=== PATIENT | female | born 1980 | race Caucasian/White ===

== ENCOUNTER → 2018-03-14 20:44 | Outpatient (CLI) | payer OTHER, SELFPAY | PROVIDERS: Visit Provider Obstetrics & Gynecology | DX: Z12.4 Encounter for screening for malignant neoplasm of cervix (principal) | CPT/HCPCS: 87624; 88175; G0145 ==

== ENCOUNTER → 2018-04-22 09:29 | Outpatient (CLI) | payer OTHER, SELFPAY ==
[2018-01-18 07:03] VITALS: BMI 24.1
--- NOTE | 2018-04-22 10:02 | BI_ITS ---
MAMMOGRAPHY - BILATERAL SCREENING REASON FOR EXAM: Female, 37 years old. Routine annual screening examination. PERTINENT HISTORY: Aunt with breast cancer. TECHNIQUE: Digital bilateral breast delfino (3D mammographic acquisition) in the CC and MLO projections. 2-D mediolateral oblique (MLO) and craniocaudad (CC) views of both breasts were obtained. CAD: Full Field Digital Mammography with Computer Added Detection was performed. COMPARISON: Comparison is made with prior study dated December 02, 2016. FINDINGS: Breast Composition: The breasts are heterogeneously dense, which may obscure small masses. There are no dominant masses or suspicious calcifications. No other significant abnormalities are identified. There has been no significant change since the prior study. BI/SCREENING MAMM (CAD), BILAT IMPRESSION: Stable bilateral screening mammogram. Yearly follow-up mammogram recommended. (A) ASSESSMENT CATEGORY: BIRADS Category 1: Negative. A letter regarding these results will be sent to the patient by the facility within 30 days. Approximately 10% of breast cancers are not detected by mammography. A normal mammogram should not delay biopsy of a clinically suspicious abnormality. [id number] Electronically Signed: Alden Garcia MD at 15:28 EST Tel [phone], Service support ,
== END ==
PROVIDERS: Family Provider Family Medicine; PCP Family Medicine; Referring Provider Obstetrics & Gynecology; Visit Provider Obstetrics & Gynecology
DX: Z12.31 Encounter for screening mammogram for malignant neoplasm of breast (principal)
CPT/HCPCS: 77063; 77067

== ENCOUNTER → 2018-04-24 16:17 | Outpatient (CLI) | payer OTHER, SELFPAY ==
[2018-04-24 15:48] VITALS: BMI 25.2
== END ==
PROVIDERS: Family Provider Family Medicine; PCP Family Medicine; Referring Provider Chiropractor; Visit Provider Chiropractor
DX: M99.01 Segmental and somatic dysfunction of cervical region (principal)
CPT/HCPCS: 72040

== ENCOUNTER → 2018-11-13 14:05 | Outpatient (CLI) | payer OTHER, SELFPAY ==
[2018-10-23 14:49] VITALS: BMI 25.2
== END ==
PROVIDERS: Family Provider Family Medicine; PCP Family Medicine; Referring Provider Family Medicine; Visit Provider Family Medicine
DX: N39.0 Urinary tract infection, site not specified (principal)
CPT/HCPCS: 87077; 87086; 87088; 87186

== ENCOUNTER → 2018-11-23 11:14 | Outpatient (CLI) | payer OTHER, SELFPAY ==
[2018-10-23 14:49] VITALS: BMI 25.2
--- NOTE | 2018-11-23 11:17 | US_ITS ---
STUDY: RENAL ULTRASOUND - COMPLETE REASON FOR EXAM: Female, 38 years old. Recurring urinary tract infections TECHNIQUE: Ultrasound evaluation of the kidneys was performed with real-time and static devries-scale imaging. COMPARISON: None. FINDINGS: RIGHT KIDNEY: Normal location of the right kidney, which is normal in size. The right kidney measures 9.9 cm. There is a normal cortex of the right kidney. The renal cortex measures 1.1 cm. There is no right renal mass or cyst. There are no right renal calculi. There is no right hydronephrosis. DISTAL RIGHT URETER: There is non-visualization of the distal right ureter. There is no demonstrated right ureterovesical junction calculus. There is a visualized right ureteral jet. LEFT KIDNEY: Normal location of the left kidney, which is normal in size. The left kidney measures 9.2 cm. There is a normal cortex of the left kidney. The renal cortex measures 1.5 cm. There is no left renal mass or cyst. There is a 4 mm echogenic focus within the lateral left renal cortex. There is no left hydronephrosis. DISTAL LEFT URETER: There is non-visualization of the distal left ureter. There is no demonstrated left ureterovesical junction calculus. There is a visualized left ureteral jet. BLADDER: The distended urinary bladder has a volume of 215.29 ml. The empty urinary bladder has a volume of 9.44 ml. There is a normal wall thickness of the distended urinary bladder. There is no demonstrated mass within the urinary bladder. There are no demonstrated bladder calculi. US/Kidney and Bladder IMPRESSION: 4 mm echogenic focus lateral left kidney most likely a renal calculus, this could also represent small interlobar vessel less likely. Otherwise unremarkable. Electronically Signed: [place], at 17:03 EDT Tel , Service support ,
== END ==
PROVIDERS: Family Provider Family Medicine; PCP Family Medicine; Referring Provider Urology; Visit Provider Urology
DX: N39.0 Urinary tract infection, site not specified (principal)
CPT/HCPCS: 76770

== ENCOUNTER → 2018-11-24 16:42 | Outpatient (CLI) | payer OTHER, SELFPAY ==
[2018-10-23 14:49] VITALS: BMI 25.2
[2018-11-24 17:35] LABS: Absolute Neutrophil Count 3.3 X10^3/uL (2.0-7.7); Basophil# 0.05 X10^3/uL; Basophil% 0.9 % (0-1); Eosinophil# 0.09 X10^3/uL; Eosinophils% 1.6 % (0-5); Hematocrit 42.9 % (37-47); Hemoglobin 14.7 g/dl (12.0-15.0); Lymphocyte % 32.8 % (19-41); Mean Corp Hgb Conc 34.3 g/gl (32-36); Mean Corpuscular Hgb 30.8 pg (27.0-32.0); Mean Corpuscular Volume 89.7 fL (81-99); Monocyte# 0.45 X10^3/uL; Monocyte% 7.8 % (0-10); Neutrophil # 3.29 X10^3/uL (2.7-7.7); Neutrophil % 56.7 % (47-70); Platelet Count 291 K/mm3 (150-450); RBC Distribution Width SD 39.3 fl (35.1-43.9); Red Blood Count 4.78 M/mm3 (4.2-5.4); White Blood Count 5.8 K/mm3 (4.4-11.0)
[2018-11-24 17:46] LABS: POSITIVE COUNT NO; POSITIVE DIFFERENTIAL NO; POSITIVE MORPHOLOGY NO
[2018-11-24 17:56] LABS: ALB/GLOB Ratio 1.5 RATIO (0.9-2.4); AST(SGOT) 18 U/L (15-37); Alanine Aminotransfer ALT/SGPT 27 U/L (13-56); Albumin, Serum 4.3 g/dL (3.2-5.0); Alkaline Phosphatase 61 U/L (45-117); Anion Gap 12 (5-15); BUN 10 mg/dL (7-18); BUN/Creat Ratio 12.8 RATIO (10-20); Calcium,Total 8.9 mg/dL (8.5-10.1); Chloride 101 mmol/L (98-107); Cholesterol 199 mg/dL (200); Creatinine, Serum 0.78 mg/dL (0.55-1.02); EST Glomerular Filtration Rate 87 mL/min (>60); Est Glom Filt Rate - Afr Amer 105 mL/min (>60); Globulin 2.9 g/dL (2.2-4.2); Glucose 93 mg/dL (74-106); High Density Lipoprotein 98 mg/dL; Potassium 3.7 mmol/L (3.5-5.1); Protein, Total 7.2 g/dL (6.4-8.2); Sodium Level 141 mmol/L (136-145); Thyroid Stim Hormone (TSH) 2.78 uIU/mL (0.358-3.74); Triglycerides 45 mg/dL; Very Low Density Lipoprotein 9 mg/dL (5-40)
== END ==
PROVIDERS: Family Provider Family Medicine; PCP Family Medicine; Referring Provider Family Medicine; Visit Provider Family Medicine
DX: R03.0 Elevated blood-pressure reading, without diagnosis of hypertension (principal)
CPT/HCPCS: 36415; 80053; 80061; 84443; 85025

== ENCOUNTER → 2018-11-28 13:56 | Outpatient (CLI) | payer OTHER, SELFPAY ==
[2018-10-23 14:49] VITALS: BMI 25.2
--- NOTE | 2018-11-28 14:00 | CT_ITS ---
STUDY: CT ABDOMEN AND PELVIS WITHOUT CONTRAST REASON FOR EXAM: Female, 38 years old. Abnormal renal ultrasound,, possible stone. RADIATION DOSAGE (If Supplied By Facility): CTDIvol = ( 8.78 ) mGy, DLP = ( 366.88 ) mGycm TECHNIQUE: Transaxial images were obtained from the dome of the diaphragm to the symphysis pubis without oral contrast, and without intravenous contrast. Sagittal and coronal images were reconstructed. Individualized dose optimization techniques were used for this CT. COMPARISON: Renal ultrasound 11/23/2018 FINDINGS: The visualized lung bases are unremarkable. The visualized portions of the heart are within normal limits. Normal liver. Normal gallbladder and extrahepatic biliary system. Normal spleen. Normal pancreas. Normal bilateral adrenal glands. Normal right kidney. Normal left kidney. Normal visualized stomach. Normal small intestine. Large amount of stool throughout the colon suggestive of constipation. The appendix is visualized and appears normal. Normal abdominal aorta. Normal inferior vena cava. Normal retroperitoneum. Normal urinary bladder. Normal abdominal wall. Normal osseous structures. CT/Abdomen/Pelvis without Cont IMPRESSION: 1. No renal or ureteral stone. 2. Suspect constipation. Electronically Signed: Kristopher Kumar MD at 17:40 EDT Tel , Service support ,
== END ==
PROVIDERS: Family Provider Family Medicine; PCP Family Medicine; Referring Provider Urology; Visit Provider Urology
DX: N20.0 Calculus of kidney (principal)
CPT/HCPCS: 74176

== ENCOUNTER → 2019-02-14 16:08 | Outpatient (CLI) | payer OTHER, SELFPAY ==
[2019-02-12 10:43] VITALS: BMI 25.2
--- NOTE | 2019-02-14 16:10 | US_ITS ---
STUDY: ULTRASOUND OF PELVIS CLINICAL: Female, 38 years old. Chronic constipation TECHNIQUE: Transvaginal and transabdominal COMPARISON: None. FINDINGS: Status post hysterectomy.. Normal right ovary, measuring 3.0 x 2.3 x 1.3 cm. There are multiple follicles without a dominant cyst. Normal left ovary, measuring 3.0 x 2.0 x 1.3 cm. There is a 1.2 cm dominant cyst. There is no free fluid in the pelvis. US/Pelvic (Non ) IMPRESSION: Status post hysterectomy. Small left ovarian cyst. Electronically Signed: Dipesh Andrade DO at 18:11 EDT Tel [phone], Service support ,
== END ==
PROVIDERS: Family Provider Family Medicine; PCP Family Medicine; Referring Provider Obstetrics & Gynecology; Visit Provider Obstetrics & Gynecology
DX: K59.00 Constipation, unspecified (principal)
CPT/HCPCS: 76856; 93976

== ENCOUNTER 2019-02-27 06:24 | Day surgery (SDC) | payer OTHER, SELFPAY ==
--- NOTE | 2019-02-21 02:34 | HP_ITS ---
Intake Vital Signs 02/21/19 Body Mass Index (BMI) 25.2 02/21/19 Height 5 ft 2 in 02/21/19 Weight: 136 lb 02/21/19 Body Mass Index (BMI) 24.8 02/21/19 Blood Pressure 136/85 H 02/21/19 Blood Pressure Location Rt brachial 02/21/19 Respiratory Rate 16 Intake Visit Reasons: Change of Bowel Habits Chief Complaint: r/o adhesions Therapy Site Coordinator Required: No Is patient in pain?: No Allergies hydromorphone [From Dilaudid] Allergy (Verified 02/21/19 14:05) Rash CHLORAPREP Allergy (Uncoded 02/21/19 14:05) Hives Medications lactobacillus combination no.8 3 billion cell capsule 3,000 mmu cells PO DAILY 02/12/19 [History Confirmed 02/21/19] linaclotide 145 mcg capsule 145 mcg PO DAILY 02/12/19 [History Confirmed 02/21/19] lisinopril 20 mg-hydrochlorothiazide 25 mg tablet 1 tab PO DAILY 02/12/19 [History Confirmed 02/21/19] multivitamin,ez-fgjx-kxoptsmt tablet 1 tab PO DAILY 02/12/19 [History Confirmed 02/21/19] PFSH Medical History (Updated 02/21/19 @ 14:05 by Sowmya Phillips) Constipation (Acute) Surgical History History of LAVH (Acute) History of bunionectomy of both great toes (Acute) Family History Other Breast cancer Diabetes Hypertension Social History (Updated 02/21/19 @ 14:34 by Kevin Licona MD) Smoking Status: Never smoker alcohol intake: current alcohol intake frequency: a few times a week Alcohol type: wine details: social substance use type: does not use caffeine: Yes what type of physical activity do you participate in: none seatbelt use: always do you feel safe at home: Yes additional social history: [employer]- [employer]. Patient works at [employer] HPI HPI HPI: RAMANDEEP SNOW, is a 38 F who presents to the office today for HPI HPI Surgical H&P: Yes HPI: RAMANDEEP SNOW, is a 38 F who presents to the office today for chronic constipation. Patient reports that she had lap scopic assisted vaginal hysterectomy in 2014. Ever since shortly after surgery she has been having constipation. She is tried multiple medications including senna and Linzess. She reports that the only time she feels relief is that she has liquid bowel movements. She reports that her abdomen does hurt when she is constipated. She says that her stools have changed caliber and are very thin. She has no family history of colon cancer. She denies any blood in her stool. She has never had a colonoscopy. ROS General General: Yes fatigue; no weight change Cardio Cardiovascular: Yes high blood pressure; no murmur, pacemaker, heart disease, atrial fibrillation, heart attack, heart stent, palpitations, shortness of breat with exertion or chest pain Psych Psychiatric: Yes anxiety; no depression Resp Respiratory: No shortness of breath, No sleep apnea, No cough, No COPD, No asthma, No emphysema, No wheezing Gastro Gastrointestinal: Yes abdominal pain, No nausea or vomiting, No diarrhea, Yes constipation, No blood in stool, No acid reflux, No hemorrhoids, No ulcers, No gallbladder problem, No black,tarry stools Jony Hematologic: No blood thinners Exam Const General: cooperative Orientation: alert, oriented x3 Resp Effort & Inspection: normal respiratory effort Auscultation: clear to auscultation bilaterally Cardio Rate: regular rate Rhythm: regular rhythm Heart Sounds: no murmurs GI Inspection: non-distended Palpation: soft, nontender Assessment & Plan Problems 1. Chronic constipation K59.09 likely increased due to anatomical changes in pelvic loffor strength and distribution after hysterectomy. recommend elimination diet, colonoscopy and GI eval. consider naturopathic intervention if normal and/or pelvic floor physical therapy. 2. Change in stool caliber R19.5 Plan The patient is having chronic constipation. She says that her stool calibers of also change. She says this started abruptly with her hysterectomy. The patient reports that she does have abdominal pain with the constipation. She is taking Linzess and using MiraLAX. She also uses senna. I recommend starting with a colonoscopy to check for stricture or external compression. If this is not conclusive she will have barium enema. I explained endoscopy in detail to the patient. I explained the risks including but not limited to stroke or heart attack with anesthesia, perforation of the GI tract, bleeding, infection. I explained that any of these could necessitate further emergency surgery. The patient understands and all questions were answered sufficiently. The patient wishes to proceed with procedure. Kevin Licona MD Pager: [facility] [address] [place] [address], [address] [place] [address] Office: Orders Orders: Colonoscopy Today K59.09, R19.5 Plan Detail Goals Decrease pain Decrease spasm Barriers Decreased lordosis Coding Level of Care Code Off vis,new,level 3 Diagnoses Chronic constipation K59.09 Change in stool caliber R19.5 02/21/19 1434 <Electronically signed by Kevin villalba MD> Date _ Kevin Licona MD I have re-examined the patient. There are no clinical changes since date of exam.
[2019-02-21 14:06] VITALS: BMI 25.2
[2019-02-27 07:01] VITALS: BP 117/78; PULSE 61; RESP 14; TEMP 37.1; O2SAT 100; BMI 24.7
[2019-02-27] MEDS: Lactated Ringers 1,000 ML 100 ML IV (07:13)
[2019-02-27 08:25] VITALS: BP 117/78; BP 91/57; PULSE 72; RESP 16; TEMP 36.2; O2SAT 97
--- NOTE | 2019-02-27 08:27 | OP.ENDO_ITS ---
02/27/2019 Tony Severino MD [address] [phone] Re : Colonoscopy procedure for Kerri Barry Dear Dr. Severino This procedure was performed on Wednesday, February 27, 2019. My impressions and recommendations are as follows: Impressions : - The entire examined colon is normal on direct and retroflexion views. - No specimens collected. Recommendations : - Discharge patient to home. - Resume previous diet. - Continue present medications. - Repeat colonoscopy in 10 years for screening purposes. My findings are described in the full procedure note, which is enclosed. If I can be of further assistance, please feel free to contact me at Doctor phone number(s): , Work: . Sincerely, Kevin Licona MD 02/27/2019 8:27:19 AM This report has been signed electronically.
[2019-02-27 08:30] VITALS: BP 117/78; BP 96/52; PULSE 66; RESP 16; O2SAT 100
[2019-02-27 08:35] VITALS: BP 111/59; BP 117/78; PULSE 62; RESP 18; O2SAT 100
[2019-02-27 08:40] VITALS: BP 117/78; BP 91/62; PULSE 62; RESP 18; TEMP 36.7; O2SAT 100
[2019-02-27 08:45] VITALS: BP 117/78
== END 2019-02-27 09:29 | disposition home or self-care (01) ==
LOC: EN 06:26 → AC 06:28
PROVIDERS: Family Provider Family Medicine; PCP Family Medicine; Referring Provider Family Medicine; Visit Provider Surgery
PROC: 0DJD8ZZ Inspection of Lower Intestinal Tract, Via Natural or Artificial Opening Endoscopic (ICD-10-PCS; CPT 45378; principal; 2019-02-27 07:55)
DX: K59.04 Chronic idiopathic constipation (principal); Z88.5 Allergy status to narcotic agent; R19.5 Other fecal abnormalities; Z90.710 Acquired absence of both cervix and uterus
CPT/HCPCS: 45378; J7120; J2405

== ENCOUNTER → 2019-08-27 08:12 | Outpatient (CLI) | payer OTHER, SELFPAY ==
[2019-08-13 15:40] VITALS: BMI 24.7
--- NOTE | 2019-08-27 08:13 | BI_ITS ---
MAMMOGRAPHY - BILATERAL SCREENING REASON FOR EXAM: Female, 39 years old. Routine annual screening examination. PERTINENT HISTORY: Aunt with breast cancer. TECHNIQUE: Digital bilateral breast sydney (3D mammographic acquisition) in the CC and MLO projections. 2-D mediolateral oblique (MLO) and craniocaudad (CC) views of both breasts were obtained. CAD: Full Field Digital Mammography with Computer Added Detection was performed. COMPARISON: Comparison is made with prior study dated April 22, 2018 and December 02, 2016. FINDINGS: Breast Composition: The breasts are heterogeneously dense, which may obscure small masses. There are no dominant masses or suspicious calcifications. No other significant abnormalities are identified. There has been no significant change since the prior study. BI/SCREEN MAMM (CAD) W/SYDNEY BILAT IMPRESSION: Stable bilateral screening mammogram. Yearly follow-up mammogram recommended. (A) ASSESSMENT CATEGORY: BIRADS Category 1: Negative. A letter regarding these results will be sent to the patient by the facility within 30 days. Approximately 10% of breast cancers are not detected by mammography. A normal mammogram should not delay biopsy of a clinically suspicious abnormality. [id number] Electronically Signed: Alden Garcia, at 9:17 EDT , Service support ,
== END ==
PROVIDERS: PCP Family Medicine; Referring Provider Obstetrics & Gynecology; Visit Provider Obstetrics & Gynecology
DX: Z12.31 Encounter for screening mammogram for malignant neoplasm of breast (principal)
CPT/HCPCS: 77063; 77067

== ENCOUNTER 2020-07-25 06:54 | Day surgery (SDC) | payer OTHER, SELFPAY ==
[2019-08-13 15:40] VITALS: BMI 24.7
[2020-07-09 14:37] LABS: Absolute Lymphocyte Count 1.22 X10^3/uL (0.83-4.51); Absolute Neutrophil Count 2.5 X10^3/uL (2.0-7.7); Basophil# 0.03 X10^3/uL; Basophil% 0.7 % (0-1); Eosinophil# 0.11 X10^3/uL; Eosinophils% 2.6 % (0-5); Hematocrit 43.1 % (37-47); Hemoglobin 14.4 g/dL (12.0-15.0); Lymphocyte # 1.22 X10^3/ul (4.0); Lymphocyte % 29.1 % (19-41); Mean Corp Hgb Conc 33.4 g/dL (32-36); Mean Corpuscular Hgb 30.4 pg (27.0-32.0); Mean Corpuscular Volume 91.1 fL (81-99); Mean Platelet Vol. 9.8 fl (6.2-12.0); Monocyte# 0.38 X10^3/uL; Monocyte% 9.1 % (0-10); NRBC Flagged by Analyzer 0 % (0-5); Neutrophil # 2.45 X10^3/uL (2.7-7.7); Neutrophil % 58.5 % (47-70); Platelet Count 230 K/mm3 (150-450); RBC Distribution Width CV 12.1 % (11.6-14.6); RBC Distribution Width SD 40.6 fl (35.1-43.9); Red Blood Count 4.73 M/mm3 (4.2-5.4); White Blood Count 4.2 K/mm3 (4.4-11.0)
[2020-07-09 15:12] LABS: ALB/GLOB Ratio 1.1 RATIO (0.9-2.4); AST(SGOT) 102 U/L (15-37); Alanine Aminotransfer ALT/SGPT 141 U/L (13-56); Albumin, Serum 3.8 g/dL (3.2-5.0); Alkaline Phosphatase 91 U/L (45-117); Anion Gap 7 (5-15); BUN 15 mg/dL (7-18); BUN/Creat Ratio 13.6 RATIO (10-20); Calcium,Total 8.9 mg/dL (8.5-10.1); Chloride 101 mmol/L (98-107); EST Glomerular Filtration Rate 58 mL/min (>60); Est Glom Filt Rate - Afr Amer 70 mL/min (>60); Globulin 3.6 g/dL (2.2-4.2); Glucose 88 mg/dL (74-106); Potassium 3.5 mmol/L (3.5-5.1); Protein, Total 7.4 g/dL (6.4-8.2); Sodium Level 137 mmol/L (136-145)
[2020-07-21 09:18] LABS: ALB/GLOB Ratio 1.2 RATIO (0.9-2.4); AST(SGOT) 31 U/L (15-37); Alanine Aminotransfer ALT/SGPT 42 U/L (13-56); Albumin, Serum 3.7 g/dL (3.2-5.0); Alkaline Phosphatase 67 U/L (45-117); Anion Gap 3 (5-15); BUN 16 mg/dL (7-18); BUN/Creat Ratio 22.3 RATIO (10-20); Calcium,Total 8.7 mg/dL (8.5-10.1); Chloride 101 mmol/L (98-107); Creatinine, Serum 0.72 mg/dL (0.55-1.02); EST Glomerular Filtration Rate 95 mL/min (>60); Est Glom Filt Rate - Afr Amer 115 mL/min (>60); Globulin 3.2 g/dL (2.2-4.2); Glucose 78 mg/dL (74-106); Potassium 3.6 mmol/L (3.5-5.1); Protein, Total 6.9 g/dL (6.4-8.2); Sodium Level 136 mmol/L (136-145)
[2020-07-21 09:19] LABS: Vitamin D,25 Hydroxy 26.2 ng/mL
[2020-07-25] VITALS (12 sets, daily range): BP systolic 93–115; BP diastolic 54–87; PULSE 18–84; RESP 16–18; TEMP 36.2–37.2; O2SAT 96–100; BMI 25.0
[2020-07-25] MEDS: Lactated Ringers 1,000 ML 100 ML IV (07:29)
--- NOTE | 2020-07-25 08:46 | PCM.DC.POD ---
Discharge Diet: Light diet - advance as tolerated Discharge Activity: May not drive while taking narcotic pain medications., Use Walker, Use Crutches Weight Bearing Status: No weight bearing - To weightbearing left foot Keep extremity elevated above heart level: Left Leg - Keep left foot elevated at least 50 minutes of every hour Call your doctor if your incision/area has: Continuous Slow Oozing, Sudden Increased Bleeding, Foul Smelling Discharge Call your doctor if you observe: Fever of 101 or Higher, Shortness of breath, Chest pain, Calf discomfort, Uncontrolled pain Cleanse incision/area with: Do not get Incision Wet, Keep Dressing Clean & Dry Allergies/Adverse Reactions: Allergies hydromorphone [From Dilaudid] Allergy (Verified 07/18/20 13:53) Rash chlorhexidine Adverse Reaction (Intermediate, Verified 07/18/20 13:53) rash CHLORAPREP Allergy (Uncoded 07/18/20 13:53) Hives Medications to take at Discharge lisinopril 20 mg-hydrochlorothiazide 25 mg tablet 1 tab PO DAILY 02/12/19 multivitamin,ww-dkon-rqenypht 1 tab PO DAILY 02/12/19 Cranberry 500 mg PO DAILY 02/26/19 Clonazepam [Klonopin] 0.5 mg PO Q4H PRN PRN 07/18/20 Docusate Sodium [Stool Softener] 250 mg PO QHS 07/18/20 Imiquimod 1 applic TOPICAL .COMPLEX PRN 07/18/20 Ibuprofen 400 mg PO Q6H PRN PRN #40 tab 07/25/20 Oxycodone HCl/Acetaminophen [Percocet 5/325] 1 - 2 tab PO Q6H PRN PRN 4 Days #30 tab 07/25/20 The following prescriptions were given: Ibuprofen 400 mg PO Q6H PRN PRN #40 tab PRN Reason: Pain Score 1-10 Transmission Status: Received by [facility] Oxycodone HCl/Acetaminophen [Percocet 5/325] 1 - 2 tab PO Q6H PRN PRN 4 Days #30 tab PRN Reason: Pain Transmission Status: Received by [facility] Primary Care Physician: Tony Severino MD [Primary Care Provider] - Test Results: Test results from this visit will be discussed in further detail at your follow-up appointment, if applicable. Please Follow Up With: Edmund Salazar DPM - call Dr. Salazar if needed, (office), (cell) When: 1 week, sooner if needed
--- NOTE | 2020-07-25 09:00 | BON_PTH ---
PATIENT: RAMANDEEP SNOW LOC: [facility] U#:[id number] AGE/SX: 39/F ROOM: RE07/25/[address]: Dr. Edmund Salazar DPM : 1980 BED: DIS: 07/25/2020 SPEC #: [id number] RECD: 07/25/20 13:19 STATUS: BHARATHI REEaston #: [id number] MAGGI: 07/25/20 09:[address]: Edmund Salazar DEPT: SURGICAL PATHOLOGY RECD BY: Valery Wong ENTERED: 07/28/20 08:14 SP TYPE: Bone OTHR DR: Dr. Tony Severino MD Tissues: Toe, NOS Procedures: Decalcification bone/plaque Surgery Specimen Level III HEADER OPERATION: Left foot first tarsometatarsal lapidus fusion / arthrodesis PRE-OP DIAGNOSIS: Hallux valgus bunion, hammertoe fifth toe TISSUE SUBMITTED: Bone left fifth toe MICROSCOPIC DIAGNOSIS Bone left fifth toe: A piece of bone with reactive changes, clinically hallux valgus bunion, hammertoe fifth toe. NAINA:roel 07/31/2020 MICROSCOPIC DESCRIPTION Slides are reviewed. GROSS DESCRIPTION Received in fixative is one container labeled with the patient's name and designated bone left fifth toe. The specimen consists of a piece of bone measuring 1 x 0.4 x 0.4 cm. The entire specimen is submitted in one cassette after decalcification. / NAINA:roel 07/28/20 TC:5 CPT: 75874, [id number]
--- NOTE | 2020-07-25 09:00 | RAD_ITS ---
STUDY: X-RAY - LEFT FOOT CLINICAL: Female, 39 years old. 1ST TARSOMETATARSAL LAPIDUS FUSION, ARTHRODESIS BUNIONECTOMY. 191 SEC. FL, 5 IMAGES TECHNIQUE: 2 view(s) of the foot. COMPARISON: 08/20/2016 FINDINGS: 191 seconds of fluoroscopy of the left foot was utilized and operating room during surgery and 5 images are submitted for interpretation.. RAD/Foot 2 Views IMPRESSION: Fluoroscopy during surgery. Electronically Signed: Kristopher Kumar MD at 13:26 EST Tel , Service support ,
[2020-07-25] MEDS: Cefazolin 2 GM in 0.9% Normal Saline 100 ML IV (09:07)
[2020-07-25] MEDS: Bupivacaine Mpf 0.5% 30 ML VIAL ×2 (12:14→16:23)
--- NOTE | 2020-07-25 12:45 | PCM.OPRPT ---
Report of Operation Date of Procedure: 07/25/20 Pre-Operative Diagnosis: Hallux valgus bunion, tailor's bunion and 5th digit hammer toe all left foot Post-Operative Diagnosis: Same Surgery/Procedure Performed:: 1st metatarsal cuneiform lapidus arthrodesis left foot. 5th metatarsal osteotomy left foot. 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 She has difficulty walking and doing daily activities due to the pain. Patient has clinical hallux valgus bunion with 1st ray hypermobility, also residual tailor's bunion and contracted deviated 5th toe. We discussed the conditions and treatment options. From surgical standpoint we discussed 1st tarsometatarsal lapidus arthrodesis bunionectomy, 5th metatarsal osteotomy as well as derotational arthroplasty 5th toe. Reviewed the procedures, possible benefits vs risks, goals, expectations, and estimated healing time. Generally speaking advised that post operatively he will need to be nonweightbearing for at least 6 weeks, then 4 weeks in a walking immobilizing boot, possibly longer, advised it may take 12 months or more for complete healing. She expressed understanding and agreement. No guarantees were given nor implied. No warranties were given. Patient freely signed the consent forms and elected to proceed forward with the procedures. Operative procedure: The patient was brought back into the operating room and was placed on the operating room table in the supine position. Patient was carefully secured to the operating room table with a safety belt around patient's waist. A timeout was performed and the patient was properly identified and the surgical plan was confirmed. The patient did received 2g of intravenous Cefazolin for antibiotic prophylaxis. The patient received general anesthesia per the anesthesia team. A well padded pneumatic tourniquet was applied around the left ankle. The left foot was scrubbed, prepped and draped in the usual aseptic fashion. Of note patient was asked multiple times prior to the operative procedure about her allergies, and she relates she is not allergic to Betadine/povidone iodine. Further attention was directed to the left foot. There was noted to be hallux valgus bunion with 1st toe deviated right into the 2nd toe, the hallux was laterally deviated, there was hypermobility of the 1st ray, there was prominent 5th metatarsal head/tailor's bunion deformity and also adductovarus of the 5th digit. A total of 20mL of 0.5% Bupivacaine plain was given as a local nerve block around the 1st and 5th rays on the left foot. Left 1st tarsometatarsal Lapidus arthrodesis bunionectomy: A linear longitudinal skin incision was medially along the medial 1st metatarsal cuneiform joint. This was done using a 15 blade. Careful dissection was completed down to the capsule of the 1st metatarsal cuneiform joint, and it was incised using a 15 blade and partially reflected exposing the joint surfaces. The tibialis anterior tendon was kept intact on the 1st cuneiform. All cartilage from the 1st metatarsal cuneiform joint surfaces (posterior aspect of the base of the 1st metatarsal and the anterior aspect of the 1st cuneiform) were debrided away and was removed down to bleeding bone. This was done with a curette as well as a powered sagittal saw and rasp and saw, being sure not to cause osteonecrosis. The site was flushed out with copious amounts of normal saline solution. The surfaces were fenestrated using a powered drill to aid fusion, and also an osteotome and mallet. The 1st metatarsal was reduced into normal position using a tenaculum from the 1st and 2nd metatarsals distally. The site was fixated use rigid open reduction internal fixation, using 2 Arthrex cannulated 4.0mm FT compression screws as well as 1 Arthrex plantar plate, using a total of 4 locking screws, and 1 cortical screw across the fusion site. There was very good compression and bone to bone contact with the prepped fusion site, in good alignment.The fusion site was rigid and very stable. This was checked and confirmed with intraoperative fluoroscopy. There was noted to be some intercuneiform instability and the proximal locking screw did got across the 1st and 2nd cuneiform joint for intercuneiform stability. This was all done using rigid open reduction internal fixation technique. There was excellent stability present. There was also noted to be significant contracture of the lateral 1st metatarsal phalangeal joint as well as very tight and contracted the adductor hallucis tendon which was causing continued lateral deviation of the 1st toe into the 2nd toe. Therefore a skin incision was overlying the dorsal lateral 1st metatarsal phalangeal joint. Dissection was completed down to the lateral capsule of the 1st MTPJ and adductor hallucis tendon which were released using a 15 blade. The hallux was now in rectus and excellent position. There was was now normal range of motion to the 1st metatarsal phalangeal joint. There was smooth normal gliding range of motion of the 1st metatarsal phalangeal joint at this time with normal alignment. The joint was in good alignment. The surgical site was flushed out with copious amounts of normal saline solution. Tissues were healthy and viable at this time. The subcutaneous tissue layers were reapproximated using 3-0 Vicryl and the skin was reapproximated using 4-0 Monocryl. Cavailon was painted to the edges of the sutured skin incision and steristrips were applied across the sutured skin incision. Left 5th metatarsal osteotomy: Attention was directed to the 5th metatarsal and 5th metatarsal phalangeal joint. A linear longitudinal skin incision was made overlying the dorsal lateral aspect of the 5th metatarsal phalangeal joint and 5th metatarsal using a 15 blade. Dissection was completed down through the subcutaneous tissue layer and down to the joint and metatarsal bone. An oblique osteotomy going from distal dorsal and plantar proximal was completed using a powered sagittal saw. The distal capital fragment (5th metatarsal head fragment) was shifted medially reducing the 4th intermetatarsal angle and correcting the tailor's bunion. The osteotomy was fixated using 2 x 0.045in kwires in a percutaneous fashion. The osteotomy fixation and placement was checked on intraoperative fluoroscopy and noted to be in good position. Clinically there was good rigid fixation. The surgical site was flushed out with copious amounts of normal saline solution. Tissues were healthy and viable at this time. The subcutaneous tissue layers were reapproximated using 3-0 Vicryl and the skin was reapproximated using 4-0 Monocryl. Cavilon was painted to the edges of the sutured skin incision and steristrips were applied across the sutured skin incision. Left 5th toe derotational arthroplasty: Attention was directed to the 5th toe, it was in adductovarus deformity position. Two oblique semi-elliptical converging skin incisions were made around the dorsal aspect of the proximal interphalangeal joint (PIPJ) of the 5th toe. The skin within the incisions was excised. The extensor digitorum longus tendon was visualized and incised transversely with a 15 blade. The dorsal PIPJ joint capsule was incised with a 15 blade. The extensor tendon was reflected off of the head of the proximal phalanx. The head of the proximal phalanx was resected using a powered sagittal saw, and this was sent to pathology. The site was flushed out with copious amounts of normal saline solution. A 0.062 inch kwire was placed through the phalanges of the toe holding the toe in rectus and in excellent position. This was confirmed with intra operative fluoroscopy. The site was again flushed out with copious amounts of normal saline solution. The tissues were healthy and viable. The joint capsule and extensor digitorum longus tendon was reapproximated using 3-0 Vicryl, the skin was reapproximated using 4-0 Monocryl. The kwire was trimmed outside of the toe at the distal aspect and was capped with a pin cap. An additional 10 mL of 0.5% Bupivacaine plain was given as a local nerve block around the 1st and 5th rays. During the above procedure the pneumatic tourniquet inflated for hemostasis, and was deflated after 90 minutes, was down for 10 minutes, and was reinflated for an additional 24 minutes (total tourniquet time was 114 minutes), and there was immediate return of warmth and perfusion to the foot each time it was deflated, including to all 5 toes. CFT < 2 seconds to all toes. There was hemostasis achieved prior to incision closure. A dressing was applied which consisted of adaptic, 4x4 gauze, Kerlix and atilio bandage. Of note all vital structures, including all vital neurovascular structures were properly identified, they were protected and retracted as necessary throughout the above procedures. The patient tolerated the above procedure well and the anesthesia well with no complications. The patient was transported from the operating room to the recovery room with vital signs stable and in good condition. Post operative orders were placed, post operative xrays were obtained in the recovery room. Upon review of the formal post operative xrays it was noted there was displacement of the 5th metatarsal, best seen on the lateral view. I discussed this with the patient and the options. We checked it under mini c-arm fluoroscopy in the recovery room and attempted closed reduction which was not successful. Therefore I discussed this further with the patient, and we agreed we would go back to the OR today to fix this. See the following operative report. Grafts/Implants Used: 1 arthrex plantar plate & screws, kwires - Complications None
--- NOTE | 2020-07-25 12:57 | RAD_ITS ---
STUDY: X-RAY - LEFT FOOT CLINICAL: Female, 39 years old. post op bunionectomy TECHNIQUE: 3 view(s) of the foot. COMPARISON: 08/20/2016 FINDINGS: Normal talus, calcaneus, and tarsal bones. Interval first tarsometatarsal joint arthrodesis with plate and screws. Interval osteotomy and wire fixation of the fifth metatarsal bone. Normal metatarsophalangeal joint of the great toe. Normal tibial and fibular sesamoid bones. Normal interphalangeal joint of the great toe. Normal phalanges of the great toe. Normal second through fifth metatarsophalangeal joints. Interval wire fixation of the fifth digit. The soft tissue structures are unremarkable. RAD/Foot min 3 Views IMPRESSION: Postsurgical changes. Electronically Signed: Kristopher Kumar MD at 13:26 EST Tel , Service support ,
--- NOTE | 2020-07-25 14:30 | RAD_ITS ---
STUDY: X-RAY - LEFT FOOT CLINICAL: Female, 39 years old. Pinning in OR TECHNIQUE: 4 intraoperative view(s) of the foot. 34 seconds of fluoroscopy were utilized. COMPARISON: None. FINDINGS: The provided images demonstrate pinning of the fifth metacarpal. There is resection of the distal fifth proximal phalanx with pinning of the phalanges. Please refer to the operative report for further details. RAD/Foot min 3 Views IMPRESSION: Fluoroscopy provided the OR during the pinning of the fifth ray. Electronically Signed: Seng Chavis DO at 22:36 EST Tel [phone], Service support ,
--- NOTE | 2020-07-25 18:20 | RAD_ITS ---
STUDY: X-RAY - LEFT FOOT CLINICAL: Female, 39 years old. POST OP TECHNIQUE: 3 view(s) of the foot. COMPARISON: Intraoperative images, 07/25/2020. Left foot, 07/25/2020 ([id number]). FINDINGS: Again seen is stable fusion of the first tarsometatarsal joint. There is no evidence of pinning of the fracture of the fifth metatarsal. Again seen is pinning of the fifth digit unchanged from the earlier study. RAD/Foot min 3 Views IMPRESSION: Surgical pinning of the fifth metatarsal fracture. The remainder of the findings are unchanged. Electronically Signed: Seng Chavis DO at 22:38 EST Tel [phone], Service support ,
--- NOTE | 2020-07-25 19:10 | PCM.OPRPT ---
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 I discussed with patient and we discussed the options. We agreed to proceed back to the operating room today for reduction and fixation of the displaced 5th metatarsal osteotomy. No guarantees were given nor implied. No warranties were given. She expressed understanding and agreement and elected to proceed forward. Possible benefits vs risks discussed with patient in detail, all same as before. Operative Procedure: The patient was brought back into the operating room and was placed on the operating room table in the supine position. Patient was carefully secured to the operating room table with a safety belt around patient's waist. A timeout was performed and the patient was properly identified and the surgical plan was confirmed. The patient did received 2g of intravenous Cefazolin for antibiotic prophylaxis previously in the day. The patient received MAC anesthesia per the anesthesia team. The left foot was scrubbed, prepped and draped in the usual aseptic fashion. Again, of note patient was asked multiple times prior to the operative procedure about her allergies, and she relates she is not allergic to Betadine/povidone iodine. Further attention was directed to the left foot. A sterile well padded pneumatic tourniquet was applied around the left ankle.The foot was elevated for exsanguination. The ankle pneumatic tourniquet was inflated to 250mmHg. An additional 10mL of 0.5% Bupivacaine plain was given around the 1st and 5th rays for further pain control (she related prior to just starting the numbing medication was starting to draper off). Left 5th metatarsal osteotomy reduction and fixation: Attention was directed to the 5th metatarsal and 5th metatarsal phalangeal joint. The previously made closed incision was reopened at level of the dorsal lateral aspect of the 5th metatarsal phalangeal joint and 5th metatarsal using a 15 blade. Dissection was completed down through the subcutaneous tissue layer and down to the joint and metatarsal bone. The previous sutures were removed. The site was visualized and there was displaced 5th metatarsal osteotomy, otherwise no complication noted. There were no new fractures, no broken hardware. The reduction was attempted with keeping the current kwires in place but unable to properly reduce. The kwires were removed from the metatarsal as the metatarsal. The 5th metatarsal was reduced so that the 4th intermetatarsal was reduced for correction of the tailor's bunion. The reduced 5th metatarsal was fixated using two new 0.045in kwires, one of which was going across the osteotomy site through the medullary canal of the metatarsal, and the other kwire from dorsal to plantar across the osteotomy site. The kwires were trimmed. The 5th metatarsal phalangeal joint was checked and the kwire was not in the joint. The site was stable and in good position. The reduction and fixation was confirmed using intraoperative fluoroscopy. The site was flushed with copious amounts of normal saline solution. s/p left 1st tarsometatarsal arthrodesis and 5th toe derotational arthroplasty: Stable in good position at this time with no evidence of complication. The pneumatic tourniquet was deflated after 64 minutes, and there was immediate return of warmth and perfusion to the foot, including to all 5 toes. CFT < 2 seconds to all toes. There was hemostasis achieved. A dressing was applied which consisted of adaptic, 4x4 gauze, Kerlix and atilio bandage. Of note all vital structures, including all vital neurovascular structures were properly identified, they were protected and retracted as necessary throughout the above procedures. The patient tolerated the above procedure well and the anesthesia well with no complications. The patient was transported from the operating room to the recovery room with vital signs stable and in good condition. Post operative orders were placed, post operative instructions were reviewed with the patient several times pre operatively (today and pre op visits in office) - no weightbearing left foot, keep foot elevated for at least 50 minutes of every hour, keep dressing clean, dry and intact, follow up with me within 1 week in office - sooner if needed. This was typed out and these written instructions were also reviewed with patient and given to patient to take home. Percocet 5/325mg PO q 6 hours as well as Ibuprofen 400mg PO q 6 hours was prescribed to help with post op pain control, also Augmentin 500/125mg PO q 12 hours was prescribed to help prevent infection as well. This was discussed with patient as well. OARRS was checked prior to prescribing percocet. Patient relates he already has a knee walker, but crutches were also prescribed as well. A surgical shoe was also fitted and dispensed for left foot to help keep the foot protected. With patient's consent I did review the above with patient's boyfriend Inocencio. Grafts/Implants Used: 2 x 0.045in kwires - Complications None
== END 2020-07-25 19:30 | disposition home or self-care (01) ==
LOC: SDC 06:55 → AC 06:55
PROVIDERS: PCP Family Medicine; Referring Provider Podiatrist; Visit Provider Podiatrist
PROC: (CPT 28292; principal; 2020-07-25 08:45)
DX: M20.12 Hallux valgus (acquired), left foot (principal); M21.622 Bunionette of left foot; M20.42 Other hammer toe(s) (acquired), left foot; K59.00 Constipation, unspecified; I10 Essential (primary) hypertension; S92.352A Displaced fracture of fifth metatarsal bone, left foot, initial encounter for closed fracture
CPT/HCPCS: 01480; 28110; 28475; 36415; 73620; 73630; 76000; 80053; 82306; 85025; 87426; 88304; 88305; 88311; C1713; C9803; J7120; J2405

== ENCOUNTER → 2020-08-01 13:15 | Outpatient (CLI) | payer OTHER, SELFPAY ==
[2020-07-25 07:19] VITALS: BMI 25.0
--- NOTE | 2020-08-01 13:18 | VDLE_ITS ---
Reason For Study: left calf pain RIGHT LEFT GSV is normal. GSV is normal. CFV is compressible, spontaneous, phasic, CFV is compressible, spontaneous, phasic, competent and demonstrates normal competent, and demonstrates normal augmentation. augmentation. FV is compressible, spontaneous, phasic, FV is compressible, spontaneous, phasic, competent and demonstrates normal competent and demonstrates normal augmentation. augmentation. POP V is compressible, spontaneous, phasic, POP V is compressible, spontaneous, phasic, competent and demonstrates normal competent and demonstrates normal augmentation. augmentation. T/P Trunk is compressible. T/P Trunk is compressible. PTV is compressible. PTV is compressible. RT PerV is compressible. LT PerV is compressible. Procedure This is a venous duplex using B-mode, color flow and spectral Doppler. Exam performed in department. A preliminary report was called and/or faxed to Dr. Salazar @ [phone] @ 2 pm. Interpretation Summary Deep veins of the lower extremities are bilaterally patent and compressible segmentally. There is no evidence of deep vein thrombosis on either side. Valvular competence appears intact within the proximal deep venous systems bilaterally. The great saphenous veins appear bilaterally patent and compressible segmentally. Ordering Physician: Edmund Salazar Referring Physician: Tony Severino Performed By: Michelle Cruz, RDCS, RVT
== END ==
PROVIDERS: PCP Family Medicine; Referring Provider Podiatrist; Visit Provider Podiatrist
DX: M79.669 Pain in unspecified lower leg (principal)
CPT/HCPCS: 93970

== ENCOUNTER → 2020-08-14 16:11 | Outpatient (CLI) | payer OTHER, SELFPAY ==
[2020-07-25 07:19] VITALS: BMI 25.0
--- NOTE | 2020-08-14 16:13 | RAD_ITS ---
STUDY: X-RAY - LEFT FOOT CLINICAL: Female, 39 years old. OSTEOTOMY TECHNIQUE: 3 view(s) of the foot. COMPARISON: 07/25/2020 FINDINGS: No definite change. Stable orthopedic pins through the proximal and distal phalanges of the fifth digit. Status post resection of the head of the proximal fifth digit. Postsurgical changes of the head of the fifth metatarsal, stable. Stable appearance of compression plate and numerous screws across the base of the first metatarsal, into the medial cuneiform and one screw extends into the middle cuneiform. Fracture lines are still evident involving the shaft of the fifth metatarsal. This is best seen on lateral views. Stable appearance of osteotomy of the medial surface of the head of the first metatarsal. RAD/Foot min 3 Views IMPRESSION: Stable postsurgical changes of the medial and lateral structures of the left foot. No definite evidence of interval healing since prior exam. Electronically Signed: Junior Carrasquillo MD at 23:57 EST , Service support ,
== END ==
PROVIDERS: PCP Family Medicine; Referring Provider Podiatrist; Visit Provider Podiatrist
DX: Z98.890 Other specified postprocedural states (principal)
CPT/HCPCS: 73630

== ENCOUNTER → 2020-09-02 09:26 | Outpatient (CLI) | payer OTHER, SELFPAY ==
[2020-07-25 07:19] VITALS: BMI 25.0
--- NOTE | 2020-09-02 09:55 | RAD_ITS ---
STUDY: X-RAY - LEFT FOOT CLINICAL: Follow-up postoperative changes for hallux valgus deformity. TECHNIQUE: 3 view(s) of the foot. COMPARISON: Radiographs 08/14/2020. FINDINGS: Normal talus, calcaneus, and tarsal bones. Normal visualized subtalar, talonavicular, calcaneocuboid, and tarsal articulations. There is orthopedic hardware with fusion of the of the first and second tarsometatarsal articulations. There is no interval change of the postoperative changes of the first metatarsal head and fifth metatarsal. Normal metatarsophalangeal joint of the great toe. Normal tibial and fibular sesamoid bones. Normal interphalangeal joint of the great toe. Normal phalanges of the great toe. Normal second through fifth metatarsophalangeal joints. Status post resection of the head of the fifth proximal phalanx with an orthopedic pin transfixing the fifth phalanges. The soft tissue structures are unremarkable. RAD/Foot min 3 Views IMPRESSION: Stable postoperative changes of the left foot. Electronically Signed: Hong Hamilton MD at 15:00 EDT Tel , Service support ,
== END ==
PROVIDERS: PCP Internal Medicine; Referring Provider Podiatrist; Visit Provider Podiatrist
DX: M20.12 Hallux valgus (acquired), left foot (principal); M79.672 Pain in left foot
CPT/HCPCS: 73630

== ENCOUNTER → 2020-09-17 10:07 | Outpatient (CLI) | payer OTHER, SELFPAY ==
[2020-09-04 15:59] VITALS: BMI 25.1
[2020-09-17 12:05] LABS: T4 Free Direct 0.96 ng/dL (0.76-1.46); Thyroid Stim Hormone (TSH) 1.89 uIU/mL (0.358-3.74)
== END ==
PROVIDERS: PCP Internal Medicine; Referring Provider Podiatrist; Visit Provider Podiatrist
DX: E55.9 Vitamin D deficiency, unspecified (principal)
CPT/HCPCS: 36415; 82306; 84439; 84443

== ENCOUNTER → 2020-09-23 07:33 | Outpatient (CLI) | payer OTHER, SELFPAY ==
[2020-07-25 07:19] VITALS: BMI 25.0
[2020-09-04 15:59] VITALS: BMI 25.1
--- NOTE | 2020-09-23 07:37 | RAD_ITS ---
STUDY: X-RAY - LEFT FOOT CLINICAL: Female, 40 years old. HALLUS VALGUS TECHNIQUE: 3 view(s) of the foot. COMPARISON: 09/02/2020 FINDINGS: Since the previous study, the pin traversing the proximal and distal phalanx of the fifth toe has been removed. There is persistent hardware in the first metatarsal, medial cuneiform, intermediate cuneiform and fifth metatarsal. The hardware is intact and free of complication. Normal talus, calcaneus, and tarsal bones. Normal visualized subtalar, talonavicular, calcaneocuboid, tarsal and tarsometatarsal articulations. Normal second third and fourth metatarsals. The first and fifth metatarsals show stable postsurgical change. Normal metatarsophalangeal joint of the great toe. Normal tibial and fibular sesamoid bones. Normal interphalangeal joint of the great toe. Normal phalanges of the great toe. Normal second through fifth metatarsophalangeal joints. Normal interphalangeal joints and phalanges of the lesser toes. The soft tissue structures are unremarkable. RAD/Foot min 3 Views IMPRESSION: Stable postsurgical changes in the foot, no acute findings or significant interval change Electronically Signed: Rolando Vivas MD at 11:33 EDT , Service support ,
== END ==
PROVIDERS: PCP Internal Medicine; Referring Provider Podiatrist; Visit Provider Podiatrist
DX: M20.12 Hallux valgus (acquired), left foot (principal)
CPT/HCPCS: 73630

== ENCOUNTER → 2020-09-23 15:28 | Outpatient (CLI) | payer OTHER, SELFPAY ==
[2019-08-13 15:40] VITALS: BMI 24.7
[2020-09-04 15:59] VITALS: BMI 25.1
--- NOTE | 2020-09-23 15:29 | BI_ITS ---
MAMMOGRAPHY - BILATERAL SCREENING REASON FOR EXAM: Female, 40 years old. Routine annual screening examination. PERTINENT HISTORY: Aunt with breast cancer. TECHNIQUE: Digital bilateral breast sydney (3D mammographic acquisition) in the CC and MLO projections. 2-D mediolateral oblique (MLO) and craniocaudad (CC) views of both breasts were obtained. CAD: Full Field Digital Mammography with Computer Added Detection was performed. COMPARISON: Comparison is made with prior study dated 08/27/2019 and 04/22/2017. FINDINGS: Breast Composition: The breasts are heterogeneously dense, which may obscure small masses. There are no dominant masses or suspicious calcifications. No other significant abnormalities are identified. There has been no significant change since the prior study. BI/SCRN MAMM (CAD)W/SYDNEY BILAT IMPRESSION: Stable bilateral screening mammogram. Yearly follow-up mammogram recommended. (A) ASSESSMENT CATEGORY: BIRADS Category 1: Negative. A letter regarding these results will be sent to the patient by the facility within 30 days. Approximately 10% of breast cancers are not detected by mammography. A normal mammogram should not delay biopsy of a clinically suspicious abnormality. [id number] Electronically Signed: Alden Garcia MD at 8:06 EDT , Service support ,
== END ==
PROVIDERS: PCP Internal Medicine; Referring Provider Nurse Practitioner Women's Health; Visit Provider Nurse Practitioner Women's Health
DX: Z12.31 Encounter for screening mammogram for malignant neoplasm of breast (principal); Z80.3 Family history of malignant neoplasm of breast
CPT/HCPCS: 77063; 77067

== ENCOUNTER → 2020-10-29 14:18 | Outpatient (CLI) | payer OTHER, SELFPAY ==
[2020-10-02 15:44] VITALS: BMI 25.1
--- NOTE | 2020-10-29 14:24 | RAD_ITS ---
STUDY: X-RAY - LEFT FOOT CLINICAL: Female, 40 years old. POST OP TECHNIQUE: 3 view(s) of the foot. COMPARISON: 09/23/2020 FINDINGS: Normal talus, calcaneus, and tarsal bones. Status post first metatarsophalangeal joint arthrodesis with a medial plate and multiple screws. Healed fracture of the shaft of the fifth metatarsal bone after internal fixation with a wire. Normal metatarsophalangeal joint of the great toe. Normal tibial and fibular sesamoid bones. Normal interphalangeal joint of the great toe. Normal phalanges of the great toe. Normal second through fifth metatarsophalangeal joints. Normal interphalangeal joints and phalanges of the lesser toes. The soft tissue structures are unremarkable. RAD/Foot min 3 Views IMPRESSION: Healed fracture the midshaft of the fifth metatarsal bone after internal fixation with a wire. Electronically Signed: Kristopher Kumar MD at 7:54 EDT Tel , Service support ,
== END ==
PROVIDERS: PCP Internal Medicine; Referring Provider Podiatrist; Visit Provider Podiatrist
DX: Z98.890 Other specified postprocedural states (principal)
CPT/HCPCS: 73630

== ENCOUNTER 2020-12-01 18:12 | Emergency (ER) | payer OTHER, SELFPAY ==
[2020-11-26 15:56] VITALS: BMI 25.1
[2020-12-01 18:12] VITALS: BP 134/81; PULSE 64; RESP 18; TEMP 37; O2SAT 98; BMI 25.5
--- NOTE | 2020-12-01 19:03 | RAD_ITS ---
STUDY: X-RAY - RIGHT FOOT CLINICAL: Female, 40 years old. R ANKLE PAIN, FOOT WAS NUMB FROM SITTING ON IT AND PT STOOD FOOT WENT UNDER AND FELT A POP. TECHNIQUE: 3 view(s) of the foot. COMPARISON: None. FINDINGS: Normal talus, calcaneus, and tarsal bones. Normal visualized subtalar, talonavicular, calcaneocuboid, tarsal and tarsometatarsal articulations. There is degenerative narrowing of the first metatarsal bone sesamoid articulations. Prior first and fifth metatarsal head neck osteotomy defects. No visualized acute fracture. Normal second through fifth metatarsophalangeal joints. Normal interphalangeal joints and phalanges of the lesser toes. The soft tissue structures are unremarkable. RAD/Foot min 3 Views IMPRESSION: No acute process Electronically Signed: Getachew Gooden MD at 19:51 EDT , Service support ,
--- NOTE | 2020-12-01 19:07 | RAD_ITS ---
STUDY: X-RAY - RIGHT ANKLE REASON FOR EXAM: Female, 40 years old. R ANKLE PAIN, FOOT WAS NUMB FROM SITTING ON IT AND PT STOOD FOOT WENT UNDER AND FELT A POP. TECHNIQUE: 3 view(s) of the ankle. COMPARISON: None. FINDINGS: Normal visualized distal tibia and fibula. Normal medial and lateral malleoli. Normal tibiotalar articulation and ankle mortise. Normal visualized talus and calcaneus. A small plantar calcaneal spur is present. The visualized subtalar, talonavicular, calcaneocuboid and tarsal articulations are normal. There is no demonstrated fracture. The soft tissue structures are unremarkable. RAD/Ankle min 3 Views IMPRESSION: 1. No acute process Electronically Signed: Getachew Gooden MD at 19:47 EDT , Service support ,
--- NOTE | 2020-12-01 20:42 | EDS_ITS ---
HPI History of Present Illness HPI Narrative: Patient presents with a right foot and ankle injury that occurred today. Patient states she was sitting with her legs crossed and her right foot went numb. Patient states she then stood up and inverted her right ankle. Patient denies any other injuries. Patient states her pain is sharp. Patient states her pain is worse with movement and weightbearing. Patient states her pain is localized to the lateral aspect of the right midfoot. Patient denies any paresthesias or weakness. Chief Complaint: Lower Extremity Injury Informant: patient Onset/Context/Timing Onset: Today Context: Sudden Onset Timing: Continuous Quality of Pain: Sharp Location: Right ankle Worsened by: Movement, weightbearing Relieved by: Nothing Associated Symptoms Associated Symptoms: Negative for Parasthesia and Weakness PFSH [facility] Medical History Condyloma Constipation Frequent UTI HPV test positive HSV (herpes simplex virus) infection Hypertension IBS (irritable bowel syndrome) Insomnia Migraines Preventative health care Shingles Home Medications lisinopril 20 mg-hydrochlorothiazide 25 mg tablet 1 tab PO DAILY 02/12/19 [History Last Taken 07/24/20] multivitamin,[id number] 1 tab PO DAILY 02/12/19 [History Last Taken 07/24/20] cranberry 500 mg PO DAILY 02/26/19 [History Last Taken 07/24/20] docusate sodium 50 mg capsule 50 mg PO DAILY 09/04/20 [History Last Taken Unknown] Allergy/AdvReac Type Severity Reaction Status Date / Time hydromorphone [From Dilaudid] Allergy Rash Verified 11/26/20 15:54 chlorhexidine AdvReac Intermediate rash Verified 11/26/20 15:54 CHLORAPREP Allergy Hives Uncoded 07/18/20 13:53 Family History Other Anxiety Arthritis Breast cancer Depression Diabetes Heart disease Hyperlipemia Hypertension Surgical History History of bunionectomy of both great toes History of [facility] Social History Smoking Status: Never smoker alcohol intake: current alcohol intake frequency: a few times a week Alcohol type: wine details: social substance use type: does not use caffeine: Yes what type of physical activity do you participate in: walking seatbelt use: always do you feel safe at home: Yes additional social history: [employer]- [employer]. Patient works at [employer] ROS ROS ED Constitutional Constitutional ED: Denies chills or fever(s) Eyes Eyes: Denies blurry vision or change in vision ENT ENT ED: Denies rhinorrhea or sore throat Cardiovascular Cardiovascular: Denies chest pain or palpitations Respiratory/Chest Respiratory/Chest: Denies cough or dyspnea Gastrointestinal Gastrointestinal: Denies nausea or vomiting Genitourinary Genitourinary ED: Denies dysuria or hematuria Musculoskeletal Musculoskeletal: Denies back pain or neck pain Integumentary Denies abscess or rash Neurologic Neurologic: Denies headache(s) or weakness Allergic/Immunologic Allergic/Immunologic ED: Denies mouth swelling or urticaria EXAM Physical Exam Const Vital Signs: 12/01/20 18:12 Temperature 98.6 F Temperature Source Temporal Pulse Rate 64 Respiratory Rate 18 Blood Pressure 134/81 H Blood Pressure Mean 98 Pulse Ox 98 Oxygen Delivery Method Room Air Positive well nourished and well developed General Appearance ED: well developed HEENT normocephalic and atraumatic Neck full ROM Extremity Extremity Narrative: There is tenderness with mild edema and ecchymosis over the lateral aspect of the right ankle. There is no tenderness over the fifth metatarsal. There is no tenderness over the proximal fibula. Range of motion was limited somewhat in all motions of the right ankle secondary to pain. Pedal pulses are equal bilaterally. Capillary refill was less than 2 seconds in all digits. Sensation was intact to light touch in all digits. Neuro oriented x3, CN's II-XII intact bilaterally, moves all extremities and no sensory deficits noted Sensorium / Orientation: alert Psych mental status grossly normal MDM MDM MDM Narrative Medical decision making narrative: X-rays of the right ankle were obtained. There are 3 views. On my interpretation, there is no acute fracture. There is no dislocation. There is no soft tissue swelling. Radiologist also interpreted the x-rays and agrees. Patient states she has a walking boot at home from her prior bunion surgery. Patient states she also has crutches at home. Patient was instructed to use these. Patient was instructed to follow-up with Dr. Salazar in 5 to 7 days. Patient was instructed to ice and elevate the right ankle. Patient was instructed to take Tylenol or ibuprofen as needed for pain. Patient understood and was agreeable with the plan. All questions were answered. Radiography Diagnostic Testing: Radiology Impression Foot X-Ray 12/01/20 19:03 IMPRESSION: No acute process Electronically Signed: Getachew Gooden MD at 19:51 EDT , Service support , Ankle X-Ray 12/01/20 19:07 IMPRESSION: 1. No acute process Electronically Signed: Getachew Gooden MD at 19:47 EDT , Service support , Discharge Plan Triage Chief Complaint: Lower Extremity Injury ED Provider: [facility] Dx/Rx/DC Orders Clinical Impression: Right ankle sprain Instructions: ED Ankle Sprain (Adult) Prescriptions: No Action lisinopril-hydrochlorothiazide 20-25 mg tablet 1 tab PO DAILY RF: 0 Complete Multivitamin Tablet 1 tab PO DAILY RF: 0 docusate sodium 50 mg capsule 50 mg PO DAILY RF: 0 cranberry 500 MG capsule 500 mg PO DAILY RF: 0 Primary Care Provider: Johnnie Elliott Referrals: Johnnie Elliott MD [Primary Care Provider] - Edmund Salazar DPM [STAFF PHYSICIAN] - 5-7 Days Disposition Disposition: Home, Self Care
[2020-12-01 20:54] VITALS: RESP 16
== END 2020-12-01 20:54 | disposition home or self-care (01) ==
PROVIDERS: Emergency Provider Emergency Medicine; PCP Internal Medicine
DX: S93.401A Sprain of unspecified ligament of right ankle, initial encounter (principal); X50.1XXA Overexertion from prolonged static or awkward postures, initial encounter; Y92.9 Unspecified place or not applicable; Y99.9 Unspecified external cause status; I10 Essential (primary) hypertension
CPT/HCPCS: 73610; 73630; 99282

== ENCOUNTER → 2021-01-22 10:34 | Outpatient (CLI) | payer OTHER, SELFPAY ==
[2021-01-22 10:41] LABS: Mucous, Urine 0 SEEN /hpf (<or=2+)
[2021-01-22 10:45] LABS: Color, Urine Yellow (Yellow); Glucose, Dipstick Normal (Normal); Ketone-Dipstick Negative (Negative); Leukocyte Esterase-Dipstick 100 /ul (Negative); Nitrite-Dipstick Negative (Negative); Occult Blood-Urine 10 /ul (Negative); Protein-Dipstick Negative (Negative); Urine Bilirubin Dipstick Negative (Negative); Urine Clarity Sl. Cloudy (Clear); Urine Urobilinogen Normal (Normal); Urine pH 6.5 (5.0 - 8.0)
[2021-01-22 11:01] LABS: Bacteria 1+ /hpf (None Seen); Red Blood Cells-Urine 0-5 SEEN /hpf (0-5); Squamous Epithelial Cells - UA 0-5 SEEN /hpf (5-10); White Blood Cells 10-25 SEEN /hpf (0-5)
== END ==
PROVIDERS: PCP Internal Medicine; Referring Provider Physician Assistant; Visit Provider Physician Assistant
DX: N39.0 Urinary tract infection, site not specified (principal)
CPT/HCPCS: 81001; 87077; 87086; 87088; 87186

== ENCOUNTER → 2021-01-26 15:57 | Outpatient (CLI) | payer OTHER, SELFPAY ==
--- NOTE | 2021-01-26 15:59 | RAD_ITS ---
STUDY: X-RAY - LEFT FOOT CLINICAL: Female, 40 years old. PAIN TECHNIQUE: 3 view(s) of the foot. COMPARISON: 12/01/2020. FINDINGS: Intact medial and lateral surgical fixation hardware. Uncomplicated fifth proximal interphalangeal joint arthroplasty. Partially nonunited fifth metatarsal fracture. Tiny plantar spur. Dorsal spurring. Joint space narrowing predominating at the midfoot and first metatarsophalangeal joint. No acute fracture. No acute dislocation. No acute bone destruction. Mild diffuse soft tissue swelling. RAD/Foot min 3 Views IMPRESSION: Intact medial and lateral surgical fixation hardware Partially nonunited fifth metatarsal fracture Degenerative changes predominating at the midfoot and first MTP joint Mild diffuse soft tissue swelling Electronically Signed: Pelon Velázquez DO at 10:41 EDT Tel , Service support ,
== END ==
PROVIDERS: PCP Internal Medicine; Referring Provider Podiatrist; Visit Provider Podiatrist
DX: S92.352A Displaced fracture of fifth metatarsal bone, left foot, initial encounter for closed fracture (principal); M19.072 Primary osteoarthritis, left ankle and foot
CPT/HCPCS: 73630

== ENCOUNTER 2021-02-20 06:34 | Day surgery (SDC) | payer OTHER, SELFPAY ==
[2021-02-20 06:59] VITALS: BP 109/73; PULSE 60; RESP 18; TEMP 37.2; O2SAT 100; BMI 26.5
[2021-02-20] MEDS: Lactated Ringers 1,000 ML 100 ML IV (07:11)
[2021-02-20] MEDS: Cefazolin 2 GM in 0.9% Normal Saline 100 ML IV (07:30)
--- NOTE | 2021-02-20 07:30 | RAD_ITS ---
STUDY: X-RAY - LEFT FOOT CLINICAL: Removal of orthopedic pin from fifth metatarsal. TECHNIQUE: 3 intraoperative images of the foot. COMPARISON: Radiographs 01/26/2021. FINDINGS: There is fracture deformity of the fifth metatarsal, removal of the longitudinal orthopedic pin from the fifth metatarsal, and a remaining small transverse orthopedic pin fragment in the mid diaphysis. 7 seconds of fluoroscopy time was used. Electronically Signed: Hong Hamilton MD at 12:13 EDT Tel , Service support , RAD/Foot min 3 Views
[2021-02-20] MEDS: Lidocaine 1% /Epi 1:100 (50ml) 50 ML VIAL (07:45)
--- NOTE | 2021-02-20 08:21 | PCM.DC ---
Discharge Instructions Diet Discharge Diet: Light diet - advance as tolerated Activity Weight Bearing Status: Weight bearing as tolerated Keep extremity elevated above heart level: Left Leg Additional Activity Instructions:: Elevate left foot as much as possible. Dressing / Incision Call your doctor if your incision/area has: Continuous Slow Oozing, Sudden Increased Bleeding and Foul Smelling Discharge Call your doctor if you observe: Fever of 101 or Higher, Shortness of breath, Chest pain, Increased palpitations (irregular heartbeat), Calf discomfort and Uncontrolled pain Change Dressing in: 3 days (Remove left foot bandage in 3 days - keep clean, dry and intact until then. In 3 days, remove dressing, cleanse site with normal soap and water but no soaking foot. Apply betadine solution to incision/suture site and cover with gauze dressing. Change daily.) Follow Up Care Please Follow Up With: Edmund Salazar DPM When: 1 week, sooner if needed. Test Results: Test results from this visit will be discussed in further detail at your follow-up appointment, if applicable. Discharge Plan Admission Attending Provider: Edmund Salazar Primary Care Provider: Johnnie Elliott Discharge Orders/Prescriptions Prescriptions: New povidone-iodine [Betadine] 10 % solution 1 applic topical DAILY Qty: 237 RF: 0 No Action Complete Multivitamin Tablet 1 tab PO DAILY RF: 0 docusate sodium 50 mg capsule 50 mg PO DAILY RF: 0 lisinopril-hydrochlorothiazide 20-25 mg tablet 1 tab PO DAILY Qty: 90 RF: 3 buspirone 5 mg tablet 5 mg PO BID Qty: 60 RF: 1 cephalexin 250 mg capsule 250 mg PO QHS PRN (Reason: UTI) Qty: 90 RF: 2 cranberry 500 MG capsule 500 mg PO DAILY RF: 0 Referrals / Follow Up: Johnnie Elliott MD [Primary Care Provider] - Disposition Disposition (needs filled in before D/C Order can be placed): Home, Self Care
--- NOTE | 2021-02-20 08:26 | OP.PCM_ITS ---
Report of Operation Date of Procedure: 02/20/21 Pre-Operative Diagnosis: Symptomatic hardware left 5th metatarsal Post-Operative Diagnosis: Same Surgery/Procedure Performed:: Removal of kwire from left 5th metatarsal Surgeon: Edmund Salazar database administration associate: Dr. Bishop Type of Anesthesia: Local Specimen's removed: None Estimated Blood Loss (mL): 1mL Description of Procedure: Indications: This is a 40 year old female with history of 5th metatarsal osteotomy for tailor's bunion on the left foot with kwire fixation.The site is healed however there is retrained symptomatic kwire present which has slightly migrated into the 5th metatarsal phalangeal joint. This was causing some pain and also some limited 5th toe range of motion at the level of the 5th metatasal phalangeal joint. We discussed the options and she has opted for removal of this kwire (longitudinal kwire) from the 5th metatarsal. This was discussed with her in detail. Reviewed the possible benefits vs risks, goals, expectations and estimated healing time. She expressed understanding and agreement. The consent forms were reviewed with her and she freely signed them. Operative Procedure: She was brought back to the operating room and was place onto the operating room table in the supine position. A well padded tourniquet was applied to the left ankle but was not inflated. She received 2 grams of IV Cefazolin for antibiotic prophylaxis. A time was out also preformed and the patient was properly identified and the surgical plan was confirmed. The patient received local anesthesia after the skin was cleansed with 70% isopropyl alcohol in which a total of 6mL of 1% Lidocaine with 1:100,000 epi was given as a 5th ray block on the left foot. The left foot was cleansed, prepped, draped in the usual aseptic fashion. A small linear longitudinal skin incision was made overlying the dorsal 5th metatarsal phalangeal joint at same site of the previous incision. Careful dissection was completed down to the joint and the capsule was incised. The capsule was carefully partially reflected and the tip of the kwire was visible. The end of the kwire was obtained using a needle clamp truck driver and the kwire was removed without incident. The 5th metatarsal phalangeal joint was visualized and noted to be health and viable, there was no intra articular bone fragments. There was noted to be good smooth range of motion to the 5th metatarsal phalangeal joint with no grinding, crepitus or clicking. There was improved 5th metatarsal phalangeal joint . The site was flushed out with copious amounts of normal saline solution. The remaining tissue was healthy and viable, the 5th metatarsal phalangeal joint was put through range of motion and it was gliding smoothy, with no popping, clicking or crepitus present with improved 5th metatarsal phalangeal joint range of motion. Proper removal of kwire was confirmed using intraoperative fluoroscopy - images were saved. The site was healthy and viable. The site was flushed with copious amounts of normal saline solution. The skin was reapproximated using 3-0 Nylon. All bleeding was well controlled. There was noted to be normal temperature and perfusion to all toes on the foot. A dressing was applied which consisted of Betadine soaked Adaptic, 4x4 gauze, Kerlix and an Chava bandage. All vital structures, including all vital neurovascular structures were properly identified and protected/retracted as needed. The patient tolerated the procedure well and the anesthesia well with no complications. She was transported from the operating room to the recovery room with vital signs stable and in good conditions. Post operative orders were obtained. She was discharged home with post operative instructions which were reviewed with her today. She is going to follow up with me next week, sooner if needed. Grafts/Implants Used: None Complications None
[2021-02-20 08:46] VITALS: BP 109/73; BP 122/84; PULSE 69; RESP 16; TEMP 37.3; O2SAT 98
== END 2021-02-20 09:14 | disposition home or self-care (01) ==
LOC: SDC 06:34 → AC 06:36
PROVIDERS: PCP Internal Medicine; Referring Provider Podiatrist; Visit Provider Podiatrist
PROC: (CPT 28110; principal; 2021-02-20 07:15)
DX: T85.848A Pain due to other internal prosthetic devices, implants and grafts, initial encounter (principal); Y83.8 Other surgical procedures as the cause of abnormal reaction of the patient, or of later complication, without mention of misadventure at the time of the procedure; M20.5X2 Other deformities of toe(s) (acquired), left foot; F32.9 Major depressive disorder, single episode, unspecified; F41.9 Anxiety disorder, unspecified; E55.9 Vitamin D deficiency, unspecified; I10 Essential (primary) hypertension
CPT/HCPCS: 01480; 28110; 73630; 76000; J7120; J2405

== ENCOUNTER → 2021-02-26 15:59 | Outpatient (CLI) | payer OTHER, SELFPAY ==
--- NOTE | 2021-02-26 16:01 | RAD_ITS ---
HISTORY: HALLUX VALGUS COMPARISON: December 01, 2020 FINDINGS: # of images incl. paperwork: 3 XR Foot Min 3 Views: 3 view weightbearing right foot SOFT TISSUES: No radiodense soft tissue foreign body. No abnormal soft tissue mineralization. OSSEOUS: Prior fifth metatarsal head osteotomy. Prior first metatarsal bunionectomy. No dislocation. First metatarsophalangeal angle approximately 25. First intermetatarsal angle approximately 9.5. No fracture or aggressive osseous lesion. Mild first metatarsophalangeal degenerative change. BONE MINERALIZATION: Unremarkable. RAD/Foot min 3 Views IMPRESSION: Prior bunionectomy and fifth metatarsal osteotomy with hallux valgus metatarsus primus varus. at 2256 Reported and signed by: Dilip Nowak MD Electronically Signed: Dilip Nowak MD at 22:54 EDT Tel , Service support ,
== END ==
PROVIDERS: PCP Internal Medicine; Referring Provider Podiatrist; Visit Provider Podiatrist
DX: M20.11 Hallux valgus (acquired), right foot (principal)
CPT/HCPCS: 73630

== ENCOUNTER 2021-03-06 05:54 | Day surgery (SDC) | payer OTHER, SELFPAY ==
[2021-02-18 08:22] LABS: Absolute Neutrophil Count 2.4 X10^3/uL (2.0-7.7); Basophil# 0.03 X10^3/uL; Basophil% 0.5 % (0-1); Eosinophil# 0.41 X10^3/uL; Eosinophils% 7.5 % (0-5); Hematocrit 43.1 % (37-47); Hemoglobin 14.5 g/dL (12.0-15.0); Lymphocyte % 36.6 % (19-41); Mean Corp Hgb Conc 33.6 g/dL (32-36); Mean Corpuscular Volume 92.3 fL (81-99); Mean Platelet Vol. 10.1 fl (6.2-12.0); Monocyte# 0.58 X10^3/uL; Monocyte% 10.6 % (0-10); NRBC Flagged by Analyzer 0 % (0-5); Neutrophil # 2.44 X10^3/uL (2.7-7.7); Neutrophil % 44.6 % (47-70); Platelet Count 240 K/mm3 (150-450); RBC Distribution Width CV 11.9 % (11.6-14.6); RBC Distribution Width SD 40.9 fl (35.1-43.9); Red Blood Count 4.67 M/mm3 (4.2-5.4); White Blood Count 5.5 K/mm3 (4.4-11.0)
[2021-02-18 08:53] LABS: AST(SGOT) 19 U/L (15-37); Alanine Aminotransfer ALT/SGPT 27 U/L (13-56); Albumin, Serum 3.5 g/dL (3.2-5.0); Alkaline Phosphatase 58 U/L (45-117); Anion Gap 3 (5-15); BUN 16 mg/dL (7-18); BUN/Creat Ratio 23.1 RATIO (10-20); Calcium,Total 8.5 mg/dL (8.5-10.1); Chloride 107 mmol/L (98-107); Creatinine, Serum 0.69 mg/dL (0.55-1.02); EST Glomerular Filtration Rate 98 mL/min (>60); Est Glom Filt Rate - Afr Amer 119 mL/min (>60); Globulin 3.4 g/dL (2.2-4.2); Glucose 84 mg/dL (74-106); Protein, Total 6.9 g/dL (6.4-8.2); Sodium Level 137 mmol/L (136-145); Vitamin D,25 Hydroxy 39.4 ng/mL
[2021-03-06] VITALS (7 sets, daily range): BP systolic 104–129; BP diastolic 67–95; PULSE 64–80; RESP 12–18; TEMP 36.1–36.6; O2SAT 96–100; BMI 26.1
[2021-03-06] MEDS: Lactated Ringers 1,000 ML 100 ML IV ×2 (06:25→08:45)
[2021-03-06] MEDS: Cefazolin 2 GM in 0.9% Normal Saline 100 ML IV (07:21)
--- NOTE | 2021-03-06 07:21 | PCM.DC ---
Discharge Instructions Diet Discharge Diet: Light diet - advance as tolerated Activity Discharge Activity: May Not Drive Weight Bearing Status: No weight bearing (No weightbearing right foot) Keep extremity elevated above heart level: Right Leg (Keep right foot elevated with pillows for at least 50 minutes of every hour) Dressing / Incision Call your doctor if your incision/area has: Continuous Slow Oozing, Sudden Increased Bleeding and Foul Smelling Discharge Call your doctor if you observe: Fever of 101 or Higher, Shortness of breath, Chest pain, Calf discomfort and Uncontrolled pain Change Dressing in: leave in place till F/U Remove Dressing in: leave in place till F/U Cleanse incision/area with: Do not get Incision Wet Follow Up Care Please Follow Up With: Edmund Salazar DPM When: next week, sooner if needed. Please contact Dr. Salazar at [phone] or through [facility] at [phone] Test Results: Test results from this visit will be discussed in further detail at your follow-up appointment, if applicable. Discharge Plan Admission Attending Provider: Edmund Salazar Primary Care Provider: Johnnie Elliott Discharge Orders/Prescriptions Prescriptions: New oxycodone-acetaminophen [Percocet] 5-325 mg tablet 1 tab PO Q6H PRN (Reason: pain) 3 Days Qty: 20 RF: 0 ibuprofen 400 mg tablet 400 mg PO Q6H PRN (Reason: pain) Qty: 30 RF: 0 amoxicillin-pot clavulanate [Augmentin] 500-125 mg tablet 1 tab PO Q8H Qty: 14 RF: 0 Discontinued cephalexin 250 mg capsule 250 mg PO QHS PRN (Reason: UTI) Qty: 90 RF: 2 No Action Complete Multivitamin Tablet 1 tab PO DAILY RF: 0 docusate sodium 50 mg capsule 50 mg PO DAILY RF: 0 lisinopril-hydrochlorothiazide 20-25 mg tablet 1 tab PO DAILY Qty: 90 RF: 3 buspirone 5 mg tablet 5 mg PO BID Qty: 60 RF: 1 cranberry 500 MG capsule 500 mg PO DAILY RF: 0 Disposition Discharge Orders: Discharge Patient (Routine); Ordered 03/06/21 Ordered By: Dr. Edmund Salazar
--- NOTE | 2021-03-06 07:30 | RAD_ITS ---
STUDY: X-RAY - RIGHT FOOT CLINICAL: Female, 40 years old. Digital documentation views of tarsometatarsal fusion. TECHNIQUE: 18 digital documentation to view(s) of the foot. COMPARISON: 02/26/2021. FINDINGS: 18 digital documentation views of the tarsometatarsal fusion were obtained. Malleable plate and screw fusion at the first tarsometatarsal joint and fusion at the Lisfranc joint. The soft tissue structures are unremarkable. RAD/Foot 2 Views IMPRESSION: Intraoperative digital documentation views as described. Electronically Signed: Mark Johnson MD at 11:59 EDT , Service support ,
--- NOTE | 2021-03-06 07:30 | BON_PTH ---
PATIENT: RAMANDEEP SNOW LOC: [place] U#:[id number] AGE/SX: 40/F ROOM: RE03/06/[address]: Dr. Edmund Salazar DPM : 1980 BED: DIS: 03/06/2021 SPEC #: [id number] RECD: 03/06/21 13:46 STATUS: BHARATHI REEaston #: [id number] MAGGI: 03/06/21 07:[address]: Edmund Salazar DEPT: SURGICAL PATHOLOGY RECD BY: Valery Wong ENTERED: 03/09/21 09:20 SP TYPE: Bone OTHR DR: Dr. Johnnie Elliott MD Tissues: Bone of foot, NOS Procedures: Decalcification bone/plaque Surgery Specimen Level III HEADER OPERATION: First metatarsal cuneiform fusion bunionectomy PRE-OP DIAGNOSIS: Partial hallux valgus bunion TISSUE SUBMITTED: Bone from first metatarsal MICROSCOPIC DIAGNOSIS Bone from first metatarsal, bunionectomy: Fragments of bone with reactive changes, clinically hallux valgus bunion. NAINA:roel 03/12/2021 MICROSCOPIC DESCRIPTION Slides are reviewed. GROSS DESCRIPTION Received in fixative is one container labeled with the patient's name and designated bone from first metatarsal. The specimen consists of multiple fragments of tirado-white bone that in aggregate measure 2 x 0.5 x 0.2 cm. The specimen is totally submitted in one cassette after decalcification. / AM:roel 03/09/21 TC:5 CPT: 97824, [id number]
[2021-03-06] MEDS: Bupivacaine Mpf 0.5% 30 ML VIAL (10:05)
--- NOTE | 2021-03-06 10:17 | RAD_ITS ---
STUDY: X-RAY - RIGHT FOOT CLINICAL: Female, 40 years old. Postoperative evaluation TECHNIQUE: 3 view(s) of the foot. COMPARISON: 03/06/2021. FINDINGS: Stable first cuneiform-first metatarsal fusion with malleable plates and screws. Postsurgical changes of hallux valgus repair unchanged. 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 The soft tissue structures are unremarkable. RAD/Foot min 3 Views IMPRESSION: Stable uncomplicated first tarsometatarsal fusion. Electronically Signed: Mark Johnson MD at 11:28 EDT , Service support ,
--- NOTE | 2021-03-06 10:18 | OP.PCM_ITS ---
Report of Operation Date of Procedure: 03/06/21 Pre-Operative Diagnosis: Hallux valgus bunion, right foot Post-Operative Diagnosis: Same Surgery/Procedure Performed:: 1st tarsometatarsal lapidus bunionectomy right foot Surgeon: Edmund Salazar land surveying party chief: Dr. Serrano Type of Anesthesia: General and Local Specimen's removed: Cartilage/Bone from 1st tarsometatarsal joint, right sent to pathology Estimated Blood Loss (mL): 10mL Description of Procedure: Indications: This is a 40 year old female with chronic right hallux valgus bunion despite nonsurgical treatment, and previous surgery (simple bunionectomy in 2017). She has difficulty walking and doing daily activities due to the pain. Patient has clinical hallux valgus bunion with 1st ray hypermobility, increased 1st IM angle, increased HAA as well. She had a lot of pain due to 1st and 2nd toes rubbing together. She has great difficulty with shoes. She had left 1st tarosmetatarsal joint lapidus bunionectomy on left foot last winter and she is very happy and pleased with it. We discussed the condition and treatment options on right foot. From surgical standpoint we discussed all of the options, but she elected to proceed with 1st tarsometatarsal Lapidus arthrodesis bunionectomy. Reviewed the procedures, possible benefits vs risks, goals, expectations, and estimated healing time. Generally speaking advised that post operatively he will need to be nonweightbearing for at least 3-4 weeks, then 3-4 weeks in a walking immobilizing boot, possibly longer, advised it may take 12 months or more for maximal healing. She expressed understanding and agreement. No guarantees were given nor implied. No warranties were given. Patient freely signed the consent forms and elected to proceed forward with the procedure. Operative procedure: The patient was brought back into the operating room and was placed on the operating room table in the supine position. Patient was carefully secured to the operating room table with a safety belt around patient's waist. A timeout was performed and the patient was properly identified and the surgical plan was confirmed. The patient did received 2g of intravenous Cefazolin for antibiotic prophylaxis. The patient received general anesthesia per the anesthesia team. A well padded pneumatic tourniquet was applied around the right ankle. The right foot was scrubbed, prepped and draped in the usual aseptic fashion. Of note patient was asked multiple times prior to the operative procedure about her allergies, and she relates she is not allergic to Betadine/povidone iodine. Further attention was directed to the right foot. There was noted to be significant hallux valgus bunion with 1st toe deviated into the 2nd toe, and sitting on the top of the 2nd toe, the hallux was laterally deviated, there was significant hypermobility of the 1st ray. A total of 10mL of 0.5% Bupivacaine plain was given as a local nerve block around the 1st ray on the right foot. Right 1st tarsometatarsal Lapidus arthrodesis bunionectomy: A linear longitudinal skin incision was medially along the medial 1st metatarsal cuneiform joint. This was done using a 15 blade. Careful dissection was completed down to the capsule of the 1st metatarsal cuneiform joint, and it was incised using a 15 blade and partially reflected exposing the joint surfaces. The tibialis anterior tendon was kept intact on the 1st cuneiform. All cartilage from the 1st metatarsal cuneiform joint surfaces (posterior aspect of the base of the 1st metatarsal and the anterior aspect of the 1st cuneiform) were debrided away and was removed down to bleeding bone. This was done with a curette as well as a powered rasp, being sure not to cause osteonecrosis. The site was flushed out with copious amounts of normal saline solution. The surfaces were fenestrated using a powered drill to aid fusion, and also an osteotome and mallet. The 1st metatarsal was reduced into normal position using a tenaculum from the 1st and 2nd metatarsals distally. The site was fixated use rigid open reduction internal fixation, using 1 Arthrex cannulated 3.5mm FT compression screw as well as 1 Arthrex plantar plate, using a total of 4 locking screws, and 1 partially threaded screw across the fusion site. There was very good compression and bone to bone contact with the prepped fusion site, in good alignment.The fusion site was rigid and very stable. This was checked and confirmed with intraoperative fluoroscopy. There was noted to be some intercuneiform instability and the proximal locking screw did go across the 1st and 2nd cuneiform joint for intercuneiform stability. This was all done using rigid open reduction internal fixation technique. There was excellent stability present. There was also noted to be significant contracture of the lateral 1st metatarsal phalangeal joint as well as very tight and contracted the adductor hallucis tendon which was causing continued lateral deviation of the 1st toe into the 2nd toe. Therefore a skin incision was overlying the dorsal lateral 1st metatarsal phalangeal joint. Dissection was completed down to the lateral capsule of the 1st MTPJ and adductor hallucis tendon which were released using a 15 blade. The hallux was now in rectus and excellent position. There was was now normal range of motion to the 1st metatarsal phalangeal joint. There was smooth normal gliding range of motion of the 1st metatarsal phalangeal joint at this time with normal alignment. The joint was in good alignment. The surgical site was flushed out with copious amounts of normal saline solution. Tissues were healthy and viable at this time. The subcutaneous tissue layers were reapproximated using 2-0 Vicryl, 3-0 Vicryl and the skin was reapproximated using 4-0 Monocryl and 3- 0 Nylon. Cavailon was painted to the edges of the sutured skin incision and steristrips were applied across the sutured skin incision. An additional 14 mL of 0.5% Bupivacaine plain was given as a local nerve block around the 1st ray to help with post op pain control. During the above procedure the pneumatic tourniquet inflated for hemostasis, and was deflated after 97 minutes, was down for 6 minutes, and was reinflated for an additional 3 minutes (total tourniquet time was 100 minutes), and there was immediate return of warmth and perfusion to the foot each time it was deflated, including to all 5 toes. CFT < 2 seconds to all toes. There was hemostasis achieved prior to incision closure. A dressing was applied which consisted of adaptic, 4x4 gauze, Kerlix and atilio bandage. Of note all vital structures, including all vital neurovascular structures and tendon structures were properly identified, they were protected and retracted as necessary throughout the above procedures. The patient tolerated the above procedure well and the anesthesia well with no complications. The patient was transported from the operating room to the [facility] ry room with vital signs stable and in good condition. Post operative orders were placed, post operative xrays were obtained in the recovery room - these were reviewed, s/p 1st tarsometatarsal arthrodesis bunionectomy in good alignment with intact hardware, good alignment of the 1st MTPJ, and good bone to bone compression of the fusion site. Post operative orders were placed, post operative instructions were reviewed with the patient several times pre operatively (today and pre op visits in office) - no weightbearing right foot, keep foot elevated for at least 50 minutes of every hour, keep dressing clean, dry and intact, follow up with me within 1 week in office - sooner if needed. This was typed out and these written instructions were also reviewed with patient and given to patient to take home. Percocet 5/325mg PO q 6 hours as well as Ibuprofen 400mg PO q 6 hours was prescribed to help with post op pain control, also Augmentin 500/125mg PO q 12 hours was prescribed to help prevent i nfection as well. This was discussed with patient as well. OARRS was checked prior to prescribing percocet. She already has a surgical shoe to help keep the foot protected. With patient's consent I did review the above with patient's friend Inocencio. Also of note with patient's consent the sutures were removed from the 5th 5th incision site on the left foot after site was cleansed with 70% Isopropyl alcohol. The incision site is healed, no erythema, no drainage, no edema, no cardinal signs of infection, no evidence of complication. Steristrips were applied across the incision site which she will let fall off on their own. Grafts/Implants Used: 1 x Arthrex plantar lapidus plate and screws, FT compression screw Complications None
== END 2021-03-06 12:30 | disposition home or self-care (01) ==
LOC: SDC 05:54 → AC 05:54
PROVIDERS: PCP Internal Medicine; Referring Provider Podiatrist; Visit Provider Podiatrist
PROC: (CPT 28292; principal; 2021-03-06 07:15)
DX: M21.611 Bunion of right foot (principal); M20.11 Hallux valgus (acquired), right foot; I10 Essential (primary) hypertension; F41.9 Anxiety disorder, unspecified; F32.9 Major depressive disorder, single episode, unspecified; E55.9 Vitamin D deficiency, unspecified
CPT/HCPCS: 01480; 28297; 36415; 73620; 73630; 76000; 80053; 82306; 85025; 88304; 88311; C1713; J7120; J2405

== ENCOUNTER → 2021-03-31 12:47 | Outpatient (CLI) | payer OTHER, SELFPAY ==
--- NOTE | 2021-03-31 12:51 | RAD_ITS ---
STUDY: X-RAY - RIGHT FOOT CLINICAL: Female, 40 years old. HALLUX VALGUS FOOT TECHNIQUE: 3 view(s) of the foot. COMPARISON: 03/06/2021 FINDINGS: Stable first cuneiform-first metatarsal fusion with malleable plates and screws. Postsurgical changes of hallux valgus repair stable. Previous screw tracts in second metatarsal. Status post resection of lateral distal fifth metatarsal. 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 The soft tissue structures are unremarkable. RAD/Foot min 3 Views IMPRESSION: Stable operative changes. Electronically Signed: Fred Mathews MD (Brooks) at 16:54 EDT , Service support ,
== END ==
PROVIDERS: PCP Internal Medicine; Referring Provider Podiatrist; Visit Provider Podiatrist
DX: M20.11 Hallux valgus (acquired), right foot (principal)
CPT/HCPCS: 73630

== ENCOUNTER → 2021-04-24 12:05 | Outpatient (CLI) | payer OTHER, SELFPAY ==
--- NOTE | 2021-04-24 12:15 | RAD_ITS ---
STUDY: X-RAY - RIGHT FOOT CLINICAL: Female, 40 years old. Follow-up after ORIF for valgus foot. TECHNIQUE: 3 weight bearing view(s) of the foot. COMPARISON: 03/31/2021. FINDINGS: Stable first cuneiform-first metatarsal fusion with cancellus screws and malleable plate and screw fixation. No change in alignment. Stable inferior calcaneal spur. Stable mild osteoarthritic changes. The soft tissue structures are unremarkable. RAD/Foot min 3 Views IMPRESSION: Stable postsurgical changes with no complicating features. Electronically Signed: Mark Johnson MD at 12:46 EST , Service support ,
== END ==
PROVIDERS: PCP Internal Medicine; Visit Provider Podiatrist
DX: M20.11 Hallux valgus (acquired), right foot (principal)
CPT/HCPCS: 73630

== ENCOUNTER 2021-04-24 12:21 | Day surgery (SDC) | payer OTHER, SELFPAY ==
[2021-04-24 12:46] VITALS: BP 112/76; PULSE 64; RESP 18; TEMP 36.8; O2SAT 98; BMI 27.0
--- NOTE | 2021-04-24 14:07 | PCM.OPRPT ---
Report of Operation Date of Procedure: 04/24/21 Pre-Operative Diagnosis: Symptomatic hardware left 5th metatarsal Post-Operative Diagnosis: Same Surgery/Procedure Performed:: Removal of kwire from left 5th metatarsal Surgeon: Edmund Salazar advance scout: Type of Anesthesia: Local Specimen's removed: None Estimated Blood Loss (mL): <1mL Description of Procedure: Indications: This is a 40 year old female with history of 5th metatarsal osteotomy for tailor's bunion on the left foot with kwire fixation.The site is healed however there is a retrained symptomatic kwire present to the 5th metatarsal shaft which has migrated dorsally causing pain. It is felt underneath the skin. There is pain with shoes and when touched. We discussed the options and she has opted for removal of this kwire (vertical kwire) from the 5th metatarsal. This was discussed with her in detail. Reviewed the possible benefits vs risks, goals, expectations and estimated healing time. She expressed understanding and agreement. The consent forms were reviewed with her and she freely signed them. Operative Procedure: She was brought back to the operating room and was place onto the operating room table in the supine position. A time was out also preformed and the patient was properly identified and the surgical plan was confirmed. The patient received local anesthesia after the skin was cleansed with 70% isopropyl alcohol in which a total of 2mL of 1% Lidocaine with 1:100,000 epi was given over the dorsal aspect of the kwire site of the 5th metatarsal shaft on the left foot. The left foot was cleansed, prepped, draped in the usual aseptic fashion. A small linear longitudinal skin incision was made overlying the kwire of the 5th metatarsal shaft at same site of the previous incision. Careful dissection was completed down to the kwire, it was just right underneath the skin. The end of the kwire was obtained using a hemostat and it was easily removed without incident. The site was flushed out with copious amounts of normal saline solution. The remaining tissues were noted to be healthy and viable, the 5th metatarsal osteotomy site was healed. Removal of kwire was confirmed using intraoperative fluoroscopy - image was saved. The site was flushed with copious amounts of normal saline solution. The skin was reapproximated using 3-0 Nylon. All bleeding was well controlled. There was noted to be normal temperature and perfusion to all toes on the foot. A dressing was applied which consisted of Betadine soaked Adaptic, gauze and tegaderm. All vital structures, including all vital neurovascular structures were properly identified and protected/retracted as needed. The patient tolerated the procedure well and the anesthesia well with no complications. She was transported from the operating room to the recovery room with vital signs stable and in good conditions. Post operative orders were obtained. She was discharged home with post operative instructions which were reviewed with her today - she is going to change the dressing daily - cleanse using antibacterial soap, apply betadine and gauze dressing daily. She is going to follow up with me next week, sooner if needed. Grafts/Implants Used: None Complications None
[2021-04-24] MEDS: Lidocaine 1% /Epi 1:100 (20ml) 20 ML Vial (14:11)
== END 2021-04-24 15:07 ==
LOC: SDC 12:21 → AC 12:22
PROVIDERS: PCP Internal Medicine; Visit Provider Podiatrist
PROC: (CPT 28110; principal; 2021-04-24 13:45)
DX: T84.84XA Pain due to internal orthopedic prosthetic devices, implants and grafts, initial encounter (principal); M79.672 Pain in left foot; M20.11 Hallux valgus (acquired), right foot
CPT/HCPCS: 28110; 76000; A4216

== ENCOUNTER → 2021-05-07 10:06 | Outpatient (CLI) | payer OTHER, SELFPAY ==
--- NOTE | 2021-05-07 | LES_PTH ---
PATIENT: RAMANDEEP SNOW LOC: [facility] U#:[id number] AGE/SX: 44/F ROOM: RE05/07/[address]: Dr. Ko Lazo MD : 1980 BED: DIS: SPEC #: [id number] RECD: 05/07/21 12:27 STATUS: BHARATHI DEYA #: [id number] MAGGI: 05/07/21 00:[address]: Ko Lazo DEPT: SURGICAL PATHOLOGY RECD BY: Yuri Blue ENTERED: 05/07/21 12:27 SP TYPE: Lesion OTHR DR: Dr. Johnnie Elliott MD Tissues: A - Skin of breast, NOS B - Skin of axilla, NOS Procedures: Surgery Specimen Level IV HEADER OPERATION: Shave removal PRE-OP DIAGNOSIS: Irritated nevus TISSUE SUBMITTED: A ? Right lateral breast 9-10 o?clock region, B ? Left axillary vault MICROSCOPIC DIAGNOSIS A. Right lateral breast, 9-10 o?clock region, shave biopsy: Intradermal nevus, appears to be completely excised in the planes of sections examined. B. Left axillary vault lesion, shave biopsy: Intradermal nevus, appears to be completely excised in the planes of sections examined. NAINA:roel 05/08/2021 COMMENT Clinical correlation and appropriate follow up are necessary. MICROSCOPIC DESCRIPTION Slides are reviewed. GROSS DESCRIPTION A - Received in fixative is one container labeled with the patient's name and designated right lateral breast 9-10 o'clock. The specimen consists of a shave biopsy of tirado-white skin measuring 0.5 x 0.2 x 0.1 cm. The specimen is totally submitted in one cassette. B - Received in fixative is one container labeled with the patient's name and designated left axillary vault. The specimen consists of a piece of tirado-white skin measuring 0.2 x 0.1 x 0.1 cm. The specimen is totally submitted in one cassette. / NAINA:roel 05/07/21 TC:1 CPT: 42123 x2
== END ==
PROVIDERS: PCP Internal Medicine; Visit Provider Dermatology
DX: D48.5 Neoplasm of uncertain behavior of skin (principal)
CPT/HCPCS: 88305

== ENCOUNTER 2021-08-10 14:34 | Outpatient (CLI) | payer OTHER, SELFPAY ==
[2021-08-10 15:21] LABS: Absolute Neutrophil Count 3.9 X10^3/uL (2.0-7.7); Basophil# 0.07 X10^3/uL; Basophil% 0.9 % (0-1); Eosinophil# 0.08 X10^3/uL; Eosinophils% 1.1 % (0-5); Hematocrit 44.8 % (37-47); Hemoglobin 15.6 g/dL (12.0-15.0); Lymphocyte % 37.6 % (19-41); Mean Corp Hgb Conc 34.8 g/dL (32-36); Mean Corpuscular Hgb 31.8 pg (27.0-32.0); Mean Corpuscular Volume 91.2 fL (81-99); Monocyte# 0.53 X10^3/uL; Monocyte% 7.1 % (0-10); NRBC Flagged by Analyzer 0 % (0-5); Neutrophil # 3.94 X10^3/uL (2.7-7.7); Platelet Count 320 K/mm3 (150-450); RBC Distribution Width CV 11.9 % (11.6-14.6); RBC Distribution Width SD 39.8 fl (35.1-43.9); Red Blood Count 4.91 M/mm3 (4.2-5.4); White Blood Count 7.4 K/mm3 (4.4-11.0)
[2021-08-10 16:05] LABS: ALB/GLOB Ratio 1.2 RATIO (0.9-2.4); AST(SGOT) 17 U/L (15-37); Alanine Aminotransfer ALT/SGPT 34 U/L (13-56); Albumin, Serum 4.2 g/dL (3.2-5.0); Alkaline Phosphatase 66 U/L (45-117); Anion Gap 5 (5-15); BUN 17 mg/dL (7-18); BUN/Creat Ratio 22.3 RATIO (10-20); Calcium,Total 8.9 mg/dL (8.5-10.1); Chloride 103 mmol/L (98-107); Creatinine, Serum 0.76 mg/dL (0.55-1.02); EST Glomerular Filtration Rate 88 mL/min (>60); Est Glom Filt Rate - Afr Amer 107 mL/min (>60); Globulin 3.5 g/dL (2.2-4.2); Glucose 93 mg/dL (74-106); Potassium 4.1 mmol/L (3.5-5.1); Protein, Total 7.7 g/dL (6.4-8.2); Rheumatoid Factor < 10.0 IU/mL (<15); Sodium Level 136 mmol/L (136-145); Thyroid Stim Hormone (TSH) 2.53 uIU/mL (0.358-3.74)
[2021-08-12 13:17] LABS: ANTINUCLEAR ANTIBODIES DIRECT Negative (Negative)
== END 2021-08-10 23:59 | disposition home or self-care (01) ==
LOC: BIMLAB 14:35
PROVIDERS: PCP Internal Medicine; Referring Provider Internal Medicine; Visit Provider Internal Medicine
DX: Z13.29 Encounter for screening for other suspected endocrine disorder (principal); M19.90 Unspecified osteoarthritis, unspecified site; R53.82 Chronic fatigue, unspecified
CPT/HCPCS: 36415; 80053; 84443; 85025; 86038; 86225; 86235; 86431

== ENCOUNTER → 2021-09-28 | Outpatient (CLI) | payer OTHER, SELFPAY ==
--- NOTE | 2021-09-28 15:01 | BI_ITS ---
MAMMOGRAPHY - BILATERAL SCREENING 3-D TOMOSYNTHESIS REASON FOR EXAM: Female, 41 years old. screening PERTINENT HISTORY: No significant family history. TECHNIQUE: 2-D mammograms and 3-D Tomosynthesis of the breast (s) were performed. CAD was performed. COMPARISON: 09/23/2020 FINDINGS: The breast composition is heterogeneously dense that can obscure small breast masses. Scattered benign calcifications are seen. No dense spiculated masses or suspicious microcalcifications are identified. No architectural distortion is identified. There is no skin thickening or retraction. There has been no significant change since the prior study. BI/SCRN MAMM (CAD)W/SYDNEY BILAT IMPRESSION: No mammographic signs of malignancy. Routine yearly mammograms recommended. ASSESSMENT CATEGORY: BIRADS Category 1: Negative. A letter regarding these results will be sent to the patient by the facility within 30 days. FOLLOW UP RECOMMENDATION: Yearly follow up mammogram recommended. (A) Approximately 10% of breast cancers are not detected by mammography. A normal mammogram should not delay biopsy of a clinically suspicious abnormality. Electronically Signed: Kristopher Kumar MD at 16:02 EDT ,
== END | disposition home or self-care (01) ==
LOC: OPBI 15:00
PROVIDERS: PCP Internal Medicine; Visit Provider Nurse Practitioner Women's Health
DX: Z12.31 Encounter for screening mammogram for malignant neoplasm of breast (principal)
CPT/HCPCS: 77063; 77067

== ENCOUNTER → 2021-12-15 | Outpatient (CLI) | payer OTHER, SELFPAY | END | disposition home or self-care (01) | LOC: MTLAB 15:20 → MTRAD 15:22 | PROVIDERS: PCP Internal Medicine; Referring Provider Chiropractor; Visit Provider Chiropractor | DX: M54.9 Dorsalgia, unspecified (principal); M99.03 Segmental and somatic dysfunction of lumbar region | CPT/HCPCS: 72110 ==

== ENCOUNTER → 2022-02-11 | Outpatient (CLI) | payer OTHER, SELFPAY ==
[2022-02-11 08:13] LABS: Hemoglobin 14.1 g/dL (12.0-15.0); Mean Corp Hgb Conc 33.6 g/dL (32-36); Mean Corpuscular Hgb 31.5 pg (27.0-32.0); Mean Corpuscular Volume 93.8 fL (81-99); Mean Platelet Vol. 10.4 fl (6.2-12.0); Platelet Count 298 K/mm3 (150-450); RBC Distribution Width CV 12.2 % (11.6-14.6); RBC Distribution Width SD 42.4 fl (35.1-43.9); Red Blood Count 4.48 M/mm3 (4.2-5.4); White Blood Count 5.1 K/mm3 (4.4-11.0)
[2022-02-11 08:43] LABS: ALB/GLOB Ratio 1.1 RATIO (0.9-2.4); AST(SGOT) 18 U/L (15-37); Alanine Aminotransfer ALT/SGPT 33 U/L (13-56); Albumin, Serum 3.6 g/dL (3.2-5.0); Alkaline Phosphatase 59 U/L (45-117); Anion Gap 8 (5-15); BUN 27 mg/dL (7-18); Calcium,Total 8.8 mg/dL (8.5-10.1); Chloride 105 mmol/L (98-107); Creatinine, Serum 0.73 mg/dL (0.55-1.02); EST Glomerular Filtration Rate 92 mL/min (>60); Est Glom Filt Rate - Afr Amer 112 mL/min (>60); Ferritin 66 ng/mL (8-252); Globulin 3.4 g/dL (2.2-4.2); Glucose 92 mg/dL (74-106); Potassium 4.1 mmol/L (3.5-5.1); Sodium Level 138 mmol/L (136-145)
[2022-02-11 08:44] LABS: Vitamin D,25 Hydroxy 28.3 ng/mL
== END | disposition home or self-care (01) ==
LOC: LAB 07:27
PROVIDERS: PCP Internal Medicine; Referring Provider Internal Medicine; Visit Provider Internal Medicine
DX: G25.81 Restless legs syndrome (principal); Z79.899 Other long term (current) drug therapy; E55.9 Vitamin D deficiency, unspecified; I10 Essential (primary) hypertension
CPT/HCPCS: 36415; 80053; 82306; 82728; 85027

== ENCOUNTER → 2022-03-29 | Outpatient (CLI) | payer OTHER, SELFPAY | END | disposition home or self-care (01) | LOC: SL 20:07 | PROVIDERS: PCP Internal Medicine; Referring Provider Internal Medicine; Visit Provider Internal Medicine | DX: G25.81 Restless legs syndrome (principal); I10 Essential (primary) hypertension; R40.0 Somnolence | CPT/HCPCS: 95810 ==

== ENCOUNTER → 2022-04-20 | Outpatient (CLI) | payer OTHER, SELFPAY ==
--- NOTE | 2022-04-20 09:20 | RAD_ITS ---
STUDY: X-RAY - RIGHT FOOT CLINICAL: Female, 41 years old. Right foot pain. History of ORIF of right foot. TECHNIQUE: 3 view(s) of the foot. COMPARISON: April 24, 2020 FINDINGS: Stable first cuneiform-first metatarsal fusion with cancellus screws and malleable plate and screw fixation. No change in alignment. Stable inferior calcaneal spur. Stable mild osteoarthritic changes. The soft tissue structures are unremarkable. RAD/Foot min 3 Views IMPRESSION: Stable postsurgical changes with no complicating features. Electronically Signed: Mark Johnson, at 10:36 EST ,
== END | disposition home or self-care (01) ==
LOC: RAD 09:15
PROVIDERS: PCP Internal Medicine; Referring Provider Podiatrist; Visit Provider Podiatrist
DX: M79.671 Pain in right foot (principal)
CPT/HCPCS: 73630

== ENCOUNTER → 2022-06-10 | Outpatient (CLI) | payer OTHER, SELFPAY ==
[2022-06-10 08:44] LABS: Hematocrit 43.5 % (37-47); Hemoglobin 14.9 g/dL (12.0-15.0); Mean Corp Hgb Conc 34.3 g/dL (32-36); Mean Corpuscular Volume 90.4 fL (81-99); Mean Platelet Vol. 9.9 fl (6.2-12.0); Platelet Count 331 K/mm3 (150-450); RBC Distribution Width CV 12.5 % (11.6-14.6); RBC Distribution Width SD 41.9 fl (35.1-43.9); Red Blood Count 4.81 M/mm3 (4.2-5.4); White Blood Count 7.4 K/mm3 (4.4-11.0)
[2022-06-10 09:15] LABS: Vitamin D,25 Hydroxy 64.8 ng/mL
[2022-06-10 09:17] LABS: ALB/GLOB Ratio 1.1 RATIO (0.9-2.4); AST(SGOT) 17 U/L (15-37); Alanine Aminotransfer ALT/SGPT 36 U/L (13-56); Albumin, Serum 3.8 g/dL (3.2-5.0); Alkaline Phosphatase 70 U/L (45-117); Anion Gap 7 (5-15); BUN 26 mg/dL (7-18); BUN/Creat Ratio 34.4 RATIO (10-20); Calcium,Total 8.9 mg/dL (8.5-10.1); Chloride 101 mmol/L (98-107); Creatinine, Serum 0.76 mg/dL (0.55-1.02); EST Glomerular Filtration Rate 89 mL/min (>60); Est Glom Filt Rate - Afr Amer 107 mL/min (>60); Globulin 3.6 g/dL (2.2-4.2); Glucose 91 mg/dL (74-106); Magnesium 2.2 mg/dL (1.6-2.6); Potassium 3.5 mmol/L (3.5-5.1); Protein, Total 7.4 g/dL (6.4-8.2); Sodium Level 136 mmol/L (136-145)
== END | disposition home or self-care (01) ==
PROVIDERS: PCP Internal Medicine; Referring Provider Internal Medicine; Visit Provider Internal Medicine
DX: I10 Essential (primary) hypertension (principal); Z79.899 Other long term (current) drug therapy; E55.9 Vitamin D deficiency, unspecified
CPT/HCPCS: 36415; 80053; 82306; 83735; 85027

== ENCOUNTER → 2022-06-17 | Outpatient (CLI) | payer OTHER, SELFPAY ==
--- NOTE | 2022-06-17 08:31 | RAD_ITS ---
INDICATION: HALLUX VALGUS EXAMINATION/TECHNIQUE: X-RAY - LEFT XR Foot Min 3 Views COMPARISON: None. FINDINGS: 3 views of the left foot were obtained. Postsurgical changes include medial cuneiform-first metatarsal fusion with cancellus screws and malleable plate-screw fixation. Old trauma and postsurgical changes in the fifth digit. No acute fracture. Small plantar calcaneal spur. No hallux valgus deformity. RAD/Foot min 3 Views IMPRESSION: Postsurgical changes. No acute fracture. Pending Final Proof Editing
== END | disposition home or self-care (01) ==
LOC: RAD 08:29
PROVIDERS: PCP Internal Medicine; Visit Provider Podiatrist
DX: M20.10 Hallux valgus (acquired), unspecified foot (principal); M77.30 Calcaneal spur, unspecified foot
CPT/HCPCS: 73630

== ENCOUNTER → 2022-08-09 | Outpatient (CLI) | payer OTHER, SELFPAY ==
[2022-08-09 13:14] LABS: Estradiol 67.5 pg/mL; Follicle Stimulating Hormone 7.7 mIU/mL; T4 Free Direct 0.89 ng/dL (0.76-1.46); Thyroid Stim Hormone (TSH) 1.94 uIU/mL (0.358-3.74)
[2022-08-16 22:27] LABS: Testosterone Free 4.4 pg/mL (0.0-4.2)
[2022-08-18 08:15] LABS: 17-Hydroxyprogesterone 20 ng/dL (.)
== END | disposition home or self-care (01) ==
LOC: LAB 10:06
PROVIDERS: PCP Internal Medicine; Referring Provider Registered Nurse; Visit Provider Registered Nurse
DX: R53.83 Other fatigue (principal)
CPT/HCPCS: 36415; 82533; 82670; 83001; 83036; 83498; 84402; 84439; 84443

== ENCOUNTER → 2022-09-29 | Outpatient (CLI) | payer OTHER, SELFPAY ==
--- NOTE | 2022-09-29 07:16 | BI_ITS ---
MAMMOGRAPHY - BILATERAL SCREENING REASON FOR EXAM: Female, 42 years old. Routine annual screening examination. PERTINENT HISTORY: Non-contributory. TECHNIQUE: Digital bilateral breast [place] (3D mammographic acquisition) in the CC and MLO projections. 2-D mediolateral oblique (MLO) and craniocaudad (CC) views of both breasts were obtained. CAD: Full Field Digital Mammography with Computer Added Detection was performed. COMPARISON: Comparison is made with prior study dated September 28, 2021 and September 23, 2020. FINDINGS: Breast Composition: The breasts are heterogeneously dense, which may obscure small masses. There are no dominant masses or suspicious calcifications. Stable small benign-appearing bilateral axillary lymph nodes. No other significant abnormalities are identified. There has been no significant change since the prior study. BI/SCRN MAMM (CAD)W/SYDNEY BILAT IMPRESSION: Stable bilateral screening mammogram. Yearly follow-up mammogram recommended. (A) ASSESSMENT CATEGORY: BIRADS Category 2: Benign. A letter regarding these results will be sent to the patient by the facility within 30 days. Approximately 10% of breast cancers are not detected by mammography. A normal mammogram should not delay biopsy of a clinically suspicious abnormality. [id number] Electronically Signed: Alden Garcia MD at 8:15 EDT ,
== END | disposition home or self-care (01) ==
LOC: OPBI 07:12
PROVIDERS: PCP Internal Medicine; Referring Provider Registered Nurse; Visit Provider Registered Nurse
DX: Z12.31 Encounter for screening mammogram for malignant neoplasm of breast (principal)
CPT/HCPCS: 77063; 77067

== ENCOUNTER 2022-10-19 07:26 | Outpatient (RCR) | payer OTHER, SELFPAY | END 2022-11-03 23:59 | LOC: NS 07:26 | PROVIDERS: PCP Internal Medicine; Referring Provider Obstetrics & Gynecology; Visit Provider Obstetrics & Gynecology | DX: Z71.3 Dietary counseling and surveillance (principal); E66.9 Obesity, unspecified; E28.2 Polycystic ovarian syndrome; Z68.31 Body mass index [BMI] 31.0-31.9, adult | CPT/HCPCS: 97802 ==

== ENCOUNTER → 2022-10-19 | Outpatient (CLI) | payer OTHER, SELFPAY ==
[2022-10-19 09:53] LABS: Cholesterol 215 mg/dL (200); High Density Lipoprotein 76 mg/dL; Triglycerides 99 mg/dL; Very Low Density Lipoprotein 20 mg/dL (5-40)
--- NOTE | 2022-10-19 12:33 | EKG12_ITS ---
Test Reason : ROUTINE Blood Pressure : / mmHG Vent. Rate : 065 BPM Atrial Rate : 065 BPM P-R Int : 182 ms QRS Dur : 070 ms QT Int : 400 ms P-R-T Axes : 073 059 071 degrees QTc Int : 416 ms Normal sinus rhythm Normal ECG Confirmed by CHARLOTTE DELEON, RUSSELL ([id number]), features editor MARGARITO BLAKE ([id number]) on 10/20/2022 8:35:32 AM Referred By: Hilda Gallego Confirmed By:RUSSELL PORTER MD
--- NOTE | 2022-10-19 12:54 | US_ITS ---
STUDY: ULTRASOUND OF THE FEMALE PELVIS - COMPLETE REASON FOR EXAM: Female, 42 years old. PCOS LMP: Patient is status post hysterectomy. TECHNIQUE: Transabdominal and Transvaginal TECHNICAL QUALITY: Adequate. COMPARISON: Comparison is made with prior study dated February 14, 2019. FINDINGS: The patient is status post hysterectomy. The right ovary is visualized. The right ovary measures 3.1 cm x 2.9 cm x 2.3 cm. There is a 1.8 cm x 2.3 cm x 1.1 cm cyst. There is no visualized right adnexal mass or complex lesion. There is normal arterial and normal venous vascularity. The left ovary is visualized. The left ovary measures 2.3 cm x 1.4 cm x 2 cm. There is no left ovarian cyst or ovarian mass. There is no visualized left adnexal mass or complex lesion. There is normal arterial and normal venous vascularity. There is no fluid in the cul-de-sac. The pre void volume of the bladder was 468 ml. US/Pelvic w/ Transvaginal IMPRESSION: 1.8 cm x 2.3 cm x 1.1 cm right ovarian cyst. Status post hysterectomy. Electronically Signed: Alden Gacria MD at 14:08 EDT ,
== END | disposition home or self-care (01) ==
PROVIDERS: PCP Internal Medicine; Referring Provider Obstetrics & Gynecology; Visit Provider Obstetrics & Gynecology
DX: I10 Essential (primary) hypertension (principal); E28.2 Polycystic ovarian syndrome; Z13.220 Encounter for screening for lipoid disorders
CPT/HCPCS: 36415; 76830; 76856; 80061; 93005

== ENCOUNTER → 2023-03-23 | Outpatient (CLI) | payer OTHER, SELFPAY ==
[2023-03-23 09:23] LABS: Insulin 9.2 mU/L (2.6-37.6)
== END | disposition home or self-care (01) ==
PROVIDERS: PCP Internal Medicine; Referring Provider Internal Medicine; Visit Provider Internal Medicine
DX: Z00.00 Encounter for general adult medical examination without abnormal findings (principal); E78.5 Hyperlipidemia, unspecified; E28.2 Polycystic ovarian syndrome; K58.9 Irritable bowel syndrome, unspecified; I10 Essential (primary) hypertension; Z13.220 Encounter for screening for lipoid disorders; E88.818 Other insulin resistance
CPT/HCPCS: 36415; 83525

== ENCOUNTER → 2023-06-13 | Outpatient (CLI) | payer OTHER, SELFPAY ==
--- NOTE | 2023-06-13 09:47 | RAD_ITS ---
STUDY: X-RAY - LUMBAR SPINE REASON FOR EXAM: Female, 42 years old. Low back pain. TECHNIQUE: 2 view(s) of the lumbar spine were obtained. COMPARISON: December 15, 2021 FINDINGS: Normal lumbar lordosis. There is no substantial scoliosis. There is a normal alignment of the vertebrae. Normal vertebral bodies and endplates. Normal disc space heights. Phleboliths. RAD/Lumbar Spine 2 or 3 Views IMPRESSION: No interval change. Normal lumbar spine. Electronically Signed: Mark Johnson MD at 10:37 EST ,
--- NOTE | 2023-06-13 09:47 | RAD_ITS ---
STUDY: X-RAY - CERVICAL SPINE REASON FOR EXAM: Female, 42 years old. Neck pain. Headache. TECHNIQUE: 3 view(s) of the cervical spine were obtained on 5 images. COMPARISON: None FINDINGS: Normal anterior atlantoaxial articulation. Normal odontoid process. Normal cervical lordosis. Diffuse mild uncovertebral and facet sclerosis. 2 mm of anterolisthesis of C6 on C7. Intervertebral disc space narrowing at C5-6, C6-7 and C7-T1. Normal soft tissues. RAD/Cerv Spine 2 or 3 Views IMPRESSION: Mild lower cervical spondylosis as described. No acute abnormality or erosive changes. Electronically Signed: Mark Johnson MD at 10:36 EST ,
== END | disposition home or self-care (01) ==
PROVIDERS: PCP Internal Medicine; Referring Provider Internal Medicine; Visit Provider Internal Medicine
DX: M54.2 Cervicalgia (principal); M54.50 Low back pain, unspecified
CPT/HCPCS: 72040; 72100

== ENCOUNTER → 2023-06-29 | Outpatient (CLI) | payer OTHER, SELFPAY ==
--- NOTE | 2023-06-29 | SKTAG_PTH ---
PATHOLOGY RESULTS PATIENT: RAMANDEEP SNOW LOC: [facility] U#:[id number] AGE/SX: 42/F ROOM: RE06/29/[address]: Dr. Ko Lazo MD : 1980 BED: DIS: 06/29/2023 SPEC #: [id number] RECD: 06/29/23 12:37 STATUS: BHARATHI DEYA #: [id number] MAGGI: 06/29/23 00:[address]: Ko Lazo DEPT: SURGICAL PATHOLOGY RECD BY: Suzanne Green ENTERED: 06/29/23 12:38 SP TYPE: SKIN TAG OTHR DR: Dr. Winifred Pedro MD Tissues: Skin of back, NOS Skin of back, NOS Procedures: Surgery Specimen Level IV HEADER OPERATION: Shave removal PRE-OP DIAGNOSIS: Inflamed pigmented papule with hemorrhagic crusting; irritated nevus vs other TISSUE SUBMITTED: A - Left superior upper back, B - Left superior upper back MICROSCOPIC DIAGNOSIS A. Skin lesion left superior upper back, shave biopsy: Intradermal nevus. B. Skin lesion left superior upper back, shave biopsy: Intradermal nevus. AM:roel 06/30/2023 MICROSCOPIC DESCRIPTION Slides are reviewed. GROSS DESCRIPTION A - Received in fixative is one container labeled with the patient's name and designated left superior upper back. The specimen consists of a shave biopsy of light brown skin measuring 0.5 x 0.4 x 0.1 cm. The specimen is inked, bisected and submitted entirely in one cassette. B - Received in fixative is one container labeled with the patient's name and designated left superior upper back. The specimen consists of a shave biopsy of light brown skin measuring 0.5 x 0.5 x 0.1 cm. The specimen is inked, bisected and submitted entirely in one cassette. / NAINA:roel 06/29/2023 TC:5 CPT: 16326 x2
--- OUTSIDE RECORDS SUMMARY | 2023-06-29 10:54 | XMS RPT_ITS | CCD ---
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 Machine Catcher Name Role Phone Stewart Escobedo MD Primary Care Provider STEWART ESCOBEDO Attending Unavailable STEWART ESCOBEDO Primary Care Unavailable TAMI BUCIO Referring Unavailable STEWART ESCOBEDO Attending Unavailable STEWART ESCOBEDO Primary Care Unavailable TAMI BUCIO Referring Unavailable STEWART ESCOBEDO Primary Care Unavailable TAMI BUCIO Referring Unavailable TAMI BUCIO Attending Unavailable BARI MATSON Primary Care Unavailable TAMI BUCIO Attending Unavailable Allergies Allergy Classification Reported Allergen(s) Allergy Type Date of Onset Reaction(s) Facility (11 sources) Chlorhexidine; Translations: [CHLORHEXIDINE] Drug Allergy 07-24-2019 Rash [facility] Work Phone: (6 sources) HYDROmorphone; Translations: [HYDROMORPHONE] Drug Allergy 01-16-2022 Hives [facility] Work Phone: (1 source) buPROPion Drug Allergy 05-26-2022 Other: See Comments [facility] Work Phone: Medications Current Medications Medication Drug Class(es) Dates Sig (Normalized) Sig (Original) B-complex with vitamin C (SUPER B COMPLEX-VITAMIN C ORAL) (4 sources) End: 10-06-2021 B-complex with vitamin C (SUPER B COMPLEX-VITAMIN C ORAL) Take by mouth. 0 10/06/2021 Discontinued Completed/Discontinued Medications Medication Drug Class(es) Dates Sig (Normalized) Sig (Original) 24 hr buPROPion hydrochloride 150 mg extended release oral tablet (1 source) Aminoketone Start: 10-16-2021 End: 01-16-2022 take 1 tablet by mouth once daily buPROPion XL (WELLBUTRIN XL) 150 mg 24 hr tablet Take 1 tablet by mouth once daily. 30 tablet 11 10/16/2021 01/16/2022 Discontinued (Adverse Reaction) Problems Problem Classification Problem Date Documented Da te Episodic/Chronic Anxiety disorders (3 sources) Mixed anxiety and depressive disorder; Translations: [Anxiety disorder, unspecified] Chronic Coma; stupor; and brain damage (1 source) Daytime somnolence; Translations: [Somnolence] Episodic Esophageal disorders (2 sources) Laryngopharyngeal reflux; Translations: [Gastro-esophageal reflux disease without esophagitis] Chronic Essential hypertension (3 sources) Hypertensive disorder; Translations: [Essential (primary) hypertension] Chronic Immunizations and screening for infectious disease (7 sources) Patient encounter status; Translations: [Encounter for screening for human immunodeficiency virus [HIV]] Episodic Malaise and fatigue (2 sources) Fatigue; Translations: [Other fatigue] Episodic Miscellaneous mental health disorders (2 sources) Binge eating disorder; Translations: [Binge eating disorder] Chronic Mood disorders (11 sources) Depressive disorder; Translations: [Other specified depressive episodes] Onset: 8 07-07-2007 Chronic Nutritional deficiencies (3 sources) Vitamin D deficiency; Translations: [Vitamin D deficiency, unspecified] Chronic Other gastrointestinal disorders (1 source) Constipation; Translations: [Constipation, unspecified] Episodic Other gastrointestinal disorders (1 source) Chronic constipation; Translations: [Other constipation] Episodic Other hereditary and degenerative nervous system conditions (1 source) Restless legs; Translations: [Restless legs syndrome] Chronic Other nutritional; endocrine; and metabolic disorders (1 source) Weight gain; Translations: [Abnormal weight gain] Episodic Residual codes; unclassified (1 source) Insomnia; Translations: [Insomnia, unspecified] Episodic Results Test Name Value Interpretation Reference Range Facil ity Vital Signs Date Time Vital Sign Value Performing Clinician Monique arboleda 04-27-2022 13:26-0500 Body weight 72.12 kg Stewart Escobedo MD Work Phone: [facility] 04-27-2022 13:26-0500 Diastolic blood pressure 72 mm[Hg] Stewart Escobedo MD Work Phone: [facility] 04-27-2022 13:26-0500 Heart rate 54 /min Stewart Escobedo MD Work Phone: [facility] 04-27-2022 13:26-0500 SaO2% (BldA) [Mass fraction] 99 % Stewart Escobedo MD Work Phone: [facility] 04-27-2022 13:26-0500 Systolic blood pressure 122 mm[Hg] Stewart Escobedo MD Work Phone: [facility] 01-16-2022 08:39-0400 Body temperature 97.11 [degF] Stewart Escobedo MD Work Phone: [facility] 01-16-2022 08:39-0400 Body weight 69.85 kg Stewart Escobedo MD Work Phone: [facility] 01-16-2022 08:39-0400 Diastolic blood pressure 72 mm[Hg] Stewart Escobedo MD Work Phone: [facility] 01-16-2022 08:39-0400 Heart rate 60 /min Stewart Escobedo MD Work Phone: [facility] 01-16-2022 08:39-0400 Respiratory rate 16 /min Stewart Escobedo MD Work Phone: [facility] 01-16-2022 08:39-0400 Systolic blood pressure 112 mm[Hg] Stewart Escobedo MD Work Phone: [facility] 10-06-2021 07:06-0400 Body height 156.2 cm Tami Bucio ASSOCIATE SALES MANAGER.WIRING TECHNICIAN Work Phone: [facility] 10-06-2021 07:06-0400 Body weight 65.77 kg Tami Bucio ASSOCIATE SALES MANAGER.WIRING TECHNICIAN Work Phone: [facility] 10-06-2021 07:06-0400 Diastolic blood pressure 70 mm[Hg] Tami Bucio ASSOCIATE SALES MANAGER.WIRING TECHNICIAN Work Phone: [facility] 10-06-2021 07:06-0400 Heart rate 64 /min Tami Bucio ASSOCIATE SALES MANAGER.WIRING TECHNICIAN Work Phone: [facility] 10-06-2021 07:06-0400 Respiratory rate 16 /min Tami Bucio ASSOCIATE SALES MANAGER.WIRING TECHNICIAN Work Phone: [facility] 10-06-2021 07:06-0400 Systolic blood pressure 110 mm[Hg] Tami Bucio ASSOCIATE SALES MANAGER.WIRING TECHNICIAN Work Phone: [facility] 09-04-2021 07:41-0400 Body height 156.8 cm Tami Bucio ASSOCIATE SALES MANAGER.WIRING TECHNICIAN Work Phone: [facility] 09-04-2021 07:41-0400 Body weight 65.32 kg Tami Bucio ASSOCIATE SALES MANAGER.WIRING TECHNICIAN Work Phone: [facility] 09-04-2021 07:41-0400 Diastolic blood pressure 74 mm[Hg] Tami Bucio ASSOCIATE SALES MANAGER.WIRING TECHNICIAN Work Phone: [facility] 09-04-2021 07:41-0400 Heart rate 60 /min Tami Bucio ASSOCIATE SALES MANAGER.WIRING TECHNICIAN Work Phone: [facility] 09-04-2021 07:41-0400 Respiratory rate 16 /min Tami Bucio ASSOCIATE SALES MANAGER.WIRING TECHNICIAN Work Phone: [facility] 09-04-2021 07:41-0400 Systolic blood pressure 110 mm[Hg] Tami Bucio ASSOCIATE SALES MANAGER.WIRING TECHNICIAN Work Phone: [facility] Encounters Encounter Date Encounter Type Care Provider Facility Start: 08-11-2022 ambulatory Stewart mccallum MD Work Phone: Internal Medicine [facility] Start: 04-27-2022 End: 04-27-2022 ambulatory STEWART ESCOBEDO Facility:[facility] Start: 04-27-2022 End: 04-27-2022 Office outpatient visit 25 minutes Stewart Escobedo MD Work Phone: Internal Medicine [place] Procedures Date Procedure Procedure Detail Performing Clinician Start: 02-10-2011 Mammography Tami lovett ASSOCIATE SALES MANAGER.WIRING TECHNICIAN Work Phone: Plan of Treatment Date Care Activity Detail Author Start: 04-27-2032 Urine microalbumin profile DTA P,TDAP,TD (4 - Td or Tdap) [facility] Start: 04-27-2023 ANNUAL PCP TEAM HOME HOUSEKEEPER CRISTÓBAL DISEASE VISIT ANNUAL PCP TEAM CHRONIC DISEASE VISIT [facility] Start: 04-27-2023 BP CONTROLLED (<130/80) BP CONTROLLE D (<130/80) [facility] Start: 04-27-2023 HEPATITIS B (1 of 3 - 3-dose series) HEPATITIS B (1 of 3 - 3-dose series) [facility] Immunizations Immunization Date Immunization Notes Care Provider Fa cility 04-27-2022 TD(adult) unspecifie d formulation Stewart Escobedo MD Work Phone: [facility] Work Phone: 04-27-2022 tetanus and diphther ia toxoids, adsorbed, preservative free, for adult use (5 Lf of tetanus toxoid and 2 Lf of diphtheria toxoid) Stewart Escobedo MD Work Phone: [facility] 03-03-2021 influenza, seasonal, injectable, preservative free Tami Bucio ASSOCIATE SALES MANAGER.WIRING TECHNICIAN Work Phone: [facility] Work Phone: 03-04-2020 influenza, seasonal, injectable, preservative free Tami Bucio ASSOCIATE SALES MANAGER.WIRING TECHNICIAN Work Phone: [facility] Work Phone: 03-27-2019 influenza, seasonal, injectable Tami Bucio ASSOCIATE SALES MANAGER.WIRING TECHNICIAN Work Phone: [facility] Work Phone: 03-20-2018 influenza, seasonal, injectable Tami Bucio ASSOCIATE SALES MANAGER.WIRING TECHNICIAN Work Phone: [facility] Work Phone: 03-02-2017 influenza, seasonal, injectable Tami Bucio ASSOCIATE SALES MANAGER.WIRING TECHNICIAN Work Phone: [facility] Work Phone: 03-04-2016 influenza, seasonal, injectable Tami Bucio ASSOCIATE SALES MANAGER.WIRING TECHNICIAN Work Phone: [facility] Work Phone: 03-06-2015 influenza, seasonal, injectable, preservative free Tami Bucio ASSOCIATE SALES MANAGER.WIRING TECHNICIAN Work Phone: [facility] Work Phone: 03-06-2014 influenza, seasonal, injectable Tami Bucio ASSOCIATE SALES MANAGER.WIRING TECHNICIAN Work Phone: [facility] Work Phone: 06-05-2013 influenza, seasonal, injectable, preservative free Tami Bucio ASSOCIATE SALES MANAGER.WIRING TECHNICIAN Work Phone: [facility] Work Phone: 09-04-2010 diphtheria, tetanus toxoids and acellular pertussis vaccine Tami Bucio ASSOCIATE SALES MANAGER.WIRING TECHNICIAN Work Phone: [facility] Work Phone: 08-31-2010 tetanus toxoid, redu elijah diphtheria toxoid, and acellular pertussis vaccine, adsorbed Tami Bucio ASSOCIATE SALES MANAGER.WIRING TECHNICIAN Work Phone: [facility] Work Phone: Payers Date Payer Category Payer Unknown MMO MMO TPA [id number] 2021-Present [address] [place] [address] PPO [id number] 2021 Unknown [id number] 2021 Unknown [id number] Social History Date Type Detail Facility Start: 01-16-2022 Tobacco smoking stat us MOIS Never smoked tobacco [facility] Start: 09-04-2021 End: 01-16-2022 Alcohol intake Current drinker of alcohol (finding) [facility] Start: 09-04-2021 History SDOH Alcohol Comment rare, on weekends [facility] Start: 1980 Sex Assigned At Female C [facility] Start: 08-25-2021 End: 04-27-2022 Exposure to SARS-CoV-2 (event) Not sure [facility] Work Phone: Start: 09-29-2021 History SDOH Alcohol Frequency 4 [facility] Start: 09-29-2021 End: 04-26-2022 History SDOH Alcohol Std Drinks 1 [facility] Start: 09-29-2021 End: 04-26-2022 History SDOH Alcohol Binge 2 [facility] Start: 09-29-2021 History SDOH Social Connections Living 7 [facility] Start: 09-29-2021 History SDOH Physica l Activity MPS 6 [facility] Start: 01-16-2022 Tobacco use and exposure Smoke less tobacco non-user [facility] Work Phone: Clinical Notes 09-04-2021 to 08-11-2022 Stewart Escobedo MD - 04/27/2022 1:14 PM ESTTelephone Encounter - Domenica Peña Ma - 04/07/2022 1:18 PM Karen Escobedo MD - 01/16/2022 8:40 AM EDT Note Date & Type Note Facility 08-11-2022 Note Patient Outreach (IN [facility]) RAMANDEEP SNOW ([id number]) 1980 F Date Time Provider Department 08/11/22 STEWART ESCOBEDO During your visit today, we recorded the following information about you: Allergies As of Date: 08/11/2022 Noted Allergy Reaction CHLORHEXIDINE 07/24/2019 2 - Rash DILAUDID (HYDROMORPHONE) 01/16/2022 4 - Hives WELLBUTRIN (BUPROPION) 05/26/2022 14 - Other: See Comments Comments: Constipation and dizziness Date Reviewed: 04/27/2022 Reviewed by: Domenica Peña Ma - Fully Assessed Visit Diagnosis:Encounter for screening mammogram for breast cancer [Z12.31] Order(s):[facility] SCREENING [[id number]] Order #: [id number] FUTURE Prescriptions as of 08/16/2022 - DULoxetine (CYMBALTA) 20 mg capsule Take 1 capsule by mouth once daily. - ferrous sulfate (FEOSOL) 325 mg (65 mg iron) tablet Take by mouth. Two times weekly - omeprazole (PRILOSEC) 20 mg capsule Take 1 capsule by mouth twice daily. 1/2 hr before meal. - Cholecalciferol, Vitamin D3, 125 mcg (5,000 unit) cap Take 1 capsule by mouth once daily. - lisinopril-hydroCHLOROthiazide (PRINZIDE, ZESTORETIC) 20-25 mg per tablet Take 1 tablet by mouth once daily. Problem List As Of Date 08/11/2022 Noted Resolved Persistent depressive disorder [F34.1] 07/07/2007 Encounter Status:Closed by [employer], [employer] on 08/16/22 [facility] 04-27-2022 Note HNO ID: [id number] Author: Stewart Escobedo MD Service: ? Author Type: Physician Type: Progress Notes Filed: 04/28/2022 12:27 PM Note Text: This note was created using ColorPlazariter. Subjective Ramandeep Snow is a 41 year old female. HISTORY Ramandeep Snow is a 41 year old lady here for follow up. Seen for follow up 01/16/22 after established with Tmai 10/06/21. Still with waking up a couple times a week with reflux and cough. Still struggling with depression. Wellbutrin--side effects with constipation and feeling jittery. Constipation a little worse lately. Runs in family. Gut can feel full. Never feels like completely emptied. Is drinking more fluids. Getting more dietary fiber. Passes small stools every other day, then maybe a formed stool after taking something then 1 BM per week. has not tried Miralax routinely. (Noted cousin on Roro) PSG--negative for BRANDEE. PAST MEDICAL HISTORY Diagnosis Date Anxiety and depression PMH - PAST MEDICAL HISTORY OF heart murmur as child Current Outpatient Medications Medication Sig omeprazole (PRILOSEC) 20 mg capsule Take 1 capsule by mouth daily before breakfast. 1/2 hr before meal. lisinopril-hydroCHLOROthiazide (PRINZIDE, ZESTORETIC) 20-25 mg per tablet Take 1 tablet by mouth once daily. Cholecalciferol, Vitamin D3, (VITAMIN D-3) 50 mcg (2,000 unit) cap Take by mouth. No current facility-administered medications for this visit. ALLERGIES Allergen Reactions Chlorhexidine Rash Dilaudid [Hydromorp* Hives PAST SURGICAL HISTORY Procedure Laterality Date HYSTERECTOMY HX Partial, h/o hpv FAMILY HISTORY Problem Relation Age of Onset Diabetes Mother Hypertension Mother Heart Father Breast Cancer Sister dx at age 29/half sister/same mother Social History Tobacco Use Smoking status: Never Smokeless tobacco: Never Substance Use Topics Alcohol use: Yes Comment: rare, on weekends Drug use: No Review of Systems Objective BP 122/72 Pulse (!) 54 Wt 72.1 kg (159 lb) LMP 01/11/2011 SpO2 99% BMI 29.56 kg/m? Physical Exam Constitutional: Appearance: Normal appearance. HENT: Head: Normocephalic. Eyes: Conjunctiva/sclera: Conjunctivae normal. Cardiovascular: Rate and Rhythm: Normal rate and regular rhythm. Heart sounds: Normal heart sounds. Pulmonary: Effort: Pulmonary effort is normal. Breath sounds: Normal breath sounds. Skin: General: Skin is warm and dry. Neurological: General: No focal deficit present. Mental Status: She is alert and oriented to person, place, and time. Psychiatric: Attention and Perception: Attention and perception normal. Mood and Affect: Mood and affect normal. Speech: Speech normal. Behavior: Behavior normal. Thought Content: Thought content normal. Cognition and Memory: Cognition and memory normal. Judgment: Judgment normal. Last labs reviewed Assessment and Plan Encounter Diagnosis ICD-10-CM 1. Hypertension, unspecified type I10 CBC COMP METABOLIC PANEL 2. LPRD (laryngopharyngeal reflux disease) K21.9 omeprazole (PRILOSEC) 20 mg capsule 3. Chronic constipation K59.09 4. Vitamin D deficiency E55.9 Cholecalciferol, Vitamin D3, 125 mcg (5,000 unit) cap VITAMIN D 25 HYDROXY 5. Encounter for long-term current use of medication Z79.899 CBC VITAMIN D 25 HYDROXY MAGNESIUM BLD COMP METABOLIC PANEL 6. Encounter for immunization Z23 TETANUS/DIPTHERIA BOOSTER (OVER 7), PF IM 7. Persistent depressive disorder F34.1 DULoxetine (CYMBALTA) 20 mg capsule Above issues addressed with patient. Patient involved in shared decision making for management of medical issues. Try Miralax more often and find routine dose that helps prevent constipation; Linzess can be considered if needed, but at this time, her constipation does not seem severe enough to need Linzess since Miralax can help get bowels moving. Increase PPI dose to control GERD at night. Further evaluation and treatment as indicated. History and medications reviewed. Epic updated as needed Refills and/or prescriptions taken care of and meds adjusted as indicated after reviewed history, exam and labs. Adjust meds as indicated. Health Maintenance reviewed. Updated record and/or ordered tests as recorded. Encouraged on efforts at healthy diet and regular exercise and adequate sleep. Titrate Cymbalta as needed. Discussed R/B/I/A. Further evaluation and treatment as indicated. Stewart Escobedo MD [facility] 04-27-2022 History of Presen t illness Narrative This note was created using [employer]. Subjective Ramandeep Snow is a 41 year old female. HISTORY Ramandeep Snow is a 41 year old lady here for follow up. Seen for follow up 01/16/22 after established with Tami 10/06/21. Still with waking up a couple times a week with reflux and cough. Still struggling with depression. Wellbutrin--side effects with constipation and feeling jittery. Constipation a little worse lately. Runs in family. Gut can feel full. Never feels like completely emptied. Is drinking more fluids. Getting more dietary fiber. Passes small stools every other day, then maybe a formed stool after taking something then 1 BM per week. has not tried Miralax routinely. (Noted cousin on Linzess) PSG--negative for BRANDEE. PAST MEDICAL HISTORY Diagnosis Date Anxiety and depression PMH - PAST MEDICAL HISTORY OF heart murmur as child Current Outpatient Medications Medication Sig omeprazole (PRILOSEC) 20 mg capsule Take 1 capsule by mouth daily before breakfast. 1/2 hr before meal. lisinopril-hydroCHLOROthiazide (PRINZIDE, ZESTORETIC) 20-25 mg per tablet Take 1 tablet by mouth once daily. Cholecalciferol, Vitamin D3, (VITAMIN D-3) 50 mcg (2,000 unit) cap Take by mouth. No current facility-administered medications for this visit. ALLERGIES Allergen Reactions Chlorhexidine Rash Dilaudid [Hydromorp* Hives PAST SURGICAL HISTORY Procedure Laterality Date HYSTERECTOMY HX Partial, h/o hpv FAMILY HISTORY Problem Relation Age of Onset Diabetes Mother Hypertension Mother Heart Father Breast Cancer Sister dx at age 29/half sister/same mother Social History Tobacco Use Smoking status: Never Smokeless tobacco: Never Substance Use Topics Alcohol use: Yes Comment: rare, on weekends Drug use: No Review of Systems Objective BP 122/72 Pulse (!) 54 Wt 72.1 kg (159 lb) LMP 01/11/2011 SpO2 99% BMI 29.56 kg/m Physical Exam Constitutional: Appearance: Normal appearance. HENT: Head: Normocephalic. Eyes: Conjunctiva/sclera: Conjunctivae normal. Cardiovascular: Rate and Rhythm: Normal rate and regular rhythm. Heart sounds: Normal heart sounds. Pulmonary: Effort: Pulmonary effort is normal. Breath sounds: Normal breath sounds. Skin: General: Skin is warm and dry. Neurological: General: No focal deficit present. Mental Status: She is alert and oriented to person, place, and time. Psychiatric: Attention and Perception: Attention and perception normal. Mood and Affect: Mood and affect normal. Speech: Speech normal. Behavior: Behavior normal. Thought Content: Thought content normal. Cognition and Memory: Cognition and memory normal. Judgment: Judgment normal. Last labs reviewed Assessment and Plan Encounter Diagnosis ICD-10-CM 1. Hypertension, unspecified type I10 CBC COMP METABOLIC PANEL 2. LPRD (laryngopharyngeal reflux disease) K21.9 omeprazole (PRILOSEC) 20 mg capsule 3. Chronic constipation K59.09 4. Vitamin D deficiency E55.9 Cholecalciferol, Vitamin D3, 125 mcg (5,000 unit) cap VITAMIN D 25 HYDROXY 5. Encounter for long-term current use of medication Z79.899 CBC VITAMIN D 25 HYDROXY MAGNESIUM BLD COMP METABOLIC PANEL 6. Encounter for immunization Z23 TETANUS/DIPTHERIA BOOSTER (OVER 7), PF IM 7. Persistent depressive disorder F34.1 DULoxetine (CYMBALTA) 20 mg capsule Above issues addressed with patient. Patient involved in shared decision making for management of medical issues. Try Miralax more often and find routine dose that helps prevent constipation; Linzess can be considered if needed, but at this time, her constipation does not seem severe enough to need Linzess since Miralax can help get bowels moving. Increase PPI dose to control GERD at night. Further evaluation and treatment as indicated. History and medications reviewed. Epic updated as needed Refills and/or prescriptions taken care of and meds adjusted as indicated after reviewed history, exam and labs. Adjust meds as indicated. Health Maintenance reviewed. Updated record and/or ordered tests as recorded. Encouraged on efforts at healthy diet and regular exercise and adequate sleep. Titrate Cymbalta as needed. Discussed R/B/I/A. Further evaluation and treatment as indicated. Stewart Escobedo MD documented in this encounter [facility] 04-07-2022 Miscellaneous Notes Received 03/29 PSG results from [facility]. Patient has follow-up 04/[address] Escobedo. Placed in upcoming appointments file. documented in this encounter [facility] 01-16-2022 Note HNO ID: [id number] Author: Stewart Escobedo MD Service: ? Author Type: Physician Type: Progress Notes Filed: 01/16/2022 8:41 PM Note Text: This note was created using ColorPlazariter. Subjective Ramandeep Snow is a 41 year old female. Patient presents with: Fatigue Medication Follow-up SUBJECTIVE: Ramandeep Snow is a 41 year old year old lady here today for appointment for review of medical conditions: Fatigue an medications. Transferred care to our dyad with appointment with DANELLE Tapia 10/06/2021. Ongoing issues with insomnia and fatigue. Stopped trazodone since was causing adverse effect of daytime fatigue. Went to information talk at [facility] and talked to doctor there. GERD, BRANDEE,RLS work up discussed. Does have cough at night.. Started about 2 years ago. Wakes up coughing at least once or twice a night. Just gets occasional heart burn. Sometimes cough during the day. No problems with allergies. Stopped caffeine Avoiding alcohol. Trying whole foods. Cut out processed sugars. At home, weight down. Work anxiety affects BP. BP can be down to 94 when working at home. Does drink enough water--at least 4 to 8 glasses water per day Gets RLS symptoms. Gets creepy crawlies. This has been going on also about 2 years. Never woke up gasping. Snoring just once in a while. Wellbutrin made her feel more agitated. Caused dry mouth constipation. Noted that is up several times a night. PAST MEDICAL HISTORY Diagnosis Date Anxiety and depression PMH - PAST MEDICAL HISTORY OF heart murmur as child Current Outpatient Medications Medication Sig buPROPion XL (WELLBUTRIN XL) 150 mg 24 hr tablet Take 1 tablet by mouth once daily. Cholecalciferol, Vitamin D3, (VITAMIN D-3) 50 mcg (2,000 unit) cap Take by mouth. traZODone (DESYREL) 50 mg tablet Take 1 tablet by mouth daily at bedtime. lisinopril-hydroCHLOROthiazide (PRINZIDE, ZESTORETIC) 20-25 mg per tablet Take 1 tablet by mouth once daily. No current facility-administered medications for this visit. Review of Systems Objective BP 112/72 (BP Site: Left Arm, BP Position: Sitting, BP Cuff Size: Large Adult) Pulse 60 Temp 36.2 ?C (97.1 ?F) (Temporal) Resp 16 Wt 69.9 kg (154 lb) LMP 01/11/2011 BMI 28.63 kg/m? Physical Exam Constitutional: Appearance: Normal appearance. HENT: Head: Normocephalic. Eyes: Conjunctiva/sclera: Conjunctivae normal. Cardiovascular: Rate and Rhythm: Normal rate and regular rhythm. Heart sounds: Normal heart sounds. Pulmonary: Effort: Pulmonary effort is normal. Breath sounds: Normal breath sounds. Skin: General: Skin is warm and dry. Neurological: General: No focal deficit present. Mental Status: She is alert and oriented to person, place, and time. Psychiatric: Mood and Affect: Mood normal. Behavior: Behavior normal. Thought Content: Thought content normal. Judgment: Judgment normal. Assessment and Plan ASSESSMENT/PLAN: 1. Hypertension, unspecified type - ICD9: 401.9, ICD10: I10 (primary diagnosis) - good control - Continue current medication(s) - Recommended regular aerobic exercise. - Recommend home blood pressure monitoring, to bring results in on next visit - Can back off dose if BP getting too low. - Goal of BP <130/80 - LISINOPRIL 20 MG-HYDROCHLOROTHIAZIDE 25 MG TABLET - COMP METABOLIC PANEL - CBC - POLYSOMNOGRAM (PSG) 2. Vitamin D deficiency - ICD9: 268.9, ICD10: E55.9 Adjust replacement as needed - VITAMIN D 25 HYDROXY 3. LPRD (laryngopharyngeal reflux disease) - ICD9: 478.79, ICD10: K21.9 - Discussed lifestyle modifications including losing weight, limiting caffeine, no meals three hours before sleep, and head of bed elevation - Begin treatment with Prilosec 20 mg QD 4. Encounter for long-term current use of medication - ICD9: V58.69, ICD10: Z79.899 - COMP METABOLIC PANEL - CBC - VITAMIN D 25 HYDROXY 5. RLS (restless legs syndrome) - ICD9: 333.94, ICD10: G25.81 Further evaluation and treatment as indicated. - POLYSOMNOGRAM (PSG) - FERRITIN BLD 6. Daytime sleepiness - ICD9: 780.54, ICD10: R40.0 Further evaluation and treatment as indicated. - POLYSOMNOGRAM (PSG) Stewart Escobedo MD [facility] 01-16-2022 History of Presen t illness Narrative This note was created using Logisticareter. Subjective Ramandeep Snow is a 41 year old female. Patient presents with: Fatigue Medication Follow-up SUBJECTIVE: Ramandeep Snow is a 41 year old year old lady here today for appointment for review of medical conditions: Fatigue an medications. Transferred care to our dyad with appointment with Tami Bucio, DANELLE 10/06/2021. Ongoing issues with insomnia and fatigue. Stopped trazodone since was causing adverse effect of daytime fatigue. Went to information talk at [facility] and talked to doctor there. GERD, BRANDEE,RLS work up discussed. Does have cough at night.. Started about 2 years ago. Wakes up coughing at least once or twice a night. Just gets occasional heart burn. Sometimes cough during the day. No problems with allergies. Stopped caffeine Avoiding alcohol. Trying whole foods. Cut out processed sugars. At home, weight down. Work anxiety affects BP. BP can be down to 94 when working at home. Does drink enough water--at least 4 to 8 glasses water per day Gets RLS symptoms. Gets creepy crawlies. This has been going on also about 2 years. Never woke up gasping. Snoring just once in a while. Wellbutrin made her feel more agitated. Caused dry mouth constipation. Noted that is up several times a night. PAST MEDICAL HISTORY Diagnosis Date Anxiety and depression PMH - PAST MEDICAL HISTORY OF heart murmur as child Current Outpatient Medications Medication Sig buPROPion XL (WELLBUTRIN XL) 150 mg 24 hr tablet Take 1 tablet by mouth once daily. Cholecalciferol, Vitamin D3, (VITAMIN D-3) 50 mcg (2,000 unit) cap Take by mouth. traZODone (DESYREL) 50 mg tablet Take 1 tablet by mouth daily at bedtime. lisinopril-hydroCHLOROthiazide (PRINZIDE, ZESTORETIC) 20-25 mg per tablet Take 1 tablet by mouth once daily. No current facility-administered medications for this visit. Review of Systems Objective BP 112/72 (BP Site: Left Arm, BP Position: Sitting, BP Cuff Size: Large Adult) Pulse 60 Temp 36.2 C (97.1 F) (Temporal) Resp 16 Wt 69.9 kg (154 lb) LMP 01/11/2011 BMI 28.63 kg/m Physical Exam Constitutional: Appearance: Normal appearance. HENT: Head: Normocephalic. Eyes: Conjunctiva/sclera: Conjunctivae normal. Cardiovascular: Rate and Rhythm: Normal rate and regular rhythm. Heart sounds: Normal heart sounds. Pulmonary: Effort: Pulmonary effort is normal. Breath sounds: Normal breath sounds. Skin: General: Skin is warm and dry. Neurological: General: No focal deficit present. Mental Status: She is alert and oriented to person, place, and time. Psychiatric: Mood and Affect: Mood normal. Behavior: Behavior normal. Thought Content: Thought content normal. Judgment: Judgment normal. Assessment and Plan ASSESSMENT/PLAN: 1. Hypertension, unspecified type - ICD9: 401.9, ICD10: I10 (primary diagnosis) - good control - Continue current medication(s) - Recommended regular aerobic exercise. - Recommend home blood pressure monitoring, to bring results in on next visit - Can back off dose if BP getting too low. - Goal of BP <130/80 - LISINOPRIL 20 MG-HYDROCHLOROTHIAZIDE 25 MG TABLET - COMP METABOLIC PANEL - CBC - POLYSOMNOGRAM (PSG) 2. Vitamin D deficiency - ICD9: 268.9, ICD10: E55.9 Adjust replacement as needed - VITAMIN D 25 HYDROXY 3. LPRD (laryngopharyngeal reflux disease) - ICD9: 478.79, ICD10: K21.9 - Discussed lifestyle modifications including losing weight, limiting caffeine, no meals three hours before sleep, and head of bed elevation - Begin treatment with Prilosec 20 mg QD 4. Encounter for long-term current use of medication - ICD9: V58.69, ICD10: Z79.899 - COMP METABOLIC PANEL - CBC - VITAMIN D 25 HYDROXY 5. RLS (restless legs syndrome) - ICD9: 333.94, ICD10: G25.81 Further evaluation and treatment as indicated. - POLYSOMNOGRAM (PSG) - FERRITIN BLD 6. Daytime sleepiness - ICD9: 780.54, ICD10: R40.0 Further evaluation and treatment as indicated. - POLYSOMNOGRAM (PSG) Stewart Escobedo MD documented in this encounter [facility] 10-06-2021 Note HNO ID: [id number] Author: Tami Bucio APRN.WIRING TECHNICIAN Service: ? Author Type: Nurse Specialist Type: Progress Notes Filed: 10/06/2021 7:54 AM Note Text: SUBJECTIVE: HEPATITIS C SCREENING Never done HPV TESTING due on 02/02/2015 PAP TESTING due on 03/04/2015 MAMMOGRAM due on 2018 DTAP,TDAP,TD(3 - Td or Tdap) due on 09/04/2020 HPI Ramandeep Snow is a 41 year old female. PMH significant for ACTIVE PROBLEM LIST Depressive Disorder, Not Elsewhere Classified HPI excerpted from last visit: Former PCP: Dr Dodge, last seen 2010. Most recently seen by: CASSIA FRANCIS Laundromat Manager: Dr Lazo SPECIAL EFFECTS PERSON: Celia Kapadia and Dr Gallego [facility] Recent labwork: August 2021 ER/Hospitalization:no recent Outside records: labs at visit She notes several health concerns. Notes did not seem to be making much progress with previous physician. Would like to establish care here with Dr Escobedo. . Notes history of anxiety depression. Previously on Wellbutrin but did not seem to agree with her, adverse effect with this medication. Notes that not currently going to counselor but was seen in the past, Haider and . did not seem to help much, was not having cognitive behavioral therapy or other way to manage stress and anxiety and depression so stopped going. Note she is not been consistently taking medication. She notes significant amount of stress at work. She notes trouble falling asleep and staying asleep. No snoring no apnea. She notes fatigue, possibly related to not getting enough sleep. 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 Notes she is not as active now as she used to be. No current routine exercise. Diet: Tries to eat healthy. She notes chronic constipation for which she takes magnesium and occasionally a constipation remedy which seems to help. Today notes she has had good results with trazodone, sleeping more and feeling better due to this. Notes she has been working with therapist who advises she has binge eating disorder. Would like referral to eating disorder clinic and treatment with medication. Notes has upcoming appointment with Celia Kapadia SPECIAL EFFECTS PERSON provider later this month. Review of Systems Constitutional: Positive for fatigue and unexpected weight change. Respiratory: Negative. Cardiovascular: Negative. Gastrointestinal: Positive for constipation. Endocrine: Negative. Psychiatric/Behavioral: Positive for dysphoric mood and sleep disturbance. The patient is nervous/anxious. Objective BP 110/70 Pulse 64 Resp 16 Ht 156.2 cm (5' 1.5 ) Wt 65.8 kg (145 lb) LMP 01/11/2011 BMI 26.95 kg/m? Physical Exam Vitals and nursing note reviewed. Constitutional: Appearance: Normal appearance. She is normal weight. HENT: Head: Normocephalic and atraumatic. Eyes: Conjunctiva/sclera: Conjunctivae normal. Neck: Thyroid: No thyroid mass or thyromegaly. Vascular: Normal carotid pulses. No carotid bruit or JVD. Cardiovascular: Rate and Rhythm: Normal rate and regular rhythm. Pulses: Normal pulses. Carotid pulses are 2+ on the right side and 2+ on the left side. Radial pulses are 2+ on the right side and 2+ on the left side. Heart sounds: Normal heart sounds. Pulmonary: Effort: Pulmonary effort is normal. Breath sounds: Normal breath sounds. Abdominal: General: Bowel sounds are normal. Palpations: Abdomen is soft. Musculoskeletal: Right lower leg: No edema. Left lower leg: No edema. Skin: General: Skin is warm and dry. Neurological: General: No focal deficit present. Mental Status: She is oriented to person, place, and time. ALLERGIES Allergen Reactions - Chlorhexidine Rash MEDICATIONS Cholecalciferol, Vitamin D3, (VITAMIN D-3) 50 mcg (2,000 unit) cap Take by mouth. traZODone (DESYREL) 50 mg tablet Take 1 tablet by mouth daily at bedtime. lisinopril-hydroCHLOROthiazide (PRINZIDE, ZESTORETIC) 20-25 mg per tablet Take 1 tablet by mouth once daily. betamethasone dipropionate, augmented (DIPROLENE) 0.05 % cream ubidecarenone/vitamin E mixed (COQ10 SG 100 ORAL) Take by mouth. Potassium 99 mg tab Take by mouth. Magnesium 250 mg tab Take 250 mg by mouth. calcium carbonate/vitamin D2 ([id number] ORAL) Take by mouth. B-complex with vitamin C (SUPER B COMPLEX-VITAMIN C ORAL) Take by mouth. levonorgestrel(MIRENA 20 MCG/24 HR INTRAUTERINE DEVICE) Use as directed. PAST MEDICAL HISTORY Diagnosis Date - Anxiety and depression - PMH - PAST MEDICAL HISTORY OF heart murmur as child Social History Tobacco Use - Smoking status: Never Smoker - Smokeless tobacco: Never Used Substance Use Topics - Alcohol use: Yes Comment: rare, on weekends - Drug use: No ASSESSMENT/PLAN: 1. Anxiety and depression - ICD9: 300.00, 311, ICD10: F41.9, F32.A (primary diagnosis) She notes prior history of anxiety and depression. Notes feeling improved with trazodone now getting more slee (more content not included)... [facility] 10-06-2021 History of Presen t illness Narrative SUBJECTIVE: HEPATITIS C SCREENING Never done HPV TESTING due on 02/02/2015 PAP TESTING due on 03/04/2015 MAMMOGRAM due on 2018 DTAP,TDAP,TD(3 - Td or Tdap) due on 09/04/2020 HPI Ramandeep Snow is a 41 year old female. PMH significant for ACTIVE PROBLEM LIST Depressive Disorder, Not Elsewhere Classified HPI excerpted from last visit: Former PCP: Dr Dodge, last seen 2010. Most recently seen by: CASSIA FRANCIS Laundromat Manager: Dr Lazo SPECIAL EFFECTS PERSON: Celia Kapadia and Dr Gallego [facility] Recent labwork: August 2021 ER/Hospitalization:no recent Outside records: labs at visit She notes several health concerns. Notes did not seem to be making much progress with previous physician. Would like to establish care here with Dr Escobedo. . Notes history of anxiety depression. Previously on Wellbutrin but did not seem to agree with her, adverse effect with this medication. Notes that not currently going to counselor but was seen in the past, Haider and . did not seem to help much, was not having cognitive behavioral therapy or other way to manage stress and anxiety and depression so stopped going. Note she is not been consistently taking medication. She notes significant amount of stress at work. She notes trouble falling asleep and staying asleep. No snoring no apnea. She notes fatigue, possibly related to not getting enough sleep. 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 Notes she is not as active now as she used to be. No current routine exercise. Diet: Tries to eat healthy. She notes chronic constipation for which she takes magnesium and occasionally a constipation remedy which seems to help. Today notes she has had good results with trazodone, sleeping more and feeling better due to this. Notes she has been working with therapist who advises she has binge eating disorder. Would like referral to eating disorder clinic and treatment with medication. Notes has upcoming appointment with Celia Kapadia [employer] E[employer] PERSON provider later this month. Review of Systems Constitutional: Positive for fatigue and unexpected weight change. Respiratory: Negative. Cardiovascular: Negative. Gastrointestinal: Positive for constipation. Endocrine: Negative. Psychiatric/Behavioral: Positive for dysphoric mood and sleep disturbance. The patient is nervous/anxious. Objective BP 110/70 Pulse 64 Resp 16 Ht 156.2 cm (5' 1.5 ) Wt 65.8 kg (145 lb) LMP 01/11/2011 BMI 26.95 kg/m Physical Exam Vitals and nursing note reviewed. Constitutional: Appearance: Normal appearance. She is normal weight. HENT: Head: Normocephalic and atraumatic. Eyes: Conjunctiva/sclera: Conjunctivae normal. Neck: Thyroid: No thyroid mass or thyromegaly. Vascular: Normal carotid pulses. No carotid bruit or JVD. Cardiovascular: Rate and Rhythm: Normal rate and regular rhythm. Pulses: Normal pulses. Carotid pulses are 2+ on the right side and 2+ on the left side. Radial pulses are 2+ on the right side and 2+ on the left side. Heart sounds: Normal heart sounds. Pulmonary: Effort: Pulmonary effort is normal. Breath sounds: Normal breath sounds. Abdominal: General: Bowel sounds are normal. Palpations: Abdomen is soft. Musculoskeletal: Right lower leg: No edema. Left lower leg: No edema. Skin: General: Skin is warm and dry. Neurological: General: No focal deficit present. Mental Status: She is oriented to person, place, and time. ALLERGIES Allergen Reactions Chlorhexidine Rash MEDICATIONS Cholecalciferol, Vitamin D3, (VITAMIN D-3) 50 mcg (2,000 unit) cap Take by mouth. traZODone (DESYREL) 50 mg tablet Take 1 tablet by mouth daily at bedtime. lisinopril-hydroCHLOROthiazide (PRINZIDE, ZESTORETIC) 20-25 mg per tablet Take 1 tablet by mouth once daily. betamethasone dipropionate, augmented (DIPROLENE) 0.05 % cream ubidecarenone/vitamin E mixed (COQ10 SG 100 ORAL) Take by mouth. Potassium 99 mg tab Take by mouth. Magnesium 250 mg tab Take 250 mg by mouth. calcium carbonate/vitamin D2 ([id number]-F ORAL) Take by mouth. B-complex with vitamin C (SUPER B COMPLEX-VITAMIN C ORAL) Take by mouth. levonorgestrel(MIRENA 20 MCG/24 HR INTRAUTERINE DEVICE) Use as directed. PAST MEDICAL HISTORY Diagnosis Date Anxiety and depression PMH - PAST MEDICAL HISTORY OF heart murmur as child Social History Tobacco Use Smoking status: Never Smoker Smokeless tobacco: Never Used Substance Use Topics Alcohol use: Yes Comment: rare, on weekends Drug use: No ASSESSMENT/PLAN: 1. Anxiety and depression - ICD9: 300.00, 311, ICD10: F41.9, F32.A (primary diagnosis) She notes prior history of anxiety and depression. Notes feeling improved with trazodone now getting more sleep has seen therapist Q2 weeks since last here 2. Fatigue, unspecified type - ICD9: 780.79, ICD10: R53.83 Labs [facility] August 2021 within normal limits 5. Weight gain - ICD9: 783.1, ICD10: R63.5 stable, recheck labs 3 mos - COMP METABOLIC PANEL 6. Encounter for screening mammogram for breast cancer - ICD9: V76.12, ICD10: Z12.31 Routine screening recommended, routine self-exam endorsed - VALE SCREENING W [place] - completed [facility], within normal limits 7. . Insomnia, unspecified type - ICD9: 780.52, ICD10: G47.00 - CONSULT TO [facility] - TRAZODONE 50 MG TABLET 8. Constipation, unspecified constipation type - ICD9: 564.00, ICD10: K59.00 Currently taking magnesium and vilk-ior-psyskin T to help with this. Increasing exercise should help. Endorse fiber and sufficient fluid intake MiraLAX if needed, nzyk-gzj-uynpnsy, but can be taken every day if needed 9. Vitamin D deficiency - ICD9: 268.9, ICD10: E55.9 Continue with supplemental unchanged, recent level was within normal limits- CHOLECALCIFEROL (VITAMIN D3) 50 MCG (2,000 UNIT) CAPSULE Will refer to eating disorders clinic. Tami Bucio APRN.CNS Medical Decision Making: Problems: Moderate: 1+ chronic illnesses with change Data: Unique test(s) ordered: 3+ Risk: Moderate: Drug management Medical Decision Making Level: 4 - Moderate documented in this encounter [facility] 09-04-2021 Note HNO ID: [id number] Author: Tami Bucio APRN.CNS Service: ? Author Type: Nurse Specialist Type: Progress Notes Filed: 09/04/2021 8:54 AM Note Text: SUBJECTIVE: HEPATITIS C SCREENING Never done HPV TESTING due on 02/02/2015 PAP TESTING due on 03/04/2015 MAMMOGRAM due on 2018 DTAP,TDAP,TD(3 - Td or Tdap) due on 09/04/2020 SETH Snow is a 41 year old female. PMH significant for ACTIVE PROBLEM LIST Depressive Disorder, Not Elsewhere Classified Former PCP: Dr Dodge, last seen 2010. Most recently seen by: CASSIA FRANCIS Laundromat Manager: Dr Lazo SPECIAL EFFECTS PERSON: Celia Kapadia and Dr Gallego [facility] Recent labwork: August 2021 ER/Hospitalization:no recent Outside records: labs at visit She notes several health concerns. Notes did not seem to be making much progress with previous physician. Would like to establish care here with Dr Escobedo. . Notes history of anxiety depression. Previously on Wellbutrin but did not seem to agree with her, adverse effect with this medication. Notes that not currently going to counselor but was seen in the past, Haider and . did not seem to help much, was not having cognitive behavioral therapy or other way to manage stress and anxiety and depression so stopped going. Note she is not been consistently taking medication. She notes significant amount of stress at work. She notes trouble falling asleep and staying asleep. No snoring no apnea. She notes fatigue, possibly related to not getting enough sleep. 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 Notes she is not as active now as she used to be. No current routine exercise. Diet: Tries to eat healthy. She notes chronic constipation for which she takes magnesium and occasionally a constipation T which seems to help. HTN: Without report of headache, chest pain, palpitations, dyspnea, peripheral edema, orthopnea, fatigue and PND. Last 3 Encounter BP Readings: Date: BP: 02/03/2011 122/80 01/15/2011 96/66 12/21/2010 98/72 Review of Systems Constitutional: Positive for fatigue and unexpected weight change. Respiratory: Negative. Cardiovascular: Negative. Gastrointestinal: Positive for constipation. Endocrine: Negative. Psychiatric/Behavioral: Positive for dysphoric mood and sleep disturbance. The patient is nervous/anxious. Objective BP 110/74 Pulse 60 Resp 16 Ht 156.8 cm (5' 1.75 ) Wt 65.3 kg (144 lb) LMP 01/11/2011 BMI 26.55 kg/m? Physical Exam Vitals and nursing note reviewed. Constitutional: Appearance: Normal appearance. She is normal weight. HENT: Head: Normocephalic and atraumatic. Eyes: Conjunctiva/sclera: Conjunctivae normal. Neck: Thyroid: No thyroid mass or thyromegaly. Vascular: Normal carotid pulses. No carotid bruit or JVD. Cardiovascular: Rate and Rhythm: Normal rate and regular rhythm. Pulses: Normal pulses. Carotid pulses are 2+ on the right side and 2+ on the left side. Radial pulses are 2+ on the right side and 2+ on the left side. Heart sounds: Normal heart sounds. Pulmonary: Effort: Pulmonary effort is normal. Breath sounds: Normal breath sounds. Abdominal: General: Bowel sounds are normal. Palpations: Abdomen is soft. Musculoskeletal: Right lower leg: No edema. Left lower leg: No edema. Skin: General: Skin is warm and dry. Neurological: General: No focal deficit present. Mental Status: She is oriented to person, place, and time. ALLERGIES Allergen Reactions - Chlorhexidine Rash ubidecarenone/vitamin E mixed (COQ10 SG 100 ORAL), Take by mouth. Potassium 99 mg tab, Take by mouth. Cholecalciferol, Vitamin D3, (VITAMIN D-3) 50 mcg (2,000 unit) cap, Take by mouth. Magnesium 250 mg tab, Take 250 mg by mouth. calcium carbonate/vitamin D2 ([id number] ORAL), Take by mouth. B-complex with vitamin C (SUPER B COMPLEX-VITAMIN C ORAL), Take by mouth. lisinopril-hydroCHLOROthiazide (PRINZIDE, ZESTORETIC) 20-25 mg per tablet, Take 1 tablet by mouth once daily. betamethasone dipropionate, augmented (DIPROLENE) 0.05 % cream, traZODone (DESYREL) 50 mg tablet, Take 1 tablet by mouth daily at bedtime. levonorgestrel(MIRENA 20 MCG/24 HR INTRAUTERINE DEVICE), Use as directed. PAST MEDICAL HISTORY Diagnosis Date - Anxiety and depression - PMH - PAST MEDICAL HISTORY OF heart murmur as child Social History Tobacco Use - Smoking status: Never Smoker - Smokeless tobacco: Never Used Substance Use Topics - Alcohol use: Yes Comment: rare - Drug use: No ASSESSMENT/PLAN: 1. Anxiety and depression - ICD9: 300.00, 311, ICD10: F41.9, F32.A (primary diagnosis) She notes prior history of anxiety and depression. Previously was taking medications but not consistently, previous medications not seem to work well. Notes previously was taking Wellbutrin but stopped due to adverse effects. Notes she was seeing counselor however stopped going as she did not see (more content not included)... [facility] 09-04-2021 History of Presen t illness Narrative SUBJECTIVE: HEPATITIS C SCREENING Never done HPV TESTING due on 02/02/2015 PAP TESTING due on 03/04/2015 MAMMOGRAM due on 2018 DTAP,TDAP,TD(3 - Td or Tdap) due on 09/04/2020 SETH Snow is a 41 year old female. PMH significant for ACTIVE PROBLEM LIST Depressive Disorder, Not Elsewhere Classified Former PCP: Dr Dodge, last seen 2010. Most recently seen by: CASSIA FRANCIS Laundromat Manager: Dr Lazo SPECIAL EFFECTS PERSON: Celia Kapadia and Dr Gallego [facility] Recent labwork: August 2021 ER/Hospitalization:no recent Outside records: labs at visit She notes several health concerns. Notes did not seem to be making much progress with previous physician. Would like to establish care here with Dr Escobedo. . Notes history of anxiety depression. Previously on Wellbutrin but did not seem to agree with her, adverse effect with this medication. Notes that not currently going to counselor but was seen in the past, Haider and . did not seem to help much, was not having cognitive behavioral therapy or other way to manage stress and anxiety and depression so stopped going. Note she is not been consistently taking medication. She notes significant amount of stress at work. She notes trouble falling asleep and staying asleep. No snoring no apnea. She notes fatigue, possibly related to not getting enough sleep. 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 Notes she is not as active now as she used to be. No current routine exercise. Diet: Tries to eat healthy. She notes chronic constipation for which she takes magnesium and occasionally a constipation T which seems to help. HTN: Without report of headache, chest pain, palpitations, dyspnea, peripheral edema, orthopnea, fatigue and PND. Last 3 Encounter BP Readings: Date: BP: 02/03/2011 122/80 01/15/2011 96/66 12/21/2010 98/72 Review of Systems Constitutional: Positive for fatigue and unexpected weight change. Respiratory: Negative. Cardiovascular: Negative. Gastrointestinal: Positive for constipation. Endocrine: Negative. Psychiatric/Behavioral: Positive for dysphoric mood and sleep disturbance. The patient is nervous/anxious. Objective BP 110/74 Pulse 60 Resp 16 Ht 156.8 cm (5' 1.75 ) Wt 65.3 kg (144 lb) LMP 01/11/2011 BMI 26.55 kg/m Physical Exam Vitals and nursing note reviewed. Constitutional: Appearance: Normal appearance. She is normal weight. HENT: Head: Normocephalic and atraumatic. Eyes: Conjunctiva/sclera: Conjunctivae normal. Neck: Thyroid: No thyroid mass or thyromegaly. Vascular: Normal carotid pulses. No carotid bruit or JVD. Cardiovascular: Rate and Rhythm: Normal rate and regular rhythm. Pulses: Normal pulses. Carotid pulses are 2+ on the right side and 2+ on the left side. Radial pulses are 2+ on the right side and 2+ on the left side. Heart sounds: Normal heart sounds. Pulmonary: Effort: Pulmonary effort is normal. Breath sounds: Normal breath sounds. Abdominal: General: Bowel sounds are normal. Palpations: Abdomen is soft. Musculoskeletal: Right lower leg: No edema. Left lower leg: No edema. Skin: General: Skin is warm and dry. Neurological: General: No focal deficit present. Mental Status: She is oriented to person, place, and time. ALLERGIES Allergen Reactions Chlorhexidine Rash ubidecarenone/vitamin E mixed (COQ10 SG 100 ORAL), Take by mouth. Potassium 99 mg tab, Take by mouth. Cholecalciferol, Vitamin D3, (VITAMIN D-3) 50 mcg (2,000 unit) cap, Take by mouth. Magnesium 250 mg tab, Take 250 mg by mouth. calcium carbonate/vitamin D2 (UGYSUPR-385-K ORAL), Take by mouth. B-complex with vitamin C (SUPER B COMPLEX-VITAMIN C ORAL), Take by mouth. lisinopril-hydroCHLOROthiazide (PRINZIDE, ZESTORETIC) 20-25 mg per tablet, Take 1 tablet by mouth once daily. betamethasone dipropionate, augmented (DIPROLENE) 0.05 % cream, traZODone (DESYREL) 50 mg tablet, Take 1 tablet by mouth daily at bedtime. levonorgestrel(MIRENA 20 MCG/24 HR INTRAUTERINE DEVICE), Use as directed. PAST MEDICAL HISTORY Diagnosis Date Anxiety and depression PMH - PAST MEDICAL HISTORY OF heart murmur as child Social History Tobacco Use Smoking status: Never Smoker Smokeless tobacco: Never Used Substance Use Topics Alcohol use: Yes Comment: rare Drug use: No ASSESSMENT/PLAN: 1. Anxiety and depression - ICD9: 300.00, 311, ICD10: F41.9, F32.A (primary diagnosis) She notes prior history of anxiety and depression. Previously was taking medications but not consistently, previous medications not seem to work well. Notes previously was taking Wellbutrin but stopped due to adverse effects. Notes she was seeing counselor however stopped going as she did not see much change with this and was not directed toward management of current symptoms such as cognitive behavioral therapy. Interested in counseling. Agreeable to social work administrator calling for follow-up. Recommend trial of trazodone to see if this works, stop taking and let us know if any problems. She notes trouble currently also with falling and staying asleep. Notes significant stress at work, [facility] - CONSULT TO [facility] ADULT - TRAZODONE 50 MG TABLET 2. Fatigue, unspecified type - ICD9: 780.79, ICD10: R53.83 Most recent lab work within normal limits, recheck in 3 months - TSH BLD 3. Encounter for screening for HIV - ICD9: V73.89, ICD10: Z11.4 Routine screening, complete with next lab draw - HIV 1 2 COMBO(AG/AB),WITH REFLEX TO DIFFERENTIATION 4. Need for hepatitis C screening test - ICD9: V73.89, ICD10: Z11.59 Routine screening, complete with next lab draw - HEP C AB IA W/CONF SCRN 5. Weight gain - ICD9: 783.1, ICD10: R63.5 Endorse plant-based diet, Mediterranean diet and routine exercise. Recommend aiming for about 10,000 steps per day. Recheck TSH in 3 months - COMP METABOLIC PANEL 6. Encounter for screening mammogram for breast cancer - ICD9: V76.12, ICD10: Z12.31 Routine screening recommended, routine self-exam endorsed - VALE SCREENING W SYDNEY 7. Hypertension, unspecified type - ICD9: 401.9, ICD10: I10 Currently well controlled, printed prescription for refill when needed. - LISINOPRIL 20 MG-HYDROCHLOROTHIAZIDE 25 MG TABLET 8. Insomnia, unspecified type - ICD9: 780.52, ICD10: G47.00 - CONSULT TO [facility] ADULT - TRAZODONE 50 MG TABLET 9. Constipation, unspecified constipation type - ICD9: 564.00, ICD10: K59.00 Currently taking magnesium and xqyz-olx-ogagwbb T to help with this. Increasing exercise should help. Endorse fiber and sufficient fluid intake MiraLAX if needed, wrsd-rfr-cfzhdgl, but can be taken every day if needed 10. Vitamin D deficiency - ICD9: 268.9, ICD10: E55.9 Continue with supplemental unchanged, recent level was within normal limits- CHOLECALCIFEROL (VITAMIN D3) 50 MCG (2,000 UNIT) CAPSULE Recent labs completed, August 2021 at [facility] 1 month recheck with me, 6 months follow-up with Dr. Escobedo to establish care Tami Bucio APRN.CNS Medical Decision Making: Problems: Moderate: 1+ chronic illnesses with change Data: Unique test(s) ordered: 3+ Risk: Moderate: Drug management Medical Decision Making Level: 4 - Moderate documented in this encounter [facility] Diagnosis Binge eating disorder- Primary Anxiety and depression Dysthymic disorder [facility] Diagnosis Binge eating disorder- Primary Anxiety and depression Dysthymic disorder Fatigue, unspecified type [facility] Diagnosis Hypertension, unspecified type- Primary Vitamin D deficiency Unspecified vitamin D deficiency LPRD (laryngopharyngeal reflux disease) Other diseases of larynx Encounter for long-term current use of medication RLS (restless legs syndrome) Restless legs syndrome (RLS) Daytime sleepiness [facility] Diagnosis Hypertension, unspecified type- Primary LPRD (laryngopharyngeal reflux disease) Other diseases of larynx Chronic constipation Unspecified constipation Vitamin D deficiency Unspecified vitamin D deficiency Encounter for long-term current use of medication Encounter for immunization Need for other specified prophylactic vaccination against single bacterial disease Persistent depressive disorder [facility] Diagnosis Encounter for screening mammogram for breast cancer [facility] Diagnostic Procedure Only (Routine) - Pending Review Specialty Diagnoses / Procedures Referred By Soledad t Referred To Contact [facility] Diagnoses Encounter for screening mammogram for breast cancer Procedures VALE SCREENING W SYDNEY SCREENING DIGITAL BREAST TOMOSYNTHESIS BI SCREENING MAMMOGRAPHY BI 2-VIEW BREAST INC Tami Leigh APRN.CNS [address] [place] [address] [facility] [address] [place] [address] Referral ID Status Reason Start Date Expiration Date Visits Requested Visits Authorized [id number] Pending Review Auto-Generat ed Referral 09/04/2021 10/04/2022 1 1 [facility] Diagnostic Procedure Only (Routine) - Pending Review Specialty Diagnoses / Procedures Referred By Soledad tomlinson Referred To Contact [facility] Diagnoses Encounter for screening mammogram for breast cancer Procedures VALE SCREENING SCREENING MAMMOGRAPHY BI 2-VIEW BREAST INC Stewart Farfan MD [address] [place] [address] [facility] [address] [place] [address] Referral ID Status Reason Start Date Expiration Date Visits Requested Visits Authorized [id number] Pending Review Auto-Generat ed Referral 08/11/2022 09/10/2023 1 1 [facility] Summary Purpose Family History No Family History Records Found Advance Directives No Advanced Directives Records Found Additional Source Comments Source Comments (unrecognize d section and content) In the event this informatio n is protected by the Federal Confidentiality of Alcohol and Drug Abuse Patient Records regulations: The Federal rules restrict any use of the information to criminally investigate or prosecute any alcohol or drug abuse patient.[facility] the event this information is protected by the Federal Confidentiality of Alcohol and Drug Abuse Patient Records regulations: The Federal rules restrict any use of the information to criminally investigate or prosecute any alcohol or drug abuse patient.[facility] the event this information is protected by the Federal Confidentiality of Alcohol and Drug Abuse Patient Records regulations: The Federal rules restrict any use of the information to criminally investigate or prosecute any alcohol or drug abuse patient.[facility] the event this information is protected by the Federal Confidentiality of Alcohol and Drug Abuse Patient Records regulations: The Federal rules restrict any use of the information to criminally investigate or prosecute any alcohol or drug abuse patient.[facility] the event this information is protected by the Federal Confidentiality of Alcohol and Drug Abuse Patient Records regulations: The Federal rules restrict any use of the information to criminally investigate or prosecute any alcohol or drug abuse patient.[facility] the event this information is protected by the Federal Confidentiality of Alcohol and Drug Abuse Patient Records regulations: The Federal rules restrict any use of the information to criminally investigate or prosecute any alcohol or drug abuse patient.[facility] the event this information is protected by the Federal Confidentiality of Alcohol and Drug Abuse Patient Records regulations: The Federal rules restrict any use of the information to criminally investigate or prosecute any alcohol or drug abuse patient.[facility] the event this information is protected by the Federal Confidentiality of Alcohol and Drug Abuse Patient Records regulations: The Federal rules restrict any use of the information to criminally investigate or prosecute any alcohol or drug abuse patient.[facility] the event this information is protected by the Federal Confidentiality of Alcohol and Drug Abuse Patient Records regulations: The Federal rules restrict any use of the information to criminally investigate or prosecute any alcohol or drug abuse patient.[facility] the event this information is protected by the Federal Confidentiality of Alcohol and Drug Abuse Patient Records regulations: The Federal rules restrict any use of the information to criminally investigate or prosecute any alcohol or drug abuse patient.[facility] Reason for Visit (unrecogniz ed section and content) Specialty Diagnoses / Procedures Referred By Soledad tomlinson Referred To Contact Internal Medicine / INTERNAL MEDICINE Diagnoses follow up/employee physical Procedures OFFICE/OUTPATIENT ESTABLISHED LOW MDM 20-29 MIN 4C EST Tami Bucio, ASSOCIATE SALES MANAGER.WIRING TECHNICIAN [address] [place] [address] Tami Bucio, ASSOCIATE SALES MANAGER.WIRING TECHNICIAN [address] [place] [address] Referral ID Status Reason Start Date Expiration Date V isits Requested Visits Authorized [id number] Authorized 10/06/2021 06/05/2022 10 10 Reason Comments Fatigue Medication Follow-up Reason Comments Establish Care Specialty Diagnoses / Procedures Referred By Soledad tomlinson Referred To Contact Internal Medicine / INTERNAL MEDICINE Diagnoses to establish Procedures 4C EXCEPTION Self Tami Bucio, ASSOCIATE SALES MANAGER.WIRING TECHNICIAN [address] [place] [address] Referral ID Status Reason Start Date Expiration Date Visits Re quested Visits Authorized [id number] Closed 09/04/2021 06/05/2022 1 1 Reason Comments Physical Reason Comments Results 03/29 [facility] Care Teams (unrecognized sec tion and content) Box Sealing Machine Catcher Relationship Specialty Start Date End Date Stewart Escobedo MD [address] [place] [address] PCP - General Internal Medicine 09/04/21 Box Sealing Machine Catcher Relationship Specialty Start Date End Date Stewart Escobedo MD [address] [facility] [place] [address] PCP - General Internal Medicine 09/04/21 Box Sealing Machine Catcher Relationship Specialty Start Date End Date Stewart Escobedo MD [address] [facility] [place] [address] PCP - General Internal Medicine 09/04/21 Box Sealing Machine Catcher Relationship Specialty Start Date End Date Stewart Escobedo MD [address] [place] [address], [place] [address] PCP - General Internal Medicine 09/04/21 Box Sealing Machine Catcher Relationship Specialty Start Date End Date Stewart Escobedo MD [address] [place] [address], [place] [address] PCP - General Internal Medicine 09/04/21 Box Sealing Machine Catcher Relationship Specialty Start Date End Date Stewart Escobedo MD [address] [place] [address], [place] [address] PCP - General Internal Medicine 09/04/21 Box Sealing Machine Catcher Relationship Specialty Start Date End Date Stewart Escobedo MD [address] [place] [address], [place] [address] PCP - General Internal Medicine 09/04/21 Box Sealing Machine Catcher Relationship Specialty Start Date End Date Stewart Escobedo MD [address] [place] [address], [place] [address] PCP - General Internal Medicine 09/04/21 INFORMATION SOURCE (unrecogn ized section and content) FOR RECORDS PERTAINING TO PATIENTS WHO ARE OR HAVE BEEN ENROLLED IN A CHEMICAL DEPENDENCY/SUBSTANCEABUSE PROGRAM, SOME INFORMATION MAY BE OMITTED. This clinical summary was aggregated from multiple sources. Caution should be exercised in using it in the provision of clinical care. This summary normalizes information from multiple sources, and as a consequence, information in this document may materially change the coding, format and clinical context of patient data. In addition, data may be omitted in some cases. CLINICAL DECISIONS SHOULD BE BASED ON THE PRIMARY CLINICAL RECORDS. [facility]. provides no warranty or guarantee of the accuracy or completeness of information in this document.
== END | disposition home or self-care (01) ==
LOC: LAB 10:32
PROVIDERS: PCP Internal Medicine; Referring Provider Dermatology; Visit Provider Dermatology
DX: D48.5 Neoplasm of uncertain behavior of skin (principal); L53.8 Other specified erythematous conditions
CPT/HCPCS: 88305

== ENCOUNTER → 2023-10-25 | Outpatient (CLI) | payer OTHER, SELFPAY ==
--- NOTE | 2023-10-25 07:41 | BI_ITS ---
MAMMOGRAPHY - BILATERAL SCREENING 3-D TOMOSYNTHESIS REASON FOR EXAM: Female, 43 years old. breast cancer screening PERTINENT HISTORY: No significant family history. TECHNIQUE: 2-D mammograms and 3-D Tomosynthesis of the breast (s) were performed. CAD was performed. COMPARISON: 09/29/2029 FINDINGS: The breast composition is composed of scattered fibroglandular density. Scattered benign calcifications are seen. No dense spiculated masses or suspicious microcalcifications are identified. No architectural distortion is identified. There is no skin thickening or retraction. There has been no significant change since the prior study. BI/SCRN MAMM (CAD)W/SYDNEY BILAT IMPRESSION: No mammographic signs of malignancy. Routine yearly mammograms recommended. ASSESSMENT CATEGORY: BIRADS Category 1: Negative. A letter regarding these results will be sent to the patient by the facility within 30 days. FOLLOW UP RECOMMENDATION: Yearly follow up mammogram recommended. (A) Approximately 10% of breast cancers are not detected by mammography. A normal mammogram should not delay biopsy of a clinically suspicious abnormality. Electronically Signed: Kristopher Kumar MD at 8:54 EDT ,
== END | disposition home or self-care (01) ==
LOC: OPBI 07:41
PROVIDERS: PCP Internal Medicine; Referring Provider Obstetrics & Gynecology; Visit Provider Obstetrics & Gynecology
DX: Z12.31 Encounter for screening mammogram for malignant neoplasm of breast (principal)
CPT/HCPCS: 77063; 77067

== ENCOUNTER → 2023-12-30 | Outpatient (CLI) | payer OTHER, SELFPAY ==
--- NOTE | 2023-12-30 12:14 | RAD_ITS ---
STUDY: X-RAY - RIGHT KNEE REASON FOR EXAM: Female, 43 years old. Knee pain. No known injury. TECHNIQUE: 4 view(s) of the knee. COMPARISON: None. FINDINGS: Normal visualized distal femur. Normal visualized proximal tibia and fibula. Normal proximal tibiofibular articulation. Normal medial femorotibial compartment. Normal lateral femorotibial compartment. Normal patellofemoral articulation. The soft tissue structures are unremarkable. RAD/Knee 4 or More Views IMPRESSION: Normal x-ray examination of the knee. Electronically Signed: Alden Garcia MD at 15:16 EDT ,
--- NOTE | 2023-12-30 12:14 | RAD_ITS ---
STUDY: X-RAY - LEFT KNEE REASON FOR EXAM: Female, 43 years old. pain TECHNIQUE: 4 view(s) of the knee. COMPARISON: None. FINDINGS: Normal visualized distal femur. Normal visualized proximal tibia and fibula. Normal proximal tibiofibular articulation. There is no demonstrated fracture. Normal medial femorotibial compartment. Normal lateral femorotibial compartment. There is mild degenerative arthrosis of the patellofemoral articulation. There is no demonstrated joint effusion. The soft tissue structures are unremarkable. RAD/Knee 4 or More Views IMPRESSION: No acute fracture or dislocation. Mild patellofemoral osteoarthritis. Electronically Signed: Junior Carrasquillo MD at 22:58 EDT ,
== END | disposition home or self-care (01) ==
LOC: RAD 12:14
PROVIDERS: PCP Internal Medicine; Referring Provider Orthopaedic Surgery; Visit Provider Orthopaedic Surgery
DX: M25.562 Pain in left knee (principal); M25.561 Pain in right knee
CPT/HCPCS: 73564

== ENCOUNTER → 2024-01-23 | Outpatient (CLI) | payer OTHER, SELFPAY ==
[2024-01-23 10:05] LABS: Mucous, Urine 0 SEEN /hpf (<or=2+)
[2024-01-23 10:52] LABS: Color, Urine Yellow (Yellow); Glucose, Dipstick Normal (Normal); Ketone-Dipstick Negative (Negative); Leukocyte Esterase-Dipstick 500 /ul (Negative); Nitrite-Dipstick Negative (Negative); Occult Blood-Urine 10 /ul (Negative); Protein-Dipstick Negative (Negative); Specific Gravity, Urine 1.005 (1.002-1.030); Urine Bilirubin Dipstick Negative (Negative); Urine Clarity Clear (Clear); Urine Urobilinogen Normal (Normal); Urine pH 6.5 (5.0 - 8.0)
[2024-01-23 11:00] LABS: Bacteria RARE /hpf (None Seen); Red Blood Cells-Urine 0-5 SEEN /hpf (0-5); Squamous Epithelial Cells - UA 0-5 SEEN /hpf (5-10); White Blood Cells 5-10 SEEN /hpf (0-5)
== END | disposition home or self-care (01) ==
PROVIDERS: PCP Internal Medicine; Referring Provider Internal Medicine; Visit Provider Internal Medicine
DX: N39.0 Urinary tract infection, site not specified (principal)
CPT/HCPCS: 81001; 87077; 87086; 87088; 87186

== ENCOUNTER 2024-01-26 17:00 | Outpatient (RCR) | payer OTHER, SELFPAY ==
--- NOTE | 2024-01-05 18:12 | HP.PTEVAL_ITS ---
Patient's Visit Information Visit Information Visit Information: RAMANDEEP SNOW is a 43 year old F referred to Physical Therapy by Dr. Armando Del Rosario DO with a diagnosis of B knee pain PF OA. Date of Evaluation: 01/05/24 Physical Therapist: Pelon Burns, DPT, OCS, CSCS Visit Plan Frequency: 2x /Week Duration: 4-6 Weeks Plan: 2x/week for 4-6(3 to start) for 1. hip stabs and LE strength and core strength with LB ROM ext focus, progrfess to home and gym exercises for core and hips/LE with list/pics. Ensure hip flexor stretches at home and rollout quad if needed. TENS and ice if sore at rest. IE HEP: quad stretch prone 30 5x daily and LAQ throughout day. Subjective Subjective: Crunching and popping in knees B for over a year and not sure what started it. Hard to climb stairs. had bunionectomy in B feet in 2019 nad pain has been worse since. Hurts to climb stairs and squat. had steroid injections B knees 3 days ago and 80% better. squatting and getting up is hard. Can walk 30 minutes then it hurts. 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 Basic ADLs are getting done with some pain with bending and stooping. Steps at home are no problem, has some pain. Hobbies: ride bike, walks reading. worse with riding and walking. No regular exercise outside of walking. Pain B knees: Pain Intensity (Out of 10): 0 Pain Intensity Range: 0 and 8 Comment: 2 with walking Objective Objective: Walks into PT without pain and good gait today, orthotic in L shoe to even out leg discrepancy. [employer] [facility] bed and chair I, steps reciprocal with pain desecnding adn some IR at femur and uncomfortable. AROM B knees 0-140 without pain. squatting hurts and limited but recovery is the worst B knee anterior pain reflexes 2/3 patella and achilles B sensation WNL to gross light touch B LE strength core 3+ abs and ext hip rotations er 3+ and IR 4-, abd 3+, ext 3+, flexion 4- with contralateral hip IR. quad into psoas is tight B but otherwise good flexibility. LB AROM causes central LBP with flexion< B SB L>R and ext min limited. - ant drawer adn bounce home B + patellar grind B. extremely sensitive. tender under B medial patella B and at joint line. - varus and valgus testing at B knees. Balance/Special Test Scores Lower Extremity Functional Score: 45 Goals Goal 1:: Pain overall 95% better and 1/10 at worst. Goal Time Frame: 4-6 Weeks Goal 2:: Sleep comfortably without waking at night due to back or knees Goal Time Frame: 4-6 Weeks Goal 3:: I appropriate HEOP to limit future problems( stretch and strengthen core and hips and quads. Goal Time Frame: 4-6 Weeks Goal 4:: LEFS 55 Goal Time Frame: 4-6 Weeks Goal 5:: squat and recover without pain Goal Time Frame: 4-6 Weeks Rehabilitation Potential Physical Therapy Diagnosis: knee pain and inflammation B with tightness and weakness exacerbating Rehabilitation Potential: Fair Anticipated Interventions Patient/Client Instruction: Educate patient on: Condition and Plan of Care For the Purpose of:: To decrease pain, To improve nutrient delivery to tissue, To improve muscle performance and motor function and To increase tolerance to activity/condition/position Therapeutic Exercise to Include: Strength training, Flexibilty training and Active ROM For the Purpose of:: To decrease pain, To increase ROM, To improve nutrient del ian to tissue, To improve muscle performance and motor function and To improve ability of physical actions for home/community/work/leisure Manual Therapy Techniques to Include: Passive ROM and Soft tissue mobilization For the Purpose of:: To decrease pain and To improve nutrient delivery to tissue TENS: Yes Cryotherapy (ice pack, ice massage): Yes For the Purpose of:: To decrease pain, To increase ROM and To improve nutrient delivery to tissue Text: Thank you for the opportunity to evaluate your patient. For Medicare and Medicare HMO plans, please review the plan of care and approve it. It will need to be FAXED BACK to us at [phone] for Medicare purposes. For Medicare only, by signing this I certify the plan of care. Please let me know if there are questions or concerns regarding this plan of c are. Physician Signature: Date:
--- NOTE | 2024-01-26 17:17 | HP.PTDCSUM ---
Discharge Summary D/C summary: It has been my pleasure to treat RAMANDEEP SNOW referred by Dr. Armando Del Rosario DO, with the diagnosis of B knee pain PF OA for a total of 6 visit(s). Discharge Date: 01/26/24 Please see the following information for a summary of their discharge status. Subjective Subjective: Still feels stiff above knees. Knee pain is not bad lately. Steroid shots still helping. No pain with walking. Will get wierd catch in hip. No f/u scheduled with doctor Ta. Overall 87.5% better. Somedays more stiff than others. Pain B knees: Pain Intensity (Out of 10): 0 LB: Pain Intensity (Out of 10): 3 R hip: Pain Intensity (Out of 10): 0 Overall Improvement % Improvement: 87 Objective Objective/Function: Good ROM, able to squat without pain. Walkign without antalgia today. Goals Goal 1:: Pain overall 95% better and 1/10 at worst. Goal Progress: 87 Goal 2:: Sleep comfortably without waking at night due to back or knees Goal Progress: Goal Met Goal 3:: I appropriate HEOP to limit future problems( stretch and strengthen core and hips and quads. Goal Progress: Goal Met Goal 4:: LEFS 55 Goal Progress: Progressing Goal 5:: squat and recover without pain Goal Progress: Goal Met Plan Plan: d/c to HEp D/C Information d/c sentence: If there are questions or concerns regarding this patient's physical therapy, please feel free to call me at [phone]. Thank you for the referral of this patient. Sincerely, Pelon Burns, DPT, OCS, CSCS Balance/Gait/Functional tests Balance/Special Test Scores Lower Extremity Functional Score: 54 Improvement % Improvement: 87
== END 2024-01-26 19:00 | disposition home or self-care (01) ==
LOC: PT 17:00
PROVIDERS: PCP Internal Medicine; Referring Provider Orthopaedic Surgery; Visit Provider Orthopaedic Surgery
DX: M17.0 Bilateral primary osteoarthritis of knee (principal)
CPT/HCPCS: 97110; 97161; 97530

== ENCOUNTER → 2024-03-17 | Outpatient (CLI) | payer OTHER, SELFPAY ==
--- NOTE | 2024-03-17 09:01 | MRI_ITS ---
EXAM: MR LEFT LOWER EXTREMITY WITHOUT INTRAVENOUS CONTRAST, FOOT CLINICAL INDICATION: pain ball of foot and 4th toe, possible neuroma, previous foot xrays TECHNIQUE: Multiplanar and multisequence MR images of the left forefoot without intravenous contrast. COMPARISON: X-ray of the left foot 06/17/2022. FINDINGS: MUSCLES: Unremarkable. No edema or myositis. FLUID: Unremarkable. No joint effusion. PLANTAR FASCIA: Unremarkable. Intact. BONES/JOINTS: Unremarkable. Normal forefoot alignment. No fracture. No bone marrow edema. No joint effusion. OTHER SOFT TISSUES: Unremarkable. OTHER FINDINGS: Old trauma and postsurgical changes 5th ray. MRI/Lower Ext/No Jt/w/o IMPRESSION: 1. Old trauma and postsurgical changes 5th ray. 2. No neuroma identified. No acute abnormality. Electronically Signed: Amando Portillo MD at 4:01 EDT ,
== END | disposition home or self-care (01) ==
LOC: MRI 08:52
PROVIDERS: PCP Internal Medicine; Referring Provider Podiatrist; Visit Provider Podiatrist
DX: G57.62 Lesion of plantar nerve, left lower limb (principal)
CPT/HCPCS: 73718

== ENCOUNTER → 2024-04-12 | Outpatient (CLI) | payer OTHER, SELFPAY | END | disposition home or self-care (01) | LOC: RAD 16:38 | PROVIDERS: PCP Internal Medicine; Referring Provider Orthopaedic Surgery Orthopaedic Surgery of the Spine; Visit Provider Orthopaedic Surgery Orthopaedic Surgery of the Spine | DX: M54.6 Pain in thoracic spine (principal); M54.2 Cervicalgia; M54.50 Low back pain, unspecified | CPT/HCPCS: 72050; 72070; 72110 ==

== ENCOUNTER → 2024-04-23 | Outpatient (CLI) | payer OTHER, SELFPAY ==
--- NOTE | 2024-04-23 16:26 | MRI_ITS ---
INDICATION: pain, RADICULOPATHY BILAT UPPER EXTREMITIES EXAMINATION: MRI - MR Spine Cervical W/O Contrast TECHNIQUE: Multiplanar and multisequence MR images of the cervical spine were performed. IV Contrast Dosage and Agent: None. COMPARISON: None. FINDINGS: VERTEBRAE: Normal vertebral bodies and posterior elements. VERTEBRAL ALIGNMENT: Normal, including the craniocervical junction and cervicothoracic junction. No spondylolisthesis. There is preservation of the normal cervical lordosis. CERVICAL SPINAL CORD: Unremarkable in signal and morphology. Multilevel spondylosis. Central and paracentral disc bulge. Degenerative changes of the bilateral facet joints and uncovertebral joints resulting in spinal canal and foraminal narrowing as described: C2/C3: Normal disc height and morphology. Normal spinal canal and neuroforamina. C3/C4: Normal disc height and morphology. Normal spinal canal and neuroforamina. C4/C5: Mild spinal canal narrowing. C5/C6: Mild spinal canal narrowing. C6/C7: Mild spinal canal narrowing. C7/T1: Normal disc height and morphology. Normal spinal canal and neuroforamina. NECK SOFT TISSUES: No prevertebral soft tissue swelling. There is no cervical adenopathy. MRI/Spine Cervical (Routine) IMPRESSION: Multilevel spondylosis of the cervical spine. Electronically Signed: Beverly Arshad MD at 5:57 EST ,
== END | disposition home or self-care (01) ==
LOC: MRI 16:19
PROVIDERS: PCP Internal Medicine; Referring Provider Orthopaedic Surgery Orthopaedic Surgery of the Spine; Visit Provider Orthopaedic Surgery Orthopaedic Surgery of the Spine
DX: G95.9 Disease of spinal cord, unspecified (principal)
CPT/HCPCS: 72141

== ENCOUNTER 2024-05-11 06:03 | Day surgery (SDC) | payer OTHER, SELFPAY ==
[2024-04-26 10:02] LABS: Absolute Neutrophil Count 3.8 X10^3/uL (2.0-7.7); Basophil# 0.09 X10^3/uL; Basophil% 1.3 % (0-1); Eosinophil# 0.15 X10^3/uL; Eosinophils% 2.1 % (0-5); Hematocrit 42.3 % (37-47); Hemoglobin 13.7 g/dL (12.0-15.0); Lymphocyte % 35.3 % (19-41); Mean Corp Hgb Conc 32.4 g/dL (32-36); Mean Corpuscular Hgb 29.5 pg (27.0-32.0); Mean Platelet Vol. 9.7 fl (6.2-12.0); Monocyte# 0.52 X10^3/uL; Monocyte% 7.3 % (0-10); NRBC Flagged by Analyzer 0 % (0-5); Neutrophil # 3.81 X10^3/uL (2.7-7.7); Neutrophil % 53.9 % (47-70); Platelet Count 300 K/mm3 (150-450); RBC Distribution Width CV 12.9 % (11.6-14.6); RBC Distribution Width SD 42.4 fl (35.1-43.9); Red Blood Count 4.65 M/mm3 (4.2-5.4); White Blood Count 7.1 K/mm3 (4.4-11.0)
[2024-04-26 10:39] LABS: Vitamin D,25 Hydroxy 60.8 ng/mL
[2024-04-26 11:14] LABS: ALB/GLOB Ratio 1.2 RATIO (0.9-2.4); AST(SGOT) 13 U/L (15-37); Alanine Aminotransfer ALT/SGPT 22 U/L (13-56); Albumin, Serum 3.8 g/dL (3.2-5.0); Alkaline Phosphatase 60 U/L (45-117); Anion Gap 9 (5-15); BUN 13 mg/dL (7-18); BUN/Creat Ratio 16.4 RATIO (10-20); Calcium,Total 8.8 mg/dL (8.5-10.1); Chloride 104 mmol/L (98-107); Creatinine, Serum 0.79 mg/dL (0.55-1.02); EST Glomerular Filtration Rate 83 mL/min (>60); Est Glom Filt Rate - Afr Amer 101 mL/min (>60); Globulin 3.1 g/dL (2.2-4.2); Glucose 88 mg/dL (74-106); Potassium 3.5 mmol/L (3.5-5.1); Protein, Total 6.9 g/dL (6.4-8.2); Sodium Level 137 mmol/L (136-145); T4 Free Direct 0.88 ng/dL (0.76-1.46)
[2024-05-11] VITALS (9 sets, daily range): BP systolic 97–113; BP diastolic 69–80; PULSE 49–64; RESP 16; TEMP 36.1–36.8; O2SAT 97–100; BMI 27.6
--- NOTE | 2024-05-11 | BON_PTH ---
PATIENT: RAMANDEEP SNOW LOC: [facility] U#:[id number] AGE/SX: 43/F ROOM: RE05/11/[address]: Dr. Edmund Salazar DPM : 1980 BED: DIS: 05/11/2024 SPEC #: [id number] RECD: 05/11/24 12:29 STATUS: BHARATHI DEYA #: [id number] MAGGI: 05/11/24 00:[address]: Edmund Salazar DEPT: SURGICAL PATHOLOGY RECD BY: Yuri Blue ENTERED: 05/11/24 12:29 SP TYPE: Bone OTHR DR: Dr. Winifred Pedro MD Tissues: Bone of foot, NOS Procedures: Decalcification bone/plaque Surgery Specimen Level III HEADER OPERATION: Hardware removal of left foot, resection of osteophyte PRE-OP DIAGNOSIS: Hardware removal of the left foot, osteophyte exostosis TISSUE SUBMITTED: Bone 5th metatarsal MICROSCOPIC DIAGNOSIS 5th metatarsal bone, bone biopsy: Focal reparative and reactive change. No evidence of osteomyelitis. AM. 05/14/2024 MICROSCOPIC DESCRIPTION Slides are reviewed. GROSS DESCRIPTION Received in fixative is one container labeled with the patient's name and designated Bone 5th metatarsal. The specimen consists of a cylindrical bone. The bone measures 0.7cm for length and 0.2cm for diameter. The specimen is totally submitted in one cassette after decalcification. AM. 05/11/2024 TC:5 CPT:92169,23538
--- NOTE | 2024-05-11 06:30 | RAD_ITS ---
EXAM: FL FLUOROSCOPY < 1 HOUR CLINICAL INDICATION: PAIN TECHNIQUE: Fluoroscopic images performed in multiple projections. Fluoroscopic guidance was provided by a physician. Total time: 19 seconds. Total dose: 0.1161 mGy. COMPARISON: No relevant prior studies available. FINDINGS AND RAD/Foot 2 Views IMPRESSION: Intraoperative fluoroscopy. Refer to the operative note for complete details. Electronically Signed: Danial Bonilla DO at 18:43 EST ,
--- NOTE | 2024-05-11 07:17 | PCM.PRE.AN2 ---
ASA Classification* ASA Classification ASA Classification: 2 Assessment & Plan Anesthesia* Anesthesia Assessment Anesthesia Assessment: Discussed sedation and/or anesthesia options, risks, benefits, and alternatives with patient/parents/legal guardian/POA. Questions invited. The patient/parents/legal guardian/POA seems to understand and agrees to proceed with anesthesia plan. Reviewed the physical assessment, medical history, allergy history and patient home medications list prior to surgery/procedure/anesthetic and documented any changes. Performed airway and anesthesia risk assessments. Anesthesia Type Anesthesia Type: MAC Anesthesia Focused Assessment* Temperature: 98 F Pulse Rate: 64 Blood Pressure: 112/79 Respiratory Rate: 16 Pulse Ox: 100 Airway Assessment Mouth opens: >3 cm Mallampati Score: II Focused Labs Anesthesia Preop lab: CBC WBC 7.1 K/mm3 (4.4-11.0) 04/26/24 08:22 RBC 4.65 M/mm3 (4.2-5.4) 04/26/24 08:22 Hgb 13.7 g/dL (12.0-15.0) 04/26/24 08:22 Hct 42.3 % (37-47) 04/26/24 08:22 Plt Count 300 K/mm3 (150-450) 04/26/24 08:22 CHEMISTRY Potassium 3.5 mmol/L (3.5-5.1) 04/26/24 08:22 Sodium 137 mmol/L (136-145) 04/26/24 08:22 Magnesium 2.2 mg/dL (1.6-2.6) 06/10/22 07:58 Phosphorus 3.2 mg/dL (2.5-4.9) 11/11/23 08:20 BUN 13 mg/dL (7-18) 04/26/24 08:22 Creatinine 0.79 mg/dL (0.55-1.02) 04/26/24 08:22 Glucose 88 mg/dL (74-106) 04/26/24 08:22 TSH 3.190 uIU/mL (0.358-3.740) 04/26/24 08:22 COAG PT 13.1 SECONDS (11.7-14.9) 04/10/15 09:17 Tst Clinic Negative 01/22/21 08:43 Pre-Assessment Diagnosis/Proposed Procedure Planned Operative Procedure(s): hardware removal left foot Anesthesia History 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 When Was Last Pacemaker Check QUESTION #4 FULL TEXT: You/Your Family Experience fever (hyperthermia) with Anesthesia Last Oral Intake Last Oral intake: Last Oral Intake NPO since 05:15 05/11/24 06:22 Meds taken in AM with sips of Yes 05/11/24 06:22 water? Meds patient instructed to take am of surgery PONV PONV - assistant warehouse manager: PONV - assistant warehouse manager Female Yes 05/07/24 13:11 HX of Motion Sickness Yes 05/07/24 13:11 HX of N/V After Surgery Yes 05/07/24 13:11 Non-Smoker Yes 05/07/24 13:11 Duration of Surgery greater Yes 05/07/24 13:11 than 60 minutes Number of Risk Factors 5 05/07/24 13:11 PONV Score Severe Risk 05/07/24 13:11 Height & Weight Height & Weight: Anesthesia: Height & Weight Height 5 ft 2 in 05/11/24 06:22 Weight: 68.5 kg 05/11/24 06:22 Body Mass Index (BMI) 27.6 05/11/24 06:22 Respiratory Assessment Respiratory Assessment - assistant warehouse manager: Respiratory Tract Infection Hx - assistant warehouse manager Hx Respiratory Tract Infection No 05/07/24 13:11 STOP Sleep Apnea STOP Sleep Apnea - assistant warehouse manager: STOP Sleep Apnea - assistant warehouse manager Hx Hypertension Yes: controlled with med 05/07/24 13:11 Hx Sleep Apnea No 05/07/24 13:11 CPAP No 05/07/24 13:11 BIPAP No 05/07/24 13:11 Do you snore loudly (louder No 05/07/24 13:11 than talking or can be heard Do you often feel tired/ No 05/07/24 13:11 fatigued/ sleepy during daytime? Has anyone observed you stop No 05/07/24 13:11 breathing during sleep? STOP Results Negative 05/07/24 13:11 QUESTION #5 FULL TEXT : Do you snore loudly (louder than talking or can be heard through closed doors)? Tobacco Use History Tobacco Use History - assistant warehouse manager: Tobacco Use History - assistant warehouse manager Tobacco Use Smoking Status Never smoker 05/07/24 13:11 Hx Tobacco Use No 05/07/24 13:11 Years Smoking Packs Smoked per Day Smoking Cessation Date was within the last 15 years Hx Smoking Cessation Date Hx Smoking Cessation Counseling Hematologic Medial History Hematologic Hx - assistant warehouse manager: Hematologic Medical Hx - outside sales associate Hx of Blood Transfusion No 05/07/24 13:11 Hx of Transfusion in last 3 No 05/07/24 13:11 Months Date of Last Transfusion (if within last 3 months) Ever experience any problems No 05/07/24 13:11 with transfusion(s)? Specify any problems Hx of Preganancy in last 3 No 05/07/24 13:11 Months Nurse Filling Out Transfusion DSCHRIBER 05/07/24 13:11 & Questions: Date: 05/07/24 05/07/24 13:11 Time: 13:12 05/07/24 13:11 Patient unable to answer at this time (ie. confused, unrespo /Reproduction History /Reproductive History - assistant warehouse manager: /Reproductive Hx- assistant warehouse manager Hx Now No 05/07/24 13:11 Gestational Age (in weeks): EDC: Hx Hx Para Hx Section SAB No 05/07/24 13:11 Active Medications Active Medications: Current Medications Generic Name Dose Route Start Last Admin Trade Name Freq PRN Reason Stop Dose Admin Cefazolin Sodium 2 gm/ N/A 20 mls @ 400 mls/hr 05/11/24 07:30 IV 05/11/24 07:32 PREOP ONE [facility] Medical History Depression Alcohol use Low iron DDD (degenerative disc disease), cervical Gastric reflux History of pain when walking Preop exam for internal medicine Hyperlipidemia Screening for thyroid disorder Arthritis Chronic fatigue Wears contact lenses Back pain Restless legs History of IBS Non-smoker Hypertension Preoperative evaluation to rule out surgical contraindication Vitamin D deficiency UTI (urinary tract infection) Preventative health care Insomnia Migraines IBS (irritable bowel syndrome) Hypertension Frequent UTI HSV (herpes simplex virus) infection Condyloma HPV test positive Shingles Constipation Home Medications ?Medication ?Instructions ?Recorded ?Last Taken ?Type ibuprofen 400 mg tablet 400 mg PO Q6H PRN pain #30 tabs 03/06/21 Unknown Rx ferrous sulfate 325 mg (65 mg 325 mg PO Q OTHER DAY 08/09/22 Unknown History iron) tablet,delayed release cholecalciferol (vitamin D3) 25 50 mcg PO DAILY 01/31/23 Unknown History mcg (1,000 unit) capsule (Vitamin D3) bupropion HCl 150 mg 24 hr tablet, 150 mg PO QAM #30 tabs 04/16/24 05/11/24 Rx extended release (Wellbutrin XL) losartan 50 mg-hydrochlorothiazide 1 tab PO QDAY #90 tabs 04/16/24 05/11/24 Rx 12.5 mg tablet multivitamin 1 tab PO QDAY 04/16/24 Unknown History Lactobacillus acidophilus 250 500 mmu cells PO DAILY 05/07/24 Unknown History million cell capsule (Probiotic Acidophilus) esomeprazole magnesium 20 mg 20 mg PO DAILY 05/11/24 Unknown History capsule,delayed release (Acid Mattress Stuffer (esomeprazole)) Allergy/AdvReac Type Severity Reaction Status Date / Time hydromorphone (From Dilaudid) Allergy Rash Verified 05/11/24 06:20 isopropyl alcohol (From Allergy Hives Verified 05/11/24 06:20 ChloraPrep Clear) chlorhexidine AdvReac Intermediate rash Verified 05/11/24 06:20 Family History Other Anxiety Arthritis Breast cancer Depression Diabetes Heart disease Hyperlipemia Hypertension Surgical History H/O bilateral salpingectomy Hx of dilation and curettage History of removal of retained hardware History of LAVH History of bunionectomy of both great toes Social History Smoking Status: Never smoker alcohol intake: current alcohol intake frequency: a few times a week Alcohol type: wine details: social substance use type: does not use caffeine: Yes what type of physical activity do you participate in: walking seatbelt use: always do you feel safe at home: Yes additional social history: [employer]- [employer]. Patient works at [employer] Review of Systems (Anesthesia) ROS Narrative System reviewed and no additional complaints, except as documented.
[2024-05-11] MEDS: Cefazolin 2 GM in Syringe IV (07:42)
[2024-05-11] MEDS: dexAMETHasone 4 MG/ML Vial (09:10)
[2024-05-11] MEDS: Bupivacaine Mpf 0.5% 30 ML VIAL (09:10)
--- NOTE | 2024-05-11 09:40 | RAD_ITS ---
EXAM: XR LEFT FOOT COMPLETE, 3 OR MORE VIEWS CLINICAL INDICATION: post op TECHNIQUE: Frontal, lateral and oblique views of the left foot. COMPARISON: Left foot MRI, 03/17/2024. FINDINGS: BONES/JOINTS: Status post explantation of hardware involving the first tarsometatarsal joint and proximal metatarsal. Lucencies due to previously identified screws are present. Periosteal reaction suggesting further healing. No definite acute fracture. SOFT TISSUES: Soft tissue swelling and minimal soft tissue emphysema. No radiopaque foreign body. RAD/Foot min 3 Views IMPRESSION: 1. Soft tissue swelling and minimal soft tissue emphysema. 2. Status post explantation of hardware involving the first tarsometatarsal joint and proximal metatarsal. Lucencies due to previously identified screws are present. Periosteal reaction suggesting further healing. No definite acute fracture. Electronically Signed: Danial Bonilla DO at 18:18 EST ,
--- NOTE | 2024-05-11 09:41 | OP.PCM_ITS ---
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, left foot Post-Operative Diagnosis: Same Surgery/Procedure Performed: Hardware removal left foot Resection of exostosis/osteophyte left 5th metatarsal Corticosteroid injection left 3rd intermetatarsal space and 4th toe translator and interpreter: No Type of Anesthesia: Local MAC RN Documented Start/Stop Times: Operation Date: 05/11/24 07:30 Case Time Into Pre-Op 05/11/24 06:10 Out of Pre-Op 05/11/24 07:29 Anesthesia Start 05/11/24 07:30 Into Room 05/11/24 07:30 Procedure Start 05/11/24 07:53 Procedure End 05/11/24 09:34 Anesthesia End 05/11/24 09:39 Out of Room 05/11/24 09:39 Into Recovery 05/11/24 09:41 Into Phase II Recovery 05/11/24 10:11 Out of Recovery 05/11/24 10:11 Out of Phase II 05/11/24 11:24 Procedure Start Time: 07:53 Procedure Stop Time: 09:34 Select all DRAINS/GRAFTS/IMPLANTS that apply: None Estimated Blood Loss: 3mL Specimen collected: Yes Description of specimen(s) removed: Bone (exotosis/osteophyte) left 5th metatarsal Description of surgery: Indications: 43 year old female with history of left 1st metatarsal cuneiform joint arthrodesis bunionectomy and Tailor's bunionectomy in the past.. Foot was doing well, but now has symptomatic hardware, also a exostosis 5th metatarsal and symptoms consistent with neuroma left 3rd intermetatarsal space going to 4th toe. She has pain to the sites with shoes and ambulation. She would like to proceed with the procedures as noted above. This was discussed with her in detail, reviewed the procedures, as well as the rationale of the procedures with her in detail. We discussed and reviewed the possible benefits vs risks/potential complications. The estimated healing/recovery time and protocol were reviewed with her in detail. Reviewed the goals and the expectations. She expressed understanding and agreement and elected to proceed forward with surgical intervention as noted above. The consent forms were reviewed with her and she freely signed them. All of her questions were answered. No guarantees or warrantees were given nor implied. She was cleared from medical standpoint to proceed with surgery. Operative Procedure: The patient was brought back into the operating room and was placed on the operating table in the supine position. Patient was carefully secured to the operating room table with a safety belt around her waist. A time out was performed and the patient was properly identified and the surgical plan was confirmed. The patient received IV antibiotic prophylaxis, 2g of Ancef. The patient received MAC anesthesia per the anesthesia team. A well padded pneumatic tourniquet was applied around her left ankle. A total of 16mL of 0.5% Bupivacaine plain was given as a local block around the 1st ray and 5th ray on her left foot after the overlying skin was cleansed with 70% Isopropyl alcohol. The left foot was scrubbed, prepped, and draped in the usual aseptic fashion. The left foot was elevated for several minutes and the left ankle pneumatic tourniquet was inflated to 250mmHg. Hardware Removal: A linear longitudinal skin incision was medially along the medial 1st metatarsal cuneiform joint fusion site - directly over the previous incision. This was done using a 15 blade. Careful dissection was completed down to the hardware. The screws and the plate were removed in toto without complication. The two compression screws across the fusion site independent of the plate were identified and removed as well, there was a significant amount of bone over the head of the screw and bonded to the screws which was gently re moved which did leave a moderate void of bone to the base of the 1st metatarsal into the 1st cuneiform. Due to the void the site was packed with cancellous bone chips. Hardware removal was checked and confirmed with intraoperative fluoroscopy. The arthrodesis site was rigid and very stable, it was fused. The site was flushed with copious amounts of normal saline solution. Tissues were healthy and viable at this time. The skin was reapproximated using 4-0 Monocryl. Cavilon was painted to the edges of the sutured skin incision and steristrips were applied across the sutured skin incision. Excision of Exostosis/Osteophyte: Attention was directed to the left 5th metatarsal where an exostosis/osteophyte was noted dorsal laterally. A linear skin incision was made using a 15 blade overlying the exostosis. Careful dissection was completed down to the prominent exostosis and was resected using a bone cutting rongeur and smoothed with a powered saggital saw. The excised bone was hard and white, no necrosis noted, was sent to pathology as specimen. The remaining tissues were healthy and viable at this time. The site was flushed with copious amounts of normal saline solution. The skin was reapproximated using 4-0 Monocryl. Cavilon was painted to the edges of the sutured skin incision and steristrips were applied across the sutured skin incision. Corticosteroid Injection left 3rd intermetatarsal space and 4th toe nerve: An injection was completed to the left 3rd intermetatarsal nerve root and 4th toe using 2mL of 0.5% Bupivacaine and 1mL (4mg) of Dexamethasone phosphate. The left ankle pneumatic tourniquet was deflated (total tourniquet time was 99 minutes) and there was noted to be return of normal warmth and perfusion to the foot and to all toes on the foot with normal temperature gradient and CFT < 2 seconds to all toes. A dressing was applied which consisted of Betadine solution, adaptic, 4x4 gauze, Kerlix, and an atilio bandage. All vital structures including all vital neurovascular and tendon structures were properly identified, protected, and retracted as necessary throughout the above operative procedures. The patient tolerated the above operative procedures well at the anesthesia well with no complication. The patient was transported from the operating room to the recovery room with vital signs stable and in good condition. Post operative orders were placed. Post operative instructions were reviewed with her and her significant other Yan. No weightbearing left foot foot, keep left foot elevated for at least 50 minutes of every hour, keep dressing and splint clean, dry and intact. Hydrocodone/Acetaminophen was prescribed for post operative pain control. Post operative xrays were obtained in the recovery room (DP, Oblique, and lateral foot) - s/p hardware removal without complication. Surgical Findings: See Above Complications Complications: No
--- NOTE | 2024-05-11 09:43 | DCINST_ITS ---
Discharge Instructions Diet Discharge Diet: Light diet - advance as tolerated DC O2, CPAP, BIPAP needs Additional Home O2 Discharge instructions: No Dressing / Incision Discharge Activity: May Not Drive and Use Crutches Weight Bearing Status: No weight bearing (No weightbearing left foot) Keep extremity elevated above heart level: Operative Extremity (Keep left foot elevated with pillows for at least 50 minutes of every hour. Move hip and knee for a few minutes of every waking hour.) and Left Leg Dressing / Incision Call your doctor if your incision/area has: Continuous Slow Oozing, Sudden Increased Bleeding and Foul Smelling Discharge Call your doctor if you observe: Fever of 101 or Higher, Coldness, Increased Pain, Shortness of breath, Chest pain, Increased palpitations (irregular heartbeat), Calf discomfort and Uncontrolled pain Cleanse incision/area with: Keep Dressing Clean & Dry Follow Up Care Please Follow Up With: Edmund Salazar DPM When: in 1 week at [facility], follow up sooner if needed Test Results: Test results from this visit will be discussed in further detail at your follow- up appointment, if applicable. Discharge Plan Admission Attending Provider: Edmund Salazar Primary Care Provider: Winifred Pedro Consulting Providers: Winifred Pedro Instructions Print Language: Gambian Discharge Orders/Prescriptions Prescriptions: New hydrocodone-acetaminophen 5-300 mg tablet 1 tab PO Q6H PRN (Reason: pain) 3 Days Qty: 18 0RF No Action ferrous sulfate 325 mg (65 mg iron) tablet,delayed release (DR/EC) 325 mg PO Q OTHER DAY cholecalciferol (vitamin D3) [Vitamin D3] 25 mcg (1,000 unit) capsule 50 mcg PO DAILY multivitamin Tablet 1 tab PO QDAY losartan-hydrochlorothiazide 50-12.5 mg tablet 1 tab PO QDAY Qty: 90 1RF bupropion HCl [Wellbutrin XL] 150 mg tablet extended release 24 hr 150 mg PO QAM Qty: 30 1RF ibuprofen 400 mg tablet 400 mg PO Q6H PRN (Reason: pain) Qty: 30 0RF Probiotic Acidophilus 250 million cell capsule 500 mmu cells PO DAILY esomeprazole magnesium [Acid Oil Spraying Machine Operator (esomeprazole)] 20 mg capsule,delayed rel ease(DR/EC) 20 mg PO DAILY Referrals / Follow Up: Winifred Pedro MD [Primary Care Provider] - Disposition Disposition (needs filled in before D/C Order can be placed): Home, Self Care
--- NOTE | 2024-05-11 09:43 | PCM.POST.ANE ---
Anesthesia: Postop Eval I Current Vital Signs Temperature: 96.9 F Pulse Rate: 60 Blood Pressure: 97/75 Respiratory Rate: 16 Pulse Ox: 98 Oxygen Delivery Method: Room Air Assessment Airway patent: Yes Spontaneous unlabored respirations: Yes Mental status: Awake nausea: No Vomiting: No Anesthesia Complication: No Fluid Hydration Crystalloid volume administer (ml): 250 Total IV fluid infused: 250 Progress Note Anesthesia document: Postop Eval 1 completed: Yes
--- NOTE | 2024-05-11 12:27 | POSTOPAN2_ITS ---
Anesthesia Postop Eval I Sum Postop Eval Completion status Anesthesia document: Postop Eval 1 completed: Yes Anesthesia Postop Eval I Summary Anesthesia Postop Eval I Summary: Anesthesia Postop Eval I: Assessment Summary Airway patent Yes 05/11/24 09:45 [email or web address] Spontaneous unlabored Yes 05/11/24 09:45 [email or web address] respirations Mental status Awake 05/11/24 09:45 [email or web address] nausea No 05/11/24 09:45 [email or web address] Vomiting No 05/11/24 09:45 [email or web address] Anesthesia Postop Eval I: Fluid Summary Crystalloid volume administer 250 05/11/24 09:45 [email or web address] (ml) Colloids volume administered ( ml) Blood Product volume administered (ml) Total IV fluid infused 250 05/11/24 09:45 [email or web address] Anesthesia Postop Eval I: Summary Notes Anesthesia Complication No 05/11/24 09:45 [email or web address] Anesthesia Complication Comment: Post-operative progress note Anesthesia: Postop Eval II Evaluation Mental status: Awake Pain Level: 2 nausea: No Vomiting: No
--- NOTE | 2024-05-11 12:27 | PCM.POSTANE2 ---
Anesthesia Postop Eval I Sum Postop Eval Completion status Anesthesia document: Postop Eval 1 completed: Yes Anesthesia Postop Eval I Summary Anesthesia Postop Eval I Summary: Anesthesia Postop Eval I: Assessment Summary Airway patent Yes 05/11/24 09:45 [email or web address] Spontaneous unlabored Yes 05/11/24 09:45 [email or web address] respirations Mental status Awake 05/11/24 09:45 [email or web address] [email or web address] nausea No 05/11/24 09:45 [email or web address] [email or web address] Vomiting No 05/11/24 09:45 [email or web address] Anesthesia Postop Eval I: Fluid Summary Crystalloid volume administer 250 05/11/24 09:45 [email or web address] (ml) Colloids volume administered ( ml) Blood Product volume administered (ml) Total IV fluid infused 250 05/11/24 09:45 [email or web address] Anesthesia Postop Eval I: Summary Notes Anesthesia Complication No 05/11/24 09:45 [email or web address] Anesthesia Complication Comment: Post-operative progress note Anesthesia: Postop Eval II Evaluation Mental status: Awake Pain Level: 2 nausea: No Vomiting: No
== END 2024-05-11 11:25 | disposition home or self-care (01) ==
LOC: SDC 06:03 → AC 06:03
PROVIDERS: PCP Internal Medicine; Referring Provider Podiatrist; Visit Provider Podiatrist
PROC: (CPT 28113; principal; 2024-05-11 07:15)
DX: Z47.2 Encounter for removal of internal fixation device (principal); R53.82 Chronic fatigue, unspecified; Z87.440 Personal history of urinary (tract) infections; I10 Essential (primary) hypertension; E66.89 Other obesity not elsewhere classified; K21.9 Gastro-esophageal reflux disease without esophagitis; E61.1 Iron deficiency; Z90.79 Acquired absence of other genital organ(s); Z90.710 Acquired absence of both cervix and uterus; K58.9 Irritable bowel syndrome, unspecified; F41.9 Anxiety disorder, unspecified; F32.9 Major depressive disorder, single episode, unspecified; M54.50 Low back pain, unspecified; E55.9 Vitamin D deficiency, unspecified
CPT/HCPCS: 28113; 20680; 64455; 01480; 36415; 73620; 73630; 76000; 80053; 82306; 84439; 84443; 84481; 85025; 88304; 88311; A4216; J2405

== ENCOUNTER 2024-07-25 16:30 | Outpatient (RCR) | payer OTHER, SELFPAY ==
--- NOTE | 2024-05-24 15:18 | HP.PTEVAL_ITS ---
Patient's Visit Information Visit Information Visit Information: RAMANDEEP SNOW is a 43 year old F referred to Physical Therapy by Dr. Mj Kingsley MD with a diagnosis of CERVICAL DISC DEGENERATION ,MID CERVICAL REGION. Date of Evaluation: 05/24/24 Physical Therapist: Ender Chappell, PT, Cert MDT, OCS Visit Plan Frequency: 2x /Week Duration: 3 Weeks Plan: PT INTERVENTIONS CERVICAL ROM/FLEXABILITY,MANUAL THERAPY STM /TRACTION ,STRENGTHENING ,POSTURE TRAINING AND US /ESTIM PRN Subjective Subjective: This 43 y/o female presents to physical therapy with cervical pain with radicular symptoms. Patient has cervical pain for ~ 2 years and worse in past [address] Kingsley had MRI DDD and recommended PT and inbuprofron 800 mg and had x-rays showed intervertebral disc height loss is worst at C5-C6. also recommended pain management will see tomorrow. Recently had foot surgery to remove hardware 2 weeks. Patient pain located cervical spine and occiput with CASTRO. Aggravating factors sitting at computer ,bending ,driving ,lifting heavy. Alleviation factors stretching and medication. Patient condition affects QOL and function/jobs demands. Patient goals to decrease pain and manage. SOCIAL: single VOCATION: [employer] Denies paresthesia/tingling occasional fingers. Patient has some dizziness /nausea,no tinnitus. Patient symptoms affects sleeping ,Patient 2007 slipped on steps. Pain Bilateral Neck: Pain Intensity (Out of 10): 6 Pain Intensity Range: 10 Objective Objective: POSTURE: rounded head shoulders forward PALAPTION: tender UT /levator mod tender NEURO: denies paresthesia/tingling ,reflexes C5-6-7 2/3 BUE: WFL MMT: grossly 4/5 CERVICAL ROM: flexion WFL ,extension min loss ,lateral flexion rotation min loss ,retraction WFL GAIT : patient ambulates with crutches with boot with WBAT LE from surgery Special Tests C/S Radiculapathy - Left Upper limb tension test: Negative C/S Radiculapathy - Right Upper limb tension test: Negative C/S Radiculapathy - Left Spurlings: Negative C/S Radiculapathy - Right Spurlings: Negative C/S Radiculapathy - Left Cervical distraction: Negative C/S Radiculapathy - Right Cervical distraction: Negative C/S Radiculapathy - Left Relief test: Negative C/S Radiculapathy - Right Relief test: Negative C/S Radiculapathy - Valsalva: Negative Sharp Gregory: Negative Vertebral Artery Test: Negative Alar Ligament Test: Negative Balance/Special Test Scores Oswestry Neck Score: 18 Goals Goal 1:: Patient to be I with HEP for cervical Goal Time Frame: 4-6 Weeks Goal 2:: Patient to improve cervical ROM for function of recovery rotation for driving . Goal Time Frame: 4-6 Weeks Goal 3:: Patient to demonstrate 50% improvement with less pain and CASTRO Goal Time Frame: 4-6 Weeks Goal 4:: Patient to improve neck oswestry score by 5 points to improve QOL and function Goal Time Frame: 4-6 Weeks Goal 5:: Patient be able to work 8 hrs min p ain Goal Time Frame: 4-6 Weeks Rehabilitation Potential Physical Therapy Diagnosis: This patient has cervical pain with DDD from MRI with pain with positioning and motion testing thus benefit from skilled PT Rehabilitation Potential: Good Anticipated Interventions Patient/Client Instruction: Educate patient on: Condition and Plan of Care For the Purpose of:: To decrease pain, To increase ROM, To improve muscle performance and motor function, To improve ability to perform ADL's, To increase tolerance to activity/condition/position, To improve ability of physical actions for home/community/work/leisure, To improve health of tissue, To decrease soft tissue restriction, To increase flexibility/ROM and To prevent re-injury Therapeutic Exercise to Include: Strength training, Body mechanics, Postural training, Flexibilty training and Active ROM For the Purpose of:: To decrease pain, To increase ROM, To improve muscle performance and motor function, To improve ability to perform ADL's, To increase tolerance to activity/condition/position, To improve ability of physical actions for home/community/work/leisure, To increase flexibility/ROM and To improve tolerance to ADL's Manual Therapy Techniques to Include: Mobilization and Soft tissue mobilization Comment: CERVICAL TRACTION For the Purpose of:: To decrease pain, To increase ROM, To improve muscle performance and motor function, To improve ability to perform ADL's, To increase tolerance to activity/condition/position, To improve ability of physical actions for home/community/work/leisure, To improve health of tissue, To decrease soft tissue restriction and To increase flexibility/ROM TENS: Yes IF ES: Yes Cryotherapy (ice pack, ice massage): Yes Thermo therapy (hot pack): Yes Ultrasound (thermal/non thermal): Yes For the Purpose of:: To decrease pain, To increase ROM, To improve nutrient delivery to tissue, To increase oxygenation perfusion, To improve health of tissue and To decrease soft tissue restriction Text: Thank you for the opportunity to evaluate your patient. For Medicare and Medicare HMO plans, please review the plan of care and approve it. It will need to be FAXED BACK to us at [phone] for Medicare purposes. For Medicare only, by signing this I certify the plan of care. Please let me know if there are questions or concerns regarding this plan of care. Physician Signature: Date:
--- NOTE | 2024-07-25 17:12 | HP.PTDCSUM ---
Discharge Summary D/C summary: It has been my pleasure to treat RAMANDEEP SNOW referred by Dr. Mj Kingsley MD, with the diagnosis of CERVICAL DISC DEGENERATION ,MID CERVICAL REGION for a total of 11 visit(s). Discharge Date: 07/25/24 Please see the following information for a summary of their discharge status. Subjective Subjective: Seen pain management sent note Switch on different muscle tizanidine Stopped baclofen NO CASTRO . Pain is better Tried massage at [facility] Sleeping good Pain Bilateral Neck: Pain Intensity (Out of 10): 1 CASTRO: Pain Intensity (Out of 10): 1 Overall Improvement % Improvement: 85 Objective Objective/Function: POSTURE: rounded head shoulders forward PALAPTION: tender UT /levator mod tender NEURO: denies paresthesia/tingling ,reflexes C5-6-7 2/3 BUE: WFL MMT: grossly 4/5 CERVICAL ROM: flexion WFL ,extension WFL ,lateral flexion rotation WFL ,retraction WFL Goals Goal 1:: Patient to be I with HEP for cervical Goal Progress: Goal Met Goal 2:: Patient to improve cervical ROM for function of recovery rotation for driving . Goal Progress: Goal Met Goal 3:: Patient to demonstrate 70% improvement with less pain and CASTRO ( NEW GOAL) Goal Progress: Goal Met Goal 4:: Patient to improve neck oswestry score by 5 points to improve QOL and function Goal Progress: Goal Met Goal 5:: Patient be able to work 8 hrs min pain and CASTRO Goal Progress: Goal Met Plan Plan: D/C TO HEP D/C Information Discharge Comments: HEP d/c sentence: If there are questions or concerns regarding this patient's physical therapy, please feel free to call me at [phone]. Thank you for the referral of this patient. Sincerely, Ender Chappell, PT, Cert MDT, OCS Balance/Gait/Functional tests Balance/Special Test Scores Oswestry Neck Score: 18 Improvement % Improvement: 85
== END 2024-07-25 19:00 | disposition home or self-care (01) ==
LOC: PT 16:30
PROVIDERS: PCP Internal Medicine; Referring Provider Orthopaedic Surgery Orthopaedic Surgery of the Spine; Visit Provider Orthopaedic Surgery Orthopaedic Surgery of the Spine
DX: M50.320 Other cervical disc degeneration, mid-cervical region, unspecified level (principal)
CPT/HCPCS: 97035; 97110; 97140; 97162; 97530

== ENCOUNTER 2024-09-14 13:04 | Day surgery (SDC) | payer OTHER, SELFPAY ==
[2024-09-14] VITALS (7 sets, daily range): BP systolic 123–145; BP diastolic 81–97; PULSE 67–85; RESP 16–18; TEMP 36.4–36.7; O2SAT 95–100; BMI 28.7
--- NOTE | 2024-09-14 13:06 | PCM.PRE.AN2 ---
ASA Classification* ASA Classification ASA Classification: 2 Assessment & Plan Anesthesia* Anesthesia Assessment Anesthesia Assessment: Discussed sedation and/or anesthesia options, risks, benefits, and alternatives with patient/parents/legal guardian/POA. Questions invited. The patient/parents/legal guardian/POA seems to understand and agrees to proceed with anesthesia plan. Reviewed the physical assessment, medical history, allergy history and patient home medications list prior to surgery/procedure/anesthetic and documented any changes. Performed airway and anesthesia risk assessments. Anesthesia Type Anesthesia Type: MAC Anesthesia Focused Assessment* Airway Assessment Mouth opens: >3 cm Mallampati Score: II Focused Labs Anesthesia Preop lab: CBC WBC 7.1 K/mm3 (4.4-11.0) 04/26/24 08:22 04/26/24 RBC 4.65 M/mm3 (4.2-5.4) 04/26/24 08:22 04/26/24 Hgb 13.7 g/dL (12.0-15.0) 04/26/24 08:22 04/26/24 Hct 42.3 % (37-47) 04/26/24 08:22 04/26/24 Plt Count 300 K/mm3 (150-450) 04/26/24 08:22 04/26/24 CHEMISTRY Potassium 3.5 mmol/L (3.5-5.1) 04/26/24 08:22 04/26/24 Sodium 137 mmol/L (136-145) 04/26/24 08:22 04/26/24 Magnesium 2.2 mg/dL (1.6-2.6) 06/10/22 07:58 06/10/22 Phosphorus 3.2 mg/dL (2.5-4.9) 11/11/23 08:20 11/11/23 BUN 13 mg/dL (7-18) 04/26/24 08:22 04/26/24 Creatinine 0.79 mg/dL (0.55-1.02) 04/26/24 08:22 04/26/24 Glucose 88 mg/dL (74-106) 04/26/24 08:22 04/26/24 TSH 3.190 uIU/mL (0.358-3.740) 04/26/24 08:22 04/26/24 COAG PT 13.1 SECONDS (11.7-14.9) 04/10/15 09:17 04/10/15 Tst Clinic Negative 01/22/21 08:43 01/22/21 Pre-Assessment Diagnosis/Proposed Procedure Planned Operative Procedure(s): EGD Anesthesia History 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 When Was Last Pacemaker Check QUESTION #4 FULL TEXT: You/Your Family Experience fever (hyperthermia) with Anesthesia Last Oral Intake Last Oral intake: Last Oral Intake NPO since Meds taken in AM with sips of water? Meds patient instructed to take am of surgery PONV PONV - voice data communications engineer: PONV - voice data communications engineer Female Yes 09/10/24 14:06 HX of Motion Sickness No 09/10/24 14:06 HX of N/V After Surgery No 09/10/24 14:06 Non-Smoker Yes 09/10/24 14:06 Duration of Surgery greater No 09/10/24 14:06 than 60 minutes Number of Risk Factors 2 09/10/24 14:06 PONV Score Moderate Risk 09/10/24 14:06 Height & Weight Height & Weight: Anesthesia: Height & Weight Height 5 ft 2 in 08/20/24 10:32 Respiratory Assessment Respiratory Assessment - voice data communications engineer: Respiratory Tract Infection Hx - voice data communications engineer Hx Respiratory Tract Infection No 09/10/24 14:06 STOP Sleep Apnea STOP Sleep Apnea - voice data communications engineer: STOP Sleep Apnea - voice data communications engineer Hx Hypertension Yes: controlled with med 09/10/24 14:06 Hx Sleep Apnea No 09/10/24 14:06 CPAP No 09/10/24 14:06 BIPAP No 09/10/24 14:06 Do you snore loudly (louder No 09/10/24 14:06 than talking or can be heard Do you often feel tired/ No 09/10/24 14:06 fatigued/ sleepy during daytime? Has anyone observed you stop No 09/10/24 14:06 breathing during sleep? STOP Results Negative 09/10/24 14:06 QUESTION #5 FULL TEXT : Do you snore loudly (louder than talking or can be heard through closed doors)? Tobacco Use History Tobacco Use History - voice data communications engineer: Tobacco Use History - voice data communications engineer Tobacco Use Smoking Status Never smoker 09/10/24 14:06 Hx Tobacco Use No 09/10/24 14:06 Years Smoking Packs Smoked per Day Smoking Cessation Date was within the last 15 years Hx Smoking Cessation Date Hx Smoking Cessation Counseling Hematologic Medial History Hematologic Hx - voice data communications engineer: Hematologic Medical Hx - patient account liaison Hx of Blood Transfusion No 09/10/24 14:06 Hx of Transfusion in last 3 No 09/10/24 14:06 Months Date of Last Transfusion (if within last 3 months) Ever experience any problems No 09/10/24 14:06 with transfusion(s)? Specify any problems Hx of Preganancy in last 3 No 09/10/24 14:06 Months Nurse Filling Out Transfusion VCHRISTIN 09/10/24 14:06 & Questions: Date: 09/10/24 09/10/24 14:06 Time: 14:07 09/10/24 14:06 Patient unable to answer at this time (ie. confused, unrespo /Reproduction History /Reproductive History - voice data communications engineer: /Reproductive Hx- voice data communications engineer Hx Now No 09/10/24 14:06 Gestational Age (in weeks): EDC: Hx Hx Para Hx Section SAB No 09/10/24 14:06 PFSH Medical History Left upper quadrant abdominal pain Depression Alcohol use Low iron DDD (degenerative disc disease), cervical Gastric reflux History of pain when walking Preop exam for internal medicine Hyperlipidemia Screening for thyroid disorder Arthritis Chronic fatigue Wears contact lenses Back pain Restless legs History of IBS Non-smoker Hypertension Preoperative evaluation to rule out surgical contraindication Vitamin D deficiency UTI (urinary tract infection) Preventative health care Insomnia Migraines IBS (irritable bowel syndrome) Hypertension Frequent UTI HSV (herpes simplex virus) infection Condyloma HPV test positive Shingles Constipation Home Medications ?Medication ?Instructions ?Recorded ?Last Taken ?Type ibuprofen 400 mg tablet 400 mg PO Q6H PRN pain #30 tabs 03/06/21 Unknown Rx ferrous sulfate 325 mg (65 mg 325 mg PO Q OTHER DAY 08/09/22 Unknown History iron) tablet,delayed release cholecalciferol (vitamin D3) 25 50 mcg PO DAILY 01/31/23 Unknown History mcg (1,000 unit) capsule (Vitamin D3) multivitamin 1 tab PO QDAY 04/16/24 Unknown History Lactobacillus acidophilus 250 500 mmu cells PO DAILY 05/07/24 Unknown History million cell capsule (Probiotic Acidophilus) losartan 100 1 tab PO QDAY #90 tabs 06/11/24 Unknown Rx mg-hydrochlorothiazide 12.5 mg tablet meloxicam 7.5 mg tablet 7.5 mg PO BID PRN pain 06/11/24 Unknown History famotidine 20 mg tablet 20 mg PO QDAY #30 tabs 07/13/24 Unknown Rx pantoprazole 40 mg tablet,delayed 40 mg PO QDAY #90 tabs 07/13/24 Unknown Rx release linaclotide 145 mcg capsule 145 mcg PO QAM #60 caps 07/31/24 Unknown Rx (Linzess) tizanidine 2 mg tablet 2 mg PO Q8H PRN muscle spasticity 08/27/24 Unknown History Allergy/AdvReac Type Severity Reaction Status Date / Time hydromorphone (From Dilaudid) Allergy Rash Verified 09/10/24 14:02 chlorhexidine AdvReac Intermediate rash Verified 09/10/24 14:02 Family History Other Anxiety Arthritis Breast cancer Depression Diabetes Heart disease Hyperlipemia Hypertension Surgical History Hx of foot surgery H/O bilateral salpingectomy Hx of dilation and curettage History of removal of retained hardware History of LAVH History of bunionectomy of both great toes Social History Smoking Status: Never smoker alcohol intake: current alcohol intake frequency: a few times a week Alcohol type: wine details: social substance use type: does not use caffeine: Yes what type of physical activity do you participate in: walking seatbelt use: always do you feel safe at home: Yes additional social history: [employer]- [employer]. Patient works at [employer] Review of Systems (Anesthesia) ROS Narrative System reviewed and no additional complaints, except as documented.
--- NOTE | 2024-09-14 14:00 | EGD_PTH ---
PATIENT: RAMANDEEP SNOW LOC: EN U#:[id number] AGE/SX: 44/F ROOM: RE09/14/[address]: Dr. Srinivas Burgos DO : 1980 BED: DIS: 09/14/2024 SPEC #: [id number] RECD: 09/17/24 08:45 STATUS: BHARATIH REEaston #: [id number] MAGGI: 09/14/24 14:[address]: Srinivas Burgos DEPT: SURGICAL PATHOLOGY RECD BY: Navneet Gunter ENTERED: 09/17/24 08:45 SP TYPE: EGD BIOPSY JADEN DR: Dr. Winifred Pedro MD Tissues: A - Esophagus, NOS Procedures: Surgery Specimen Level IV HEADER OPERATION: EGD with biopsy PRE-OP DIAGNOSIS: Heartburn, abdominal symptoms, constipation TISSUE SUBMITTED: A- Distal esophagus biopsy MICROSCOPIC DIAGNOSIS A. Distal esophagus, biopsy: * Squamous mucosa with mild reactive changes and 2 eosinophils per high power field. * Columnar mucosa negative for goblet cell metaplasia. MICROSCOPIC DESCRIPTION Slides are reviewed. GROSS DESCRIPTION A. Received in formalin in a container labeled with the patient's name, date of , and distal esophagus biopsy are 2 tirado-pink fragments of mucosal tissue, each measuring 0.3 x 0.3 x 0.3 cm. Submitted in toto in A1. B 09/23/2024 CPT:61817
--- NOTE | 2024-09-14 14:09 | PCM.HP.STD ---
HPI - General General Date of Admission: 09/14/24 Date of Service: 09/14/24 HPI Narrative HPI HPI Chief Complaint: constipation Details: RAMANDEEP SNOW, is a 43 F who presents to the office today for establishment with [facility]. Pt has been having issues with constipation for the past 10 years but became worse after her partial hysterectomy. She takes senna and a stool softener daily which produces a bm daily in the morning but it does not ever feel complete. She has tried miralax and fiber in the past but this has not worked. She feels fatigued and bloated. She has also been struggling with heartburn and LUQ pain. She will wake up coughing and with heartburn at night. She will take esomeprazole occasionally in the evening but has never taken it consistently in the morning. She has never had an EGD but she did have a colonoscopy in 2019 with recommendation for repeat in 10 years. [facility] Medical History Left upper quadrant abdominal pain Depression Alcohol use Low iron DDD (degenerative disc disease), cervical Gastric reflux History of pain when walking Preop exam for internal medicine Hyperlipidemia Screening for thyroid disorder Arthritis Chronic fatigue Wears contact lenses Back pain Restless legs History of IBS Non-smoker Hypertension Preoperative evaluation to rule out surgical contraindication Vitamin D deficiency UTI (urinary tract infection) Preventative health care Insomnia Migraines IBS (irritable bowel syndrome) Hypertension Frequent UTI HSV (herpes simplex virus) infection Condyloma HPV test positive Shingles Constipation Home Medications ?Medication ?Instructions ?Recorded ?Last Taken ?Type ibuprofen 400 mg tablet 400 mg PO Q6H PRN pain #30 tabs 03/06/21 Unknown Rx ferrous sulfate 325 mg (65 mg 325 mg PO Q OTHER DAY 08/09/22 Unknown History iron) tablet,delayed release cholecalciferol (vitamin D3) 25 50 mcg PO DAILY 01/31/23 Unknown History mcg (1,000 unit) capsule (Vitamin D3) multivitamin 1 tab PO QDAY 04/16/24 Unknown History Lactobacillus acidophilus 250 500 mmu cells PO DAILY 05/07/24 Unknown History million cell capsule (Probiotic Acidophilus) losartan 100 1 tab PO QDAY #90 tabs 06/11/24 Unknown Rx mg-hydrochlorothiazide 12.5 mg tablet meloxicam 7.5 mg tablet 7.5 mg PO BID PRN pain 06/11/24 Unknown History famotidine 20 mg tablet 20 mg PO QDAY #30 tabs 07/13/24 Unknown Rx pantoprazole 40 mg tablet,delayed 40 mg PO QDAY #90 tabs 07/13/24 Unknown Rx release linaclotide 145 mcg capsule 145 mcg PO QAM #60 caps 07/31/24 Unknown Rx (Linzess) tizanidine 2 mg tablet 2 mg PO Q8H PRN muscle spasticity 08/27/24 Unknown History Allergy/AdvReac Type Severity Reaction Status Date / Time hydromorphone (From Dilaudid) Allergy Rash Verified 09/14/24 13:24 chlorhexidine AdvReac Intermediate rash Verified 09/14/24 13:24 Family History Other Anxiety Arthritis Breast cancer Depression Diabetes Heart disease Hyperlipemia Hypertension Surgical History Hx of foot surgery H/O bilateral salpingectomy Hx of dilation and curettage History of removal of retained hardware History of LAVH History of bunionectomy of both great toes Social History Smoking Status: Never smoker alcohol intake: current alcohol intake frequency: a few times a week Alcohol type: wine details: social substance use type: does not use caffeine: Yes what type of physical activity do you participate in: walking seatbelt use: always do you feel safe at home: Yes additional social history: [employer]- [employer]. Patient works at [employer] Amitive Constitutional Constitutional: Denies fatigue, fever(s), poor appetite, weight gain or weight loss Gastrointestinal Gastrointestinal: Denies belching, bloating, change in bowel habits, change in stool character, chewing difficulty, coffee ground emesis, constipation, cramping, diarrhea, dyspepsia, dysphagia, early satiety, excessive flatus, fecal incontinence, heartburn, hematemesis, hematochezia, hemorrhoids, loose stools, melena, nausea, odynophagia, rectal bleeding, tenesmus, vomiting or weight changes Vital Signs Vital Signs Vital Signs: 09/14/24 13:28 09/14/24 13:28 Temperature 97.6 F L Temperature Source Temporal Pulse Rate 67 Respiratory Rate 16 Respiratory Pattern Normal Blood Pressure 145/97 H Blood Pressure Mean 113 Blood Pressure Source Monitor Blood Pressure Position Semi-Fowlers Blood Pressure Location Right Arm Pulse Ox 100 Oxygen Delivery Method Room Air Weight Weight: 151 lb 14.376 oz Body Mass Index (BMI) 28.7 Physical Exam Const alert, oriented x3, no apparent distress and healthy appearing General Appearance: cooperative GI normal to inspection, nondistended, normoactive bowel sounds, soft to palpation, non-tender and non-distended Percussion: normal to percussion Rectal Exam: deferred Assessment & Plan Assessment/Plan (1) Heartburn: PLAN: Assessment and Plan Assessment and Plan (1) Abdominal symptoms: (2) Constipation: Status: Acute Plan: This is a 43 yo female pt here today for evaluation of abd pain, heartburn and constipation. Pt most recently had a colonoscopy in 2019 with normal findings. SHe has had constipation for many years and couple with a normal colonoscopy I believe her symptoms to be form IBS-C. She is currently taking daily senna. I discouraged use of daily stimulant laxatives. She will try Linzess 72 mcg daily instead. Regarding up epigastric pain and heartburn, she will start pantoprazole 40 mg daily in the morning and famotidine as needed at night. She will undergo EGD to assess her upper GI tract. -Start Linzess -Start pantoprazole -Famotidine PRN -EGD -f/u after procedure (3) Heartburn: Status: Acute Medications: New pantoprazole 40 mg PO QDAY 90 tabs 1RF famotidine 20 mg PO QDAY 30 tabs 2RF linaclotide (Linzess) 72 mcg PO QAM 60 caps 3RF
--- NOTE | 2024-09-14 14:37 | PCM.POST.ANE ---
Anesthesia: Postop Eval I Current Vital Signs Temperature: 98 F Pulse Rate: 82 Blood Pressure: 127/88 Respiratory Rate: 16 Pulse Ox: 97 Oxygen Delivery Method: Room Air Assessment Airway patent: Yes Spontaneous unlabored respirations: Yes Mental status: Awake and Calm nausea: No Vomiting: No Anesthesia Complication: No Fluid Hydration Crystalloid volume administer (ml): 30 Total IV fluid infused: 30 Progress Note Anesthesia document: Postop Eval 1 completed: Yes
--- NOTE | 2024-09-14 14:38 | OP.EGD_ITS ---
Patient Name: Kerri Barry Procedure Date: 09/14/2024 2:14 PM Date of : 1980 Age: 44 Procedure: Upper GI endoscopy Indications: Heartburn, Suspected esophageal reflux Providers: Srinivas Burgos DO Medicines: Monitored Anesthesia Care Patient Profile: This is a 44 year old female. Refer to note in patient chart for documentation of history and physical. Patient has symptoms of chronic epigastric abdominal pain, chronic heartburn and chronic nausea. Patient has symptoms of chronic heartburn. Complications: No immediate complications. Procedure: Pre-Anesthesia Assessment: - Prior to the procedure, a History and Physical was performed, and patient medications and allergies were reviewed. The patient is competent. The risks and benefits of the procedure and the sedation options and risks were discussed with the patient. All questions were answered and informed consent was obtained. Patient identification and proposed procedure were verified by the physician in the pre-procedure area. Mental Status Examination: alert and oriented. Airway Examination: normal oropharyngeal airway and neck mobility. Respiratory Examination: clear to auscultation. CV Examination: normal. Prophylactic Antibiotics: The patient does not require prophylactic antibiotics. Prior Anticoagulants: The patient has taken no anticoagulant or antiplatelet agents except for NSAID medication. ASA Grade Assessment: II - A patient with mild systemic disease. After reviewing the risks and benefits, the patient was deemed in satisfactory condition to undergo the procedure. The anesthesia plan was to use monitored anesthesia care (MAC). Immediately prior to administration of medications, the patient was re-assessed for adequacy to receive sedatives. The heart rate, respiratory rate, oxygen saturations, blood pressure, adequacy of pulmonary ventilation, and response to care were monitored throughout the procedure. The physical status of the patient was re-assessed after the procedure. After obtaining informed consent, the endoscope was passed under direct vision. Throughout the procedure, the patient's blood pressure, pulse, and oxygen saturations were monitored continuously. The Endoscope was introduced through the mouth, and advanced to the second part of duodenum. The upper GI endoscopy was accomplished without difficulty. The patient tolerated the procedure well. Scope In: 2:24:40 PM Scope Out: 2:27:28 PM Total Procedure Duration Time 0 hours 2 minutes 48 seconds Findings: LA Grade A (one or more mucosal breaks less than 5 mm, not extending between tops of 2 mucosal folds) esophagitis with no bleeding was found 38 to 40 cm from the incisors. Biopsies were taken with a cold forceps for histology. Verification of patient identification for the specimen was done. Estimated blood loss was minimal. Bilious fluid was found in the gastric body. Patchy mildly erythematous mucosa without bleeding was found in the gastric body. Biopsies were taken with a cold forceps for histology. Verification of patient identification for the specimen was done. Estimated blood loss was minimal. Biopsies were taken with a cold forceps for Helicobacter pylori testing. Verification of patient identification for the specimen was done. Estimated blood loss was minimal. The examined duodenum was normal. Impression: - LA Grade A reflux esophagitis with no bleeding. Biopsied. - Bilious gastric fluid. - Erythematous mucosa in the gastric body. Biopsied. - Normal examined duodenum. Recommendation: - Discharge patient to home. - Resume previous diet. - Continue present medications. - Await pathology results. Procedure Code(s): --- Professional --- 59274, Esophagogastroduodenoscopy, flexible, transoral; with biopsy, single or multiple CPT copyright 2021 [employer]. All rights reserved. The codes documented in this report are preliminary and upon grassland conservationist review may be revised to meet current compliance requirements. Srinivas Burgos DO 09/14/2024 2:38:41 PM This report has been signed electronically. Number of Addenda: 0 Note Initiated On: 09/14/2024 2:14 PM
--- NOTE | 2024-09-14 14:39 | OP.CCLET_ITS ---
09/14/2024 Winifred Pedro [facility] [address] [place] [address] Re : Upper GI endoscopy procedure for Kerri Barry Dear Dr. Pedro This procedure was performed on Saturday, September 14, 2024. My impressions and recommendations are as follows: Impressions : - LA Grade A reflux esophagitis with no bleeding. Biopsied. - Bilious gastric fluid. - Erythematous mucosa in the gastric body. Biopsied. - Normal examined duodenum. Recommendations : - Discharge patient to home. - Resume previous diet. - Continue present medications. - Await pathology results. My findings are described in the full procedure note, which is enclosed. If I can be of further assistance, please feel free to contact me at . Sincerely, Srinivas Burgos, 09/14/2024 2:38:41 PM This report has been signed electronically.
--- NOTE | 2024-09-14 14:59 | PCM.POSTANE2 ---
Anesthesia Postop Eval I Sum Postop Eval Completion status Anesthesia document: Postop Eval 1 completed: Yes Anesthesia Postop Eval I Summary Anesthesia Postop Eval I Summary: Anesthesia Postop Eval I: Assessment Summary Airway patent Yes 09/14/24 14:37 [email or web address] Spontaneous unlabored Yes 09/14/24 14:37 [email or web address] respirations Mental status Awake,Calm 09/14/24 14:37 [email or web address] nausea No 09/14/24 14:37 [email or web address] Vomiting No 09/14/24 14:37 [email or web address] Anesthesia Postop Eval I: Fluid Summary Crystalloid volume administer 30 09/14/24 14:37 [email or web address] (ml) Colloids volume administered ( ml) Blood Product volume administered (ml) Total IV fluid infused 30 09/14/24 14:37 [email or web address] Anesthesia Postop Eval I: Summary Notes Anesthesia Complication No 09/14/24 14:37 [email or web address] Anesthesia Complication Comment: Post-operative progress note Anesthesia: Postop Eval II Evaluation Mental status: Awake Pain Level: 0 nausea: No Vomiting: No
== END 2024-09-14 15:39 | disposition home or self-care (01) ==
LOC: EN 13:04 → AC 13:05
PROVIDERS: PCP Internal Medicine; Referring Provider Internal Medicine; Visit Provider Internal Medicine Gastroenterology
PROC: 0DJ08ZZ Inspection of Upper Intestinal Tract, Via Natural or Artificial Opening Endoscopic (ICD-10-PCS; CPT 43235; principal; 2024-09-14 13:55)
DX: K21.00 Gastro-esophageal reflux disease with esophagitis, without bleeding (principal); K59.00 Constipation, unspecified; E78.5 Hyperlipidemia, unspecified; I10 Essential (primary) hypertension; Z90.710 Acquired absence of both cervix and uterus; Z87.440 Personal history of urinary (tract) infections; R12 Heartburn
CPT/HCPCS: 43239; 88305; A4216; J2405

== ENCOUNTER → 2024-10-10 | Outpatient (CLI) | payer OTHER, SELFPAY ==
[2024-10-11 18:08] LABS: H. PYLORI STOOL AG Negative (Negative)
== END | disposition home or self-care (01) ==
LOC: LABSPEC 08:09
PROVIDERS: PCP Internal Medicine; Referring Provider Student in an Organized Health Care Education/Training Program; Visit Provider Student in an Organized Health Care Education/Training Program
DX: R12 Heartburn (principal)
CPT/HCPCS: 87338

== ENCOUNTER → 2024-10-25 | Outpatient (CLI) | payer OTHER, SELFPAY ==
--- NOTE | 2024-10-25 07:20 | BI_ITS ---
EXAM: SCRN MAMM (CAD)W/SYDNEY BILAT DATE: 10/25/2024 CLINICAL HISTORY: F, Age 44 y/o , SCREENING MAMMOGRAM FOR BREAST CANCER No family history. BREAST CANCER RISK ASSESSMENT: Not assessed TECHNIQUE: Bilateral screening digital breast tomosynthesis with 2D and 3D images. Computer aided detection. COMPARISON: Prior exam(s) dated October 25, 2023.. FINDINGS: TISSUE DENSITY: The breast tissue is heterogenously dense, which may obscure small masses. Bilateral Breast Mammographic Findings: No significant masses, calcifications or other abnormalities are identified. No suspicious masses, areas of developing architectural distortion, or suspicious calcifications. There has been no significant interval change. BI/SCRN MAMM (CAD)W/SYDNEY BILAT IMPRESSION: OVERALL FINAL ASSESSMENT: BIRADS 1 NEGATIVE RECOMMENDATION: Routine annual follow-up in 1 Year A letter with findings and recommendations will be mailed to the patient. Reading Location: [place] [id number]
== END | disposition home or self-care (01) ==
LOC: OPBI 07:18
PROVIDERS: PCP Internal Medicine; Referring Provider Advanced Practice Midwife; Visit Provider Advanced Practice Midwife
DX: Z12.31 Encounter for screening mammogram for malignant neoplasm of breast (principal)
CPT/HCPCS: 77063; 77067

== ENCOUNTER → 2024-11-09 | Outpatient (CLI) | payer OTHER, SELFPAY ==
--- OUTSIDE RECORDS SUMMARY | 2024-11-09 18:30 | XMS RPT_ITS | CCD ---
Author Organization [facility] Care Team Providers Care Yoker Name Role Phone Stewart Frederick MD Primary Care Provider Dr. Cassia Elliott Primary Care Provider [phone] Dr. Cassia Elliott Attending Provider [phone] Dr. Cassia Elliott Referring Provider [phone] Dr. Cassia Elliott Referring Provider [phone] Kang RICKETTS, DINAH Yang Attending Provider Dr. Stewart Frederick Primary Care Provider Dr. Stewart Frederick Referring Provider Dr. Gayathri Darden Attending Provider Stewart Frederick MD Primary Care Provider Dr. Stewart Frederick Primary Care Provider Stewart Frederick MD Primary Care Provider Dr. Stewart Frederick Primary Care Provider Dr. Stewart Frederick Referring Provider DINAH Mcintyre Attending Provider Dr. Stewart Frederick Primary Care Provider Dr. Stewart Frederick Referring Provider ZOHREH Riley Attending Provider Dr. Stewart Frederick Primary Care Provider Dr. Stewart Frederick Referring Provider ZOHREH Riley Attending Provider Dr. Hilda Gallego Attending Provider [phone] Dr. Tian Schmitz Attending Provider Dr. Hilda Gallego Referring Provider [phone] Dr. Stewart Frederick Primary Care Provider Fanny, Dr. Stewart Seymour Referring Provider Dr. Hilda Gallego Attending Provider [phone] Dr. Winifred Pedro Attending Provider Fanny, Dr. Stewart Seymour Primary Care Provider Fanny, Dr. Stewart Seymour Referring Provider Dr. Hilda Gallego Attending Provider [phone] Dr. Winifred Pedro Primary Care Provider Dr. Winifred Pedro Referring Provider Dr. Winifred Pedro Attending Provider Stewart Frederick MD Primary Care Provider Willis DELEON, Dr. Vitale Primary Care Provider Willis DELEON, Dr. Vitale Attending Provider Willis DELEON, Dr. Vitale Referring Provider Marley Byrd Attending Provider Dr. Mj Kingsley MD Attending Provider Dr. Mj Kingsley MD Referring Provider Dr. Armando Del Rosario DO Attending Provider Aubrey SANTILLAN, Dr. Espino Attending Provider Dr. Srinivas Burgos DO Other Provider [phone] Willis DELEON, Dr. Vitale Primary Care Provider Marley Byrd Referring Provider South CNShannon, Sangeeta Attending Provider [phone] South BRUNER, Sangeeta Referring Provider WillisWinifred lara Attending Unavailable Willis, Winifred Primary Care Unavailable Willis, Winifred Primary Care Unavailable Kingsley, Mj Referring Unavailable Kingsley, Mj Attending Unavailable Kingsley, Mj Referring Unavailable Kingsley, Mj Attending Unavailable Willis, Winifred Primary Care Unavailable Willis, Winifred Attending Unavailable Willis, Winifred Referring Unavailable Willis, Winifred Primary Care Unavailable Willis, Winifred Primary Care Unavailable Kingsley, Mj Referring Unavailable Kingsley, Mj Attending Unavailable Willis, Winifred Referring Unavailable Willis, Winifred Primary Care Unavailable Marley Evans Attending Unavailable Willis, Winifred Primary Care Unavailable Ema HYDROPONICS WORKER, Colleen E Referring Unavailabl e Ema HYDROPONICS WORKER, Colleen E Attending Unavailabl e Willis, Winifred Primary Care Unavailable Ema HYDROPONICS WORKER, Colleen E Referring Unavailabl e Ema HYDROPONICS WORKER, Colleen E Attending Unavailabl e Willis, Winifred Primary Care Unavailable Marley Evans Attending Unavailable Marley Evans Referring Unavailable Willis, Winifred Primary Care Unavailable Armando Del Rosario Referring Unavailable Armando Del Rosario Attending Unavailable Willis, Winifred Primary Care Unavailable Armando Del Rosario Attending Unavailable Armando Del Rosario Referring Unavailable Willis, Winifred Consulting Unavailable Wunning, Edmund Referring Unavailable WunningEdmund Attending Unavailable Willis, Winifred Primary Care Unavailable Willis, Winifred Referring Unavailable Willis, Winifred Primary Care Unavailable Renee Burgosaan Attending Unavailable Willis, Winifred Primary Care Unavailable Sangeeta Dia Referring Unavailable Sangeeta Dia Attending Unavailable Willis, Winifred Referring Unavailable Kingsley, Mj Attending Unavailable Willis, Winifred Primary Care Unavailable Willis, Winifred Primary Care Unavailable Willis, Winifred Referring Unavailable Kingsley, Mj Attending Unavailable Willis, Winifred Attending Unavailable Willis, Winifred Primary Care Unavailable Wunning, Edmund Referring Unavailable Wunning, Edmund Attending Unavailable Willis, Winifred Primary Care Unavailable Willis, Winifred Primary Care Unavailable Assessment, Health Risk Referring Unavaila ble Assessment, Health Risk Attending Unavaila ble Willis, Winifred Primary Care Unavailable Assessment, Health Risk Attending Unavaila ble Willis, Winifred Referring Unavailable Willis, Winifred Primary Care Unavailable Armando DelR osario Attending Unavailable Willis, Winifred Primary Care Unavailable Willis, Winifred Referring Unavailable Armando Del Rosario Attending Unavailable Willis, Winifred Primary Care Unavailable Willis, Winifred Referring Unavailable Marley Evans Attending Unavailable Willis, Winifred Referring Unavailable Cindy Montaño Attending Unavailable Willis, Winifred Primary Care Unavailable Willis, Winifred Primary Care Unavailable Willis, Winifred Referring Unavailable FriendSrinivas Attending Unavailable FriendReneeSrinivas Consulting Unavailable Willis, Winifred Attending Unavailable Willis, Winifred Primary Care Unavailable Willis, Winifred Referring Unavailable Willis, Winifred Primary Care Unavailable Colleen Boo NP Attending Unavailjen e Allergies Allergy Classification Reported Allergen(s) Allergy Type Date of Onset Reaction(s) Facility (20 sources) Chlorhexidine Drug Allergy 0 Rash [place] Work Phone: (20 sources) HYDROmorphone Drug Allergy 2 [facility] Work Phone: (4 sources) CHLORAPREP Allergy to substance 2 [facility] Work Phone: (7 sources) Isopropyl Alcohol Drug Allergy 2 [facility] (2 sources) buPROPion Drug Allergy 2 Other: See Comments [place] Work Phone: (1 source) Chlorhexidine Drug Allergy 5 [facility] (1 source) HYDROmorphone Drug Allergy 5 [facility] (1 source) Isopropyl Alcohol Drug Allergy 5 [facility] Medications Current Medications Medication Drug Class(es) Dates Sig (Normalized) Sig (Original) B-complex with vitamin C (SUPER B COMPLEX-VITAMIN C ORAL) (4 sources) End: 10-06-2021 B-complex with vitamin C (SUPER B COMPLEX-VITAMIN C ORAL) Take by mouth. 0 10/06/2021 Discontinued B-complex with v itamin C (SUPER B COMPLEX-VITAMIN C ORAL) Take by mouth. 0 Active Comment on above: Take by mouth. augmented betamethasone 0.5 mg/ml topical cream (4 sources) Corticosteroid Start: 06-25-2021 End: 10-06-2021 betamethasone dipropionate, augmented (DIPROLENE) 0.05 % cream calcium carbonate/vitamin D2 ([id number]-626-S ORAL) (4 sources) End: 10-06-2021 calcium carbonate/vitamin D2 ([id number]-216-S ORAL) Take by mouth. 0 10/06/2021 Discontinued calcium carbonat e/vitamin D2 ([id number]-449-V ORAL) Take by mouth. 0 Active Comment on above: Take by mouth. cholecalciferol 0.025 mg oral capsule (20 sources) Vitamin D Start: 02-01-20 take 1 capsule by mouth once daily Cholecalciferol (Vitamin D3) (Vitamin D3) 25 mcg (1,000 unit) capsule Active 50 ug PO DAILY January 31, 2023 2:36pm Start: 08-09-2022 End: 01-31-2023 take 1 capsule by mouth once daily Cholecalciferol (Vitamin D3) (Vitamin D3) 25 mcg (1,000 unit) capsule Discontinued 25 ug PO DAILY August 09, 2022 1:00am January 31, 2023 2:38pm Start: 04-27-2022 take 1 capsule by mo ut once daily Cholecalciferol, Vitamin D3, 125 mcg (5,000 unit) cap Indications: Vitamin D deficiency Take 1 capsule by mouth once daily. 0 04/27/2022 Active Start: 09-04-2020 End: 11-26-2020 take 1 capsule by mouth every week Cholecalciferol (Vitamin D3) 1,250 mcg (50,000 unit) capsule Discontinued 1250 ug PO EVERY WEEK September 04, 2020 12:00am November 26, 2020 3:46pm End: 04-27-2022 take 1 capsule by mouth once daily Cholecalciferol, Vitamin D3, 50 mcg (2,000 unit) cap Indications: Vitamin D deficiency Take by mouth. 5000 units daily 0 04/27/2022 Discontinued Comment on above: Take by mouth. Take 1 capsule by mo uth once daily. Take by mouth. 5000 units daily DULoxetine 20 mg delayed release oral capsule (3 sources) Serotonin and Norepinephrine Reuptake Inhibitor Start: 2 take 1 capsule by mouth once daily DULoxetine (CYMBALTA) 20 mg capsule Indications: Persistent depressive disorder Take 1 capsule by mouth once daily. 90 capsule 0 04/28/2022 Active Comment on above: Take 1 capsule by [facility] once daily. famotidine 20 mg oral tablet (6 sources) Histamine-2 Receptor Antagonist Start: 5 take 1 tablet by mouth once daily Famotidine 20 mg tablet Active 20 mg PO daily July 13, 2024 1:00am Start: 05-07-2024 End: 05-11-2024 take 1 tablet by mouth at bedtime Famotidine (Acid Human Resource Statistician (Famotidine)) 20 mg tablet Discontinued 20 mg PO AT BEDTIME May 07, 2024 1:00am May 11, 2024 7:20am ferrous sulfate 325 mg delayed release oral tablet (11 sources) Start: 08-09-2022 take 1 tablet by mouth every other day Ferrous Sulfate 325 mg (65 mg iron) tablet,delayed release (DR/EC) Active 325 mg PO every other day August 09, 2022 1:00am ferrous sulfate (FEOSOL) 325 mg (65 mg iron) tablet Take by mouth. Two times weekly 0 Active Comment on above: Take by mouth. Two t imes weekly hydroCHLOROthiazide 12.5 mg / losartan potassium 100 mg oral tablet (6 sources) Thiazide Diuretic, Angiotensin 2 Receptor Donny Start: 06-11-2024 Losartan-Hydrochlo rothiazide 100-12.5 mg tablet Active 1 {tbl} PO daily June 11, 2024 1:00am Start: 04-16-2024 End: 06-11-2024 Losartan-Hydrochlorothiazide 50-12.5 mg tablet Discontinued 1 {tbl} PO daily April 16, 2024 1:00am June 11, 2024 9:26am ibuprofen 400 mg oral tablet (20 sources) Nonsteroidal Anti-inflammatory Drug Start: 03-06-2021 take 1 tablet by mouth every six hours as needed for pain Ibuprofen 400 mg tablet Active 400 mg PO EVERY 6 HOURS as needed for pain March 06, 2021 12:00am Start: 07-25-2020 End: 09-04-2020 take 1 tablet by mouth every six hours as needed for pain Ibuprofen 400 MG tablet Discontinued 400 mg PO EVERY 6 HOURS NEEDED as needed for Pain Score 1-10 40 July 25, 2020 9:45am September 04, 2020 4:03pm Start: 04-16-2015 End: 06-17-2017 take 2 tablets by mouth every six hours Ibuprofen 400 MG tablet Discontinued 800 mg PO EVERY 6 HOURS 40 April 17, 2015 8:51am June 17, 2017 5:37pm Start: 04-16-2015 End: 06-17-2017 take 800 mg by mouth every six hours Ibuprofen Discontinued 800 MG PO EVERY 6 HOURS 40 April 17, 2015 7:51am June 17, 2017 4:37pm lactobacillus acidophilus 1.5 mg oral capsule (3 sources) Start: 05-07-2024 Lactobacillus Acidophilus (Probiotic Acidophilus) 250 million cell capsule Active 500 NMA PO DAILY May 07, 2024 1:00am levonorgestrel 0.501350 mg/hr intrauterine system (4 sources) Progestin, Progestin-containi ng Intrauterine Device Start: 01-21-2009 End: 10-06-2021 levonorgestrel(MICKI HUGO 20 MCG/24 HR INTRAUTERINE DEVICE) Use as directed. 1 0 01/21/2009 10/06/2021 Discontinued Comment on above: Use as directed. linaclotide 0.145 mg oral capsule (6 sources) Guanylate Cyclase-C Agonist Start: 07-31-2024 take 1 capsule by mouth once daily in the morning Linaclotide (Linzess) 145 mcg capsule Active 145 ug PO EVERY MORNING 60 July 31, 2024 1:00am Start: 07-13-2024 End: 08-27-2024 take 1 capsule by mouth once daily in the morning Linaclotide (Linzess) 72 mcg capsule Discontinued 72 ug PO EVERY MORNING 60 July 13, 2024 1:00am August 27, 2024 3:45pm Magnesium (4 sources) End: 10-06-2021 Magnesium 250 mg tab Take 25 0 mg by mouth. 0 10/06/2021 Discontinued Magnesium 250 mg tab Take 250 mg by mouth. 0 Active Comment on above: Take 250 mg by mouth . meloxicam 7.5 mg oral tablet (6 sources) Nonsteroidal Anti-inflammatory Drug Start: 06-11-2024 take 1 tablet by mouth twice daily as needed for pain Meloxicam 7.5 mg tablet Active 7.5 mg PO TWICE A DAY as needed for pain June 11, 2024 1:00am Start: 01-02-2024 End: 04-16-2024 take 1 tablet by mouth once daily Meloxicam 15 mg tablet Discontinued 15 mg PO DAILY January 02, 2024 12:00am April 16, 2024 9:27am Do not take in conjunction with another NSAID including ibuprofen. Tylenol okay Multivitamin tablet (3 sources) Start: 04-16-2024 Multivitamin t ablet Active 1 {tbl} PO daily April 16, 2024 1:00am Multivitamin,Tx-Iron-Min erals (Complete Multivitamin) tablet (14 sources) Start: 02-12-2019 take 1 tablet by mouth once daily Multivitamin,Tx-Iron-Mi nerals (Complete Multivitamin) tablet Active 1 TABLET PO DAILY February 12, 2019 10:42am Start: 02-12-2019 End: 01-31-2023 Multivitamin,Wr-Zwdc-Zohftcl s (Complete Multivitamin) tablet Discontinued 1 {tbl} PO DAILY February 12, 2019 12:00am January 31, 2023 2:50pm Start: 02-12-2019 End: 01-31-2023 take 1 tablet by mouth once daily Multivitamin,Dz-Pipm-Uoesdjxq (Complete Multivitamin) tablet Discontinued 1 TABLET PO DAILY February 11, 2019 11:00pm January 31, 2023 1:50pm Start: 02-12-2019 End: 01-31-2023 take 1 tablet by mouth once daily Multivitamin,Hq-Dddq-Yokzqxbl (Complete Multivitamin) tablet Discontinued 1 TABLET PO DAILY February 12, 2019 12:00am January 31, 2023 2:50pm Start: 02-12-2019 take 1 tablet by zulema th once daily Multivitamin,Gs-Tqxd-Hhktmuxc (Complete Multivitamin) tablet Active 1 TABLET PO DAILY February 11, 2019 11:00pm Start: 02-12-2019 take 1 tablet by zulema th once daily Multivitamin,Oy-Thtx-Trricbaw (Complete Multivitamin) tablet Active 1 TABLET PO DAILY February 12, 2019 12:00am omeprazole 20 mg delayed release oral capsule (7 sources) Proton Pump Inhibitor Start: 04-27-2022 take 1 capsule by mouth twice daily before mealtime omeprazole (PRILOSEC) 20 mg capsule Indications: LPRD (laryngopharyngeal reflux disease) Take 1 capsule by mouth twice daily. 1/2 hr before meal. 180 capsule 3 04/27/2022 Active Start: 01-16-2022 End: 04-27-2022 take 1 capsule by mouth once daily before breakfast omeprazole (PRILOSEC) 20 mg capsule Take 1 capsule by mouth daily before breakfast. 1/2 hr before meal. 90 capsule 3 01/16/2022 04/27/2022 Discontinued Comment on above: Take 1 capsule by mo uth daily before breakfast. 1/2 hr before meal. Take 1 capsule by mo uth twice daily. 1/2 hr before meal. pantoprazole 40 mg delayed release oral tablet (3 sources) Proton Pump Inhibitor Start: 5 take 1 tablet by mouth once daily Pantoprazole 40 mg tablet,delayed release (DR/EC) Active 40 mg PO daily July 13, 2024 1:00am PARoxetine hydrochloride 20 mg oral tablet (1 source) Serotonin Reuptake Inhibitor Start: 1 End: 2 take 0.5 tablet by mouth once daily paroxetine (PAXIL) 20 mg ORAL tablet Indications: Depressive disorder, not elsewhere classified Take 0.5 tablets by mouth once daily. 30 tablet 1 01/15/2011 09/04/2021 Discontinued Comment on above: Take 0.5 tablets by mouth once daily. potassium gluconate 2.5 meq oral tablet (4 sources) End: 2 Potassium 99 mg tab Take by mouth. 0 10/06/2021 Discontinued Comment on above: Take by mouth. tiZANidine 2 mg oral tablet (3 sources) Central alpha-2 Adrenergic Agonist Start: 5 take 1 tablet by mouth every eight hours as needed Tizanidine 2 mg tablet Active 2 mg PO Q8H as needed for muscle spasticity August 27, 2024 12:00am ubidecarenone/vitamin E mixed (COQ10 SG 100 ORAL) (4 sources) End: 2 ubidecarenone/vitami n E mixed (COQ10 SG 100 ORAL) Take by mouth. 0 10/06/2021 Discontinued ubidecarenone/vi tamin E mixed (COQ10 SG 100 ORAL) Take by mouth. 0 Active Comment on above: Take by mouth. Completed/Discontinued Medications Medication Drug Class(es) Dates Sig (Normalized) Sig (Original) acetaminophen 300 mg / HYDROcodone bitartrate 5 mg oral tablet (3 sources) Opioid Agonist Start: 05-11-2024 End: 06-11-2024 Hydrocodone-Acetami nophen 5-300 mg tablet Discontinued 1 {tbl} PO EVERY 6 HOURS as needed for pain 18 May 11, 2024 June 11, 2024 9:05am acetaminophen 325 mg / oxyCODONE hydrochloride 5 mg oral tablet (20 sources) Opioid Agonist Start: 03-06-2021 End: 08-10-2021 Oxycodone-Acetamino phen (Percocet) 5-325 mg tablet Discontinued 1 {tbl} PO EVERY 6 HOURS as needed for pain 20 March 06, 2021 August 10, 2021 3:01pm Start: 07-25-2020 End: 07-29-2020 Oxycodone-Acetaminophen 1 TA BLET tablet Discontinued 1 - 2 {tbl} PO EVERY 6 HOURS NEEDED as needed for Pain 30 July 25, 2020 July 28, 2020 1:00am July 29, 2020 1:03am Start: 07-25-2020 End: 07-29-2020 take 1 tablet by mouth every six hours as needed Oxycodone-Acetaminophen Discontinued 1 - 2 TABLET PO EVERY 6 HOURS NEEDED 30 July 25, 2020 July 29, 2020 12:03am Start: 08-20-2016 End: 06-17-2017 Oxycodone-Acetaminophen 1 TA BLET tablet Discontinued 1 - 2 {tbl} PO EVERY 6 HOURS NEEDED as needed for Pain August 20, 2016 12:00am June 17, 2017 5:37pm Start: 08-20-2016 End: 06-17-2017 take 1 tablet by mouth every six hours as needed Oxycodone-Acetaminophen Discontinued 1 - 2 TABLET PO EVERY 6 HOURS NEEDED August 19, 2016 11:00pm June 17, 2017 4:37pm albuterol 0.83 mg/ml inhalation solution (1 source) beta2-Adrenergic Agonist Start: 07-24-2019 End: 07-24-2019 albuterol sulfate Discontinued 2.5 MG continuous nebulization ONCE July 24, 2019 12:14pm July 24, 2019 12:51pm amoxicillin 500 mg / clavulanate 125 mg oral tablet (20 sources) Penicillin-class Antibacterial Start: 03-06-2021 End: 08-10-2021 Amoxicillin-Pot Clavulanate (Augmentin) 500-125 mg tablet Discontinued 1 {tbl} PO Q8H March 06, 2021 12:00am August 10, 2021 3:01pm Start: 07-25-2020 End: 09-04-2020 Amoxicillin-Pot Clavulanate 1 EACH tablet Discontinued 1 NMA PO Q12H July 25, 2020 7:00pm September 04, 2020 4:03pm Start: 07-25-2020 End: 09-04-2020 Amoxicillin-Pot Clavulanate Discontinued 1 EACH PO Q12H July 25, 2020 6:00pm September 04, 2020 3:03pm azithromycin 250 mg oral tablet (14 sources) Macrolide Antimicrobial Start: 07-24-2019 End: 08-13-2019 take 2-5 tablets by mouth once daily Azithromycin 250 mg tablet Discontinued 0 PO .COMPLEX July 24, 2019 1:00am August 13, 2019 2:47pm take 500 mg today (day 1), then 250 mg for 4 days (days 2-5) PO baclofen 5 mg oral tablet (3 sources) gamma-Aminobutyric Acid-ergic Agonist Start: 06-11-2024 End: 08-27-2024 take 1 tablet by mouth three times daily as needed Baclofen 5 mg tablet Discontinued 5 mg PO THREE TIMES A DAY as needed June 11, 2024 1:00am August 27, 2024 3:44pm biotin 1 mg oral capsule (14 sources) Start: 09-04-2020 End: 11-26-2020 take 1 capsule by mouth once daily Biotin 1 mg capsule Discontinued 1 mg PO DAILY September 04, 2020 12:00am November 26, 2020 3:46pm 24 hr buPROPion hydrochloride 150 mg extended release oral tablet (20 sources) Aminoketone Start: 04-16-2024 End: 08-27-2024 take 1 tablet by mouth once daily in the morning Bupropion Hcl (Wellbutrin Xl) 150 mg tablet extended release 24 hr Discontinued 150 mg PO EVERY MORNING June 12, 2024 12:29pm August 27, 2024 3:44pm Start: 10-16-2021 End: 08-09-2022 take 1 tablet by mouth once daily in the morning Bupropion Hcl (Wellbutrin Xl) 150 mg tablet extended release 24 hr Discontinued 150 mg PO EVERY MORNING October 20, 2021 12:00am August 09, 2022 9:37am Start: 09-04-2020 End: 11-26-2020 Bupropion Hcl (Wellbutrin Sr ) 150 mg tablet sustained-release 12 hr Discontinued 150 mg PO TWICE A DAY 120 60 October 02, 2020 4:32pm November 26, 2020 3:45pm Take 150 mg nightly for a week then increase to twice daily. Start: 06-17-2017 End: 04-24-2018 take 1 tablet by mouth twice daily Bupropion Hcl 100 mg tablet Discontinued 100 mg PO TWICE A DAY June 17, 2017 1:00am April 24, 2018 4:49pm Comment on above: Take 1 tablet by zulema th once daily. 12 hr buPROPion hydrochloride 90 mg / naltrexone hydrochloride 8 mg extended release oral tablet (6 sources) Opioid Antagonist, Aminoketone Start: 3 End: 3 Naltrexone-Bupropion (Contrave) 8-90 mg tablet extended release Discontinued 2 {tbl} PO TWICE A DAY 112 28 October 16, 2022 12:00am October 16, 2022 8:03am busPIRone hydrochloride 5 mg oral tablet (20 sources) Start: 1 End: 2 take 1 tablet by mouth twice daily Buspirone 5 mg tablet Discontinued 5 mg PO TWICE A DAY 60 February 16, 2021 12:00am August 10, 2021 3:01pm Start: 10-02-2020 End: 11-26-2020 take 7.5 mg by mouth twice daily Buspirone 5 mg tablet Discontinued 7.5 mg PO TWICE A DAY 180 60 October 02, 2020 4:31pm November 26, 2020 3:45pm Start: 10-02-2020 End: 11-26-2020 take 7.5 mg by mouth twice daily Buspirone Discontinued 7.5 MG PO TWICE A DAY 180 60 October 02, 2020 3:31pm November 26, 2020 2:45pm Start: 09-04-2020 End: 10-02-2020 take 1 tablet by mouth twice daily Buspirone 5 mg tablet Discontinued 5 mg PO TWICE A DAY 60 September 04, 2020 12:00am October 02, 2020 4:32pm cephalexin 250 mg oral capsule (20 sources) Cephalosporin Antibacterial Start: 01-23-2024 End: 04-16-2024 take 1 capsule by mouth twice daily Cephalexin 250 mg capsule Discontinued 250 mg PO TWICE A DAY January 23, 2024 9:23am April 16, 2024 9:26am Start: 02-16-2021 End: 03-06-2021 take 1 capsule by mouth at bedtime as needed for urinary tract infection Cephalexin 250 mg capsule Discontinued 250 mg PO AT BEDTIME as needed for UTI February 16, 2021 9:58am March 06, 2021 7:02am Start: 02-12-2019 End: 02-21-2019 take 1 capsule by mouth twice daily Cephalexin (Keflex) 250 mg capsule Discontinued 250 mg PO TWICE A DAY February 12, 2019 12:00am February 21, 2019 2:06pm clonazePAM 0.5 mg oral tablet (14 sources) Benzodiazepine Start: 07-18-2020 End: 10-02-2020 take 1 tablet by mouth every four hours as needed for anxiety Clonazepam 0.5 MG tablet Discontinued 0.5 mg PO EVERY 4 HOURS NEEDED as needed for Anxiety July 18, 2020 1:00am October 02, 2020 3:42pm Cranberry (14 sources) Non-Standardized Food Allergenic Extract, Non-Standardized Plant Allergenic Extract Start: 02-26-2019 End: 08-10-2021 take 500 mg by mouth once daily Cranberry Discontinued 500 MG PO DAILY February 26, 2019 9:08am August 10, 2021 3:01pm Start: 02-26-2019 End: 08-10-2021 take 1 capsule by mouth once daily Cranberry 500 MG capsule Discontinued 500 mg PO DAILY February 26, 2019 12:00am August 10, 2021 3:01pm Start: 02-26-2019 End: 08-10-2021 take 500 mg by mouth once daily Cranberry Discontinued 500 MG PO DAILY February 25, 2019 11:00pm August 10, 2021 2:01pm Start: 02-26-2019 End: 08-10-2021 take 500 mg by mouth once daily Cranberry Discontinued 500 MG PO DAILY February 26, 2019 12:00am August 10, 2021 3:01pm cyclobenzaprine hydrochloride 5 mg oral tablet (7 sources) Muscle Relaxant Start: 11-14-2023 End: 01-02-2024 take 0.5-1 tablets by mouth at bedtime as needed for muscle spasms Cyclobenzaprine 5 mg tablet Discontinued 5 mg PO BEDTIME as needed for muscle spasm November 14, 2023 8:35am January 02, 2024 8:17am Take 1/2 to 1 tablet at bedtime for muscle spasm as needed. Do not drive while using this medication as it may cause sedation. Start: 06-13-2023 End: 11-14-2023 take 0.5-1 tablets by mouth at bedtime as needed for muscle spasms Cyclobenzaprine 10 mg tablet Discontinued 10 mg PO BEDTIME as needed for muscle spasm June 13, 2023 1:00am November 14, 2023 8:37am Take 1/2 to 1 tablet at bedtime for muscle spasm as needed. Do not drive while using this medication as it may cause sedation. docusate sodium 50 mg oral capsule (20 sources) Start: 09-04-2020 End: 08-10-2021 take 1 capsule by mouth once daily Docusate Sodium 50 mg capsule Discontinued 50 mg PO DAILY September 04, 2020 12:00am August 10, 2021 3:01pm Start: 07-18-2020 End: 09-04-2020 Docusate Sodium 100 MG capsu le Discontinued 250 mg PO AT BEDTIME July 18, 2020 1:00am September 04, 2020 4:03pm Start: 07-18-2020 End: 09-04-2020 take 250 mg by mouth at bedtime Docusate Sodium Discon tinued 250 MG PO AT BEDTIME July 18, 2020 12:00am September 04, 2020 3:03pm doxycycline hyclate 100 mg oral capsule (14 sources) Tetracycline-class Drug Start: 07-13-2017 End: 04-24-2018 take 1 capsule by mouth twice daily Doxycycline Hyclate 100 mg capsule Discontinued 100 mg PO TWICE A DAY July 13, 2017 1:00am April 24, 2018 4:49pm escitalopram 5 mg oral tablet (2 sources) Serotonin Reuptake Inhibitor Start: 10-06-2021 End: 10-15-2021 take 1 tablet by mouth once daily escitalopram oxalate (LEXAPRO) 5 mg tablet Indications: Binge eating disorder Take 1 tablet by mouth once daily. 30 tablet 10/06/2021 10/15/2021 Discontinued (Side Effects) Comment on above: Take 1 tablet by zulema th once daily. esomeprazole 20 mg delayed release oral capsule (3 sources) Proton Pump Inhibitor Start: 05-11-2024 End: 08-27-2024 take 1 capsule by mouth once daily Esomeprazole Magnesium (Acid Human Resource Statistician (Esomeprazole)) 20 mg capsule,delayed release(DR/EC) Discontinued 20 mg PO DAILY May 11, 2024 1:00am August 27, 2024 3:45pm fluconazole 200 mg oral tablet (3 sources) Azole Antifungal Start: 01-23-2024 End: 04-16-2024 take 1 tablet by mouth once daily Fluconazole 200 mg tablet Discontinued 200 mg PO DAILY January 23, 2024 9:23am April 16, 2024 9:26am repeat 2nd dose 24 hours after 1st dose if still symptomatic hydroCHLOROthiazide 12.5 mg / lisinopril 10 mg oral tablet (20 sources) Thiazide Diuretic, Angiotensin Converting Enzyme Inhibitor Start: 03-15-2024 End: 04-16-2024 Lisinopril-Hydr ochlorothiazide 10-12.5 mg tablet Discontinued 1 {tbl} PO daily March 15, 2024 12:00am April 16, 2024 9:42am Start: 02-12-2019 End: 03-15-2024 Lisinopril-Hydrochlorothiazi de 20-25 mg tablet Discontinued 1 {tbl} PO DAILY February 03, 2023 1:27pm March 15, 2024 4:15pm Start: 02-12-2019 End: 02-03-2023 take 1 tablet by mouth once daily Lisinopril-Hydrochlorothiazide Discontin ued 1 TABLET PO DAILY February 16, 2021 8:49am February 03, 2023 12:27pm Comment on above: Take 1 tablet by zulema th once daily. imiquimod 50 mg/ml topical cream (20 sources) Start: 09-04-2020 End: 11-26-2020 Imiquimod 5 % cream in packet Discontinued 1 NMA TOPICAL TWICE A WEEK as needed September 04, 2020 12:00am November 26, 2020 3:45pm Start: 08-13-2019 End: 09-04-2020 Imiquimod 1 EACH cream in pa cket Discontinued 1 NMA TOPICAL .COMPLEX as needed for skin July 18, 2020 2:56pm September 04, 2020 4:03pm 1 applic topical 3 times per week up to 16 weeks; melatonin 3 mg oral capsule (5 sources) Start: 01-31-2023 End: 06-13-2023 take 1 capsule by mouth at bedtime as needed Melatonin 3 mg capsule Discontinued 3 mg PO BEDTIME as needed January 31, 2023 12:00am June 13, 2023 9:18am nitrofurantoin, macrocrystals 25 mg / nitrofurantoin, monohydrate 75 mg oral capsule (20 sources) Nitrofuran Antibacterial Start: 06-14-2018 End: 02-12-2019 take 1 capsule by mouth twice daily at mealtime Nitrofurantoin Monohyd/M-Cryst (Macrobid) 100 mg capsule Discontinued 100 mg PO TWICE A DAY October 23, 2018 12:00am February 12, 2019 10:41am must administer with a meal/food Start: 01-18-2018 End: 04-24-2018 take 1 capsule by mouth twice daily at mealtime Nitrofurantoin Monohyd/M-Cryst (Macrobid) 100 mg capsule Discontinued 100 mg PO TWICE A DAY January 18, 2018 12:00am April 24, 2018 4:49pm must administer with a meal/food ofloxacin 3 mg/ml otic solution (14 sources) Quinolone Antimicrobial Start: 06-17-2017 End: 06-24-2017 Ofloxacin 0.3 % drops Discontinued 10 NMA OTIC daily 5 7 June 17, 2017 1:00am June 23, 2017 1:00am June 24, 2017 1:10am oxyCODONE hydrochloride 5 mg oral tablet (14 sources) Opioid Agonist Start: 04-16-2015 End: 04-17-2015 take 2 tablets by mouth every four hours as needed for pain Oxycodone 5 MG tablet Discontinued 10 mg PO EVERY 4 HOURS NEEDED as needed for Abdominal Pain April 16, 2015 1:00am April 17, 2015 8:51am Start: 04-16-2015 End: 04-17-2015 take 10 mg by mouth every four hours as needed Oxycodone Discontinued 10 MG PO EVERY 4 HOURS NEEDED April 16, 2015 12:00am April 17, 2015 7:51am phentermine hydrochloride 8 mg oral tablet (20 sources) Sympathomimetic Amine Anorectic Start: 03-31-2023 End: 04-16-2024 Phentermine (Lomaira) 8 mg tablet Discontinued 8 mg PO THREE TIMES A DAY November 08, 2023 8:33am April 16, 2024 9:27am must administer 30 minutes before meals/food bmi 28 Start: 01-14-2023 End: 03-31-2023 take 1 tablet by mouth three times daily 30 minutes before mealtime Phentermine (Lomaira) 8 mg tablet Discontinued 8 mg PO THREE TIMES A DAY January 14, 2023 12:00am March 31, 2023 5:40pm must administer 30 minutes before meals/food Start: 11-12-2022 End: 01-14-2023 Phentermine (Adipex-P) 37.5 mg tablet Discontinued 18.75 mg PO daily December 10, 2022 12:20pm January 14, 2023 10:02am BMI 30 probiotic (5 sources) Start: 01-31-2023 End: 05-07-2024 probiotic Discontinued PO Au 2022 12:00am May 07, 2024 2:09pm Start: 01-31-2023 probiotic Acti ve PO January 30, 2023 11:00pm Start: 01-31-2023 probiotic Acti ve PO January 31, 2023 12:00am sertraline 25 mg oral tablet (1 source) Serotonin Reuptake Inhibitor Start: 10-15-2021 End: 10-15-2021 take 1 tablet by mouth once daily sertraline (ZOLOFT) 25 mg tablet Indications: Binge eating disorder , Anxiety and depression , Fatigue, unspecified type Take 1 tablet by mouth once daily. 30 tablet 5 10/15/2021 10/15/2021 Discontinued Comment on above: Take 1 tablet by zulema th once daily. topiramate 25 mg oral tablet (5 sources) Start: 12-10-2022 End: 01-31-2023 take 1 tablet by mouth twice daily before breakfast Topiramate (Topamax) 25 mg tablet Discontinued 25 mg PO TWICE A DAY 60 December 10, 2022 12:00am January 31, 2023 2:50pm take before breakfast and before dinner traZODone hydrochloride 50 mg oral tablet (19 sources) Serotonin Reuptake Inhibitor Start: 09-04-2021 End: 08-09-2022 take 1 tablet by mouth once daily Trazodone 50 mg tablet Discontinued 50 mg PO DAILY October 20, 2021 12:00am August 09, 2022 9:37am Comment on above: Take 1 tablet by zulema th daily at bedtime. valACYclovir 500 mg oral tablet (6 sources) Herpesvirus Nucleoside Analog DNA Polymerase Inhibitor, Herpes Simplex Virus Nucleoside Analog DNA Polymerase Inhibitor, Herpes Zoster Virus Nucleoside Analog DNA Polymerase Inhibitor Start: 03-05-2024 End: 03-10-2024 take 1 tablet by mouth twice daily Valacyclovir 500 mg tablet Discontinued 500 mg PO TWICE A DAY 10 March 05, 2024 12:00am March 09, 2024 12:00am March 10, 2024 12:13am Start: 11-15-2023 End: 11-20-2023 take 1 tablet by mouth twice daily Valacyclovir 500 mg tablet Discontinued 500 mg PO TWICE A DAY 10 November 15, 2023 12:00am November 19, 2023 12:00am November 20, 2023 12:06am 24 hr venlafaxine 37.5 mg extended release oral capsule (6 sources) Serotonin and Norepinephrine Reuptake Inhibitor Start: 11-08-2023 End: 11-14-2023 take 1 capsule by mouth once daily Venlafaxine (Effexor Xr) 37.5 mg capsule,extended release 24hr Discontinued 37.5 mg PO DAILY 7 November 08, 2023 12:00am November 14, 2023 8:04am Start: 11-08-2023 End: 11-14-2023 take 1 capsule by mouth once daily Venlafaxine (Effexor Xr) 75 mg capsule,extended release 24hr Discontinued 75 mg PO DAILY 60 November 08, 2023 12:00am November 14, 2023 8:04am Problems Active Problems Problem Classification Problem Date Documented Da te Episodic/Chronic Abdominal pain (4 sources) Left upper quadrant pain; Translations: [Left upper quadrant pain] 06-11-2024 Episodic Anxiety disorders (20 sources) Mixed anxiety and depressive disorder; Translations: [Anxiety disorder, unspecified] Onset: 4 Chronic Coma; stupor; and brain damage (1 source) Daytime somnolence; Translations: [Somnolence] Episodic Disorders of lipid metabolism (14 sources) Hyperlipidemia; Translations: [Hyperlipidemia, unspecified] 10-19-2022 Chronic Comment on above: recommend MUFA/PUFA rich diet, heart healthy. labs reviewed, repeat 6 months after dietary changes Esophageal disorders (2 sources) Laryngopharyngeal reflux; Translations: [Gastro-esophageal reflux disease without esophagitis] Chronic Essential hypertension (20 sources) Hypertensive disorder; Translations: [Essential (primary) hypertension] Onset: 4 Chronic Comment on above: [place]. medication . recommend 5-10% weight loss. EKG WNL CONTROLLED WITH MED Headache; including migraine (14 sources) Migraine; Translations: [Migraine, unspecified, not intractable, without status migrainosus] 09-04-2020 Chronic Comment on above: mild. Immunizations and screening for infectious disease (20 sources) Patient encounter status; Translations: [Encounter for screening for human immunodeficiency virus [HIV]] Episodic Malaise and fatigue (16 sources) Fatigue; Translations: [Chronic fatigue, unspecified] Onset: 4 Chronic Malaise and fatigue (14 sources) Fatigue; Translations: [Other fatigue] Episodic Comment on above: fatigue with 40# santhosh ght gain in 18 monthsrequesting hormonal testing Menopausal disorders (3 sources) Menopausal flushing; Translations: [Menopausal and female climacteric states] 11-08-2023 Chronic Miscellaneous mental health disorders (2 sources) Binge eating disorder; Translations: [Binge eating disorder] Chronic Mood disorders (13 sources) Depressive disorder; Translations: [Other specified depressive episodes] Onset: 8 07-07-2007 Chronic Nutritional deficiencies (17 sources) Vitamin D deficiency; Translations: [Vitamin D deficiency, unspecified] Chronic Comment on above: supplementation Osteoarthritis (20 sources) Arthritis; Translations: [Unspecified osteoarthritis, unspecified site] Onset: 4 Chronic Comment on above: 5-10% weight reducti on recommended Other bone disease and musculoskeletal deformities (20 sources) Segmental and somatic dysfunction; Translations: [Segmental and somatic dysfunction of cervical region] 05-01-2018 Episodic Other bone disease and musculoskeletal deformities (7 sources) Segmental and somatic dysfunction of cervical region; Translations: [Nonallopathic lesions, cervical region] Episodic Other bone disease and musculoskeletal deformities (7 sources) Segmental and somatic dysfunction of lumbar region; Translations: [Nonallopathic lesions, lumbar region] Episodic Other bone disease and musculoskeletal deformities (7 sources) Segmental and somatic dysfunction of pelvic region; Translations: [Nonallopathic lesions, pelvic region] Episodic Other bone disease and musculoskeletal deformities (7 sources) Segmental and somatic dysfunction of thoracic region; Translations: [Nonallopathic lesions, thoracic region] Episodic Other connective tissue disease (17 sources) Foot pain; Translations: [Pain in right foot] 03-06-2021 Episodic Other endocrine disorders (6 sources) Polycystic ovary syndrome; Translations: [Polycystic ovarian syndrome] 10-16-2022 Chronic Comment on above: elevated testosteron e. other labs reviewed. Other endocrine disorders (9 sources) Polycystic ovarian syndrome; Translations: [Polycystic ovaries] 10-12-2022 Chronic Other gastrointestinal disorders (14 sources) Irritable bowel syndrome; Translations: [Irritable bowel syndrome without diarrhea] 08-15-2020 Chronic Comment on above: occasional consitpat ion, does well. Other gastrointestinal disorders (7 sources) Irritable bowel syndrome without diarrhea; Translations: [Irritable bowel syndrome] Onset: 4 10-12-2022 Chronic Other gastrointestinal disorders (19 sources) Constipation; Translations: [Constipation, unspecified] Episodic Other gastrointestinal disorders (15 sources) Chronic constipation; Translations: [Other constipation] Episodic Comment on above: likely increased due to anatomical changes in pelvic loffor strength and distribution after hysterectomy. recommend elimination diet, colonoscopy and GI eval. consider naturopathic intervention if normal and/or pelvic floor physical therapy. Other gastrointestinal disorders (10 sources) Heartburn; Translations: [Heartburn] 07-13-2024 Episodic Other gastrointestinal disorders (3 sources) Finding of abdomen; Translations: [Other specified symptoms and signs involving the digestive system and abdomen] 07-13-2024 Episodic Other gastrointestinal disorders (2 sources) Heartburn; Translations: [Heartburn] Onset: 5 Episodic Other gastrointestinal disorders (1 source) Constipation, unspecified; Translations: [Constipation, unspecified] Onset: 5 Episodic Other hereditary and degenerative nervous system conditions (1 source) Restless legs; Translations: [Restless legs syndrome] Chronic Other nervous system disorders (3 sources) Cervical myelopathy; Translations: [Disease of spinal cord, unspecified] 04-16-2024 Chronic Other nervous system disorders (1 source) Disease of spinal cord, unspecified; Translations: [Disease of spinal cord, unspecified] Onset: 4 Chronic Other nervous system disorders (1 source) Lesion of plantar nerve, left lower limb; Translations: [Lesion of plantar nerve, left lower limb] Onset: 4 Chronic Other nutritional; endocrine; and metabolic disorders (6 sources) Obesity; Translations: [Other obesity] 10-16-2022 Chronic Comment on above: Nutrition plan: plan WW. s/p ux design manager consult Medication plan: lomaira 1-3x daily. didn't tolerate topamax, discussed contrave- didn't like. trial given. control- hystBehavior intervention: discussed holiday support and habit of exercise at home instead of snackingExercise plan: increase daily steps and NEAT activity, spontaneous exercise at work Other nutritional; endocrine; and metabolic disorders (11 sources) Body mass index 30+ - obesity; Translations: [Body mass index (BMI) 32.0-32.9, adult] 10-20-2022 Chronic Other nutritional; endocrine; and metabolic disorders (1 source) Body mass index (BMI) 32.0-32.9, adult; Translations: [Body Mass Index 32.0-32.9, adult] 10-12-2022 Chronic Other nutritional; endocrine; and metabolic disorders (7 sources) Other obesity; Translations: [Obesity, unspecified] 10-12-2022 Chronic Other nutritional; endocrine; and metabolic disorders (1 source) Body mass index (BMI) 30.0-30.9, adult; Translations: [Body Mass Index 30.0-30.9, adult] 12-10-2022 Chronic Other nutritional; endocrine; and metabolic disorders (1 source) Weight gain; Translations: [Abnormal weight gain] Episodic Other nutritional; endocrine; and metabolic disorders (9 sources) Overweight in adulthood with body mass index of 25 or more but less than 30; Translations: [Body mass index (BMI) 28.0-28.9, adult] 02-21-2023 Episodic Comment on above: [id number]% with nutr itional and medication intervention recommendations.initial obesity assessment lab panel reviewed- see individual a/p comments for fu info Other nutritional; endocrine; and metabolic disorders (5 sources) Body mass index (BMI) 28.0-28.9, adult; Translations: [Body Mass Index 28.0-28.9, adult] 01-14-2023 Episodic Other nutritional; endocrine; and metabolic disorders (1 source) Body mass index (BMI) 27.0-27.9, adult; Translations: [Body Mass Index 27.0-27.9, adult] 05-13-2023 Episodic Other screening for suspected conditions (not mental disorders or infectious disease) (2 sources) Encounter for screening for other suspected endocrine disorder; Translations: [Screening for thyroid disorders] Onset: Episodic Other skin disorders (3 sources) Hypertrichosis; Translations: [Hypertrichosis, unspecified] 04-20-2024 Episodic Other upper respiratory infections (11 sources) Nasopharyngitis; Translations: [Acute nasopharyngitis [common cold]] 02-27-2022 Episodic Residual codes; unclassified (15 sources) Insomnia; Translations: [Insomnia, unspecified] Episodic Comment on above: negative sleep study . Residual codes; unclassified (14 sources) Positive measurement finding; Translations: [Positive test for human papillomavirus (HPV)] 08-15-2020 Episodic Residual codes; unclassified (6 sources) Reduced libido; Translations: [Decreased libido] 10-16-2022 Episodic Comment on above: discussed bupropion may improve, weight loss. Residual codes; unclassified (5 sources) Decreased libido; Translations: [Decreased libido] 10-12-2022 Episodic Residual codes; unclassified (4 sources) Insomnia, unspecified; Translations: [Insomnia, unspecified] 12-10-2022 Episodic Residual codes; unclassified (3 sources) Procedure related finding; Translations: [Encounter for cosmetic surgery] 11-17-2023 Episodic Spondylosis; intervertebral disc disorders; other back problems (7 sources) Degeneration of lumbar intervertebral disc; Translations: [Other intervertebral disc degeneration of lumbar region with discogenic back pain] Onset: 5 04-16-2024 Chronic Sprains and strains (14 sources) Sprain of ankle; Translations: [Sprain of unspecified ligament of right ankle, initial encounter] 12-01-2020 Episodic Unclassified (1 source) Low back pain, unspecified; Translations: [Low back pain, unspecified] Onset: Viral infection (20 sources) Herpes zoster; Translations: [Zoster without complications] Episodic Past or Other Problems Problem Classification Problem Date Documented Da te Episodic/Chronic Other aftercare (1 source) Encounter for removal of internal fixation device; Translations: [Encounter for removal of internal fixation device] Onset: 06-22-2024 Episodic Other non-traumatic joint disorders (1 source) Pain in left knee; Translations: [Pain in left knee] Onset: 01-24-2024 Episodic Other skin disorders (1 source) Hypertrichosis, unspecified; Translations: [Hypertrichosis, unspecified] Onset: 05-08-2024 Episodic Residual codes; unclassified (1 source) Encounter for cosmetic surgery; Translations: [Encounter for cosmetic surgery] Onset: 05-08-2024 Episodic Spondylosis; intervertebral disc disorders; other back problems (20 sources) Cervical radiculopathy; Translations: [Radiculopathy, cervical region] Onset: 04-16-2024 Episodic Urinary tract infections (20 sources) Urinary tract infectious disease; Translations: [Urinary tract infection, site not specified] Onset: 02-07-2024 01-22-2021 Episodic Results Test Name Value Interpretation Reference Range Facility Estradiolon 11-08-2024 ESTRADIOL 294.0 pg/mL [facility] Comment on above: Order Comment: ADD O N- MG2 3 A OR MG2 5 M Result Comment: FEMA LES ADULT FEMALE: Premenopausal: 15-350 pg/mL(E2 levels vary widely through the menstrual cycle) Postmenopausal: <10 pg/mL FAMILIA STAGES MEAN AGE REFERENCE RANGES Stage I(>14 days and prepubertal) 7.1 years Undetectable-20 pg/mLL Stage II 10.5 years Undetectable-24 pg/mL Stage III 11.6 years Undetectable-60 pg/mL Stage IV 12.3 years 15-85 pg/mL Stage V 14.5 years 15-350 pg/mL Puberty onset (transition from Familia stage I to Famiila stage II) occurs for girls at a median age of 10.5 (/- 2) years. There is evidence that it may occur up to 1 year earlier in obese girls and in girls. Progression through Familia stages is variable. Familia stage V (adult) should be reached by age 18. Performed By: #### L [id number], L3300.1750, L503.0106, L506.1001, L3100.5055, L503.6550 ####[facility] [id number] [place], [place], [id number] FSH and LHon 11-08-2024 FSH 18.9 mIU/mL Normal [facility] Comment on above: Order Comment: ADD O N- MG2 3 A OR MG2 5 M Result Comment: FEMA LE: Follicular: 1.4 - 18.1 mIU/mL Midcycle: 3.4 - 33.4 mIU/mL Luteal: 1.5 - 9.1 mIU/mL Post Menopause: 23.0 - 116.3 mIU/mL MALE: 1.4 - 18.1 mIU/mL Performed By: #### L 503.6030, L3300.1750, L503.0106, L506.1001, L3100.5055, L503.6550 ####[facility] [id number] [place], [place], [id number] LH 17.2 mIU/mL Normal [facility] Comment on above: Order Comment: ADD O N- MG2 3 A OR MG2 5 M Result Comment: FEMA LE: Follicular: 1.9-12.5 mIU/mL Midcycle: 8.7-76.3 mIU/mL Luteal: 0.5-16.9 mIU/mL Post Menopause: 15.9-54.0 mIU/mL MALE: 20-70 Years: 1.5-9.3 mIU/mL >70 Years: 3.1-34.6 mIU/mL Performed By: #### L [id number], [id number], L503.0106, L506.1001, L3100.5055, L503.6550 ####[facility] [id number] [place], [place], [phone]) Ferritinon 11-08-2024 Ferritin [Mass/Vol] 83 ng/mL Normal 22-378 [facility] Comment on above: Order Comment: ADD O N- MG2 3 A OR MG2 5 M Performed By: #### L 503.6030, L3300.1750, L503.0106, L506.1001, L3100.5055, L503.6550 #### [facility] [address] [place], [address] Iron+Iron Binding Capacityon 11-08-2024 Iron [Mass/Vol] 104 ug/dL Normal 50-170 [facility] Comment on above: Order Comment: ADD O N- MG2 3 A OR MG2 5 M Performed By: #### L [id number], [id number], L503.0106, L506.1001, L3100.5055, L503.6550 #### [facility] [address] [place], [address] IRON SATURATION 36.0 Normal 13-59 [facility] Comment on above: Order Comment: ADD O N- MG2 3 A OR MG2 5 M Performed By: #### L [id number], [id number], L503.0106, L506.1001, L3100.5055, L503.6550 #### [facility] [address] [place], [address] TIBC 286 ug/dL Normal 250-450 [facility] Comment on above: Order Comment: ADD O N- MG2 3 A OR MG2 5 M Performed By: #### L [id number], [id number], L503.0106, L506.1001, L3100.5055, L503.6550 #### [facility] [address] [place], [address] UIBC 182 ug/dL Low 228-428 [facility] Comment on above: Order Comment: ADD O N- MG2 3 A OR MG2 5 M Performed By: #### L [id number], [id number], L503.0106, L506.1001, L3100.5055, L503.6550 #### [facility] [address] [place], [address] Marketing Strategy Manager Office Visit Reporton 11-08-2024 Marketing Strategy Manager Office Visit Report [facility] [address], [address] [place] [address] OFFICE VISIT Date of Service: 11/08/24 MR#: [id number] Acct: [id number] Name: RAMANDEEP SNOW Rep #: [id number] : 1980 Provider: DINAH Gonzalez Age/Sex: 44/F Location: [facility] [place] Status: Signed Intake Vital Signs 06/11/24 08:07 09/14/24 13:28 11/08/24 08:06 Height 5 ft 2 in 5 ft 1 in 5 ft 1 in Weight: 146 lb 6 oz BMI 27.6 BP 128/82 H 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 Nurse Required: No Is patient in pain?: No Allergies hydromorphone (From Dilaudid) Allergy (Verified 11/08/24 08:10) Rash chlorhexidine Adverse Reaction (Intermediate, Verified 11/08/24 08:10) rash Medications ???Medication ???Instructions ???Recorded ???Confirmed ???Type ibuprofen 400 mg tablet 400 mg PO Q6H PRN pain #30 tabs 11/08/24 Rx ferrous sulfate 325 mg (65 mg 325 mg PO Q OTHER DAY 08/09/2210/28 History iron) tablet,delayed release cholecalciferol (vitamin D3) 25 50 mcg PO DAILY 01/31/23 11/08/24 History mcg (1,000 unit) capsule (Vitamin D3) multivitamin 1 tab PO QDAY 04/16/24 11/08/24 Hi story Lactobacillus acidophilus 250 500 mmu cells PO DAILY 05/07/24 History million cell capsule (Probiotic Acidophilus) losartan 100 1 tab PO QDAY #90 tabs 06/11/24 Rx mg-hydrochlorothiazid e 12.5 mg tablet meloxicam 7.5 mg tablet 7.5 mg PO BID PRN pain 06/11/24 History famotidine 20 mg tablet 20 mg PO QDAY #30 tabs 07/13/24 Rx linaclotide 145 mcg capsule 145 mcg PO QAM #60 caps 07/31/24 0 11/08/24 Rx (Linzess) tizanidine 2 mg tablet 2 mg PO Q8H PRN muscle spasticity 08/27/24 11/08/24 History linaclotide 290 mcg capsule 290 mcg PO QAM #60 caps 11/02/24 0 11/08/24 Rx (Linzess) pantoprazole 40 mg tablet,delayed 40 mg PO BID #90 tabs 11/02/24 Rx release Is last menstrual period known: No Post menopausal: No Patient : No : No Control Method: [facility] Medical History (Updated 11/08/24 @ 10:47 by Cindy Montaño, HYDROPONICS WORKER-C) Left upper quadrant abdominal pain Depression Alcohol use Low iron DDD (degenerative disc disease), cervical Gastric reflux History of pain when walking Preop exam for internal medicine Hyperlipidemia Screening for thyroid disorder Arthritis Chronic fatigue Wears contact lenses Back pain Restless legs History of IBS Non-smoker Hypertension Preoperative evaluation to rule out surgical contraindication Vitamin D deficiency UTI (urinary tract infection) Preventative health care Insomnia Migraines IBS (irritable bowel syndrome) Hypertension Frequent UTI HSV (herpes simplex virus) infection Condyloma HPV test positive Shingles Constipation Surgical History Hx of foot surgery H/O bilateral salpingectomy Hx of dilation and curettage History of removal of retained hardware History of LAVH History of bunionectomy of both great toes Family History Other Anxiety Arthritis Breast cancer Depression Diabetes Heart disease Hyperlipemia Hypertension Social History Smoking Status: Never smoker alcohol intake: current alcohol intake frequency: a few times a week Alcohol type: wine details: social substance use type: does not use caffeine: Yes what type of physical activity do you participate in: walking seatbelt use: always do you feel safe at home: Yes additional social history: Inocencio- [employer] Mait. Patient works at [employer] History 1 Elective abortions Hx Para 0 Spontaneous abortions Hx # Term Pregnancies Ectopic pregnancies Hx # Pregnancies Multiple births # of living children HPI Encounter for routine gynecological examination Details: RAMANDEEP SNOW is a 44 year old who presents for annual exam. She reports she has noticed irritability; hot flashes; mood swings. She is s/p hyst. She also has vaginal dryness which makes intercourse uncomfortable. Interested in having her labs drawn. Otherwise she is doing well today. Last PAP: prior to hyst History of abnormal PAP: no Last mammogram: 2024; normal. History of abnormal mammogram: no. Colon cancer screenin; normal Other preventative health care screenings: Winifred Pedro; PCP. Female Reproductive History Questions: metorrhagia: No, sexually active: Yes, dyspareunia: No and PCB: No Menopausal Symptoms: Yes hot flashes, Yes night sweats, Yes weight change, Yes mood changes and Yes sleep problems ROS Const Constitutional: Reports night sweats; Denies chills, fatigue, fever(s), headache(s) o (more content not included)... Normal [facility] Vitamin B12on 11-08-2024 Cobalamin (Vitamin B12) [Mass/Vol] 599 pg/mL Normal 180-914 [facility] Comment on above: Order Comment: ADD O N- MG2 3 A OR MG2 5 M Performed By: #### L 503.6030, L3300.1750, L503.0106, L506.1001, L3100.5055, L503.6550 #### [facility] [address] [place], [place], [address] Vitamin D,25 Hydroxyon 11-08 Vitamin D 25-OH 49.2 ng/mL Normal 30-100 [facility] Comment on above: Order Comment: ADD O N- MG2 3 A OR MG2 5 M Result Comment: Shama min D Status Deficiency: <20 ng/mL (50nmol/L) Insufficiency: 20-30 ng/mL (50-75 nmol/L) Sufficiency: 30-100 ng/mL (75-250 nmol/L) Toxicity: >100 ng/mL (>250 nmol/L) Performed By: #### L 503.6030, L3300.1750, L503.0106, L506.1001, L3100.5055, L503.6550 ####[facility] [address] [place], [address] CBC, Employeeon 11-05-2024 Absolute Lymph 2.29 X10 3/uL Normal 0.83-4.51 [facility] Comment on above: Performed By: #### L 100.0200, L400.0100, L500.2900 ####[facility] [address] [place], [address] Absolute Neut 2.5 X10 3/uL Normal 2.0-7.7 [facility] Comment on above: Performed By: #### L 100.0200, L400.0100, L500.2900 ####[facility] [address] [place], [address] Basophils/100 WBC (Bld) 1.3 % High 0-1 [facility] Comment on above: Performed By: #### L 100.0200, L400.0100, L500.2900 ####[facility] [address] [place], [address] Eosinophils/100 WBC (Bld) 2.6 % Normal 0-5 [facility] Comment on above: Performed By: #### L 100.0200, L400.0100, L500.2900 ####[facility] [address] [place], [address] Erythrocyte distribution width (RBC) [Ratio] 12.2 % Normal 11.6-14.6 [facility] Comment on above: Performed By: #### L 100.0200, L400.0100, L500.2900 ####[facility] [address] [place], [address] Hematocrit (Bld) [Volume fraction] 39.7 % Normal 37-47 [facility] Comment on above: Performed By: #### L 100.0200, L400.0100, L500.2900 ####[facility] [address] [place], [address] Hemoglobin (Bld) [Mass/Vol] 13.7 g/dL Normal 12.0-15.0 [facility] Comment on above: Performed By: #### L 100.0200, L400.0100, L500.2900 ####[facility] [address] [place], [address] Lymphocytes/100 WBC (Bld) 42.1 % High 19-41 [facility] Comment on above: Performed By: #### L 100.0200, L400.0100, L500.2900 ####[facility] [address] [place], [address] MCH (RBC) [Entitic mass] 31.5 pg Normal 27.0-32.0 [facility] Comment on above: Performed By: #### L 100.0200, L400.0100, L500.2900 ####[facility] [address] [place], [address] MCHC (RBC) [Mass/Vol] 34.5 g/dL Normal 32-36 [facility] Comment on above: Performed By: #### L 100.0200, L400.0100, L500.2900 ####[facility] [address] [place], [address] MCV (RBC) [Entitic vol] 91.3 fL Normal 81-99 [facility] Comment on above: Performed By: #### L 100.0200, L400.0100, L500.2900 ####[facility] [address] [place], [address] Monocytes/100 WBC (Bld) 7.7 % Normal 0-10 [facility] Comment on above: Performed By: #### L 100.0200, L400.0100, L500.2900 ####[facility] [address] [place], [address] Neutrophils/100 WBC (Bld) 46.1 % Low 47-70 [facility] Comment on above: Performed By: #### L 100.0200, L400.0100, L500.2900 ####[facility] [address] [place], [address] NRBC # 0.00 10 3/uL Normal 0-5 [facility] Comment on above: Performed By: #### L 100.0200, L400.0100, L500.2900 ####[facility] [address] [place], [address] Nucleated RBC (Bld) [#/Vol] 0 10*3/uL Normal 0-5 [facility] Comment on above: Performed By: #### L 100.0200, L400.0100, L500.2900 ####[facility] [address] [place], [address] Platelet mean volume (Bld) [Entitic vol] 9.4 fL Normal 6.2-12.0 [facility] Comment on above: Performed By: #### L 100.0200, L400.0100, L500.2900 ####[facility] [address] [place], [address] Platelets (Bld) [#/Vol] 301 10*3/uL Normal 150-450 [facility] Comment on above: Performed By: #### L 100.0200, L400.0100, L500.2900 ####[facility] [address] [place], [address] RBC (Bld) [#/Vol] 4.35 10*6/uL Normal 4.2-5.4 [facility] Comment on above: Performed By: #### L 100.0200, L400.0100, L500.2900 ####[facility] [address] [place], [address] RDW SD 41.1 fl Normal 35.1-43.9 [facility] Comment on above: Performed By: #### L 100.0200, L400.0100, L500.2900 ####[facility] [address] [place], [address] WBC (Bld) [#/Vol] 5.4 10*3/uL Normal 4.4-11.0 [facility] Comment on above: Performed By: #### L 100.0200, L400.0100, L500.2900 ####[facility] [address] [place], [address] Employee Profileon 5 Cholesterol in LDL [Mass/Vol] 116 mg/dL Normal 0-130 [facility] Comment on above: Performed By: #### L 100.0200, L400.0100, L500.2900 ####[facility] [address] [place], [address] Urinalysis, Employeeon 11-05 BILIRUBIN URINE Normal Negative [facility] Comment on above: Order Comment: Urine , Random Result Comment: NOT COLLECTED Performed By: #### L 100.0200, L400.0100, L500.2900 ####[facility] [address] [place], [address] Clarity (U) Normal Clear [facility] Comment on above: Order Comment: Urine , Random Result Comment: NOT COLLECTED Performed By: #### L 100.0200, L400.0100, L500.2900 ####[facility] [address] [place], [address] Color (U) Normal Yellow [facility] Comment on above: Order Comment: Urine , Random Result Comment: NOT COLLECTED Performed By: #### L 100.0200, L400.0100, L500.2900 ####[facility] [address] [place], [address] GLUCOSE, UR Normal Normal [facility] Comment on above: Order Comment: Urine , Random Result Comment: NOT COLLECTED Performed By: #### L 100.0200, L400.0100, L500.2900 ####[facility] [address] [place], [address] KETONE UR Normal Negative [facility] Comment on above: Order Comment: Urine , Random Result Comment: NOT COLLECTED Performed By: #### L 100.0200, L400.0100, L500.2900 ####[facility] [address] [place], [address] LEUK ESTERASE Normal Negative [facility] Comment on above: Order Comment: Urine , Random Result Comment: NOT COLLECTED Performed By: #### L 100.0200, L400.0100, L500.2900 ####[facility] [address] [place], [address] Nitrite Ql (U) Normal Negative [facility] Comment on above: Order Comment: Urine , Random Result Comment: NOT COLLECTED Performed By: #### L 100.0200, L400.0100, L500.2900 ####[facility] [address] [place], [address] OCCULT BLOOD-UR Normal Negative [facility] Comment on above: Order Comment: Urine , Random Result Comment: NOT COLLECTED Performed By: #### L 100.0200, L400.0100, L500.2900 ####[facility] [address] [place], [address] pH UR Normal 5.0 - 8.0 [facility] Comment on above: Order Comment: Urine , Random Result Comment: NOT COLLECTED Performed By: #### L 100.0200, L400.0100, L500.2900 ####[facility] [address] [place], [address] PROT DIPSTX Normal Negative [facility] Comment on above: Order Comment: Urine , Random Result Comment: NOT COLLECTED Performed By: #### L 100.0200, L400.0100, L500.2900 ####[facility] [address] [place], [address] SP.GR. DIPSTX Normal 1.002-1.030 [facility] Comment on above: Order Comment: Urine , Random Result Comment: NOT COLLECTED Performed By: #### L 100.0200, L400.0100, L500.2900 ####[facility] [address] [place], [address] UR Preservative Normal [facility] Comment on above: Order Comment: Urine , Random Result Comment: NOT COLLECTED Performed By: #### L 100.0200, L400.0100, L500.2900 ####[facility] [address] [place], [address] UROBILI Normal Normal [facility] Comment on above: Order Comment: Urine , Random Result Comment: NOT COLLECTED Performed By: #### L 100.0200, L400.0100, L500.2900 ####[facility] [address] [place], [address] Gastroenterology Visit Repor ton 10-26-2024 Gastroenterology Visit Report [facility] [address] [place] [address] OFFICE VISIT Date of Service: 10/26/24 MR#: [id number] Acct: [id number] Name: RAMANDEEP SNOW Rep #: [id number] : 1980 Provider: ZEINA Bach Age/Sex: 44/F Location: [facility] Status: Signed Intake Vital Signs 09/14/24 13:28 Height 5 ft 1 in Intake Visit Reasons: Test Result Chief Complaint: GERD Allergies hydromorphone (From Dilaudid) Allergy (Verified 10/26/24 07:40) Rash chlorhexidine Adverse Reaction (Intermediate, Verified 10/26/24 07:40) rash Medications ???Medication ???Instructions ???Recorded ???Confirmed ???Type ibuprofen 400 mg tablet 400 mg PO Q6H PRN pain #30 tabs 10/26/24 Rx ferrous sulfate 325 mg (65 mg 325 mg PO Q OTHER DAY 08/09/22 History iron) tablet,delayed release cholecalciferol (vitamin D3) 25 50 mcg PO DAILY 01/31/23 10/26/24 History mcg (1,000 unit) capsule (Vitamin D3) multivitamin 1 tab PO QDAY 04/16/24 10/26/24 Hi story Lactobacillus acidophilus 250 500 mmu cells PO DAILY 05/07/24 History million cell capsule (Probiotic Acidophilus) losartan 100 1 tab PO QDAY #90 tabs 06/11/24 Rx mg-hydrochlorothiazid e 12.5 mg tablet meloxicam 7.5 mg tablet 7.5 mg PO BID PRN pain 06/11/24 History famotidine 20 mg tablet 20 mg PO QDAY #30 tabs 07/13/24 Rx pantoprazole 40 mg tablet,delayed 40 mg PO QDAY #90 tabs 07/13/24 0 10/26/24 Rx release linaclotide 145 mcg capsule 145 mcg PO QAM #60 caps 07/31/24 0 10/26/24 Rx (Linzess) tizanidine 2 mg tablet 2 mg PO Q8H PRN muscle spasticity 08/27/24 10/26/24 History Nurse's Note: Patient is here for test results, isn't sure if there is a treatment plan or not. Still having many of the same symptoms since previous appointment. [facility] Medical History Left upper quadrant abdominal pain Depression Alcohol use Low iron DDD (degenerative disc disease), cervical Gastric reflux History of pain when walking Preop exam for internal medicine Hyperlipidemia Screening for thyroid disorder Arthritis Chronic fatigue Wears contact lenses Back pain Restless legs History of IBS Non-smoker Hypertension Preoperative evaluation to rule out surgical contraindication Vitamin D deficiency UTI (urinary tract infection) Preventative health care Insomnia Migraines IBS (irritable bowel syndrome) Hypertension Frequent UTI HSV (herpes simplex virus) infection Condyloma HPV test positive Shingles Constipation Surgical History Hx of foot surgery H/O bilateral salpingectomy Hx of dilation and curettage History of removal of retained hardware History of [facility] History of bunionectomy of both great toes Family History Other Anxiety Arthritis Breast cancer Depression Diabetes Heart disease Hyperlipemia Hypertension Social History Smoking Status: Never smoker alcohol intake: current alcohol intake frequency: a few times a week Alcohol type: wine details: social substance use type: does not use caffeine: Yes what type of physical activity do you participate in: walking seatbelt use: always do you feel safe at home: Yes additional social history: Inocencio- [employer] [employer] Pallavi. Patient works at [employer] HPI Chief Complaint: GERD Details: RAMANDEEP SNOW, is a 44 F who presents to the office today for f/u. BGI established 2.7.25 with constipation for the past 10 years worsening after partial hysterectomy. Taking senna and stool softener daily. Having one bm per day that is not complete. Also having heartburn and LUQ pain. No hx of EGD and last colonoscopy in 2019 with recommendation for repeat in 10 years. Start Linzess, Start PPI, Pepcid PRN EGD 4.25; - LA Grade A reflux esophagitis with no bleeding. Biopsied. - Bilious gastric fluid. - Erythematous mucosa in the gastric body. Biopsied. - Normal examined duodenum. OV 5..25 Pt is still having intermittent issues with GERD in the evening however PPI has been helpful. She is having bm while taking Linzess 145mcg daily but feels she could not be evacuating. ROS Const Constitutional: Positive for fatigue, headache(s) and weight change ENT ENT: Positive for headache(s) Gastro GI: Positive for abdominal pain, bloating, constipation and heartburn Musc Musculoskeletal: Positive for joint pain, back pain, muscle weakness, stiffness and restless legs Neuro Neurology: Positive for headache(s) and restless legs Psych Psychiatric: Positive for anxiety, Positive for depression and Positive for inattentiven (more content not included)... Normal [facility] Breast imaging reportOrdered By: Alden Garcia on 10-25-2024 Study report [facility] Imaging Services [address] [place] [address] SCRN MAMM (CAD)W/SYDNEY BILAT MR#: [id number] Acct: [id number] Name: RAMANDEEP SNOW Rep #: [id number] : 1980 F 44 From: Craig Garcia MD PCP: Dr. Wniifred Pedro MD Status: REG CLI Study:SCRN MAMM (CAD)W/SYDNEY BILAT Date of Exa m: 10/25/24 Exam# [id number] Ordering Dr: Sangeeta Dia CNM EXAM: SCRN MAMM (CAD)W/SYDNEY BILAT DATE: 10/25/2024 CLINICAL HISTORY: F, Age 44 y/o , SCREENING MAMMOGRAM FOR BREAST CANCER No family history. BREAST CANCER RISK ASSESSMENT: Not assessed TECHNIQUE: Bilateral screening digital breast tomosynthesis with 2D and 3D images. Computeraided detection. COMPARISON: Prior exam(s) dated October 25, 2023.. FINDINGS: TISSUE DENSITY: The breast tissue is heterogenously dense, which may obscure small masses. Bilateral Breast Mammographic Findings: No significant masses, calcifications or other abnormalities are identified. No suspicious masses, areas of developing architectural distortion, or suspicious calcifications. There has been no significant interval change. BI/SCRN MAMM (CAD)W/SYDNEY BILAT IMPRESSION: OVERALL FINAL ASSESSMENT: BIRADS 1 NEGATIVE RECOMMENDATION: Routine annual follow-up in 1 Year A letter with findings and recommendations will be mailed to the patient. Reading Location: [place] [address] CC: ZOHREH Dia; Dr. Winifred Pedro MD ~ Armature Coil Winder: Signed [facility] SCRN MAMM (CAD)W/SYDNEY BILATo n 10-25-2024 SCRN MAMM (CAD)W/SYDNEY BILAT [facility] Imaging Services [address] [place] [address] SCRN MAMM (CAD)W/SYDNEY BILAT MR#: [id number] Acct: [id number] Name: RAMANDEEP SNOW Rep #: [id number] : 1980 F 44 From: Alden upton MD PCP: Dr. Winifred Pedro MD Status: REG CLI Study: SCRN MAMM (CAD)W/SYDNEY BILAT Date of Exam: 10/05 07/31 Exam# [id number] Ordering Dr: Sangeeta Dia CNM EXAM: SCRN MAMM (CAD)W/SYDNEY BILAT DATE: 10/25/2024 CLINICAL HISTORY: F, Age 44 y/o , SCREENING MAMMOGRAM FOR BREAST CANCER No family history. BREAST CANCER RISK ASSESSMENT: Not assessed TECHNIQUE: Bilateral screening digital breast tomosynthesis with 2D and 3D images. Computer aided detection. COMPARISON: Prior exam(s) dated October 25, 2023.. FINDINGS: TISSUE DENSITY: The breast tissue is heterogenously dense, which may obscure small masses. Bilateral Breast Mammographic Findings: No significant masses, calcifications or other abnormalities are identified. No suspicious masses, areas of developing architectural distortion, or suspicious calcifications. There has been no significant interval change. BI/SCRN MAMM (CAD)W/SYDNEY BILAT IMPRESSION: OVERALL FINAL ASSESSMENT: BIRADS 1 NEGATIVE RECOMMENDATION: Routine annual follow-up in 1 Year A letter with findings and recommendations will be mailed to the patient. Reading Location: [place] [address] CC: ZOHREH Dia; Dr. 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 Normal [facility] H. PYLORI STOOL AGon 025 H PYLORI STL AG Negative Normal Negative [facility] Comment on above: Result Comment: Perf ormed at: - [facility] [address] [id number] [employer]: Elan Kirkland PhD, Phone: [phone] Performed By: #### L 7418.7418 ####[facility] [address] [place], [address] Stool Helicobacter pylori an tigen detection by immunoassayOrdered By: Marley Evans on 10-10-2024 H. pylori Ag IA Ql (Stl) Negative Negative [facility] Comment on above: Performed at: [address] [id number] Director: Elan Kirkland PhD, Phone: [phone] EGD Reporton 09-14-2024 EGD Report [facility] Medical Records Department [address] [place] [address] EGD Report MR#: [id number] Acct: [id number] Name: RAMANDEEP SNOW Rep #: [id number] : 1980 44 From: Srinivas Burgos DO PCP: Dr. Winifred Pedro MD Status:[facility] Patient Name: Ramandeep Snow Procedure Date: 09/14/2024 2:14 PM Date of : 1980 Age: 44 Procedure: Upper GI endoscopy Indications: Heartburn, Suspected esophageal reflux Providers: Srinivas Burgos DO Medicines: Monitored Anesthesia Care Patient Profile: This is a 44 year old female. Refer to note in patient chart for documentation of history and physical. Patient has symptoms of chronic epigastric abdominal pain, chronic heartburn and chronic nausea. Patient has symptoms of chronic heartburn. Complications: No immediate complications. Procedure: Pre-Anesthesia Assessment: - Prior to the procedure, a History and Physical was performed, and patient medications and allergies were reviewed. The patient is competent. The risks and benefits of the procedure and the sedation options and risks were discussed with the patient. All questions were answered and informed consent was obtained. Patient identification and proposed procedure were verified by the physician in the pre-procedure area. Mental Status Examination: alert and oriented. Airway Examination: normal oropharyngeal airway and neck mobility. Respiratory Examination: clear to auscultation. CV Examination: normal. Prophylactic Antibiotics: The patient does not require prophylactic antibiotics. Prior Anticoagulants: The patient has taken no anticoagulant or antiplatelet agents except for NSAID medication. ASA Grade Assessment: II - A patient with mild systemic disease. After reviewing the risks and benefits, the patient was deemed in satisfactory condition to undergo the procedure. The anesthesia plan was to use monitored anesthesia care (MAC). Immediately prior to administration of medications, the patient was re-assessed for adequacy to receive sedatives. The heart rate, respiratory rate, oxygen saturations, blood pressure, adequacy of pulmonary ventilation, and response to care were monitored throughout the procedure. The physical status of the patient was re-assessed after the procedure. After obtaining informed consent, the endoscope was passed under direct vision. Throughout the procedure, the patient's blood pressure, pulse, and oxygen saturations were monitored continuously. The Endoscope was introduced through the mouth, and advanced to the second part of duodenum. The upper GI endoscopy was accomplished without difficulty. The patient tolerated the procedure well. Scope In: 2:24:40 PM Scope Out: 2:27:28 PM Total Procedure Duration Time 0 hours 2 minutes 48 seconds Findings: LA Grade A (one or more mucosal breaks less than 5 mm, not extending between tops of 2 mucosal folds) esophagitis with no bleeding was found 38 to 40 cm from the incisors. Biopsies were taken with a cold forceps for histology. Verification of patient identification for the specimen was done. Estimated blood loss was minimal. Bilious fluid was found in the gastric body. Patchy mildly erythematous mucosa without bleeding was found in the gastric body. Biopsies were taken with a cold forceps for histology. Verification of patient identification for the specimen was done. Estimated blood loss was minimal. Biopsies were taken with a cold forceps for Helicobacter pylori testing. Verification of patient identification for the specimen was done. Estimated blood loss was minimal. The examined duodenum was normal. Impression: - LA Grade A reflux esophagitis with no bleeding. Biopsied. - Bilious gastric fluid. - Erythematous mucosa in the gastric body. Biopsied. - Normal examined duodenum. Recommendation: - Discharge patient to home. - Resume previous diet. - Continue present medications. - Await pathology results. Procedure Code(s): --- Professional --- 94433, Esophagogastroduodeno scopy, flexible, transoral; with biopsy, single or multiple CPT copyright 2021 [employer]. All rights reserved. The codes documented in this report are preliminary and upon physician coder review may be revised to meet current compliance requirements. Srinivas Burgos DO 09/14/2024 2:38:41 PM This report has been signed electronically. Number of Addenda: 0 Note Initiated On: 09/14/2024 2:14 PM 09/14/24 1438 Date Srinivas Berumen Signature: Date (if indicated) CC: Dr. Winifred Pedro MD; Srinivas Burgos DO Date Dictated: 09/14/24 1414 Date Transcribed: Armature Coil Winder: DENNY Contreras [facility] MR/POSTOP.[facility] 09-14-2024 MR/POSTOP.[facility] Medical Records Department [address] [place] [address] Anesthesia Postop Eval I 09/14/247 MR#: [id number] Acct: [id number] Name: RAMANDEEP SNOW Rep #: [id number] : 1980 44 From: Mark Santiago PCP: Dr. Winifred Pedro MD Status:REG SDC Y Race: C Location: [place] [address] Anesthesia: Postop Eval I Current Vital Signs Temperature: 98 F Pulse Rate: 82 Blood Pressure: 127/88 Respiratory Rate: 16 Pulse Ox: 97 Oxygen Delivery Method: Room Air Assessment Airway patent: Yes Spontaneous unlabored respirations: Yes Mental status: Awake and Calm nausea: No Vomiting: No Anesthesia Complication: No Fluid Hydration Crystalloid volume administer (ml): 30 Total IV fluid infused: 30 Progress Note Anesthesia document: Postop Eval 1 completed: Yes 09/14/241436 Date Mark Malhotra Signature: Date CC: Signed [facility] [facility] MR/[id number] 09-14-2024 MR/POSTOPAN2 [facility] Medical Records Department [address] [place] [address] Anesthesia Postop Eval II 09/14/24 1459 MR#: [id number] Acct: [id number] Name: RAMANDEEP SNOW Rep #: [id number] : 1980 44 From: Eliceo Ruiz MD PCP: Dr. Winifred Pedro MD Status:REG SDC Y Race: C Location: [address] Anesthesia Postop Eval I Sum Postop Eval Completion status Anesthesia document: Postop Eval 1 completed: Yes Anesthesia Postop Eval I Summary Anesthesia Postop Eval I Summary: Anesthesia Postop Eval I: Assessment Summary Airway patent Yes 09/14/24 14:37 [email or web address] Spontaneous unlabored Yes 09/14/24 14:37 [email or web address] respirations Mental status Awake,Calm 09/14/24 14:37 [email or web address] nausea No 09/14/24 14:37 [email or web address] Vomiting No 09/14/24 14:37 [email or web address] Anesthesia Postop Eval I: Fluid Summary Crystalloid volume administer 30 09/14/24 14:37 [email or web address] (ml) Colloids volume administered ( ml) Blood Product volume administered (ml) Total IV fluid infused 30 09/14/24 14:37 [email or web address] Anesthesia Postop Eval I: Summary Notes Anesthesia Complication No 09/14/24 14:37 [email or web address] Anesthesia Complication Comment: Post-operative progress note Anesthesia: Postop Eval II Evaluation Mental status: Awake Pain Level: 0 nausea: No Vomiting: No 09/14/24 1459 Date Eliceo Ruiz MD Cosigner Signature: Date CC: Signed Normal [facility] Surgery Specimen Level Joyce 09-14-2024 Surgery Specimen Level IV -------- Patient Age/Sex Location Account Attending Physician -------- RAMANDEEP SNOW 44/F EN [id number] Srinivas Burgos DO -------- Specimen: [id number] Received: 09/17/24 Status: BHARATHI Lopez Num: [id number] Spec Type: EGD BIOPSY Subm Dr: Srinivas Burgos DO HEADER OPERATION: EGD with biopsy PRE-OP DIAGNOSIS: Heartburn, abdominal symptoms, constipation TISSUE SUBMITTED: A- Distal esophagus biopsy -------- MICROSCOPIC DIAGNOSIS A. Distal esophagus, biopsy: * Squamous mucosa with mild reactive changes and 2 eosinophils per high power field. * Columnar mucosa negative for goblet cell metaplasia. MICROSCOPIC DESCRIPTION Slides are reviewed. GROSS DESCRIPTION A. Received in formalin in a container labeled with the patient's name, date of , and distal esophagus biopsy are 2 tirado-pink fragments of mucosal tissue, each measuring 0.3 x 0.3 x 0.3 cm. Submitted in toto in A1. [facility] 09/23/2024 [facility]:[id number] -------- Patient Age/Sex Location Account Attending Physician -------- RAMANDEEP SNOW 44/F EN [id number] Srinivas Burgos DO -------- Signed (signature on file) Dr. Zhanna Cruz MD 09/23/24 1453 -------- Normal [facility] Comment on above: Performed By: #### P SUIV ####[facility] [address] [place], [address] Orthopedic Visit Reporton Orthopedic Visit Report [facility] [address] [place] [address] [address] [place] [address] OFFICE VISIT Date of Service: 08/27/24 MR#: [id number] Acct: [id number] Name: RAMANDEEP SNOW Rep #: [id number] : 1980 Provider: Dr. Armando Salguero so, DO Age/Sex: 44/F Location: [facility] Status: Signed Intake Vital Signs 06/11/24 08:07 08/20/24 10:32 Height 5 ft 2 in 5 ft 2 in Weight: 151 lb 4 oz BMI 27.6 BP 130/84 H Blood Pressure Location Lt brachial Position Sitting Respiration 16 Pulse 68 Pulse Source Monitor Temp 98.4 F Temp Source Temporal Pulse Oximetry (%) 96 Oxygen Delivery Method room air Intake Visit Reasons: BILATERAL KNEES Chief Complaint: Bilateral knee pain Accompanied by: Self Is patient in pain?: Yes Pain scale (1-10): 5 Allergies hydromorphone (From Dilaudid) Allergy (Verified 08/27/24 15:44) Rash isopropyl alcohol (From ChloraPrep Clear) Allergy (Verified 08/27/24 15:44) Hives chlorhexidine Adverse Reaction (Intermediate, Verified 08/27/24 15:44) rash Medications ???Medication ???Instructions ???Recorded ???Confirmed ???Type ibuprofen 400 mg tablet 400 mg PO Q6H PRN pain #30 tabs 08/27/24 Rx ferrous sulfate 325 mg (65 mg 325 mg PO Q OTHER DAY 08/09/22 History iron) tablet,delayed release cholecalciferol (vitamin D3) 25 50 mcg PO DAILY 01/31/23 08/27/24 History mcg (1,000 unit) capsule (Vitamin D3) multivitamin 1 tab PO QDAY 04/16/24 08/27/24 Hi story Lactobacillus acidophilus 250 500 mmu cells PO DAILY 05/07/24 History million cell capsule (Probiotic Acidophilus) losartan 100 1 tab PO QDAY #90 tabs 06/11/24 Rx mg-hydrochlorothiazid e 12.5 mg tablet meloxicam 7.5 mg tablet 7.5 mg PO BID PRN 06/11/24 5 History famotidine 20 mg tablet 20 mg PO QDAY #30 tabs 07/13/24 Rx pantoprazole 40 mg tablet,delayed 40 mg PO QDAY #90 tabs 07/13/24 0 08/27/24 Rx release linaclotide 145 mcg capsule 145 mcg PO QAM #60 caps 07/31/24 0 08/27/24 Rx (Linzess) tizanidine 2 mg tablet mg PO PRN 08/27/24 08/27/24 Histor y PFSH Medical History Constipation Left upper quadrant abdominal pain Depression Alcohol use Low iron DDD (degenerative disc disease), cervical Gastric reflux History of pain when walking Preop exam for internal medicine Hyperlipidemia Screening for thyroid disorder Arthritis Chronic fatigue Wears contact lenses Back pain Restless legs History of IBS Non-smoker Hypertension Preoperative evaluation to rule out surgical contraindication Vitamin D deficiency UTI (urinary tract infection) Preventative health care Insomnia Migraines IBS (irritable bowel syndrome) Hypertension Frequent UTI HSV (herpes simplex virus) infection Condyloma HPV test positive Shingles Surgical History H/O bilateral salpingectomy Hx of dilation and curettage History of removal of retained hardware History of LAVH History of bunionectomy of both great toes Family History Other Anxiety Arthritis Breast cancer Depression Diabetes Heart disease Hyperlipemia Hypertension Social History Smoking Status: Never smoker alcohol intake: current alcohol intake frequency: a few times a week Alcohol type: wine details: social substance use type: does not use caffeine: Yes what type of physical activity do you participate in: walking seatbelt use: always do you feel safe at home: Yes additional social history: Inocencio- [employer]. Patient works at [employer] HPI BILATERAL KNEES Details: This documentation accurately reflects the service provided and the decisions made by me, Dr. Armando Del Rosario, DO 08/27/24 0958. Part of today???s visit was documented by Arlyn Rene ATC, acting as scribe. RAMANDEEP SNOW is a 44 year old F here today for bilateral knee pain. Patient rates her pain a 5/10 today and states they are pretty sore. Patient states the last injection that was given on 01/02/2024 lasted her about 7 months and just started bothering her about 4-6 weeks ago. She denies any recent falls/injuries that caused the knee pain to come. Patient would like steroid injections today as they have given her relief in the past. 01/02/2024: new patient, bilateral knee pain. She states that she had bilateral bunion correction in 2019 and her knee pain has worsened since then, even worse over the past year. She denies any surgery or injury to the knees or back. complains of pain mostly over her anterior knee, worse with stairs. popping and clicking, which is not painful. (more content not included)... Normal [facility] PT D/C Summary (1)on 025 PT D/C Summary (1) [facility] Physical Therapy [facility] [place] [address] / REHABILITATION SERVICES DISCHARGE SUMMARY MR#: [id number] Acct: [id number] Name: RAMANDEEP SNOW Rep #: [id number] : 1980 43 From: Ender Chappell PT, Cert. T, [facility] Referring Dr.: Dr. Mj Kingsley MD Status: REG RCR Insurance: [facility] [employer] SELF PAY INSURANCE Discharge Summary D/C summary: It has been my pleasure to treat RAMANDEEP SNOW referred by Dr. Mj Kingsley MD, with the diagnosis of CERVICAL DISC DEGENERATION ,MID CERVICAL REGION for a total of 11 visit(s). Discharge Date: 07/25/24 Please see the following information for a summary of their discharge status. Subjective Subjective: Seen pain management sent note Switch on different muscle tizanidine Stopped baclofen NO CASTRO . Pain is better Tried massage at [facility] Pain Bilateral Neck: Pain Intensity (Out of 10): 1 CASTRO: Pain Intensity (Out of 10): 1 Overall Improvement % Improvement: 85 Objective Objective/Function: POSTURE: rounded head shoulders forward PALAPTION: tender UT /levator mod tender NEURO: denies paresthesia/tingling ,reflexes C5-6-7 2/3 BUE: WFL MMT: grossly 4/5 CERVICAL ROM: flexion WFL ,extension WFL ,lateral flexion rotation WFL ,retraction WFL Goals Goal 1:: Patient to be I with HEP for cervical Goal Progress: Goal Met Goal 2:: Patient to improve cervical ROM for function of recovery rotation for driving . Goal Progress: Goal Met Goal 3:: Patient to demonstrate 70% improvement with less pain and CASTRO ( NEW GOAL) Goal Progress: Goal Met Goal 4:: Patient to improve neck oswestry score by 5 points to improve QOL and function Goal Progress: Goal Met Goal 5:: Patient be able to work 8 hrs min pain and CASTRO Goal Progress: Goal Met Plan Plan: D/C TO HEP D/C Information Discharge Comments: HEP d/c sentence: If there are questions or concerns regarding this patient's physical therapy, please feel free to call me at [phone]. Thank you for the referral of this patient. Sincerely, Ender Chappell, PT, Cert MDT, OCS Balance/Gait/Function al tests Balance/Special Test Scores Oswestry Neck Score: 18 Improvement % Improvement: 85 07/26/24 1217 CC: Dr. Mj Kingsley MD; Dr. Winifred Pedro MD JLA Signed Normal [facility] Gastroenterology Visit Repor ton 07-13-2024 Gastroenterology Visit Report [facility]enter[facility] [address] [place] [address] OFFICE VISIT Date of Service: 07/13/24 MR#: [id number] Acct: [id number] Name: GWENDOLYNRAMANDEEP RODRIGUEZ Rep #: [id number] : 1980 Provider: ZEINA Bach Age/Sex: 43/F Location: [facility] Status: Signed Intake Vital Signs 06/11/24 08:07 Height 5 ft 2 in Weight: 151 lb 4 oz BMI 27.6 BP 130/84 H Blood Pressure Location Lt brachial Position Sitting Respiration 16 Pulse 68 Pulse Source Monitor Temp 98.4 F Temp Source Temporal Pulse Oximetry (%) 96 Oxygen Delivery Method room air Intake Visit Reasons: Abdominal complaints Chief Complaint: constipation Care Transitions Nurse Required: No Is patient in pain?: No Allergies hydromorphone (From Dilaudid) Allergy (Verified 06/11/24 08:00) Rash isopropyl alcohol (From ChloraPrep Clear) Allergy (Verified 06/11/24 08:00) Hives chlorhexidine Adverse Reaction (Intermediate, Verified 06/11/24 08:00) rash Post menopausal: No Patient : No Have you fallen in the past year?: No Nurse's Note: OV 07.13.24 Pt here to establish care with [facility]. Pt reports constipation, ULQ abdominal pain, heartburn, trouble swallowing, gas, and bloating. Has a formed BM daily. Denies bloody stools, vomiting, and diarrhea. Pt reports prior hx of colonoscopy in 2018. No hx of an EGD. Takes esomeprazole and senna. PFSH Medical History Constipation Left upper quadrant abdominal pain Depression Alcohol use Low iron DDD (degenerative disc disease), cervical Gastric reflux History of pain when walking Preop exam for internal medicine Hyperlipidemia Screening for thyroid disorder Arthritis Chronic fatigue Wears contact lenses Back pain Restless legs History of IBS Non-smoker Hypertension Preoperative evaluation to rule out surgical contraindication Vitamin D deficiency UTI (urinary tract infection) Preventative health care Insomnia Migraines IBS (irritable bowel syndrome) Hypertension Frequent UTI HSV (herpes simplex virus) infection Condyloma HPV test positive Shingles Surgical History H/O bilateral salpingectomy Hx of dilation and curettage History of removal of retained hardware History of LAVH History of bunionectomy of both great toes Family History Other Anxiety Arthritis Breast cancer Depression Diabetes Heart disease Hyperlipemia Hypertension Social History Smoking Status: Never smoker alcohol intake: current alcohol intake frequency: a few times a week Alcohol type: wine details: social substance use type: does not use caffeine: Yes what type of physical activity do you participate in: walking seatbelt use: always do you feel safe at home: Yes additional social history: In[employer]encio- [employer]. Patient works at [employer] Chief Complaint: constipation Details: RAMANDEEP SNOW, is a 43 F who presents to the office today for establishment with [facility]. Pt has been having issues with constipation for the past 10 years but became worse after her partial hysterectomy. She takes senna and a stool softener daily which produces a bm daily in the morning but it does not ever feel complete. She has tried miralax and fiber in the past but this has not worked. She feels fatigued and bloated. She has also been struggling with heartburn and LUQ pain. She will wake up coughing and with heartburn at night. She will take esomeprazole occasionally in the evening but has never taken it consistently in the morning. She has never had an EGD but she did have a colonoscopy in 2019 with recommendation for repeat in 10 years. ROS Const Constitutional: Positive for fatigue, headache(s) and weight change; No fever(s) ENT ENT: Positive for headache(s) and difficulty swallowing Gastro GI: Positive for abdominal pain, bloating, change in bowel habits, constipation, heartburn, difficulty swallowing and excessive flatus; No belching, change in stool character, coffee ground emesis, cramping, diarrhea, feeling full early, incontinent of stools, Vomiting blood/hematemesis, Blood in stool, loose stools, Black,tarry stools, nausea/dyspepsia, pain with swallowing, vomiting or other Musc Musculoskeletal: Positive for joint pain, back pain, stiffness and restless legs Skin Skin: No yellowing of the eye or itchy eyes Neuro Neurology: Positive for headache(s), restless legs and Increased tone in limbs Psych Psychiatric: Positive for anxiety and Positive for depression Endo Endocrine: Positive for fatigue and weight change Aller/Imm Allergy/Immunologic: No itchy eyes Jony (more content not included)... Normal [facility] MR/BMS.IMBon 06-11-2024 MR/BMS.IMB [facility] [address] [place] [address] OFFICE VISIT Date of Service: 06/11/24 MR#: [id number] Acct: [id number] Name: RAMANDEEP SNOW Rep #: [id number] : 1980 Provider: Dr. Winifred donaldson MD Age/Sex: 43/F Location: [facility] Status: Signed Intake Vital Signs 05/11/24 06:22 06/11/24 08:07 Height 5 ft 2 in 5 ft 2 in Weight: 151 lb 4 oz BMI 27.6 BP 130/84 H Blood Pressure Location Lt brachial Position Sitting Respiration 16 Pulse 68 Pulse Source Monitor Temp 98.4 F Temp Source Temporal Pulse Oximetry (%) 96 Oxygen Delivery Method room air Intake Visit Reasons: BP Follow up Chief Complaint: BP follow up Care Transitions Nurse Required: No Accompanied by: Self Is patient in pain?: Yes (L foot, neck) Pain scale (1-10): 3 Allergies hydromorphone (From Dilaudid) Allergy (Verified 06/11/24 08:00) Rash isopropyl alcohol (From ChloraPrep Clear) Allergy (Verified 06/11/24 08:00) Hives chlorhexidine Adverse Reaction (Intermediate, Verified 06/11/24 08:00) rash Medications ???Medication ???Instructions ???Recorded ???Confirmed ???Type ibuprofen 400 mg tablet 400 mg PO Q6H PRN pain #30 tabs 03/06/21 06/11/24 Rx ferrous sulfate 325 mg (65 mg 325 mg PO Q OTHER DAY 08/09/22 06/11/24 History iron) tablet,delayed release cholecalciferol (vitamin D3) 25 50 mcg PO DAILY 01/31/23 06/11/24 History mcg (1,000 unit) capsule (Vitamin D3) bupropion HCl 150 mg 24 hr tablet, 150 mg PO QAM #30 tabs 04/16/24 06/11/24 Rx extended release (Wellbutrin XL) multivitamin 1 tab PO QDAY 04/16/24 06/11/24 History Lactobacillus acidophilus 250 500 mmu cells PO DAILY 05/07/24 06/11/24 History million cell capsule (Probiotic Acidophilus) esomeprazole magnesium 20 mg 20 mg PO DAILY 05/11/24 06/11/24 History capsule,delayed release (Acid Human Resource Statistician (esomeprazole)) baclofen 5 mg tablet 5 mg PO TID PRN 06/11/24 06/11/24 History losartan 100 1 tab PO QDAY #90 tabs 06/11/24 06/11/24 Rx mg-hydrochlorothiazid e 12.5 mg tablet meloxicam 7.5 mg tablet 7.5 mg PO BID PRN 06/11/24 06/11/24 History PFSH Medical History (Updated 06/11/24 @ 10:[address] Winifred Pedro MD) Left upper quadrant abdominal pain Depression Alcohol use Low iron DDD (degenerative disc disease), cervical Gastric reflux History of pain when walking Preop exam for internal medicine Hyperlipidemia Screening for thyroid disorder Arthritis Chronic fatigue Wears contact lenses Back pain Restless legs History of IBS Non-smoker Hypertension Preoperative evaluation to rule out surgical contraindication Vitamin D deficiency UTI (urinary tract infection) Preventative health care Insomnia Migraines IBS (irritable bowel syndrome) Hypertension Frequent UTI HSV (herpes simplex virus) infection Condyloma HPV test positive Shingles Constipation Surgical History (Updated 06/11/24 @ 08:07 by Sarah Avilez, SEN) H/O bilateral salpingectomy Hx of dilation and curettage History of removal of retained hardware History of LAVH History of bunionectomy of both great toes Family History Other Anxiety Arthritis Breast cancer Depression Diabetes Heart disease Hyperlipemia Hypertension Social History Smoking Status: Never smoker alcohol intake: current alcohol intake frequency: a few times a week Alcohol type: wine details: social substance use type: does not use caffeine: Yes what type of physical activity do you participate in: walking seatbelt use: always do you feel safe at home: Yes additional social history: Geo [employer] Pallavi. Patient works at [employer] Chief Complaint: BP follow up Details: RAMANDEEP SNOW, is a 43 F who presents to the office today for short-term follow-up in regards to blood pressure elevation. She has noted over the last few weeks, prior to her surgery for removal of hardware from the left ankle, that her blood pressures were still running a bit high. She is using an arm cuff. She was getting some diastolic readings that were elevated. Largely the systolics have been okay, 130 range. However the diastolics mid 80s to higher 80s, occasionally 90s. At our last visit we adjusted her medication from lisinopril???HCTZ to losartan???HCTZ 50???12.5 due to cough. That has resolved at this point. However blood pressures do remain a bit elevated. She was on a little more anti-inflammatory but did not take it for very long postsurgery. She is also on Wellbutrin which potentially could contribute a bit to that as we have discussed previous. We started that last visit due to depressive symptoms. She has tolerated Wellbutrin in the past and she was previousl (more content not included)... Normal [facility] Inital Evaluation (1) - PTon 05-24-2024 Inital Evaluation (1) - PT [facility] Physical Therapy [facility] [place] [address] / REHABILITATION SERVICES INITIAL EVALUATION MR#: [id number] Acct: [id number] Name: RAMANDEEP SNOW Rep #: [id number] : 1980 43 From: Cristina Dotson PT. T, OCS Referring Dr.: Dr. Mj Kingsley MD Status: REG RCR Insurance: [employer]/[facility] SELF PAY INSURANCE Patient's Visit Information Visit Information Visit Information: RAMANDEEP SNOW is a 43 year old F referred to Physical Therapy by Dr. Mj Kingsley MD with a diagnosis of CERVICAL DISC DEGENERATION ,MID CERVICAL REGION. Date of Evaluation: 05/24/24 Physical Therapist: Ender Chappell PT, Cert T, OCS Visit Plan Frequency: 2x /Week Duration: 3 Weeks Plan: PT INTERVENTIONS CERVICAL ROM/FLEXABILITY,MANUA L THERAPY STM /TRACTION ,STRENGTHENING ,POSTURE TRAINING AND US /ESTIM PRN Subjective Subjective: This 43 y/o female presents to physical therapy with cervical pain with radicular symptoms. Patient has cervical pain for 2 years and worse in past [address] . [address] DR Kingsley had MRI DDD and recommended PT and inbuprofron 800 mg and had x-rays showed intervertebral disc height loss is worst at C5-C6. also recommended pain management will see tomorrow. Recently had foot surgery to remove hardware 2 weeks. Patient pain located cervical spine and occiput with CASTRO. Aggravating factors sitting at computer ,bending ,driving ,lifting heavy. Alleviation factors stretching and medication. Patient condition affects QOL and function/jobs demands. Patient goals to decrease pain and manage. SOCIAL: single VOCATION: [employer] Denies paresthesia/tingling occasional fingers. Patient has some dizziness /nausea,no tinnitus. Patient symptoms affects sleeping ,Patient 2007 slipped on steps. Pain Bilateral Neck: Pain Intensity (Out of 10): 6 Pain Intensity Range: 10 Objective Objective: POSTURE: rounded head shoulders forward PALAPTION: tender UT /levator mod tender NEURO: denies paresthesia/tingling ,reflexes C5-6-7 2/3 BUE: WFL MMT: grossly 4/5 CERVICAL ROM: flexion WFL ,extension min loss ,lateral flexion rotation min loss ,retraction WFL GAIT : patient ambulates with crutches with boot with WBAT LE from surgery Special Tests C/S Radiculapathy - Left Upper limb tension test: Negative C/S Radiculapathy - Right Upper limb tension test: Negative C/S Radiculapathy - Left Spurlings: Negative C/S Radiculapathy - Right Spurlings: Negative C/S Radiculapathy - Left Cervical distraction: Negative C/S Radiculapathy - Right Cervical distraction: Negative C/S Radiculapathy - Left Relief test: Negative C/S Radiculapathy - Right Relief test: Negative C/S Radiculapathy - Valsalva: Negative Sharp Gregory: Negative Vertebral Artery Test: Negative Alar Ligament Test: Negative Balance/Special Test Scores Oswestry Neck Score: 18 Goals Goal 1:: Patient to be I with HEP for cervical Goal Time Frame: 4-6 Weeks Goal 2:: Patient to improve cervical ROM for function of recovery rotation for driving . Goal Time Frame: 4-6 Weeks Goal 3:: Patient to demonstrate 50% improvement with less pain and CASTRO Goal Time Frame: 4-6 Weeks Goal 4:: Patient to improve neck oswestry score by 5 points to improve QOL and function Goal Time Frame: 4-6 Weeks Goal 5:: Patient be able to work 8 hrs min p ain Goal Time Frame: 4-6 Weeks Rehabilitation Potential Physical Therapy Diagnosis: This patient has cervical pain with DDD from MRI with pain with positioning and motion testing thus benefit from skilled PT Rehabilitation Potential: Good Anticipated Interventions Patient/Client Instruction: Educate patient on: Condition and Plan of Care For the Purpose of:: To decrease pain, To increase ROM, To improve muscle performance and motor function, To improve ability to perform ADL's, To increase tolerance to activity/condition/po sition, To improve ability of physical actions for home/community/work/l eisure, To improve health of tissue, To decrease soft tissue restriction, To increase flexibility/ROM and To prevent re-injury Therapeutic Exercise to Include: Strength training, Body mechanics, Postural training, Flexibilty training and Active ROM For the Purpose of:: To decrease pain, To increase ROM, To improve muscle performance and motor function, To improve ability to perform ADL's, To increase tolerance to activity/condition/po sition, To improve ability of physical actions for home/community/work/l eisure, To increase flexibility/ROM and To improve tolerance to ADL's Manual Therapy Techniques to Include: Mobilization and Soft tissue mobilization Comment: CERVICAL TRACTION For the Purpose of:: To decrease pain, To increase ROM, To improve muscle performance and motor function, To improve ability to perform ADL's, To increase tolerance to activity/condition/po si (more content not included)... Normal [facility] Decalcification bone/plaqueo n 05-11-2024 Decalcification bone/plaque -------- Patient Age/Sex Location Account Attending Physician -------- REBECCA SNOWErik RODRIGUEZ 43/F [facility] [id number] Dr. Edmund Salazar DPM -------- Specimen: [id number] Received: 05/11/24 Status: BHARATHI Lopez Num: [id number] Spec Type: Bone Subm Dr: Dr. Edmund Salazar DPM HEADER OPERATION: Hardware removal of left foot, resection of osteophyte PRE-OP DIAGNOSIS: Hardware removal of the left foot, osteophyte exostosis TISSUE SUBMITTED: Bone 5th metatarsal -------- MICROSCOPIC DIAGNOSIS 5th metatarsal bone, bone biopsy: Focal reparative and reactive change. No evidence of osteomyelitis. AM.mr 05/14/2024 MICROSCOPIC DESCRIPTION Slides are reviewed. GROSS DESCRIPTION Received in fixative is one container labeled with the patient's name and designated Bone 5th metatarsal. The specimen consists of a cylindrical bone. The bone measures 0.7cm for length and 0.2cm for diameter. The specimen is totally submitted in one cassette after decalcification. AM.mr 05/11/2024 TC:5 CPT:05587,88457 -------- Patient Age/Sex Location Account Attending Physician -------- RAMANDEEP SNOW 43/F [facility] [id number] Dr. Edmund Salazar DPM -------- Signed (signature on file) Dr. Pee Rodriguez DO 05/14/24 1255 -------- Normal [facility] Comment on above: Performed By: #### P DEC #### [facility] Laboratory [address] [place], [id number] Discharge Instruction [address] [facility] Medical Records Department [address] [place] [address] Instructions for Home/Discharge Instructions 05/11/24 0943 MR#: [id number] Acct: [id number] Name: RAMANDEEP SNOW Rep #: [id number] : 1980 43 From: Edmund Salazar DPM PCP: Dr. Winifred Pedro MD Status:REG SDC Discharge Instructions Diet Discharge Diet: Light diet - advance as tolerated DC O2, CPAP, BIPAP needs Additional Home O2 Discharge instructions: No Dressing / Incision Discharge Activity: May Not Drive and Use Crutches Weight Bearing Status: No weight bearing (No weightbearing left foot) Keep extremity elevated above heart level: Operative Extremity (Keep left foot elevated with pillows for at least 50 minutes of every hour. Move hip and knee for a few minutes of every waking hour.) and Left Leg Dressing / Incision Call your doctor if your incision/area has: Continuous Slow Oozing, Sudden Increased Bleeding and Foul Smelling Discharge Call your doctor if you observe: Fever of 101 or Higher, Coldness, Increased Pain, Shortness of breath, Chest pain, Increased palpitations (irregular heartbeat), Calf discomfort and Uncontrolled pain Cleanse incision/area with: Keep Dressing Clean Dry Follow Up Care Please Follow Up With: Edmund Salazar DPM When: in 1 week at [facility], follow up sooner if needed Test Results: Test results from this visit will be discussed in further detail at your follow-up appointment, if applicable. Discharge Plan Admission Attending Provider: Edmund Salazar Primary Care Provider: Winifred Pedro Consulting Providers: Winifred Pedro Instructions Print Language: Nepali Discharge Orders/Prescriptions Prescriptions: New hydrocodone-acetamino phen 5-300 mg tablet 1 tab PO Q6H PRN (Reason: pain) 3 Days Qty: 18 0RF No Action ferrous sulfate 325 mg (65 mg iron) tablet,delayed release (DR/EC) 325 mg PO Q OTHER DAY cholecalciferol (vitamin D3) [Vitamin D3] 25 mcg (1,000 unit) capsule 50 mcg PO DAILY multivitamin Tablet 1 tab PO QDAY losartan-hydrochlorot hiazide 50-12.5 mg tablet 1 tab PO QDAY Qty: 90 1RF bupropion HCl [Wellbutrin XL] 150 mg tablet extended release 24 hr 150 mg PO QAM Qty: 30 1RF ibuprofen 400 mg tablet 400 mg PO Q6H PRN (Reason: pain) Qty: 30 0RF Probiotic Acidophilus 250 million cell capsule 500 mmu cells PO DAILY esomeprazole magnesium [Acid Human Resource Statistician (esomeprazole)] 20 mg capsule,delayed release(DR/EC) 20 mg PO DAILY Referrals / Follow Up: Winifred Pedro MD [Primary Care Provider] - Disposition Disposition (needs filled in before D/C Order can be placed): Home, Self Care 05/11/24 0945 Edmund Salazar DPM CC: Dr. Winifred Pedro MD Signed Normal [facility] Foot 2 Viewson 05-11-2024 Foot 2 Views [facility] Imaging Services [address] [place], [place] [id number] Foot 2 Views MR#: [id number] Acct: [id number] Name: RAMANDEEP SNOW Rep #: [id number] : 1980 F 43 From: Danial cuba DO PCP: Dr. Winifred Pedro MD Status: [facility] Study: Foot 2 Views Date of Exam: 05/11/24 Exam# [id number] Ordering Dr: Edmund Salazar DPM [id number] EXAM: FL FLUOROSCOPY < 1 HOUR CLINICAL INDICATION: PAIN TECHNIQUE: Fluoroscopic images performed in multiple projections. Fluoroscopic guidance was provided by a physician. Total time: 19 seconds. Total dose: 0.1161 mGy. COMPARISON: No relevant prior studies available. FINDINGS AND RAD/Foot 2 Views IMPRESSION: Intraoperative fluoroscopy. Refer to the operative note for complete details. Electronically Signed: Danial Bonilla DO at 18:43 EST , CC: YANELIS Salazar; Dr. 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 Normal [facility] Foot min 3 Viewson 4 Foot min 3 Views [facility] Imaging Services [address] [place] [address] Foot min 3 Views MR#: [id number] Acct: [id number] Name: RAMANDEEP SNOW Rep #: [id number] : 1980 F 43 From: Danial cuba DO PCP: Dr. Winifred Pedro MD Status: [facility] Study: Foot min 3 Views Date of Exam: 05/11/24 Exam# [id number] Ordering Dr: Edmund Salazar DPM [id number] EXAM: XR LEFT FOOT COMPLETE, 3 OR MORE VIEWS CLINICAL INDICATION: post op TECHNIQUE: Frontal, lateral and oblique views of the left foot. COMPARISON: Left foot MRI, 03/17/2024. FINDINGS: BONES/JOINTS: Status post explantation of hardware involving the first tarsometatarsal joint and proximal metatarsal. Lucencies due to previously identified screws are present. Periosteal reaction suggesting further healing. No definite acute fracture. SOFT TISSUES: Soft tissue swelling and minimal soft tissue emphysema. No radiopaque foreign body. RAD/Foot min 3 Views IMPRESSION: 1. Soft tissue swelling and minimal soft tissue emphysema. 2. Status post explantation of hardware involving the first tarsometatarsal joint and proximal metatarsal. Lucencies due to previously identified screws are present. Periosteal reaction suggesting further healing. No definite acute fracture. Electronically Signed: Danial Bonilla DO at 18:18 EST , CC: YANELIS Salazar; Dr. 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 Normal [facility] MR/POSTOP.KALI 05-11-2024 MR/POSTOP.[facility] Medical Records Department [address] [place] [address] Anesthesia Postop Eval I 05/11/24 0943 MR#: [id number] Acct: [id number] Name: RAMANDEEP SNOW Rep #: [id number] : 1980 43 From: Suzy Waddell CRNA PCP: Dr. Winifred Pedro MD Status:[facility] Y Race: C Location: [place] [address] Anesthesia: Postop Eval I Current Vital Signs Temperature: 96.9 F Pulse Rate: 60 Blood Pressure: 97/75 Respiratory Rate: 16 Pulse Ox: 98 Oxygen Delivery Method: Room Air Assessment Airway patent: Yes Spontaneous unlabored respirations: Yes Mental status: Awake nausea: No Vomiting: No Anesthesia Complication: No Fluid Hydration Crystalloid volume administer (ml): 250 Total IV fluid infused: 250 Progress Note Anesthesia document: Postop Eval 1 completed: Yes 05/11/24944 Date Suzy Waddell CROSSING GUARD Cosigner Signature: Date CC: Signed Normal [facility] MR/[id number] 05-11-2024 [facility] Medical Records Department [address] [place] [address] Anesthesia Postop Eval II 05/11/24 1227 MR#: [id number] Acct: [id number] Name: RAMANDEEP SNOW Rep #: [id number] : 1980 43 From: Eliceo Ruiz MD PCP: Dr. Winifred Pedro MD Status:[facility] Y Race: C Location: [facility] Anesthesia Postop Eval I Sum Postop Eval Completion status Anesthesia document: Postop Eval 1 completed: Yes Anesthesia Postop Eval I Summary Anesthesia Postop Eval I Summary: Anesthesia Postop Eval I: Assessment Summary Airway patent Yes 05/11/24 09:45 CROSSING GUARD.JDEF Spontaneous unlabored Yes 05/11/24 09:45 CROSSING GUARD.JDEF respirations Mental status Awake 05/11/24 09:45 CROSSING GUARD.JDEF nausea No 05/11/24 09:45 CROSSING GUARD.JDEF Vomiting No 05/11/24 09:45 CROSSING GUARD.JDEF Anesthesia Postop Eval I: Fluid Summary Crystalloid volume administer 250 05/11/24 09:45 CROSSING GUARD.JDEF (ml) Colloids volume administered ( ml) Blood Product volume administered (ml) Total IV fluid infused 250 05/11/24 09:45 CROSSING GUARD.JDEF Anesthesia Postop Eval I: Summary Notes Anesthesia Complication No 05/11/24 09:45 CROSSING GUARD.JDEF Anesthesia Complication Comment: Post-operative progress note Anesthesia: Postop Eval II Evaluation Mental status: Awake Pain Level: 2 nausea: No Vomiting: No 05/11/24 1227 Date Eliceo Malhotra Signature: Date CC: Signed Normal [facility] Operative Reporton 4 Operative Report [facility] Medical Records Department [address] [facility] [place] [address] Operative Report 05/11/24 09 MR#: [id number] Acct: [id number] Name: RAMANDEEP SNOW Rep #: [id number] : 1980 43 From: Edmund Salazar DPM PCP: Dr. 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, left foot Post-Operative Diagnosis: Same Surgery/Procedure Performed: Hardware removal left foot Resection of exostosis/osteophyte left 5th metatarsal Corticosteroid injection left 3rd intermetatarsal space and 4th toe director of rehabilitative services: No Type of Anesthesia: Local MAC RN Documented Start/Stop Times: Operation Date: 05/11/24 07:30 Case Time Into Pre-Op 05/11/24 06:10 Out of Pre-Op 05/11/24 07:29 Anesthesia Start 05/11/24 07:30 Into Room 05/11/24 07:30 Procedure Start 05/11/24 07:53 Procedure End 05/11/24 09:34 Anesthesia End 05/11/24 09:39 Out of Room 05/11/24 09:39 Into Recovery 05/11/24 09:41 Into Phase II Recovery 05/11/24 10:11 Out of Recovery 05/11/24 10:11 Out of Phase II 05/11/24 11:24 Procedure Start Time: 07:53 Procedure Stop Time: 09:34 Select all DRAINS/GRAFTS/IMPLANT S that apply: None Estimated Blood Loss: 3mL Specimen collected: Yes Description of specimen(s) removed: Bone (exotosis/osteophyte) left 5th metatarsal Description of surgery: Indications: 43 year old female with history of left 1st metatarsal cuneiform joint arthrodesis bunionectomy and Tailor's bunionectomy in the past.. Foot was doing well, but now has symptomatic hardware, also a exostosis 5th metatarsal and symptoms consistent with neuroma left 3rd intermetatarsal space going to 4th toe. She has pain to the sites with shoes and ambulation. She would like to proceed with the procedures as noted above. This was discussed with her in detail, reviewed the procedures, as well as the rationale of the procedures with her in detail. We discussed and reviewed the possible benefits vs risks/potential complications. The estimated healing/recovery time and protocol were reviewed with her in detail. Reviewed the goals and the expectations. She expressed understanding and agreement and elected to proceed forward with surgical intervention as noted above. The consent forms were reviewed with her and she freely signed them. All of her questions were answered. No guarantees or warrantees were given nor implied. She was cleared from medical standpoint to proceed with surgery. Operative Procedure: The patient was brought back into the operating room and was placed on the operating table in the supine position. Patient was carefully secured to the operating room table with a safety belt around her waist. A time out was performed and the patient was properly identified and the surgical plan was confirmed. The patient received IV antibiotic prophylaxis, 2g of Ancef. The patient received MAC anesthesia per the anesthesia team. A well padded pneumatic tourniquet was applied around her left ankle. A total of 16mL of 0.5% Bupivacaine plain was given as a local block around the 1st ray and 5th ray on her left foot after the overlying skin was cleansed with 70% Isopropyl alcohol. The left foot was scrubbed, prepped, and draped in the usual aseptic fashion. The left foot was elevated for several minutes and the left ankle pneumatic tourniquet was inflated to 250mmHg. Hardware Removal: A linear longitudinal skin incision was medially along the medial 1st metatarsal cuneiform joint fusion site - directly over the previous incision. This was done using a 15 blade. Careful dissection was completed down to the hardware. The screws and the plate were removed in toto without complication. The two compression screws across the fusion site independent of the plate were identified and removed as well, there was a significant amount of bone over the head of the screw and bonded to the screws which was gently removed which did leave a moderate void of bone to the base of the 1st metatarsal into the 1st cuneiform. Due to the void the site was packed with cancellous bone chips. Hardware removal was checked and confirmed with intraoperative fluoroscopy. The arthrodesis site was rigid and very stable, it was fused. The site was flushed with copious amounts of normal saline solution. Tissues were healthy and viable at this time. The skin was reapproximated using 4-0 Monocryl. Cavilon was painted to the edges of the sutured skin incision and steristrips were applied across the sutured skin incision. Excision of Exostosis/Osteophyte: Attention was directed to the left 5th metatarsal where an exostosis/osteophyte was noted dorsal laterally. A linear skin inc (more content not included)... Normal [facility] CBC W/Diff, Automatedon 11-2 Absolute Lymph 2.50 X10 3/uL Normal 0.83-4.51 [facility] Comment on above: Performed By: #### L 500.4050, L501.86988, L506.0400, L501.9520, L506.1000, L100.0100 ####[facility] [address] [place], [address] Absolute Neut 3.8 X10 3/uL Normal 2.0-7.7 [facility] Comment on above: Performed By: #### L 500.4050, L501.30535, L506.0400, L501.9520, L506.1000, L100.0100 ####[facility] [address] [place], [address] Basophils/100 WBC (Bld) 1.3 % High 0-1 [facility] Comment on above: Performed By: #### L 500.4050, L501.44467, L506.0400, L501.9520, L506.1000, L100.0100 ####[facility] [address] [place], [address] Eosinophils/100 WBC (Bld) 2.1 % Normal 0-5 [facility] Comment on above: Performed By: #### L 500.4050, L501.25626, L506.0400, L501.9520, L506.1000, L100.0100 ####[facility] [address] [place], [address] Erythrocyte distribution width (RBC) [Ratio] 12.9 % Normal 11.6-14.6 [facility] Comment on above: Performed By: #### L 500.4050, L501.55227, L506.0400, L501.9520, L506.1000, L100.0100 ####[facility] [address] [place], [address] Hematocrit (Bld) [Volume fraction] 42.3 % Normal 37-47 [facility] Comment on above: Performed By: #### L 500.4050, L501.41245, L506.0400, L501.9520, L506.1000, L100.0100 ####[facility] [address] [place], [address] Hemoglobin (Bld) [Mass/Vol] 13.7 g/dL Normal 12.0-15.0 [facility] Comment on above: Performed By: #### L 500.4050, L501.12353, L506.0400, L501.9520, L506.1000, L100.0100 ####[facility] [address] [place], [address] IG% 0.100 Normal 0.0-0.9 [facility] Comment on above: Result Comment: IG% - Immature Granulocytes (promyelocytes, myelocytes and metamyelocytes) > 1% indicates that a LEFT SHIFT is Present. Performed By: #### L 500.4050, L501.73265, L506.0400, L501.9520, L506.1000, L100.0100 ####[facility] [address] [place], [address] Lymphocytes/100 WBC (Bld) 35.3 % Normal 19-41 [facility] Comment on above: Performed By: #### L 500.4050, L501.09393, L506.0400, L501.9520, L506.1000, L100.0100 ####[facility] [address] [place], [address] MCH (RBC) [Entitic mass] 29.5 pg Normal 27.0-32.0 [facility] Comment on above: Performed By: #### L 500.4050, L501.82283, L506.0400, L501.9520, L506.1000, L100.0100 ####[facility] [address] [place], [address] MCHC (RBC) [Mass/Vol] 32.4 g/dL Normal 32-36 [facility] Comment on above: Performed By: #### L 500.4050, L501.31666, L506.0400, L501.9520, L506.1000, L100.0100 ####[facility] [address] [place], [address] MCV (RBC) [Entitic vol] 91.0 fL Normal 81-99 [facility] Comment on above: Performed By: #### L 500.4050, L501.52277, L506.0400, L501.9520, L506.1000, L100.0100 ####[facility] [address] [place], [address] Monocytes/100 WBC (Bld) 7.3 % Normal 0-10 [facility] Comment on above: Performed By: #### L 500.4050, L501.71337, L506.0400, L501.9520, L506.1000, L100.0100 ####[facility] [address] [place], [address] Neutrophils/100 WBC (Bld) 53.9 % Normal 47-70 [facility] Comment on above: Performed By: #### L 500.4050, L501.00981, L506.0400, L501.9520, L506.1000, L100.0100 ####[facility] [address] [place], [address] Nucleated RBC (Bld) [#/Vol] 0 10*3/uL Normal 0-5 [facility] Comment on above: Performed By: #### L 500.4050, L501.09387, L506.0400, L501.9520, L506.1000, L100.0100 ####[facility] [address] [place], [address] Platelet mean volume (Bld) [Entitic vol] 9.7 fL Normal 6.2-12.0 [facility] Comment on above: Performed By: #### L 500.4050, L501.94182, L506.0400, L501.9520, L506.1000, L100.0100 ####[facility] [address] [place], [address] Platelets (Bld) [#/Vol] 300 10*3/uL Normal 150-450 [facility] Comment on above: Performed By: #### L 500.4050, L501.02496, L506.0400, L501.9520, L506.1000, L100.0100 ####[facility] [address] [place], [address] RBC (Bld) [#/Vol] 4.65 10*6/uL Normal 4.2-5.4 [facility] Comment on above: Performed By: #### L 500.4050, L501.59675, L506.0400, L501.9520, L506.1000, L100.0100 ####[facility] [address] [place], [address] RDW SD 42.4 fl Normal 35.1-43.9 [facility] Comment on above: Performed By: #### L 500.4050, L501.38300, L506.0400, L501.9520, L506.1000, L100.0100 ####[facility] [address] [place], [address] WBC (Bld) [#/Vol] 7.1 10*3/uL Normal 4.4-11.0 [facility] Comment on above: Performed By: #### L 500.4050, L501.07910, L506.0400, L501.9520, L506.1000, L100.0100 ####[facility] [address] [place], [address] Comprehensive Metabolic Prof [facility] 04-26-2024 Albumin [Mass/Vol] 3.8 g/dL Normal 3.2-5.0 [facility] Comment on above: Performed By: #### L 500.4050, L501.80703, L506.0400, L501.9520, L506.1000, L100.0100 ####[facility] [address] [place], [address] Albumin/Globulin [Mass ratio] 1.2 {ratio} Normal 0.9-2.4 [facility] Comment on above: Performed By: #### L 500.4050, L501.39506, L506.0400, L501.9520, L506.1000, L100.0100 ####[facility] [address] [place], [address] ALK P 60 U/L Normal 45-117 [facility] Comment on above: Performed By: #### L 500.4050, L501.47403, L506.0400, L501.9520, L506.1000, L100.0100 ####[facility] [address] [place], [address] ALT [Catalytic activity/Vol] 22 U/L Normal 13-56 [facility] Comment on above: Performed By: #### L 500.4050, L501.61644, L506.0400, L501.9520, L506.1000, L100.0100 ####[facility] [address] [place], [address] AST [Catalytic activity/Vol] 13 U/L Low 15-37 [facility] Comment on above: Performed By: #### L 500.4050, L501.74264, L506.0400, L501.9520, L506.1000, L100.0100 ####[facility] [address] [place], [address] Bilirubin [Mass/Vol] 0.70 mg/dL Normal 0.20-1.00 [facility] Comment on above: Result Comment: For patients on eltrombopag therapy, use of Dimension [place] TBIL is not recommended. Performed By: #### L 500.4050, L501.29393, L506.0400, L501.9520, L506.1000, L100.0100 ####[facility] [address] [place], [address] BUN/CRE 16.4 RATIO Normal 10-20 [facility] Comment on above: Performed By: #### L 500.4050, L501.08053, L506.0400, L501.9520, L506.1000, L100.0100 ####[facility] [address] [place], [address] CA,Total 8.8 mg/dL Normal 8.5-10.1 [facility] Comment on above: Performed By: #### L 500.4050, L501.54794, L506.0400, L501.9520, L506.1000, L100.0100 ####[facility] [address] [place], [address] Chloride [Moles/Vol] 104 mmol/L Normal 98-107 [facility] Comment on above: Performed By: #### L 500.4050, L501.61740, L506.0400, L501.9520, L506.1000, L100.0100 ####[facility] [address] [place], [address] CO2 [Moles/Vol] 24.0 mmol/L Normal 21.0-32.0 [facility] Comment on above: Performed By: #### L 500.4050, L501.42192, L506.0400, L501.9520, L506.1000, L100.0100 ####[facility] [address] [place], [address] Creatinine [Mass/Vol] 0.79 mg/dL Normal 0.55-1.02 [facility] Comment on above: Result Comment: The validity of the calculated GFR GFRAA in patients over 70 years has not been determined. Clinical correlation is essential. Performed By: #### L 500.4050, L501.13357, L506.0400, L501.9520, L506.1000, L100.0100 ####[facility] [address] [place], [address] EST GFR - AA 101 mL/min Normal >60 [facility] Comment on above: Result Comment: Afri can Hungarian GFR Calc Performed By: #### L 500.4050, L501.60918, L506.0400, L501.9520, L506.1000, L100.0100 ####[facility] [address] [place], [address] GAP 9 Normal 5-15 [facility] Comment on above: Performed By: #### L 500.4050, L501.45319, L506.0400, L501.9520, L506.1000, L100.0100 ####[facility] [address] [place], [address] GFR/1.73 sq M.predicted among non-blacks MDRD (S/P/Bld) [Vol rate/Area] 83 mL/min/{1.73_m2} Normal >60 [facility] Comment on above: Result Comment: Non- GFR Calc Performed By: #### L 500.4050, L501.48443, L506.0400, L501.9520, L506.1000, L100.0100 ####[facility] [address] [place], [address] Globulin (S) [Mass/Vol] 3.1 g/dL Normal 2.2-4.2 [facility] Comment on above: Performed By: #### L 500.4050, L501.30826, L506.0400, L501.9520, L506.1000, L100.0100 ####[facility] [address] [place], [address] Glucose [Mass/Vol] 88 mg/dL Normal 74-106 [facility] Comment on above: Performed By: #### L 500.4050, L501.95941, L506.0400, L501.9520, L506.1000, L100.0100 ####[facility] [address] [place], [address] Potassium [Moles/Vol] 3.5 mmol/L Normal 3.5-5.1 [facility] Comment on above: Performed By: #### L 500.4050, L501.89566, L506.0400, L501.9520, L506.1000, L100.0100 ####[facility] [address] [place], [address] Sodium [Moles/Vol] 137 mmol/L Normal 136-145 [facility] Comment on above: Performed By: #### L 500.4050, L501.82524, L506.0400, L501.9520, L506.1000, L100.0100 ####[facility] [address] [place], [address] T PROT 6.9 g/dL Normal 6.4-8.2 [facility] Comment on above: Performed By: #### L 500.4050, L501.46348, L506.0400, L501.9520, L506.1000, L100.0100 ####[facility] [address] [place], [address] Urea nitrogen [Mass/Vol] 13 mg/dL Normal 7-18 [facility] Comment on above: Performed By: #### L 500.4050, L501.14103, L506.0400, L501.9520, L506.1000, L100.0100 ####[facility] [address] [place], [address] Free T3on 11-21-2024 Free T3 [Mass/Vol] 3.0 pg/mL Normal 2.18-3.98 [facility] Comment on above: Performed By: #### L 500.4050, L501.39275, L506.0400, L501.9520, L506.1000, L100.0100 ####[facility] [address] [place], [address] T4 Free Directon 04-26-2024 T4 FREE DIRECT 0.88 ng/dL Normal 0.76-1.46 [facility] Comment on above: Performed By: #### L 500.4050, L501.91994, L506.0400, L501.9520, L506.1000, L100.0100 ####[facility] [address] [place], [address] Thyroid Stim Hormone (TSH)on 04-26-2024 TSH 3.190 uIU/mL Normal 0.358-3.740 [facility] Comment on above: Performed By: #### L 500.4050, L501.99430, L506.0400, L501.9520, L506.1000, L100.0100 ####[facility] [address] [place], [address] Vitamin D,25 Hydroxyon 04-26 Vitamin D 25-OH 60.8 ng/mL Normal [facility] Comment on above: Result Comment: Shama min D 25(OH) Status Range Deficiency <20 ng/mL (50nmol/L) Insufficiency 20 - 30 ng/mL (50 - 75 nmol/L) Sufficiency 30 - 100 ng/mL (75 - 250 nmol/L) Toxicity >100 ng/mL (>250 nmol/L) Performed By: #### L 500.4050, L501.76036, L506.0400, L501.9520, L506.1000, L100.0100 ####[facility] [address] [place], [address] Orthopedic Visit Reporton Orthopedic Visit Report [facility] [facility] [address] [place], [place] [address] OFFICE VISIT Date of Service: 04/24/24 MR#: [id number] Acct: [id number] Name: RAMANDEEP SNOW Rep #: [id number] : 1980 Provider: Dr. Mj Kingsley MD Age/Sex: 43/F Location: [facility] Status: Signed Intake Vital Signs 04/18/24 11:03 04/23/24 11:39 Height 5 ft 2 in 5 ft 2 in BP 113/76 Blood Pressure Location Lt brachial Position Sitting Respiration 14 Pulse 63 Pulse Source Monitor Temp 98.8 F Temp Source Temporal Pulse Oximetry (%) 99 Oxygen Delivery Method room air Intake Visit Reasons: CERVICAL SPINE Accompanied by: Self Is patient in pain?: Yes Pain scale (1-10): 5 Allergies hydromorphone (From Dilaudid) Allergy (Verified 04/24/24 15:34) Rash isopropyl alcohol (From ChloraPrep Clear) Allergy (Verified 04/24/24 15:34) Hives chlorhexidine Adverse Reaction (Intermediate, Verified 04/24/24 15:34) rash Medications ???Medication ???Instructions ???Recorded ???Confirmed ???Type ibuprofen 400 mg tablet 400 mg PO Q6H PRN pain #30 tabs 03/06/21 04/24/24 Rx ferrous sulfate 325 mg (65 mg 325 mg PO Q OTHER DAY 08/09/22 04/24/24 History iron) tablet,delayed release cholecalciferol (vitamin D3) 25 50 mcg PO DAILY 01/31/23 04/24/24 History mcg (1,000 unit) capsule (Vitamin D3) probiotic PO 01/31/23 04/24/24 History bupropion HCl 150 mg 24 hr tablet, 150 mg PO QAM #30 tabs 04/16/24 04/24/24 Rx extended release (Wellbutrin XL) losartan 50 mg-hydrochlorothiazid e 1 tab PO QDAY #90 tabs 04/16/24 04/24/24 Rx 12.5 mg tablet multivitamin 1 tab PO QDAY 04/16/24 04/24/24 History [facility] Medical History Preop exam for internal medicine Frequent UTI UTI (urinary tract infection) Hyperlipidemia Screening for thyroid disorder Arthritis Chronic fatigue Wears contact lenses Anxiety Open wound Back pain Restless legs History of IBS Non-smoker Shortness of breath on exertion Hypertension Preoperative evaluation to rule out surgical contraindication Vitamin D deficiency Preventative health care Insomnia Migraines IBS (irritable bowel syndrome) Hypertension HSV (herpes simplex virus) infection Condyloma HPV test positive Shingles Constipation Surgical History H/O bilateral salpingectomy Hx of dilation and curettage History of removal of retained hardware History of LAVH History of bunionectomy of both great toes Family History Other Anxiety Arthritis Breast cancer Depression Diabetes Heart disease Hyperlipemia Hypertension Social History Smoking Status: Never smoker alcohol intake: current alcohol intake frequency: a few times a week Alcohol type: wine details: social substance use type: does not use caffeine: Yes what type of physical activity do you participate in: walking seatbelt use: always do you feel safe at home: Yes additional social history: Inocencio- [employer] Pallavi. Patient works at [employer] CERVICAL SPINE Details: This documentation accurately reflects the service provided and the decisions made by me, Dr. Mj Kingsley MD 04/24/24 1531. Part of today???s visit was documented by Raisa GARCIA , acting as scribe. RAMANDEEP SNOW is a 43 year old F here today for a MRI Review. Patient states her pain is about the same since the MRI. HPI from 04/16/24: RAMANDEEP SNOW is a 43 year old F here today for cervical spine pain. She has had pain for about a year. Patient denies any known injury with her pain progressively worsening. Patient notes that she looks down to do her job which is worsening her pain. Patient denies any prior cervical spine surgeries. She complains of pain in her mid cervical spine. Says that pain extends up to the base of her skull and gives her cervical migraines. Says that her balance was worsened over the several months. Sitting increases her pain. She has stiffness and achiness. She has a chronic headache. She has an occasional radiating pain into her right arm. She also has numbness and tingling into her bilateral hands. 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 Patient notes that she has seen a chiropractor for adjustments and it was hard for them to do the adjustments. She denies any injections. She completed physical therapy with the chiropractor and has been doing core exercises and a home exercise program. Patient had xrays which are here for review. Patient has tried Tylenol which isn't helpful, she takes 800mg ibuprofen for pain. She wears a lift in her left shoe of about a quarter inch. Ortho Exam General General: Yes no acut (more content not included)... Normal [facility] Spine Cervical (Routine)on 06-23-2023 Spine Cervical (Routine) [facility] Imaging Services [address] [place], [place] [address] Spine Cervical (Routine) MR#: [id number] Acct: [id number] Name: RAMANDEEP SNOW Rep #: [id number] : 1980 F 43 From: Beverly Seymour PCP: Dr. Winifred Pedro MD Status: [facility] Study: Spine Cervical (Routine) Date of Exam: Exam# [id number] Ordering Dr: Mj Kingsley MD [id number] INDICATION: pain, RADICULOPATHY BILAT UPPER EXTREMITIES EXAMINATION: MRI - MR Spine Cervical W/O Contrast TECHNIQUE: Multiplanar and multisequence MR images of the cervical spine were performed. IV Contrast Dosage and Agent: None. COMPARISON: None. __ FINDINGS: VERTEBRAE: Normal vertebral bodies and posterior elements. VERTEBRAL ALIGNMENT: Normal, including the craniocervical junction and cervicothoracic junction. No spondylolisthesis. There is preservation of the normal cervical lordosis. CERVICAL SPINAL CORD: Unremarkable in signal and morphology. Multilevel spondylosis. Central and paracentral disc bulge. Degenerative changes of the bilateral facet joints and uncovertebral joints resulting in spinal canal and foraminal narrowing as described: C2/C3: Normal disc height and morphology. Normal spinal canal and neuroforamina. C3/C4: Normal disc height and morphology. Normal spinal canal and neuroforamina. C4/C5: Mild spinal canal narrowing. C5/C6: Mild spinal canal narrowing. C6/C7: Mild spinal canal narrowing. C7/T1: Normal disc height and morphology. Normal spinal canal and neuroforamina. NECK SOFT TISSUES: No prevertebral soft tissue swelling. There is no cervical adenopathy. MRI/Spine Cervical (Routine) IMPRESSION: Multilevel spondylosis of the cervical spine. Electronically Signed: Beverly Arshad MD at 5:57 EST Reading Location ID and State: [address] [place] [address] Tel , Service support , CC: Dr. Mj Kingsley MD; Dr. 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 Normal [facility] Plastic Surgery Visit Report on 04-18-2024 Plastic Surgery Visit Report [facility] Plastic Reconstructive Surgery [address], [address] [place], [place] [address] OFFICE VISIT Date of Service: 04/18/24 MR#: [id number] Acct: [id number] Name: RAMANDEEP SNOW Rep #: [id number] : 1980 Provider: DINAH fernando Age/Sex: 43/F Location: [facility] Status: Signed Intake Vital Signs 01/02/24 08:11 04/16/24 08:29 04/18/24 11:03 Height 5 ft 2 in 5 ft 2 in 5 ft 2 in Weight: 149 lb 4 oz BMI 27.3 BP 128/84 H 113/76 Blood Pressure Location Lt brachial Lt brachial Position Sitting Sitting Respiration 16 14 Pulse 55 L 63 Pulse Source Monitor Monitor Temp 98.4 F 98.8 F Temp Source Temporal Temporal Pulse Oximetry (%) 98 99 Oxygen Delivery Method room air room air Intake Visit Reasons: Procedure - cosmetic laser Chief Complaint: Laser upper lip Accompanied by: Self Is patient in pain?: Yes (posterior neck and cervical area pain) Pain scale (1-10): 4 Allergies hydromorphone (From Dilaudid) Allergy (Verified 04/18/24 11:02) Rash isopropyl alcohol (From ChloraPrep Clear) Allergy (Verified 04/18/24 11:02) Hives chlorhexidine Adverse Reaction (Intermediate, Verified 04/18/24 11:02) rash Medications ???Medication ???Instructions ???Recorded ???Confirmed ???Type ibuprofen 400 mg tablet 400 mg PO Q6H PRN pain #30 tabs 03/06/21 04/18/24 Rx ferrous sulfate 325 mg (65 mg 325 mg PO Q OTHER DAY 08/09/22 04/18/24 History iron) tablet,delayed release cholecalciferol (vitamin D3) 25 50 mcg PO DAILY 01/31/23 04/18/24 History mcg (1,000 unit) capsule (Vitamin D3) probiotic PO 01/31/23 04/18/24 History bupropion HCl 150 mg 24 hr tablet, 150 mg PO QAM #30 tabs 04/16/24 04/18/24 Rx extended release (Wellbutrin XL) losartan 50 mg-hydrochlorothiazid e 1 tab PO QDAY #90 tabs 04/16/24 04/18/24 Rx 12.5 mg tablet multivitamin 1 tab PO QDAY 04/16/24 04/18/24 History PFSH Medical History Preop exam for internal medicine Frequent UTI UTI (urinary tract infection) Hyperlipidemia Screening for thyroid disorder Arthritis Chronic fatigue Wears contact lenses Anxiety Open wound Back pain Restless legs History of IBS Non-smoker Shortness of breath on exertion Hypertension Preoperative evaluation to rule out surgical contraindication Vitamin D deficiency Preventative health care Insomnia Migraines IBS (irritable bowel syndrome) Hypertension HSV (herpes simplex virus) infection Condyloma HPV test positive Shingles Constipation Surgical History H/O bilateral salpingectomy Hx of dilation and curettage History of removal of retained hardware History of LAVH History of bunionectomy of both great toes Family History Other Anxiety Arthritis Breast cancer Depression Diabetes Heart disease Hyperlipemia Hypertension Social History Smoking Status: Never smoker alcohol intake: current alcohol intake frequency: a few times a week Alcohol type: wine details: social substance use type: does not use caffeine: Yes what type of physical activity do you participate in: walking seatbelt use: always do you feel safe at home: Yes additional social history: [employer]- [employer] Pallavi. Patient works at [employer] Procedure - cosmetic laser Details: 43 year old female presents for presents for treatment for permanent hair reduction on her upper lip. She has had 2 previous treatments on 11/15/23 and 03/05/24. She states that she did notice a reduction of hair growth on her upper lip after her treatments. She states that she did not need to remove any hair for over a month after her last treatment and there is less hair when it did start to grow. It recently has been starting to become more bothersome for he in two areas on her upper lip. She states she has a history of PCOS and she gets thick, coarse, dark hairs on her upper lip that she plucks. She states she had been plucking on a frequent basis before her last laser treatment. Since then, she has not plucked at all and has used a dermaplaning tool to remove excess hair. There is two areas of visible hair stubble on her upper lip on the lateral portions. She states that she does have areas of melasma which started after she started lisinopril/hydrochlor othiazide for her blood pressure control. She did not notice any difference in her melasma after her last laser treatments. The following conditions are applicable to the areas being treated. Patient denies active infection in the areas to be treated. There are no dysplastic nevi. There are no tattoos. There are not any significant concurrent s (more content not included)... Normal [facility] MR/ROBERT.Sherry 04-16-2024 MR/ROBERT.NICHOLE [facility] [address] [place] [address] OFFICE VISIT Date of Service: 04/16/24 MR#: [id number] Acct: [id number] Name: RAMANDEEP SNOW Rep #: [id number] : 1980 Provider: Dr. Winifred donaldson MD Age/Sex: 43/F Location: [facility] Status: Signed Intake Vital Signs 11/14/23 08:02 01/02/24 08:11 04/10/24 13:14 04/16/24 08:29 Height 5 ft 2 in 5 ft 2 in 5 ft 2 in 5 ft 2 in Weight: 149 lb 4 oz BMI 27.3 BP 128/84 H Blood Pressure Location Lt brachial Position Sitting Respiration 16 Pulse 55 L Pulse Source Monitor Temp 98.4 F Temp Source Temporal Pulse Oximetry (%) 98 Oxygen Delivery Method room air Intake Visit Reasons: Surgery Clearance Chief Complaint: sugery clearance Care Transitions Nurse Required: No Accompanied by: Self Is patient in pain?: Yes (neck and back pain) Pain scale (1-10): 4 Allergies hydromorphone (From Dilaudid) Allergy (Verified 04/16/24 08:23) Rash isopropyl alcohol (From ChloraPrep Clear) Allergy (Verified 04/16/24 08:23) Hives chlorhexidine Adverse Reaction (Intermediate, Verified 04/16/24 08:23) rash Medications ???Medication ???Instructions ???Recorded ???Confirmed ???Type ibuprofen 400 mg tablet 400 mg PO Q6H PRN pain #30 tabs 03/06/21 04/16/24 Rx ferrous sulfate 325 mg (65 mg 325 mg PO Q OTHER DAY 08/09/22 04/16/24 History iron) tablet,delayed release cholecalciferol (vitamin D3) 25 50 mcg PO DAILY 01/31/23 04/16/24 History mcg (1,000 unit) capsule (Vitamin D3) probiotic PO 01/31/23 04/16/24 History bupropion HCl 150 mg 24 hr tablet, 150 mg PO QAM #30 tabs 04/16/24 04/16/24 Rx extended release (Wellbutrin XL) losartan 50 mg-hydrochlorothiazid e 1 tab PO QDAY #90 tabs 04/16/24 04/16/24 Rx 12.5 mg tablet multivitamin 1 tab PO QDAY 04/16/24 04/16/24 History PFSH Medical History (Updated 04/16/24 @ 08:[address] Winifred Pedro MD) Preop exam for internal medicine Frequent UTI UTI (urinary tract infection) Hyperlipidemia Screening for thyroid disorder Arthritis Chronic fatigue Wears contact lenses Anxiety Open wound Back pain Restless legs History of IBS Non-smoker Shortness of breath on exertion Hypertension Preoperative evaluation to rule out surgical contraindication Vitamin D deficiency Preventative health care Insomnia Migraines IBS (irritable bowel syndrome) Hypertension HSV (herpes simplex virus) infection Condyloma HPV test positive Shingles Constipation Surgical History H/O bilateral salpingectomy Hx of dilation and curettage History of removal of retained hardware History of LAVH History of bunionectomy of both great toes Family History Other Anxiety Arthritis Breast cancer Depression Diabetes Heart disease Hyperlipemia Hypertension Social History Smoking Status: Never smoker alcohol intake: current alcohol intake frequency: a few times a week Alcohol type: wine details: social substance use type: does not use caffeine: Yes what type of physical activity do you participate in: walking seatbelt use: always do you feel safe at home: Yes additional social history: In[employer]encio- [employer] Pallavi. Patient works at [employer] Chief Complaint: sugery clearance Details: RAMANDEEP SNOW, is a 43 F who presents to the office today for follow-up, also preop evaluation prior to left foot surgery. She had hardware from bunion surgery that does require removal at this point. 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 Injection of the third metatarsal space and fourth toe as well. This will be done under MAC and local, Dr. Salazar. Scheduled for May 11. She has a history of hypertension on the dose of lisinopril???HCTZ 10???12.5. We lowered this dose in the past I believe for cough. Seem to be doing better but with her last refill cough has returned. Blood pressure has been well-managed. We will switch at this point to losartan???HCTZ 50???12.5. I do not expect any untoward problems with this. In addition she is having a little difficulties, and various aspects of life. Some increased pain issues at work which we have discussed in the past as well, most likely related to postural things. In the past when she had some anxiety and depressive symptoms she was on Wellbutrin and tolerated that well. It has been several years since been on it. She would like to go back on it at this point in time. She tolerated it without difficulties in the past. Did not have any concerning symptoms although she felt initially when it was started, she was (more content not included)... Normal [facility] Orthopedic Visit Reporton Orthopedic Visit Report [facility] [address] [place] [address] [address] [place] [address] OFFICE VISIT Date of Service: 04/16/24 MR#: [id number] Acct: [id number] Name: RAMANDEEP SNOW Rep #: [id number] : 1980 Provider: Dr. Mj Kingsley MD Age/Sex: 43/F Location: [facility] Status: Signed Intake Vital Signs 04/10/24 13:14 04/16/24 08:29 Height 5 ft 2 in 5 ft 2 in Weight: 149 lb 4 oz BMI 27.3 BP 128/84 H Blood Pressure Location Lt brachial Position Sitting Respiration 16 Pulse 55 L Pulse Source Monitor Temp 98.4 F Temp Source Temporal Pulse Oximetry (%) 98 Oxygen Delivery Method room air Intake Visit Reasons: CERVICAL SPINE Accompanied by: Self Is patient in pain?: Yes Allergies hydromorphone (From Dilaudid) Allergy (Verified 04/16/24 15:11) Rash isopropyl alcohol (From ChloraPrep Clear) Allergy (Verified 04/16/24 15:11) Hives chlorhexidine Adverse Reaction (Intermediate, Verified 04/16/24 15:11) rash Medications ???Medication ???Instructions ???Recorded ???Confirmed ???Type ibuprofen 400 mg tablet 400 mg PO Q6H PRN pain #30 tabs 03/06/21 04/16/24 Rx ferrous sulfate 325 mg (65 mg 325 mg PO Q OTHER DAY 08/09/22 04/16/24 History iron) tablet,delayed release cholecalciferol (vitamin D3) 25 50 mcg PO DAILY 01/31/23 04/16/24 History mcg (1,000 unit) capsule (Vitamin D3) probiotic PO 01/31/23 04/16/24 History bupropion HCl 150 mg 24 hr tablet, 150 mg PO QAM #30 tabs 04/16/24 04/16/24 Rx extended release (Wellbutrin XL) losartan 50 mg-hydrochlorothiazid e 1 tab PO QDAY #90 tabs 04/16/24 04/16/24 Rx 12.5 mg tablet multivitamin 1 tab PO QDAY 04/16/24 04/16/24 History [facility] Medical History (Updated 04/16/24 @ 15:[address] Mj Kingsley MD) Preop exam for internal medicine Frequent UTI UTI (urinary tract infection) Hyperlipidemia Screening for thyroid disorder Arthritis Chronic fatigue Wears contact lenses Anxiety Open wound Back pain Restless legs History of IBS Non-smoker Shortness of breath on exertion Hypertension Preoperative evaluation to rule out surgical contraindication Vitamin D deficiency Preventative health care Insomnia Migraines IBS (irritable bowel syndrome) Hypertension HSV (herpes simplex virus) infection Condyloma HPV test positive Shingles Constipation Surgical History H/O bilateral salpingectomy Hx of dilation and curettage History of removal of retained hardware History of LAVH History of bunionectomy of both great toes Family History Other Anxiety Arthritis Breast cancer Depression Diabetes Heart disease Hyperlipemia Hypertension Social History Smoking Status: Never smoker alcohol intake: current alcohol intake frequency: a few times a week Alcohol type: wine details: social substance use type: does not use caffeine: Yes what type of physical activity do you participate in: walking seatbelt use: always do you feel safe at home: Yes additional social history: In[employer]encio- [employer] Mait. Patient works at [employer] HPI CERVICAL SPINE Details: This documentation accurately reflects the service provided and the decisions made by me, Dr. Mj Kingsley MD 04/16/24 1503. Part of today???s visit was documented by [ ], acting as scribe. RAMANDEEP SNOW is a 43 year old F here today for cervical spine pain. She has had pain for about a year. Patient denies any known injury with her pain progressively worsening. Patient notes that she looks down to do her job which is worsening her pain. Patient denies any prior cervical spine surgeries. She complains of pain in her mid cervical spine. Says that pain extends up to the base of her skull and gives her cervical migraines. Says that her balance was worsened over the several months. Sitting increases her pain. She has stiffness and achiness. She has a chronic headache. She has an occasional radiating pain into her right arm. She also has numbness and tingling into her bilateral hands. 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 Patient notes that she has seen a chiropractor for adjustments and it was hard for them to do the adjustments. She denies any injections. She completed physical therapy with the chiropractor and has been doing core exercises and a home exercise program. Patient had xrays which are here for review. Patient has tried Tylenol which isn't helpful, she takes 800mg ibuprofen for pain. She wears a lift in her left shoe of about a quarter inch. Ortho Exam General General: Yes no acute distress Neurologic: Yes alert and Yes oriented x3 Spine SPINE TESTING CERVICAL THORACIC LUMBAR Musculo (more content not included)... Normal [facility] Cerv Spine 4 or 5 Viewson Cerv Spine 4 or 5 Views [facility] Imaging Services [address] [place], [place] [address] Cerv Spine 4 or 5 Views MR#: [id number] Acct: [id number] Name: RAMANDEEP SNOW Rep #: [id number] : 1980 F 43 From: Danial cuba DO PCP: Dr. Winifred Pedro MD Status: REG CLI Study: Cerv Spine 4 or 5 Views Date of Exam: 04/12/24 Exam# [id number] Ordering Dr: Mj Kingsley MD [id number] EXAM: XR CERVICAL SPINE, 4 OR 5 VIEWS CLINICAL INDICATION: PAIN -- AP/LAT/EXT/FLEX TECHNIQUE: Frontal, lateral and bilateral oblique views of the cervical spine. COMPARISON: No relevant prior studies available. FINDINGS: VERTEBRAE: Multilevel facet, uncovertebral joint, and endplate osteophytosis. No fracture or traumatic subluxation. No abnormal motion upon flexion or extension. Degenerative changes at the craniocervical junction and C1-C2 articulations which are otherwise normal in alignment. No spondylolisthesis. Preservation of the normal cervical lordosis. DISC SPACES: Intervertebral disc height loss is worst at C5-C6. SOFT TISSUES: No significant abnormality. No prevertebral soft tissue widening. LUNG APICES: Clear. IMPRESSION: Degenerative changes. No acute osseous findings. EXAM: XR THORACIC SPINE, 3 VIEWS CLINICAL INDICATION: PAIN -- AP/LAT/EXT/FLEX TECHNIQUE: Frontal, lateral and swimmer''s views of the thoracic spine. COMPARISON: No relevant prior studies available. FINDINGS: VERTEBRAE: Multilevel facet and endplate osteophytosis. Sigmoid bidirectional curvature of the thoracic spine. No spondylolisthesis. No acute fracture or subluxation. DISC SPACES: Multilevel intervertebral disc height loss. IMPRESSION: Sigmoid bidirectional curvature of the thoracic spine. Degenerative changes. No acute osseous findings. EXAM: XR LUMBOSACRAL SPINE, 4 OR 5 VIEWS CLINICAL INDICATION: PAIN -- AP/LAT/EXT/FLEX TECHNIQUE: Frontal, lateral and bilateral oblique views of the lumbar spine. COMPARISON: Lumbar spine, 12/15/2021 FINDINGS: VERTEBRAE: Multilevel facet arthrosis. Mild apex left lumbar curvature. No fracture, spondylolysis, or spondylolisthesis. SACRUM/COCCYX: Symmetric arthrosis of the bilateral SI joints. DISC SPACES: Mild multilevel intervertebral disc height loss. GASTROINTESTINAL TRACT: Normal as visualized. Included bowel gas pattern is non-obstructive. RAD/Cerv Spine 4 or 5 Views IMPRESSION: Mild apex left lumbar curvature. Degenerative changes. No acute osseous abnormality. Electronically Signed: Danial Bonilla DO at 13:24 EST , CC: Dr. Mj Kingsley MD; Dr. 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 Normal [facility] L/S Spine Min 4 Viewson L/S Spine Min 4 Views [facility] Imaging Services [address] [place], [place] [address] L/S Spine Min 4 Views MR#: [id number] Acct: [id number] Name: RAMANDEEP SNOW Rep #: [id number] : 1980 F 43 From: Danial cuba PCP: Dr. Winifred Pedro MD Status: REG CLI Study: L/S Spine Min 4 Views Date of Exam: 04/12/24 Exam# [id number] Ordering Dr: Mj Kingsley MD [id number] EXAM: XR CERVICAL SPINE, 4 OR 5 VIEWS CLINICAL INDICATION: PAIN -- AP/LAT/EXT/FLEX TECHNIQUE: Frontal, lateral and bilateral oblique views of the cervical spine. COMPARISON: No relevant prior studies available. FINDINGS: VERTEBRAE: Multilevel facet, uncovertebral joint, and endplate osteophytosis. No fracture or traumatic subluxation. No abnormal motion upon flexion or extension. Degenerative changes at the craniocervical junction and C1-C2 articulations which are otherwise normal in alignment. No spondylolisthesis. Preservation of the normal cervical lordosis. DISC SPACES: Intervertebral disc height loss is worst at C5-C6. SOFT TISSUES: No significant abnormality. No prevertebral soft tissue widening. LUNG APICES: Clear. IMPRESSION: Degenerative changes. No acute osseous findings. EXAM: XR THORACIC SPINE, 3 VIEWS CLINICAL INDICATION: PAIN -- AP/LAT/EXT/FLEX TECHNIQUE: Frontal, lateral and swimmer''s views of the thoracic spine. COMPARISON: No relevant prior studies available. FINDINGS: VERTEBRAE: Multilevel facet and endplate osteophytosis. Sigmoid bidirectional curvature of the thoracic spine. No spondylolisthesis. No acute fracture or subluxation. DISC SPACES: Multilevel intervertebral disc height loss. IMPRESSION: Sigmoid bidirectional curvature of the thoracic spine. Degenerative changes. No acute osseous findings. EXAM: XR LUMBOSACRAL SPINE, 4 OR 5 VIEWS CLINICAL INDICATION: PAIN -- AP/LAT/EXT/FLEX TECHNIQUE: Frontal, lateral and bilateral oblique views of the lumbar spine. COMPARISON: Lumbar spine, 12/15/2021 FINDINGS: VERTEBRAE: Multilevel facet arthrosis. Mild apex left lumbar curvature. No fracture, spondylolysis, or spondylolisthesis. SACRUM/COCCYX: Symmetric arthrosis of the bilateral SI joints. DISC SPACES: Mild multilevel intervertebral disc height loss. GASTROINTESTINAL TRACT: Normal as visualized. Included bowel gas pattern is non-obstructive. RAD/L/S Spine Min 4 Views IMPRESSION: Mild apex left lumbar curvature. Degenerative changes. No acute osseous abnormality. Electronically Signed: Danial Bonilla DO at 13:25 EST , CC: Dr. Mj Kingsley MD; Dr. 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 Normal [facility] Thoracic Spine 2 Viewson Thoracic Spine 2 Views [facility] Imaging Services [address] [place] [id number] Thoracic Spine 2 Views MR#: [id number] Acct: [id number] Name: RAMANDEEP SNOW Rep #: [id number] : 1980 F 43 From: Danial cuba DO PCP: Dr. Winifred Pedro MD Status: REG CLI Study: Thoracic Spine 2 Views Date of Exam: 04/12/24 Exam# [id number] Ordering Dr: Mj Kingsley MD [id number] EXAM: XR CERVICAL SPINE, 4 OR 5 VIEWS CLINICAL INDICATION: PAIN -- AP/LAT/EXT/FLEX TECHNIQUE: Frontal, lateral and bilateral oblique views of the cervical spine. COMPARISON: No relevant prior studies available. FINDINGS: VERTEBRAE: Multilevel facet, uncovertebral joint, and endplate osteophytosis. No fracture or traumatic subluxation. No abnormal motion upon flexion or extension. Degenerative changes at the craniocervical junction and C1-C2 articulations which are otherwise normal in alignment. No spondylolisthesis. Preservation of the normal cervical lordosis. DISC SPACES: Intervertebral disc height loss is worst at C5-C6. SOFT TISSUES: No significant abnormality. No prevertebral soft tissue widening. LUNG APICES: Clear. IMPRESSION: Degenerative changes. No acute osseous findings. EXAM: XR THORACIC SPINE, 3 VIEWS CLINICAL INDICATION: PAIN -- AP/LAT/EXT/FLEX TECHNIQUE: Frontal, lateral and swimmer''s views of the thoracic spine. COMPARISON: No relevant prior studies available. FINDINGS: VERTEBRAE: Multilevel facet and endplate osteophytosis. Sigmoid bidirectional curvature of the thoracic spine. No spondylolisthesis. No acute fracture or subluxation. DISC SPACES: Multilevel intervertebral disc height loss. IMPRESSION: Sigmoid bidirectional curvature of the thoracic spine. Degenerative changes. No acute osseous findings. EXAM: XR LUMBOSACRAL SPINE, 4 OR 5 VIEWS CLINICAL INDICATION: PAIN -- AP/LAT/EXT/FLEX TECHNIQUE: Frontal, lateral and bilateral oblique views of the lumbar spine. COMPARISON: Lumbar spine, 12/15/2021 FINDINGS: VERTEBRAE: Multilevel facet arthrosis. Mild apex left lumbar curvature. No fracture, spondylolysis, or spondylolisthesis. SACRUM/COCCYX: Symmetric arthrosis of the bilateral SI joints. DISC SPACES: Mild multilevel intervertebral disc height loss. GASTROINTESTINAL TRACT: Normal as visualized. Included bowel gas pattern is non-obstructive. RAD/Thoracic Spine 2 Views IMPRESSION: Mild apex left lumbar curvature. Degenerative changes. No acute osseous abnormality. Electronically Signed: Danial Bonilla, DO at 13:25 EST , CC: Dr. Mj Kingsley MD; Dr. 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 Normal [facility] Lower Ext/No Jt/w/oon 2023 Lower Ext/No Jt/w/o [facility] Imaging Services [address] [place], [place] [address] Lower Ext/No Jt/w/o MR#: [id number] Acct: [id number] Name: RAMANDEEP NSOW Rep #: [id number] : 1980 F 43 From: Amando Seymour PCP: Dr. Winifred Pedro MD Status: REG CLI Study: Lower Ext/No Jt/w/o Date of Exam: 03/17/24 Exam# [id number] Ordering Dr: Edmund Salazar DPM [id number] EXAM: MR LEFT LOWER EXTREMITY WITHOUT INTRAVENOUS CONTRAST, FOOT CLINICAL INDICATION: pain ball of foot and 4th toe, possible neuroma, previous foot xrays TECHNIQUE: Multiplanar and multisequence MR images of the left forefoot without intravenous contrast. COMPARISON: X-ray of the left foot 06/17/2022. FINDINGS: MUSCLES: Unremarkable. No edema or myositis. FLUID: Unremarkable. No joint effusion. PLANTAR FASCIA: Unremarkable. Intact. BONES/JOINTS: Unremarkable. Normal forefoot alignment. No fracture. No bone marrow edema. No joint effusion. OTHER SOFT TISSUES: Unremarkable. OTHER FINDINGS: Old trauma and postsurgical changes 5th ray. MRI/Lower Ext/No Jt/w/o IMPRESSION: 1. Old trauma and postsurgical changes 5th ray. 2. No neuroma identified. No acute abnormality. Electronically Signed: Amando Portillo MD at 4:01 EDT , CC: YANELIS Salazar; Dr. 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 Normal [facility] Plastic Surgery Visit Report on 03-05-2024 Plastic Surgery Visit Report [facility] Plastic Reconstructive Surgery [address], [address] [place] [address] OFFICE VISIT Date of Service: 03/05/24 MR#: [id number] Acct: [id number] Name: RAMANDEEP SNOW Rep #: [id number] : 1980 Provider: DINAH fernando Age/Sex: 43/F Location: [facility] Status: Signed Intake Vital Signs 01/02/24 08:11 Height 5 ft 2 in Weight: 154 lb BMI 28.1 Intake Visit Reasons: Procedure - cosmetic laser Chief Complaint: Cosmentic laser upper lip Allergies hydromorphone (From Dilaudid) Allergy (Verified 01/02/24 08:16) Rash isopropyl alcohol (From ChloraPrep Clear) Allergy (Verified 01/02/24 08:16) Hives chlorhexidine Adverse Reaction (Intermediate, Verified 01/02/24 08:16) rash PFSH Medical History (Updated 01/23/24 @ 09:[address] Winifred Pedro MD) Frequent UTI UTI (urinary tract infection) Hyperlipidemia Screening for thyroid disorder Arthritis Chronic fatigue Wears contact lenses Anxiety Open wound Back pain Restless legs History of IBS Non-smoker Shortness of breath on exertion Hypertension Preoperative evaluation to rule out surgical contraindication Vitamin D deficiency Preventative health care Insomnia Migraines IBS (irritable bowel syndrome) Hypertension HSV (herpes simplex virus) infection Condyloma HPV test positive Shingles Constipation Surgical History H/O bilateral salpingectomy Hx of dilation and curettage History of removal of retained hardware History of [facility] History of bunionectomy of both great toes Family History Other Anxiety Arthritis Breast cancer Depression Diabetes Heart disease Hyperlipemia Hypertension Social History Smoking Status: Never smoker alcohol intake: current alcohol intake frequency: a few times a week Alcohol type: wine details: social substance use type: does not use caffeine: Yes what type of physical activity do you participate in: walking seatbelt use: always do you feel safe at home: Yes additional social history: Inocenc[employer]- [facility] Pall[employer]. Patient works at [employer] Procedure - cosmetic laser Details: 43 year old female presents for presents for treatment for permanent hair reduction on her upper lip. She had any previous treatment 11/15/23. She states that she did notice a reduction of hair growth on her lip, and bilateral axilla after her last treatment. She states that she did not need to remove any hair for over a month after her last treatment. It recently has been starting to become more bothersome for her. She states she has a history of PCOS and she gets thick, coarse, dark hairs on her upper lip that she plucks. She states she plucks on a frequent basis. There is no observable hair today. She states that she does have areas of melasma which started after she started lisinopril/hydrochlor othiazide for her blood pressure control. She did not notice any difference in her melasma after her last laser treatment. The following conditions are applicable to the areas being treated. Patient denies active infection in the areas to be treated. There are no dysplastic nevi. There are no tattoos. There are not any significant concurrent skin conditions or any inflammatory skin conditions. There are no active cold sores, open lacerations, or abrasions. There are no chronic or cutaneous viral, fungal, or bacterial diseases. Patient states she has refrained from sun exposure and tanning for the past 4 weeks. There is no history or concurrent condition of skin cancer or pre-cancerous lesions at the treatment areas. Patient denies bleeding coagulopathies. She does take aspirin on an as needed basis. She denies keloid scarring. She denies herpes simplex. She denies lupus or porphyria. She denies immunosuppressive diseases such as AIDS and HIV. She denies uncontrolled systemic diseases such as diabetes mellitus, epilepsy, or congestive heart disease. She denies photosensitivity which can lead to a rash or allergic reaction. She has polycystic ovary syndrome. She denies gold therapy. She denies radiation therapy. She denies prior use of collagen, fat injections, or dermal fillers in the areas to be treated. She denies use of anticoagulants and immunosuppressive medications. She denies herbal supplements, perfumes, or cosmetics that may affect sensitivity to light. She denies use of Accutane. For the areas to be treated, there is no damage to natural skin texture. The skin is not very dry. There are no highly vascular areas in the immediate vicinity of the treatment areas. Patient was counseled of the followin. There may be some discomfort or pain associated with treatment. (more content not included)... Normal [facility] PT D/C Summary (1)on 024 PT D/C Summary (1) [facility] Physical Therapy [facility] [place] [address] / REHABILITATION SERVICES DISCHARGE SUMMARY MR#: [id number] Acct: [id number] Name: RAMANDEEP SNOW Rep #: [id number] : 1980 43 From: Pelon Burns DPT, OCS, CSCS Referring Dr.: Dr. Armando Del Rosario DO Status: R EG RCR Insurance: [facility] [employer]/[facility] SELF PAY INSURANCE Discharge Summary D/C summary: It has been my pleasure to treat RAMANDEEP NSOW referred by Dr. Armando Del Rosario, , with the diagnosis of B knee pain PF OA for a total of 6 visit(s). Discharge Date: 01/26/24 Please see the following information for a summary of their discharge status. Subjective Subjective: Still feels stiff above knees. Knee pain is not bad lately. Steroid shots still helping. No pain with walking. Will get wierd catch in hip. No f/u scheduled with doctor Ta. Overall 87.5% better. Somedays more stiff than others. Pain B knees: Pain Intensity (Out of 10): 0 LB: Pain Intensity (Out of 10): 3 R hip: Pain Intensity (Out of 10): 0 Overall Improvement % Improvement: 87 Objective Objective/Function: Good ROM, able to squat without pain. Walkign without antalgia today. Goals Goal 1:: Pain overall 95% better and 1/10 at worst. Goal Progress: 87 Goal 2:: Sleep comfortably without waking at night due to back or knees Goal Progress: Goal Met Goal 3:: I appropriate HEOP to limit future problems( stretch and strengthen core and hips and quads. Goal Progress: Goal Met Goal 4:: LEFS 55 Goal Progress: Progressing Goal 5:: squat and recover without pain Goal Progress: Goal Met Plan Plan: d/c to HEp D/C Information d/c sentence: If there are questions or concerns regarding this patient's physical therapy, please feel free to call me at [phone]. Thank you for the referral of this patient. Sincerely, Pelon Burns, DPT, OCS, CSCS Balance/Gait/Function al tests Balance/Special Test Scores Lower Extremity Functional Score: 54 Improvement % Improvement: 87 01/26/24 0608 CC: Dr. Armando Del Rosario DO; Dr. Winifred Pedro MD EBG Signed Normal [facility] Urine Cultureon 01-25-2024 URC Escherichia coli Home Count 11,000-25,000 Escherichia coli: REACTION Ampicillin Islt HESHAM >=32 R Ampicillin+Sulbac Islt HESHAM 16 I ceFAZolin Islt HESHAM <=4 S Cefepime Islt HESHAM <=0.12 S cefTRIAXone Islt HESHAM <=0.25 S Ciprofloxacin Islt HESHAM <=0.25 S Ertapenem Islt HESHAM <=0.12 S B-Lactamase Extended Susc Islt NEG Gentamicin Islt HESHAM <=1 S Imipenem Islt HESHAM <=0.25 S levoFLOXacin Islt HESHAM <=0.12 S Nitrofurantoin Islt HESHAM <=16 S Pip+Tazo Islt HESHAM <=4 S Tobramycin Islt HESHAM <=1 S TMP SMX Islt HESHAM <=20 S Normal [facility] Comment on above: Performed By: #### L 400.0001, M100.2200 #### [facility] [address] [place], [address] Urinalysis, Completeon 01-22 BACTERIA RARE Normal None Seen [facility] Comment on above: Order Comment: SHREYAS CTOR TO SPECIFY Performed By: #### L 400.0001, M100.2200 #### [facility] [address] [place], [address] EPI,SQUAMOUS 0-5 SEEN Normal 5-10 [facility] Comment on above: Order Comment: COLLE CTOR TO SPECIFY Performed By: #### L 400.0001, M100.2200 #### [facility] [address] [place], [address] RBC 0-5 SEEN Normal 0-5 [facility] Comment on above: Order Comment: SHREYAS CTOR TO SPECIFY Performed By: #### L 400.0001, M100.2200 #### [facility] [address] [place], [address] WBC 5-10 SEEN Normal 0-5 [facility] Comment on above: Order Comment: SHREYAS CTOR TO SPECIFY Performed By: #### L 400.0001, M100.2200 #### [facility] [address] [place], [address] Mucus Ql (Urine sed) 0 SEEN Normal [facility] Comment on above: Order Comment: [facility] CTOR TO SPECIFY Performed By: #### L 400.0001, M100.2200 #### [facility] [address] [place], [address] Inital Evaluation (1) - PTon 01-05-2024 Inital Evaluation (1) - PT [facility] Physical Therapy [address] [place] [address] / REHABILITATION SERVICES INITIAL EVALUATION MR#: [id number] Acct: [id number] Name: RAMANDEEP SNOW Rep #: [id number] : 1980 43 From: Pelon Burns DPT, OCS, CSCS Referring Dr.: Dr. Armando Del Rosario DO Status: R EG RCR Insurance: [employer]/[facility] SELF PAY INSURANCE Patient's Visit Information Visit Information Visit Information: RAMANDEEP SNOW is a 43 year old F referred to Physical Therapy by Dr. Armando Del Rosario DO with a diagnosis of B knee pain PF OA. Date of Evaluation: 01/05/24 Physical Therapist: Pelon Burns DPT, OCS, CSCS Visit Plan Frequency: 2x /Week Duration: 4-6 Weeks Plan: 2x/week for 4-6(3 to start) for 1. hip stabs and LE strength and core strength with LB ROM ext focus, progrfess to home and gym exercises for core and hips/LE with list/pics. Ensure hip flexor stretches at home and rollout quad if needed. TENS and ice if sore at rest. IE HEP: quad stretch prone 30 5x daily and LAQ throughout day. Subjective Subjective: Crunching and popping in knees B for over a year and not sure what started it. Hard to climb stairs. had bunionectomy in B feet in 2019 nad pain has been worse since. Hurts to climb stairs and squat. had steroid injections B knees 3 days ago and 80% better. squatting and getting up is hard. Can walk 30 minutes then it hurts. 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 Basic ADLs are getting done with some pain with bending and stooping. Steps at home are no problem, has some pain. Hobbies: ride bike, walks reading. worse with riding and walking. No regular exercise outside of walking. Pain B knees: Pain Intensity (Out of 10): 0 Pain Intensity Range: 0 and 8 Comment: 2 with walking Objective Objective: Walks into PT without pain and good gait today, orthotic in L shoe to even out leg discrepancy. Trasnffers bed and chair I, steps reciprocal with pain desecnding adn some IR at femur and uncomfortable. AROM B knees 0-140 without pain. squatting hurts and limited but recovery is the worst B knee anterior pain reflexes 2/3 patella and achilles B sensation WNL to gross light touch B LE strength core 3+ abs and ext hip rotations er 3+ and IR 4-, abd 3+, ext 3+, flexion 4- with contralateral hip IR. quad into psoas is tight B but otherwise good flexibility. LB AROM causes central LBP with flexion< B SB L>R and ext min limited. - ant drawer adn bounce home B + patellar grind B. extremely sensitive. tender under B medial patella B and at joint line. - varus and valgus testing at B knees. Balance/Special Test Scores Lower Extremity Functional Score: 45 Goals Goal 1:: Pain overall 95% better and 1/10 at worst. Goal Time Frame: 4-6 Weeks Goal 2:: Sleep comfortably without waking at night due to back or knees Goal Time Frame: 4-6 Weeks Goal 3:: I appropriate HEOP to limit future problems( stretch and strengthen core and hips and quads. Goal Time Frame: 4-6 Weeks Goal 4:: LEFS 55 Goal Time Frame: 4-6 Weeks Goal 5:: squat and recover without pain Goal Time Frame: 4-6 Weeks Rehabilitation Potential Physical Therapy Diagnosis: knee pain and inflammation B with tightness and weakness exacerbating Rehabilitation Potential: Fair Anticipated Interventions Patient/Client Instruction: Educate patient on: Condition and Plan of Care For the Purpose of:: To decrease pain, To improve nutrient delivery to tissue, To improve muscle performance and motor function and To increase tolerance to activity/condition/po sition Therapeutic Exercise to Include: Strength training, Flexibilty training and Active ROM For the Purpose of:: To decrease pain, To increase ROM, To improve nutrient delivery to tissue, To improve muscle performance and motor function and To improve ability of physical actions for home/community/work/l eisure Manual Therapy Techniques to Include: Passive ROM and Soft tissue mobilization For the Purpose of:: To decrease pain and To improve nutrient delivery to tissue TENS: Yes Cryotherapy (ice pack, ice massage): Yes For the Purpose of:: To decrease pain, To increase ROM and To improve nutrient delivery to tissue Text: Thank you for the opportunity to evaluate your patient. For Medicare and Medicare HMO plans, please review the plan of care and approve it. It will need to be FAXED BACK to us at [phone] for Medicare purposes. For Medicare only, by signing this I certify the plan of care. Please let me know if there are questions or concerns regarding this plan of care. Physician Signature: Date : 01/05/24 5436 CC: (more content not included)... Normal [facility] Inital Evaluation (1) - PT [facility] Physical Therapy [facility] [address] [place] [address] / REHABILITATION SERVICES INITIAL EVALUATION MR#: [id number] Acct: [id number] Name: RAMANDEEP SNOW Rep #: [id number] : 1980 43 From: Pelon Burns DPT, OCS, CSCS Referring Dr.: Dr. Armando Del Rosario DO Status: R EG RCR Insurance: [employer]/[facility] SELF PAY INSURANCE Patient's Visit Information Visit Information Visit Information: RAMANDEEP SNOW is a 43 year old F referred to Physical Therapy by Dr. Armando Del Rosario DO with a diagnosis of B knee pain PF OA. Date of Evaluation: 01/05/24 Physical Therapist: Pelon Burns DPT, OCS, CSCS Visit Plan Frequency: 2x /Week Duration: 4-6 Weeks Plan: 2x/week for 4-6(3 to start) for 1. hip stabs and LE strength and core strength with LB ROM ext focus, progrfess to home and gym exercises for core and hips/LE with list/pics. Ensure hip flexor stretches at home and rollout quad if needed. TENS and ice if sore at rest. IE HEP: quad stretch prone 30 5x daily and LAQ throughout day. Subjective Subjective: Crunching and popping in knees B for over a year and not sure what started it. Hard to climb stairs. had bunionectomy in B feet in 2019 nad pain has been worse since. Hurts to climb stairs and squat. had steroid injections B knees 3 days ago and 80% better. squatting and getting up is hard. Can walk 30 minutes then it hurts. 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 Basic ADLs are getting done with some pain with bending and stooping. Steps at home are no problem, has some pain. Hobbies: ride bike, walks reading. worse with riding and walking. No regular exercise outside of walking. Pain B knees: Pain Intensity (Out of 10): 0 Pain Intensity Range: 0 and 8 Comment: 2 with walking Objective Objective: Walks into PT without pain and good gait today, orthotic in L shoe to even out leg discrepancy. Trasnffers bed and chair I, steps reciprocal with pain desecnding adn some IR at femur and uncomfortable. AROM B knees 0-140 without pain. squatting hurts and limited but recovery is the worst B knee anterior pain reflexes 2/3 patella and achilles B sensation WNL to gross light touch B LE strength core 3+ abs and ext hip rotations er 3+ and IR 4-, abd 3+, ext 3+, flexion 4- with contralateral hip IR. quad into psoas is tight B but otherwise good flexibility. LB AROM causes central LBP with flexion< B SB L>R and ext min limited. - ant drawer adn bounce home B + patellar grind B. extremely sensitive. tender under B medial patella B and at joint line. - varus and valgus testing at B knees. Balance/Special Test Scores Lower Extremity Functional Score: 45 Goals Goal 1:: Pain overall 95% better and 1/10 at worst. Goal Time Frame: 4-6 Weeks Goal 2:: Sleep comfortably without waking at night due to back or knees Goal Time Frame: 4-6 Weeks Goal 3:: I appropriate HEOP to limit future problems( stretch and strengthen core and hips and quads. Goal Time Frame: 4-6 Weeks Goal 4:: LEFS 55 Goal Time Frame: 4-6 Weeks Goal 5:: squat and recover without pain Goal Time Frame: 4-6 Weeks Rehabilitation Potential Physical Therapy Diagnosis: knee pain and inflammation B with tightness and weakness exacerbating Rehabilitation Potential: Fair Anticipated Interventions Patient/Client Instruction: Educate patient on: Condition and Plan of Care For the Purpose of:: To decrease pain, To improve nutrient delivery to tissue, To improve muscle performance and motor function and To increase tolerance to activity/condition/po sition Therapeutic Exercise to Include: Strength training, Flexibilty training and Active ROM For the Purpose of:: To decrease pain, To increase ROM, To improve nutrient delivery to tissue, To improve muscle performance and motor function and To improve ability of physical actions for home/community/work/l eisure Manual Therapy Techniques to Include: Passive ROM and Soft tissue mobilization For the Purpose of:: To decrease pain and To improve nutrient delivery to tissue TENS: Yes Cryotherapy (ice pack, ice massage): Yes For the Purpose of:: To decrease pain, To increase ROM and To improve nutrient delivery to tissue Text: Thank you for the opportunity to evaluate your patient. For Medicare and Medicare HMO plans, please review the plan of care and approve it. It will need to be FAXED BACK to us at [phone] for Medicare purposes. For Medicare only, by signing this I certify the plan of care. Please let me know if there are questions or concerns regarding this plan of care. Physician Signature: Date : 01/05/241811 CC: (more content not included)... Normal [facility] Orthopedic Visit Reporton Orthopedic Visit Report [facility] [address] [place] [address] OFFICE VISIT Date of Service: 01/02/24 MR#: [id number] Acct: [id number] Name: RAMANDEEP SNOW Rep #: [id number] : 1980 Provider: Dr. Armando jaramillo DO Age/Sex: 43/F Location: [facility] Status: Signed Intake Vital Signs 11/14/23 08:02 01/02/24 08:11 Height 5 ft 2 in 5 ft 2 in Weight: 150 lb 2 oz 154 lb BMI 27.4 28.1 BP 120/80 Blood Pressure Location Rt brachial Position Sitting Respiration 16 Pulse 68 Pulse Source Monitor Temp 98.3 F Temp Source Temporal Pulse Oximetry (%) 97 Oxygen Delivery Method room air Intake Visit Reasons: BI LAT KNEES Accompanied by: Self Allergies hydromorphone (From Dilaudid) Allergy (Verified 01/02/24 08:16) Rash isopropyl alcohol (From ChloraPrep Clear) Allergy (Verified 01/02/24 08:16) Hives chlorhexidine Adverse Reaction (Intermediate, Verified 01/02/24 08:16) rash Medications ???Medication ???Instructions ???Recorded ???Confirmed ???Type ibuprofen 400 mg tablet 400 mg PO Q6H PRN pain #30 tabs 03/06/21 01/02/24 Rx ferrous sulfate 325 mg (65 mg 325 mg PO Q OTHER DAY 08/09/22 01/02/24 History iron) tablet,delayed release cholecalciferol (vitamin D3) 25 50 mcg PO DAILY 01/31/23 01/02/24 History mcg (1,000 unit) capsule (Vitamin D3) probiotic PO 01/31/23 01/02/24 History lisinopril 20 1 tab PO DAILY #90 tabs 02/03/23 01/02/24 Rx mg-hydrochlorothiazid e 25 mg tablet phentermine 8 mg tablet (Lomaira) 8 mg PO TID #90 tabs 11/08/23 01/02/24 Rx meloxicam 15 mg tablet 15 mg PO DAILY #30 tabs 01/02/24 01/02/24 Rx PFSH Medical History Hyperlipidemia Screening for thyroid disorder Arthritis Chronic fatigue Wears contact lenses Anxiety Open wound Back pain Restless legs History of IBS Non-smoker Shortness of breath on exertion Hypertension Preoperative evaluation to rule out surgical contraindication Vitamin D deficiency Preventative health care Insomnia Migraines IBS (irritable bowel syndrome) Hypertension Frequent UTI HSV (herpes simplex virus) infection Condyloma HPV test positive Shingles Constipation Surgical History H/O bilateral salpingectomy Hx of dilation and curettage History of removal of retained hardware History of LAVH History of bunionectomy of both great toes Family History Other Anxiety Arthritis Breast cancer Depression Diabetes Heart disease Hyperlipemia Hypertension Social History Smoking Status: Never smoker alcohol intake: current alcohol intake frequency: a few times a week Alcohol type: wine details: social substance use type: does not use caffeine: Yes what type of physical activity do you participate in: walking seatbelt use: always do you feel safe at home: Yes additional social history: [employer]- [employer]. Patient works at [employer] HPI BI LAT KNEES Details: This documentation accurately reflects the service provided and the decisions made by me, Dr. Armando Del Rosario, DO 01/02/24 0741. Part of today???s visit was documented by Melissa Vazquez, acting as scribe. RAMANDEEP SNOW is a 43 year old F here today new patients for bilateral knee pain. She states that she had bilateral bunion correction in 2019 and her knee pain has worsened since then, even worse over the past year. She denies any surgery or injury to the knees or back. Patient complains of pain mostly over her anterior knee, worse with stairs. Patient has popping and clicking, which is not painful. Although she states her knees are stiff. She complains of a sharp pain in her knees with side to side movement. She is no longer able to exercise and has difficulty with stairs. she does have mild complaints of instabilty. Her pain is worse in the morning due to stiffness. Patient is sitting for her job, which is causing her to have stiffness and worsening pain. Patient denies any injections, physical therapy or bracing. Patient had xrays which are here for review. Patient notes that she has tried ibuprofen for pain as needed. Ortho Exam General General: Yes no acute distress Neurologic: Yes alert and Yes oriented x3 Psychologic: Yes reasonable and appropriate Right Knee Skin/Wound: Yes CDI, No erythema, No ecchymosis and No swelling Knee ROM: Yes ROM-Extension -20 to 0 and Yes ROM-Flexion 0-140 (125) Examination: Yes Med jt line tenderness, Yes Lat jt line tenderness, Yes Crepitus and No Eusebia's Test Stability: NML: Anterior Drawer and NML: Posterior Drawer and 1+: Valgus 0, 1+: Valgus 30 (2mm gapping), 1+: Varu (more content not included)... Normal [facility] Knee 4 or More Viewson 12-29 Knee 4 or More Views [facility] Imaging Services [address] [place], [place] [address] Knee 4 or More Views MR#: [id number] Acct: [id number] Name: RAMANDEEP SNOW Rep #: [id number] : 1980 F 43 From: Junior marcus MD PCP: Dr. Winifred Pedro MD Status: REG CLI Study: Knee 4 or More Views Date of Exam: 12/30/23 Exam# [id number] Ordering Dr: Armando Del Rosario DO [id number] STUDY: X-RAY - LEFT KNEE REASON FOR EXAM: Female, 43 years old. pain TECHNIQUE: 4 view(s) of the knee. COMPARISON: None. FINDINGS: Normal visualized distal femur. Normal visualized proximal tibia and fibula. Normal proximal tibiofibular articulation. There is no demonstrated fracture. Normal medial femorotibial compartment. Normal lateral femorotibial compartment. There is mild degenerative arthrosis of the patellofemoral articulation. There is no demonstrated joint effusion. The soft tissue structures are unremarkable. RAD/Knee 4 or More Views IMPRESSION: No acute fracture or dislocation. Mild patellofemoral osteoarthritis. Electronically Signed: Junior Carrasquillo MD at 22:58 EDT , CC: Dr. Armando Del Rosario DO; Dr. 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 Normal [facility] Knee 4 or More Views [facility] Imaging Services [address] [place] [address] Knee 4 or More Views MR#: [id number] Acct: [id number] Name: RAMANDEEP SNOW Rep #: [id number] : 1980 F 43 From: Alden upton MD PCP: Dr. Winifred Pedro MD Status: REG CLI Study: Knee 4 or More Views Date of Exam: 12/30/23 Exam# [id number] Ordering Dr: Armando Del Rosario DO [id number] STUDY: X-RAY - RIGHT KNEE REASON FOR EXAM: Female, 43 years old. Knee pain. No known injury. TECHNIQUE: 4 view(s) of the knee. COMPARISON: None. FINDINGS: Normal visualized distal femur. Normal visualized proximal tibia and fibula. Normal proximal tibiofibular articulation. Normal medial femorotibial compartment. Normal lateral femorotibial compartment. Normal patellofemoral articulation. The soft tissue structures are unremarkable. RAD/Knee 4 or More Views IMPRESSION: Normal x-ray examination of the knee. Electronically Signed: Alden Garcia MD at 15:16 EDT Reading Location ID and State: [address] [place] [address] , Service support , CC: Dr. Armando Del Rosario DO; Dr. 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 Normal [facility] Plastic Surgery Visit Report on 11-15-2023 Plastic Surgery Visit Report [facility] [address], [address] [place], [place] [address] OFFICE VISIT Date of Service: 11/15/23 MR#: [id number] Acct: [id number] Name: RAMANDEEP SNOW Rep #: [id number] : 1980 Provider: DINAH fernando Age/Sex: 43/F Location: [facility] Status: Signed Intake Vital Signs 11/08/23 08:09 11/14/23 08:02 Height 5 ft 2 in 5 ft 2 in Weight: 150 lb 2 oz BMI 27.4 BP 120/80 Blood Pressure Location Rt brachial Position Sitting Respiration 16 Pulse 68 Pulse Source Monitor Temp 98.3 F Temp Source Temporal Pulse Oximetry (%) 97 Oxygen Delivery Method room air Intake Visit Reasons: Cosmetic laser consult and treatment Chief Complaint: Cosmentic laser consult and treatment Care Transitions Nurse Required: No Is patient in pain?: No Allergies hydromorphone (From Dilaudid) Allergy (Verified 11/15/23 11:11) Rash isopropyl alcohol (From ChloraPrep Clear) Allergy (Verified 11/15/23 11:11) Hives chlorhexidine Adverse Reaction (Intermediate, Verified 11/15/23 11:11) rash Medications ???Medication ???Instructions ???Recorded ???Confirmed ???Type ibuprofen 400 mg tablet 400 mg PO Q6H PRN pain #30 tabs 03/06/21 11/15/23 Rx ferrous sulfate 325 mg (65 mg 325 mg PO Q OTHER DAY 08/09/22 11/15/23 History iron) tablet,delayed release cholecalciferol (vitamin D3) 25 50 mcg PO DAILY 01/31/23 11/15/23 History mcg (1,000 unit) capsule (Vitamin D3) probiotic PO 01/31/23 11/15/23 History lisinopril 20 1 tab PO DAILY #90 tabs 02/03/23 11/15/23 Rx mg-hydrochlorothiazid e 25 mg tablet phentermine 8 mg tablet (Lomaira) 8 mg PO TID #90 tabs 11/08/23 11/15/23 Rx cyclobenzaprine 5 mg tablet 5 mg PO HS PRN muscle spasm #30 11/14/23 11/15/23 Rx tabs valacyclovir 500 mg tablet 500 mg PO BID 5 days #10 tabs 11/15/23 11/15/23 Rx Patient : No PFSH Medical History Hyperlipidemia Screening for thyroid disorder Arthritis Chronic fatigue Wears contact lenses Anxiety Open wound Back pain Restless legs History of IBS Non-smoker Shortness of breath on exertion Hypertension Preoperative evaluation to rule out surgical contraindication Vitamin D deficiency Preventative health care Insomnia Migraines IBS (irritable bowel syndrome) Hypertension Frequent UTI HSV (herpes simplex virus) infection Condyloma HPV test positive Shingles Constipation Surgical History H/O bilateral salpingectomy Hx of dilation and curettage History of removal of retained hardware History of LAVH History of bunionectomy of both great toes Family History Other Anxiety Arthritis Breast cancer Depression Diabetes Heart disease Hyperlipemia Hypertension Social History Smoking Status: Never smoker alcohol intake: current alcohol intake frequency: a few times a week Alcohol type: wine details: social substance use type: does not use caffeine: Yes what type of physical activity do you participate in: walking seatbelt use: always do you feel safe at home: Yes additional social history: [employer] Pall[employer]. Patient works at [employer] HPI Cosmetic laser consult and treatment Details: 43 year old female presents for presents for evaluation and treatment for permanent hair reduction on her upper lip. She has not had any previous treatments for this. She states she has a history of PCOS and she gets thick, coarse, dark hairs on her upper lip that she plucks. She states she plucks on a frequent basis. There is no observable hair today because she plucked them yesterday. She also would like information on having laser hair reduction on her bilateral axilla. She states that she does have areas of melasma which started after she started lisinopril/hydrochlor othiazide for her blood pressure control. The following conditions are applicable to the areas being treated. Patient denies active infection in the areas to be treated. There are no dysplastic nevi. There are no tattoos. There are not any significant concurrent skin conditions or any inflammatory skin conditions. There are no active cold sores, open lacerations, or abrasions. There are no chronic or cutaneous viral, fungal, or bacterial diseases. Patient states she has refrained from sun exposure and tanning for the past 4 weeks. There is no history or concurrent condition of skin cancer or pre-cancerous lesions at the treatment areas. Patient denies bleeding coagulopathies. She does take aspirin on an as needed basis. She denies keloid scarring. She denies herpes simplex. She denies lupus or porphyria. (more content not included)... Normal [facility] MR/BMS.IMBon 11-14-2023 MR/BMS.IMB [facility] [address] [place] [address] OFFICE VISIT Date of Service: 11/14/23 MR#: [id number] Acct: [id number] Name: RAMANDEEP SNOW Rep #: [id number] : 1980 Provider: Dr. Winifred donaldson MD Age/Sex: 43/F Location: [facility] Status: Signed Intake Vital Signs 06/13/23 08:16 11/08/23 08:09 11/14/23 08:02 Height 5 ft 2 in 5 ft 2 in 5 ft 2 in Weight: 150 lb 2 oz BMI 27.4 BP 120/80 Blood Pressure Location Rt brachial Position Sitting Respiration 16 Pulse 68 Pulse Source Monitor Temp 98.3 F Temp Source Temporal Pulse Oximetry (%) 97 Oxygen Delivery Method room air Intake Visit Reasons: 6 M FU Chief Complaint: 6m f/u Care Transitions Nurse Required: No Accompanied by: Self Is patient in pain?: Yes (back pain) Allergies hydromorphone (From Dilaudid) Allergy (Verified 11/14/23 08:02) Rash isopropyl alcohol (From ChloraPrep Clear) Allergy (Verified 11/14/23 08:02) Hives chlorhexidine Adverse Reaction (Intermediate, Verified 11/14/23 08:02) rash Medications ???Medication ???Instructions ???Recorded ???Confirmed ???Type ibuprofen 400 mg tablet 400 mg PO Q6H PRN pain #30 tabs 03/06/21 11/14/23 Rx ferrous sulfate 325 mg (65 mg 325 mg PO Q OTHER DAY 08/09/22 11/14/23 History iron) tablet,delayed release cholecalciferol (vitamin D3) 25 50 mcg PO DAILY 01/31/23 11/14/23 History mcg (1,000 unit) capsule (Vitamin D3) probiotic PO 01/31/23 11/14/23 History lisinopril 20 1 tab PO DAILY #90 tabs 02/03/23 11/14/23 Rx mg-hydrochlorothiazid e 25 mg tablet phentermine 8 mg tablet (Lomaira) 8 mg PO TID #90 tabs 11/08/23 11/14/23 Rx cyclobenzaprine 5 mg tablet 5 mg PO HS PRN muscle spasm #30 11/14/23 11/14/23 Rx tabs PFSH Medical History Hyperlipidemia Screening for thyroid disorder Arthritis Chronic fatigue Wears contact lenses Anxiety Open wound Back pain Restless legs History of IBS Non-smoker Shortness of breath on exertion Hypertension Preoperative evaluation to rule out surgical contraindication Vitamin D deficiency Preventative health care Insomnia Migraines IBS (irritable bowel syndrome) Hypertension Frequent UTI HSV (herpes simplex virus) infection Condyloma HPV test positive Shingles Constipation Surgical History H/O bilateral salpingectomy Hx of dilation and curettage History of removal of retained hardware History of LAVH History of bunionectomy of both great toes Family History Other Anxiety Arthritis Breast cancer Depression Diabetes Heart disease Hyperlipemia Hypertension Social History Smoking Status: Never smoker alcohol intake: current alcohol intake frequency: a few times a week Alcohol type: wine details: social substance use type: does not use caffeine: Yes what type of physical activity do you participate in: walking seatbelt use: always do you feel safe at home: Yes additional social history: [employer]- [employer]. Patient works at [employer] HPI Chief Complaint: 6m f/u Details: RAMANDEEP SNOW, is a 43 F who presents to the office today for annual wellness checkup. She had recent wellness labs done at the hospital. Needs paperwork signed off on that. She generally speaking is been doing pretty well. She is continuing to work on diet change, and some weight loss. She is on phentermine through OB. Seemingly tolerating that. She has mild hypertension, on lisinopril???HCTZ. Well-controlled on that current regimen. Otherwise she continues to have some very mild intermittent low back pain. Usually towards the end of her work week. It is more of a stiffness and tightness in the back. She has responded to cyclobenzaprine as needed low-dose. She had previously was given 10 mg and she was only using a quarter of a tablet and that was sufficient. We will reduce it to 5 mg and she can take a half a tab of that. She uses it intermittently. Continues to follow with chiropractic, down to once a month regimen at this point. Review of systems per chart. Physical exam. Vital signs on chart. PERRLA. Sclera are clear. TMs are unremarkable with normal light reflexes. Canals are unremarkable. Posterior pharynx is unremarkable. Good dentition. No cervical or supraclavicular lymph nodes enlarged or tender. No clear thyromegaly. No thyroid nodules readily palpable. Lungs are without wheeze, rhonchi, rales. No E/A changes are heard. Heart is regular. Not tachycardic. No clear murmur, rub, or gallop is identified. The abdomen is soft. Bowel sounds are present. Nontender nondistended abdomen. No significant leg edema. Cranial nerv (more content not included)... Normal [facility] CBC, Employeeon 11-11-2023 Absolute Lymph 2.08 X10 3/uL Normal 0.83-4.51 [facility] Comment on above: Performed By: #### L 400.0100, L500.2900, L100.0200 ####[facility] [address] [place], [address] Absolute Neut 2.0 X10 3/uL Normal 2.0-7.7 [facility] Comment on above: Performed By: #### L 400.0100, L500.2900, L100.0200 ####[facility] [address] [place], [address] Basophils/100 WBC (Bld) 1.3 % High 0-1 [facility] Comment on above: Performed By: #### L 400.0100, L500.2900, L100.0200 ####[facility] [address] [place], [address] Eosinophils/100 WBC (Bld) 2.3 % Normal 0-5 [facility] Comment on above: Performed By: #### L 400.0100, L500.2900, L100.0200 ####[facility] [address] [place], [address] Erythrocyte distribution width (RBC) [Ratio] 11.7 % Normal 11.6-14.6 [facility] Comment on above: Performed By: #### L 400.0100, L500.2900, L100.0200 ####[facility] [address] [place], [address] Hematocrit (Bld) [Volume fraction] 40.8 % Normal 37-47 [facility] Comment on above: Performed By: #### L 400.0100, L500.2900, L100.0200 ####[facility] [address] [place], [address] Hemoglobin (Bld) [Mass/Vol] 13.5 g/dL Normal 12.0-15.0 [facility] Comment on above: Performed By: #### L 400.0100, L500.2900, L100.0200 ####[facility] [address] [place], [address] Lymphocytes/100 WBC (Bld) 44.3 % High 19-41 [facility] Comment on above: Performed By: #### L 400.0100, L500.2900, L100.0200 ####[facility] [address] [place], [address] MCH (RBC) [Entitic mass] 30.5 pg Normal 27.0-32.0 [facility] Comment on above: Performed By: #### L 400.0100, L500.2900, L100.0200 ####[facility] [address] [place], [address] MCHC (RBC) [Mass/Vol] 33.1 g/dL Normal 32-36 [facility] Comment on above: Performed By: #### L 400.0100, L500.2900, L100.0200 ####[facility] [address] [place], [address] MCV (RBC) [Entitic vol] 92.1 fL Normal 81-99 [facility] Comment on above: Performed By: #### L 400.0100, L500.2900, L100.0200 ####[facility] [address] [place], [address] Monocytes/100 WBC (Bld) 8.9 % Normal 0-10 [facility] Comment on above: Performed By: #### L 400.0100, L500.2900, L100.0200 ####[facility] [address] [place], [address] Neutrophils/100 WBC (Bld) 43.0 % Low 47-70 [facility] Comment on above: Performed By: #### L 400.0100, L500.2900, L100.0200 ####[facility] [address] [place], [address] NRBC # 0.00 10 3/uL Normal 0-5 [facility] Comment on above: Performed By: #### L 400.0100, L500.2900, L100.0200 ####[facility] [address] [place], [address] Nucleated RBC (Bld) [#/Vol] 0 10*3/uL Normal 0-5 [facility] Comment on above: Performed By: #### L 400.0100, L500.2900, L100.0200 ####[facility] [address] [place], [address] Platelet mean volume (Bld) [Entitic vol] 9.8 fL Normal 6.2-12.0 [facility] Comment on above: Performed By: #### L 400.0100, L500.2900, L100.0200 ####[facility] [address] [place], [address] Platelets (Bld) [#/Vol] 277 10*3/uL Normal 150-450 [facility] Comment on above: Performed By: #### L 400.0100, L500.2900, L100.0200 ####[facility] [address] [place], [address] RBC (Bld) [#/Vol] 4.43 10*6/uL Normal 4.2-5.4 [facility] Comment on above: Performed By: #### L 400.0100, L500.2900, L100.0200 ####[facility] [address] [place], [address] RDW SD 39.6 fl Normal 35.1-43.9 [facility] Comment on above: Performed By: #### L 400.0100, L500.2900, L100.0200 ####[facility] [address] [place], [address] WBC (Bld) [#/Vol] 4.7 10*3/uL Normal 4.4-11.0 [facility] Comment on above: Performed By: #### L 400.0100, L500.2900, L100.0200 ####[facility] [address] [place], [address] [employer] 4 Albumin [Mass/Vol] 3.6 g/dL Normal 3.2-5.0 [facility] Comment on above: Performed By: #### L 400.0100, L500.2900, L100.0200 ####[facility] [address] [place], [address] Albumin/Globulin [Mass ratio] 1.3 {ratio} Normal 0.9-2.4 [facility] Comment on above: Performed By: #### L 400.0100, L500.2900, L100.0200 ####[facility] [address] [place], [address] ALK P 61 U/L Normal 45-117 [facility] Comment on above: Performed By: #### L 400.0100, L500.2900, L100.0200 ####[facility] [address] [place], [address] ALT [Catalytic activity/Vol] 27 U/L Normal 13-56 [facility] Comment on above: Performed By: #### L 400.0100, L500.2900, L100.0200 ####[facility] [address] [place], [address] AST [Catalytic activity/Vol] 15 U/L Normal 15-37 [facility] Comment on above: Performed By: #### L 400.0100, L500.2900, L100.0200 ####[facility] [address] [place], [address] Bilirubin [Mass/Vol] 0.50 mg/dL Normal 0.20-1.00 [facility] Comment on above: Result Comment: For patients on eltrombopag therapy, use of Dimension [place] TBIL is not recommended. Performed By: #### L 400.0100, L500.2900, L100.0200 ####[facility] [address] [place], [address] Bilirubin.direct [Mass/Vol] 0.16 mg/dL Normal 0.00-0.30 [facility] Comment on above: Performed By: #### L 400.0100, L500.2900, L100.0200 ####[facility] [address] [place], [address] BUN/CRE 18.5 RATIO Normal 10-20 [facility] Comment on above: Performed By: #### L 400.0100, L500.2900, L100.0200 ####[facility] [address] [place], [address] CA,Total 8.6 mg/dL Normal 8.5-10.1 [facility] Comment on above: Performed By: #### L 400.0100, L500.2900, L100.0200 ####[facility] [address] [place], [address] Chloride [Moles/Vol] 104 mmol/L Normal 98-107 [facility] Comment on above: Performed By: #### L 400.0100, L500.2900, L100.0200 ####[facility] [address] [place], [address] CHOL:HDL 2.70 Normal [facility] Comment on above: Performed By: #### L 400.0100, L500.2900, L100.0200 ####[facility] [address] [place], [address] Cholesterol [Mass/Vol] 201 mg/dL High 200 [facility] Comment on above: Result Comment: <200 mg/dL Desirable 200-240 mg/dL Borderline >240 mg/dL High Risk Performed By: #### L 400.0100, L500.2900, L100.0200 ####[facility] [address] [place], [address] Cholesterol in HDL [Mass/Vol] 75 mg/dL Normal [facility] Comment on above: Result Comment: The drugs N-Acetylcysteine and Metamizole may falsely depress this assay. Reference Range HDL <40 mg/dL Low HDL Cholesterol HDL >or= 60 mg/dL High HDL Cholesterol Performed By: #### L 400.0100, L500.2900, L100.0200 ####[facility] [address] [place], [address] Cholesterol in LDL [Mass/Vol] 117 mg/dL Normal 0-130 [facility] Comment on above: Performed By: #### L 400.0100, L500.2900, L100.0200 ####[facility] [address] [place], [address] Cholesterol in VLDL [Mass/Vol] 9 mg/dL Normal 5-40 [facility] Comment on above: Performed By: #### L 400.0100, L500.2900, L100.0200 ####[facility] [address] [place], [address] CO2 [Moles/Vol] 24.0 mmol/L Normal 21.0-32.0 [facility] Comment on above: Performed By: #### L 400.0100, L500.2900, L100.0200 ####[facility] [address] [place], [address] Creatinine [Mass/Vol] 0.70 mg/dL Normal 0.55-1.02 [facility] Comment on above: Result Comment: The validity of the calculated GFR GFRAA in patients over 70 years has not been determined. Clinical correlation is essential. Performed By: #### L 400.0100, L500.2900, L100.0200 ####[facility] [address] [place], [address] EST GFR - AA 116 mL/min Normal >60 [facility] Comment on above: Result Comment: Afri can Hungarian GFR Calc Performed By: #### L 400.0100, L500.2900, L100.0200 ####[facility] [address] [place], [address] GAP 8 Normal 5-15 [facility] Comment on above: Performed By: #### L 400.0100, L500.2900, L100.0200 ####[facility] [address] [place], [address] GFR/1.73 sq M.predicted among non-blacks MDRD (S/P/Bld) [Vol rate/Area] 96 mL/min/{1.73_m2} Normal >60 [facility] Comment on above: Result Comment: Non- GFR Calc Performed By: #### L 400.0100, L500.2900, L100.0200 ####[facility] [address] [place], [address] Globulin (S) [Mass/Vol] 2.8 g/dL Normal 2.2-4.2 [facility] Comment on above: Performed By: #### L 400.0100, L500.2900, L100.0200 ####[facility] [address] [place], [address] Glucose [Mass/Vol] 95 mg/dL Normal 74-106 [facility] Comment on above: Performed By: #### L 400.0100, L500.2900, L100.0200 ####[facility] [address] [place], [address] LDH 161 U/L Normal 84-246 [facility] Comment on above: Performed By: #### L 400.0100, L500.2900, L100.0200 ####[facility] [address] [place], [address] Phosphate [Mass/Vol] 3.2 mg/dL Normal 2.5-4.9 [facility] Comment on above: Performed By: #### L 400.0100, L500.2900, L100.0200 ####[facility] [address] [place], [address] Potassium [Moles/Vol] 3.9 mmol/L Normal 3.5-5.1 [facility] Comment on above: Performed By: #### L 400.0100, L500.2900, L100.0200 ####[facility] [address] [place], [address] Sodium [Moles/Vol] 136 mmol/L Normal 136-145 [facility] Comment on above: Performed By: #### L 400.0100, L500.2900, L100.0200 ####[facility] [address] [place], [address] T PROT 6.4 g/dL Normal 6.4-8.2 [facility] Comment on above: Performed By: #### L 400.0100, L500.2900, L100.0200 ####[facility] [address] [place], [address] Triglyceride [Mass/Vol] 44 mg/dL Normal [facility] Comment on above: Result Comment: The drugs N-Acetylcysteine and Metamizole may falsely depress this assay. Serum Triglycerides Reference Interval Normal <150 mg/dL Borderline high 150 - 199 mg/dL High 200 - 499 mg/dL Very High > or = 500 mg/dL Performed By: #### L 400.0100, L500.2900, L100.0200 ####[facility] [address] [place], [address] Urea nitrogen [Mass/Vol] 13 mg/dL Normal 7-18 [facility] Comment on above: Performed By: #### L 400.0100, L500.2900, L100.0200 ####[facility] [address] [place], [address] URIC 3.0 mg/dL Normal 2.6-6.0 [facility] Comment on above: Result Comment: The drugs N-Acetylcysteine and Metamizole may falsely depress this assay. Performed By: #### L 400.0100, L500.2900, L100.0200 ####[facility] [address] [place], [address] Urinalysis, Employeeon 11-10 BILIRUBIN URINE Negative Normal Negative [facility] Comment on above: Performed By: #### L 400.0100, L500.2900, L100.0200 ####[facility] [address] [place], [address] Clarity (U) Clear Normal Clear [facility] Comment on above: Performed By: #### L 400.0100, L500.2900, L100.0200 ####[facility] [address] [place], [address] Color (U) Yellow Normal Yellow [facility] Comment on above: Performed By: #### L 400.0100, L500.2900, L100.0200 ####[facility] [address] [place], [address] GLUCOSE, UR Normal Normal Normal [facility] Comment on above: Performed By: #### L 400.0100, L500.2900, L100.0200 ####[facility] [address] [place], [address] KETONE UR Negative Normal Negative [facility] Comment on above: Performed By: #### L 400.0100, L500.2900, L100.0200 ####[facility] [address] [place], [address] LEUK ESTERASE Negative Normal Negative [facility] Comment on above: Performed By: #### L 400.0100, L500.2900, L100.0200 ####[facility] [address] [place], [address] Nitrite Ql (U) Negative Normal Negative [facility] Comment on above: Performed By: #### L 400.0100, L500.2900, L100.0200 ####[facility] [address] [place], [address] OCCULT BLOOD-UR 10 /ul Abnormal Negative [facility] Comment on above: Performed By: #### L 400.0100, L500.2900, L100.0200 ####[facility] [address] [place], [address] pH UR 6.5 Normal 5.0 - 8.0 [facility] Comment on above: Performed By: #### L 400.0100, L500.2900, L100.0200 ####[facility] [address] [place], [address] PROT DIPSTX Negative Normal Negative [facility] Comment on above: Performed By: #### L 400.0100, L500.2900, L100.0200 ####[facility] [address] [place], [address] SP.GR. DIPSTX 1.010 Normal 1.002-1.030 [facility] Comment on above: Performed By: #### L 400.0100, L500.2900, L100.0200 ####[facility] [address] [place], [address] UROBILI Normal Normal Normal [facility] Comment on above: Performed By: #### L 400.0100, L500.2900, L100.0200 ####[facility] [address] [place], [address] Absolute lymphocyte countOrd ered By: HEALTH ASSESSMENT on 03-23-2023 Lymphocytes Auto (Unsp spec) [#/Vol] 2.24 10*3/uL 0.83-4.51 [facility] Absolute reticulocyte countO rdered By: HEALTH ASSESSMENT on 03-23-2023 Reticulocytes (Bld) [#/Vol] 0.00 10*3/uL 0-5 [facility] Basophil percentageOrdered B y: HEALTH ASSESSMENT on 03-23-2023 Basophil percentage 3.1 mg/dL 2.5-4.9 [facility] Bilirubin [Mass/Vol] 0.50 mg/dL 0.20-1.00 [facility] Comment on above: For patients on eltr ombopag therapy, use of Dimension [place] TBIL is not recommended. Chloride [Moles/Vol] 105 mmol/L 98-107 [facility] Cholesterol [Mass/Vol] 191 mg/dL <200 [facility] Comment on above: <200 mg/dL Desirable 200-240 mg/dL Borderline >240 mg/dL High Risk Glucose [Mass/Vol] 98 mg/dL 74-106 [facility] LDH [Catalytic activity/Vol] 166 U/L 84-246 [facility] Neutrophils (Bld) [#/Vol] 3.5 10*3/uL 2.0-7.7 [facility] Potassium [Moles/Vol] 3.9 mmol/L 3.5-5.1 [facility] Protein [Mass/Vol] 7.2 g/dL 6.4-8.2 [facility] Sodium [Moles/Vol] 137 mmol/L 136-145 [facility] Triglyceride [Mass/Vol] 67 mg/dL <199 [facility] Comment on above: The drugs N-Acetylcy steine and Metamizole may falsely depress this assay.Serum Triglycerides Reference Interval Normal <150 mg/dL Borderline high 150 - 199 mg/dL High 200 - 499 mg/dL Very High > or = 500 mg/dL WBC (Bld) [#/Vol] 6.3 10*3/uL 4.4-11.0 [facility] Blood erythrocytes count (nu mber/volume)Ordered By: HEALTH ASSESSMENT on 03-23-2023 RBC (Bld) [#/Vol] 4.77 10*6/uL 4.2-5.4 [facility] Blood hemoglobin measurement (mass/volume)Ordered By: HEALTH ASSESSMENT on 03-23-2023 Hemoglobin (Bld) [Mass/Vol] 14.6 g/dL 12.0-15.0 [facility] Blood platelet mean volumeOr dered By: HEALTH ASSESSMENT on 03-23-2023 Platelet mean volume (Bld) [Entitic vol] 9.8 fL 6.2-12.0 [facility] Determination of erythrocyte mean corpuscular volume (MCV)Ordered By: HEALTH ASSESSMENT on 03-23-2023 MCV (RBC) [Entitic vol] 91.2 fL 81-99 [facility] Direct bilirubinOrdered By: HEALTH ASSESSMENT on 03-23-2023 Bilirubin.direct [Mass/Vol] 0.13 mg/dL 0.00-0.30 [facility] Hematocrit Auto (Bld) [Volum e fraction]Ordered By: HEALTH ASSESSMENT on 03-23-2023 Hematocrit (Bld) [Volume fraction] 43.5 % 37-47 [facility] Laboratory - Chemistry and C hemistry - challengeOrdered By: HEALTH ASSESSMENT on 03-23-2023 ALP [Catalytic activity/Vol] 76 U/L 45-117 [facility] ALT [Catalytic activity/Vol] 30 U/L 13-56 [facility] Cholesterol.total/Justine sterol in HDL [Mass ratio] 2.50 {ratio} [facility] CO2 [Moles/Vol] 28.0 mmol/L 21.0-32.0 [facility] Globulin (S) [Mass/Vol] 3.6 g/dL 2.2-4.2 [facility] Urea nitrogen/Creatinine [Mass ratio] 19.3 mg/mg 10-20 [facility] Laboratory - Hematology and Cell countsOrdered By: HEALTH ASSESSMENT on 03-23-2023 Erythrocyte distribution width (RBC) [Entitic vol] 40.5 fL 35.1-43.9 [facility] Erythrocyte distribution width (RBC) [Ratio] 12.2 % 11.6-14.6 [facility] MCH (RBC) [Entitic mass] 30.6 pg 27.0-32.0 [facility] Nucleated RBC/100 WBC (Bld) [Ratio] 0 % 0-5 [facility] MCHC Auto (RBC) [Mass/Vol]Or dered By: HEALTH ASSESSMENT on 03-23-2023 MCHC (RBC) [Mass/Vol] 33.6 g/dL 32-36 [facility] No Panel InformationOrdered By: HEALTH ASSESSMENT on 03-23-2023 Estimated GFR (MDRD) Amer 112 mL/min >60 [facility] Comment on above: GFR Calc Estimated GFR (MDRD) Non-Af Amer 92 mL/min >60 [facility] Comment on above: Non- GFR Calc No Panel InformationOrdered By: Winifred Pedro on 03-23-2023 Insulin Level 9.2 mU/L 2.6-37.6 [facility] Platelets bldOrdered By: HEHanna LTH ASSESSMENT on 03-23-2023 Platelets (Bld) [#/Vol] 316 10*3/uL 150-450 [facility] Segmented neutrophils/100 WB C Auto (Bld)Ordered By: HEALTH ASSESSMENT on 03-23-2023 Segmented neutrophils/100 WBC (Bld) 54.6 % 47-70 [facility] Serum or plasma albumin jessee urement (mass/volume)Ordered By: HEALTH ASSESSMENT on 03-23-2023 Albumin [Mass/Vol] 3.6 g/dL 3.2-5.0 [facility] Serum or plasma albumin/glob ulin mass ratioOrdered By: HEALTH ASSESSMENT on 03-23-2023 Albumin/Globulin [Mass ratio] 1.0 {ratio} 0.9-2.4 [facility] Serum or plasma calcium jessee urement (mass/volume)Ordered By: HEALTH ASSESSMENT on 03-23-2023 Calcium [Mass/Vol] 9.1 mg/dL 8.5-10.1 [facility] Serum or plasma cholesterol in HDL measurement (mass/volume)Ordered By: HEALTH ASSESSMENT on 03-23-2023 Cholesterol in HDL [Mass/Vol] 76 mg/dL >40 [facility] Comment on above: The drugs N-Acetylcy steine and Metamizole may falsely depress this assay. Reference Range HDL <40 mg/dL Low HDL Cholesterol HDL >or= 60 mg/dL High HDL Cholesterol Serum or plasma cholesterol in VLDL measurement (mass/volume)Ordered By: HEALTH ASSESSMENT on 03-23-2023 Cholesterol in VLDL [Mass/Vol] 13 mg/dL 5-40 [facility] Serum or plasma creatinine m easurement (mass/volume)Ordered By: HEALTH ASSESSMENT on 03-23-2023 Creatinine [Mass/Vol] 0.73 mg/dL 0.55-1.02 [facility] Comment on above: The validity of the calculated GFR & GFRAA in patients over 70 years has not been determined. Clinical correlation is essential. Serum or plasma low density lipoprotein (LDL) cholesterol measurement (mass/volume)Ordered By: HEALTH ASSESSMENT on 03-23-2023 Cholesterol in LDL [Mass/Vol] 102 mg/dL 0-130 [facility] Serum or plasma urea nitroge n measurement (mass/volume)Ordered By: HEALTH ASSESSMENT on 03-23-2023 Urea nitrogen [Mass/Vol] 14 mg/dL 7-18 [facility] Serum or plasma uric acid me asurement (mass/volume)Ordered By: HEALTH ASSESSMENT on 03-23-2023 Urate [Mass/Vol] 3.5 mg/dL 2.6-6.0 [facility] Comment on above: The drugs N-Acetylcy steine and Metamizole may falsely depress this assay. Thin prep Papanicolaou smear with manual screeningOrdered By: HEALTH ASSESSMENT on 03-23-2023 Thin prep Papanicolaou smear with manual screening 14 U/L 15-37 [facility] Thin prep Papanicolaou smear with manual screening 4 5-15 [facility] Basophil percentageOrdered B y: Dr. Gallego on 10-19-2022 Cholesterol [Mass/Vol] 215 mg/dL <200 [facility] Comment on above: <200 mg/dL Desirable 200-240 mg/dL Borderline >240 mg/dL High Risk Triglyceride [Mass/Vol] 99 mg/dL <199 [facility] Comment on above: The drugs N-Acetylcy steine and Metamizole may falsely depress this assay.Serum Triglycerides Reference Interval Normal <150 mg/dL Borderline high 150 - 199 mg/dL High 200 - 499 mg/dL Very High > or = 500 mg/dL Serum or plasma cholesterol in HDL measurement (mass/volume)Ordered By: Dr. Gallego on 10-19-2022 Cholesterol in HDL [Mass/Vol] 76 mg/dL >40 [facility] Comment on above: The drugs N-Acetylcy steine and Metamizole may falsely depress this assay. Reference Range HDL <40 mg/dL Low HDL Cholesterol HDL >or= 60 mg/dL High HDL Cholesterol Serum or plasma cholesterol in VLDL measurement (mass/volume)Ordered By: Dr. Gallego on 10-19-2022 Cholesterol in VLDL [Mass/Vol] 20 mg/dL 5-40 [facility] Serum or plasma low density lipoprotein (LDL) cholesterol measurement (mass/volume)Ordered By: Dr. Gallego on 10-19-2022 Cholesterol in LDL [Mass/Vol] 119 mg/dL 0-130 [facility] Laboratory - Chemistry and C hemistry - challengeOrdered By: Lizzy Riley on 08-09-2022 Free T4 [Mass/Vol] 0.89 ng/dL 0.76-1.46 [facility] No Panel InformationOrdered By: Lizzy Riley on 08-09-2022 Follicle Stimulating Hormone 7.7 mIU/mL [facility] Comment on above: NORMAL REFERENCE RAN GES FEMALE FOLLICULAR 2.3 - 12.6 mIU/mL MID-CYCLE PEAK 5.2 - 17.5 mIU/mL LUTEAL 1.7 - 12.9 mIU/mL POST-MENOPAUSAL ON MHT 5.9 - 72.8 mIU/mL NOT ON MHT 12.7 - 132.2 mlU/mL MALE 0.7 - 10.8 mIU/mL Thyroid Stimulating Hormone (TSH) 1.94 uIU/mL 0.358-3.74 [facility] Serum or plasma 17-hydroxypr ogesterone measurement (mass/volume)Ordered By: Lizzy Riley on 08-09-2022 17-Hydroxyprogesterone [Mass/Vol] 20 ng/dL . [facility] Comment on above: Adult Female Follicu lar 15 - 70 Luteal 35 - 290Performed at: - [facility] [address] [id number] Director: Nino Otero MD, Phone: [phone] Serum or plasma cortisol jim surement (mass/volume)Ordered By: Lizzy Riley on 08-09-2022 Cortisol [Mass/Vol] 8.80 ug/dL 3.44-22.45 [facility] Comment on above: Adult (AM) 5.27 - 22 .45 ug/dL Adult (PM) 3.44 - 16.76 ug/dLPlease note revised CORTISOL reference range effective 2019. Serum or plasma estradiol (E 2) measurement (mass/volume)Ordered By: Lizzy Riley on 08-09-2022 E2 [Mass/Vol] 67.5 pg/mL [facility] Comment on above: NORMAL REFERENCE RAN GES FEMALE FOLLICULAR 21.4 - 164.8 pg/mL MID-CYCLE PEAK 49.9 - 367.2 pg/mL LUTEAL 40.2 - 259.0 pg/mL POST-MENOPAUSAL ON MHT <11.0 - 462.1 pg/mL NOT ON MHT <11.0 - 58.3 pg/mL MALE <11.0 - 52.5 pg/mL NOTE:[employer] HAS CONFIRMED THE DRUG FULVETRANT (FASLODEX) MAY CAUSE FALSELY ELEVATED ESTRADIOL RESULTS WHEN USING THIS TEST METHOD. IF PATIENT IS TAKING FULVESTRANT AN ALTERNATIVE METHOD SHOULD BE USED TO DETERMINE ESTRADIOL CONCENTRATION. Serum or plasma testosterone free measurement (mass/volume)Ordered By: Lizzy Riley on 08-09-2022 Testosterone Free [Mass/Vol] 4.4 pg/mL 0.0-4.2 [facility] Comment on above: Performed at: [facility] [employer] [id number] Director: Nino Otero MD, Phone: [phone] Whole blood hemoglobin A1c/t otal hemoglobin ratio (mass fraction)Ordered By: Lizzy Riley on 08-09-2022 HbA1c (Bld) [Mass fraction] 5.0 % 3.8-5.6 [facility] Comment on above: Normal < 5.7 % Predi abetic 5.7 - 6.4 % Diabetic >or= 6.5 % Please note range changes. Basophil percentageOrdered B y: Dr. Frederick on 06-10-2022 Bilirubin [Mass/Vol] 0.40 mg/dL 0.20-1.00 [facility] Comment on above: For patients on eltr ombopag therapy, use of Dimension [place] TBIL is not recommended. Chloride [Moles/Vol] 101 mmol/L 98-107 [facility] Glucose [Mass/Vol] 91 mg/dL 74-106 [facility] Potassium [Moles/Vol] 3.5 mmol/L 3.5-5.1 [facility] Protein [Mass/Vol] 7.4 g/dL 6.4-8.2 [facility] Sodium [Moles/Vol] 136 mmol/L 136-145 [facility] WBC (Bld) [#/Vol] 7.4 10*3/uL 4.4-11.0 [facility] Blood erythrocytes count (nu mber/volume)Ordered By: Dr. Frederick on 06-10-2022 RBC (Bld) [#/Vol] 4.81 10*6/uL 4.2-5.4 [facility] Blood hemoglobin measurement (mass/volume)Ordered By: Dr. Frederick on 06-10-2022 Hemoglobin (Bld) [Mass/Vol] 14.9 g/dL 12.0-15.0 [facility] Blood platelet mean volumeOr dered By: Dr. Frederick on 06-10-2022 Platelet mean volume (Bld) [Entitic vol] 9.9 fL 6.2-12.0 [facility] Determination of erythrocyte mean corpuscular volume (MCV)Ordered By: Dr. Frederick on 06-10-2022 MCV (RBC) [Entitic vol] 90.4 fL 81-99 [facility] Hematocrit Auto (Bld) [Volum e fraction]Ordered By: Dr. Frederick on 06-10-2022 Hematocrit (Bld) [Volume fraction] 43.5 % 37-47 [facility] Laboratory - Chemistry and C hemistry - challengeOrdered By: Dr. Frederick on 06-10-2022 ALP [Catalytic activity/Vol] 70 U/L 45-117 [facility] ALT [Catalytic activity/Vol] 36 U/L 13-56 [facility] CO2 [Moles/Vol] 28.0 mmol/L 21.0-32.0 [facility] Globulin (S) [Mass/Vol] 3.6 g/dL 2.2-4.2 [facility] Magnesium [Mass/Vol] 2.2 mg/dL 1.6-2.6 [facility] Urea nitrogen/Creatinine [Mass ratio] 34.4 mg/mg 10-20 [facility] - Hematology and Cell countsOrdered By: Dr. Frederick on 06-10-2022 Erythrocyte distribution width (RBC) [Entitic vol] 41.9 fL 35.1-43.9 [facility] Erythrocyte distribution width (RBC) [Ratio] 12.5 % 11.6-14.6 [facility] MCH (RBC) [Entitic mass] 31.0 pg 27.0-32.0 [facility] MCHC Auto (RBC) [Mass/Vol]Or dered By: Dr. Frederick on 06-10-2022 MCHC (RBC) [Mass/Vol] 34.3 g/dL 32-36 [facility] No Panel InformationOrdered By: Dr. Frederick on 06-10-2022 Estimated GFR (MDRD) Amer 107 mL/min >60 [facility] Comment on above: GFR Calc Estimated GFR (MDRD) Non-Af Amer 89 mL/min >60 [facility] Comment on above: Non- GFR Calc Vitamin D 25-Hydroxy 64.8 ng/mL [facility] Comment on above: Vitamin D 25(OH) Sta tus Range Deficiency <20 ng/mL (50nmol/L) Insufficiency 20 - 30 ng/mL (50 - 75 nmol/L) Sufficiency 30 - 100 ng/mL (75 - 250 nmol/L) Toxicity >100 ng/mL (>250 nmol/L) Platelets bldOrdered By: Dr. Frederick on 06-10-2022 Platelets (Bld) [#/Vol] 331 10*3/uL 150-450 [facility] Serum or plasma albumin jessee urement (mass/volume)Ordered By: Dr. Frederick on 06-10-2022 Albumin [Mass/Vol] 3.8 g/dL 3.2-5.0 [facility] Serum or plasma albumin/glob ulin mass ratioOrdered By: Dr. Frederick on 06-10-2022 Albumin/Globulin [Mass ratio] 1.1 {ratio} 0.9-2.4 [facility] Serum or plasma calcium jessee urement (mass/volume)Ordered By: Dr. Frederick on 06-10-2022 Calcium [Mass/Vol] 8.9 mg/dL 8.5-10.1 [facility] Serum or plasma creatinine m easurement (mass/volume)Ordered By: Dr. Frederick on 06-10-2022 Creatinine [Mass/Vol] 0.76 mg/dL 0.55-1.02 [facility] Comment on above: The validity of the calculated GFR & GFRAA in patients over 70 years has not been determined. Clinical correlation is essential. Serum or plasma urea nitroge n measurement (mass/volume)Ordered By: Dr. Frederick on 06-10-2022 Urea nitrogen [Mass/Vol] 26 mg/dL 7-18 [facility] Thin prep Papanicolaou smear with manual screeningOrdered By: Dr. Frederick on 06-10-2022 Thin prep Papanicolaou smear with manual screening 17 U/L 15-37 [facility] Thin prep Papanicolaou smear with manual screening 7 5-15 [facility] Laboratory - Microbiology an d Antimicrobial susceptibilityon 02-27-2022 SARS-CoV-2 (COVID-19) RNA RANJIT+probe Ql (Unsp spec) Detected [facility] Basophil percentageon 2021 Bilirubin [Mass/Vol] 0.30 mg/dL 0.20-1.00 [facility] Work Phone: Comment on above: For patients on eltr ombopag therapy, use of Dimension [place] TBIL is not recommended. Chloride [Moles/Vol] 105 mmol/L 98-107 [facility] Work Phone: Glucose [Mass/Vol] 92 mg/dL 74-106 [facility] Work Phone: [phone] Potassium [Moles/Vol] 4.1 mmol/L 3.5-5.1 [facility] Work Phone: [phone] Protein [Mass/Vol] 7.0 g/dL 6.4-8.2 [facility] Work Phone: [phone] Sodium [Moles/Vol] 138 mmol/L 136-145 [facility] Work Phone: [phone] WBC (Bld) [#/Vol] 5.1 10*3/uL 4.4-11.0 [facility] Work Phone: [phone] Blood erythrocytes count (nu mber/volume)on 02-11-2022 RBC (Bld) [#/Vol] 4.48 10*6/uL 4.2-5.4 [facility] Work Phone: Blood hemoglobin measurement (mass/volume)on 02-11-2022 Hemoglobin (Bld) [Mass/Vol] 14.1 g/dL 12.0-15.0 [facility] Work Phone: Blood platelet mean volumeon 02-11-2022 Platelet mean volume (Bld) [Entitic vol] 10.4 fL 6.2-12.0 [facility] Work Phone: Determination of erythrocyte mean corpuscular volume (MCV)on 02-11-2022 MCV (RBC) [Entitic vol] 93.8 fL 81-99 [facility] Work Phone: Hematocrit Auto (Bld) [Volum e fraction]on 02-11-2022 Hematocrit (Bld) [Volume fraction] 42.0 % 37-47 [facility] Work Phone: Laboratory - Chemistry and C hemistry - challengeon 02-11-2022 ALP [Catalytic activity/Vol] 59 U/L 45-117 [facility] Work Phone: ALT [Catalytic activity/Vol] 33 U/L 13-56 [facility] Work Phone: CO2 [Moles/Vol] 25.0 mmol/L 21.0-32.0 [facility] Work Phone: Globulin (S) [Mass/Vol] 3.4 g/dL 2.2-4.2 [facility] Work Phone: Urea nitrogen/Creatinine [Mass ratio] 37.0 mg/mg 10-20 [facility] Work Phone: Laboratory - Hematology and Cell countson 02-11-2022 Erythrocyte distribution width (RBC) [Entitic vol] 42.4 fL 35.1-43.9 [facility] Work Phone: Erythrocyte distribution width (RBC) [Ratio] 12.2 % 11.6-14.6 [facility] Work Phone: MCH (RBC) [Entitic mass] 31.5 pg 27.0-32.0 [facility] Work Phone: MCHC Auto (RBC) [Mass/Vol]on 02-11-2022 MCHC (RBC) [Mass/Vol] 33.6 g/dL 32-36 [facility] Work Phone: No Panel Informationon 02-11 Estimated GFR (MDRD) Amer 112 mL/min >60 [facility] Work Phone: Comment on above: GFR Calc Estimated GFR (MDRD) Non-Af Amer 92 mL/min >60 [facility] Work Phone: Comment on above: Non- GFR Calc Vitamin D 25-Hydroxy 28.3 ng/mL [facility] Work Phone: Comment on above: Vitamin D 25(OH) Sta tus Range Deficiency <20 ng/mL (50nmol/L) Insufficiency 20 - 30 ng/mL (50 - 75 nmol/L) Sufficiency 30 - 100 ng/mL (75 - 250 nmol/L) Toxicity >100 ng/mL (>250 nmol/L) Platelets bldon 02-11-2022 Platelets (Bld) [#/Vol] 298 10*3/uL 150-450 [facility] Work Phone: Serum or plasma albumin jessee urement (mass/volume)on 02-11-2022 Albumin [Mass/Vol] 3.6 g/dL 3.2-5.0 [facility] Work Phone: Serum or plasma albumin/glob ulin mass ratioon 02-11-2022 Albumin/Globulin [Mass ratio] 1.1 {ratio} 0.9-2.4 [facility] Work Phone: Serum or plasma calcium jessee urement (mass/volume)on 02-11-2022 Calcium [Mass/Vol] 8.8 mg/dL 8.5-10.1 [facility] Work Phone: Serum or plasma creatinine m easurement (mass/volume)on 02-11-2022 Creatinine [Mass/Vol] 0.73 mg/dL 0.55-1.02 [facility] [place] Work Phone: Comment on above: The validity of the calculated GFR & GFRAA in patients over 70 years has not been determined. Clinical correlation is essential. Serum or plasma ferritin jim surement (mass/volume)on 02-11-2022 Ferritin [Mass/Vol] 66 ng/mL 8-252 [facility] Work Phone: Serum or plasma urea nitroge n measurement (mass/volume)on 02-11-2022 Urea nitrogen [Mass/Vol] 27 mg/dL 7-18 [facility] Work Phone: Thin prep Papanicolaou smear with manual screeningon 02-11-2022 Thin prep Papanicolaou smear with manual screening 18 U/L 15-37 [facility] Work Phone: Thin prep Papanicolaou smear with manual screening 8 5-15 [facility] Work Phone: Absolute lymphocyte counton 10-01-2021 Lymphocytes Auto (Unsp spec) [#/Vol] 2.36 10*3/uL 0.83-4.51 [facility] Work Phone: Absolute reticulocyte counto 10-01-2021 Reticulocytes (Bld) [#/Vol] 0.00 10*3/uL 0-5 [facility] Work Phone: Basophil percentageon 2021 Basophil percentage 3.4 mg/dL 2.5-4.9 [facility] Work Phone: Bilirubin [Mass/Vol] 0.60 mg/dL 0.20-1.00 [facility] Work Phone: Comment on above: For patients on eltr ombopag therapy, use of Dimension [place] TBIL is not recommended. Chloride [Moles/Vol] 104 mmol/L 98-107 [facility] Work Phone: Cholesterol [Mass/Vol] 179 mg/dL <200 [facility] Work Phone: Comment on above: <200 mg/dL Desirable 200-240 mg/dL Borderline >240 mg/dL High Risk Glucose [Mass/Vol] 91 mg/dL 74-106 [facility] Work Phone: Neutrophils (Bld) [#/Vol] 2.8 10*3/uL 2.0-7.7 [facility] Work Phone: Potassium [Moles/Vol] 3.5 mmol/L 3.5-5.1 [facility] Work Phone: Protein [Mass/Vol] 7.1 g/dL 6.4-8.2 [facility] Work Phone: Sodium [Moles/Vol] 137 mmol/L 136-145 [facility] Work Phone: Triglyceride [Mass/Vol] 102 mg/dL <199 [facility] Work Phone: Comment on above: The drugs N-Acetylcy steine and Metamizole may falsely depress this assay.Serum Triglycerides Reference Interval Normal <150 mg/dL Borderline high 150 - 199 mg/dL High 200 - 499 mg/dL Very High > or = 500 mg/dL WBC (Bld) [#/Vol] 5.8 10*3/uL 4.4-11.0 [facility] Work Phone: Blood erythrocytes count (nu mber/volume)on 10-01-2021 RBC (Bld) [#/Vol] 4.68 10*6/uL 4.2-5.4 [facility] Work Phone: Blood hemoglobin measurement (mass/volume)on 10-01-2021 Hemoglobin (Bld) [Mass/Vol] 14.5 g/dL 12.0-15.0 [facility] Work Phone: Blood platelet mean volumeon 10-01-2021 Platelet mean volume (Bld) [Entitic vol] 10.5 fL 6.2-12.0 [facility] Work Phone: Determination of erythrocyte mean corpuscular volume (MCV)on 10-01-2021 MCV (RBC) [Entitic vol] 92.3 fL 81-99 [facility] Work Phone: Direct bilirubinon 2 Bilirubin.direct [Mass/Vol] 0.16 mg/dL 0.00-0.30 [facility] Work Phone: Hematocrit Auto (Bld) [Volum e fraction]on 10-01-2021 Hematocrit (Bld) [Volume fraction] 43.2 % 37-47 [facility] Work Phone: Laboratory - Chemistry and C hemistry - challengeon 10-01-2021 ALP [Catalytic activity/Vol] 56 U/L 45-117 [facility] Work Phone: ALT [Catalytic activity/Vol] 21 U/L 13-56 [facility] Work Phone: Cholesterol.total/Justine sterol in HDL [Mass ratio] 2.10 {ratio} [facility] Work Phone: CO2 [Moles/Vol] 28.0 mmol/L 21.0-32.0 [facility] Work Phone: Globulin (S) [Mass/Vol] 3.3 g/dL 2.2-4.2 [facility] Work Phone: Urea nitrogen/Creatinine [Mass ratio] 15.4 mg/mg 10-20 [facility] Work Phone: [phone] Laboratory - Hematology and Cell countson 10-01-2021 Erythrocyte distribution width (RBC) [Entitic vol] 41.5 fL 35.1-43.9 [facility] Work Phone: Erythrocyte distribution width (RBC) [Ratio] 12.3 % 11.6-14.6 [facility] Work Phone: [phone] MCH (RBC) [Entitic mass] 31.0 pg 27.0-32.0 [facility] Work Phone: [phone] Nucleated RBC/100 WBC (Bld) [Ratio] 0 % 0-5 [facility] Work Phone: MCHC Auto (RBC) [Mass/Vol]on 10-01-2021 MCHC (RBC) [Mass/Vol] 33.6 g/dL 32-36 [facility] Work Phone: No Panel Informationon 10-01 Estimated GFR (MDRD) Amer 104 mL/min >60 [facility] Work Phone: Comment on above: GFR Calc Estimated GFR (MDRD) Non-Af Amer 86 mL/min >60 [facility] Work Phone: Comment on above: Non- GFR Calc Platelets bldon 10-01-2021 Platelets (Bld) [#/Vol] 261 10*3/uL 150-450 [facility] Work Phone: Segmented neutrophils/100 WB C Auto (Bld)on 10-01-2021 Segmented neutrophils/100 WBC (Bld) 48.7 % 47-70 [facility] Work Phone: Serum or plasma albumin jessee urement (mass/volume)on 10-01-2021 Albumin [Mass/Vol] 3.8 g/dL 3.2-5.0 [facility] Work Phone: Serum or plasma albumin/glob ulin mass ratioon 10-01-2021 Albumin/Globulin [Mass ratio] 1.2 {ratio} 0.9-2.4 [facility] Work Phone: Serum or plasma calcium jessee urement (mass/volume)on 10-01-2021 Calcium [Mass/Vol] 8.7 mg/dL 8.5-10.1 [facility] Work Phone: Serum or plasma cholesterol in HDL measurement (mass/volume)on 10-01-2021 Cholesterol in HDL [Mass/Vol] 85 mg/dL >40 [facility] Work Phone: Comment on above: The drugs N-Acetylcy steine and Metamizole may falsely depress this assay. Reference Range HDL <40 mg/dL Low HDL Cholesterol HDL >or= 60 mg/dL High HDL Cholesterol Serum or plasma cholesterol in VLDL measurement (mass/volume)on 10-01-2021 Cholesterol in VLDL [Mass/Vol] 20 mg/dL 5-40 [facility] Work Phone: Serum or plasma creatinine m easurement (mass/volume)on 10-01-2021 Creatinine [Mass/Vol] 0.78 mg/dL 0.55-1.02 [facility] Work Phone: Comment on above: The validity of the calculated GFR & GFRAA in patients over 70 years has not been determined. Clinical correlation is essential. Serum or plasma low density lipoprotein (LDL) cholesterol measurement (mass/volume)on 10-01-2021 Cholesterol in LDL [Mass/Vol] 74 mg/dL 0-130 [facility] Work Phone: Serum or plasma urea nitroge n measurement (mass/volume)on 10-01-2021 Urea nitrogen [Mass/Vol] 12 mg/dL 7-18 [facility] Work Phone: Serum or plasma uric acid me asurement (mass/volume)on 10-01-2021 Urate [Mass/Vol] 3.5 mg/dL 2.6-6.0 [facility] Work Phone: Comment on above: The drugs N-Acetylcy steine and Metamizole may falsely depress this assay. Thin prep Papanicolaou smear with manual screeningon 10-01-2021 Thin prep Papanicolaou smear with manual screening 14 U/L 15-37 [facility] Work Phone: Thin prep Papanicolaou smear with manual screening 5 5-15 [facility] Work Phone: Thin prep Papanicolaou smear with manual screening 162 U/L 84-246 [facility] Work Phone: Absolute lymphocyte counton 08-10-2021 Lymphocytes Auto (Unsp spec) [#/Vol] 2.80 10*3/uL 0.83-4.51 [facility] Work Phone: Basophil percentageon 2021 Basophil percentage Not Reportable [facility] Work Phone: Basophils/100 WBC (Bld) 0.9 % 0-1 [facility] Work Phone: [phone] Bilirubin [Mass/Vol] 0.50 mg/dL 0.20-1.00 [facility] Work Phone: Comment on above: For patients on eltr ombopag therapy, use of Dimension [place] TBIL is not recommended. Chloride [Moles/Vol] 103 mmol/L 98-107 [facility] Work Phone: [phone] Eosinophils/100 WBC (Bld) 1.1 % 0-5 [facility] Work Phone: [phone] Glucose [Mass/Vol] 93 mg/dL 74-106 [facility] Work Phone: [phone] Neutrophils (Bld) [#/Vol] 3.9 10*3/uL 2.0-7.7 [facility] Work Phone: Neutrophils/100 WBC (Bld) 53.0 % 47-70 [facility] Work Phone: [phone] Potassium [Moles/Vol] 4.1 mmol/L 3.5-5.1 [facility] Work Phone: [phone] Protein [Mass/Vol] 7.7 g/dL 6.4-8.2 [facility] Work Phone: [phone] Sodium [Moles/Vol] 136 mmol/L 136-145 [facility] Work Phone: [phone] WBC (Bld) [#/Vol] 7.4 10*3/uL 4.4-11.0 [facility] Work Phone: [phone] Blood erythrocytes count (nu mber/volume)on 08-10-2021 RBC (Bld) [#/Vol] 4.91 10*6/uL 4.2-5.4 [facility] Work Phone: Blood hemoglobin measurement (mass/volume)on 08-10-2021 Hemoglobin (Bld) [Mass/Vol] 15.6 g/dL 12.0-15.0 [facility] Work Phone: Blood lymphocytes/100 leukoc yteson 08-10-2021 Lymphocytes/100 WBC (Bld) 37.6 % 19-41 [facility] Work Phone: Blood monocytes/100 leukocyt eson 08-10-2021 Monocytes/100 WBC (Bld) 7.1 % 0-10 [facility] Work Phone: Blood platelet mean volumeon 08-10-2021 Platelet mean volume (Bld) [Entitic vol] 10.0 fL 6.2-12.0 [facility] Work Phone: Determination of erythrocyte mean corpuscular volume (MCV)on 08-10-2021 MCV (RBC) [Entitic vol] 91.2 fL 81-99 [facility] Work Phone: Hematocrit Auto (Bld) [Volum e fraction]on 08-10-2021 Hematocrit (Bld) [Volume fraction] 44.8 % 37-47 [facility] Work Phone: Laboratory - Chemistry and C hemistry - challengeon 08-10-2021 ALP [Catalytic activity/Vol] 66 U/L 45-117 [facility] Work Phone: ALT [Catalytic activity/Vol] 34 U/L 13-56 [facility] Work Phone: CO2 [Moles/Vol] 28.0 mmol/L 21.0-32.0 [facility] Work Phone: Globulin (S) [Mass/Vol] 3.5 g/dL 2.2-4.2 [facility] Work Phone: Urea nitrogen/Creatinine [Mass ratio] 22.3 mg/mg 10-20 [facility] Work Phone: Laboratory - Hematology and Cell countson 08-10-2021 Erythrocyte distribution width (RBC) [Entitic vol] 39.8 fL 35.1-43.9 [facility] Work Phone: Erythrocyte distribution width (RBC) [Ratio] 11.9 % 11.6-14.6 [facility] Work Phone: Immature granulocytes/100 WBC (Bld) 0.300 % 0.0-0.9 [facility] Work Phone: Comment on above: IG% - Immature Granu locytes (promyelocytes, myelocytes and metamyelocytes) > 1% indicates that a LEFT SHIFT is Present. MCH (RBC) [Entitic mass] 31.8 pg 27.0-32.0 [facility] Work Phone: Nucleated RBC/100 WBC (Bld) [Ratio] 0 % 0-5 [facility] Work Phone: MCHC Auto (RBC) [Mass/Vol]on 08-10-2021 MCHC (RBC) [Mass/Vol] 34.8 g/dL 32-36 [facility] Work Phone: No Panel Informationon 08-10 Anti-Nuclear Antibody Screen Negative Negative [facility] Work Phone: Comment on above: Performed at: [place] [id number] Director: Elan Kirkland PhD, Phone: [phone] [employer] [facility] Antibody Not Reportable [facility] Work Phone: Estimated GFR (MDRD) Amer 107 mL/min >60 [facility] Work Phone: Comment on above: GFR Calc Estimated GFR (MDRD) Non-Af Amer 88 mL/min >60 [facility] Work Phone: Comment on above: Non- GFR Calc BREAD STACKER Antibody Not Reportable [facility] Work Phone: Thyroid Stimulating Hormone (TSH) 2.53 uIU/mL 0.358-3.74 [facility] Work Phone: Platelets bldon 08-10-2021 Platelets (Bld) [#/Vol] 320 10*3/uL 150-450 [facility] Work Phone: Serum DNA double strand anti body assay (units/volume)on 08-10-2021 DNA double strand Ab Qn (S) Not Reportable [facility] Work Phone: Serum Miranda-1 antibody assay (u nits/volume)on 08-10-2021 Miranda-1 extractable nuclear Ab Qn (S) Not Reportable [facility] Work Phone: Serum Scl-70 extractable nuc lear antibody assay (units/volume)on 08-10-2021 SCL-70 extractable nuclear Ab Qn (S) Not Reportable [facility] Work Phone: Serum Bergman extractable nucl ear antibody detectionon 08-10-2021 Ebrgman extractable nuclear Ab Ql (S) Not Reportable [facility] Work Phone: Serum or plasma albumin jessee urement (mass/volume)on 08-10-2021 Albumin [Mass/Vol] 4.2 g/dL 3.2-5.0 [facility] Work Phone: Serum or plasma albumin/glob ulin mass ratioon 08-10-2021 Albumin/Globulin [Mass ratio] 1.2 {ratio} 0.9-2.4 [facility] Work Phone: Serum or plasma calcium jessee urement (mass/volume)on 08-10-2021 Calcium [Mass/Vol] 8.9 mg/dL 8.5-10.1 [facility] Work Phone: Serum or plasma creatinine m easurement (mass/volume)on 08-10-2021 Creatinine [Mass/Vol] 0.76 mg/dL 0.55-1.02 [facility] Work Phone: Comment on above: The validity of the calculated GFR & GFRAA in patients over 70 years has not been determined. Clinical correlation is essential. Serum or plasma urea nitroge n measurement (mass/volume)on 08-10-2021 Urea nitrogen [Mass/Vol] 17 mg/dL 7-18 [facility] Work Phone: Serum rheumatoid factor dete ctionon 08-10-2021 Rheumatoid factor Ql (S) < 10.0 IU/mL <15 [facility] Work Phone: Thin prep Papanicolaou smear with manual screeningon 08-10-2021 Thin prep Papanicolaou smear with manual screening 17 U/L 15-37 [facility] Work Phone: Thin prep Papanicolaou smear with manual screening 5 5-15 [facility] Work Phone: Vital Signs Date Time Vital Sign Value Performing Clinician Facility 09-14-2024 14:45-0400 Body temperature 97.5 [degF] Dr. Winifred Pedro MD Work Phone: [facility] 09-14-2024 14:45-0400 Diastolic blood pressure 91 mm[Hg] Dr. Winifred Pedro MD Work Phone: [facility] 09-14-2024 14:45-0400 Heart rate 67 /min Dr. Winifred Pedro MD Work Phone: [facility] 09-14-2024 14:45-0400 Respiratory rate 18 /min Dr. Winifred Pedro MD Work Phone: [facility] 09-14-2024 14:45-0400 SaO2% (BldA) [Mass fraction] 96 % Dr. Winifred Pedro MD Work Phone: [facility] 09-14-2024 14:45-0400 Systolic blood pressure 129 mm[Hg] Dr. Winifred Pedro MD Work Phone: [facility] 09-14-2024 13:28-0400 Body height 154.[address] Winifred Pedro MD Work Phone: [facility] 09-14-2024 13:28-0400 Body mass index (BMI) [Ratio] 28.7 kg/m2 Dr. Winifred Pedro MD Work Phone: [facility] 09-14-2024 13:28-0400 Body weight 68.[address] Winifred Pedro MD Work Phone: [facility] 06-11-2024 08:07-0500 Body mass index (BMI) [Ratio] 27.6 kg/m2 Dr. Winifred Pedro MD Work Phone: [facility] 06-11-2024 08:07-0500 Body temperature 98.4 [degF] Dr. Winifred Pedro MD Work Phone: [facility] 06-11-2024 08:07-0500 Body weight 68.[address] Winifred Pedro MD Work Phone: [facility] 06-11-2024 08:07-0500 Diastolic blood pressure 84 mm[Hg] Dr. Winifred Pedro MD Work Phone: [facility] 06-11-2024 08:07-0500 Heart rate 68 /min Dr. Winifred Pedro MD Work Phone: [facility] 06-11-2024 08:07-0500 Respiratory rate 16 /min Dr. Winifred Pedro MD Work Phone: [facility] 06-11-2024 08:07-0500 SaO2% (BldA) [Mass fraction] 96 % Dr. Winifred Pedro MD Work Phone: [facility] 06-11-2024 08:07-0500 Systolic blood pressure 130 mm[Hg] Dr. Winifred Pedro MD Work Phone: [facility] 06-13-2023 08:16-0500 Body height 157.[address] Stewart Frederick Work Phone: [facility] 06-13-2023 08:16-0500 Body mass index (BMI) [Ratio] 27.6 kg/m2 Dr. Stewart Frederick Work Phone: [facility] 06-13-2023 08:16-0500 Body temperature 97.8 [degF] Dr. Stewart Frederick Work Phone: 9(023)031-787170 [place] [address] 06-13-2023 08:16-0500 Body weight 68.[address] Stewart Frederick Work Phone: 3(676)206-071070 [place] [address] 06-13-2023 08:16-0500 Diastolic blood pressure 80 mm[Hg] Dr. Stewart Frederick Work Phone: 7(906)251-547470 [place] [address] 06-13-2023 08:16-0500 Heart rate 66 /min Dr. Stewart Frederick Work Phone: 3(451)733-762570 [place] [address] 06-13-2023 08:16-0500 Respiratory rate 16 /min Dr. Stewart Frederick Work Phone: 9(262)842-346670 [place] [address] 06-13-2023 08:16-0500 SaO2% (BldA) [Mass fraction] 96 % Dr. Stewart Frederick Work Phone: 6(438)654-689170 [place] [address] 06-13-2023 08:16-0500 Systolic blood pressure 122 mm[Hg] Dr. Stewart Frederick Work Phone: 7(827)918-710570 [place] [address] 05-13-2023 13:39-0500 Body mass index (BMI) [Ratio] 27.6 kg/m2 Dr. Stewart Frederick Work Phone: 4(045)582-478070 [place] [address] 05-13-2023 13:39-0500 Body weight 68.[address] Stewart Frederick Work Phone: 4(325)926-800170 [place] [address] 05-13-2023 13:39-0500 Diastolic blood pressure 85 mm[Hg] Dr. Stewart Frederick Work Phone: 8(883)833-234870 [place] [address] 05-13-2023 13:39-0500 Heart rate 63 /min Dr. Stewart Frederick Work Phone: 6(983)755-325570 [place] [address] 05-13-2023 13:39-0500 Systolic blood pressure 129 mm[Hg] Dr. Stewart Frederick Work Phone: 4(246)491-517470 [place] [address] 03-29-2023 11:49-0400 Body mass index (BMI) [Ratio] 28 kg/m2 Dr. Stewart Frederick Work Phone: 5(304)832-877870 [place] [address] 03-29-2023 11:49-0400 Body weight 69.[address] Stewart Frederick Work Phone: 3(331)248-932470 [place] [address] 03-29-2023 11:49-0400 Diastolic blood pressure 80 mm[Hg] Dr. Stewart Frederick Work Phone: 1(615)005-911270 [place] [address] 03-29-2023 11:49-0400 Heart rate 59 /min Dr. Stewart Frederick Work Phone: 1(414)031-772770 [place] [address] 03-29-2023 11:49-0400 Systolic blood pressure 124 mm[Hg] Dr. Stewart Frederick Work Phone: 4(286)828-012670 [place] [address] 02-21-2023 13:03-0400 Body height 157.[address] Stewart Frederick Work Phone: 0(229)874-526670 [place] [address] 02-21-2023 12:59-0400 Body mass index (BMI) [Ratio] 28.3 kg/m2 Dr. Stewart Frederick Work Phone: 4(094)164-969870 [place] [address] 02-21-2023 12:59-0400 Body weight 70.[address] Stewart Frederick Work Phone: 3(258)069-503570 [place] [address] 02-21-2023 12:59-0400 Diastolic blood pressure 84 mm[Hg] Dr. Stewart Frederick Work Phone: 5(316)290-052570 [place] [address] 02-21-2023 12:59-0400 Heart rate 65 /min Dr. Stewart Frederick Work Phone: 2(038)139-360770 [place] [address] 02-21-2023 12:59-0400 Systolic blood pressure 123 mm[Hg] Dr. Stewart Frederick Work Phone: 3(339)519-457270 [place] [address] 01-31-2023 14:48-0400 Body mass index (BMI) [Ratio] 28.5 kg/m2 Dr. Stewart Frederick Work Phone: 6(614)184-735770 [place] [address] 01-31-2023 14:48-0400 Body temperature 98.5 [degF] Dr. Stewart Frederick Work Phone: 9(771)443-477070 [place] [address] 01-31-2023 14:48-0400 Body weight 70.[address] Stewart Frederick Work Phone: 1(315)849-283970 [place] [address] 01-31-2023 14:48-0400 Diastolic blood pressure 81 mm[Hg] Dr. Stewart Frederick Work Phone: 7(527)455-324170 [place] [address] 01-31-2023 14:48-0400 Heart rate 63 /min Dr. Stewart Frederick Work Phone: 2(952)814-894170 [place] [address] 01-31-2023 14:48-0400 Respiratory rate 16 /min Dr. Stewart Frederick Work Phone: 1(751)219-398270 [place] [address] 01-31-2023 14:48-0400 SaO2% (BldA) [Mass fraction] 98 % Dr. Stewart Frederick Work Phone: 9(024)369-664470 [place] [address] 01-31-2023 14:48-0400 Systolic blood pressure 114 mm[Hg] Dr. Stewart Frederick Work Phone: 7(887)330-524970 [place] [address] 01-14-2023 09:18-0400 Body mass index (BMI) [Ratio] 28.7 kg/m2 Dr. Stewart Frederick Work Phone: 8(921)892-949170 [place] [address] 01-14-2023 09:18-0400 Body weight 71.[address] Stewart Frederick Work Phone: 1(251)553-995570 [place] [address] 01-14-2023 09:18-0400 Diastolic blood pressure 86 mm[Hg] Dr. Stewart Frederick Work Phone: 9(344)664-932370 [place] [address] 01-14-2023 09:18-0400 Heart rate 65 /min Dr. Stewart Frederick Work Phone: 6(068)468-335470 [place] [address] 01-14-2023 09:18-0400 Systolic blood pressure 134 mm[Hg] Dr. Stewart Frederick Work Phone: 8(303)287-496970 [place] [address] 12-10-2022 04:57-0400 Body mass index (BMI) [Ratio] 29.8 kg/m2 Dr. Stewart Frederick Work Phone: 8(256)868-937070 [place] [address] 12-10-2022 04:57-0400 Body weight 73.[address] Stewart Frederick Work Phone: 7(672)006-877470 [place] [address] 12-10-2022 04:57-0400 Diastolic blood pressure 62 mm[Hg] Dr. tSewart Frederick Work Phone: 2(607)938-658870 [place] [address] 12-10-2022 04:57-0400 Heart rate 65 /min Dr. Stewart Frederick Work Phone: 1(749)922-243070 [place] [address] 12-10-2022 04:57-0400 Systolic blood pressure 102 mm[Hg] Dr. Stewart Frederick Work Phone: 6(072)859-444370 [place] [address] 10-19-2022 07:47-0400 Body height 157.[address] Stewart Frederick Work Phone: 5(656)213-425570 [place] [address] 10-19-2022 07:47-0400 Body weight 76.[address] Stewart Frederick Work Phone: [phone] [place] [address] 10-12-2022 10:05-0400 Body mass index (BMI) [Ratio] 31.9 kg/m2 Dr. Stewart Frederick Work Phone: 1(398)[phone] [place] [address] 10-12-2022 10:05-0400 Body weight 76.[address] Stewart Frederick Work Phone: 7(617)205-962470 [place] [address] 10-12-2022 10:05-0400 Diastolic blood pressure 85 mm[Hg] Dr. Stewart Frederick Work Phone: 7(987)360-582970 [place] [address] 10-12-2022 10:05-0400 Systolic blood pressure 128 mm[Hg] Dr. Stewart Frederick Work Phone: 0([phone] [place] [address] 08-09-2022 08:39-0500 Body height 157.[address] Stewart Frederick Work Phone: [phone])[phone] [place] [address] 08-09-2022 08:36-0500 Body mass index (BMI) [Ratio] 32 kg/m2 Dr. Stewart Frederick Work Phone: [facility] 08-09-2022 08:36-0500 Body weight 76.[address] Stewart Frederick Work Phone: [facility] 08-09-2022 08:36-0500 Diastolic blood pressure 87 mm[Hg] Dr. Stewart Frederick Work Phone: [facility] 08-09-2022 08:36-0500 Systolic blood pressure 135 mm[Hg] Dr. Stewart Frederick Work Phone: [facility] 04-27-2022 13:26-0500 Body weight 72.12 kg Stewart Frederick MD Work Phone: [place] 04-27-2022 13:26-0500 Diastolic blood pressure 72 mm[Hg] Stewart Frederick MD Work Phone: [place] 04-27-2022 13:26-0500 Heart rate 54 /min Stewart Frederick MD Work Phone: [place] 04-27-2022 13:26-0500 SaO2% (BldA) [Mass fraction] 99 % Stewart Frederick MD Work Phone: [place] 04-27-2022 13:26-0500 Systolic blood pressure 122 mm[Hg] Stewart Frederick MD Work Phone: [place] 02-27-2022 10:10-0400 Body temperature 98.1 [degF] Dr. Stewart Frederick Work Phone: [facility] 02-27-2022 10:10-0400 Diastolic blood pressure 80 mm[Hg] Dr. Stewrat Frederick Work Phone: [facility] 02-27-2022 10:10-0400 Heart rate 44 /min Dr. Stewart Frederick Work Phone: [facility] 02-27-2022 10:10-0400 Respiratory rate 16 /min Dr. Stewart Frederick Work Phone: [facility] 02-27-2022 10:10-0400 SaO2% (BldA) [Mass fraction] 99 % Dr. Stewart Frederick Work Phone: [facility] 02-27-2022 10:10-0400 Systolic blood pressure 120 mm[Hg] Dr. Stewart Frederick Work Phone: [facility] 01-16-2022 08:39-0400 Body temperature 97.11 [degF] Stewart Frederick MD Work Phone: [place] 01-16-2022 08:39-0400 Body weight 69.85 kg Stewart Frederick MD Work Phone: [place] 01-16-2022 08:39-0400 Diastolic blood pressure 72 mm[Hg] Stewart Frederick MD Work Phone: [place] 01-16-2022 08:39-0400 Heart rate 60 /min Stewart Frederick MD Work Phone: [place] 01-16-2022 08:39-0400 Respiratory rate 16 /min Stewart Frederick MD Work Phone: [place] 01-16-2022 08:39-0400 Systolic blood pressure 112 mm[Hg] Stewart Frederick MD Work Phone: [place] 12-15-2021 15:40-0400 Body height 157.[address] Cassia Elliott Work Phone: [facility] Work Phone: 12-15-2021 15:40-0400 Body mass index (BMI) [Ratio] 27.4 kg/m2 Dr. Cassia Elliott Work Phone: [facility] Work Phone: 12-15-2021 15:40-0400 Body weight 68.[address] Cassia Elliott Work Phone: [facility] Work Phone: 10-20-2021 14:38-0400 Body mass index (BMI) [Ratio] 27.6 kg/m2 Dr. Cassia Elliott Work Phone: [facility] Work Phone: 10-20-2021 14:38-0400 Body weight 68.[address] Cassia Elliott Work Phone: [facility] Work Phone: 10-20-2021 14:38-0400 Diastolic blood pressure 60 mm[Hg] Dr. Cassia Elliott Work Phone: [facility] Work Phone: 10-20-2021 14:38-0400 Systolic blood pressure 100 mm[Hg] Dr. Cassia Elliott Work Phone: [facility] Work Phone: 10-06-2021 07:06-0400 Body height 156.2 cm Tami Bucio 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[employer] Work Phone: [place] 10-06-2021 07:06-0400 Body weight 65.77 kg Tami Bucio 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[employer] Work Phone: [place] 10-06-2021 07:06-0400 Diastolic blood pressure 70 mm[Hg] Tami Bucio 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[employer] Work Phone: [place] 10-06-2021 07:06-0400 Heart rate 64 /min Tami Bucio 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[employer] Work Phone: [place] 10-06-2021 07:06-0400 Respiratory rate 16 /min Tami Bucio 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[employer] Work Phone: [place] 10-06-2021 07:06-0400 Systolic blood pressure 110 mm[Hg] Tami Bucio 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[employer] Work Phone: [place] 09-04-2021 07:41-0400 Body height 156.8 cm Tami Bucio 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[employer] Work Phone: [place] 09-04-2021 07:41-0400 Body weight 65.32 kg Tami Bucio 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[employer] Work Phone: [place] 09-04-2021 07:41-0400 Diastolic blood pressure 74 mm[Hg] Tami Bucio 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[employer] Work Phone: [place] 09-04-2021 07:41-0400 Heart rate 60 /min Tami Bucio 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[employer] Work Phone: [place] 09-04-2021 07:41-0400 Respiratory rate 16 /min Tami Bucio 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[employer] Work Phone: [place] 09-04-2021 07:41-0400 Systolic blood pressure 110 mm[Hg] Tami Bucio 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[employer] Work Phone: [place] 08-10-2021 13:03-0500 Body height 157.[address] Cassia Elliott Work Phone: [facility] Work Phone: 08-10-2021 13:03-0500 Body mass index (BMI) [Ratio] 26.3 kg/m2 Dr. Cassia Elliott Work Phone: [facility] Work Phone: 08-10-2021 13:03-0500 Body temperature 96.3 [degF] Dr. Cassia Elliott Work Phone: [facility] Work Phone: 08-10-2021 13:03-0500 Body weight 65.[address] Cassia Elliott Work Phone: [facility] Work Phone: 08-10-2021 13:03-0500 Diastolic blood pressure 60 mm[Hg] Dr. Cassia Elliott Work Phone: [facility] Work Phone: 08-10-2021 13:03-0500 Heart rate 62 /min Dr. Cassia Elliott Work Phone: [facility] Work Phone: 08-10-2021 13:03-0500 Respiratory rate 16 /min Dr. Cassia Elliott Work Phone: [facility] Work Phone: 08-10-2021 13:03-0500 SaO2% (BldA) [Mass fraction] 98 % Dr. Cassia Elliott Work Phone: [facility] Work Phone: 08-10-2021 13:03-0500 Systolic blood pressure 112 mm[Hg] Dr. Cassia Elliott Work Phone: [facility] Work Phone: Encounters Encounter Date Encounter Type Care Provider Facility Start: 11-08-2024 End: 11-08-2024 ambulatory Winifred Pedro Facility:[facility] Start: 11-05-2024 ambulatory Winifred Pedro Facility :[facility] Start: 10-26-2024 End: 10-26-2024 Patient encounter procedure Marley PASTRANA -[facility] Work Phone: Start: 10-26-2024 End: 10-26-2024 ambulatory Winifred Pedro Facility:[facility] Start: 10-25-2024 End: 10-25-[address] Winifred Pedro MD Work Phone: [facility] Work Phone: Start: 10-25-2024 End: 10-25-2024 Patient encounter procedure Sangeeta Dia CNM -Outpatient Breast Imaging Work Phone: Start: 10-25-2024 End: 10-25-2024 ambulatory Winifred Pedro Facility:[facility] Start: 10-10-2024 End: 10-10-[address] Winifred Pedro MD Work Phone: [facility] Work Phone: Start: 10-10-2024 End: 10-10-2024 Patient encounter procedure Marley PASTRANA -Laboratory, Specimen Work Phone: Start: 10-10-2024 End: 10-10-2024 ambulatory Winifred Pedro Facility:[facility] Start: 09-14-2024 ambulatory Winifred Willis Facility :[facility] Start: 09-14-2024 Non-patient / Non-visit Srinivas Alba nd, DO -[facility] Start: 09-14-2024 End: 09-14-2024 Admission to same day surgery center Srinivas Burgos DO -Endoscopy Work Phone: Start: 09-14-2024 End: 09-14-[address] Winifred Pedro MD Work Phone: [facility] Work Phone: Start: 08-27-2024 End: 08-27-[address] Armando Del Rosario DO -[facility] Work Phone: Start: 08-27-2024 End: 08-27-2024 ambulatory Winifred Pedro Facility:[facility] Start: 07-25-2024 End: 07-25-2024 ambulatory Winifred Pedro Facility:[facility] Start: 07-25-2024 End: 07-25-[address] Mj Kingsley MD -Physical Therapy Work Phone: Start: 07-13-2024 End: 07-13-2024 Patient encounter procedure Marley PASTRANA -[facility] Work Phone: Start: 07-13-2024 End: 07-13-2024 ambulatory Winifred Pedro Facility:[facility] Start: 06-11-2024 End: 06-11-[address] Winifred Pedro MD -[facility] Work Phone: Start: 06-11-2024 End: 06-11-2024 ambulatory Winifred Pedro Facility:[facility] Start: 05-11-2024 End: 05-11-2024 ambulatory Winifred Pedro Facility:[facility] Start: 04-24-2024 End: 04-24-2024 ambulatory Winifred Pedro Facility:[facility] Start: 04-23-2024 End: 04-23-2024 ambulatory Winifred Pedro Facility:[facility] Start: 04-18-2024 End: 04-18-2024 ambulatory Winifred Pedro Facility:[facility] Start: 04-16-2024 Encounter for other preprocedural examination Winifred Pedro [facility] Start: 04-16-2024 End: 04-16-2024 ambulatory Winifrde Pedro Facility:[facility] Start: 04-16-[address] Winifred Pedro MD Work Phone: [facility] Start: 04-16-2024 End: 04-16-2024 ambulatory Winifred Pedro Facility:[facility] Start: 04-12-2024 End: 04-12-2024 ambulatory Mj Kingsley Facility:[facility] Start: 03-17-2024 End: 03-17-2024 [facility] Start: 03-05-2024 End: 03-05-2024 ambulatory Winifred Pedro Facility:[facility] Start: 01-26-2024 End: 01-26-2024 ambulatory Winifredbrooks Pedro Facility:[facility] Start: 01-23-2024 End: 01-23-2024 ambulatory Winifredbrooks Pedro Facility:[facility] Start: 01-02-2024 End: 01-02-2024 ambulatory Winifred Pedro Facility:[facility] Start: 12-30-2023 End: 12-30-2023 ambulatory Winifredbrooks Pedro Facility:[facility] Start: 11-15-2023 Encounter for genera l adult medical examination without abnormal findings Winifredbrooks Pedro [facility] Start: 11-15-2023 End: 11-15-2023 ambulatory Winifred Pedro Facility:[facility] Start: 11-14-2023 End: 11-14-2023 ambulatory Winifred Pedro Facility:[facility] Start: 11-11-2023 ambulatory Winifred Pedro Facility :[facility] Start: 11-09-2023 ambulatory Stewart mccallum MD Work Phone: Internal Medicine [facility] Start: 06-13-2023 End: 06-13-[address] Stewart Frederick Work Phone: [facility] Work Phone: Start: 06-13-2023 End: 06-13-[address] Stewart Frederick Work Phone: [facility]-Radiology, [facility] Work Phone: Start: 06-13-2023 End: 06-13-[address] Stewart Frederick Work Phone: [facility] Work Phone: Start: 05-13-2023 End: 05-13-[address] Stewart Frederick Work Phone: [facility] Work Phone: Start: 03-29-2023 End: 03-29-[address] Stewart Frederick Work Phone: [facility] Work Phone: Start: 03-23-[address] Stewart galdamez Work Phone: [facility]-Employee Health Start: 03-23-2023 End: 03-23-[address] Stewart Frederick Work Phone: [facility] Work Phone: Start: 03-23-2023 End: 03-23-[address] Stewart Frederick Work Phone: [facility]-Laboratory Work Phone: Start: 02-21-2023 End: 02-21-[address] Stewart Frederick Work Phone: [facility] Work Phone: Start: 01-31-[address] Stewart Frederick Work Phone: [facility] Start: 01-31-2023 End: 01-31-2023 Encounter for general adult medical examination without abnormal findings Dr. Stewart Frederick Work Phone: [facility] Start: 01-31-2023 End: 01-31-[address] Stewart Frederick Work Phone: [facility] Work Phone: Start: 01-14-2023 End: 01-14-[address] Stewart Frederick Work Phone: [facility] Work Phone: Start: 12-10-2022 End: 12-10-[address] Stewart Frederick Work Phone: [facility] Work Phone: Start: 10-19-2022 End: 10-19-2022 Non-patient / Non-visit Dr. Stewart Frederick Work Phone: [facility] Start: 10-19-2022 End: 10-19-[address] Stewart Frederick Work Phone: [facility]-Ultrasound, [facility] Start: 10-19-2022 End: 11-03-[address] Stewart Frederick Work Phone: [facility] Work Phone: Start: 10-19-2022 End: 11-03-[address] Stewart Frederick Work Phone: [facility]-Nutritional Services Start: 10-12-2022 End: 10-12-[address] Stewart Frederick Work Phone: [facility] Start: 09-29-2022 End: 09-29-[address] Stewart Frederick Work Phone: [facility] Work Phone: Start: 09-29-2022 End: 09-29-[address] Stewart Frederick Work Phone: [facility]-Outpatient Breast Imaging Start: 08-11-2022 ambulatory Stewart mccallum MD Work Phone: Internal Medicine [facility] Start: 08-09-2022 End: 08-09-[address] Stewart Frederick Work Phone: [facility] Work Phone: Start: 08-09-2022 End: 08-09-[address] Stewart Frederick Work Phone: [facility]-Laboratory Start: 08-09-2022 End: 08-09-[address] Stewart Frederick Work Phone: [facility] Start: 06-17-2022 End: 06-17-2022 ambulatory [facility] Work Phone: Start: 06-17-2022 End: 06-17-[address] Stewart Frederick Work Phone: [facility]-Radiology, [facility] Start: 06-10-2022 End: 06-10-[address] Stewart Frederick Work Phone: [facility] Work Phone: Start: 06-10-2022 End: 06-10-[address] Stewart Frederick Work Phone: [facility]-Laboratory Start: 04-27-2022 End: 04-27-2022 Office outpatient visit 25 minutes Stewart Frederick MD Work Phone: [facility] [place] Comment on above: Hypertension, unspec ified type (Primary Dx); LPRD (laryngopharyngeal reflux disease); Chronic constipation; Vitamin D deficiency; Encounter for long-term current use of medication; Encounter for immunization; Persistent depressive disorder Start: 04-20-2022 End: 04-20-[address] Stewart Frederick Work Phone: [facility] Work Phone: Start: 04-20-2022 End: 04-20-[address] Stewart Frederick Work Phone: [facility]-Radiology, [facility] Start: 04-19-2022 ambulatory Stewart mccallum MD Work Phone: [facility] [place] Comment on above: Test Results/Immuniz ations Start: 04-07-2022 Telephone encounter Stewart vance MD Work Phone: [facility] [place] Comment on above: Results (03/29 [facility]) Start: 03-29-2022 End: 03-29-[address] Stewart Frederick Work Phone: [facility]-Sleep Lab Start: 02-27-2022 End: 02-27-[address] Stewart Frederick Work Phone: [facility] Start: 02-11-2022 End: 02-11-[address] Stewart Frederick Work Phone: [facility] Work Phone: Start: 02-11-2022 End: 02-11-[address] Stewart Frederick Work Phone: [facility]-Laboratory Start: 01-16-2022 End: 01-16-2022 Office outpatient visit 25 minutes Stewart Frederick MD Work Phone: [facility] [place] Comment on above: Hypertension, unspec ified type (Primary Dx); Vitamin D deficiency; LPRD (laryngopharyngeal reflux disease); Encounter for long-term current use of medication; RLS (restless legs syndrome); Daytime sleepiness Start: 12-28-2021 End: 12-28-[address] Stewrat Frederick Work Phone: [facility] Start: 12-24-2021 End: 12-24-[address] Stewart Frederick Work Phone: [facility] Start: 12-22-2021 End: 12-22-[address] Stewart Frederick Work Phone: [facility] Start: 12-17-2021 End: 12-17-[address] Cassia Elliott Work Phone: [facility] Start: 12-15-2021 End: 12-15-[address] Cassia Elliott Work Phone: [facility] Start: 10-20-2021 End: 10-20-[address] Cassia Elliott Work Phone: [facility] Start: 10-14-2021 ambulatory Tami Bucio APRN.[employer] Work Phone: [facility] [place] Comment on above: Lexapro Start: 10-06-2021 End: 10-06-2021 Patient encounter procedure Tami Bucio APRN.[employer] Work Phone: [facility] [place] Comment on above: Binge eating disorde r (Primary Dx); Anxiety and depression Start: 10-01-[address] Liseth Elliott Work Phone: [facility] Start: 09-28-2021 End: 09-28-[address] Cassia Elliott Work Phone: [facility]-Outpatient Breast Imaging Start: 09-09-2021 Chart abstracting Mari HANKS Work Phone: Adult Psychology Start: 09-04-2021 Chart abstracting Mari mccallum [employer]ER Work Phone: Adult [facility] Start: 09-04-2021 End: 09-04-2021 Patient encounter procedure Tami Bucio APRN.[employer] Work Phone: [facility] [place] Comment on above: Anxiety and depressi on (Primary Dx); Fatigue, unspecified type; Encounter for screening for HIV; Need for hepatitis C screening test; Weight gain; Encounter for screening mammogram for breast cancer; Hypertension, unspecified type; Insomnia, unspecified type; Constipation, unspecified constipation type; Vitamin D deficiency Start: 08-10-2021 End: 08-10-[address] Cassia Elliott Work Phone: [facility]-Laboratory, [facility] Start: 02-16-[address] Cassia Elliott Work Phone: [facility] Start: 11-26-[address] Cassia Elliott Work Phone: [facility] Procedures Date Procedure Procedure Detail Performing Clinician Start: 10-25-[address] Winifred Pedro MD Work Phone: Start: 09-14-[address] Winifred lara MD Work Phone: Start: 06-13-2023 X-ray of cervical spine Dr. Stewart mccallum Work Phone: Start: 06-13-2023 X-ray of lumbar spine, two or three views Dr. Stewart Frederick Work Phone: Start: 10-19-[address] Stewart Frederick Work Phone: Start: 09-29-[address] Stewart Frederick Work Phone: Start: 06-17-2022 X-ray of both feet Dr. Stewart Frederick Work Phone: Start: 04-20-2022 X-ray of both feet Dr. Stewart Frederick Work Phone: Start: 12-15-2021 X-ray of lumbosacral spine Dr. Cassia Elliott Work Phone: Start: 09-28-[address] Cassia Elliott Work Phone: Start: 02-27-2019 Colonoscopy Stewart Frederick MD Work Phone: Start: 02-10-2011 Mammography Tami Bucio APRN.CNS Work Phone: Start: 03-02-2008 Lipid 1996 panel - Serum or Plasma Stewart Frederick MD Work Phone: Plan of Treatment Date Care Activity Detail Author Start: 04-27-2032 Urine microalbumin profile [place] Start: 09-14-2024 Egd transoral biopsy single/multiple EGD BIOPSY SINGLE/MULTIPLE [facility] Start: 09-14-2024 Patient discharge [facility] Start: 02-05-2024 Influenza vaccination Influenz a Vaccine (Season Ended) [place] Start: 09-30-2023 Screening for malign ant neoplasm of breast Mammogram Screening [place] Start: 08-27-2023 Diabetes Screening Diabetes Screenin g [place] Start: 08-27-2023 Lipid panel Lipid Screening [facility] Start: 08-27-2023 Screening for malign ant neoplasm of colon [place] Start: 06-13-2023 Patient referral [facility] Work Phone: Start: 04-27-2023 ANNUAL PCP TEAM LITIGATION SUPPORT ANALYST CRISTÓBAL DISEASE VISIT ANNUAL PCP TEAM CHRONIC DISEASE VISIT [place] Start: 04-27-2023 BP CONTROLLED (<130/80) BP CONTROLLE D (<130/80) [place] Start: 04-27-2023 HEPATITIS B (1 of 3 - 3-dose series) HEPATITIS B (1 of 3 - 3-dose series) [place] Comment on above: Postponed from 08/26 (Declined at this time) Start: 02-04-2023 Covid-19 Vaccine ( season) Covid-19 Vaccine () [place] Start: 01-16-2023 ANNUAL PCP TEAM LITIGATION SUPPORT ANALYST CRISTÓBAL DISEASE VISIT ANNUAL PCP TEAM CHRONIC DISEASE VISIT [place] Start: 01-16-2023 BP CONTROLLED (<130/80) BP CONTROLLE D (<130/80) [place] Start: 08-09-2022 Testosterone Free [Mass/volume] in Serum or Plasma [facility] Start: 08-09-2022 17-Hydroxyprogestero ne [Mass/volume] in Serum or Plasma [facility] Start: 04-27-2022 End: 06-27-2022 25-hydroxyvitamin D3 [Mass/volume] in Serum or Plasma VITAMIN D 25 HYDROXY Lab Routine Vitamin D deficiency Encounter for long-term current use of medication Expected: 04/27/2022, Expires: 06/27/2022 [facility] Work Phone: Comment on above: Expected: 04/27/2022 , Expires: 06/27/2022 Start: 04-27-2022 End: 06-27-2022 CBC panel - Blood by Automated count CBC Lab Routine Hypertension, unspecified type Encounter for long-term current use of medication Expected: 04/27/2022, Expires: 06/27/2022 [facility] Work Phone: Comment on above: Expected: 04/27/2022 , Expires: 06/27/2022 Start: 04-27-2022 End: 06-27-2022 Comprehensive metabolic 2000 panel - Serum or Plasma COMP METABOLIC PANEL Lab Routine Hypertension, unspecified type Encounter for long-term current use of medication Expected: 04/27/2022, Expires: 06/27/2022 [facility] Work Phone: Comment on above: Expected: 04/27/2022 , Expires: 06/27/2022 Start: 04-27-2022 End: 06-27-2022 Magnesium [Mass/volume] in Serum or Plasma MAGNESIUM BLD Lab Routine Encounter for long-term current use of medication Expected: 04/27/2022, Expires: 06/27/2022 [facility] Work Phone: Comment on above: Expected: 04/27/2022 , Expires: 06/27/2022 Start: 02-16-2022 End: 04-18-2022 25-hydroxyvitamin D3 [Mass/volume] in Serum or Plasma VITAMIN D 25 HYDROXY Lab Routine Vitamin D deficiency Encounter for long-term current use of medication Expected: 02/16/2022 (Approximate), Expires: 04/18/2022 [facility] Work Phone: Comment on above: Expected: 02/16/2022 (Approximate), Expires: 04/18/2022 Start: 02-16-2022 End: 04-18-2022 CBC panel - Blood by Automated count CBC Lab Routine Hypertension, unspecified type Encounter for long-term current use of medication Expected: 02/16/2022 (Approximate), Expires: 04/18/2022 [facility] Work Phone: Comment on above: Expected: 02/16/2022 (Approximate), Expires: 04/18/2022 Start: 02-16-2022 End: 04-18-2022 Comprehensive metabolic 2000 panel - Serum or Plasma COMP METABOLIC PANEL Lab Routine Hypertension, unspecified type Encounter for long-term current use of medication Expected: 02/16/2022 (Approximate), Expires: 04/18/2022 [facility] Work Phone: Comment on above: Expected: 02/16/2022 (Approximate), Expires: 04/18/2022 Start: 02-16-2022 End: 04-18-2022 Ferritin [Mass/volume] in Serum or Plasma FERRITIN BLD Lab Routine RLS (restless legs syndrome) Expected: 02/16/2022 (Approximate), Expires: 04/18/2022 [facility] Work Phone: Comment on above: Expected: 02/16/2022 (Approximate), Expires: 04/18/2022 Start: 02-04-2022 Influenza vaccination INFLUENZA (#1) [place] Start: 12-04-2021 End: 02-03-2022 Comprehensive metabolic 2000 panel - Serum or Plasma COMP METABOLIC PANEL Lab Routine Weight gain Expected: 12/04/2021 (Approximate), Expires: 02/03/2022 [facility] Work Phone: Comment on above: Expected: 12/04/2021 (Approximate), Expires: 02/03/2022 Start: 12-04-2021 End: 02-03-2022 Hepatitis C virus Ab [Presence] in Serum HEP C AB IA W/CONF SCRN Lab Routine Need for hepatitis C screening test Expected: 12/04/2021 (Approximate), Expires: 02/03/2022 [facility] Work Phone: Comment on above: Expected: 12/04/2021 (Approximate), Expires: 02/03/2022 Start: 12-04-2021 End: 02-03-2022 HIV 1+2 Ab [Presence] in Serum or Plasma by Immunoassay HIV 1 2 COMBO(AG/AB),WITH REFLEX TO DIFFERENTIATION Lab Routine Encounter for screening for HIV Expected: 12/04/2021 (Approximate), Expires: 02/03/2022 [facility] Work Phone: Comment on above: Expected: 12/04/2021 (Approximate), Expires: 02/03/2022 Start: 12-04-2021 End: 02-03-2022 Thyrotropin [Units/volume] in Serum or Plasma TSH BLD Lab Routine Fatigue, unspecified type Expected: 12/04/2021 (Approximate), Expires: 02/03/2022 [facility] Work Phone: Comment on above: Expected: 12/04/2021 (Approximate), Expires: 02/03/2022 Start: 06-03-2021 COVID-19 VACCINE (4 - Booster for Moderna series) COVID-19 VACCINE (4 - Booster for Moderna series) [place] Start: 09-04-2020 Urine microalbumin profile DTAP,TDAP,TD (3 - Td or Tdap) [place] Start: 2018 Mammography MAMMOGRAM [place] Start: 03-04-2015 PAP TESTING PAP TESTING [place] Start: 03-04-2015 Screening for malign ant neoplasm of cervix Cervical Cancer Screening [place] Start: 02-02-2015 HPV TESTING HPV TESTING [place] Start: 1997 Hepatitis B Vaccine (1 of 3 - 19+ 3-dose series) Hepatitis B Vaccine (1 of 3 - 19+ 3-dose series) [place] Start: 1996 BP Controlled (<130/80) BP Controlle d (<130/80) [place] Start: 1996 HEPATITIS C SCREENING HEPATITIS C SC KEHINDE [place] Start: 1978 HEPATITIS B (1 of 3 - 3-dose series) HEPATITIS B (1 of 3 - 3-dose series) [place] Cortisol [Mass/volum e] in Serum or Plasma [facility] Estradiol (E2) [Mass/volume] in Serum or Plasma [facility] Follicle stimulating hormone measurement [facility] Hemoglobin A1c/Hemoglobin.total in Blood [facility] End: 09-10-2023 VALE SCREENING VALE SCREENING Radiology Routine Encounter for screening mammogram for breast cancer 1 Occurrences starting 08/11/2022 until 09/10/2023 [facility] Work Phone: Comment on above: 1 Occurrences starti ng 08/11/2022 until 09/10/2023 End: 10-04-2022 VALE SCREENING W SYDNEY VALE SCREENING W SYDNEY Radiology Routine Encounter for screening mammogram for breast cancer 1 Occurrences starting 09/04/2021 until 10/04/2022 [facility] Work Phone: Comment on above: 1 Occurrences starti ng 09/04/2021 until 10/04/2022 MG Breast - bilatera l Screening [facility] End: 12-08-2024 MG Breast Screening VALE SCREENING Radiology Routine Encounter for screening mammogram for breast cancer 1 Occurrences starting 11/09/2023 until 12/08/2024 [facility] Work Phone: Comment on above: 1 Occurrences starti ng 11/09/2023 until 12/08/[address] [facility] Work Phone: End: 01-16-2023 Polysomnogram POLYSOMNOGRAM (PSG) Procedures Routine Hypertension, unspecified type RLS (restless legs syndrome) Daytime sleepiness 1 Occurrences starting 01/16/2022 until 01/16/2023 [facility] Work Phone: Comment on above: 1 Occurrences starti ng 01/16/2022 until 01/16/2023 Radionuclide gastric emptying study [facility] T4 free measurement [facility] Testosterone measurement [facility] Thyroid stimulating hormone measurement [facility] Immunizations Immunization Date Immunization Notes Care Provider Marco irby 02-24-2024 Covid (Spikevax) Dr. Winifred ashley MD Work Phone: [facility] 02-24-2024 influenza, seasonal, injectable, preservative free Dr. Winifred Pedro MD Work Phone: [facility] 03-24-2023 Covid (Spikevax) Dr. Stewart pena Work Phone: [facility] 03-09-2023 influenza, injectabl e, quadrivalent, preservative free Dr. Stewart Frederick Work Phone: [facility] 04-27-2022 TD(adult) unspecifie d formulation Stewart Frederick MD Work Phone: [facility] Work Phone: 04-27-2022 tetanus and diphther ia toxoids, adsorbed, preservative free, for adult use (5 Lf of tetanus toxoid and 2 Lf of diphtheria toxoid) Stewart Frederick MD Work Phone: [place] 03-05-2022 influenza, injectabl e, quadrivalent, preservative free Dr. Stewart Frederick Work Phone: [facility] 03-05-2022 influenza, seasonal, injectable Dr. Stewart Frederick Work Phone: [facility] 03-05-2022 influenza virus vaccine, unspecified formulation Stewart Frederick MD Work Phone: [place] 02-19-2022 Chris Javier nt Booster Dr. Stewart Frederick Work Phone: [facility] 04-08-2021 Covid LoraineModerna) Dr. Alberto Elliott Work Phone: [facility] 03-03-2021 influenza, injectabl e, quadrivalent, preservative free Dr. Stewart Frederick Work Phone: [facility] 03-03-2021 influenza, seasonal, injectable Dr. Cassia Elliott Work Phone: [facility] 03-03-2021 influenza, seasonal, injectable, preservative free Tami Bucio 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[employer] Work Phone: [place] Work Phone: 07-07-2020 Covid (Moderna) Dr. Alberto Elliott Work Phone: [facility] 06-09-2020 Claudioid (Moderna) Dr. Alberto Elliott Work Phone: [facility] 03-04-2020 influenza, injectabl e, quadrivalent, preservative free Dr. Stewart Frederick Work Phone: [facility] 03-04-2020 influenza, seasonal, injectable Dr. Cassia Elliott Work Phone: [facility] 03-04-2020 influenza, seasonal, injectable, preservative free Tami Bucio 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[employer] Work Phone: [place] Work Phone: 03-27-2019 influenza, injectabl e, quadrivalent, preservative free Dr. Stewart Frederick Work Phone: [facility] 03-27-2019 influenza, seasonal, injectable Tami Bucio 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[employer] Work Phone: [place] Work Phone: 03-20-2018 influenza, injectabl e, quadrivalent, preservative free Dr. Stewart Frederick Work Phone: [facility] 03-20-2018 influenza, seasonal, injectable Tami Bucio 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[employer] Work Phone: [place] Work Phone: 03-02-2017 influenza, injectabl e, quadrivalent, preservative free Dr. Stewart Frederick Work Phone: [facility] 03-02-2017 influenza, seasonal, injectable Tami Bucio 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[employer] Work Phone: [place] Work Phone: 03-04-2016 influenza, injectabl e, quadrivalent, preservative free Dr. Stewart Frederick Work Phone: [facility] 03-04-2016 influenza, seasonal, injectable Tami Bucio 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[employer] Work Phone: [place] Work Phone: 03-06-2015 influenza, injectabl e, quadrivalent, preservative free Dr. Stewart Frederick Work Phone: [facility] 03-06-2015 influenza, seasonal, injectable Dr. Cassia Elliott Work Phone: [facility] 03-06-2015 influenza, seasonal, injectable, preservative free Tami Bucio 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[employer] Work Phone: [place] Work Phone: 03-06-2014 influenza, injectabl e, quadrivalent, preservative free Dr. Stewart Frederick Work Phone: [facility] 03-06-2014 influenza, seasonal, injectable Tami Bucio 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[employer] Work Phone: [place] Work Phone: 06-05-[address] Cassia Elliott Work Phone: [facility] 06-05-2013 influenza, seasonal, injectable, preservative free Tami Bucio 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[employer] Work Phone: [place] Work Phone: 09-04-2010 diphtheria, tetanus toxoids and acellular pertussis vaccine Tami Bucio 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[employer] Work Phone: [place] Work Phone: 08-31-2010 tetanus toxoid, reduced diphtheria toxoid, and acellular pertussis vaccine, adsorbed Tami Bucio 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[employer] Work Phone: [place] Work Phone: Payers Date Payer Category Payer Self-pay [id number] 2023 Unknown [id number] 2021 Unknown MMO MMO TPA [id number] 2021-Present [address] [place] [address] PPO [id number] 2021 Unknown [id number] 2016 Unknown [id number] Unknown [facility] [id number] Unknown [id number] [id number] Unknown [id number] [id number] Unknown [id number] 2.16.840.1.117602.3.579.2.462 Unknown [id number] [id number] Unknown [id number] 2.16.840.1.925518.3.579.2.462 Unknown [id number] 2.16.840.1.215380.3.579.2.462 Unknown [id number] 2.16.840.1.889127.3.579.2.462 Unknown [id number] 2.16.840.1.905546.3.579.2.462 Unknown [id number] 2.840.1.441493.3.579.2.462 Unknown [id number] 2.840.1.767167.3.579.2.462 Unknown [id number] 2.16.840.1.250619.3.579.2.462 Unknown [id number] 2.840.1.927048.3.579.2.462 Unknown [id number] 2.840.1.332157.3.579.2.462 Unknown [id number] 2.840.1.595273.3.579.2.462 Unknown [id number] 2.840.1.917015.3.579.2.462 Unknown [id number] 2.840.1.164715.3.579.2.462 Unknown [id number] 2.840.1.417253.3.579.2.462 Unknown [id number] 2.840.1.700456.3.579.2.462 Unknown [id number] 2.840.1.956248.3.579.2.462 Unknown [id number] 2.840.1.222022.3.579.2.462 Unknown [id number] 2.840.1.455315.3.579.2.462 Unknown [id number] 2.840.1.495861.3.579.2.462 Unknown [id number] 2.840.1.596785.3.579.2.462 Unknown [id number] 2.840.1.839716.3.579.2.462 Unknown [id number] 2.840.1.047793.3.579.2.462 Unknown [id number] 2.840.1.740608.3.579.2.462 Unknown [id number] [id number] Social History Date Type Detail Facility Start: 01-16-2022 End: 09-10-2024 Tobacco smoking status NHIS Never smoked tobacco [place] Start: 09-04-2021 End: 01-16-2022 Alcohol intake Current drinker of alcohol (finding) [place] Start: 09-04-2021 History SDOH Alcohol Comment rare, on weekends [place] Start: 1980 Sex Assigned At Female C [facility] Start: 08-25-2021 End: 04-27-2022 Exposure to SARS-CoV-2 (event) Not sure [place] Work Phone: Start: 09-29-2021 History SDOH Alcohol Frequency 4 [place] Start: 09-29-2021 End: 04-26-2022 History SDOH Alcohol Std Drinks 1 [place] Start: 09-29-2021 End: 04-26-2022 History SDOH Alcohol Binge 2 [place] Start: 09-29-2021 History SDOH Social Connections Living 7 [place] Start: 09-29-2021 History SDOH Physica l Activity MPS 6 [place] Start: 08-10-2021 End: 06-13-2023 Tobacco smoking status NHIS Unknown if ever smoked [facility] Start: 07-18-2020 Non-smoker [facility] Start: 01-16-2022 Tobacco use and exposure Smokeless tobacco non-user [place] Work Phone: Start: 09-29-2021 End: 06-21-2022 History of Social function [place] Start: 09-29-2021 End: 06-21-2022 Social connection and isolation panel [place] Do you belong to any clubs or organizations such as samaritan groups, unions, fraternal or athletic groups, or school groups? Yes [place] Are you now , , , , never or living with a partner? Never [place] How often to you hav e a drink containing alcohol? 2-3 time sa week [place] How many standard drinks containing alcohol do you have on a typical day? 1 or 2 [place] How often do you hav e 6 or more drinks on 1 occasion? Less than monthly [place] How hard is it for y ou to pay for the very basics like food, housing, medical care, and heating Not very hard [place] Adult Depression Screening Assessment 5 [place] Do you feel stress - tense, restless, nervous, or anxious, or unable to sleep at night because your mind is troubled all the time - these days [OSQ] Rather much [place] (I/We) worried whesuma er (my/our) food would run out before (I/we) got money to buy more. Never true [place] The food that (I/we) bought just didn't last, and (I/we) didn't have money to get more. Sometimes true [place] In the past 12 month s, was there a time when you were not able to pay the mortgage or rent on time? No [place] Start: 09-04-2021 Gender identity Identifies as female gender (finding) [place] Start: 09-04-2021 Sexual orientation Heterosexual (fin ding) [place] Start: 09-14-2024 Sex Female (finding) [facility] NEGATED: Highlighted row Not [facility] Medical Equipment Procedure Code Equipment Code Equipment Origin al Text Equipment Identifier Dates Bunionectomy 3.5 CORTICAL FDA Start: 07-25-2020 Bunionectomy K-WIRE,.062X9 DB L BAY[place]ET FDA Start: 07-25-2020 Bunionectomy SMALL PLANTAR LA PIDUS PLATE FDA Start: 07-25-2020 Bunionectomy 3.5 LOCKING SCREW FDA Start : 07-25-2020 Bunionectomy 3.5 LOCKING SCREW FDA Start : 07-25-2020 Bunionectomy 3.5 LOCKING SCREW FDA Start : 07-25-2020 Bunionectomy 3.5 LOCKING SCREW FDA Start : 07-25-2020 Bunionectomy 4.0 FT COMP SCREW FDA Start : 07-25-2020 Bunionectomy 4.0 FT COMP SCREW FDA Start : 07-25-2020 Bunionectomy K-WIRE,.045 X 4 DBL [place]ET FDA Start: 07-25-2020 Bunionectomy K-WIRE,.045 X 4 DBL [place] FDA Start: 07-25-2020 Bunionectomy 3.5 XL SCREW FDA Start: 03-06-2021 Bunionectomy 3.5 MM KL SCREW FDA Start: 03-06-2021 Bunionectomy 3.5 MM KL SCREW FDA Start: 03-06-2021 Bunionectomy 3.5 MM XL SCREW FDA Start: 03-06-2021 Bunionectomy 3.5MM HEADESS COMPRESSION SCRW FDA Start: 03-06-2021 Bunionectomy 4.0 MILDRED PT SCREW FDA Start : 03-06-2021 Bunionectomy PLANTAR LAPIDOS PLATE SHORT FDA Start: 03-06-2021 Bunionectomy 3.5 CORTICAL FDA Start: 07-25-2020 Bunionectomy K-WIRE,.062X9 DB L BAYONET TH FDA Start: 07-25-2020 Bunionectomy SMALL PLANTAR LA PIDUS PLATE FDA Start: 07-25-2020 Bunionectomy 3.5 LOCKING SCREW FDA Start : 07-25-2020 Bunionectomy 3.5 LOCKING SCREW FDA Start : 07-25-2020 Bunionectomy 3.5 LOCKING SCREW FDA Start : 07-25-2020 Bunionectomy 3.5 LOCKING SCREW FDA Start : 07-25-2020 Bunionectomy 4.0 FT COMP SCREW FDA Start : 07-25-2020 Bunionectomy 4.0 FT COMP SCREW FDA Start : 07-25-2020 Bunionectomy K-WIRE,.045 X 4 DBL [place] FDA Start: 07-25-2020 Bunionectomy K-WIRE,.045 X 4 DBL [place] FDA Start: 07-25-2020 Bunionectomy 3.5 XL SCREW FDA Start: 03-06-2021 Bunionectomy 3.5 MM KL SCREW FDA Start: 03-06-2021 Bunionectomy 3.5 MM KL SCREW FDA Start: 03-06-2021 Bunionectomy 3.5 MM XL SCREW FDA Start: 03-06-2021 Bunionectomy 3.5MM HEADESS COMPRESSION SCRW FDA Start: 03-06-2021 Bunionectomy 4.0 MILDRED PT SCREW FDA Start : 03-06-2021 Bunionectomy PLANTAR LAPIDOS PLATE SHORT FDA Start: 03-06-2021 Bunionectomy 3.5 CORTICAL FDA Start: 07-25-2020 Bunionectomy K-WIRE,.062X9 DB L [place] FDA Start: 07-25-2020 Bunionectomy SMALL PLANTAR LA PIDUS PLATE FDA Start: 07-25-2020 Bunionectomy 3.5 LOCKING SCREW FDA Start : 07-25-2020 Bunionectomy 3.5 LOCKING SCREW FDA Start : 07-25-2020 Bunionectomy 3.5 LOCKING SCREW FDA Start : 07-25-2020 Bunionectomy 3.5 LOCKING SCREW FDA Start : 07-25-2020 Bunionectomy 4.0 FT COMP SCREW FDA Start : 07-25-2020 Bunionectomy 4.0 FT COMP SCREW FDA Start : 07-25-2020 Bunionectomy K-WIRE,.045 X 4 DBL [place] FDA Start: 07-25-2020 Bunionectomy K-WIRE,.045 X 4 DBL [place] FDA Start: 07-25-2020 Bunionectomy 3.5 XL SCREW FDA Start: 03-06-2021 Bunionectomy 3.5 MM KL SCREW FDA Start: 03-06-2021 Bunionectomy 3.5 MM KL SCREW FDA Start: 03-06-2021 Bunionectomy 3.5 MM XL SCREW FDA Start: 03-06-2021 Bunionectomy 3.5MM HEADESS COMPRESSION SCRW FDA Start: 03-06-2021 Bunionectomy 4.0 MILDRED PT SCREW FDA Start : 03-06-2021 Bunionectomy PLANTAR LAPIDOS PLATE SHORT FDA Start: 03-06-2021 Bunionectomy 3.5 CORTICAL FDA Start: 07-25-2020 Bunionectomy K-WIRE,.062X9 DB L B[place] FDA Start: 07-25-2020 Bunionectomy SMALL PLANTAR LA PIDUS PLATE FDA Start: 07-25-2020 Bunionectomy 3.5 LOCKING SCREW FDA Start : 07-25-2020 Bunionectomy 3.5 LOCKING SCREW FDA Start : 07-25-2020 Bunionectomy 3.5 LOCKING SCREW FDA Start : 07-25-2020 Bunionectomy 3.5 LOCKING SCREW FDA Start : 07-25-2020 Bunionectomy 4.0 FT COMP SCREW FDA Start : 07-25-2020 Bunionectomy 4.0 FT COMP SCREW FDA Start : 07-25-2020 Bunionectomy K-WIRE,.045 X 4 DBL [place] FDA Start: 07-25-2020 Bunionectomy K-WIRE,.045 X 4 DBL [place] FDA Start: 07-25-2020 Bunionectomy 3.5 XL SCREW FDA Start: 03-06-2021 Bunionectomy 3.5 MM KL SCREW FDA Start: 03-06-2021 Bunionectomy 3.5 MM KL SCREW FDA Start: 03-06-2021 Bunionectomy 3.5 MM XL SCREW FDA Start: 03-06-2021 Bunionectomy 3.5MM HEADESS COMPRESSION SCRW FDA Start: 03-06-2021 Bunionectomy 4.0 MILDRED PT SCREW FDA Start : 03-06-2021 Bunionectomy PLANTAR LAPIDOS PLATE SHORT FDA Start: 03-06-2021 Bunionectomy 3.5 CORTICAL FDA Start: 07-25-2020 Bunionectomy K-WIRE,.062X9 DB L [place] FDA Start: 07-25-2020 Bunionectomy SMALL PLANTAR LA PIDUS PLATE FDA Start: 07-25-2020 Bunionectomy 3.5 LOCKING SCREW FDA Start : 07-25-2020 Bunionectomy 3.5 LOCKING SCREW FDA Start : 07-25-2020 Bunionectomy 3.5 LOCKING SCREW FDA Start : 07-25-2020 Bunionectomy 3.5 LOCKING SCREW FDA Start : 07-25-2020 Bunionectomy 4.0 FT COMP SCREW FDA Start : 07-25-2020 Bunionectomy 4.0 FT COMP SCREW FDA Start : 07-25-2020 Bunionectomy K-WIRE,.045 X 4 DBL [place] FDA Start: 07-25-2020 Bunionectomy K-WIRE,.045 X 4 DBL [place] FDA Start: 07-25-2020 Bunionectomy 3.5 XL SCREW FDA Start: 03-06-2021 Bunionectomy 3.5 MM KL SCREW FDA Start: 03-06-2021 Bunionectomy 3.5 MM KL SCREW FDA Start: 03-06-2021 Bunionectomy 3.5 MM XL SCREW FDA Start: 03-06-2021 Bunionectomy 3.5MM HEADESS COMPRESSION SCRW FDA Start: 03-06-2021 Bunionectomy 4.0 MILDRED PT SCREW FDA Start : 03-06-2021 Bunionectomy PLANTAR LAPIDOS PLATE SHORT FDA Start: 03-06-2021 Bunionectomy 3.5 CORTICAL FDA Start: 07-25-2020 Bunionectomy K-WIRE,.062X9 DB L [place] FDA Start: 07-25-2020 Bunionectomy SMALL PLANTAR LA PIDUS PLATE FDA Start: 07-25-2020 Bunionectomy 3.5 LOCKING SCREW FDA Start : 07-25-2020 Bunionectomy 3.5 LOCKING SCREW FDA Start : 07-25-2020 Bunionectomy 3.5 LOCKING SCREW FDA Start : 07-25-2020 Bunionectomy 3.5 LOCKING SCREW FDA Start : 07-25-2020 Bunionectomy 4.0 FT COMP SCREW FDA Start : 07-25-2020 Bunionectomy 4.0 FT COMP SCREW FDA Start : 07-25-2020 Bunionectomy K-WIRE,.045 X 4 DBL [place] FDA Start: 07-25-2020 Bunionectomy K-WIRE,.045 X 4 DBL [place] FDA Start: 07-25-2020 Bunionectomy 3.5 XL SCREW FDA Start: 03-06-2021 Bunionectomy 3.5 MM KL SCREW FDA Start: 03-06-2021 Bunionectomy 3.5 MM KL SCREW FDA Start: 03-06-2021 Bunionectomy 3.5 MM XL SCREW FDA Start: 03-06-2021 Bunionectomy 3.5MM HEADESS COMPRESSION SCRW FDA Start: 03-06-2021 Bunionectomy 4.0 MILDRED PT SCREW FDA Start : 03-06-2021 Bunionectomy PLANTAR LAPIDOS PLATE SHORT FDA Start: 03-06-2021 Bunionectomy 3.5 CORTICAL FDA Start: 07-25-2020 Bunionectomy K-WIRE,.062X9 DB L B[place] FDA Start: 07-25-2020 Bunionectomy SMALL PLANTAR LA PIDUS PLATE FDA Start: 07-25-2020 Bunionectomy 3.5 LOCKING SCREW FDA Start : 07-25-2020 Bunionectomy 3.5 LOCKING SCREW FDA Start : 07-25-2020 Bunionectomy 3.5 LOCKING SCREW FDA Start : 07-25-2020 Bunionectomy 3.5 LOCKING SCREW FDA Start : 07-25-2020 Bunionectomy 4.0 FT COMP SCREW FDA Start : 07-25-2020 Bunionectomy 4.0 FT COMP SCREW FDA Start : 07-25-2020 Bunionectomy K-WIRE,.045 X 4 DBL [place] FDA Start: 07-25-2020 Bunionectomy K-WIRE,.045 X 4 DBL [place] FDA Start: 07-25-2020 Bunionectomy 3.5 XL SCREW FDA Start: 03-06-2021 Bunionectomy 3.5 MM KL SCREW FDA Start: 03-06-2021 Bunionectomy 3.5 MM KL SCREW FDA Start: 03-06-2021 Bunionectomy 3.5 MM XL SCREW FDA Start: 03-06-2021 Bunionectomy 3.5MM HEADESS COMPRESSION SCRW FDA Start: 03-06-2021 Bunionectomy 4.0 MILDRED PT SCREW FDA Start : 03-06-2021 Bunionectomy PLANTAR LAPIDOS PLATE SHORT FDA Start: 03-06-2021 Bunionectomy 3.5 CORTICAL FDA Start: 07-25-2020 Bunionectomy K-WIRE,.062X9 DB L BAYONET TH FDA Start: 07-25-2020 Bunionectomy SMALL PLANTAR LA PIDUS PLATE FDA Start: 07-25-2020 Bunionectomy 3.5 LOCKING SCREW FDA Start : 07-25-2020 Bunionectomy 3.5 LOCKING SCREW FDA Start : 07-25-2020 Bunionectomy 3.5 LOCKING SCREW FDA Start : 07-25-2020 Bunionectomy 3.5 LOCKING SCREW FDA Start : 07-25-2020 Bunionectomy 4.0 FT COMP SCREW FDA Start : 07-25-2020 Bunionectomy 4.0 FT COMP SCREW FDA Start : 07-25-2020 Bunionectomy K-WIRE,.045 X 4 DBL [place] FDA Start: 07-25-2020 Bunionectomy K-WIRE,.045 X 4 DBL [place] FDA Start: 07-25-2020 Bunionectomy 3.5 XL SCREW FDA Start: 03-06-2021 Bunionectomy 3.5 MM KL SCREW FDA Start: 03-06-2021 Bunionectomy 3.5 MM KL SCREW FDA Start: 03-06-2021 Bunionectomy 3.5 MM XL SCREW FDA Start: 03-06-2021 Bunionectomy 3.5MM HEADESS COMPRESSION SCRW FDA Start: 03-06-2021 Bunionectomy 4.0 MILDRED PT SCREW FDA Start : 03-06-2021 Bunionectomy PLANTAR LAPIDOS PLATE SHORT FDA Start: 03-06-2021 Bunionectomy 3.5 CORTICAL FDA Start: 07-25-2020 Bunionectomy K-WIRE,.062X9 DB L BAY[place]ET TH FDA Start: 07-25-2020 Bunionectomy SMALL PLANTAR LA PIDUS PLATE FDA Start: 07-25-2020 Bunionectomy 3.5 LOCKING SCREW FDA Start : 07-25-2020 Bunionectomy 3.5 LOCKING SCREW FDA Start : 07-25-2020 Bunionectomy 3.5 LOCKING SCREW FDA Start : 07-25-2020 Bunionectomy 3.5 LOCKING SCREW FDA Start : 07-25-2020 Bunionectomy 4.0 FT COMP SCREW FDA Start : 07-25-2020 Bunionectomy 4.0 FT COMP SCREW FDA Start : 07-25-2020 Bunionectomy K-WIRE,.045 X 4 DBL [place] FDA Start: 07-25-2020 Bunionectomy K-WIRE,.045 X 4 DBL [place] FDA Start: 07-25-2020 Bunionectomy 3.5 XL SCREW FDA Start: 03-06-2021 Bunionectomy 3.5 MM KL SCREW FDA Start: 03-06-2021 Bunionectomy 3.5 MM KL SCREW FDA Start: 03-06-2021 Bunionectomy 3.5 MM XL SCREW FDA Start: 03-06-2021 Bunionectomy 3.5MM HEADESS COMPRESSION SCRW FDA Start: 03-06-2021 Bunionectomy 4.0 MILDRED PT SCREW FDA Start : 03-06-2021 Bunionectomy PLANTAR LAPIDOS PLATE SHORT FDA Start: 03-06-2021 Bunionectomy 3.5 CORTICAL FDA Start: 07-25-2020 Bunionectomy K-WIRE,.062X9 DB L [place] FDA Start: 07-25-2020 Bunionectomy SMALL PLANTAR LA PIDUS PLATE FDA Start: 07-25-2020 Bunionectomy 3.5 LOCKING SCREW FDA Start : 07-25-2020 Bunionectomy 3.5 LOCKING SCREW FDA Start : 07-25-2020 Bunionectomy 3.5 LOCKING SCREW FDA Start : 07-25-2020 Bunionectomy 3.5 LOCKING SCREW FDA Start : 07-25-2020 Bunionectomy 4.0 FT COMP SCREW FDA Start : 07-25-2020 Bunionectomy 4.0 FT COMP SCREW FDA Start : 07-25-2020 Bunionectomy K-WIRE,.045 X 4 DBL [place] FDA Start: 07-25-2020 Bunionectomy K-WIRE,.045 X 4 DBL [place] FDA Start: 07-25-2020 Bunionectomy 3.5 XL SCREW FDA Start: 03-06-2021 Bunionectomy 3.5 MM KL SCREW FDA Start: 03-06-2021 Bunionectomy 3.5 MM KL SCREW FDA Start: 03-06-2021 Bunionectomy 3.5 MM XL SCREW FDA Start: 03-06-2021 Bunionectomy 3.5MM HEADESS COMPRESSION SCRW FDA Start: 03-06-2021 Bunionectomy 4.0 MILDRED PT SCREW FDA Start : 03-06-2021 Bunionectomy PLANTAR LAPIDOS PLATE SHORT FDA Start: 03-06-2021 Bunionectomy 3.5 CORTICAL FDA Start: 07-25-2020 Bunionectomy K-WIRE,.062X9 DB L [place] FDA Start: 07-25-2020 Bunionectomy SMALL PLANTAR LA PIDUS PLATE FDA Start: 07-25-2020 Bunionectomy 3.5 LOCKING SCREW FDA Start : 07-25-2020 Bunionectomy 3.5 LOCKING SCREW FDA Start : 07-25-2020 Bunionectomy 3.5 LOCKING SCREW FDA Start : 07-25-2020 Bunionectomy 3.5 LOCKING SCREW FDA Start : 07-25-2020 Bunionectomy 4.0 FT COMP SCREW FDA Start : 07-25-2020 Bunionectomy 4.0 FT COMP SCREW FDA Start : 07-25-2020 Bunionectomy K-WIRE,.045 X 4 DBL BAYONET FDA Start: 07-25-2020 Bunionectomy K-WIRE,.045 X 4 DBL BAYONET FDA Start: 07-25-2020 Bunionectomy 3.5 XL SCREW FDA Start: 03-06-2021 Bunionectomy 3.5 MM KL SCREW FDA Start: 03-06-2021 Bunionectomy 3.5 MM KL SCREW FDA Start: 03-06-2021 Bunionectomy 3.5 MM XL SCREW FDA Start: 03-06-2021 Bunionectomy 3.5MM HEADESS COMPRESSION SCRW FDA Start: 03-06-2021 Bunionectomy 4.0 MILDRED PT SCREW FDA Start : 03-06-2021 Bunionectomy PLANTAR LAPIDOS PLATE SHORT FDA Start: 03-06-2021 Bunionectomy 3.5 CORTICAL FDA Start: 07-25-2020 Bunionectomy K-WIRE,.062X9 DB L BAYONET TH FDA Start: 07-25-2020 Bunionectomy SMALL PLANTAR LA PIDUS PLATE FDA Start: 07-25-2020 Bunionectomy 3.5 LOCKING SCREW FDA Start : 07-25-2020 Bunionectomy 3.5 LOCKING SCREW FDA Start : 07-25-2020 Bunionectomy 3.5 LOCKING SCREW FDA Start : 07-25-2020 Bunionectomy 3.5 LOCKING SCREW FDA Start : 07-25-2020 Bunionectomy 4.0 FT COMP SCREW FDA Start : 07-25-2020 Bunionectomy 4.0 FT COMP SCREW FDA Start : 07-25-2020 Bunionectomy K-WIRE,.045 X 4 DBL BAYONET FDA Start: 07-25-2020 Bunionectomy K-WIRE,.045 X 4 DBL BAYONET FDA Start: 07-25-2020 Bunionectomy 3.5 XL SCREW FDA Start: 03-06-2021 Bunionectomy 3.5 MM KL SCREW FDA Start: 03-06-2021 Bunionectomy 3.5 MM KL SCREW FDA Start: 03-06-2021 Bunionectomy 3.5 MM XL SCREW FDA Start: 03-06-2021 Bunionectomy 3.5MM HEADESS COMPRESSION SCRW FDA Start: 03-06-2021 Bunionectomy 4.0 MILDRED PT SCREW FDA Start : 03-06-2021 Bunionectomy PLANTAR LAPIDOS PLATE SHORT FDA Start: 03-06-2021 Bunionectomy 3.5 CORTICAL FDA Start: 07-25-2020 Bunionectomy K-WIRE,.062X9 DB L BAYONET FDA Start: 07-25-2020 Bunionectomy SMALL PLANTAR LA PIDUS PLATE FDA Start: 07-25-2020 Bunionectomy 3.5 LOCKING SCREW FDA Start : 07-25-2020 Bunionectomy 3.5 LOCKING SCREW FDA Start : 07-25-2020 Bunionectomy 3.5 LOCKING SCREW FDA Start : 07-25-2020 Bunionectomy 3.5 LOCKING SCREW FDA Start : 07-25-2020 Bunionectomy 4.0 FT COMP SCREW FDA Start : 07-25-2020 Bunionectomy 4.0 FT COMP SCREW FDA Start : 07-25-2020 Bunionectomy K-WIRE,.045 X 4 DBL BAYONET FDA Start: 07-25-2020 Bunionectomy K-WIRE,.045 X 4 DBL BAYONET FDA Start: 07-25-2020 Bunionectomy 3.5 XL SCREW FDA Start: 03-06-2021 Bunionectomy 3.5 MM KL SCREW FDA Start: 03-06-2021 Bunionectomy 3.5 MM KL SCREW FDA Start: 03-06-2021 Bunionectomy 3.5 MM XL SCREW FDA Start: 03-06-2021 Bunionectomy 3.5MM HEADESS COMPRESSION SCRW FDA Start: 03-06-2021 Bunionectomy 4.0 MILDRED PT SCREW FDA Start : 03-06-2021 Bunionectomy PLANTAR LAPIDOS PLATE SHORT FDA Start: 03-06-2021 Bunionectomy 3.5 CORTICAL FDA Start: 07-25-2020 Bunionectomy K-WIRE,.062X9 DB L BAYONET FDA Start: 07-25-2020 Bunionectomy SMALL PLANTAR LA PIDUS PLATE FDA Start: 07-25-2020 Bunionectomy 3.5 LOCKING SCREW FDA Start : 07-25-2020 Bunionectomy 3.5 LOCKING SCREW FDA Start : 07-25-2020 Bunionectomy 3.5 LOCKING SCREW FDA Start : 07-25-2020 Bunionectomy 3.5 LOCKING SCREW FDA Start : 07-25-2020 Bunionectomy 4.0 FT COMP SCREW FDA Start : 07-25-2020 Bunionectomy 4.0 FT COMP SCREW FDA Start : 07-25-2020 Bunionectomy K-WIRE,.045 X 4 DBL BAYONET FDA Start: 07-25-2020 Bunionectomy K-WIRE,.045 X 4 DBL BAYONET FDA Start: 07-25-2020 Bunionectomy 3.5 XL SCREW FDA Start: 03-06-2021 Bunionectomy 3.5 MM KL SCREW FDA Start: 03-06-2021 Bunionectomy 3.5 MM KL SCREW FDA Start: 03-06-2021 Bunionectomy 3.5 MM XL SCREW FDA Start: 03-06-2021 Bunionectomy 3.5MM HEADESS COMPRESSION SCRW FDA Start: 03-06-2021 Bunionectomy 4.0 MILDRED PT SCREW FDA Start : 03-06-2021 Bunionectomy PLANTAR LAPIDOS PLATE SHORT FDA Start: 03-06-2021 Bone resection BONE,CRUSHED CANCELLOUS 15CC FDA Start: 05-11-2024 Bone resection BONE,CRUSHED CANCELLOUS 15CC FDA Start: 05-11-2024 Bone resection BONE,CRUSHED CANCELLOUS 15CC FDA Start: 05-11-2024 Goals Date Patient Goal Desired Activity /State Mental Status Date Assessment Result Facility 09-14-2024 Cognitive function Voice/Name [facility] Work Phone: Clinical Notes 09-04-2021 to 09-14-2024 Note Date & Type Note Facility 09-14-2024 Consult note [facility] 09-14-2024 Consult note Note Date/Time September 14, 2024 1:06pm [facility] Medical Records Department [address] [place] [address] Pre-Anesthesia Evaluation 09/14/24 1306 MR#: [id number] Acct: [id number] Name: RAMANDEEP SNOW Rep #:[id number] : 1980 44 From: Eliceo Ruiz MD PCP: Dr. Winifred Pedro MD Status:REG SDC Y Race: C Location: [place] [address] ASA Classification* ASA Classification ASA Classification: 2 Assessment & Plan Anesthesia* Anesthesia Assessment Anesthesia Assessment: Discussed sedation and/or anesthesia options, risks, benefits, and alternatives with patient/parents/legal guardian/POA. Questions invited. The patient/parents/legal guardian/POA seems to understand and agrees to proceedwith anesthesia plan. Reviewed the physical assessment, medical history, allergy history and patient home medications list prior to surgery/procedure/anesthetic and documented any changes. Performed airway and anesthesia risk assessments. Anesthesia Type Anesthesia Type: MAC Anesthesia Focused Assessment* Airway Assessment Mouth opens: >3 cm Mallampati Score: II Focused Labs Anesthesia Preop lab: CBC WBC 7.1 K/mm3 (4.4-11.0) 04/26/24 08:22 04/26/24 RBC 4.65 M/mm3 (4.2-5.4) 04/26/24 08:22 04/26/24 Hgb 13.7 g/dL (12.0-15.0) 04/26/24 08:22 04/26/24 Hct 42.3 % (37-47) 04/26/24 08:22 04/26/24 Plt Count 300 K/mm3 (150-450) 04/26/24 08:22 04/26/24 CHEMISTRY Potassium 3.5 mmol/L (3.5-5.1) 04/26/24 08:22 04/26/24 Sodium 137 mmol/L (136-145) 04/26/24 08:22 04/26/24 Magnesium 2.2 mg/dL (1.6-2.6) 06/10/22 07:58 06/10/22 Phosphorus 3.2 mg/dL (2.5-4.9) 11/11/23 08:20 11/11/23 BUN 13 mg/dL (7-18) 04/26/24 08:22 04/26/24 Creatinine 0.79 mg/dL (0.55-1.02) 04/26/24 08:22 04/26/24 Glucose 88 mg/dL (74-106) 04/26/24 08:22 04/26/24 TSH 3.190 uIU/mL (0.358-3.740) 04/26/24 08:22 04/07 06/29 COAG PT 13.1 SECONDS (11.7-14.9) 04/10/15 09:17 Tst Clinic Negative 01/22/21 08:43 01/22/21 Pre-Assessment Diagnosis/Proposed Procedure Planned Operative Procedure(s): EGD Anesthesia History Anesthesia History - microchip specialist: Anesthesia History - microchip specialist Hx Hospitalization No 09/10/24 14:06 Any Problems With Anesthesia Yes: NAUSEA 09/10/24 14:06 Cholinesterase deficiency No 09/10/24 14:06 You/Your Family Experience No 09/10/24 14:06 fever (hyperthermia) with Relationship Recent Exposure to Contagious No 08/20/24 10:32 Disease Does patient have nerve No 09/10/24 14:06 stimulator Patient instructed to have device shut off --Does patient have Pacemaker or ICD? When Was Last Pacemaker Check QUESTION #4 FULL TEXT: You/Your Family Experience fever (hyperthermia) with Anesthesia Last Oral Intake Last Oral intake: Last Oral Intake NPO since Meds taken in AM with sips of water? Meds patient instructed to take am of surgery PONV PONV - microchip specialist: PONV - microchip specialist Female Yes 09/10/24 14:06 HX of Motion Sickness No 09/10/24 14:06 HX of N/V After Surgery No 09/10/24 14:06 Non-Smoker Yes 09/10/24 14:06 Duration of Surgery greater No 09/10/24 14:06 than 60 minutes Number of Risk Factors 2 09/10/24 14:06 PONV Score Moderate Risk 09/10/24 14:06 Height & Weight Height & Weight: Anesthesia: Height & Weight Height 5 ft 2 in 08/20/24 10:32 Respiratory Assessment Respiratory Assessment - microchip specialist: Respiratory Tract Infection Hx - microchip specialist Hx Respiratory Tract Infection No 09/10/24 14:06 STOP Sleep Apnea STOP Sleep Apnea - microchip specialist: STOP Sleep Apnea - microchip specialist Hx Hypertension Yes: controlled with med 09/10/24 14:06 Hx Sleep Apnea No 09/10/24 14:06 CPAP No 09/10/24 14:06 BIPAP No 09/10/24 14:06 Do you snore loudly (louder No 09/10/24 14:06 than talking or can be heard Do you often feel tired/ No 09/10/24 14:06 fatigued/ sleepy during daytime? Has anyone observed you stop No 09/10/24 14:06 breathing during sleep? STOP Results Negative 09/10/24 14:06 QUESTION #5 FULL TEXT : Do you snore loudly (louder than talking or can be heard through closed doors)? Tobacco Use History Tobacco Use History - microchip specialist: Tobacco Use History - microchip specialist Tobacco Use Smoking Status Never smoker 09/10/24 14:06 Hx Tobacco Use No 09/10/24 14:06 Years Smoking Packs Smoked per Day Smoking Cessation Date was within the last 15 years Hx Smoking Cessation Date Hx Smoking Cessation Counseling Hematologic Medial History Hematologic Hx - microchip specialist: Hematologic Medical Hx - superintendent system operation Hx of Blood Transfusion No 09/10/24 14:06 Hx of Transfusion in last 3 No 09/10/24 14:06 Months Date of Last Transfusion (if within last 3 months) Ever experience any problems No 09/10/24 14:06 with transfusion(s)? Specify any problems Hx of Preganancy in last 3 No 09/10/24 14:06 Months Nurse Filling Out Transfusion VCHRISTIN 09/10/24 14:06 & Questions: Date: 09/10/24 09/10/24 14:06 Time: 14:07 09/10/24 14:06 Patient unable to answer at this time (ie. confused, unrespo /Reproduction History /Reproductive History - microchip specialist: /Reproductive Hx- microchip specialist Hx Now No 09/10/24 14:06 Gestational Age (in weeks): EDC: Hx Hx Para Hx Section SAB No 09/10/24 14:06 PFSH Medical History Left upper quadrant abdominal pain Depression Alcohol use Low iron DDD (degenerative disc disease), cervical Gastric reflux History of pain when walking Preop exam for internal medicine Hyperlipidemia Screening for thyroid disorder Arthritis Chronic fatigue Wears contact lenses Back pain Restless legs History of IBS Non-smoker Hypertension Preoperative evaluation to rule out surgical contraindication Vitamin D deficiency UTI (urinary tract infection) Preventative health care Insomnia Migraines IBS (irritable bowel syndrome) Hypertension Frequent UTI HSV (herpes simplex virus) infection Condyloma HPV test positive Shingles Constipation Home Medications ?Medication ?Instructions ?Recorded ?Last Taken ?Type ibuprofen 400 mg tablet 400 mg PO Q6H PRN pain #30 t abs 03/06/21 Unknown Rx ferrous sulfate 325 mg (65 mg 325 mg PO Q OTHER DAY Unknown History iron) tablet,delayed release cholecalciferol (vitamin D3) 25 50 mcg PO DAILY Unknown History mcg (1,000 unit) capsule (Vitamin D3) multivitamin 1 tab PO QDAY 04/16/24 Unkno wn History Lactobacillus acidophilus 250 500 mmu cells PO DAILY 1 07/08/23 Unknown History million cell capsule (Probiotic Acidophilus) losartan 100 1 tab PO QDAY #90 tabs 06/11 Unknown Rx mg-hydrochlorothiazide 12.5 mg tablet meloxicam 7.5 mg tablet 7.5 mg PO BID PRN pain 06/11 Unknown History famotidine 20 mg tablet 20 mg PO QDAY #30 tabs 07/13 Unknown Rx pantoprazole 40 mg tablet,delayed 40 mg PO QDAY #90 ta bs 07/13/24 Unknown Rx release linaclotide 145 mcg capsule 145 mcg PO QAM #60 caps Unknown Rx (Linzess) tizanidine 2 mg tablet 2 mg PO Q8H PRN muscle spast icity 08/27/24 Unknown History Allergy/AdvReac Type Severity Reaction Status Date / Time hydromorphone (From Dilaudid) Allergy Rash Verified 09/10/24 14:02 chlorhexidine AdvReac Intermediate rash Verified 09/10/24 14:02 Family History Other Anxiety Arthritis Breast cancer Depression Diabetes Heart disease Hyperlipemia Hypertension Surgical History Hx of foot surgery H/O bilateral salpingectomy Hx of dilation and curettage History of removal of retained hardware History of LAVH History of bunionectomy of both great toes Social History Smoking Status: Never smoker alcohol intake: current alcohol intake frequency: a few times a week Alcohol type: wine details: social substance use type: does not use caffeine: Yes what type of physical activity do you participate in: walking seatbelt use: always do you feel safe at home: Yes additional social history: Inocencio- [employer]. Patient works at [employer] Review of Systems (Anesthesia) ROS Narrative System reviewed and no additional complaints, except as documented. 09/14/24 1306 <Electronically signed by Eliceo Ruiz MD > Date _ Eliceo Ruiz MD Cosigner Signature: Date CC: ~ Signed [facility] Work Phone: [phone] 831-761204-11-2025 Procedure note [facility] Medical Records Department [address] [place] [id number] Operative Report - CC Letter MR#: [id number] Acct: [id number] Name: RAMANDEEP SNOW Rep #:[id number] : 1980 44 From: Srinivas Friend DO PCP: Dr. Winifred Pedro MD Status:REG [facility] 09/14/2024 Winifred Pedro [facility] [address] [place] [id number] Re : Upper GI endoscopy procedure for Ramandeep Snow Dear Dr. Pedro This procedure was performed on Saturday, September 14, 2024. My impressions and recommendations are as follows: Impressions : - LA Grade A reflux esophagitis with no bleeding. Biopsied. - Bilious gastric fluid. - Erythematous mucosa in the gastric body. Biopsied. - Normal examined duodenum. Recommendations : - Discharge patient to home. - Resume previous diet. - Continue present medications. - Await pathology results. My findings are described in the full procedure note, which is enclosed. If I can be of further assistance, please feel free to contact me at . Sincerely, Srinivas Burgos DO 09/14/2024 2:38:41 PM This report has been signed electronically. 09/14/24 1438 Date _ Srinivas Burgos DO Cosigner Signature: Date (if indicated) CC: Dr. Winifred Pedro MD; Srinivas Burgos DO ~ Date Dictated: 09/14/24 1414 Date Transcribed: Armature Coil Winder: RF Signed [facility]04-11-2025 Procedure note [facility] Medical Records Department [address] [place] [address] EGD Report MR#: [id number] Acct: [id number] Name: RAMANDEEP SNOW Rep #:[id number] : 1980 44 From: Srinivas Burgos DO PCP: Dr. Winifred Pedro MD Status:[facility] Patient Name: Ramandeep Snow Procedure Date: 09/14/2024 2:14 PM Date of : 1980 Age: 44 Procedure: Upper GI endoscopy Indications: Heartburn, Suspected esophageal reflux Providers: Srinivas Burgos DO Medicines: Monitored Anesthesia Care Patient Profile: This is a 44 year old female. Refer to note in patient chart for documentation of history and physical. Patient has symptoms of chronic epigastric abdominal pain, chronic heartburn and chronic nausea. Patient has symptoms of chronic heartburn. Complications: No immediate complications. Procedure: Pre-Anesthesia Assessment: - Prior to the procedure, a History and Physical was performed, and patient medications and allergies were reviewed. The patient is competent. The risks and benefits of the procedure and the sedation options and risks were discussed with the patient. All questions were answered and informed consent was obtained. Patient identification and proposed procedure were verified by the physician in the pre-procedure area. Mental Status Examination: alert and oriented. Airway Examination: normal oropharyngeal airway and neck mobility. Respiratory Examination: clear to auscultation. CV Examination: normal. Prophylactic Antibiotics: The patient does not require prophylactic antibiotics. Prior Anticoagulants: The patient has taken no anticoagulant or antiplatelet agents except for NSAID medication. ASA Grade Assessment: II - A patient with mild systemic disease. After reviewing the risks and benefits, the patient was deemed in satisfactory condition to undergo the procedure. The anesthesia plan was to use monitored anesthesia care (MAC). Immediately prior to administration of medications, the patient was re-assessed for adequacy to receive sedatives. The heart rate, respiratory rate, oxygen saturations, blood pressure, adequacy of pulmonary ventilation, and response to care were monitored throughout the procedure. The physical status of the patient was re-assessed after the procedure. After obtaining informed consent, the endoscope was passed under direct vision. Throughout the procedure, the patient's blood pressure, pulse, and oxygen saturations were monitored continuously. The Endoscope was introduced through the mouth, and advanced to the second part of duodenum. The upper GI endoscopy was accomplished without difficulty. The patient tolerated the procedure well. Scope In: 2:24:40 PM Scope Out: 2:27:28 PM Total Procedure Duration Time 0 hours 2 minutes 48 seconds Findings: LA Grade A (one or more mucosal breaks less than 5 mm, not extending between tops of 2 mucosal folds) esophagitis with no bleeding was found 38 to 40 cm from the incisors. Biopsies were taken with a cold forceps for histology. Verification of patient identification for the specimen was done. Estimated blood loss was minimal. Bilious fluid was found in the gastric body. Patchy mildly erythematous mucosa without bleeding was found in the gastric body. Biopsies were taken with a cold forceps for histology. Verification of patient identification for the specimen was done. Estimated blood loss was minimal. Biopsies were taken with a cold forceps for Helicobacter pylori testing. Verification of patient identification for the specimen was done. Estimated blood loss was minimal. The examined duodenum was normal. Impression: - LA Grade A reflux esophagitis with no bleeding. Biopsied. - Bilious gastric fluid. - Erythematous mucosa in the gastric body. Biopsied. - Normal examined duodenum. Recommendation: - Discharge patient to home. - Resume previous diet. - Continue present medications. - Await pathology results. Procedure Code(s): --- Professional --- 81850, Esophagogastroduodenoscopy, flexible, transoral; with biopsy, single or multiple CPT copyright 2021 [employer]. All rights reserved. The codes documented in this report are preliminary and upon physician coder review may be revised to meet current compliance requirements. Srinivas Burgos DO 09/14/2024 2:38:41 PM This report has been signed electronically. Number of Addenda: 0 Note Initiated On: 09/14/2024 2:14 PM 09/14/24 1438 Date _ Srinivas Burgos DO Cosigner Signature: Date (if indicated) CC: Dr. Winifred Pedro MD; Srinivas Burgos DO ~ Date Dictated: 09/14/24 1414 Date Transcribed: Armature Coil Winder: RF Signed [facility]04-11-2025 Consult note [facility] Medical Records Department [address] [place] [address] Anesthesia Postop Eval I 09/14/241436 MR#: [id number] Acct: [id number] Name: RAMANDEEP SNOW Rep #:[id number] : 1980 44 From: Mark Santiago PCP: Dr. Winifred Pedro MD Status:REG [facility] Y Race: C Location: [place] [address] Anesthesia: Postop Eval I Current Vital Signs Temperature: 98 F Pulse Rate: 82 Blood Pressure: 127/88 Respiratory Rate: 16 Pulse Ox: 97 Oxygen Delivery Method: Room Air Assessment Airway patent: Yes Spontaneous unlabored respirations: Yes Mental status: Awake and Calm nausea: No Vomiting: No Anesthesia Complication: No Fluid Hydration Crystalloid volume administer (ml): 30 Total IV fluid infused: 30 Progress Note Anesthesia document: Postop Eval 1 completed: Yes 09/14/241436 > Date _ Mark Malhotra Signature: Date CC: ~ Signed [facility]04-11-[address] [facility] Medical Records Department [address] [place] [address] History & Physical Exam 09/14/24 1409 MR#: [id number] Acct: [id number] Name: RAMANDEEP SNOW Rep #:[id number] : 1980 44 From: Srinivas Burgos DO PCP: Dr. Winifred Pedro MD Status:[facility] Location: [place] [address] HPI - General General Date of Admission: 09/14/24 Date of Service: 09/14/24 HPI Narrative HPI HPI Chief Complaint: constipation Details: RAMANDEEP SNOW, is a 43 F who presents to the office today for establishment with [facility]. Pt has been having issues with constipation for the past 10 years but became worse after her partial hysterectomy. She takes senna and a stool softener dailywhich produces a bm daily in the morning but it does not ever feel complete. Shehas tried miralax and fiber in the past but this has not worked. She feels fatigued and bloated. She has also been struggling with heartburn and LUQ pain. She will wake up coughing and with heartburn at night. She will take esomeprazole occasionally in the evening but has never taken it consistently in the morning. She has never had an EGD but she did have a colonoscopy in 2019 with recommendation for repeat in 10 years. [facility] Medical History Left upper quadrant abdominal pain Depression Alcohol use Low iron DDD (degenerative disc disease), cervical Gastric reflux History of pain when walking Preop exam for internal medicine Hyperlipidemia Screening for thyroid disorder Arthritis Chronic fatigue Wears contact lenses Back pain Restless legs History of IBS Non-smoker Hypertension Preoperative evaluation to rule out surgical contraindication Vitamin D deficiency UTI (urinary tract infection) Preventative health care Insomnia Migraines IBS (irritable bowel syndrome) Hypertension Frequent UTI HSV (herpes simplex virus) infection Condyloma HPV test positive Shingles Constipation Home Medications ?Medication ?Instructions ?Recorded ?Last Taken ?Type ibuprofen 400 mg tablet 400 mg PO Q6H PRN pain #30 t abs 03/06/21 Unknown Rx ferrous sulfate 325 mg (65 mg 325 mg PO Q OTHER DAY Unknown History iron) tablet,delayed release cholecalciferol (vitamin D3) 25 50 mcg PO DAILY Unknown History mcg (1,000 unit) capsule (Vitamin D3) multivitamin 1 tab PO QDAY 04/16/24 Unkno wn History Lactobacillus acidophilus 250 500 mmu cells PO DAILY 1 07/08/23 Unknown History million cell capsule (Probiotic Acidophilus) losartan 100 1 tab PO QDAY #90 tabs 06/11 Unknown Rx mg-hydrochlorothiazide 12.5 mg tablet meloxicam 7.5 mg tablet 7.5 mg PO BID PRN pain 06/11 Unknown History famotidine 20 mg tablet 20 mg PO QDAY #30 tabs 07/13 Unknown Rx pantoprazole 40 mg tablet,delayed 40 mg PO QDAY #90 ta bs 07/13/24 Unknown Rx release linaclotide 145 mcg capsule 145 mcg PO QAM #60 caps Unknown Rx (Linzess) tizanidine 2 mg tablet 2 mg PO Q8H PRN muscle spast icity 08/27/24 Unknown History Allergy/AdvReac Type Severity Reaction Status Date / Time hydromorphone (From Dilaudid) Allergy Rash Verified 09/14/24 13:24 chlorhexidine AdvReac Intermediate rash Verified 09/14/24 13:24 Family History Other Anxiety Arthritis Breast cancer Depression Diabetes Heart disease Hyperlipemia Hypertension Surgical History Hx of foot surgery H/O bilateral salpingectomy Hx of dilation and curettage History of removal of retained hardware History of LAVH History of bunionectomy of both great toes Social History Smoking Status: Never smoker alcohol intake: current alcohol intake frequency: a few times a week Alcohol type: wine details: social substance use type: does not use caffeine: Yes what type of physical activity do you participate in: walking seatbelt use: always do you feel safe at home: Yes additional social history: In[employer]encio- [employer]. Patient works at [employer] Constitutional Constitutional: Denies fatigue, fever(s), poor appetite, weight gain or weight loss Gastrointestinal Gastrointestinal: Denies belching, bloating, change in bowel habits, change in stool character, chewing difficulty, coffee ground emesis, constipation, cramping, diarrhea, dyspepsia, dysphagia, earlysatiety, excessive flatus, fecalincontinence, heartburn, hematemesis, hematochezia, hemorrhoids, loose stools, melena, nausea, odynophagia, rectal bleeding, tenesmus, vomiting or weight changes Vital Signs Vital Signs Vital Signs: 09/14/24 13:28 09/14/24 13:28 Temperature 97.6 F L Temperature Source Temporal Pulse Rate 67 Respiratory Rate 16 Respiratory Pattern Normal Blood Pressure 145/97 H Blood Pressure Mean 113 Blood Pressure Source Monitor Blood Pressure Position Semi-Fowlers Blood Pressure Location Right Arm Pulse Ox 100 Oxygen Delivery Method Room Air Weight Weight: 151 lb 14.376 oz Body Mass Index (BMI) 28.7 Physical Exam Const alert, oriented x3, no apparent distress and healthy appearing General Appearance: cooperative GI normal to inspection, nondistended, normoactive bowel sounds, soft to palpation,non-tender and non-distended Percussion: normal to percussion Rectal Exam: deferred Assessment & Plan Assessment/Plan (1) Heartburn: PLAN: Assessment and Plan Assessment and Plan (1) Abdominal symptoms: (2) Constipation: Status: Acute Plan: This is a 43 yo female pt here today for evaluation of abd pain, heartburn and constipation. Pt most recently had a colonoscopy in 2019 with normal findings. SHe has had constipation for many years and couple with a normal colonoscopy I believe her symptoms to be form IBS-C. She is currently takingdaily senna. I discouraged use of daily stimulant laxatives. She will try Linzess 72 mcg daily instead. Regarding up epigastric pain and heartburn, she will start fwchnakezqti40 mg daily in the morning and famotidine as needed at night. She will undergo EGD to assess her upper GI tract. -Start Linzess -Start pantoprazole -Famotidine PRN -EGD -f/u after procedure (3) Heartburn: Status: Acute Medications: New pantoprazole 40 mg PO QDAY 90 tabs 1RF famotidine 20 mg PO QDAY 30 tabs 2RF linaclotide (Linzess) 72 mcg PO QAM 60 caps 3RF 09/14/24 1411 Cosigner Signature (if applicable): CC: Dr. Winifred Pedro MD; Srinivas Burgos DO~ Signed [facility]04-11-2025 [facility] Medical Records Department [address] [facility] [place] [address] History Physical Exam 09/14/24 1409 MR#: [id number] Acct: [id number] Name: RAMANDEEP SNOW Rep #: [id number] : 1980 44 From: Srinivas Burgos DO PCP: Dr. Winifred Pedro MD Status:REG [facility] Location: [place] [address] HPI - General General Date of Admission: 09/14/24 Date of Service: 09/14/24 HPI Narrative HPI HPI Chief Complaint: constipation Details: RAMANDEEP SNOW, is a 43 F who presents to the office today for establishment with [facility]. Pt has been having issues with constipation for the past 10 years but became worse after her partial hysterectomy. She takes senna and a stool softener daily which produces a bm daily in the morning but it does not ever feel complete. She has tried miralax and fiber in the past but this has not worked. She feels fatigued and bloated. She has also been struggling with heartburn and LUQ pain. She will wake up coughing and with heartburn at night. She will take esomeprazole occasionally in the evening but has never taken it consistently in the morning. She has never had an EGD but she did have a colonoscopy in 2019 with recommendation for repeat in 10 years. [facility] Medical History Left upper quadrant abdominal pain Depression Alcohol use Low iron DDD (degenerative disc disease), cervical Gastric reflux History of pain when walking Preop exam for internal medicine Hyperlipidemia Screening for thyroid disorder Arthritis Chronic fatigue Wears contact lenses Back pain Restless legs History of IBS Non-smoker Hypertension Preoperative evaluation to rule out surgical contraindication Vitamin D deficiency UTI (urinary tract infection) Preventative health care Insomnia Migraines IBS (irritable bowel syndrome) Hypertension Frequent UTI HSV (herpes simplex virus) infection Condyloma HPV test positive Shingles Constipation Home Medications ???Medication ???Instructions ???Recorded ???Last Taken ???Type ibuprofen 400 mg tablet 400 mg PO Q6H PRN pain #30 tabs Unknown Rx ferrous sulfate 325 mg (65 mg 325 mg PO Q OTHER DAY 08/09/22 Unk nown History iron) tablet,delayed release cholecalciferol (vitamin D3) 25 50 mcg PO DAILY 01/31/23 Unknown H istory mcg (1,000 unit) capsule (Vitamin D3) multivitamin 1 tab PO QDAY 04/16/24 Unknown His tory Lactobacillus acidophilus 250 500 mmu cells PO DAILY 05/07/24 Un known History million cell capsule (Probiotic Acidophilus) losartan 100 1 tab PO QDAY #90 tabs 06/11/24 Un known Rx mg-hydrochlorothiazide 12.5 mg tablet meloxicam 7.5 mg tablet 7.5 mg PO BID PRN pain 06/11/24 Un known History famotidine 20 mg tablet 20 mg PO QDAY #30 tabs 07/13/24 Un known Rx pantoprazole 40 mg tablet,delayed 40 mg PO QDAY #90 tabs 07/13/24 U nknown Rx release linaclotide 145 mcg capsule 145 mcg PO QAM #60 caps 07/31/24 U nknown Rx (Linzess) tizanidine 2 mg tablet 2 mg PO Q8H PRN muscle spasticity 08/27/24 Unknown History Allergy/AdvReac Type Severity Reaction Status Date / Time hydromorphone (From Dilaudid) Allergy Rash Verified 09/14/24 13:24 chlorhexidine AdvReac Intermediate rash Verified 09/14/24 13:24 Family History Other Anxiety Arthritis Breast cancer Depression Diabetes Heart disease Hyperlipemia Hypertension Surgical History Hx of foot surgery H/O bilateral salpingectomy Hx of dilation and curettage History of removal of retained hardware History of [facility] History of bunionectomy of both great toes Social History Smoking Status: Never smoker alcohol intake: current alcohol intake frequency: a few times a week Alcohol type: wine details: social substance use type: does not use caffeine: Yes what type of physical activity do you participate in: walking seatbelt use: always do you feel safe at home: Yes additional social history: Inocencio- [employer] [employer] Mait. Patient works at [employer] Constitutional Constitutional: Denies fatigue, fever(s), poor appetite, weight gain or weight loss Gastrointestinal Gastrointestinal: Denies belching, bloating, change in bowel habits, change in stool character, chewing difficulty, coffee ground emesis, constipation, cramping, diarrhea, dyspepsia, dysphagia, ea rly satiety, excessive flatus, fecal incontinence, heartburn, hematemesis, hematochezia, hemorrhoids, loose stools, melena, nausea, odynophagia, rectal bleeding, tenesmus, vomiting or weight changes Vital Signs Vital Signs Vital Signs: 09/14/24 13:28 09/14/24 13:28 Tempera (more content not included)...[facility]04-11-2025 Consult note [facility] Medical Records Department [address] [place] [address] Pre-Anesthesia Evaluation 09/14/24 1306 MR#: [id number] Acct: [id number] Name: RAMANDEEP SNOW Rep #:[id number] : 1980 44 From: Eliceo Ruiz MD PCP: Dr. Winifred Pedro MD Status:REG SDC Y Race: C Location: [place] [address] ASA Classification* ASA Classification ASA Classification: 2 Assessment & Plan Anesthesia* Anesthesia Assessment Anesthesia Assessment: Discussed sedation and/or anesthesia options, risks, benefits, and alternatives with patient/parents/legal guardian/POA. Questions invited. The patient/parents/legal guardian/POA seems to understand and agrees to proceedwith anesthesia plan. Reviewed the physical assessment, medical history, allergy history and patient home medications list prior to surgery/procedure/anesthetic and documented any changes. Performed airway and anesthesia risk assessments. Anesthesia Type Anesthesia Type: MAC Anesthesia Focused Assessment* Airway Assessment Mouth opens: >3 cm Mallampati Score: II Focused Labs Anesthesia Preop lab: CBC WBC 7.1 K/mm3 (4.4-11.0) 04/26/24 08:22 04/26/24 RBC 4.65 M/mm3 (4.2-5.4) 04/26/24 08:22 04/26/24 Hgb 13.7 g/dL (12.0-15.0) 04/26/24 08:22 04/26/24 Hct 42.3 % (37-47) 04/26/24 08:22 04/26/24 Plt Count 300 K/mm3 (150-450) 04/26/24 08:22 04/26/24 CHEMISTRY Potassium 3.5 mmol/L (3.5-5.1) 04/26/24 08:22 04/26/24 Sodium 137 mmol/L (136-145) 04/26/24 08:22 04/26/24 Magnesium 2.2 mg/dL (1.6-2.6) 06/10/22 07:58 06/10/22 Phosphorus 3.2 mg/dL (2.5-4.9) 11/11/23 08:20 11/11/23 BUN 13 mg/dL (7-18) 04/26/24 08:22 04/26/24 Creatinine 0.79 mg/dL (0.55-1.02) 04/26/24 08:22 04/26/24 Glucose 88 mg/dL (74-106) 04/26/24 08:22 04/26/24 TSH 3.190 uIU/mL (0.358-3.740) 04/26/24 08:22 04/07 06/29 COAG PT 13.1 SECONDS (11.7-14.9) 04/10/15 09:17 Tst Clinic Negative 01/22/21 08:43 01/22/21 Pre-Assessment Diagnosis/Proposed Procedure Planned Operative Procedure(s): EGD Anesthesia History Anesthesia History - microchip specialist: Anesthesia History - microchip specialist Hx Hospitalization No 09/10/24 14:06 Any Problems With Anesthesia Yes: NAUSEA 09/10/24 14:06 Cholinesterase deficiency No 09/10/24 14:06 You/Your Family Experience No 09/10/24 14:06 fever (hyperthermia) with Relationship Recent Exposure to Contagious No 08/20/24 10:32 Disease Does patient have nerve No 09/10/24 14:06 stimulator Patient instructed to have device shut off --Does patient have Pacemaker or ICD? When Was Last Pacemaker Check QUESTION #4 FULL TEXT: You/Your Family Experience fever (hyperthermia) with Anesthesia Last Oral Intake Last Oral intake: Last Oral Intake NPO since Meds taken in AM with sips of water? Meds patient instructed to take am of surgery PONV PONV - microchip specialist: PONV - microchip specialist Female Yes 09/10/24 14:06 HX of Motion Sickness No 09/10/24 14:06 HX of N/V After Surgery No 09/10/24 14:06 Non-Smoker Yes 09/10/24 14:06 Duration of Surgery greater No 09/10/24 14:06 than 60 minutes Number of Risk Factors 2 09/10/24 14:06 PONV Score Moderate Risk 09/10/24 14:06 Height & Weight Height & Weight: Anesthesia: Height & Weight Height 5 ft 2 in 08/20/24 10:32 Respiratory Assessment Respiratory Assessment - microchip specialist: Respiratory Tract Infection Hx - microchip specialist Hx Respiratory Tract Infection No 09/10/24 14:06 STOP Sleep Apnea STOP Sleep Apnea - microchip specialist: STOP Sleep Apnea - microchip specialist Hx Hypertension Yes: controlled with med 09/10/24 14:06 Hx Sleep Apnea No 09/10/24 14:06 CPAP No 09/10/24 14:06 BIPAP No 09/10/24 14:06 Do you snore loudly (louder No 09/10/24 14:06 than talking or can be heard Do you often feel tired/ No 09/10/24 14:06 fatigued/ sleepy during daytime? Has anyone observed you stop No 09/10/24 14:06 breathing during sleep? STOP Results Negative 09/10/24 14:06 QUESTION #5 FULL TEXT : Do you snore loudly (louder than talking or can be heard through closeddoors)? Tobacco Use History Tobacco Use History - microchip specialist: Tobacco Use History - microchip specialist Tobacco Use Smoking Status Never smoker 09/10/24 14:06 Hx Tobacco Use No 09/10/24 14:06 Years Smoking Packs Smoked per Day Smoking Cessation Date was within the last 15 years Hx Smoking Cessation Date Hx Smoking Cessation Counseling Hematologic Medial History Hematologic Hx - microchip specialist: Hematologic Medical Hx - superintendent system operation Hx of Blood Transfusion No 09/10/24 14:06 Hx of Transfusion in last 3 No 09/10/24 14:06 Months Date of Last Transfusion (if within last 3 months) Ever experience any problems No 09/10/24 14:06 with transfusion(s)? Specify any problems Hx of Preganancy in last 3 No 09/10/24 14:06 Months Nurse Filling Out Transfusion VCHRISTIN 09/10/24 14:06 & Questions: Date: 09/10/24 09/10/24 14:06 Time: 14:07 09/10/24 14:06 Patient unable to answer at this time (ie. confused, unrespo /Reproduction History /Reproductive History - microchip specialist: /Reproductive Hx- microchip specialist Hx Now No 09/10/24 14:06 Gestational Age (in weeks): EDC: Hx Hx Para Hx Section SAB No 09/10/24 14:06 PFSH Medical History Left upper quadrant abdominal pain Depression Alcohol use Low iron DDD (degenerative disc disease), cervical Gastric reflux History of pain when walking Preop exam for internal medicine Hyperlipidemia Screening for thyroid disorder Arthritis Chronic fatigue Wears contact lenses Back pain Restless legs History of IBS Non-smoker Hypertension Preoperative evaluation to rule out surgical contraindication Vitamin D deficiency UTI (urinary tract infection) Preventative health care Insomnia Migraines IBS (irritable bowel syndrome) Hypertension Frequent UTI HSV (herpes simplex virus) infection Condyloma HPV test positive Shingles Constipation Home Medications ?Medication ?Instructions ?Recorded ?Last Taken ?Type ibuprofen 400 mg tablet 400 mg PO Q6H PRN pain #30 t abs 03/06/21 Unknown Rx ferrous sulfate 325 mg (65 mg 325 mg PO Q OTHER DAY Unknown History iron) tablet,delayed release cholecalciferol (vitamin D3) 25 50 mcg PO DAILY Unknown History mcg (1,000 unit) capsule (Vitamin D3) multivitamin 1 tab PO QDAY 04/16/24 Unkno wn History Lactobacillus acidophilus 250 500 mmu cells PO DAILY 1 07/08/23 Unknown History million cell capsule (Probiotic Acidophilus) losartan 100 1 tab PO QDAY #90 tabs 06/11 Unknown Rx mg-hydrochlorothiazide 12.5 mg tablet meloxicam 7.5 mg tablet 7.5 mg PO BID PRN pain 06/11 Unknown History famotidine 20 mg tablet 20 mg PO QDAY #30 tabs 07/13 Unknown Rx pantoprazole 40 mg tablet,delayed 40 mg PO QDAY #90 ta bs 07/13/24 Unknown Rx release linaclotide 145 mcg capsule 145 mcg PO QAM #60 caps Unknown Rx (Linzess) tizanidine 2 mg tablet 2 mg PO Q8H PRN muscle spast icity 08/27/24 Unknown History Allergy/AdvReac Type Severity Reaction Status Date / Time hydromorphone (From Dilaudid) Allergy Rash Verified 09/10/24 14:02 chlorhexidine AdvReac Intermediate rash Verified 09/10/24 14:02 Family History Other Anxiety Arthritis Breast cancer Depression Diabetes Heart disease Hyperlipemia Hypertension Surgical History Hx of foot surgery H/O bilateral salpingectomy Hx of dilation and curettage History of removal of retained hardware History of [facility] History of bunionectomy of both great toes Social History Smoking Status: Never smoker alcohol intake: current alcohol intake frequency: a few times a week Alcohol type: wine details: social substance use type: does not use caffeine: Yes what type of physical activity do you participate in: walking seatbelt use: always do you feel safe at home: Yes additional social history: Inocencio- [employer] [employer] [employer] [employer] M[employer]. Patient works at [employer] Review of Systems (Anesthesia) ROS Narrative System reviewed and no additional complaints, except as documented. 09/14/24 1306 > Date _ Eliceo Malhotra Signature: Date CC: ~ Signed [facility]02-07-2025 Evaluation note* Diagnosis Onset Date Resolution Status Admit Date Constipation acute July 7:30am Heartburn acute July 13, 2024 7:30am Abdominal symptoms noneactive 2024 7:30am Bilateral primary osteoarthritis of knee acute August 3:24pm Heartburn acute September 14 1:04pm [facility] Work Phone: 1(811) 388-901202-07-2025 Evaluation note* Diagnosis Onset Date Resolution Status Admit Date Constipation acute July 7:30am Heartburn acute July 13, 2024 7:30am Abdominal symptoms noneactive 2024 7:30am Bilateral primary osteoarthritis of knee acute August 3:24pm Heartburn acute September 14 1:04pm Constipation acute October 26 7:31am Heartburn acute October 26, 2024 7:31am [facility] Work Phone: 1(228) 989-946301-06-2025 Evaluation note* Diagnosis Onset Date Resolution Status Admit Date Left upper quadrant abdomina l pain acute June 11 8:02am Anxiety and depression chronic [facility] 2024 8:02am Hypertension chronic June 11, 2024 8:02am Constipation acute July 7:30am Heartburn acute July 13, 2024 7:30am Abdominal symptoms noneactive 2024 7:30am Bilateral primary osteoarthritis of knee acute August 3:24pm Heartburn acute September 14 1:04pm [facility] Work Phone: 1(959) 996-467606-05-2024 NotePatient Outreach (INTMMN) RAMANDEEP SNOW ([id number]) 1980 F Date Time Provider Department 11/09/23 STEW[facility] FREDERICK During your visit today, we recorded the following information about you: Allergies As of Date: 11/09/2023 Noted Allergy Reaction CHLORHEXIDINE 07/24/2019 2 - Rash DILAUDID (HYDROMORPHONE) 01/16/2022 4 - Hives WELLBUTRIN (BUPROPION) 05/26/2022 14 - Other: See Comments Comments: Constipation and dizziness Date Reviewed: 04/27/2022 Reviewed by: Domenica Peña Ma - Fully Assessed Visit Diagnosis:Encounter for screening mammogram for breast cancer [Z12.31] Order(s):[facility] SCREENING [1371503] Order #: [id number] FUTURE Prescriptions as of 11/14/2023 - DULoxetine (CYMBALTA) 20 mg capsule Take [...] once daily. Problem List As Of Date 11/09/2023 Noted Resolved Persistent depressive disorder [F34.1] 07/07/2007 Encounter Status:[facility] 04-27-2022 History of Present illness Narrative* Stewart Frederick MD - 04/27/2022 1:14 PM EST This note was created using NoteWriter. Subjective Ramandeep Snow is a 41 year old female. HISTORY Ramandeep Snow is a 41 year old lady here for follow up. Seen for follow up 01/16/22 after establishedwith Tami 10/06/21. Still with waking up a [...] stool after taking something then 1 BM perweek. has not tried Miralax routinely. (Noted cousin [...] not seem severe enough to need Linzess sinceMiralax can help get bowels moving. Increase PPI [...] Further evaluation and treatment as indicated. Stewart Frederick MD documented in this encounterCenterville11-02-2022 Miscellaneous Notes* Telephone Encounter - Domenica Peña Ma - 04/07/2022 1:18 PM EDT Received 03/29 PSG results from [facility]. Patient has follow-up 04/[address] Frederick. Placed in upcoming appointments file. documented in this encounterCenterville08-13-2022 History of Present illness Narrative* Stewart Frederick MD - 01/16/2022 8:40 AM EDT This note was created using MailTrack.[email or web address]. Subjective Ramandeep Snow is a 41 year [...] daytime fatigue. Went to information talk at [facility] and talked to doctor there. GERD, BRANDEE,RLS [...] treatment as indicated. - POLYSOMNOGRAM (PSG) Stewart Frederick MD documented in this encounterCenterville05-03-2022 History of Present illness Narrative* Tamiaquiles Bucio APRN.[employer] - 10/06/2021 7:14 AM EDT SUBJECTIVE: HEPATITIS C SCREENING Never done HPV [...] seen 2010. Most recently seen by: CASSIA ELLIOTT Plant Control Aide: Dr Lazo ENGLISH TUTOR: Celia Kapadia and Dr Gallego [facility] Recent labwork: August 2021 ER/Hospitalization:no recent Outside records: labs at visit She notes several health concerns. Notes did not seem to be making much progress with previous physician. Would like to establish care here with Dr Frederick. . Notes history of anxiety depression. Previously [...] enough sleep. 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 Notes she is not as active now as she used to be. No current routine exercise. Diet: Tries to eat healthy. She notes chronic constipation for which she takes magnesium and occasionally a constipation remedywhich seems to help. Today notes she has had good results with trazodone, sleeping more and feeling better due to this. Notes she has been working with therapist who advises she has binge eating disorder. Would like referral to eating disorder clinic and treatment with medication. Notes has upcoming appointment with Celia Kapadia ENGLISH TUTOR provider later this month. Review of Systems Constitutional: Positive for fatigue and unexpected weight change. Respiratory: Negative. Cardiovascular: Negative. Gastrointestinal: Positive for constipation. Endocrine: Negative. Psychiatric/Behavioral: Positive for dysphoric mood and sleep disturbance. The patient is nervous/anxious. Objective BP 110/70 Pulse 64 Resp 16 Ht 156.2 cm (5' 1.5) Wt 65.8 kg (145 lb) LMP 01/11/2011 BMI26.95 kg/m Physical Exam Vitals and nursing note [...] 250 mg by mouth. calcium carbonate/vitamin D2 ([id number]-816-D ORAL) Take by mouth. B-complex with vitamin [...] type - ICD9: 780.79, ICD10: R53.83 Labs [facility] August 2021 within normal limits 5. Weight [...] 564.00, ICD10: K59.00 Currently taking magnesium and xues-otv-oroejim T to help with this. Increasing exercise should help. Endorse fiber and sufficient fluid intake MiraLAX if needed, isyl-zit-udwljvf, but can be taken every day if [...] Level: 4 - Moderate documented in this encounterCenterville04-01-2022 History of Present illness Narrative* Tami Bucio APRN.[employer] - 09/04/2021 7:40 AM EDT SUBJECTIVE: HEPATITIS C SCREENING Never done HPV TESTING due on 02/02/2015 PAP TESTING due on 03/04/2015 MAMMOGRAM due on 2018 DTAP,TDAP,TD(3 - Td or Tdap) due on 09/04/2020 SETH Snow is a 41 year old female. PMH significant for ACTIVE PROBLEM LIST Depressive Disorder, Not Elsewhere Classified Former PCP: Dr Dodge, last seen 2010. Most recently seen by: CASSIA ELLIOTT Plant Control Aide: Dr Lazo ENGLISH TUTOR: Celia Kapadia and Dr Gallego [facility] Recent labwork: August 2021 ER/Hospitalization:no recent Outside records: labs at visit She notes several health concerns. Notes did not seem to be making much progress with previous physician. Would like to establish care here with Dr Frederick. . Notes history of anxiety depression. Previously [...] enough sleep. 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 Notes she is not [...] 60 Resp 16 Ht 156.8 cm (5' 1.75) Wt 65.3 kg (144 lb) LMP 01/11/2011 [...] 250 mg by mouth. calcium carbonate/vitamin D2 ([id number]-553-I ORAL), Take by mouth. B-complex with vitamin [...] therapy. Interested in counseling. Agreeable to social professionals calling for follow-up. Recommend trial of trazodone to see if this works, stop taking and let us know if any problems. She notes trouble currently also with falling and staying asleep. Notes significant stress at work, [facility] - CONSULT TO [facility] [...] 564.00, ICD10: K59.00 Currently taking magnesium and ueym-yyc-gzvpjho T to help with this. Increasing exercise should help. Endorse fiber and sufficient fluid intake MiraLAX if needed, fvoy-uxx-sccojqx, but can be taken every day if needed 10. Vitamin D deficiency - ICD9: 268.9, ICD10: E55.9 Continue with supplemental unchanged, recent level was within normal limits- CHOLECALCIFEROL (VITAMIN D3) 50 MCG (2,000 UNIT) CAPSULE Recent labs completed, August 2021 at [facility] 1 month recheck with me, 6 months follow-up with Dr. Frederick to establish care Tami Bucio APRN.CNS Medical Decision Making: Problems: Moderate: 1+ chronic illnesses with change Data: Unique test(s) ordered: 3+ Risk: Moderate: Drug management Medical Decision Making Level: 4 - Moderate documented in [facility] encounterJ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 Weight Management Consultation OBESITY, PCOS PCOS ROUTINE Reason for Visit Fatigue Encounter for routine gynecological examination Arthritis BMI 32.0-32.9,adult Decreased libido Other obesity Polycystic ovarian syndrome Anxiety and depression Hypertension IBS (irritable bowel syndrome) Fatigue [facility] Work Phone: Consult note Author Mark Santiago [facility] Note Date/Time September 14, 2024 2:3 7pm [facility] Medical Records Department [address] [place] [address] Anesthesia Postop Eval I 09/14/24 1437 MR#: [id number] Acct: [id number] Name: RAMANDEEP SNOW Rep #:[id number] : 1980 44 From: Mark Santiago PCP: Dr. Winifred Pedro MD Status:REG SDC Y Race: C Location: AC AC15-1 Anesthesia: Postop Eval I Current Vital Signs Temperature: 98 F Pulse Rate: 82 Blood Pressure: 127/88 Respiratory Rate: 16 Pulse Ox: 97 Oxygen Delivery Method: Room Air Assessment Airway patent: Yes Spontaneous unlabored respirations: Yes Mental status: Awake and Calm nausea: No Vomiting: No Anesthesia Complication: No Fluid Hydration Crystalloid volume administer (ml): 30 Total IV fluid infused: 30 Progress Note Anesthesia document: Postop Eval 1 completed: Yes 09/14/24 1437 <Electronically signed by Mark Santiago > Date _ Mark Malhotra Signature: Date CC: ~ Signed [facility] Work Phone: Consult note Author Eliceo baldev [facility] Note Date/Time September 14, 2024 3:3 9pm [facility] Medical Records Department [address] [place] [id number] Anesthesia Postop Eval II 09/14/24 1459 MR#: [id number] Acct: [id number] Name: RAMANDEEP SNOW Rep #:[id number] : 1980 44 From: Eliceo Ruiz MD PCP: Dr. Winifred Pedro MD Status:REG [facility] Y Race: C Location: [place] [address] Anesthesia Postop Eval I Sum Postop Eval Completion status Anesthesia document: Postop Eval 1 completed: Yes Anesthesia Postop Eval I Summary Anesthesia Postop Eval I Summary: Anesthesia Postop Eval I: Assessment Summary Airway patent Yes 09/14/24 14:37 [email or web address] Spontaneous unlabored Yes 09/14/24 14:37 [email or web address] respirations Mental status Awake,Calm 09/14/24 14:37 [email or web address] nausea No 09/14/24 14:37 [email or web address] Vomiting No 09/14/24 14:37 [email or web address] Anesthesia Postop Eval I: Fluid Summary Crystalloid volume administer 30 09/14/24 14:37 [email or web address] (ml) Colloids volume administered ( ml) Blood Product volume administered (ml) Total IV fluid infused 30 09/14/24 14:37 [email or web address] Anesthesia Postop Eval I: Summary Notes Anesthesia Complication No 09/14/24 14:37 [email or web address] Anesthesia Complication Comment: Post-operative progress note Anesthesia: Postop Eval II Evaluation Mental status: Awake Pain Level: 0 nausea: No Vomiting: No 09/14/24 1459 <Electronically signed by Eliceo Ruiz MD > Date _ Eliceo Ruiz MD Cosigner Signature: Date CC: ~ Signed [facility] Work Phone: Evaluation note* Diagnosis Anxiety and depression- Primary Dysthymic disorder Fatigue, unspecified type Encounter for screening for HIV Need for hepatitis C screening test Special screening examination for other specified viral diseases Weight gain Abnormal weight gain Encounter for screening mammogram for breast cancer Hypertension, unspecified type Insomnia, unspecified type Constipation, unspecified constipation type Vitamin D deficiency Unspecified vitamin D deficiency [facility] [place] [facility] Diagnosis Binge eating disorder- Primary Anxiety and depression Dysthymic disorder [facility] [place] [facility]* Diagnosis Onset Date Resolution Status Arthritis acute Screening for thyroid disorder acute Chronic fatigue chronic Hypertension chronic [facility] Work Phone: Evaluation note* Diagnosis Binge eating disorder- Primary Anxiety and depression Dysthymic disorder Fatigue, unspecified type documented in this encounter [facility] note* Diagnosis Onset Date Resolution Status Encounter for routine gynecological examination noneactive Back pain acute Segmental and somatic dysfunction of cervical region acute Segmental and somatic dysfunction of lumbar region acute Segmental and somatic dysfunction of pelvic region acute Segmental and somatic dysfunction of thoracic region acute Back pain acute Segmental and somatic dysfunction of cervical region acute Segmental and somatic dysfunction of lumbar region acute Segmental and somatic dysfunction of pelvic region acute Segmental and somatic dysfunction of thoracic region acute [facility] Work Phone: Evaluation note* Diagnosis Hypertension, unspecified type- Primary Vitamin D deficiency Unspecified vitamin D deficiency LPRD (laryngopharyngeal reflux disease) Other diseases of larynx Encounter for long-term current use of medication RLS (restless legs syndrome) Restless legs syndrome (RLS) Daytime sleepiness [facility] [place] [facility]* Diagnosis Onset Date Resolution Status Back pain acute Segmental and somatic dysfunction of cervical region acute Segmental and somatic dysfunction of lumbar region acute Segmental and somatic dysfunction of pelvic region acute Segmental and somatic dysfunction of thoracic region acute Back pain acute Segmental and somatic dysfunction of cervical region acute Segmental and somatic dysfunction of lumbar region acute Segmental and somatic dysfunction of pelvic region acute Segmental and somatic dysfunction of thoracic region acute Back pain acute Segmental and somatic dysfunction of cervical region acute Segmental and somatic dysfunction of lumbar region acute Segmental and somatic dysfunction of pelvic region acute Segmental and somatic dysfunction of thoracic region acute Back pain acute Segmental and somatic dysfunction of cervical region acute Segmental and somatic dysfunction of lumbar region acute Segmental and somatic dysfunction of pelvic region acute Segmental and somatic dysfunction of thoracic region acute Back pain acute Segmental and somatic dysfunction of cervical region acute Segmental and somatic dysfunction of lumbar region acute Segmental and somatic dysfunction of pelvic region acute Segmental and somatic dysfunction of thoracic region acute [facility] Work Phone: Evaluation note* Diagnosis Hypertension, unspecified type- Primary LPRD (laryngopharyngeal reflux disease) Other diseases of larynx Chronic constipation Unspecified constipation Vitamin D deficiency Unspecified vitamin D deficiency Encounter for long-term current use of medication Encounter for immunization Need for other specified prophylactic vaccination against single bacterial disease Persistent depressive disorder [facility] [place] [facility] Diagnosis Onset Date Resolution Status COVID acute Encounter for screening for COVID-19 acute [facility] Work Phone: Evaluation noteNo assessment information available [facility] Work Phone: Evaluation note* Diagnosis Onset Date Resolution Status Fatigue acute Encounter for routine gynecological examination noneactive [facility] Work Phone: Evaluation note* Diagnosis Encounter for screening mammogram for breast cancer [facility] [place] [facility]* Diagnosis Onset Date Resolution Status Fatigue resolved Encounter for routine gynecological examination noneactive Arthritis acute BMI 32.0-32.9,adult acute Decreased libido acute Other obesity acute Polycystic ovarian syndrome acute Anxiety and depression chron ic Hypertension chronic IBS (irritable bowel syndrome) chronic Fatigue resolved [facility] Work Phone: Evaluation note* Diagnosis Onset Date Resolution Status BMI 30.0-30.9,adult acute Decreased libido acute Hyperlipidemia acute Other obesity acute Polycystic ovarian syndrome acute Anxiety and depression chron ic Hypertension chronic IBS (irritable bowel syndrome) chronic Insomnia chronic BMI 28.0-28.9,adult acute Hyperlipidemia acute Other obesity acute Polycystic ovarian syndrome acute Anxiety and depression chron ic Hypertension chronic IBS (irritable bowel syndrome) chronic Insomnia chronic BMI 28.0-28.9,adult acute Encounter for wellness examination in adult acute Hyperlipidemia acute Polycystic ovarian syndrome acute Hypertension chronic IBS (irritable bowel syndrome) chronic Arthritis acute BMI 28.0-28.9,adult acute Decreased libido acute Hyperlipidemia acute Other obesity acute Polycystic ovarian syndrome acute Anxiety and depression chron ic Hypertension chronic IBS (irritable bowel syndrome) chronic Insomnia chronic [facility] Work Phone: Evaluation note* Diagnosis Onset Date Resolution Status Arthritis acute Decreased libido acute Hyperlipidemia acute Other obesity acute Polycystic ovarian syndrome acute Anxiety and depression chron ic Hypertension chronic IBS (irritable bowel syndrome) chronic Insomnia chronic BMI 28.0-28.9,adult resolved Arthritis acute Hyperlipidemia acute Other obesity acute Polycystic ovarian syndrome acute BMI 28.0-28.9,adult resolved BMI 27.0-27.9,adult acute Decreased libido acute Hyperlipidemia acute Other obesity acute Polycystic ovarian syndrome acute Anxiety and depression chron ic Hyperlipidemia acute Low back pain acute Neck pain acute Polycystic ovarian syndrome acute Anxiety and depression chron ic Hypertension chronic [facility] Work Phone: Evaluation note* Diagnosis Encounter for screening mammogram for breast cancer [facility] Author Srinivas Friend [facility] Note Date/Time September 14, 2024 2:[address] [facility] Medical Records Department [address] [place] [address] History & Physical Exam 09/14/24 1409 MR#: [id number] Acct: [id number] Name: FLOAquilesRAMANDEEP MICHAEL Rep #:[id number] 10 : 1980 44 From: Srinivas Burgos DO PCP: Dr. Winifred Pedro MD Status:[facility] Location: [facility]15-1 HPI - General General Date of Admission: 09/14/24 Date of Service: 09/14/24 HPI Narrative HPI HPI Chief Complaint: constipation Details: RAMANDEEP SNOW, is a 43 F who presents to the office today for establishment with [facility]. Pt has been having issues with constipation for the past 10 years but became worse after her partial hysterectomy. She takes senna and a stool softener dailywhich produces a bm daily in the morning but it does not ever feel complete. Shehas tried miralax and fiber in the past but this has not worked. She feels fatigued and bloated. She has also been struggling with heartburn and LUQ pain. She will wake up coughing and with heartburn at night. She will take esomeprazole occasionally in the evening but has never taken it consistently in the morning. She has never had an EGD but she did have a colonoscopy in 2019 with recommendation for repeat in 10 years. [facility] Medical History Left upper quadrant abdominal pain Depression Alcohol use Low iron DDD (degenerative disc disease), cervical Gastric reflux History of pain when walking Preop exam for internal medicine Hyperlipidemia Screening for thyroid disorder Arthritis Chronic fatigue Wears contact lenses Back pain Restless legs History of IBS Non-smoker Hypertension Preoperative evaluation to rule out surgical contraindication Vitamin D deficiency UTI (urinary tract infection) Preventative health care Insomnia Migraines IBS (irritable bowel syndrome) Hypertension Frequent UTI HSV (herpes simplex virus) infection Condyloma HPV test positive Shingles Constipation Home Medications ?Medication ?Instructions ?Recorded ?Last Taken ?Type ibuprofen 400 mg tablet 400 mg PO Q6H PRN pain #30 t abs 03/06/21 Unknown Rx ferrous sulfate 325 mg (65 mg 325 mg PO Q OTHER DAY Unknown History iron) tablet,delayed release cholecalciferol (vitamin D3) 25 50 mcg PO DAILY Unknown History mcg (1,000 unit) capsule (Vitamin D3) multivitamin 1 tab PO QDAY 04/16/24 Unkno wn History Lactobacillus acidophilus 250 500 mmu cells PO DAILY 1 07/08/23 Unknown History million cell capsule (Probiotic Acidophilus) losartan 100 1 tab PO QDAY #90 tabs 06/11 Unknown Rx mg-hydrochlorothiazide 12.5 mg tablet meloxicam 7.5 mg tablet 7.5 mg PO BID PRN pain 06/11 Unknown History famotidine 20 mg tablet 20 mg PO QDAY #30 tabs 07/13 Unknown Rx pantoprazole 40 mg tablet,delayed 40 mg PO QDAY #90 ta bs 07/13/24 Unknown Rx release linaclotide 145 mcg capsule 145 mcg PO QAM #60 caps Unknown Rx (Linzess) tizanidine 2 mg tablet 2 mg PO Q8H PRN muscle spast icity 08/27/24 Unknown History Allergy/AdvReac Type Severity Reaction Status Date / Time hydromorphone (From Dilaudid) Allergy Rash Verified 09/14/24 13:24 chlorhexidine AdvReac Intermediate rash Verified 09/14/24 13:24 Family History Other Anxiety Arthritis Breast cancer Depression Diabetes Heart disease Hyperlipemia Hypertension Surgical History Hx of foot surgery H/O bilateral salpingectomy Hx of dilation and curettage History of removal of retained hardware History of LAVH History of bunionectomy of both great toes Social History Smoking Status: Never smoker alcohol intake: current alcohol intake frequency: a few times a week Alcohol type: wine details: social substance use type: does not use caffeine: Yes what type of physical activity do you participate in: walking seatbelt use: always do you feel safe at home: Yes additional social history: [employer]- [employer]. Patient works at [employer] Constitutional Constitutional: Denies fatigue, fever(s), poor appetite, weight gain or weight loss Gastrointestinal Gastrointestinal: Denies belching, bloating, change in bowel habits, change in stool character, chewing difficulty, coffee ground emesis, constipation, cramping, diarrhea, dyspepsia, dysphagia, early satiety, excessive flatus, fecalincontinence, heartburn, hematemesis, hematochezia, hemorrhoids, loose stools, melena, nausea, odynophagia, rectal bleeding, tenesmus, vomiting or weight changes Vital Signs Vital Signs Vital Signs: 09/14/24 13:28 09/14/24 13:28 Temperature 97.6 F L Temperature Source Temporal Pulse Rate 67 Respiratory Rate 16 Respiratory Pattern Normal Blood Pressure 145/97 H Blood Pressure Mean 113 Blood Pressure Source Monitor Blood Pressure Position Semi-Fowlers Blood Pressure Location Right Arm Pulse Ox 100 Oxygen Delivery Method Room Air Weight Weight: 151 lb 14.376 oz Body Mass Index (BMI) 28.7 Physical Exam Const alert, oriented x3, no apparent distress and healthy appearing General Appearance: cooperative GI normal to inspection, nondistended, normoactive bowel sounds, soft to palpation,non-tender and non-distended Percussion: normal to percussion Rectal Exam: deferred Assessment & Plan Assessment/Plan (1) Heartburn: PLAN: Assessment and Plan Assessment and Plan (1) Abdominal symptoms: (2) Constipation: Status: Acute Plan: This is a 43 yo female pt here today for evaluation of abd pain, heartburn and constipation. Pt most recently had a colonoscopy in 2019 with normal findings. SHe has had constipation for many years and couple with a normal colonoscopy I believe her symptoms to be form IBS-C. She is currently taking daily senna. I discouraged use of daily stimulant laxatives. She will try Linzess 72 mcg daily instead. Regarding up epigastric pain and heartburn, she will start [id number] mg daily in the morning and famotidine as needed at night. She will undergo EGD to assess her upper GI tract. -Start Linzess -Start pantoprazole -Famotidine PRN -EGD -f/u after procedure (3) Heartburn: Status: Acute Medications: New pantoprazole 40 mg PO QDAY 90 tabs 1RF famotidine 20 mg PO QDAY 30 tabs 2RF linaclotide (Linzess) 72 mcg PO QAM 60 caps 3RF 09/14/24 1411 <Electronically signed by Srinivas Burgos DO> Cosigner Signature (if applicable): CC: Dr. Winifred Pedro MD; Srinivas Burgos DO~ Signed [facility] Work Phone: Reason for referral (narrative)* Diagnostic Procedure Only (Routine) - Pending Review Specialty Diagnoses / Procedures Referred By Contnorma t Referred To Contact [facility] Diagnoses Encounter for screening mammogram for breast cancer Procedures VALE SCREENING W SYDNEY SCREENING DIGITAL BREAST TOMOSYNTHESIS BI SCREENING MAMMOGRAPHY BI 2-VIEW BREAST INC Tami Leigh APRN.CNS [address] [place] [address] [facility] [address] [place] [address] Referral ID Status Reason Start Date Expiration Date Visits Requested Visits Authorized [id number] Pending Review Auto-Generat ed Referral 09/04/2021 10/04/2022 1 1 [facility] for referral (narrative)* Diagnostic Procedure Only (Routine) - Pending Review Specialty Diagnoses / Procedures Referred By Soledad tomlinson Referred To Contact [facility] Diagnoses Encounter for screening mammogram for breast cancer Procedures VALE SCREENING SCREENING MAMMOGRAPHY BI 2-VIEW BREAST INC Stewart Farfan MD [address] [place] [address] [facility] [address] [place] [address] Referral ID Status Reason Start Date Expiration Date Visits Requested Visits Authorized [id number] Pending Review Auto-Generat ed Referral 08/11/2022 09/10/2023 1 1 [facility] for referral (narrative)* Diagnostic Procedure Only (Routine) - Pending Review Specialty Diagnoses / Procedures Referred By Soledad tomlinson Referred To Contact [facility] Diagnoses Encounter for screening mammogram for breast cancer Procedures VALE SCREENING SCREENING MAMMOGRAPHY BI 2-VIEW BREAST INC Stewart Farfan MD [address] [place] [address] [facility] [address] [place] [address] Referral ID Status Reason Start Date Expiration Date Visits Requested Visits Authorized [id number] Pending Review Auto-Generat ed Referral 11/09/2023 12/08/2024 1 1 [facility]No reason for referral information [facility] Work Phone: Chief Complaint and Reason for Visit Chief Complaint bp f/u 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 Reason for Visit Arthritis Screening for thyroid disorder Chronic fatigue Hypertension Chief Complaint 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 REEVAL LBP Back pain Reason for Visit Encounter for routin e gynecological examination Back pain Segmental and somatic dysfunction of cervical region Segmental and somatic dysfunction of lumbar region Segmental and somatic dysfunction of pelvic region Segmental and somatic dysfunction of thoracic region Back pain Segmental and somatic dysfunction of cervical region Segmental and somatic dysfunction of lumbar region Segmental and somatic dysfunction of pelvic region Segmental and somatic dysfunction of thoracic region Chief Complaint EORDER- back 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 REEVAL LBP Back pain Back pain Back pain Back pain Reason for Visit Back pain Segmental and somatic dysfunction of cervical region Segmental and somatic dysfunction of lumbar region Segmental and somatic dysfunction of pelvic region Segmental and somatic dysfunction of thoracic region Back pain Segmental and somatic dysfunction of cervical region Segmental and somatic dysfunction of lumbar region Segmental and somatic dysfunction of pelvic region Segmental and somatic dysfunction of thoracic region Back pain Segmental and somatic dysfunction of cervical region Segmental and somatic dysfunction of lumbar region Segmental and somatic dysfunction of pelvic region Segmental and somatic dysfunction of thoracic region Back pain Segmental and somatic dysfunction of cervical region Segmental and somatic dysfunction of lumbar region Segmental and somatic dysfunction of pelvic region Segmental and somatic dysfunction of thoracic region Back pain Segmental and somatic dysfunction of cervical region Segmental and somatic dysfunction of lumbar region Segmental and somatic dysfunction of pelvic region Segmental and somatic dysfunction of thoracic region Chief Complaint COVID SYMPTOMS COVID HYPERTENSION,RLS,DAYTIME SLEEPINESS R FOOT PAIN Reason for Visit COVID Encounter for screening for COVID-19 Chief Complaint HYPERTENSION,RLS,DAY TIME SLEEPINESS R FOOT PAIN Chief Complaint R FOOT PAIN 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 Reason for Visit Fatigue Encounter for routine gynecological examination Chief Complaint 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 Reason for Visit Fatigue Encounter for routine gynecological examination Chief Complaint 1 M FU 1 M FU ESTABLISH CARE 1 M FU INT LABS 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 Reason for Visit BMI 30.0-30.9,adult Decreased libido Hyperlipidemia Other obesity Polycystic ovarian syndrome Anxiety and depression Hypertension IBS (irritable bowel syndrome) Insomnia BMI 28.0-28.9,adult Hyperlipidemia Other obesity Polycystic ovarian syndrome Anxiety and depression Hypertension IBS (irritable bowel syndrome) Insomnia BMI 28.0-28.9,adult Encounter for wellness examination in adult Hyperlipidemia Polycystic ovarian syndrome Hypertension IBS (irritable bowel syndrome) Arthritis BMI 28.0-28.9,adult Decreased libido Hyperlipidemia Other obesity Polycystic ovarian syndrome Anxiety and depression Hypertension IBS (irritable bowel syndrome) Insomnia Chief Complaint 1 M FU INT LABS 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 1 M FU 1 M FU 5 M FU BACK PAIN Reason for Visit Arthritis Decreased libido Hyperlipidemia Other obesity Polycystic ovarian syndrome Anxiety and depression Hypertension IBS (irritable bowel syndrome) Insomnia BMI 28.0-28.9,adult Arthritis Hyperlipidemia Other obesity Polycystic ovarian syndrome BMI 28.0-28.9,adult BMI 27.0-27.9,adult Decreased libido Hyperlipidemia Other obesity Polycystic ovarian syndrome Anxiety and depression Hyperlipidemia Low back pain Neck pain Polycystic ovarian syndrome Anxiety and depression Hypertension Chief Complaint Admit Date BP Follow up June 11, 2024 8: 02am Abdominal complaints July 13, 2024 7:30am CERVICAL DISC DEGENERATION. RX HERE [facility] 2024 4:30pm BILATERAL KNEES August 27, 2024 3:2 4pm Reason for Visit Admit Date Left upper quadrant abdominal pain Janua 2024 8:02am Anxiety and depression June 11, 2024 8:02am Hypertension June 11, 2024 8: 02am Constipation July 13, 2024 7 :30am Heartburn July 13, 2024 7 :30am Abdominal symptoms July 13, 2024 7 :30am Bilateral primary osteoarthritis of knee August 27, 2024 3:24pm Heartburn September 14, 2024 1:0 4pm Chief Complaint Admit Date Abdominal complaints July 13, 2024 7:30am CERVICAL DISC DEGENERATION. RX HERE [facility] 2024 4:30pm BILATERAL KNEES August 27, 2024 3:2 4pm Reason for Visit Admit Date Constipation July 13, 2024 7 :30am Heartburn July 13, 2024 7 :30am Abdominal symptoms July 13, 2024 7 :30am Bilateral primary osteoarthritis of knee August 27, 2024 3:24pm Heartburn September 14, 2024 1:0 4pm Chief Complaint Admit Date Abdominal complaints July 13, 2024 7:30am CERVICAL DISC DEGENERATION. RX HERE [facility] 2024 4:30pm BILATERAL KNEES August 27, 2024 3:2 4pm SCREENING October 25, 2024 7:10a m Test Result October 26, 2024 7:31a m Reason for Visit Admit Date Constipation July 13, 2024 7 :30am Heartburn July 13, 2024 7 :30am Abdominal symptoms July 13, 2024 7 :30am Bilateral primary osteoarthritis of knee August 27, 2024 3:24pm Heartburn September 14, 2024 1:0 4pm Constipation October 26, 2024 7:31a m Heartburn October 26, 2024 7:31a m Family History No Family History Records Found Relationship Condition Age at Onset Recorded Date/T misbah Not Specified Diabetes mellitus Unknown Anxiety Unknown Arthritis Unknown Depression Unknown Cardiac disease Unknown Hyperlipidemia Unknown Malignant neoplasm of breast Unknown Hypertension Unknown Advance Directives No Advanced Directives Records Found Advance Directive Response Recorded Date/ Time Advance Directives No April 3:00pm Living Will No February 27, 2021 11:57am Power of Pet Sitting No February 11:57am Advance Directive Response Recorded Date/ Time Advance Directives No April 2:00pm Living Will No February 27, 2021 10:57am Power of Pet Sitting No February 10:57am Advance Directive Response Recorded Date/ Time Advance Directives No October 18 9:01am Living Will No October 18, 2022 9 :01am Power of Pet Sitting No October 18, 2022 9:01am Advance Directive Response Recorded Date/ Time Advance Directives No October 18 8:01am Living Will No October 18, 2022 8 :01am Power of Pet Sitting No October 18, 2022 8:01am Advance Directive Response Recorded Date/ Time Advance Directives No August 20, 025 10:32am Living Will No September 10, 2024 2:06pm Do you have a Healthcare Power of Pet Sitting? No September 10, 2024 2:06pm Summary Purpose Additional Source Comments Source Comments (unrecognize d section and content) In the event this informatio n is protected by the Federal Confidentiality of Alcohol and Drug Abuse Patient Records regulations: The Federal rules restrict any use of the information to criminally investigate or prosecute any alcohol or drug abuse patient.[place] the event this information is protected by the Federal Confidentiality of Alcohol and Drug Abuse Patient Records regulations: The Federal rules restrict any use of the information to criminally investigate or prosecute any alcohol or drug abuse patient.[place]In the event this information is protected by the Federal Confidentiality of Alcohol and Drug Abuse Patient Records regulations: The Federal rules restrict any use of the information to criminally investigate or prosecute any alcohol or drug abuse patient.[place] the event this information is protected by the Federal Confidentiality of Alcohol and Drug Abuse Patient Records regulations: The Federal rules restrict any use of the information to criminally investigate or prosecute any alcohol or drug abuse patient.[place] the event this information is protected by the Federal Confidentiality of Alcohol and Drug Abuse Patient Records regulations: The Federal rules restrict any use of the information to criminally investigate or prosecute any alcohol or drug abuse patient.[place]ervilleIn the event this information is protected by the Federal Confidentiality of Alcohol and Drug Abuse Patient Records regulations: The Federal rules restrict any use of the information to criminally investigate or prosecute any alcohol or drug abuse patient.[place]ervilleIn the event this information is protected by the Federal Confidentiality of Alcohol and Drug Abuse Patient Records regulations: The Federal rules restrict any use of the information to criminally investigate or prosecute any alcohol or drug abuse patient.[place]ervilleIn the event this information is protected by the Federal Confidentiality of Alcohol and Drug Abuse Patient Records regulations: The Federal rules restrict any use of the information to criminally investigate or prosecute any alcohol or drug abuse patient.[place]ervilleIn the event this information is protected by the Federal Confidentiality of Alcohol and Drug Abuse Patient Records regulations: The Federal rules restrict any use of the information to criminally investigate or prosecute any alcohol or drug abuse patient.[place]ervilleIn the event this information is protected by the Federal Confidentiality of Alcohol and Drug Abuse Patient Records regulations: The Federal rules restrict any use of the information to criminally investigate or prosecute any alcohol or drug abuse patient.[place]ervilleIn the event this information is protected by the Federal Confidentiality of Alcohol and Drug Abuse Patient Records regulations: The Federal rules restrict any use of the information to criminally investigate or prosecute any alcohol or drug abuse patient.[place] Reason for Visit (unrecogniz ed section and content) Reason Comments F/U 6 months Specialty Diagnoses / Procedures Referred By Soledad t Referred To Contact Internal Medicine / INTERNAL MEDICINE Diagnoses 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/employee physical Procedures OFFICE/OUTPATIENT ESTABLISHED LOW MDM 20-29 MIN 4C EST Tami Bucio APRN.[employer] [address] [place] [address] Tami Bucio APRN.[employer] [address] [place] [address] Referral ID Status Reason Start Date Expiration Date V isits Requested Visits Authorized [id number] Authorized 10/06/2021 06/05/2022 10 10 Reason Comments Fatigue Medication Follow-up Reason Comments Establish Care Specialty Diagnoses / Procedures Referred By Contac t Referred To Contact Internal Medicine / INTERNAL MEDICINE Diagnoses to establish Procedures 4C EXCEPTION Self 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, 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[employer] [address] [place] [address] Referral ID Status Reason Start Date Expiration Date Visits Re quested Visits Authorized [id number] Closed 09/04/2021 06/05/2022 1 1 Reason Comments Physical Reason Comments Results 03/29 [facility] Care Teams (unrecognized sec tion and content) Yoker Relationship Specialty Start Date End Date Stewart Frederick MD [address] [place] [address] PCP - General Internal Medicine 09/04/21 Yoker Relationship Specialty Start Date End Date Stewart Frederick MD [address] [place] [id number] PCP - General Internal Medicine 09/04/21 Yoker Relationship Specialty Start Date End Date Stewart Frederick MD [address] [place] [address] PCP - General Internal Medicine 09/04/21 Yoker Relationship Specialty Start Date End Date Stewart Frederick MD [facility] [place] [address] PCP - General Internal Medicine 09/04/21 Yoker Relationship Specialty Start Date End Date Stewart Frederick MD [address] [place] [id number] PCP - General Internal Medicine 09/04/21 Yoker Relationship Specialty Start Date End Date Stewart Frederick MD [address] [place] [id number] PCP - General Internal Medicine 09/04/21 Yoker Relationship Specialty Start Date End Date Stewart Frederick MD [address] [place] [address], [place] [address] PCP - General Internal Medicine 09/04/21 Yoker Relationship Specialty Start Date End Date Stewart Frederick MD [address] [place] [address] PCP - General Internal Medicine 09/04/21 Team Status: Active Member Role Status Dates Dr. Tony Severino MD Family Provider Active Dr. Stewart Frederick MD Primary Care Provider Active Team Status: Inactive Member Role Status Dates Dr. Stewart Frederick MD Primary Care Provider, Referr ing Provider Active DINAH Valente Attending Provider Active Team Status: Inactive Member Role Status Dates Dr. Stewart Frederick MD Primary Care Pr ovider, Attending Provider, Referring Provider Active Team Status: Inactive Member Role Status Dates Dr. Stewart Frederick MD Primary Care Provider Active Dr. Edmund Salazar DPM Attending Provider, Referrin g Provider Active Team Status: Active Member Role Status Dates Dr. Stewart Frederick MD Primary Care Provider Active Dr. Edmund Salazar DPM Attending Provider Active Team Status: Inactive Member Role Status Dates Dr. Stewart Frederick MD Primary Care Provider Active Dr. Edmund Salazar DPM Attending Provider Active Team Status: Inactive Member Role Status Dates Dr. Stewart Frederick MD Primary Care Provider, Referr ing Provider Active Lizzy Riley CNM Attending Provider Active Team Status: Inactive Member Role Status Dates Dr. Stewart Frederick MD Primary Care Provider Active Lizzy Riley CNM Attending Provider, Referring Pr ovider Active Yoker Relationship Specialty Start Date End Date Stewart Frederick MD [address] [place], [place] [id number] PCP - General Internal Medicine 09/04/21 Team Status: Inactive Member Role Status Dates Dr. Stewart Frederick MD Primary Care Provider, Referr ing Provider Active Dr. Hilda Gallego MD Attending Provider Active Team Status: Active Member Role Status Dates Dr. Stewart Frederick MD Primary Care Provider Active Dr. Tian Schmitz MD Attending Provider Active Dr. iHlda Gallego MD Referring Provider Active Team Status: Inactive Member Role Status Dates Dr. Stewart Frederick MD Primary Care Provider Active Dr. Hilda Gallego MD Attending Provider, Referr ing Provider Active Team Status: Active Member Role Status Dates Dr. Tony Severino MD Family Provider Active Dr. Winifred Pedro MD Primary Care Provider Active Team Status: Inactive Member Role Status Dates Dr. Stewart Frederick MD Primary Care Provider Active Dr. Winifred Pedro MD Attending Provider Active Team Status: Inactive Member Role Status Dates Dr. Winifred Pedro MD Primary Care Pro vider, Attending Provider, Referring Provider Active Team Status: Active Member Role Status Dates Dr. Winifred Pedro MD Primary Care Provider Active Health Risk Assessment Attending Provider, Referring P frieda Active Team Status: Inactive Member Role Status Dates Dr. Winifred Pedro MD Primary Care Provider, Attendi ng Provider Active Team Status: Inactive Member Role Status Dates Dr. Stewart Frederick MD Referring Provider Active Dr. Hilda Gallego MD Attending Provider Active Dr. Winifred Pedro MD Primary Care Provider Active Team Status: Inactive Member Role Status Dates Dr. Winifred Pedro MD Primary Care Provider, Referri ng Provider Active Dr. Hilda Gallego MD Attending Provider Active Yoker Relationship Specialty Start Date End Date Stewart Frederick MD [address] [place] [address] PCP - General Internal Medicine 09/04/21 Team Status: Active Member Role Status Dates Dr. Winifred Pedro MD Primary Care Provider Active Team Status: Inactive Member Role Status Dates Dr. Winifred Pedro MD Primary Care Provider Active Start: June 11, 2024 End: June 11, 2024 Dr. Winifred Pedro MD Attending Provider Active Start: June 11, 2024 End: June 11, 2024 Team Status: Inactive Member Role Status Dates Dr. Winifred Pedro MD Primary Care Provider Active Start: July 13, 2024 End: July 13, 2024 Dr. Winifred Pedro MD Referring Provider Active Start: July 13, 2024 End: July 13, 2024 ZEINA Bach Attending Provider Active Start: July 13, 2024 End: July 13, 2024 Team Status: Inactive Member Role Status Dates Dr. Winifred Pedro MD Primary Care Provider Active Start: July 25, 2024 End: July 25, 2024 Dr. Mj Kingsley MD Attending Provider Active Start: July 25, 2024 End: July 25, 2024 Dr. Mj Kingsley MD Referring Provider Active Start: July 25, 2024 End: July 25, 2024 Team Status: Inactive Member Role Status Dates Dr. Winifred Pedro MD Primary Care Provider Active Start: August 27, 2024 End: August 27, 2024 Dr. Winifred Pedro MD Referring Provider Active Start: August 27, 2024 End: August 27, 2024 Dr. Armando Del Rosario DO Attending Provider Active Start: August 27, 2024 End: August 27, 2024 Team Status: Inactive Member Role Status Dates Dr. Winifred Pedro MD Primary Care Provider Active Start: September 14, 2024 End: September 14, 2024 Dr. Winifred Pedro MD Referring Provider Active Start: September 14, 2024 End: September 14, 2024 Dr. Srinivas Burgos DO Attending Provider Active Start: September 14, 2024 End: September 14, 2024 Team Status: Active Member Role Status Dates Dr. Winifred Pedro MD Primary Care Provider Active Start: September 14, 2024 Dr. Winifred Pedro MD Referring Provider Active Start: September 14, 2024 Dr. Srinivas Burgos DO Attending Provider Active Start: September 14, 2024 Dr. Srinivas Burgos DO Other Provider Active St art: September 14, 2024 Team Status: Inactive Member Role Status Dates Dr. Winifred Pedro MD Primary Care Provider Active Start: October 10, 2024 End: October 10, 2024 ZEINA Bach Attending Provider Active Start: October 10, 2024 End: October 10, 2024 ZEINA Bach Referring Provider Active Start: October 10, 2024 End: October 10, 2024 Team Status: Inactive Member Role Status Dates Dr. Winifred Pedro MD Primary Care Provider Active Start: October 25, 2024 End: October 25, 2024 Sangeeta Dia CNM Attending Provider Active S tart: October 25, 2024 End: October 25, 2024 Sangeeta Dia CNM Referring Provider Active S tart: October 25, 2024 End: October 25, 2024 Team Status: Inactive Member Role Status Dates Dr. Winifred Pedro MD Primary Care Provider Active Start: October 26, 2024 End: October 26, 2024 Dr. Winifred Pedro MD Referring Provider Active Start: October 26, 2024 End: October 26, 2024 ZEINA Bach Attending Provider Active Start: October 26, 2024 End: October 26, 2024 INFORMATION SOURCE (unrecogn ized section and content) DATE CREATED AUTHOR 11/14/2023 [facility] DATE CREATED AUTHOR AUTHOR'S ORGANIZ ATION 11/09/2024 [facility] FOR RECORDS PERTAINING TO PATIENTS WHO ARE [...] BE BASED ON THE PRIMARY CLINICAL RECORDS. [facility]. provides no warranty or guarantee of the accuracy or completeness of information in this document.
[2024-11-13 04:07] LABS: Testosterone Free 0.3 pg/mL (0.0-4.2)
== END | disposition home or self-care (01) ==
LOC: LAB 11:56
PROVIDERS: PCP Internal Medicine; Referring Provider Nurse Practitioner Family; Visit Provider Nurse Practitioner Family
DX: E28.2 Polycystic ovarian syndrome (principal); R53.82 Chronic fatigue, unspecified; E78.49 Other hyperlipidemia; E66.89 Other obesity not elsewhere classified; R68.82 Decreased libido
CPT/HCPCS: 36415; 84402

== ENCOUNTER → 2025-04-01 | Outpatient (CLI) | payer OTHER, SELFPAY ==
--- OUTSIDE RECORDS SUMMARY | 2025-04-01 07:31 | XMS RPT_ITS | CCD ---
Author Organization [facility] Care Team Providers Care Sat Tutor Name Role Phone Stewart Frederick MD Primary [...] Care Provider Marley Byrd Referring Provider South BRUNER, Sangeeta Attending Provider South BRUNER, Sangeeta Referring Provider Assessment, Health Risk Attending Provider Unava ilable Assessment, Health Risk Referring Provider Unava ilable Danyel HISTORICAL INTERPRETER-CCindy Attending Provider Fanny DELEON, Stewart Seymour Primary Care Provider Fortunato COMPUTER NETWORK SPECIALIST.PEANUT SHAKER, Tami Unavailable Cipriano COMPUTER NETWORK SPECIALIST.PLASTIC INJECTION MOLD MAKER, Judith Unavailable Willis DELEON, Winifred Ortega Primary Care Provider Willis DELEON, Dr. Vitale Primary Care Provider Willis DELEON, Dr. Vitale Referring Provider Marley Byrd Attending Provider Danyel HISTORICAL INTERPRETER-CCindy Referring Provider Willis DELEON, Dr. Vitale Primary Care Provider Willis DELEON, Dr. Vitale Attending Provider WillisAmaliaen Primary Care Unavailable Marley Evans Referring Unavailable Marley Evans Attending Unavailable Willis, Winifred Primary Care Unavailable Willis, Winifred Consulting Unavailable Wunning, Edmund Referring Unavailable Wunning Edmund Attending Unavailable Willis, Winifred Referring Unavailable Willis, Winifred Primary Care Unavailable Aubrey, Srinivas Attending Unavailable Cindy Montaño Attending Unavailable Cindy Montaño Referring Unavailable Willis, Winifred Primary Care Unavailable KingsleyMj Attending Unavailable Kingsley, Mj Referring Unavailable Willis, Winifred Primary Care Unavailable Willis, Winifred Primary Care Unavailable Willis, Winifred Referring Unavailable Willis, Winifred Attending Unavailable Willis, Winifred Primary Care Unavailable Willis, Winifred Attending Unavailable Willis, Winifred Referring Unavailable Kingsley, Mj Attending Unavailable Willis, Winifred Primary Care Unavailable Willis, Winifred Primary Care Unavailable Willis, Winifred Referring Unavailable Marley Evans Attending Unavailable Willis, Winifred Attending Unavailable Willis, Winifred Primary Care Unavailable Willis, Winifred Primary Care Unavailable Willis, Winifred Referring Unavailable Friend, Srinivas Attending Unavailable Friend, Srinivas Consulting Unavailable Willis, Winifred Primary Care Unavailable Willis, Winifred Referring Unavailable Armando Del Rosario Attending Unavailable Willis, Winifred Primary Care Unavailable Willis, Winifred Referring Unavailable Mj Kingsley Attending Unavailable Willis, Winifred Primary Care Unavailable Willis, Winifred Attending Unavailable Cindy Montaño Attending Unavailable Willis, Winifred Referring Unavailable Willis, Winifred Primary Care Unavailable Assessment, Health Risk Referring Unavaila ble Assessment, Health Risk Attending Unavaila ble Willis, Winifred Primary Care Unavailable Mj Kingsley Referring Unavailable Mj Kingsley Attending Unavailable Willis, Winifred Primary Care Unavailable Willis, Winifred Referring Unavailable Willis, Winifred Primary Care Unavailable Armando Del Rosario Attending Unavailable Willis, Winifred Primary Care Unavailable Ema HISTORICAL INTERPRETER, Colleen Torres Attending Unavailabl e Ema HISTORICAL INTERPRETER, Colleen E Referring Unavailabl e Willis, Winifred Referring Unavailable Willis, Winifred Primary Care Unavailable Marley Evans Attending Unavailable Willis, Winifred Primary Care Unavailable Sangeeta Dia Referring Unavailable Sangeeta Dia Attending Unavailable Willis, Winifred Primary Care Unavailable KingsleyNinaag Referring Unavailable Mj Kingsley Attending Unavailable Allergies Allergy Classification Reported Allergen(s) Allergy Type Date of Onset Reaction(s) Facility (20 sources) Chlorhexidine Drug Allergy 0 Rash [facility] Work Phone: (20 sources) HYDROmorphone Drug Allergy 2 [facility] Work Phone: (4 sources) CHLORAPREP Allergy to substance 2 [facility] Work Phone: (7 sources) Isopropyl Alcohol Drug Allergy 2 [facility] (4 sources) buPROPion Drug Allergy 2 Other: See Comments [facility] Work Phone: (1 source) Chlorhexidine Drug Allergy 5 [facility] (1 source) HYDROmorphone Drug Allergy 5 [facility] (1 source) Isopropyl Alcohol Drug Allergy 5 [facility] Medications Current Medications Medication Drug [...] (DIPROLENE) 0.05 % cream calcium carbonate/vitamin D2 ([id number]-020-U ORAL) (4 sources) End: 10-06-2021 calcium carbonate/vitamin D2 (MQCQOUS-152-R ORAL) Take by mouth. 0 10/06/2021 Discontinued calcium carbonat e/vitamin D2 (HOVRIEV-399-N ORAL) Take by mouth. 0 Active Comment [...] 2:38pm Start: 04-27-2022 [facility] Cholecalciferol, Vitamin D3, 125 mcg (5,000 unit) cap Indications: Vitamin D deficiency Take 1 capsule by mouth once daily. 04/27/2022 Active Start: 09-04-2020 End: 11-26-2020 take [...] DULoxetine 20 mg delayed release oral capsule (5 sources) Serotonin and Norepinephrine Reuptake Inhibitor Start: 2 take 1 capsule by mouth once daily DULoxetine (CYMBALTA) 20 mg capsule Indications: Persistent depressive disorder Take 1 capsule by mouth once daily. 90 capsule 04/28/2022 Active Comment on above: Take 1 capsule by mo uth once daily. famotidine 20 mg oral tablet (12 sources) Histamine-2 Receptor Antagonist Start: 5 take 1 tablet by mouth once daily Famotidine 20 mg tablet Active 20 mg PO daily 30 2 July 13, 2024 1:00am Start: 05-07-2024 End: 05-11-2024 take 1 tablet by mouth at bedtime Famotidine (Acid Foot Roentgenologist (Famotidine)) 20 mg tablet Discontinued 20 mg PO AT BEDTIME May 07, 2024 1:00am May 11, 2024 7:20am hydroCHLOROthiazide 12.5 mg / lisinopril 10 mg oral tablet (20 sources) Thiazide Diuretic, Angiotensin Converting Enzyme Inhibitor Start: 12-10-2024 Lisinopril-Hydrochlorothiazi de 10-12.5 mg tablet Active 1 {tbl} PO daily 90 December 10, 2024 8:38am Start: 03-15-2024 End: 04-16-2024 Lisinopril-Hydrochlorothiazi de 10-12.5 mg tablet Discontinued 1 {tbl} PO daily 90 March 15, 2024 12:00am April 16, 2024 9:42am Start: 02-12-2019 End: 03-15-2024 Lisinopril-Hydrochlorothiazi de 20-25 mg tablet Discontinued 1 {tbl} PO DAILY 90 February 03, 2023 1:27pm March 15, 2024 4:15pm Start: 02-12-2019 End: 02-03-2023 take 1 tablet by mouth once daily Lisinopril-Hydrochlorothiazide Discontin ued 1 TABLET PO DAILY 90 February 16, 2021 8:49am February 03, 2023 12:27pm Comment on above: Take 1 tablet by zulema th once daily. ibuprofen 400 mg oral tablet (20 sources) Nonsteroidal Anti-inflammatory Drug Start: 03-06-2021 take 1 tablet by mouth every six hours as needed for pain Ibuprofen 400 mg tablet Active 400 mg PO EVERY 6 HOURS as needed for pain 30 0 March 06, 2021 12:00am Start: 07-25-2020 End: 09-04-2020 take 1 tablet by mouth every six hours as needed for pain Ibuprofen 400 MG tablet Discontinued 400 mg PO EVERY 6 HOURS NEEDED as needed for Pain Score 1-10 40 0 July 25, 2020 9:45am September 04, 2020 4:03pm Start: 04-16-2015 End: 06-17-2017 take 2 tablets by mouth every six hours Ibuprofen 400 MG tablet Discontinued 800 mg PO EVERY 6 HOURS 40 1 April 17, 2015 8:51am June 17, 2017 5:37pm pain Start: 04-16-2015 End: 06-17-2017 take 800 mg by mouth every six hours Ibuprofen Discontinued 800 MG PO EVERY 6 HOURS 40 April 17, 2015 7:51am June 17, 2017 4:37pm lactobacillus acidophilus 1.5 mg oral capsule (6 sources) Start: 05-07-2024 Lactobacillus Acidophilus (Probiotic Acidophilus) 250 million cell capsule Active 500 NMA PO DAILY May 07, 2024 1:00am levonorgestrel 0.952565 mg/hr intrauterine system (4 sources) Progestin, Progestin-containi ng Intrauterine Device Start: 01-21-2009 End: 10-06-2021 levonorgestrel(MICKI HUGO 20 MCG/24 HR INTRAUTERINE DEVICE) Use as directed. 1 0 01/21/2009 10/06/2021 Discontinued Comment on above: Use as directed. linaclotide 0.29 mg oral capsule (15 sources) Guanylate Cyclase-C Agonist Start: 11-02-2024 take 1 capsule by mouth once daily in the morning Linaclotide (Linzess) 290 mcg capsule Active 290 ug PO EVERY MORNING 60 2 November 02, 2024 12:00am Start: 07-31-2024 End: 12-10-2024 take 1 capsule by mouth once daily in the morning Linaclotide (Linzess) 145 mcg capsule Discontinued 145 ug PO EVERY MORNING 60 2 July 31, 2024 1:00am December 10, 2024 8:06am Start: 07-13-2024 End: 08-27-2024 take 1 capsule by mouth once daily in the morning Linaclotide (Linzess) 72 mcg capsule Discontinued 72 ug PO EVERY MORNING 60 3 July 13, 2024 1:00am August 27, 2024 3:45pm Magnesium (4 sources) End: 10-06-2021 Magnesium 250 mg tab Take 25 0 mg by mouth. 0 10/06/2021 Discontinued Magnesium 250 mg tab Take 250 mg by mouth. 0 Active Comment on above: Take 250 mg by mouth . meloxicam 7.5 mg oral tablet (12 sources) Nonsteroidal Anti-inflammatory Drug Start: 06-11-2024 take 1 tablet by mouth twice daily as needed for pain Meloxicam 7.5 mg tablet Active 7.5 mg PO TWICE A DAY as needed for pain June 11, 2024 1:00am Start: 01-02-2024 End: 04-16-2024 take 1 tablet by mouth once daily Meloxicam 15 mg tablet Discontinued 15 mg PO DAILY 30 0 January 02, 2024 12:00am April 16, 2024 9:27am Do not take in conjunction with another NSAID including ibuprofen. Tylenol okay metFORMIN hydrochloride 500 mg oral tablet (1 source) Biguanide Start: 12-10-2024 take 1 tablet by mouth once daily Metformin 500 mg tablet Active 500 mg PO daily December 10, 2024 12:00am Multivitamin tablet (6 sources) Start: 04-16-2024 Multivitamin t ablet Active 1 {tbl} PO daily April 16, 2024 1:00am Multivitamin,Tx-Iron-M inerals (Complete Multivitamin) tablet (17 sources) Start: 02-12-2019 take 1 tablet by mouth once daily Multivitamin,Tx-Iron -Minerals (Complete Multivitamin) tablet Active 1 TABLET PO DAILY February 12, 2019 10:42am Start: 02-12-2019 End: 01-31-2023 Multivitamin,Tq-Grhm-Pdyxbcu s (Complete Multivitamin) tablet Discontinued 1 {tbl} PO DAILY February 12, 2019 12:00am January 31, 2023 2:50pm Start: 02-12-2019 End: 01-31-2023 take 1 tablet by mouth once daily Multivitamin,Zu-Imrd-Xxawamno (Complete Multivitamin) tablet Discontinued 1 TABLET PO DAILY February 11, 2019 11:00pm January 31, 2023 1:50pm Start: 02-12-2019 End: 01-31-2023 take 1 tablet by mouth once daily Multivitamin,Do-Knsh-Djluaqlv (Complete Multivitamin) tablet Discontinued 1 TABLET PO DAILY February 12, 2019 12:00am January 31, 2023 2:50pm Start: 02-12-2019 take 1 tablet by zulema th once daily Multivitamin,Sm-Twtd-Ohuanvue (Complete Multivitamin) tablet Active 1 TABLET PO DAILY February 11, 2019 11:00pm Start: 02-12-2019 take 1 tablet by zulema th once daily Multivitamin,Aa-Pluc-Hvwucxob (Complete Multivitamin) tablet Active 1 TABLET PO DAILY February 12, 2019 12:00am omeprazole 20 mg delayed release oral capsule (9 sources) Proton Pump Inhibitor Start: 04-27-2022 take [...] pantoprazole 40 mg delayed release oral tablet (9 sources) Proton Pump Inhibitor Start: take 1 tablet by mouth twice daily Pantoprazole 40 mg tablet,delayed release (DR/EC) Active 40 mg PO TWICE A DAY November 02, 2024 12:56pm Start: 07-13-2024 End: 11-02-2024 take 1 tablet by mouth once daily Pantoprazole 40 mg tablet,delayed release (DR/EC) Discontinued 40 mg PO daily 90 July 13, 2024 1:00am November 02, 2024 12:57pm PARoxetine hydrochloride 20 mg oral tablet (1 source) Serotonin Reuptake Inhibitor Start: 01-15-2011 End: 09-04-2021 take 0.5 tablet by mouth once daily paroxetine (PAXIL) 20 mg ORAL tablet Indications: Depressive disorder, not elsewhere classified Take 0.5 tablets by mouth once daily. 30 tablet 1 01/15/2011 09/04/2021 Discontinued Comment on above: Take 0.5 tablets by mouth once daily. potassium gluconate 2.5 meq oral tablet (4 sources) End: 10-06-2021 Potassium 99 mg tab Take by mouth. 0 10/06/2021 Discontinued Comment on above: Take by mouth. tiZANidine 2 mg oral tablet (6 sources) Central alpha-2 Adrenergic Agonist Start: 08-27-2024 take 1 tablet by mouth every eight hours as needed Tizanidine 2 mg tablet Active 2 mg PO Q8H as needed for muscle spasticity August 27, 2024 12:00am ubidecarenone/vitami n E mixed (COQ10 SG 100 ORAL) (4 sources) End: 10-06-2021 ubidecarenone/dixie min E mixed (COQ10 SG 100 ORAL) Take by mouth. 0 10/06/2021 Discontinued ubidecarenone/vi tamin E mixed (COQ10 SG 100 ORAL) Take by mouth. 0 Active Comment on above: Take by mouth. Completed/Discontinued Medications Medication Drug Class(es) Dates Sig (Normalized) Sig (Original) acetaminophen 300 mg / HYDROcodone bitartrate 5 mg oral tablet (6 sources) Opioid Agonist Start: 05-11-2024 End: 06-11-2024 Hydrocodone-Acetami nophen 5-300 mg tablet Discontinued 1 {tbl} PO EVERY 6 HOURS as needed for pain 18 3 0 May 11, 2024 June 11, 2024 9:05am Left foot pain Pain in left foot acetaminophen 325 mg / oxyCODONE hydrochloride 5 mg oral tablet (20 sources) Opioid Agonist Start: 03-06-2021 End: 08-10-2021 Oxycodone-Acetamino phen (Percocet) 5-325 mg tablet Discontinued 1 {tbl} PO EVERY 6 HOURS as needed for pain 20 3 0 March 06, 2021 August 10, 2021 3:01pm Right foot pain Pain in right foot Start: 07-25-2020 End: 07-29-2020 Oxycodone-Acetaminophen 1 TA BLET tablet Discontinued 1 - 2 {tbl} PO EVERY 6 HOURS NEEDED as needed for Pain 30 July 25, 2020 July 28, 2020 1:00am July 29, 2020 1:03am Hallux valgus (acquired), left foot Start: 07-25-2020 End: 07-29-2020 take 1 tablet [...] mg tablet Discontinued 1 {tbl} PO Q8H 14 0 March 06, 2021 12:00am August 10, 2021 3:01pm Start: 07-25-2020 End: 09-04-2020 Amoxicillin-Pot Clavulanate 1 EACH tablet Discontinued 1 NMA PO Q12H 14 0 July 25, 2020 7:00pm September 04, 2020 4:03pm Start: 07-25-2020 End: 09-04-2020 Amoxicillin-Pot Clavulanate Discontinued 1 EACH PO Q12H 14 July 25, 2020 6:00pm September 04, 2020 3:03pm azithromycin 250 mg oral tablet (17 sources) Macrolide Antimicrobial Start: 07-24-2019 End: 08-13-2019 take 2-5 tablets by mouth once daily Azithromycin 250 mg tablet Discontinued 0 PO .COMPLEX 6 0 July 24, 2019 1:00am August 13, 2019 2:47pm take 500 mg today (day 1), then 250 mg for 4 days (days 2-5) PO baclofen 5 mg oral tablet (6 sources) gamma-Aminobutyric Acid-ergic Agonist Start: 06-11-2024 End: 08-27-2024 take 1 tablet by mouth three times daily as needed Baclofen 5 mg tablet Discontinued 5 mg PO THREE TIMES A DAY as needed June 11, 2024 1:00am August 27, 2024 3:44pm biotin 1 mg oral capsule (17 sources) Start: 09-04-2020 End: 11-26-2020 take 1 [...] hr Discontinued 150 mg PO EVERY MORNING 90 3 June 12, 2024 12:29pm August 27, 2024 [...] mg PO TWICE A DAY 120 60 2 October 02, 2020 4:32pm November 26, 2020 [...] hydrochloride 8 mg extended release oral tablet (9 sources) Opioid Antagonist, Aminoketone Start: 3 End: 3 Naltrexone-Bupropion (Contrave) 8-90 mg tablet extended release Discontinued 2 {tbl} PO TWICE A DAY 112 28 October 16, 2022 12:00am October 16, 2022 8:03am busPIRone hydrochloride 5 mg oral tablet (20 sources) Start: 1 End: 2 take 1 tablet by mouth twice daily Buspirone 5 mg tablet Discontinued 5 mg PO TWICE A DAY 60 1 February 16, 2021 12:00am August 10, 2021 3:01pm Start: 10-02-2020 End: 11-26-2020 take 7.5 mg by mouth twice daily Buspirone 5 mg tablet Discontinued 7.5 mg PO TWICE A DAY 180 60 1 October 02, 2020 4:31pm November 26, 2020 [...] Discontinued 250 mg PO TWICE A DAY 14 0 January 23, 2024 9:23am April 16, 2024 9:26am Start: 02-16-2021 End: 03-06-2021 take 1 capsule by mouth at bedtime as needed for urinary tract infection Cephalexin 250 mg capsule Discontinued 250 mg PO AT BEDTIME as needed for UTI 90 2 February 16, 2021 9:58am March 06, 2021 7:02am Start: 02-12-2019 End: 02-21-2019 take 1 capsule by mouth twice daily Cephalexin (Keflex) 250 mg capsule Discontinued 250 mg PO TWICE A DAY February 12, 2019 12:00am February 21, 2019 2:06pm clonazePAM 0.5 mg oral tablet (17 sources) Benzodiazepine Start: 07-18-2020 End: 10-02-2020 take 1 tablet by mouth every four hours as needed for anxiety Clonazepam 0.5 MG tablet Discontinued 0.5 mg PO EVERY 4 HOURS NEEDED as needed for Anxiety July 18, 2020 1:00am October 02, 2020 3:42pm Cranberry (17 sources) Non-Standardized Food Allergenic Extract, Non-Standardized Plant [...] 3:01pm cyclobenzaprine hydrochloride 5 mg oral tablet (13 sources) Muscle Relaxant Start: 11-14-2023 End: 01-02-2024 take 0.5-1 tablets by mouth at bedtime as needed for muscle spasms Cyclobenzaprine 5 mg tablet Discontinued 5 mg PO BEDTIME as needed for muscle spasm 30 1 November 14, 2023 8:35am January 02, 2024 8:17am Take 1/2 to 1 tablet at bedtime for muscle spasm as needed. Do not drive while using this medication as it may cause sedation. Start: 06-13-2023 End: 11-14-2023 take 0.5-1 tablets by mouth at bedtime as needed for muscle spasms Cyclobenzaprine 10 mg tablet Discontinued 10 mg PO BEDTIME as needed for muscle spasm 30 0 June 13, 2023 1:00am November 14, 2023 [...] 3:03pm doxycycline hyclate 100 mg oral capsule (17 sources) Tetracycline-class Drug Start: 07-13-2017 End: 04-24-2018 take 1 capsule by mouth twice daily Doxycycline Hyclate 100 mg capsule Discontinued 100 mg PO TWICE A DAY 20 0 July 13, 2017 1:00am April 24, 2018 [...] esomeprazole 20 mg delayed release oral capsule (6 sources) Proton Pump Inhibitor Start: 05-11-2024 End: 08-27-2024 take 1 capsule by mouth once daily Esomeprazole Magnesium (Acid Foot Roentgenologist (Esomeprazole)) 20 mg capsule,delayed release(DR/EC) Discontinued 20 mg PO DAILY May 11, 2024 1:00am August 27, 2024 3:45pm ferrous sulfate 325 mg delayed release oral tablet (16 sources) Start: 08-09-2022 End: 12-10-2024 take 1 tablet by mouth every other day Ferrous Sulfate 325 mg (65 mg iron) tablet,delayed release (DR/EC) Discontinued 325 mg PO every other day August 09, 2022 1:00am December 10, 2024 8:06am ferrous sulfate (FEOSOL) 325 mg (65 mg iron) tablet Take by mouth. Two times weekly Active Comment on above: Take by mouth. Two t imes weekly fluconazole 200 mg oral tablet (6 sources) Azole Antifungal Start: End: take 1 tablet by mouth once daily Fluconazole 200 mg tablet Discontinued 200 mg PO DAILY 2 January 23, 2024 9:23am April 16, 2024 9:26am repeat 2nd dose 24 hours after 1st dose if still symptomatic hydroCHLOROthiazide 12.5 mg / losartan potassium 100 mg oral tablet (12 sources) Thiazide Diuretic, Angiotensin 2 Receptor Donny Start: 025 End: Losartan-Hydrochlor othiazide 100-12.5 mg tablet Discontinued 1 {tbl} PO daily 90 June 11, 2024 1:00am December 10, 2024 8:39am Start: 04-16-2024 End: 06-11-2024 Losartan-Hydrochlorothiazide 50-12.5 mg tablet Discontinued 1 {tbl} PO daily 90 April 16, 2024 1:00am June 11, 2024 9:26am imiquimod 50 mg/ml topical cream (20 sources) Start: 09-04-2020 End: 11-26-2020 Imiquimod 5 % cream in packe t Discontinued 1 NMA TOPICAL TWICE A WEEK as needed September 04, 2020 12:00am November 26, 2020 3:45pm Start: 08-13-2019 End: 09-04-2020 Imiquimod 1 EACH cream in pa cket Discontinued 1 NMA TOPICAL .COMPLEX as needed for skin July 18, 2020 2:56pm September 04, 2020 4:03pm 1 applic topical 3 times per week up to 16 weeks; melatonin 3 mg oral capsule (8 sources) Start: 01-31-2023 End: 06-13-2023 take 1 [...] Discontinued 100 mg PO TWICE A DAY 10 0 October 23, 2018 12:00am February 12, 2019 10:41am must administer with a meal/food Start: 01-18-2018 End: 04-24-2018 take 1 capsule by mouth twice daily at mealtime Nitrofurantoin Monohyd/M-Cryst (Macrobid) 100 mg capsule Discontinued 100 mg PO TWICE A DAY 10 0 January 18, 2018 12:00am April 24, 2018 4:49pm must administer with a meal/food ofloxacin 3 mg/ml otic solution (17 sources) Quinolone Antimicrobial Start: 06-17-2017 End: 06-24-2017 Ofloxacin 0.3 % drops Discontinued 10 NMA OTIC daily 5 7 0 June 17, 2017 1:00am June 23, 2017 1:00am June 24, 2017 1:10am Unspecified otitis externa, right ear oxyCODONE hydrochloride 5 mg oral tablet (17 sources) Opioid Agonist Start: 04-16-2015 End: 04-17-2015 take 2 tablets by mouth every four hours as needed for pain Oxycodone 5 MG tablet Discontinued 10 mg PO EVERY 4 HOURS NEEDED as needed for Abdominal Pain 30 0 April 16, 2015 1:00am April 17, 2015 8:51am Start: 04-16-2015 End: 04-17-2015 take 10 mg by mouth every four hours as needed Oxycodone Discontinued 10 MG PO EVERY 4 HOURS NEEDED April 16, 2015 12:00am April 17, 2015 7:51am phentermine hydrochloride 8 mg oral tablet (20 sources) Sympathomimetic Amine Anorectic Start: 03-31-2023 End: 11-11-2024 Phentermine (Lomaira) 8 mg tablet Discontinued 8 mg PO THREE TIMES A DAY 90 2 November 08, 2023 8:33am April 16, 2024 9:27am must administer 30 minutes before meals/food bmi 28 Start: 01-14-2023 End: 03-31-2023 take 1 tablet by mouth three times daily 30 minutes before mealtime Phentermine (Lomaira) 8 mg tablet Discontinued 8 mg PO THREE TIMES A DAY 90 0 January 14, 2023 12:00am March 31, 2023 5:40pm must administer 30 minutes before meals/food Start: 11-12-2022 End: 01-14-2023 Phentermine (Adipex-P) 37.5 mg tablet Discontinued 18.75 mg PO daily 16 0 December 10, 2022 12:20pm January 14, 2023 10:02am BMI 30 probiotic (8 sources) Start: 01-31-2023 End: 05-07-2024 probiotic Discontinued [...] on above: Take 1 tablet by zulema once daily. topiramate 25 mg oral tablet (8 sources) Start: 12-10-2022 End: 01-31-2023 take 1 tablet by mouth twice daily before breakfast Topiramate (Topamax) 25 mg tablet Discontinued 25 mg PO TWICE A DAY 60 December 10, 2022 12:00am January 31, 2023 2:50pm take before breakfast and before dinner traZODone hydrochloride 50 mg oral tablet (20 sources) Serotonin Reuptake Inhibitor Start: 09-04-2021 End: 08-09-2022 take 1 tablet by mouth once daily Trazodone 50 mg tablet Discontinued 50 mg PO DAILY October 20, 2021 12:00am August 09, 2022 9:37am Comment on above: Take 1 tablet by zulema th daily at bedtime. valACYclovir 500 mg oral tablet (12 sources) Herpesvirus Nucleoside Analog DNA Polymerase Inhibitor, Herpes Simplex Virus Nucleoside Analog DNA Polymerase Inhibitor, Herpes Zoster Virus Nucleoside Analog DNA Polymerase Inhibitor Start: 03-05-2024 End: 03-10-2024 take 1 tablet by mouth twice daily Valacyclovir 500 mg tablet Discontinued 500 mg PO TWICE A DAY 10 5 March 05, 2024 12:00am March 09, 2024 12:00am March 10, 2024 12:13am Start: 11-15-2023 End: 11-20-2023 take 1 tablet by mouth twice daily Valacyclovir 500 mg tablet Discontinued 500 mg PO TWICE A DAY 10 5 November 15, 2023 12:00am November 19, 2023 12:00am November 20, 2023 12:06am 24 hr venlafaxine 37.5 mg extended release oral capsule (12 sources) Serotonin and Norepinephrine Reuptake Inhibitor Start: 11-08-2023 End: 11-14-2023 take 1 capsule by mouth once daily Venlafaxine (Effexor Xr) 37.5 mg capsule,extended release 24hr Discontinued 37.5 mg PO DAILY 7 0 November 08, 2023 12:00am November 14, 2023 8:04am Reduced libido Chronic fatigue Anxiety and depression Insomnia Decreased libido Chronic fatigue, unspecified Anxiety disorder, unspecified Major depressive disorder, single episode, unspecified Insomnia, unspecified Start: 11-08-2023 End: 11-14-2023 take 1 capsule by mouth once daily Venlafaxine (Effexor Xr) 75 mg capsule,extended release 24hr Discontinued 75 mg PO DAILY 60 2 November 08, 2023 12:00am November 14, 2023 8:04am Reduced libido Chronic fatigue Anxiety and depression Decreased libido Chronic fatigue, unspecified Anxiety disorder, unspecified Major depressive disorder, single episode, unspecified Problems Active Problems Problem Classification Problem Date Documented Da te Episodic/Chronic Abdominal pain (7 sources) Left upper quadrant pain; Translations: [Left upper quadrant pain] 06-11-2024 Episodic Anxiety disorders (20 sources) Mixed anxiety and depressive disorder; Translations: [Anxiety disorder, unspecified] Onset: 4 Chronic Coma; stupor; and brain damage (1 source) Daytime somnolence; Translations: [Somnolence] Episodic Disorders of lipid metabolism (17 sources) Hyperlipidemia; Translations: [Hyperlipidemia, unspecified] 10-19-2022 Chronic [...] WNL CONTROLLED WITH MED Headache; including migraine (17 sources) Migraine; Translations: [Migraine, unspecified, not intractable, without status migrainosus] 09-04-2020 Chronic Comment on above: mild. Immunizations and screening for infectious disease (20 sources) Patient encounter status; Translations: [Encounter for screening for human immunodeficiency virus [HIV]] Episodic Malaise and fatigue (19 sources) Fatigue; Translations: [Chronic fatigue, unspecified] Onset: 4 Chronic Malaise and fatigue (17 sources) Fatigue; Translations: [Other fatigue] Episodic Comment on above: fatigue with 40# santhosh ght gain in 18 monthsrequesting hormonal testing Menopausal disorders (10 sources) Menopausal flushing; Translations: [Menopausal and female climacteric states] 11-08-2023 Chronic Miscellaneous mental health disorders (2 sources) Binge eating disorder; Translations: [Binge eating disorder] Chronic Mood disorders (15 sources) Depressive disorder; Translations: [Other specified depressive episodes] Onset: 8 07-07-2007 Chronic Nutritional deficiencies (20 sources) Vitamin D deficiency; Translations: [Vitamin D deficiency, unspecified] Chronic Comment on above: supplementation Nutritional deficiencies (4 sources) Serum iron low; Translations: [Iron deficiency] 11-08-2024 Episodic Comment on above: ON SUPPLEMENT Osteoarthritis (20 sources) Arthritis; Translations: [Unspecified osteoarthritis, unspecified site] Onset: 5 Chronic Comment on above: 5-10% weight reducti [...] thoracic region] Episodic Other connective tissue disease (20 sources) Foot pain; Translations: [Pain in right foot] 03-06-2021 Episodic Other endocrine disorders (9 sources) Polycystic ovary syndrome; Translations: [Polycystic ovarian syndrome] 10-16-2022 Chronic Comment on above: elevated testosteron e. other labs reviewed. Other endocrine disorders (10 sources) Polycystic ovarian syndrome; Translations: [Polycystic ovaries] Onset: 5 10-12-2022 Chronic Other gastrointestinal disorders (17 sources) Irritable bowel syndrome; Translations: [Irritable bowel syndrome without diarrhea] 08-15-2020 Chronic Comment on above: occasional consitpat ion, does well. Other gastrointestinal disorders (7 sources) Irritable bowel syndrome without diarrhea; Translations: [Irritable bowel syndrome] Onset: 4 10-12-2022 Chronic Other gastrointestinal disorders (20 sources) Constipation; Translations: [Constipation, unspecified] Episodic Other gastrointestinal disorders (18 sources) Chronic constipation; Translations: [Other constipation] Episodic Comment on above: likely increased due to anatomical changes in pelvic loffor strength and distribution after hysterectomy. recommend elimination diet, colonoscopy and GI eval. consider naturopathic intervention if normal and/or pelvic floor physical therapy. Other gastrointestinal disorders (20 sources) Heartburn; Translations: [Heartburn] 07-13-2024 Episodic Other gastrointestinal disorders (4 sources) Finding of abdomen; Translations: [Other specified symptoms and signs involving the digestive system and abdomen] 07-13-2024 Episodic Other hereditary and degenerative nervous system conditions (1 source) Restless legs; Translations: [Restless legs syndrome] Chronic Other nervous system disorders (6 sources) Cervical myelopathy; Translations: [Disease of spinal cord, unspecified] 04-16-2024 Chronic Other nervous system disorders (1 source) Disease of spinal cord, unspecified; Translations: [Disease of spinal cord, unspecified] Onset: Chronic Other nutritional; endocrine; and metabolic disorders (9 sources) Obesity; Translations: [Other obesity] 10-16-2022 Chronic Comment on above: Nutrition plan: plan WW. 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 didn't tolerate topamax, discussed contrave- didn't like. trial given. control- hystBehavior intervention: discussed holiday support and habit of exercise at home instead of snackingExercise plan: increase daily steps and NEAT activity, spontaneous exercise at work Other nutritional; endocrine; and metabolic disorders (17 sources) Body mass index 30+ - obesity; [...] Episodic Other nutritional; endocrine; and metabolic disorders (15 sources) Overweight in adulthood with body mass index of 25 or more but less than 30; Translations: [Body mass index (BMI) 28.0-28.9, adult] 02-21-2023 Episodic Comment on above: SW- 06625% with nutr itional and medication intervention recommendations.initial [...] Mass Index 27.0-27.9, adult] 05-13-2023 Episodic Other skin disorders (6 sources) Hypertrichosis; Translations: [Hypertrichosis, unspecified] 04-20-2024 Episodic Other upper respiratory infections (14 sources) Nasopharyngitis; Translations: [Acute nasopharyngitis [common cold]] 02-27-2022 Episodic Residual codes; unclassified (18 sources) Insomnia; Translations: [Insomnia, unspecified] Episodic Comment on above: negative sleep study . Residual codes; unclassified (17 sources) Positive measurement finding; Translations: [Positive test for human papillomavirus (HPV)] 08-15-2020 Episodic Residual codes; unclassified (9 sources) Reduced libido; Translations: [Decreased libido] 10-16-2022 Episodic Comment on above: discussed bupropion may improve, weight loss. Residual codes; unclassified (5 sources) Decreased libido; Translations: [Decreased libido] 10-12-2022 Episodic Residual codes; unclassified (4 sources) Insomnia, unspecified; Translations: [Insomnia, unspecified] 12-10-2022 Episodic Residual codes; unclassified (6 sources) Procedure related finding; Translations: [Encounter for cosmetic surgery] 11-17-2023 Episodic Spondylosis; intervertebral disc disorders; other back problems (13 sources) Degeneration of lumbar intervertebral disc; Translations: [Other intervertebral disc degeneration of lumbar region with discogenic back pain] Onset: 5 04-16-2024 Chronic Sprains and strains (17 sources) Sprain of ankle; Translations: [Sprain of unspecified ligament of right ankle, initial encounter] 12-01-2020 Episodic Unclassified (1 source) Low back pain, unspecified; Translations: [Low back pain, unspecified] Onset: Urinary tract infections (20 sources) Urinary tract infectious disease; Translations: [Urinary tract infection, site not specified] 01-22-2021 Episodic Viral infection (20 sources) Herpes zoster; Translations: [Zoster without complications] Episodic Past or Other Problems Problem Classification Problem Date Documented Da te Episodic/Chronic Other aftercare (1 source) Encounter for removal of internal fixation device; Translations: [Encounter for removal of internal fixation device] Onset: 06-22-2024 Episodic Other gastrointestinal disorders (2 sources) Heartburn; Translations: [Heartburn] Onset: 10-01-2024 Episodic Other gastrointestinal disorders (1 source) Constipation, unspecified; Translations: [Constipation, unspecified] Onset: 10-01-2024 Episodic Other screening for suspected conditions (not mental disorders or infectious disease) (2 sources) Encounter for screening for other suspected endocrine disorder; Translations: [Screening for thyroid disorders] Onset: 11-08-2024 Episodic Other skin disorders (1 source) Hypertrichosis, unspecified; Translations: [Hypertrichosis, unspecified] Onset: 05-08-2024 Episodic Residual codes; unclassified (1 source) Encounter for cosmetic surgery; Translations: [Encounter for cosmetic surgery] Onset: 05-08-2024 Episodic Spondylosis; intervertebral disc disorders; other back problems (20 sources) Cervical radiculopathy; Translations: [Radiculopathy, cervical region] Onset: 04-16-2024 Episodic Unclassified (1 source) Patient encounter status 10-09-2024 Results Test Name Value Interpretation Reference Range Facility Orthopedic Visit Reporton Orthopedic Visit Report [facility] [address] [place] [address] OFFICE VISIT Date of Service: 03/18/25 MR#: [id number] Acct: [id number] Name: GWENDOLYNRAMANDEEP RODRIGUEZ Rep #: [id number] : 1980 Provider: Dr. Armando jaramillo DO Age/Sex: 44/F Location: [facility] Status: Signed Intake Vital Signs 12/10/24 08:08 03/18/25 08:25 Height 5 ft 2 in 5 ft 2 in Weight: 146 lb 8 oz 139 lb BMI 26.8 25.4 BP 122/84 H Blood Pressure Location Lt brachial Position Sitting Respiration 16 Pulse 60 Pulse Source Monitor Temp 98.6 F Temp Source Temporal Pulse Oximetry (%) 96 Oxygen Delivery Method room air Intake Visit Reasons: BILATERAL KNEES Chief Complaint: Bilateral knee injections Accompanied by: Self Is patient in pain?: Yes Pain scale (1-10): 6 Allergies hydromorphone (From Dilaudid) Allergy (Verified 03/18/25 08:30) Rash chlorhexidine Adverse Reaction (Intermediate, Verified 03/18/25 08:30) rash Medications ???Medication ???Instructions ???Recorded ???Confirmed ???Type ibuprofen 400 mg tablet 400 mg PO Q6H PRN pain #30 tabs 03/18/25 Rx cholecalciferol (vitamin D3) 25 50 mcg PO DAILY 01/31/23 03/18/25 History mcg (1,000 unit) capsule (Vitamin D3) multivitamin 1 tab PO QDAY 04/16/24 03/18/25 Hi story Lactobacillus acidophilus 250 500 mmu cells PO DAILY 05/07/24 History million cell capsule (Probiotic Acidophilus) famotidine 20 mg tablet 20 mg PO QDAY #30 tabs 07/13/24 Rx linaclotide 290 mcg capsule 290 mcg PO QAM #60 caps 11/02/24 1 Rx (Linzess) pantoprazole 40 mg tablet,delayed 40 mg PO BID #90 tabs 11/02/24 Rx release lisinopril 10 1 tab PO QDAY #90 tabs 12/10/24 Rx mg-hydrochlorothiazi de 12.5 mg tablet amlodipine 5 mg tablet 5 mg PO QDAY #60 tabs 03/14/25 Rx Have you fallen in the past year?: No PFSH Medical History Left upper quadrant abdominal [...] of removal of retained hardware History of [facility] History of bunionectomy of both great toes [...] at home: Yes additional social history: [employer]- [employer] Pallavi. Patient works at [employer] HPI BILATERAL KNEES Details: This documentation accurately reflects the service provided and the decisions made by me, Dr. Armando Del Rosario, DO 03/18/25 0748. Part of today???s visit was documented by Izabella Dobbs MA, acting as scribe. RAAMNDEEP SNOW is a 44 year old F here today requesting bilateral knee steroid injections. Patient states that her pain is a 7 today. She states that the steroid injections that she had gotten at her last visit has helped.Patient states that the steroid injections jus started to wear off. She states that she wouldl efrain to get a steroid injection in both knees today. 08/27/2024 visit:44 year old F here today for bilateral [...] in 2019 and her knee pain has (more content not included)... Normal [facility] MR/BMS.Sherry 12-10-2024 MR/BMS.NICHOLE [facility] [address] [place] [address] OFFICE VISIT Date of Service: 12/10/24 MR#: [id number] Acct: [id number] Name: RAMANDEEP SNOW Rep #: [id number] : 1980 Provider: Dr. Winifred donaldson MD Age/Sex: 44/F Location: [facility] Status: Signed Intake Vital Signs 06/11/24 08:07 11/08/24 08:06 12/10/24 08:08 Height 5 ft 2 in 5 ft 1 in 5 ft 2 in Weight: 146 lb 8 oz BMI 26.8 BP 122/84 H Blood Pressure Location Lt brachial Position Sitting Respiration 16 Pulse 60 Pulse Source Monitor Temp 98.6 F Temp Source Temporal Pulse Oximetry (%) 96 Oxygen Delivery Method room air Intake Visit Reasons: 6 M FU Chief Complaint: 6 M FU Professional Services Consultant Required: No Accompanied by: Self Is patient in pain?: No Allergies hydromorphone (From Dilaudid) Allergy (Verified 12/10/24 08:03) Rash chlorhexidine Adverse Reaction (Intermediate, Verified 12/10/24 08:03) rash Medications ???Medication ???Instructions ???Recorded ???Confirmed ???Type ibuprofen 400 mg tablet 400 mg PO Q6H PRN pain #30 tabs 12/10/24 Rx cholecalciferol (vitamin D3) 25 50 mcg PO DAILY 01/31/23 12/10/24 History mcg (1,000 unit) capsule (Vitamin D3) multivitamin 1 tab PO QDAY 04/16/24 12/10/24 Hi story Lactobacillus acidophilus 250 500 mmu cells PO DAILY 05/07/24 History million cell capsule (Probiotic Acidophilus) meloxicam 7.5 mg tablet 7.5 mg PO BID PRN pain 06/11/24 History famotidine 20 mg tablet 20 mg PO QDAY #30 tabs 07/13/24 Rx tizanidine 2 mg tablet 2 mg PO Q8H PRN muscle spasticity 08/27/24 12/10/24 History linaclotide 290 mcg capsule 290 mcg PO QAM #60 caps 11/02/24 0 12/10/24 Rx (Linzess) pantoprazole 40 mg tablet,delayed 40 mg PO BID #90 tabs 11/02/24 Rx release lisinopril 10 1 tab PO QDAY #90 tabs 12/10/24 Rx mg-hydrochlorothiazi de 12.5 mg tablet metformin 500 mg tablet 500 mg PO QDAY 12/10/24 12/10/24 H istory [facility] Medical History Left upper quadrant abdominal pain [...] at home: Yes additional social history: [employer]- [employer]. Patient works at [employer] HPI Chief Complaint: 6 M FU Details: RAMANDEEP SNOW, is a 44 F who presents to the office today for 6-month follow-up. 44-year-old female who has a history of mild hypertension, has been on losartan???HCTZ. Previously was on lisinopril???HCTZ which she thinks may have worked somewhat better in terms of blood pressure control. Her home readings are typically mid 130 range over mid 80s. She has lost a little bit of weight since last visit. She did take short-term semaglutide and transition to metformin at this point. Has a history of PCOS. He is issues have been managed through women's health here at [facility]. She is also on Linzess, pantoprazole. When she was having a cough, to which prompted the switch from lisinopril to losartan, she also noted that her reflux was worse but really did not recognize it. She is on a higher dose of pantoprazole right now and the cough has largely gone away but she thinks it may have been the GERD and would like to go back to a trial of lisinopril as she did get better benefit she feels. Aside from that she overall is doing pretty well. Continues to eat a (more content not included)... Normal [facility] Testosterone Freeon 11-14-19 25 TESTOSTER FREE 0.3 pg/mL Normal 0.0-4.2 [facility] Comment on above: Result Comment: Perf ormed at: [facility] - [facility] [address] [id number] Director Of Catering Sales: Nino Otero MD, Phone: [phone] Performed By: #### L 3400.4800 ####[facility] [address] [place], [address] Serum or plasma free testost erone measurement (mass/volume)Ordered By: Cindy Montaño on 11-09-2024 Testosterone Free [Mass/Vol] 0.3 pg/mL 0.0-4.2 [facility] Comment on above: Performed at: [facility] - [facility] [address] [id number] Director: Nino Otero MD, Phone: [phone] Estradiolon 11-08-2024 ESTRADIOL 294.0 pg/mL Normal [facility] Comment on above: Order Comment: ADD [...] onset (transition from Familia stage I to Familia stage II) occurs for girls at a median age of 10.5 (/- 2) years. There is evidence that it may occur up to 1 year earlier in obese girls and in girls. Progression through Familia stages is variable. Familia stage V (adult) should be reached by age 18. Performed By: #### L 503.0106, L506.1001, L3100.5055, L503.6550, L503.6030, L3300.1750 ####[facility] [address] [facility] [address] [place], [place], [address] FSH and LHon 11-08-2024 FSH 18.9 mIU/mL Normal [facility] Comment on above: Order Comment: ADD O N- MG2 3 A OR MG2 5 M Result Comment: FEMA LE: Follicular: 1.4 - 18.1 mIU/mL Midcycle: 3.4 - 33.4 mIU/mL Luteal: 1.5 - 9.1 mIU/mL Post Menopause: 23.0 - 116.3 mIU/mL MALE: 1.4 - 18.1 mIU/mL Performed By: #### L 503.0106, L506.1001, L3100.5055, L503.6550, L503.6030, L3300.1750 ####[facility] [address] [place], [place], [address] LH 17.2 mIU/mL Normal [facility] Comment on above: Order Comment: ADD O N- MG2 3 A OR MG2 5 M Result Comment: FEMA LE: Follicular: 1.9-12.5 mIU/mL Midcycle: 8.7-76.3 mIU/mL Luteal: 0.5-16.9 mIU/mL Post Menopause: 15.9-54.0 mIU/mL MALE: 20-70 Years: 1.5-9.3 mIU/mL >70 Years: 3.1-34.6 mIU/mL Performed By: #### L 503.0106, L506.1001, L3100.5055, L503.6550, L503.6030, L3300.1750 ####[facility] [address] [place], [place], [phone]) Ferritinon 11-08-2024 Ferritin [Mass/Vol] 83 ng/mL Normal 22-378 [facility] Comment on above: Order Comment: ADD O N- MG2 3 A OR MG2 5 M Performed By: #### L 503.0106, L506.1001, L3100.5055, L503.6550, L503.6030, L3300.1750 ####[facility] [address] [place], [place], [id number] Iron+Iron Binding Capacityon 11-08-2024 Iron [Mass/Vol] 104 ug/dL Normal 50-170 [facility] Comment on above: Order Comment: ADD O N- MG2 3 A OR MG2 5 M Performed By: #### L 503.0106, L506.1001, L3100.5055, L503.6550, L503.6030, L3300.1750 ####[facility] [address] [place], [place], [id number] IRON SATURATION 36.0 Normal 13-59 [facility] Comment on above: Order Comment: ADD O N- MG2 3 A OR MG2 5 M Performed By: #### L 503.0106, L506.1001, L3100.5055, L503.6550, L503.6030, L3300.1750 ####[facility] [address] [place], [place], [phone] TIBC 286 ug/dL Normal 250-450 [facility] Comment on above: Order Comment: ADD O N- MG2 3 A OR MG2 5 M Performed By: #### L 503.0106, L506.1001, L3100.5055, L503.6550, L503.6030, L3300.1750 ####[facility] [address] [place], [address] UIBC 182 ug/dL Low 228-428 [facility] Comment on above: Order Comment: ADD O N- MG2 3 A OR MG2 5 M Performed By: #### L 503.0106, L506.1001, L3100.5055, L503.6550, L503.6030, L3300.1750 ####[facility] [address] 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 Patient works at [employer] History 1 Elective abortions Hx Para 0 [...] headache(s) o (more content not included)... Normal [facility] Vitamin B12on 11-08-2024 Cobalamin (Vitamin B12) [Mass/Vol] 599 pg/mL Normal 180-914 [facility] Comment on above: Order Comment: ADD O N- MG2 3 A OR MG2 5 M Performed By: #### L 503.0106, L506.1001, L3100.5055, L503.6550, L503.6030, L3300.5330 ####[facility] [address] [place], [address] Vitamin D,25 Hydroxyon 11-08 Vitamin D 25-OH 49.2 ng/mL Normal 30-100 [facility] Comment on above: Order Comment: ADD O N- MG2 3 A OR MG2 5 M Result Comment: Dixie min D Status Deficiency: <20 ng/mL (50nmol/L) Insufficiency: 20-30 ng/mL (50-75 nmol/L) Sufficiency: 30-100 ng/mL (75-250 nmol/L) Toxicity: >100 ng/mL (>250 nmol/L) Performed By: #### L 503.0106, L506.1001, L3100.5055, L503.6550, L503.6030, L3300.1750 ####[facility] [address] [place], [address] Absolute lymphocyte countOrd ered By: HEALTH ASSESSMENT on 11-05-2024 Lymphocytes Auto (Unsp spec) [#/Vol] 2.29 10*3/uL 0.83-4.51 [facility] Absolute neutrophil countOrd ered By: HEALTH ASSESSMENT on 11-05-2024 Neutrophils (Bld) [#/Vol] 2.5 10*3/uL 2.0-7.7 [facility] Absolute nucleated red blood cell countOrdered By: HEALTH ASSESSMENT on 11-05-2024 Nucleated RBC (Bld) [#/Vol] 0.00 10*3/uL 0-5 [facility] Anion gap in Serum or Plasma Ordered By: HEALTH ASSESSMENT on 11-05-2024 Anion gap [Moles/Vol] 12 mmol/L 5-15 [facility] BUN/creatinine ratioOrdered By: HEALTH ASSESSMENT on 11-05-2024 Urea nitrogen/Creatinine [Mass ratio] 11.7 mg/mg 10-20 [facility] Bilirubin directOrdered By: HEALTH ASSESSMENT on 11-05-2024 Bilirubin.direct [Mass/Vol] 0.17 mg/dL 0.00-0.30 [facility] Bilirubin, totalOrdered By: HEALTH ASSESSMENT on 11-05-2024 Bilirubin [Mass/Vol] 0.41 mg/dL 0.00-1.30 [facility] Blood band neutrophil count as percentage of total leukocytesOrdered By: HEALTH ASSESSMENT on 11-05-2024 Band form neutrophils/100 WBC (Bld) 46.1 % Low 47-70 [facility] CBC, Employeeon 11-05-2024 Absolute Lymph 2.29 X10 3/uL Normal 0.83-4.51 [facility] Comment on above: Performed By: #### L 400.0100, L500.2900, L100.0200 ####[facility] [address] [place], [address] Absolute Neut 2.5 X10 3/uL Normal 2.0-7.7 [facility] Comment on above: Performed By: #### L 400.0100, L500.2900, L100.0200 ####[facility] [address] [place], [address] Basophils/100 WBC (Bld) 1.3 % High 0-1 [facility] Comment on above: Performed By: #### L 400.0100, L500.2900, L100.0200 ####[facility] [address] [place], [address] Eosinophils/100 WBC (Bld) 2.6 % Normal 0-5 [facility] Comment on above: Performed By: #### L 400.0100, L500.2900, L100.0200 ####[facility] [address] [place], [address] Erythrocyte distribution width (RBC) [Ratio] 12.2 % Normal 11.6-14.6 [facility] Comment on above: Performed By: #### L 400.0100, L500.2900, L100.0200 ####[facility] [address] [place], [address] Hematocrit (Bld) [Volume fraction] 39.7 % Normal 37-47 [facility] Comment on above: Performed By: #### L 400.0100, L500.2900, L100.0200 ####[facility] [address] [place], [address] Hemoglobin (Bld) [Mass/Vol] 13.7 g/dL Normal 12.0-15.0 [facility] Comment on above: Performed By: #### L 400.0100, L500.2900, L100.0200 ####[facility] [address] [place], [address] Lymphocytes/100 WBC (Bld) 42.1 % High 19-41 [facility] Comment on above: Performed By: #### L 400.0100, L500.2900, L100.0200 ####[facility] [address] [place], [address] MCH (RBC) [Entitic mass] 31.5 pg Normal 27.0-32.0 [facility] Comment on above: Performed By: #### L 400.0100, L500.2900, L100.0200 ####[facility] [address] [place], [address] MCHC (RBC) [Mass/Vol] 34.5 g/dL Normal 32-36 [facility] Comment on above: Performed By: #### L 400.0100, L500.2900, L100.0200 ####[facility] [address] [place], [address] MCV (RBC) [Entitic vol] 91.3 fL Normal 81-99 [facility] Comment on above: Performed By: #### L 400.0100, L500.2900, L100.0200 ####[facility] [address] [place], [address] Monocytes/100 WBC (Bld) 7.7 % Normal 0-10 [facility] Comment on above: Performed By: #### L 400.0100, L500.2900, L100.0200 ####[facility] [address] [place], [address] Neutrophils/100 WBC (Bld) 46.1 % Low 47-70 [facility] Comment on above: Performed By: #### L 400.0100, L500.2900, L100.0200 ####[facility] [address] [place], [address] NRBC # 0.00 10 3/uL Normal 0-5 [facility] Comment on above: Performed By: #### L 400.0100, L500.2900, L100.0200 ####[facility] [address] [place], [address] Nucleated RBC (Bld) [#/Vol] 0 10*3/uL Normal 0-5 [facility] Comment on above: Performed By: #### L 400.0100, L500.2900, L100.0200 ####[facility] [address] [place], [address] Platelet mean volume (Bld) [Entitic vol] 9.4 fL Normal 6.2-12.0 [facility] Comment on above: Performed By: #### L 400.0100, L500.2900, L100.0200 ####[facility] [address] [place], [address] Platelets (Bld) [#/Vol] 301 10*3/uL Normal 150-450 [facility] Comment on above: Performed By: #### L 400.0100, L500.2900, L100.0200 ####[facility] [address] [place], [address] RBC (Bld) [#/Vol] 4.35 10*6/uL Normal 4.2-5.4 [facility] Comment on above: Performed By: #### L 400.0100, L500.2900, L100.0200 ####[facility] [address] [place], [address] RDW SD 41.1 fl Normal 35.1-43.9 [facility] Comment on above: Performed By: #### L 400.0100, L500.2900, L100.0200 ####[facility] [address] [place], [place], [address] WBC (Bld) [#/Vol] 5.4 10*3/uL Normal 4.4-11.0 [facility] Comment on above: Performed By: #### L 400.0100, L500.2900, L100.0200 ####[facility] [address] [place], [place], [id number] Calculated very low density lipoprotein (VLDL) cholesterol measurementOrdered By: HEALTH ASSESSMENT on 11-05-2024 Calculated very low density lipoprotein (VLDL) cholesterol measurement 15 mg/dL 5-40 [facility] Carbon dioxide, total [Moles /volume] in Central venous bloodOrdered By: HEALTH ASSESSMENT on 11-05-2024 CO2 [Moles/Vol] 22.9 mmol/L 21.0-32.0 [facility] Chloride assayOrdered By: HE ALTH ASSESSMENT on 11-05-2024 Chloride [Moles/Vol] 103 mmol/L 98-108 [facility] Employee Profileon Cholesterol in LDL [Mass/Vol] 116 mg/dL Normal 0-130 [facility] Comment on above: Performed By: #### L 400.0100, L500.2900, L100.0200 ####[facility] [address] [place], [place], [address] Erythrocyte distribution wid th ratioOrdered By: HEALTH ASSESSMENT on 11-05-2024 Erythrocyte distribution width (RBC) [Ratio] 12.2 % 11.6-14.6 [facility] Erythrocyte distribution wid th standard deviationOrdered By: HEALTH ASSESSMENT on 11-05-2024 Erythrocyte distribution width (RBC) [Ratio] 41.1 fl 35.1-43.9 [facility] Glomerular filtration rate ( GFR) estimation/1.73 sq m using serum, plasma, or whole bOrdered By: HEALTH ASSESSMENT on 11-05-2024 GFR/1.73 sq M.predicted among non-blacks MDRD (S/P/Bld) [Vol rate/Area] 88 mL/min/{1.73_m2} >60 [facility] Comment on above: mL/min/1.73m2 CKD-EP I Creatinine Equation (2020) Hematocrit Auto (Bld) [Volum e fraction]Ordered By: HEALTH ASSESSMENT on 11-05-2024 Hematocrit (Bld) [Volume fraction] 39.7 % 37-47 [facility] Hemoglobin measurementOrdere d By: HEALTH ASSESSMENT on 11-05-2024 Hemoglobin (Bld) [Mass/Vol] 13.7 g/dL 12.0-15.0 [facility] Iron measurement (mass/mass) Ordered By: Cindy Montaño on 11-05-2024 Iron (Unsp spec) [Mass/Mass] 104 ug/dL 50-170 [facility] LH ser/plasOrdered By: Rosa Montaño on 11-05-2024 Lutropin Qn 17.2 m[IU]/mL [facility] Comment on above: FEMALE:Follicular: 1 .9-12.5 mIU/mLMidcycle: 8.7-76.3 mIU/mLLuteal: 0.5-16.9 mIU/mLPost Menopause: 15.9-54.0 mIU/mLMALE:20-70 Years: 1.5-9.3 mIU/mL>70 Years: 3.1-34.6 mIU/mL Laboratory - Chemistry and C hemistry - challengeOrdered By: HEALTH ASSESSMENT on 11-05-2024 AST [Catalytic activity/Vol] 19 U/L <32 [facility] Lactate dehydrogenase (LDH) measurementOrdered By: HEALTH ASSESSMENT on 11-05-2024 LDH [Catalytic activity/Vol] 175 U/L 84-246 [facility] MCV (mean corpuscular volume ) determinationOrdered By: HEALTH ASSESSMENT on 11-05-2024 MCV (RBC) [Entitic vol] 91.3 fL 81-99 [facility] Mean corpuscular hemoglobin (MCH) determinationOrdered By: HEALTH ASSESSMENT on 11-05-2024 MCH (RBC) [Entitic mass] 31.5 pg 27.0-32.0 [facility] Mean corpuscular hemoglobin concentration (MCHC) determinationOrdered By: HEALTH ASSESSMENT on 11-05-2024 MCHC (RBC) [Mass/Vol] 34.5 g/dL 32-36 [facility] Mean platelet volume determi nationOrdered By: HEALTH ASSESSMENT on 11-05-2024 Platelet mean volume (Bld) [Entitic vol] 9.4 fL 6.2-12.0 [facility] No Panel InformationOrdered By: Cindy Montaño on 11-05-2024 Unsaturated Iron Binding Capacity 182 ug/dL Low 228-428 [facility] Nucleated red blood cell per centageOrdered By: HEALTH ASSESSMENT on 11-05-2024 Nucleated RBC/100 WBC (Bld) [Ratio] 0 % 0-5 [facility] Platelet countOrdered By: HE ALTH ASSESSMENT on 11-05-2024 Platelets (Bld) [#/Vol] 301 10*3/uL 150-450 [facility] Potassium measurement (mass/ volume)Ordered By: HEALTH ASSESSMENT on 11-05-2024 Potassium (Unsp spec) [Mass/Vol] 3.7 mmol/L 3.3-5.1 [facility] RBC Auto (Bld) [#/Vol]Ordere d By: HEALTH ASSESSMENT on 11-05-2024 RBC (Bld) [#/Vol] 4.35 10*6/uL 4.2-5.4 [facility] Screening total cholesterol/ high density lipoprotein (HDL) cholesterol ratioOrdered By: HEALTH ASSESSMENT on 11-05-2024 Cholesterol.total/Choles terol in HDL [Mass ratio] 3.12 {ratio} [facility] Serum creatinine measurement (mass/volume)Ordered By: HEALTH ASSESSMENT on 11-05-2024 Creatinine [Mass/Vol] 0.83 mg/dL 0.70-1.20 [facility] Serum globulin measurementOr dered By: HEALTH ASSESSMENT on 11-05-2024 Globulin (S) [Mass/Vol] 2.2 g/dL 2.2-4.2 [facility] Serum glucose measurement (m ass/volume)Ordered By: HEALTH ASSESSMENT on 11-05-2024 Glucose [Mass/Vol] 97 mg/dL 70-99 [facility] Serum or plasma alanine arriaga otransferase (ALT) measurementOrdered By: HEALTH ASSESSMENT on 11-05-2024 ALT [Catalytic activity/Vol] 14 U/L <35 [facility] Serum or plasma albumin jessee urement (mass/volume)Ordered By: HEALTH ASSESSMENT on 11-05-2024 Albumin [Mass/Vol] 4.3 g/dL 3.5-5.0 [facility] Serum or plasma albumin/glob ulin mass ratioOrdered By: HEALTH ASSESSMENT on 11-05-2024 Albumin/Globulin [Mass ratio] 2.0 {ratio} 0.9-2.4 [facility] Serum or plasma alkaline rupert sphatase measurementOrdered By: HEALTH ASSESSMENT on 11-05-2024 ALP [Catalytic activity/Vol] 60 U/L 35-104 [facility] Serum or plasma calcium jessee urement (mass/volume)Ordered By: HEALTH ASSESSMENT on 11-05-2024 Calcium [Mass/Vol] 8.9 mg/dL 7.6-11.0 [facility] Serum or plasma cholesterol in HDL measurement (mass/volume)Ordered By: HEALTH ASSESSMENT on 11-05-2024 Cholesterol in HDL [Mass/Vol] 62 mg/dL >40 [facility] Comment on above: National Cholesterol Education Program (NCEP) guidelines:<40 mg/dL: Low HDL-cholesterol (major risk factor for CHD)>= 60 mg/dL: High HDL-cholesterol (negative risk factor for CHD)HDL-cholesterol is affected by a number of factors, e.g. smoking, exercise, hormones, sex and age. Serum or plasma cholesterol in LDL measurement (mass/volume)Ordered By: HEALTH ASSESSMENT on 11-05-2024 Cholesterol in LDL [Mass/Vol] 116 mg/dL 0-130 [facility] Serum or plasma cholesterol measurement (mass/volume)Ordered By: HEALTH ASSESSMENT on 11-05-2024 Cholesterol [Mass/Vol] 193 mg/dL <201 [facility] Comment on above: Cholesterol level, D esirable <200 mg/dLBorderline high cholesterol 200-239 mg/dLHigh cholesterol >=240 mg/dLRecommendations of the NCEP Adult Treatment Panel for the following risk-cutoff thresholds for the [place] population. Serum or plasma estradiol me asurement after follitropin dose (mass/volume)Ordered By: Cindy Montaño on 11-05-2024 E2 post dose follitropin [Mass/Vol] 294.0 pg/mL [facility] Comment on above: FEMALES ADULT FEMALE : Premenopausal: 15-350 pg/mL(E2 levels vary widely through the menstrual cycle) Postmenopausal: <10 pg/mL FAMILIA STAGES MEAN AGE REFERENCE RANGES Stage I(>14 days and prepubertal) 7.1 years Undetectable-20 pg/mLL Stage II 10.5 years Undetectable-24 pg/mL Stage III 11.6 years Undetectable-60 pg/mL Stage IV 12.3 years 15-85 pg/mL Stage V 14.5 years 15-350 pg/mL Puberty onset (transition from Familia stage I to Familia stage II) occurs for girls at a median age of 10.5 (/- 2) years. There is evidence that it may occur up to 1 year earlier in obese girls and in girls.Progression through Familia stages is variable. Familia stage V (adult) should be reached by age 18. Serum or plasma ferritin jim surement (mass/volume)Ordered By: Cindy Montaño on 11-05-2024 Ferritin [Mass/Vol] 83 ng/mL 22-378 [facility] Serum or plasma iron saturat ion measurement (mass fraction)Ordered By: Cindy Montaño on 11-05-2024 Iron saturation [Mass fraction] 36.0 % 13-59 [facility] Serum or plasma urea nitroge n measurement (mass/volume)Ordered By: HEALTH ASSESSMENT on 11-05-2024 Urea nitrogen [Mass/Vol] 10 mg/dL 4-19 [facility] Serum or plasma uric acid me asurement (mass/volume)Ordered By: HEALTH ASSESSMENT on 11-05-2024 Urate [Mass/Vol] 2.7 mg/dL 2.6-6.0 [facility] Comment on above: The drugs N-Acetylcy steine and Metamizole may falsely depress this assay. Sodium levelOrdered By: [facility] ASSESSMENT on 11-05-2024 Sodium [Moles/Vol] 138 mmol/L 133-145 [facility] Total proteinOrdered By: [facility] ASSESSMENT on 11-05-2024 Protein [Mass/Vol] 6.4 g/dL 5.9-8.4 [facility] Triglycerides measurementOrd ered By: HEALTH ASSESSMENT on 11-05-2024 Triglyceride [Mass/Vol] 73 mg/dL <199 [facility] Comment on above: The drugs N-Acetylcy steine and Metamizole may falsely depress this assay. Normal range: <150 mg/dLBorderline High: 150-199 mg/dLHigh: 200-499 mg/dLVery High: >500 mg/dL Urinalysis, Employeeon 11-05 BILIRUBIN URINE Normal Negative [facility] Comment on above: Order Comment: Urine , Random Result Comment: NOT COLLECTED Performed By: #### L 400.0100, L500.2900, L100.0200 ####[facility] [address] [place], [address] Clarity (U) Normal Clear [facility] Comment on above: Order Comment: Urine , Random Result Comment: NOT COLLECTED Performed By: #### L 400.0100, L500.2900, L100.0200 ####[facility] [address] [place], [address] Color (U) Normal Yellow [facility] Comment on above: Order Comment: Urine , Random Result Comment: NOT COLLECTED Performed By: #### L 400.0100, L500.2900, L100.0200 ####[facility] [address] [place], [address] GLUCOSE, UR Normal Normal [facility] Comment on above: Order Comment: Urine , Random Result Comment: NOT COLLECTED Performed By: #### L 400.0100, L500.2900, L100.0200 ####[facility] [address] [place], [address] KETONE UR Normal Negative [facility] Comment on above: Order Comment: Urine , Random Result Comment: NOT COLLECTED Performed By: #### L 400.0100, L500.2900, L100.0200 ####[facility] [address] [place], [address] LEUK ESTERASE Normal Negative [facility] Comment on above: Order Comment: Urine , Random Result Comment: NOT COLLECTED Performed By: #### L 400.0100, L500.2900, L100.0200 ####[facility] [address] [place], [address] Nitrite Ql (U) Normal Negative [facility] Comment on above: Order Comment: Urine , Random Result Comment: NOT COLLECTED Performed By: #### L 400.0100, L500.2900, L100.0200 ####[facility] [address] [place], [address] OCCULT BLOOD-UR Normal Negative [facility] Comment on above: Order Comment: Urine , Random Result Comment: NOT COLLECTED Performed By: #### L 400.0100, L500.2900, L100.0200 ####[facility] [address] [place], [address] pH UR Normal 5.0 - 8.0 [facility] Comment on above: Order Comment: Urine , Random Result Comment: NOT COLLECTED Performed By: #### L 400.0100, L500.2900, L100.0200 ####[facility] [address] [place], [address] PROT DIPSTX Normal Negative [facility] Comment on above: Order Comment: Urine , Random Result Comment: NOT COLLECTED Performed By: #### L 400.0100, L500.2900, L100.0200 ####[facility] [address] [place], [address] SP.GR. DIPSTX Normal 1.002-1.030 [facility] Comment on above: Order Comment: Urine , Random Result Comment: NOT COLLECTED Performed By: #### L 400.0100, L500.2900, L100.0200 ####[facility] [address] [place], [address] UR Preservative Normal [facility] Comment on above: Order Comment: Urine , Random Result Comment: NOT COLLECTED Performed By: #### L 400.0100, L500.2900, L100.0200 ####[facility] [address] [place], [address] UROBILI Normal Normal [facility] Comment on above: Order Comment: Urine , Random Result Comment: NOT COLLECTED Performed By: #### L 400.0100, L500.2900, L100.0200 ####[facility] [address] [place], [address] Vitamin B12 ser/plasOrdered By: Cindy Montaño on 11-05-2024 Cobalamin (Vitamin B12) [Mass/Vol] 599 pg/mL 180-914 [facility] White blood cell (WBC) count Ordered By: HEALTH ASSESSMENT on 11-05-2024 WBC (Bld) [#/Vol] 5.4 10*3/uL 4.4-11.0 [facility] Gastroenterology Visit Repor ton 10-26-2024 Gastroenterology Visit Report [facility]enter[facility] [address] [place] [address] OFFICE VISIT Date of Service: 10/26/24 MR#: [id number] Acct: [id number] Name: RAMANDEEP SNOW Rep #: [id number] : 1980 Provider: ZEINA Bach Age/Sex: 44/F Location: [facility] Status: Signed Intake Vital Signs 09/14/24 13:28 [...] tab PO QDAY #90 tabs 06/11/24 Rx mg-hydrochlorothiazi de 12.5 mg tablet meloxicam 7.5 mg tablet [...] of the same symptoms since previous appointment. PFSH Medical History Left upper quadrant abdominal [...] at home: Yes additional social history: [employer]- [employer] Mait. Patient works at [employer] HPI Chief Complaint: GERD Details: RAMANDEEP SNOW, [...] Start Linzess, Start PPI, Pepcid PRN EGD .04.30; - LA Grade A reflux esophagitis with no bleeding. Biopsied. - Bilious gastric fluid. - Erythematous mucosa in the gastric body. Biopsied. - Normal examined duodenum. OV 5.23.25 Pt is still having intermittent issues with [...] for inattentiven (more content not included)... Normal [facility] Breast imaging reportOrdered By: Alden Garcia on 10-25-2024 Study report [facility] Imaging Services [address] [place] [address] SCRN MAMM (CAD)W/SYDNEY BILAT MR#: [id number] Acct: [id number] Name: RAMANDEEP SNOW Rep #: [id number] : 1980 F 44 From: Craig Garcia MD PCP: Dr. Winifred Pedro MD Status: REG CLI Study:SCRN MAMM (CAD)W/SYDNEY BILAT Date of Exa m: 10/25/24 Exam# [id number] Ordering Dr: Sangeeta Dia CNM EXAM: SCRN [...] be mailed to the patient. Reading Location: [place] [address] CC: ZOHREH Dia; Dr. Winifred Pedro MD ~ Test Inspection Engineer: Signed [facility] SCRN MAMM (CAD)W/SYDNEY BILATo n 10-25-2024 SCRN MAMM (CAD)W/SYDNEY BILAT [facility] Imaging Services [address] [place] [address] SCRN MAMM (CAD)W/SYDNEY BILAT MR#: [id number] Acct: [id number] Name: RAMANDEEP SNOW Rep #: [id number] : 1980 F 44 From: Alden upton MD PCP: Dr. Winifred Pedro MD Status: REG CLI Study: SCRN MAMM (CAD)W/SYDNEY BILAT Date of Exam: 10/05 07/31 Exam# [id number] Ordering Dr: Sangeeta Dia CNM EXAM: SCRN [...] be mailed to the patient. Reading Location: [place] [address] CC: ZOHREH Dia; Dr. Winifred Pedro MD Test Inspection Engineer: Signed Normal [facility] H. PYLORI STOOL AGon 025 H PYLORI STL AG Negative Normal Negative [facility] Comment on above: Result Comment: Perf ormed at: - [facility] [place] [address] Director Of Catering Sales: Elan Kirkland PhD, Phone: [phone] Performed By: #### L 3100.1950 ####[facility] [address] [place] [id number] Stool Helicobacter pylori an tigen detection by immunoassayOrdered By: Marley Evans on 10-10-2024 H. pylori Ag IA Ql (Stl) Negative Negative [facility] Comment on above: Performed at: - [facility] [place] [id number] Director: Elan Kirkland PhD, Phone: [phone] EGD Reporton 09-14-2024 EGD Report [facility] Medical Records Department [address] [place] [address] EGD Report MR#: [id number] Acct: [id number] Name: RAMANDEEP SNOW Rep #: [id number] : 1980 44 From: Srinivas Burgos DO PCP: Dr. Winifred Pedro MD Status:REG [facility] Patient Name: Ramandeep Snow Procedure Date: 09/14/2024 [...] pathology results. Procedure Code(s): --- Professional --- 78918, Esophagogastroduoden oscopy, flexible, transoral; with biopsy, single or multiple CPT copyright 2021 [place] [employer]. All rights reserved. The codes documented in this report are preliminary and upon strapping machine tender review may be revised to meet current compliance requirements. Srinivas Burgos DO 09/14/2024 2:38:41 PM This report has been signed electronically. Number of Addenda: 0 Note Initiated On: 09/14/2024 2:14 PM 09/14/24 1438 Date Srinivas Berumen Signature: Date (if indicated) CC: Dr. Winifred Pedro MD; Srinivas Burgos DO Date Dictated: 09/14/24 1414 Date Transcribed: Test Inspection Engineer: RF Signed [facility] MR/POSTOP.ANEon 09-14-2024 MR/POSTOP.ANE [facility] Medical Records Department [address] [place] [address] Anesthesia Postop Eval I 09/14/24 1437 MR#: [id number] Acct: [id number] Name: RAMANDEEP SNOW Rep #: [id number] : 1980 44 From: Mark Santiago PCP: Dr. Winifred Pedro MD Status:REG SDC Y Race: C Location: [place] [address] Anesthesia: Postop Eval I Current Vital Signs [...] document: Postop Eval 1 completed: Yes 09/14/24 143 Date Mark Vanegasignanika Signature: Date CC: Signed [facility] MR/[id number] 09-14-2024 MR/POSTOPAN2 [facility] Medical Records Department [address] [place] [address] Anesthesia Postop Eval II 09/14/24 1459 MR#: [id number] Acct: [id number] Name: RAMANDEEP SNOW Rep #: [id number] : 1980 44 From: Eliceo Riuz MD PCP: Dr. Winifred Pedro MD Status:REG SDC Y Race: C Location: [place] [address]1 Anesthesia Postop Eval I Sum Postop Eval [...] No Vomiting: No 09/14/24 1459 Date Eliceo Malhotra Signature: Date CC: Signed Normal [facility] Surgery Specimen Level Joyce 09-14-2024 Surgery Specimen Level IV Patient Age/Sex Location Account Attending Physician RAMANDEEP SNOW 44/F EN [id number] Srinivas Burgos DO Specimen: [id number] Received: 09/17/24 Status: BHARATHI Lopez Num: [id number] Spec Type: EGD BIOPSY Subm Dr: Srinivas Burgos DO HEADER OPERATION: EGD with biopsy PRE-OP DIAGNOSIS: Heartburn, abdominal symptoms, constipation TISSUE SUBMITTED: A- Distal esophagus biopsy MICROSCOPIC DIAGNOSIS A. Distal esophagus, biopsy: * [...] 0.3 cm. Submitted in toto in A1. [facility] 09/23/2024 CPT:85845 Patient Age/Sex Location Account Attending Physician RAMANDEEP SNOW 44/F EN [id number] Srinivas Burgos DO Signed (signature on file) Dr. Zhanna Cruz MD 09/23/24 1453 Normal [facility] Comment on above: Performed By: #### P PRISCILLA ####[facility] [address] [place], [address] Orthopedic Visit Reporton Orthopedic Visit Report [facility] [address] [place] [address] [place] [address] OFFICE VISIT Date of Service: 08/27/24 MR#: [id number] Acct: [id number] Name: RAMANDEEP SNOW Rep #: [id number] : 1980 Provider: Dr. Armando jaramillo DO Age/Sex: 44/F Location: [facility] Status: Signed Intake Vital Signs 06/11/24 08:07 [...] tab PO QDAY #90 tabs 06/11/24 Rx mg-hydrochlorothiazi de 12.5 mg tablet meloxicam 7.5 mg tablet [...] at home: Yes additional social history: [employer]- [employer]. Patient works at [employer] HPI BILATERAL KNEES Details: This documentation accurately [...] not painful. (more content not included)... Normal [facility] PT D/C Summary (1)on 025 PT D/C Summary (1) [facility] Physical Therapy [facility] [address] [place] [address] / REHABILITATION SERVICES DISCHARGE SUMMARY MR#: [id number] Acct: [id number] Name: RAMANDEEP SNOW Rep #: [id number] : 1980 43 From: Ender Chappell PT, Cert. T, OCS Referring Dr.: Dr. Mj Kingsley MD Status: REG RCR Insurance: [employer] SELF PAY INSURANCE Discharge Summary D/C summary: [...] please feel free to call me at [phone]. Thank you for the referral of this patient. Sincerely, Ender Chappell, PT, Cert MDT, OCS Balance/Gait/Functio nal tests Balance/Special Test Scores Oswestry Neck Score: 18 Improvement % Improvement: 85 07/26/24 1217 CC: Dr. Mj Kingsley MD; Dr. Winifred Pedro MD JLA Signed Normal [facility] Gastroenterology Visit Repor ton 07-13-2024 Gastroenterology Visit Report [facility] Gastroenterology [address] [place] [address] OFFICE VISIT Date of Service: 07/13/24 MR#: [id number] Acct: [id number] Name: RAMANDEEP SNOW Rep #: [id number] : 1980 Provider: ZEINA Bach Age/Sex: 43/F Location: [facility] Status: Signed Intake Vital Signs 06/11/24 08:07 Height 5 ft 2 in Weight: 151 lb 4 oz BMI 27.6 BP 130/84 H Blood Pressure Location Lt brachial Position Sitting Respiration 16 Pulse 68 Pulse Source Monitor Temp 98.4 F Temp Source Temporal Pulse Oximetry (%) 96 Oxygen Delivery Method room air Intake Visit Reasons: Abdominal complaints Chief Complaint: constipation Professional Services Consultant Required: No Is patient in pain?: No Allergies hydromorphone (From Dilaudid) Allergy (Verified 06/11/24 08:00) Rash isopropyl alcohol (From ChloraPrep Clear) Allergy (Verified 06/11/24 08:00) Hives chlorhexidine Adverse Reaction (Intermediate, Verified 06/11/24 08:00) rash Post menopausal: No Patient : No Have you fallen in the past year?: No Nurse's Note: OV 07.13.24 Pt here to establish care with [facility]. Pt reports constipation, ULQ abdominal pain, heartburn, trouble swallowing, gas, and bloating. Has a formed BM daily. Denies bloody stools, vomiting, and diarrhea. Pt reports prior hx of colonoscopy in 2018. No hx of an EGD. Takes esomeprazole and senna. [facility] Medical History Constipation Left upper quadrant abdominal [...] at home: Yes additional social history: [employer] Pallavi. Patient works at [employer] HPI Chief Complaint: constipation Details: RAMANDEEP SNOW, is a 43 F who presents to the office today for establishment with [facility]. Pt has been having issues with constipation [...] eyes Jony (more content not included)... Normal [facility] MR/BMS.IMBon 06-11-2024 MR/BMS.IMB [facility] [address] [place] [address] OFFICE VISIT Date of Service: 06/11/24 MR#: [id number] Acct: [id number] Name: RAMANDEEP SNOW Rep #: [id number] : 1980 Provider: Dr. Winifred donaldson MD Age/Sex: 43/F Location: [facility] Status: Signed Intake Vital Signs 05/11/24 06:22 [...] Follow up Chief Complaint: BP follow up Professional Services Consultant Required: No Accompanied by: Self Is patient [...] DAILY 05/11/24 06/11/24 History capsule,delayed release (Acid Foot Roentgenologist (esomeprazole)) baclofen 5 mg tablet 5 mg PO TID PRN 06/11/24 06/11/24 History losartan 100 1 tab PO QDAY #90 tabs 06/11/24 06/11/24 Rx mg-hydrochlorothiazi de 12.5 mg tablet meloxicam 7.5 mg tablet [...] (Updated 06/11/24 @ 08:07 by Sarah Avilez, RN) H/O bilateral salpingectomy Hx of dilation and [...] at home: Yes additional social history: [employer]- [employer]. Patient works at [employer] Chief Complaint: BP follow up Details: RAMANDEEP [...] was previousl (more content not included)... Normal [facility] Inital Evaluation (1) - PTon 05-24-2024 Inital Evaluation (1) - PT [facility] Physical Therapy [facility] [address] [place] [address] / REHABILITATION SERVICES INITIAL EVALUATION MR#: [id number] Acct: [id number] Name: RAMANDEEP SNOW Rep #: [id number] : 1980 43 From: Cristina Dotson PT. T, OCS Referring Dr.: Dr. Mj Kingsley MD Status: REG RCR Insurance: [employer] [facility] [employer] [employer] Patient's Visit Information Visit Information Visit Information: RAMANDEEP SNOW is a 43 year old F referred to Physical Therapy by Dr. Mj Kingsley MD with a diagnosis of CERVICAL DISC DEGENERATION ,MID CERVICAL REGION. Date of Evaluation: 05/24/24 Physical Therapist: Ender Chappell PT, Cert T, OCS Visit Plan Frequency: 2x /Week Duration: 3 Weeks Plan: PT INTERVENTIONS CERVICAL ROM/FLEXABILITY,MANU AL THERAPY STM /TRACTION ,STRENGTHENING ,POSTURE TRAINING AND [...] decrease pain and manage. SOCIAL: single VOCATION: [employer] Denies paresthesia/tingling occasional fingers. Patient has some dizziness /nausea,no tinnitus. Patient symptoms affects sleeping ,Patient 2006 slipped on steps. Pain Bilateral Neck: Pain [...] to perform ADL's, To increase tolerance to activity/condition/p osition, To improve ability of physical actions for home/community/work/ leisure, To improve health of tissue, To decrease soft tissue restriction, To increase flexibility/ROM and To prevent re-injury Therapeutic Exercise to Include: Strength training, Body mechanics, Postural training, Flexibilty training and Active ROM For the Purpose of:: To decrease pain, To increase ROM, To improve muscle performance and motor function, To improve ability to perform ADL's, To increase tolerance to activity/condition/p osition, To improve ability of physical actions for home/community/work/ leisure, To increase flexibility/ROM and To improve tolerance to ADL's Manual Therapy Techniques to Include: Mobilization and Soft tissue mobilization Comment: CERVICAL TRACTION For the Purpose of:: To decrease pain, To increase ROM, To improve muscle performance and motor function, To improve ability to perform ADL's, To increase tolerance to activity/condition/p osi (more content not included)... Normal [facility] Decalcification bone/plaqueo n 05-11-2024 Decalcification bone/plaque Patient Age/Sex Location Account Attending Physician RAMANDEEP SNOW/F [facility] [id number] Dr. Edmund Salazar DPM Specimen: [id number] Received: 05/11/24 Status: BHARATHI Lopez Num: [id number] Spec Type: Bone Subm Dr: Dr. Edmund Salazar, DPM HEADER OPERATION: Hardware removal of left foot, resection of osteophyte PRE-OP DIAGNOSIS: Hardware removal of the left foot, osteophyte exostosis TISSUE SUBMITTED: Bone 5th metatarsal MICROSCOPIC DIAGNOSIS 5th metatarsal bone, bone biopsy: Focal reparative and reactive change. No evidence of osteomyelitis. AM. 05/14/2024 MICROSCOPIC DESCRIPTION Slides are reviewed. GROSS DESCRIPTION Received in fixative is one container labeled with the patient's name and designated Bone 5th metatarsal. The specimen consists of a cylindrical bone. The bone measures 0.7cm for length and 0.2cm for diameter. The specimen is totally submitted in one cassette after decalcification. AM. 05/11/2024 TC:5 CPT:84941,14716 Patient Age/Sex Location Account Attending Physician GWENDOLYNRAMANDEEP MICHAEL 43/F [facility] [id number] Dr. Edmund Salazar DPM Signed (signature on file) Dr. Pee Rodriguez DO 05/14/24 1255 Normal [facility] Comment on above: Performed By: #### P DEC #### [facility] [address] [place] [address]. [place], [address] Discharge Instructionon 12-0 Discharge Instruction [facility] Medical Records Department [address] [place] [address] Instructions for Home/Discharge Instructions 05/11/24 0943 MR#: [id number] Acct: [id number] Name: SRIDHARSNEHAAquilesREBECCAY MICHAEL Rep #: [id number] : 1980 43 From: Edmund Salazar DPM PCP: Dr. Winifred Pedro MD Status:REG [facility] Discharge Instructions Diet Discharge Diet: Light diet [...] Salazar DPM When: in 1 week at [facility], follow up sooner if needed Test Results: Test results from this visit will be discussed in further detail at your follow-up appointment, if applicable. Discharge Plan Admission Attending Provider: Edmund Salazar Primary Care Provider: Winifred Pedro Consulting Providers: Winifred Pedro Instructions Print Language: Chinese Discharge Orders/Prescriptions Prescriptions: New hydrocodone-acetamin ophen 5-300 mg tablet 1 tab PO Q6H PRN (Reason: pain) 3 Days Qty: 18 0RF No Action ferrous sulfate 325 mg (65 mg iron) tablet,delayed release (DR/EC) 325 mg PO Q OTHER DAY cholecalciferol (vitamin D3) [Vitamin D3] 25 mcg (1,000 unit) capsule 50 mcg PO DAILY multivitamin Tablet 1 tab PO QDAY losartan-hydrochloro thiazide 50-12.5 mg tablet 1 tab PO QDAY Qty: 90 1RF bupropion HCl [Wellbutrin XL] 150 mg tablet extended release 24 hr 150 mg PO QAM Qty: 30 1RF ibuprofen 400 mg tablet 400 mg PO Q6H PRN (Reason: pain) Qty: 30 0RF Probiotic Acidophilus 250 million cell capsule 500 mmu cells PO DAILY esomeprazole magnesium [Acid Foot Roentgenologist (esomeprazole)] 20 mg capsule,delayed release(DR/EC) 20 mg PO DAILY Referrals / Follow Up: Winifred Pedro MD [Primary Care Provider] - Disposition Disposition (needs filled in before D/C Order can be placed): Home, Self Care 05/11/24 0945 Edmund Salazar DPM CC: Dr. Winifred Pedro MD Signed Normal [facility] Foot 2 Viewson 05-11-2024 Foot 2 Views [facility] Services [address] [place], [place] [id number] Foot 2 Views MR#: [id number] Acct: [id number] Name: RAMANDEEP SNOW Rep #: [id number] : 1980 F 43 From: Danialorlando cuba DO PCP: Dr. Winifred Pedro MD Status: [facility] Study: Foot 2 Views Date of Exam: 05/11/24 Exam# [id number] Ordering Dr: Edmund Salazar DPM [id number] EXAM: FL FLUOROSCOPY < 1 HOUR CLINICAL INDICATION: PAIN TECHNIQUE: Fluoroscopic images performed in multiple projections. Fluoroscopic guidance was provided by a physician. Total time: 19 seconds. Total dose: 0.1161 mGy. COMPARISON: No relevant prior studies available. FINDINGS AND RAD/Foot 2 Views IMPRESSION: Intraoperative fluoroscopy. Refer to the operative note for complete details. Electronically Signed: Danial BonillaDO at 18:43 EST , CC: YANELIS Salazar; Dr. Winifred Pedro MD Test Inspection Engineer: Signed Normal [facility] Foot min 3 Viewson 4 Foot min 3 Views [facility] Services [address] [place] [address] Foot min 3 Views MR#: [id number] Acct: [id number] Name: RAMANDEEP SNOW Rep #: [id number] : 1980 F 43 From: Danialorlando cuba DO PCP: Dr. Winifred Pedro MD Status: [facility] Study: Foot min 3 Views Date of Exam: 05/11/24 Exam# [id number] Ordering Dr: Edmund Salazar DPM [id number] EXAM: XR LEFT FOOT COMPLETE, 3 OR [...] CC: YANELIS Salazar; Dr. Winifred Pedro MD Test Inspection Engineer: Signed [facility] MR/POSTOP.[facility] 05-11-2024 MR/POSTOP.[facility] Medical Records Department [address] [place] [address] Anesthesia Postop Eval I 05/11/24 0943 MR#: [id number] Acct: [id number] Name: RAMANDEEP SNOW Rep #: [id number] : 1980 43 From: Suzy Waddell CRNA PCP: Dr. Winifred Pedro MD Status:REG SDC Y Race: C Location: [place] [address] Anesthesia: Postop Eval I Current Vital Signs [...] 1 completed: Yes 05/11/24944 Date Suzy Waddell PLASTIC DIE MAKER APPRENTICE Cosigner Signature: Date CC: Signed Normal [facility] MR/EGEPNFMA1iz 05-11-2024 MR/POSTOPAN2 [facility] Medical Records Department [address] [place] [address] Anesthesia Postop Eval II 05/11/24 1227 MR#: [id number] Acct: [id number] Name: RAMANDEEP SNOW Rep #: [id number] : 1980 43 From: Eliceo Ruiz MD PCP: Dr. Winifred Pedro MD Status:[facility] Y Race: C Location: [facility] Anesthesia Postop Eval I Sum Postop Eval Completion status Anesthesia document: Postop Eval 1 completed: Yes Anesthesia Postop Eval I Summary Anesthesia Postop Eval I Summary: Anesthesia Postop Eval I: Assessment Summary Airway patent Yes 05/11/24 09:45 PLASTIC DIE MAKER APPRENTICE.JDEF Spontaneous unlabored Yes 05/11/24 09:45 PLASTIC DIE MAKER APPRENTICE.JDEF respirations Mental status Awake 05/11/24 09:45 PLASTIC DIE MAKER APPRENTICE.JDEF nausea No 05/11/24 09:45 PLASTIC DIE MAKER APPRENTICE.JDEF Vomiting No 05/11/24 09:45 PLASTIC DIE MAKER APPRENTICE.JDEF Anesthesia Postop Eval I: Fluid Summary Crystalloid volume administer 250 05/11/24 09:45 PLASTIC DIE MAKER APPRENTICE.JDEF (ml) Colloids volume administered ( ml) Blood Product volume administered (ml) Total IV fluid infused 250 05/11/24 09:45 PLASTIC DIE MAKER APPRENTICE.JDEF Anesthesia Postop Eval I: Summary Notes Anesthesia Complication No 05/11/24 09:45 PLASTIC DIE MAKER APPRENTICE.JDEF Anesthesia Complication Comment: Post-operative progress note Anesthesia: Postop Eval II Evaluation Mental status: Awake Pain Level: 2 nausea: No Vomiting: No 05/11/24 1227 Date Eliceo Malhotra Signature: Date CC: Signed Normal [facility] Operative Reporton 4 Operative Report [facility] Medical Records Department [address] [place] [address] Operative Report 05/11/24 0941 MR#: [id number] Acct: [id number] Name: RAMANDEEP SNOW Rep #: [id number] : 1980 43 From: Edmund Salazar DPM PCP: Dr. 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 Excision of Exostosis/Osteophyte : Attention was directed to the left 5th metatarsal where an exostosis/osteophyte was noted dorsal laterally. A linear skin inc (more content not included)... Normal [facility] CBC W/Diff, Automatedon 11-2 Absolute Lymph 2.50 X10 3/uL Normal 0.83-4.51 [facility] Comment on above: Performed By: #### L 500.4050, L501.95998, L506.0400, L501.9520, L506.1000, L100.0100 #### [facility] [address] [place], [address] Absolute Neut 3.8 X10 3/uL Normal 2.0-7.7 [facility] Comment on above: Performed By: #### L 500.4050, L501.42465, L506.0400, L501.9520, L506.1000, L100.0100 #### [facility] [address] [place], [address] Basophils/100 WBC (Bld) 1.3 % High 0-1 [facility] Comment on above: Performed By: #### L 500.4050, L501.01522, L506.0400, L501.9520, L506.1000, L100.0100 #### [facility] [address] [place], [address] Eosinophils/100 WBC (Bld) 2.1 % Normal 0-5 [facility] Comment on above: Performed By: #### L 500.4050, L501.76328, L506.0400, L501.9520, L506.1000, L100.0100 #### [facility] [address] [place], [address] Erythrocyte distribution width (RBC) [Ratio] 12.9 % Normal 11.6-14.6 [facility] Comment on above: Performed By: #### L 500.4050, L501.02359, L506.0400, L501.9520, L506.1000, L100.0100 #### [facility] [address] [place], [address] Hematocrit (Bld) [Volume fraction] 42.3 % Normal 37-47 [facility] Comment on above: Performed By: #### L 500.4050, L501.61583, L506.0400, L501.9520, L506.1000, L100.0100 #### [facility] [address] [place], [address] Hemoglobin (Bld) [Mass/Vol] 13.7 g/dL Normal 12.0-15.0 [facility] Comment on above: Performed By: #### L 500.4050, L501.81941, L506.0400, L501.9520, L506.1000, L100.0100 #### [facility] [address] [place], [address] IG% 0.100 Normal 0.0-0.9 [facility] Comment on above: Result Comment: IG% - Immature Granulocytes (promyelocytes, myelocytes and metamyelocytes) > 1% indicates that a LEFT SHIFT is Present. Performed By: #### L 500.4050, L501.28386, L506.0400, L501.9520, L506.1000, L100.0100 #### [facility] [address] [place], [address] Lymphocytes/100 WBC (Bld) 35.3 % Normal 19-41 [facility] Comment on above: Performed By: #### L 500.4050, L501.01903, L506.0400, L501.9520, L506.1000, L100.0100 #### [facility] [address] [place], [address] MCH (RBC) [Entitic mass] 29.5 pg Normal 27.0-32.0 [facility] Comment on above: Performed By: #### L 500.4050, L501.52824, L506.0400, L501.9520, L506.1000, L100.0100 #### [facility] [address] [place], [address] MCHC (RBC) [Mass/Vol] 32.4 g/dL Normal 32-36 [facility] Comment on above: Performed By: #### L 500.4050, L501.05233, L506.0400, L501.9520, L506.1000, L100.0100 #### [facility] [address] [place], [address] MCV (RBC) [Entitic vol] 91.0 fL Normal 81-99 [facility] Comment on above: Performed By: #### L 500.4050, L501.53337, L506.0400, L501.9520, L506.1000, L100.0100 #### [facility] [address] [place], [address] Monocytes/100 WBC (Bld) 7.3 % Normal 0-10 [facility] Comment on above: Performed By: #### L 500.4050, L501.47275, L506.0400, L501.9520, L506.1000, L100.0100 #### [facility] [address] [place], [address] Neutrophils/100 WBC (Bld) 53.9 % Normal 47-70 [facility] Comment on above: Performed By: #### L 500.4050, L501.76936, L506.0400, L501.9520, L506.1000, L100.0100 #### [facility] [address] [place], [address] Nucleated RBC (Bld) [#/Vol] 0 10*3/uL Normal 0-5 [facility] Comment on above: Performed By: #### L 500.4050, L501.64241, L506.0400, L501.9520, L506.1000, L100.0100 #### [facility] [address] [place], [address] Platelet mean volume (Bld) [Entitic vol] 9.7 fL Normal 6.2-12.0 [facility] Comment on above: Performed By: #### L 500.4050, L501.97787, L506.0400, L501.9520, L506.1000, L100.0100 #### [facility] [address] [place], [address] Platelets (Bld) [#/Vol] 300 10*3/uL Normal 150-450 [facility] Comment on above: Performed By: #### L 500.4050, L501.50132, L506.0400, L501.9520, L506.1000, L100.0100 #### [facility] [address] [place], [address] RBC (Bld) [#/Vol] 4.65 10*6/uL Normal 4.2-5.4 [facility] Comment on above: Performed By: #### L 500.4050, L501.18974, L506.0400, L501.9520, L506.1000, L100.0100 #### [facility] [address] [place], [address] RDW SD 42.4 fl Normal 35.1-43.9 [facility] Comment on above: Performed By: #### L 500.4050, L501.25255, L506.0400, L501.9520, L506.1000, L100.0100 #### [facility] [address] [place], [address] WBC (Bld) [#/Vol] 7.1 10*3/uL Normal 4.4-11.0 [facility] Comment on above: Performed By: #### L 500.4050, L501.72723, L506.0400, L501.9520, L506.1000, L100.0100 #### [facility] [address] [place], [address] Comprehensive Metabolic [facility] 04-26-2024 Albumin [Mass/Vol] 3.8 g/dL Normal 3.2-5.0 [facility] Comment on above: Performed By: #### L 500.4050, L501.68362, L506.0400, L501.9520, L506.1000, L100.0100 #### [facility] [address] [place], [address] Albumin/Globulin [Mass ratio] 1.2 {ratio} Normal 0.9-2.4 [facility] Comment on above: Performed By: #### L 500.4050, L501.50249, L506.0400, L501.9520, L506.1000, L100.0100 #### [facility] [address] [place], [address] ALK P 60 U/L Normal 45-117 [facility] Comment on above: Performed By: #### L 500.4050, L501.22524, L506.0400, L501.9520, L506.1000, L100.0100 #### [facility] [address] [place], [address] ALT [Catalytic activity/Vol] 22 U/L Normal 13-56 [facility] Comment on above: Performed By: #### L 500.4050, L501.25074, L506.0400, L501.9520, L506.1000, L100.0100 #### [facility] [address] [place], [address] AST [Catalytic activity/Vol] 13 U/L Low 15-37 [facility] Comment on above: Performed By: #### L 500.4050, L501.56918, L506.0400, L501.9520, L506.1000, L100.0100 #### [facility] [address] [place], [address] Bilirubin [Mass/Vol] 0.70 mg/dL Normal 0.20-1.00 [facility] Comment on above: Result Comment: For patients on eltrombopag therapy, use of Dimension [place] TBIL is not recommended. Performed By: #### L 500.4050, L501.78267, L506.0400, L501.9520, L506.1000, L100.0100 #### [facility] [address] [place], [address] BUN/CRE 16.4 RATIO Normal 10-20 [facility] Comment on above: Performed By: #### L 500.4050, L501.24357, L506.0400, L501.9520, L506.1000, L100.0100 #### [facility] [address] [place], [address] CA,Total 8.8 mg/dL Normal 8.5-10.1 [facility] Comment on above: Performed By: #### L 500.4050, L501.86788, L506.0400, L501.9520, L506.1000, L100.0100 #### [facility] [address] [place], [address] Chloride [Moles/Vol] 104 mmol/L Normal 98-107 [facility] Comment on above: Performed By: #### L 500.4050, L501.80700, L506.0400, L501.9520, L506.1000, L100.0100 #### [facility] [address] [place], [address] CO2 [Moles/Vol] 24.0 mmol/L Normal 21.0-32.0 [facility] Comment on above: Performed By: #### L 500.4050, L501.25255, L506.0400, L501.9520, L506.1000, L100.0100 #### [facility] [address] [place], [address] Creatinine [Mass/Vol] 0.79 mg/dL Normal 0.55-1.02 [facility] Comment on above: Result Comment: The validity of the calculated GFR GFRAA in patients over 70 years has not been determined. Clinical correlation is essential. Performed By: #### L 500.4050, L501.07198, L506.0400, L501.9520, L506.1000, L100.0100 #### [facility] [address] [place], [address] EST GFR - AA 101 mL/min Normal >60 [facility] Comment on above: Result Comment: Afri can [place] GFR Calc Performed By: #### L 500.4050, L501.19347, L506.0400, L501.9520, L506.1000, L100.0100 #### [facility] [address] [place], [address] GAP 9 Normal 5-15 [facility] Comment on above: Performed By: #### L 500.4050, L501.51061, L506.0400, L501.9520, L506.1000, L100.0100 #### [facility] [address] [place], [address] GFR/1.73 sq M.predicted among non-blacks MDRD (S/P/Bld) [Vol rate/Area] 83 mL/min/{1.73_m2} Normal >60 [facility] Comment on above: Result Comment: Non- GFR Calc Performed By: #### L 500.4050, L501.23460, L506.0400, L501.9520, L506.1000, L100.0100 #### [facility] [address] [place], [address] Globulin (S) [Mass/Vol] 3.1 g/dL Normal 2.2-4.2 [facility] Comment on above: Performed By: #### L 500.4050, L501.36422, L506.0400, L501.9520, L506.1000, L100.0100 #### [facility] [address] [place], [address] Glucose [Mass/Vol] 88 mg/dL Normal 74-106 [facility] Comment on above: Performed By: #### L 500.4050, L501.90139, L506.0400, L501.9520, L506.1000, L100.0100 #### [facility] [address] [place], [address] Potassium [Moles/Vol] 3.5 mmol/L Normal 3.5-5.1 [facility] Comment on above: Performed By: #### L 500.4050, L501.51056, L506.0400, L501.9520, L506.1000, L100.0100 #### [facility] [address] [place], [address] Sodium [Moles/Vol] 137 mmol/L Normal 136-145 [facility] Comment on above: Performed By: #### L 500.4050, L501.70501, L506.0400, L501.9520, L506.1000, L100.0100 #### [facility] [address] [place], [address] T PROT 6.9 g/dL Normal 6.4-8.2 [facility] Comment on above: Performed By: #### L 500.4050, L501.89825, L506.0400, L501.9520, L506.1000, L100.0100 #### [facility] [address] [place], [address] Urea nitrogen [Mass/Vol] 13 mg/dL Normal 7-18 [facility] Comment on above: Performed By: #### L 500.4050, L501.69858, L506.0400, L501.9520, L506.1000, L100.0100 #### [facility] [address] [place], [address] Free T3on 4 Free T3 [Mass/Vol] 3.0 pg/mL Normal 2.18-3.98 [facility] Comment on above: Performed By: #### L 500.4050, L501.67331, L506.0400, L501.9520, L506.1000, L100.0100 #### [facility] [address] [place], [address] T4 Free Directon 04-26-2024 T4 FREE DIRECT 0.88 ng/dL Normal 0.76-1.46 [facility] Comment on above: Performed By: #### L 500.4050, L501.54191, L506.0400, L501.9520, L506.1000, L100.0100 ####[facility] [address] [place], [address] Thyroid Stim Hormone (TSH)on 04-26-2024 TSH 3.190 uIU/mL Normal 0.358-3.740 [facility] Comment on above: Performed By: #### L 500.4050, L501.45469, L506.0400, L501.9520, L506.1000, L100.0100 ####[facility] [address] [place], [address] Vitamin D,25 Hydroxyon 04-26 Vitamin D 25-OH 60.8 ng/mL Normal [facility] Comment on above: Result Comment: Dixie min D 25(OH) Status Range Deficiency <20 ng/mL (50nmol/L) Insufficiency 20 - 30 ng/mL (50 - 75 nmol/L) Sufficiency 30 - 100 ng/mL (75 - 250 nmol/L) Toxicity >100 ng/mL (>250 nmol/L) Performed By: #### L 500.4050, L501.36470, L506.0400, L501.9520, L506.1000, L100.0100 #### [facility] [address] [place], [address] Orthopedic Visit Reporton Orthopedic Visit Report [facility] [address] [place] [address] [address] [place] [address] OFFICE VISIT Date of Service: 04/24/24 MR#: [id number] Acct: [id number] Name: RAMANDEEP SNOW Rep #: [id number] : 1980 Provider: Dr. Mj Kingsley MD Age/Sex: 43/F Location: [facility] Status: Signed Intake Vital Signs 04/18/24 11:03 [...] Rx extended release (Wellbutrin XL) losartan 50 mg-hydrochlorothiazi de 1 tab PO QDAY #90 tabs 04/16/24 04/24/24 Rx 12.5 mg tablet multivitamin 1 tab PO QDAY 04/16/24 04/24/24 History PFSH Medical History Preop exam for [...] of removal of retained hardware History of [facility] History of bunionectomy of both great toes [...] at home: Yes additional social history: In[employer]- [employer] Pall[employer]. Patient works at [employer] CERVICAL SPINE Details: This documentation accurately reflects [...] into her bilateral hands. 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 Patient notes that she has [...] no acut (more content not included)... Normal [facility] Spine Cervical (Routine)on 06-23-2023 Spine Cervical (Routine) [facility] Imaging Services [address] [place] [address] Spine Cervical (Routine) MR#: [id number] Acct: [id number] Name: RAMANDEEP SNOW Rep #: [id number] : 1980 F 43 From: Beverly Seymour PCP: Dr. Winifred Pedro MD Status: [facility] Study: Spine Cervical (Routine) Date of Exam: Exam# [id number] Ordering Dr: Mj Kingsley MD [id number] INDICATION: pain, RADICULOPATHY BILAT UPPER EXTREMITIES EXAMINATION: MRI - MR Spine Cervical W/O Contrast TECHNIQUE: Multiplanar and multisequence MR images of the cervical spine were performed. IV Contrast Dosage and Agent: None. COMPARISON: None. ____ FINDINGS: VERTEBRAE: Normal vertebral bodies and posterior [...] 5:57 EST Reading Location ID and State: [facility] / [place] Tel , Service support , CC: Dr. Mj Kingsley MD; Dr. Winifred Pedro MD Test Inspection Engineer: Signed Normal [facility] Plastic Surgery Visit Report on 04-18-2024 Plastic Surgery Visit Report [facility] Plastic Reconstructive Surgery [address], [address] [place], [place] [id number] OFFICE VISIT Date of Service: 04/18/24 MR#: [id number] Acct: [id number] Name: RAMANDEEP SNOW Rep #: [id number] : 1980 Provider: DINAH fernando Age/Sex: 43/F Location: [facility] Status: Signed Intake Vital Signs 01/02/24 08:11 [...] Rx extended release (Wellbutrin XL) losartan 50 mg-hydrochlorothiazi de 1 tab PO QDAY #90 tabs 04/16/24 04/18/24 Rx 12.5 mg tablet multivitamin 1 tab PO QDAY 04/16/24 04/18/24 History [facility] Medical History Preop exam for internal medicine [...] at home: Yes additional social history: [employer]- [employer] Pallavi. Patient works at [employer] HPI Procedure - cosmetic laser Details: 43 year [...] of melasma which started after she started lisinopril/hydrochlo rothiazide for her blood pressure control. She did not notice any difference in her melasma after her last laser treatments. The following conditions are applicable to the areas being treated. Patient denies active infection in the areas to be treated. There are no dysplastic nevi. There are no tattoos. There are not any significant concurrent s (more content not included)... Normal [facility] MR/BMS.[facility] 04-16-2024 MR/BMS.[facility] [address] [place] [address] OFFICE VISIT Date of Service: 04/16/24 MR#: [id number] Acct: [id number] Name: RAMANDEEP SNOW Rep #: [id number] : 1980 Provider: Dr. Winifred donaldson MD Age/Sex: 43/F Location: [facility] Status: Signed Intake Vital Signs 11/14/23 08:02 [...] Reasons: Surgery Clearance Chief Complaint: sugery clearance Professional Services Consultant Required: No Accompanied by: Self Is patient [...] Rx extended release (Wellbutrin XL) losartan 50 mg-hydrochlorothiazi de 1 tab PO QDAY #90 tabs 04/16/24 [...] at home: Yes additional social history: [employer]- [employer] Pallavi. Patient works at [employer] HPI Chief Complaint: sugery clearance Details: RAMANDEEP SNOW, [...] she was (more content not included)... Normal [facility] Orthopedic Visit Reporton Orthopedic Visit Report [facility] [address] [place] [address] OFFICE VISIT Date of Service: 04/16/24 MR#: [id number] Acct: [id number] Name: RAMANDEEP SNOW Rep #: [id number] : 1980 Provider: Dr. Mj Kingsley MD Age/Sex: 43/F Location: [facility] Status: Signed Intake Vital Signs 04/10/24 13:14 [...] Rx extended release (Wellbutrin XL) losartan 50 mg-hydrochlorothiazi de 1 tab PO QDAY #90 tabs 04/16/24 04/16/24 Rx 12.5 mg tablet multivitamin 1 tab PO QDAY 04/16/24 04/16/24 History [facility] Medical History (Updated 04/16/24 @ 15:48 by [...] at home: Yes additional social history: [employer]- [employer] Pallavi. Patient works at [employer] HPI CERVICAL SPINE Details: This documentation accurately [...] into her bilateral hands. 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 Patient notes that she has [...] LUMBAR Musculo (more content not included)... Normal [facility] Cerv Spine 4 or 5 Viewson Cerv Spine 4 or 5 Views [facility] Imaging Services [address] [place] [address] Cerv Spine 4 or 5 Views MR#: [id number] Acct: [id number] Name: RAMANDEEP SNOW Rep #: [id number] : 1980 F 43 From: [place]ial [place] DO PCP: Dr. Winifred Pedro MD Status: REG CLI Study: Cerv Spine 4 or 5 Views Date of Exam: 04/12/24 Exam# [id number] Ordering Dr: Mj Kingsley MD [id number] EXAM: XR CERVICAL SPINE, 4 OR 5 [...] Mj Kingsley MD; Dr. Winifred Pedro MD Test Inspection Engineer: Signed Normal [facility] L/S Spine Min 4 Viewson 11-0 L/S Spine Min 4 Views [facility] Imaging Services [address] [place] [address] L/S Spine Min 4 Views MR#: [id number] Acct: [id number] Name: RAMANDEEP SNOW Rep #: [id number] : 1980 F 43 From: Danial Meloke rosa elena PCP: Dr. Winifred Pedro MD Status: [facility] Study: L/S Spine Min 4 Views Date of Exam: 04/12/24 Exam# [id number] Ordering Dr: Mj Kingsley MD [id number] EXAM: XR CERVICAL SPINE, 4 OR 5 [...] Mj Kingsley MD; Dr. Winifred Pedro MD Test Inspection Engineer: Signed Normal [facility] Thoracic Spine 2 Viewson Thoracic Spine 2 Views [facility] Imaging Services [address] [place] [id number] Thoracic Spine 2 Views MR#: [id number] Acct: [id number] Name: RAMANDEEP SNOW Rep #: [id number] : 1980 F 43 From: Danial [place] DO PCP: Dr. Winifred Pedro MD Status: REG CLI Study: Thoracic Spine 2 Views Date of Exam: 04/12/24 Exam# [id number] Ordering Dr: Mj Kingsley MD [id number] EXAM: XR CERVICAL SPINE, 4 OR 5 [...] Mj Kingsley MD; Dr. Winifred Pedro MD Test Inspection Engineer: Signed Normal [facility] Absolute lymphocyte countOrd ered By: HEALTH ASSESSMENT on 03-23-2023 Lymphocytes Auto (Unsp spec) [#/Vol] 2.24 10*3/uL 0.83-4.51 [facility] Absolute reticulocyte countO rdered By: HEALTH ASSESSMENT on 03-23-2023 Reticulocytes (Bld) [#/Vol] 0.00 10*3/uL 0-5 [facility] Basophil percentageOrdered B y: HEALTH ASSESSMENT on 03-23-2023 Basophil percentage 3.1 mg/dL 2.5-4.9 [facility] Bilirubin [Mass/Vol] 0.50 mg/dL 0.20-1.00 [facility] Comment on above: For patients on eltr ombopag therapy, use of Dimension [place] TBIL is not recommended. Chloride [Moles/Vol] 105 mmol/L 98-107 [facility] Cholesterol [Mass/Vol] 191 mg/dL <200 [facility] Comment on above: <200 mg/dL Desirable 200-240 mg/dL Borderline >240 mg/dL High Risk Glucose [Mass/Vol] 98 mg/dL 74-106 [facility] LDH [Catalytic activity/Vol] 166 U/L 84-246 [facility] Neutrophils (Bld) [#/Vol] 3.5 10*3/uL 2.0-7.7 [facility] Potassium [Moles/Vol] 3.9 mmol/L 3.5-5.1 [facility] Protein [Mass/Vol] 7.2 g/dL 6.4-8.2 [facility] Sodium [Moles/Vol] 137 mmol/L 136-145 [facility] Triglyceride [Mass/Vol] 67 mg/dL <199 [facility] Comment on above: The drugs N-Acetylcy steine and Metamizole may falsely depress this assay.Serum Triglycerides Reference Interval Normal <150 mg/dL Borderline high 150 - 199 mg/dL High 200 - 499 mg/dL Very High > or = 500 mg/dL WBC (Bld) [#/Vol] 6.3 10*3/uL 4.4-11.0 [facility] Blood erythrocytes count (nu mber/volume)Ordered By: HEALTH ASSESSMENT on 03-23-2023 RBC (Bld) [#/Vol] 4.77 10*6/uL 4.2-5.4 [facility] Blood hemoglobin measurement (mass/volume)Ordered By: HEALTH ASSESSMENT on 03-23-2023 Hemoglobin (Bld) [Mass/Vol] 14.6 g/dL 12.0-15.0 [facility] Blood platelet mean volumeOr dered By: HEALTH ASSESSMENT on 03-23-2023 Platelet mean volume (Bld) [Entitic vol] 9.8 fL 6.2-12.0 [facility] Determination of erythrocyte mean corpuscular volume (MCV)Ordered By: HEALTH ASSESSMENT on 03-23-2023 MCV (RBC) [Entitic vol] 91.2 fL 81-99 [facility] Direct bilirubinOrdered By: HEALTH ASSESSMENT on 03-23-2023 Bilirubin.direct [Mass/Vol] 0.13 mg/dL 0.00-0.30 [facility] Hematocrit Auto (Bld) [Volum e fraction]Ordered By: HEALTH ASSESSMENT on 03-23-2023 Hematocrit (Bld) [Volume fraction] 43.5 % 37-47 [facility] Laboratory - Chemistry and C hemistry - challengeOrdered By: HEALTH ASSESSMENT on 03-23-2023 ALP [Catalytic activity/Vol] 76 U/L 45-117 [facility] ALT [Catalytic activity/Vol] 30 U/L 13-56 [facility] Cholesterol.total/Choles terol in HDL [Mass ratio] 2.50 {ratio} [facility] CO2 [Moles/Vol] 28.0 mmol/L 21.0-32.0 [facility] Globulin (S) [Mass/Vol] 3.6 g/dL 2.2-4.2 [facility] Urea nitrogen/Creatinine [Mass ratio] 19.3 mg/mg 10-20 [facility] Laboratory - Hematology and Cell countsOrdered By: HEALTH ASSESSMENT on 03-23-2023 Erythrocyte distribution width (RBC) [Entitic vol] 40.5 fL 35.1-43.9 [facility] Erythrocyte distribution width (RBC) [Ratio] 12.2 % 11.6-14.6 [facility] MCH (RBC) [Entitic mass] 30.6 pg 27.0-32.0 [facility] Nucleated RBC/100 WBC (Bld) [Ratio] 0 % 0-5 [facility] MCHC Auto (RBC) [Mass/Vol]Or dered By: HEALTH ASSESSMENT on 03-23-2023 MCHC (RBC) [Mass/Vol] 33.6 g/dL 32-36 [facility] No Panel InformationOrdered By: HEALTH ASSESSMENT on 03-23-2023 Estimated GFR (MDRD) Amer 112 mL/min >60 [facility] Comment on above: GFR Calc Estimated GFR (MDRD) Non-Af Amer 92 mL/min >60 [facility] Comment on above: Non- GFR Calc No Panel InformationOrdered By: Winifred Pedro on 03-23-2023 Insulin Level 9.2 mU/L 2.6-37.6 [facility] Platelets bldOrdered By: SAMY LT ASSESSMENT on 03-23-2023 Platelets (Bld) [#/Vol] 316 10*3/uL 150-450 [facility] Segmented neutrophils/100 WB C Auto (Bld)Ordered By: HEALTH ASSESSMENT on 03-23-2023 Segmented neutrophils/100 WBC (Bld) 54.6 % 47-70 [facility] Serum or plasma albumin jessee urement (mass/volume)Ordered By: HEALTH ASSESSMENT on 03-23-2023 Albumin [Mass/Vol] 3.6 g/dL 3.2-5.0 [facility] Serum or plasma albumin/glob ulin mass ratioOrdered By: HEALTH ASSESSMENT on 03-23-2023 Albumin/Globulin [Mass ratio] 1.0 {ratio} 0.9-2.4 [facility] Serum or plasma calcium jessee urement (mass/volume)Ordered By: HEALTH ASSESSMENT on 03-23-2023 Calcium [Mass/Vol] 9.1 mg/dL 8.5-10.1 [facility] Serum or plasma cholesterol in HDL measurement (mass/volume)Ordered By: HEALTH ASSESSMENT on 03-23-2023 Cholesterol in HDL [Mass/Vol] 76 mg/dL >40 [facility] Comment on above: The drugs N-Acetylcy steine and Metamizole may falsely depress this assay. Reference Range HDL <40 mg/dL Low HDL Cholesterol HDL >or= 60 mg/dL High HDL Cholesterol Serum or plasma cholesterol in VLDL measurement (mass/volume)Ordered By: HEALTH ASSESSMENT on 03-23-2023 Cholesterol in VLDL [Mass/Vol] 13 mg/dL 5-40 [facility] Serum or plasma creatinine m easurement (mass/volume)Ordered By: HEALTH ASSESSMENT on 03-23-2023 Creatinine [Mass/Vol] 0.73 mg/dL 0.55-1.02 [facility] Comment on above: The validity of the calculated GFR & GFRAA in patients over 70 years has not been determined. Clinical correlation is essential. Serum or plasma low density lipoprotein (LDL) cholesterol measurement (mass/volume)Ordered By: HEALTH ASSESSMENT on 03-23-2023 Cholesterol in LDL [Mass/Vol] 102 mg/dL 0-130 [facility] Serum or plasma urea nitroge n measurement (mass/volume)Ordered By: HEALTH ASSESSMENT on 03-23-2023 Urea nitrogen [Mass/Vol] 14 mg/dL 7-18 [facility] Serum or plasma uric acid me asurement (mass/volume)Ordered By: HEALTH ASSESSMENT on 03-23-2023 Urate [Mass/Vol] 3.5 mg/dL 2.6-6.0 [facility] Comment on above: The drugs N-Acetylcy steine and Metamizole may falsely depress this assay. Thin prep Papanicolaou smear with manual screeningOrdered By: HEALTH ASSESSMENT on 03-23-2023 Thin prep Papanicolaou smear with manual screening 14 U/L 15-37 [facility] Thin prep Papanicolaou smear with manual screening 4 5-15 [facility] Basophil percentageOrdered B y: Dr. Gallego on 10-19-2022 Cholesterol [Mass/Vol] 215 mg/dL <200 [facility] Comment on above: <200 mg/dL Desirable 200-240 mg/dL Borderline >240 mg/dL High Risk Triglyceride [Mass/Vol] 99 mg/dL <199 [facility] Comment on above: The drugs N-Acetylcy steine and Metamizole may falsely depress this assay.Serum Triglycerides Reference Interval Normal <150 mg/dL Borderline high 150 - 199 mg/dL High 200 - 499 mg/dL Very High > or = 500 mg/dL Serum or plasma cholesterol in HDL measurement (mass/volume)Ordered By: Dr. Gallego on 10-19-2022 Cholesterol in HDL [Mass/Vol] 76 mg/dL >40 [facility] Comment on above: The drugs N-Acetylcy steine and Metamizole may falsely depress this assay. Reference Range HDL <40 mg/dL Low HDL Cholesterol HDL >or= 60 mg/dL High HDL Cholesterol Serum or plasma cholesterol in VLDL measurement (mass/volume)Ordered By: Dr. Gallego on 10-19-2022 Cholesterol in VLDL [Mass/Vol] 20 mg/dL 5-40 [facility] Serum or plasma low density lipoprotein (LDL) cholesterol measurement (mass/volume)Ordered By: Dr. Gallego on 10-19-2022 Cholesterol in LDL [Mass/Vol] 119 mg/dL 0-130 [facility] Laboratory - Chemistry and C hemistry - challengeOrdered By: Lizzy Riley on 08-09-2022 Free T4 [Mass/Vol] 0.89 ng/dL 0.76-1.46 [facility] No Panel InformationOrdered By: Lizzy Riley on 08-09-2022 Follicle Stimulating Hormone 7.7 mIU/mL [facility] Comment on above: NORMAL REFERENCE RAN GES FEMALE FOLLICULAR 2.3 - 12.6 mIU/mL MID-CYCLE PEAK 5.2 - 17.5 mIU/mL LUTEAL 1.7 - 12.9 mIU/mL POST-MENOPAUSAL ON MHT 5.9 - 72.8 mIU/mL NOT ON MHT 12.7 - 132.2 mlU/mL MALE 0.7 - 10.8 mIU/mL Thyroid Stimulating Hormone (TSH) 1.94 uIU/mL 0.358-3.74 [facility] Serum or plasma 17-hydroxypr ogesterone measurement (mass/volume)Ordered By: Lizzy Riley on 08-09-2022 17-Hydroxyprogesterone [Mass/Vol] 20 ng/dL . [facility] Comment on above: Adult Female Follicu lar 15 - 70 Luteal 35 - 290Performed at: - [facility] [id number] [place], [place] [id number] Director: Nino Otero MD, Phone: [phone] Serum or plasma cortisol jim surement (mass/volume)Ordered By: Lizzy Riley on 08-09-2022 Cortisol [Mass/Vol] 8.80 ug/dL 3.44-22.45 [facility] Comment on above: Adult (AM) 5.27 - 22 .45 ug/dL Adult (PM) 3.44 - 16.76 ug/dLPlease note revised CORTISOL reference range effective 2019. Serum or plasma estradiol (E 2) measurement (mass/volume)Ordered By: Lizzy Riley on 08-09-2022 E2 [Mass/Vol] 67.5 pg/mL [facility] Comment on above: NORMAL REFERENCE RAN [...] 08-09-2022 Testosterone Free [Mass/Vol] 4.4 pg/mL 0.0-4.2 [facility] Comment on above: Performed at: [address] [id number] Director: Nino Otero MD, Phone: [phone] Whole blood hemoglobin A1c/t otal hemoglobin ratio (mass fraction)Ordered By: Lizzy Riley on 08-09-2022 HbA1c (Bld) [Mass fraction] 5.0 % 3.8-5.6 [facility] Comment on above: Normal < 5.7 % Predi abetic 5.7 - 6.4 % Diabetic >or= 6.5 % Please note range changes. Basophil percentageOrdered B y: Dr. Frederick on 06-10-2022 Bilirubin [Mass/Vol] 0.40 mg/dL 0.20-1.00 [facility] Comment on above: For patients on eltr ombopag therapy, use of Dimension [place] TBIL is not recommended. Chloride [Moles/Vol] 101 mmol/L 98-107 [facility] Glucose [Mass/Vol] 91 mg/dL 74-106 [facility] Potassium [Moles/Vol] 3.5 mmol/L 3.5-5.1 [facility] Protein [Mass/Vol] 7.4 g/dL 6.4-8.2 [facility] Sodium [Moles/Vol] 136 mmol/L 136-145 [facility] WBC (Bld) [#/Vol] 7.4 10*3/uL 4.4-11.0 [facility] Blood erythrocytes count (nu mber/volume)Ordered By: Dr. Frederick on 06-10-2022 RBC (Bld) [#/Vol] 4.81 10*6/uL 4.2-5.4 [facility] Blood hemoglobin measurement (mass/volume)Ordered By: Dr. Frederick on 06-10-2022 Hemoglobin (Bld) [Mass/Vol] 14.9 g/dL 12.0-15.0 [facility] Blood platelet mean volumeOr dered By: Dr. Frederick on 06-10-2022 Platelet mean volume (Bld) [Entitic vol] 9.9 fL 6.2-12.0 [facility] Determination of erythrocyte mean corpuscular volume (MCV)Ordered By: Dr. Frederick on 06-10-2022 MCV (RBC) [Entitic vol] 90.4 fL 81-99 [facility] Hematocrit Auto (Bld) [Volum e fraction]Ordered By: Dr. Frederick on 06-10-2022 Hematocrit (Bld) [Volume fraction] 43.5 % 37-47 [facility] Laboratory - Chemistry and C hemistry - challengeOrdered By: Dr. Frederick on 06-10-2022 ALP [Catalytic activity/Vol] 70 U/L 45-117 [facility] ALT [Catalytic activity/Vol] 36 U/L 13-56 [facility] CO2 [Moles/Vol] 28.0 mmol/L 21.0-32.0 [facility] Globulin (S) [Mass/Vol] 3.6 g/dL 2.2-4.2 [facility] Magnesium [Mass/Vol] 2.2 mg/dL 1.6-2.6 [facility] Urea nitrogen/Creatinine [Mass ratio] 34.4 mg/mg 10-20 [facility] Laboratory - Hematology and Cell countsOrdered By: Dr. Frederick on 06-10-2022 Erythrocyte distribution width (RBC) [Entitic vol] 41.9 fL 35.1-43.9 [facility] Erythrocyte distribution width (RBC) [Ratio] 12.5 % 11.6-14.6 [facility] MCH (RBC) [Entitic mass] 31.0 pg 27.0-32.0 [facility] MCHC Auto (RBC) [Mass/Vol]Or dered By: Dr. Frederick on 06-10-2022 MCHC (RBC) [Mass/Vol] 34.3 g/dL 32-36 [facility] No Panel InformationOrdered By: Dr. Frederick on 06-10-2022 Estimated GFR (MDRD) Amer 107 mL/min >60 [facility] Comment on above: GFR Calc Estimated GFR (MDRD) Non-Af Amer 89 mL/min >60 [facility] Comment on above: Non- GFR Calc Vitamin D 25-Hydroxy 64.8 ng/mL [facility] Comment on above: Vitamin D 25(OH) Sta tus Range Deficiency <20 ng/mL (50nmol/L) Insufficiency 20 - 30 ng/mL (50 - 75 nmol/L) Sufficiency 30 - 100 ng/mL (75 - 250 nmol/L) Toxicity >100 ng/mL (>250 nmol/L) Platelets bldOrdered By: Dr. Frederick on 06-10-2022 Platelets (Bld) [#/Vol] 331 10*3/uL 150-450 [facility] Serum or plasma albumin jessee urement (mass/volume)Ordered By: Dr. Frederick on 06-10-2022 Albumin [Mass/Vol] 3.8 g/dL 3.2-5.0 [facility] Serum or plasma albumin/glob ulin mass ratioOrdered By: Dr. Frederick on 06-10-2022 Albumin/Globulin [Mass ratio] 1.1 {ratio} 0.9-2.4 [facility] Serum or plasma calcium jessee urement (mass/volume)Ordered By: Dr. Frederick on 06-10-2022 Calcium [Mass/Vol] 8.9 mg/dL 8.5-10.1 [facility] Serum or plasma creatinine m easurement (mass/volume)Ordered By: Dr. Frederick on 06-10-2022 Creatinine [Mass/Vol] 0.76 mg/dL 0.55-1.02 [facility] Comment on above: The validity of the calculated GFR & GFRAA in patients over 70 years has not been determined. Clinical correlation is essential. Serum or plasma urea nitroge n measurement (mass/volume)Ordered By: Dr. Frederick on 06-10-2022 Urea nitrogen [Mass/Vol] 26 mg/dL 7-18 [facility] Thin prep Papanicolaou smear with manual screeningOrdered By: Dr. Frederick on 06-10-2022 Thin prep Papanicolaou smear with manual screening 17 U/L 15-37 [facility] Thin prep Papanicolaou smear with manual screening 7 5-15 [facility] Laboratory - Microbiology an d Antimicrobial susceptibilityon 02-27-2022 SARS-CoV-2 (COVID-19) RNA RANJIT+probe Ql (Unsp spec) Detected [facility] Basophil percentageon 2021 Bilirubin [Mass/Vol] 0.30 mg/dL 0.20-1.00 [facility] Work Phone: Comment on above: For patients on eltr ombopag therapy, use of Dimension [place] TBIL is not recommended. Chloride [Moles/Vol] 105 mmol/L 98-107 [facility] Work Phone: [phone] Glucose [Mass/Vol] 92 mg/dL 74-106 [facility] Work Phone: [phone] Potassium [Moles/Vol] 4.1 mmol/L 3.5-5.1 [facility] Work Phone: Protein [Mass/Vol] 7.0 g/dL 6.4-8.2 [facility] Work Phone: Sodium [Moles/Vol] 138 mmol/L 136-145 [facility] Work Phone: WBC (Bld) [#/Vol] 5.1 10*3/uL 4.4-11.0 [facility] Work [facility]: Blood erythrocytes count (nu mber/volume)on 02-11-2022 RBC (Bld) [#/Vol] 4.48 10*6/uL 4.2-5.4 [facility] Work Phone: Blood hemoglobin measurement (mass/volume)on 02-11-2022 Hemoglobin (Bld) [Mass/Vol] 14.1 g/dL 12.0-15.0 [facility] Work Phone: Blood platelet mean volumeon 02-11-2022 Platelet mean volume (Bld) [Entitic vol] 10.4 fL 6.2-12.0 [facility] Work Phone: Determination of erythrocyte mean corpuscular volume (MCV)on 02-11-2022 MCV (RBC) [Entitic vol] 93.8 fL 81-99 [facility] Work Phone: Hematocrit Auto (Bld) [Volum e fraction]on 02-11-2022 Hematocrit (Bld) [Volume fraction] 42.0 % 37-47 [facility] Work Phone: Laboratory - Chemistry and C hemistry - challengeon 02-11-2022 ALP [Catalytic activity/Vol] 59 U/L 45-117 [facility] Work Phone: ALT [Catalytic activity/Vol] 33 U/L 13-56 [facility] Work Phone: CO2 [Moles/Vol] 25.0 mmol/L 21.0-32.0 [facility] Work Phone: Globulin (S) [Mass/Vol] 3.4 g/dL 2.2-4.2 [facility] Work Phone: Urea nitrogen/Creatinine [Mass ratio] 37.0 mg/mg 10-20 [facility] Work Phone: Laboratory - Hematology and Cell countson 02-11-2022 Erythrocyte distribution width (RBC) [Entitic vol] 42.4 fL 35.1-43.9 [facility] Work Phone: Erythrocyte distribution width (RBC) [Ratio] 12.2 % 11.6-14.6 [facility] Work Phone: MCH (RBC) [Entitic mass] 31.5 pg 27.0-32.0 [facility] Work Phone: MCHC Auto (RBC) [Mass/Vol]on 02-11-2022 MCHC (RBC) [Mass/Vol] 33.6 g/dL 32-36 [facility] Work Phone: No Panel Informationon 02-11 Estimated GFR (MDRD) Amer 112 mL/min >60 [facility] Work Phone: Comment on above: GFR Calc Estimated GFR (MDRD) Non-Af Amer 92 mL/min >60 [facility] Work Phone: Comment on above: Non- GFR Calc Vitamin D 25-Hydroxy 28.3 ng/mL [facility] Work Phone: Comment on above: Vitamin D 25(OH) Sta tus Range Deficiency <20 ng/mL (50nmol/L) Insufficiency 20 - 30 ng/mL (50 - 75 nmol/L) Sufficiency 30 - 100 ng/mL (75 - 250 nmol/L) Toxicity >100 ng/mL (>250 nmol/L) Platelets bldon 02-11-2022 Platelets (Bld) [#/Vol] 298 10*3/uL 150-450 [facility] Work Phone: Serum or plasma albumin jessee urement (mass/volume)on 02-11-2022 Albumin [Mass/Vol] 3.6 g/dL 3.2-5.0 [facility] Work Phone: Serum or plasma albumin/glob ulin mass ratioon 02-11-2022 Albumin/Globulin [Mass ratio] 1.1 {ratio} 0.9-2.4 [facility] Work Phone: Serum or plasma calcium jessee urement (mass/volume)on 02-11-2022 Calcium [Mass/Vol] 8.8 mg/dL 8.5-10.1 [facility] Work Phone: Serum or plasma creatinine m easurement (mass/volume)on 02-11-2022 Creatinine [Mass/Vol] 0.73 mg/dL 0.55-1.02 [facility] Work Phone: Comment on above: The validity of the calculated GFR & GFRAA in patients over 70 years has not been determined. Clinical correlation is essential. Serum or plasma ferritin jim surement (mass/volume)on 02-11-2022 Ferritin [Mass/Vol] 66 ng/mL 8- [facility] Work Phone: Serum or plasma urea nitroge n measurement (mass/volume)on 02-11-2022 Urea nitrogen [Mass/Vol] 27 mg/dL 7-18 [facility] Work Phone: Thin prep Papanicolaou smear with manual screeningon 02-11-2022 Thin prep Papanicolaou smear with manual screening 18 U/L 15-37 [facility] Work Phone: Thin prep Papanicolaou smear with manual screening 8 5-15 [facility] Work Phone: Absolute lymphocyte counton 10-01-2021 Lymphocytes Auto (Unsp spec) [#/Vol] 2.36 10*3/uL 0.83-4.51 [facility] Work Phone: Absolute reticulocyte counto n 10-01-2021 Reticulocytes (Bld) [#/Vol] 0.00 10*3/uL 0-5 [facility] Work Phone: Basophil percentageon 2021 Basophil percentage 3.4 mg/dL 2.5-4.9 [facility] Work Phone: Bilirubin [Mass/Vol] 0.60 mg/dL 0.20-1.00 [facility] Work Phone: Comment on above: For patients on eltr ombopag therapy, use of Dimension [place] TBIL is not recommended. Chloride [Moles/Vol] 104 mmol/L 98-107 [facility] Work Phone: Cholesterol [Mass/Vol] 179 mg/dL <200 [facility] Work Phone: Comment on above: <200 mg/dL Desirable 200-240 mg/dL Borderline >240 mg/dL High Risk Glucose [Mass/Vol] 91 mg/dL 74-106 [facility] Work Phone: Neutrophils (Bld) [#/Vol] 2.8 10*3/uL 2.0-7.7 [facility] Work Phone: Potassium [Moles/Vol] 3.5 mmol/L 3.5-5.1 [facility] Work Phone: Protein [Mass/Vol] 7.1 g/dL 6.4-8.2 [facility] Work Phone: Sodium [Moles/Vol] 137 mmol/L 136-145 [facility] Work Phone: Triglyceride [Mass/Vol] 102 mg/dL <199 [facility] Work Phone: Comment on above: The drugs N-Acetylcy steine and Metamizole may falsely depress this assay.Serum Triglycerides Reference Interval Normal <150 mg/dL Borderline high 150 - 199 mg/dL High 200 - 499 mg/dL Very High > or = 500 mg/dL WBC (Bld) [#/Vol] 5.8 10*3/uL 4.4-11.0 [facility] Work Phone: Blood erythrocytes count (nu mber/volume)on 10-01-2021 RBC (Bld) [#/Vol] 4.68 10*6/uL 4.2-5.4 [facility] Work Phone: Blood hemoglobin measurement (mass/volume)on 10-01-2021 Hemoglobin (Bld) [Mass/Vol] 14.5 g/dL 12.0-15.0 [facility] Work Phone: Blood platelet mean volumeon 10-01-2021 Platelet mean volume (Bld) [Entitic vol] 10.5 fL 6.2-12.0 [facility] Work Phone: Determination of erythrocyte mean corpuscular volume (MCV)on 10-01-2021 MCV (RBC) [Entitic vol] 92.3 fL 81-99 [facility] Work Phone: Direct bilirubinon 2 Bilirubin.direct [Mass/Vol] 0.16 mg/dL 0.00-0.30 [facility] Work Phone: Hematocrit Auto (Bld) [Volum e fraction]on 10-01-2021 Hematocrit (Bld) [Volume fraction] 43.2 % 37-47 [facility] Work Phone: Laboratory - Chemistry and C hemistry - challengeon 10-01-2021 ALP [Catalytic activity/Vol] 56 U/L 45-117 [facility] Work Phone: ALT [Catalytic activity/Vol] 21 U/L 13-56 [facility] Work Phone: Cholesterol.total/Choles terol in HDL [Mass ratio] 2.10 {ratio} [facility] Work Phone: CO2 [Moles/Vol] 28.0 mmol/L 21.0-32.0 [facility] Work Phone: Globulin (S) [Mass/Vol] 3.3 g/dL 2.2-4.2 [facility] Work Phone: Urea nitrogen/Creatinine [Mass ratio] 15.4 mg/mg 10-20 [facility] Work Phone: Laboratory - Hematology and Cell countson 10-01-2021 Erythrocyte distribution width (RBC) [Entitic vol] 41.5 fL 35.1-43.9 [facility] Work Phone: Erythrocyte distribution width (RBC) [Ratio] 12.3 % 11.6-14.6 [facility] Work Phone: MCH (RBC) [Entitic mass] 31.0 pg 27.0-32.0 [facility] Work Phone: Nucleated RBC/100 WBC (Bld) [Ratio] 0 % 0-5 [facility] Work Phone: MCHC Auto (RBC) [Mass/Vol]on 10-01-2021 MCHC (RBC) [Mass/Vol] 33.6 g/dL 32-36 [facility] Work Phone: No Panel Informationon 10-01 Estimated GFR (MDRD) Amer 104 mL/min >60 [facility] Work Phone: Comment on above: GFR Calc Estimated GFR (MDRD) Non-Af Amer 86 mL/min >60 [facility] Work Phone: Comment on above: Non- GFR Calc Platelets bldon 10-01-2021 Platelets (Bld) [#/Vol] 261 10*3/uL 150-450 [facility] Work Phone: Segmented neutrophils/100 WB C Auto (Bld)on 10-01-2021 Segmented neutrophils/100 WBC (Bld) 48.7 % 47-70 [facility] Work Phone: Serum or plasma albumin jessee urement (mass/volume)on 10-01-2021 Albumin [Mass/Vol] 3.8 g/dL 3.2-5.0 [facility] Work Phone: Serum or plasma albumin/glob ulin mass ratioon 10-01-2021 Albumin/Globulin [Mass ratio] 1.2 {ratio} 0.9-2.4 [facility] Work Phone: Serum or plasma calcium jessee urement (mass/volume)on 10-01-2021 Calcium [Mass/Vol] 8.7 mg/dL 8.5-10.1 [facility] Work Phone: Serum or plasma cholesterol in HDL measurement (mass/volume)on 10-01-2021 Cholesterol in HDL [Mass/Vol] 85 mg/dL >40 [facility] Work Phone: Comment on above: The drugs N-Acetylcy steine and Metamizole may falsely depress this assay. Reference Range HDL <40 mg/dL Low HDL Cholesterol HDL >or= 60 mg/dL High HDL Cholesterol Serum or plasma cholesterol in VLDL measurement (mass/volume)on 10-01-2021 Cholesterol in VLDL [Mass/Vol] 20 mg/dL 5-40 [facility] Work Phone: Serum or plasma creatinine m easurement (mass/volume)on 10-01-2021 Creatinine [Mass/Vol] 0.78 mg/dL 0.55-1.02 [facility] Work Phone: Comment on above: The validity of the calculated GFR & GFRAA in patients over 70 years has not been determined. Clinical correlation is essential. Serum or plasma low density lipoprotein (LDL) cholesterol measurement (mass/volume)on 10-01-2021 Cholesterol in LDL [Mass/Vol] 74 mg/dL 0-130 [facility] Work Phone: Serum or plasma urea nitroge n measurement (mass/volume)on 10-01-2021 Urea nitrogen [Mass/Vol] 12 mg/dL 7-18 [facility] Work Phone: Serum or plasma uric acid me asurement (mass/volume)on 10-01-2021 Urate [Mass/Vol] 3.5 mg/dL 2.6-6.0 [facility] Work Phone: Comment on above: The drugs N-Acetylcy steine and Metamizole may falsely depress this assay. Thin prep Papanicolaou smear with manual screeningon 10-01-2021 Thin prep Papanicolaou smear with manual screening 14 U/L 15-37 [facility] Work Phone: Thin prep Papanicolaou smear with manual screening 5 5-15 [facility] Work Phone: Thin prep Papanicolaou smear with manual screening 162 U/L 84-246 [facility] Work Phone: Absolute lymphocyte counton 08-10-2021 Lymphocytes Auto (Unsp spec) [#/Vol] 2.80 10*3/uL 0.83-4.51 [facility] Work Phone: Basophil percentageon 2021 Basophil percentage Not Reportable [facility] Work Phone: Basophils/100 WBC (Bld) 0.9 % 0-1 [facility] Work Phone: Bilirubin [Mass/Vol] 0.50 mg/dL 0.20-1.00 [facility] Work Phone: Comment on above: For patients on eltr ombopag therapy, use of Dimension [place] TBIL is not recommended. Chloride [Moles/Vol] 103 mmol/L 98-107 [facility] Work Phone: Eosinophils/100 WBC (Bld) 1.1 % 0-5 [facility] Work Phone: Glucose [Mass/Vol] 93 mg/dL 74-106 [facility] Work Phone: Neutrophils (Bld) [#/Vol] 3.9 10*3/uL 2.0-7.7 [facility] Work Phone: Neutrophils/100 WBC (Bld) 53.0 % 47-70 [facility] Work Phone: Potassium [Moles/Vol] 4.1 mmol/L 3.5-5.1 [facility] Work Phone: Protein [Mass/Vol] 7.7 g/dL 6.4-8.2 [facility] Work Phone: [phone] Sodium [Moles/Vol] 136 mmol/L 136-145 [facility] Work Phone: WBC (Bld) [#/Vol] 7.4 10*3/uL 4.4-11.0 [facility]: Blood erythrocytes count (nu mber/volume)on 08-10-2021 RBC (Bld) [#/Vol] 4.91 10*6/uL 4.2-5.4 [facility] Work [facility]: Blood hemoglobin measurement (mass/volume)on 08-10-2021 Hemoglobin (Bld) [Mass/Vol] 15.6 g/dL 12.0-15.0 [facility] Work Phone: Blood lymphocytes/100 leukoc yteson 08-10-2021 Lymphocytes/100 WBC (Bld) 37.6 % 19-41 [facility] Work Phone: Blood monocytes/100 leukocyt eson 08-10-2021 Monocytes/100 WBC (Bld) 7.1 % 0-10 [facility] Work Phone: Blood platelet mean volumeon 08-10-2021 Platelet mean volume (Bld) [Entitic vol] 10.0 fL 6.2-12.0 [facility] Work Phone: Determination of erythrocyte mean corpuscular volume (MCV)on 08-10-2021 MCV (RBC) [Entitic vol] 91.2 fL 81-99 [facility] Work Phone: Hematocrit Auto (Bld) [Volum e fraction]on 08-10-2021 Hematocrit (Bld) [Volume fraction] 44.8 % 37-47 [facility] Work Phone: Laboratory - Chemistry and C hemistry - challengeon 08-10-2021 ALP [Catalytic activity/Vol] 66 U/L 45-117 [facility] Work Phone: ALT [Catalytic activity/Vol] 34 U/L 13-56 [facility] Work Phone: CO2 [Moles/Vol] 28.0 mmol/L 21.0-32.0 [facility] Work Phone: Globulin (S) [Mass/Vol] 3.5 g/dL 2.2-4.2 [facility] Work Phone: Urea nitrogen/Creatinine [Mass ratio] 22.3 mg/mg 10-20 [facility] Work Phone: Laboratory - Hematology and Cell countson 08-10-2021 Erythrocyte distribution width (RBC) [Entitic vol] 39.8 fL 35.1-43.9 [facility] Work Phone: Erythrocyte distribution width (RBC) [Ratio] 11.9 % 11.6-14.6 [facility] Work Phone: Immature granulocytes/100 WBC (Bld) 0.300 % 0.0-0.9 [facility] Work Phone: Comment on above: IG% - Immature Granu locytes (promyelocytes, myelocytes and metamyelocytes) > 1% indicates that a LEFT SHIFT is Present. MCH (RBC) [Entitic mass] 31.8 pg 27.0-32.0 [facility] Work Phone: Nucleated RBC/100 WBC (Bld) [Ratio] 0 % 0-5 [facility] Work Phone: MCHC Auto (RBC) [Mass/Vol]on 08-10-2021 MCHC (RBC) [Mass/Vol] 34.8 g/dL 32-36 [facility] Work Phone: No Panel Informationon 08-10 Anti-Nuclear Antibody Screen Negative Negative [facility] Work Phone: Comment on above: Performed at: [address] [id number] Director: Elan Kirkland PhD, Phone: [phone] [employer] Antibody Not Reportable [facility] Work Phone: Estimated GFR (MDRD) Amer 107 mL/min >60 [facility] Work Phone: Comment on above: GFR Calc Estimated GFR (MDRD) Non-Af Amer 88 mL/min >60 [facility] Work Phone: Comment on above: Non- GFR Calc [employer] Antibody Not Reportable [facility] Work Phone: Thyroid Stimulating Hormone (TSH) 2.53 uIU/mL 0.358-3.74 [facility] Work Phone: Platelets bldon 08-10-2021 Platelets (Bld) [#/Vol] 320 10*3/uL 150-450 [facility] Work Phone: Serum DNA double strand anti body assay (units/volume)on 08-10-2021 DNA double strand Ab Qn (S) Not Reportable [facility] Work Phone: Serum Miranda-1 antibody assay (u nits/volume)on 08-10-2021 Miranda-1 extractable nuclear Ab Qn (S) Not Reportable [facility] Work Phone: Serum Scl-70 extractable nuc lear antibody assay (units/volume)on 08-10-2021 SCL-70 extractable nuclear Ab Qn (S) Not Reportable [facility] Work Phone: Serum Bergman extractable nucl ear antibody detectionon 08-10-2021 Bergman extractable nuclear Ab Ql (S) Not Reportable [facility] Work Phone: Serum or plasma albumin jessee urement (mass/volume)on 08-10-2021 Albumin [Mass/Vol] 4.2 g/dL 3.2-5.0 [facility] Work Phone: Serum or plasma albumin/glob ulin mass ratioon 08-10-2021 Albumin/Globulin [Mass ratio] 1.2 {ratio} 0.9-2.4 [facility] Work Phone: Serum or plasma calcium jessee urement (mass/volume)on 08-10-2021 Calcium [Mass/Vol] 8.9 mg/dL 8.5-10.1 [facility] Work Phone: Serum or plasma creatinine m easurement (mass/volume)on 08-10-2021 Creatinine [Mass/Vol] 0.76 mg/dL 0.55-1.02 [facility] Work Phone: Comment on above: The validity of the calculated GFR & GFRAA in patients over 70 years has not been determined. Clinical correlation is essential. Serum or plasma urea nitroge n measurement (mass/volume)on 08-10-2021 Urea nitrogen [Mass/Vol] 17 mg/dL 7-18 [facility] Work Phone: Serum rheumatoid factor dete ctionon 08-10-2021 Rheumatoid factor Ql (S) < 10.0 IU/mL <15 [facility] Work Phone: Thin prep Papanicolaou smear with manual screeningon 08-10-2021 Thin prep Papanicolaou smear with manual screening 17 U/L 15-37 [facility] Work Phone: Thin prep Papanicolaou smear with manual screening 5 5-15 [facility] Work Phone: Vital Signs Date Time Vital Sign Value Performing Clinician Facility 12-10-2024 08:08-0400 Body height 157.[address] Winifred Pedro MD Work Phone: [facility] 12-10-2024 08:08-0400 Body mass index (BMI) [Ratio] 26.8 kg/m2 Dr. Winifred Pedro MD Work Phone: [facility] 12-10-2024 08:08-0400 Body temperature 98.6 [degF] Dr. Winifred Pedro MD Work Phone: [facility] 12-10-2024 08:08-0400 Body weight 66.[address] Winifred Pedro MD Work Phone: [facility] 12-10-2024 08:08-0400 Diastolic blood pressure 84 mm[Hg] Dr. Winifred Pedro MD Work Phone: [facility] 12-10-2024 08:08-0400 Heart rate 60 /min Dr. Winifred Pedro MD Work Phone: [facility] 12-10-2024 08:08-0400 Respiratory rate 16 /min Dr. Winifred Pedro MD Work Phone: [facility] 12-10-2024 08:08-0400 SaO2% (BldA) [Mass fraction] 96 % Dr. Winifred Pedro MD Work Phone: [facility] 12-10-2024 08:08-0400 Systolic blood pressure 122 mm[Hg] Dr. Winifred Pedro MD Work Phone: [facility] 11-08-2024 08:06-0400 Body height 154.[address] Winifred Pedro MD Work Phone: [facility] 11-08-2024 08:06-0400 Body mass index (BMI) [Ratio] 27.6 kg/m2 Dr. Winifred Pedro MD Work Phone: [facility] 11-08-2024 08:06-0400 Body weight 66.[address] Winifred Pedro MD Work Phone: [facility] 11-08-2024 08:06-0400 Diastolic blood pressure 82 mm[Hg] Dr. Winifred Pedro MD Work Phone: [facility] 11-08-2024 08:06-0400 Systolic blood pressure 128 mm[Hg] Dr. Winifred Pedro MD Work Phone: [facility] 09-14-2024 14:45-0400 Body temperature 97.5 [degF] Dr. Winifred Pedro MD Work Phone: [facility] 09-14-2024 14:45-0400 Diastolic blood pressure 91 mm[Hg] Dr. Winifred Pedro MD Work Phone: [facility] 09-14-2024 14:45-0400 Heart rate 67 /min Dr. Winifred Pedro MD Work Phone: [facility] 09-14-2024 14:45-0400 Respiratory rate 18 /min Dr. Winifred Pedro MD Work Phone: [facility] 09-14-2024 14:45-0400 SaO2% (BldA) [Mass fraction] 96 % Dr. Winifred Pedro MD Work Phone: [facility] 09-14-2024 14:45-0400 Systolic blood pressure 129 mm[Hg] Dr. Winifred Pedro MD Work Phone: [facility] 09-14-2024 13:28-0400 Body height 154.[address] Winifred Pedro MD Work Phone: [facility] 09-14-2024 13:28-0400 Body mass index (BMI) [Ratio] 28.7 kg/m2 Dr. Winifred Pedro MD Work Phone: [facility] 09-14-2024 13:28-0400 Body weight 68.[address] Winifred Pedro MD Work Phone: [facility] 06-11-2024 08:07-0500 Body mass index (BMI) [Ratio] 27.6 kg/m2 Dr. Winifred Pedro MD Work Phone: [facility] 06-11-2024 08:07-0500 Body temperature 98.4 [degF] Dr. Winifred Pedro MD Work Phone: [facility] 06-11-2024 08:07-0500 Body weight 68.[address] Winifred Pedro MD Work Phone: [facility] 06-11-2024 08:07-0500 Diastolic blood pressure 84 mm[Hg] Dr. Winifred Pedro MD Work Phone: [facility] 06-11-2024 08:07-0500 Heart rate 68 /min Dr. Winifred Pedro MD Work Phone: [facility] 06-11-2024 08:07-0500 Respiratory rate 16 /min Dr. Winifred Pedro MD Work Phone: [facility] 06-11-2024 08:07-0500 SaO2% (BldA) [Mass fraction] 96 % Dr. Winifred Pedro MD Work Phone: [facility] 06-11-2024 08:07-0500 Systolic blood pressure 130 mm[Hg] Dr. Winifred Pedro MD Work Phone: [facility] 06-13-2023 08:16-0500 Body height 157.[address] Stewart Frederick Work Phone: 9(278)260-696215 [place] [address] 06-13-2023 08:16-0500 Body mass index (BMI) [Ratio] 27.6 kg/m2 Dr. Stewart Frederick Work Phone: 7(824)658-031215 [place] [address] 06-13-2023 08:16-0500 Body temperature 97.8 [degF] Dr. Stewart Frederick Work Phone: 8(800)721-407815 [place] [address] 06-13-2023 08:16-0500 Body weight 68.[address] Stewart Frederick Work Phone: 1(772)408-205115 [place] [address] 06-13-2023 08:16-0500 Diastolic blood pressure 80 mm[Hg] Dr. Stewart Frederick Work Phone: 6(053)416-947515 [place] [address] 06-13-2023 08:16-0500 Heart rate 66 /min Dr. Stewart Frederick Work Phone: 8(139)052-934515 [place] [address] 06-13-2023 08:16-0500 Respiratory rate 16 /min Dr. Stewart Frederick Work Phone: 9(380)463-891815 [place] [address] 06-13-2023 08:16-0500 SaO2% (BldA) [Mass fraction] 96 % Dr. Stewart Frederick Work Phone: [facility] 06-13-2023 08:16-0500 Systolic blood pressure 122 mm[Hg] Dr. Stewart Frederick Work Phone: 9(350)017-624142 [place] [address] 05-13-2023 13:39-0500 Body mass index (BMI) [Ratio] 27.6 kg/m2 Dr. Stewart Frederick Work Phone: 9(304)560-624315 [place] [address] 05-13-2023 13:39-0500 Body weight 68.[address] Stewart Frederick Work Phone: 8(613)512-197015 [place] [address] 05-13-2023 13:39-0500 Diastolic blood pressure 85 mm[Hg] Dr. Stewart Frederick Work Phone: 5(764)642-244615 [place] [address] 05-13-2023 13:39-0500 Heart rate 63 /min Dr. Stewart Frederick Work Phone: 9(413)520-136515 [place] [address] 05-13-2023 13:39-0500 Systolic blood pressure 129 mm[Hg] Dr. Stewart Frederick Work Phone: 7(769)339-573215 [place] [address] 03-29-2023 11:49-0400 Body mass index (BMI) [Ratio] 28 kg/m2 Dr. Stewart Frederick Work Phone: 0(670)332-115915 [place] [address] 03-29-2023 11:49-0400 Body weight 69.[address] Stewart Frederick Work Phone: 8(567)270-575615 [place] [address] 03-29-2023 11:49-0400 Diastolic blood pressure 80 mm[Hg] Dr. Stewart Frederick Work Phone: 3(838)874-221615 [place] [address] 03-29-2023 11:49-0400 Heart rate 59 /min Dr. Stewart Frederick Work Phone: 3(113)227-522815 [place] [address] 03-29-2023 11:49-0400 Systolic blood pressure 124 mm[Hg] Dr. Stewart Frederick Work Phone: 5(224)364-929715 [place] [address] 02-21-2023 13:03-0400 Body height 157.[address] Stewart Frederick Work Phone: 6(798)658-331215 [place] [address] 02-21-2023 12:59-0400 Body mass index (BMI) [Ratio] 28.3 kg/m2 Dr. Stewart Frederick Work Phone: 4(374)954-504415 [place] [address] 02-21-2023 12:59-0400 Body weight 70.[address] Stewart Frederick Work Phone: 5(913)593-962515 [place] [address] 02-21-2023 12:59-0400 Diastolic blood pressure 84 mm[Hg] Dr. Stewart Frederick Work Phone: 6(169)356-835615 [place] [address] 02-21-2023 12:59-0400 Heart rate 65 /min Dr. Stewart Frederick Work Phone: 9(908)656-501915 [place] [address] 02-21-2023 12:59-0400 Systolic blood pressure 123 mm[Hg] Dr. Stewart Frederick Work Phone: 0(093)352-814115 [place] [address] 01-31-2023 14:48-0400 Body mass index (BMI) [Ratio] 28.5 kg/m2 Dr. Stewart Frederick Work Phone: 8(375)452-116515 [place] [address] 01-31-2023 14:48-0400 Body temperature 98.5 [degF] Dr. Stewart Frederick Work Phone: 2(732)977-964915 [place] [address] 01-31-2023 14:48-0400 Body weight 70.[address] Stewart Frederick Work Phone: 7(233)638-305115 [place] [address] 01-31-2023 14:48-0400 Diastolic blood pressure 81 mm[Hg] Dr. Stewart Frederick Work Phone: 5(207)263-880415 [place] [address] 01-31-2023 14:48-0400 Heart rate 63 /min Dr. Stewart Frederick Work Phone: 0(830)440-536415 [place] [address] 01-31-2023 14:48-0400 Respiratory rate 16 /min Dr. Stewart Frederick Work Phone: 9(795)751-762115 [place] [address] 01-31-2023 14:48-0400 SaO2% (BldA) [Mass fraction] 98 % Dr. Stewart Frederick Work Phone: 1(348)789-682815 [place] [address] 01-31-2023 14:48-0400 Systolic blood pressure 114 mm[Hg] Dr. Stewart Frederick Work Phone: [facility] 01-14-2023 09:18-0400 Body mass index (BMI) [Ratio] 28.7 kg/m2 Dr. Stewart Frederick Work Phone: 9(231)795-438042 [place] [address] 01-14-2023 09:18-0400 Body weight 71.[address] Stewart Frederick Work Phone: 0(632)136-744415 [place] [address] 01-14-2023 09:18-0400 Diastolic blood pressure 86 mm[Hg] Dr. Stewart Frederick Work Phone: 8(172)855-021915 [place] [address] 01-14-2023 09:18-0400 Heart rate 65 /min Dr. Stewart Frederick Work Phone: 5(969)793-861315 [place] [address] 01-14-2023 09:18-0400 Systolic blood pressure 134 mm[Hg] Dr. Stewart Frederick Work Phone: 9(709)900-355415 [place] [address] 12-10-2022 04:57-0400 Body mass index (BMI) [Ratio] 29.8 kg/m2 Dr. Stewart Frederick Work Phone: 9(245)009-061015 [place] [address] 12-10-2022 04:57-0400 Body weight 73.[address] Stewart Frederick Work Phone: 4(366)725-838715 [place] [address] 12-10-2022 04:57-0400 Diastolic blood pressure 62 mm[Hg] Dr. Stewart Frederick Work Phone: 4(032)971-663642 [place] [address] 12-10-2022 04:57-0400 Heart rate 65 /min Dr. Stewart Frederick Work Phone: 1(145)989-743715 [place] [address] 12-10-2022 04:57-0400 Systolic blood pressure 102 mm[Hg] Dr. Stewart Frederick Work Phone: 2(198)880-441015 [place] [address] 10-19-2022 07:47-0400 Body height 157.[address] Stewart Frederick Work Phone: 4(068)231-195815 [place] [address] 10-19-2022 07:47-0400 Body weight 76.[address] Stewart Fredeirck Work Phone: [facility] 10-12-2022 10:05-0400 Body mass index (BMI) [Ratio] 31.9 kg/m2 Dr. Stewart Frederick Work Phone: [facility] 10-12-2022 10:05-0400 Body weight 76.[address] Stewart Frederick Work Phone: 6(153)398-223842 [place] [address] 10-12-2022 10:05-0400 Diastolic blood pressure 85 mm[Hg] Dr. Stewart Frederick Work Phone: 4(843)887-671342 [place] [address] 10-12-2022 10:05-0400 Systolic blood pressure 128 mm[Hg] Dr. Stewart Frederick Work Phone: 6(660)228-458542 [place] [address] 08-09-2022 08:39-0500 Body height 157.[address] Stewart Frederick Work Phone: 1(056)631-736415 [place] [address] 08-09-2022 08:36-0500 Body mass index (BMI) [Ratio] 32 kg/m2 Dr. Stewart Frederick Work Phone: 8(970)618-762842 [place] [address] 08-09-2022 08:36-0500 Body weight 76.[address] Stewart Frederick Work Phone: 3(862)447-955442 [place] [address] 08-09-2022 08:36-0500 Diastolic blood pressure 87 mm[Hg] Dr. Stewart Frederick Work Phone: 8(089)546-835442 [place] [address] 08-09-2022 08:36-0500 Systolic blood pressure 135 mm[Hg] Dr. Stewart Frederick Work Phone: [facility] 04-27-2022 13:26-0500 Body weight 72.12 kg Stewart Frederick MD Work Phone: [facility] 04-27-2022 13:26-0500 Diastolic blood pressure 72 mm[Hg] Stewart Frederick MD Work Phone: [facility] 04-27-2022 13:26-0500 Heart rate 54 /min Stewart Frederick MD Work Phone: [facility] 04-27-2022 13:26-0500 SaO2% (BldA) [Mass fraction] 99 % Stewart Frederick MD Work Phone: [facility] 04-27-2022 13:26-0500 Systolic blood pressure 122 mm[Hg] Stewart Frederick MD Work Phone: [facility] 02-27-2022 10:10-0400 Body temperature 98.1 [degF] Dr. Stewart Frederick Work Phone: [facility] 02-27-2022 10:10-0400 Diastolic blood pressure 80 mm[Hg] Dr. Stewart Frederick Work Phone: [facility] 02-27-2022 10:10-0400 Heart rate 44 /min Dr. Stewart Frederick Work Phone: [facility] 02-27-2022 10:10-0400 Respiratory rate 16 /min Dr. Stewart Frederick Work Phone: [facility] 02-27-2022 10:10-0400 SaO2% (BldA) [Mass fraction] 99 % Dr. Stewart Frederick Work Phone: [facility] 02-27-2022 10:10-0400 Systolic blood pressure 120 mm[Hg] Dr. Stewart Frederick Work Phone: [facility] 01-16-2022 08:39-0400 Body temperature 97.11 [degF] Stewart Frederick MD Work Phone: [facility] 01-16-2022 08:39-0400 Body weight 69.85 kg Stewart Frederick MD Work Phone: [facility] 01-16-2022 08:39-0400 Diastolic blood pressure 72 mm[Hg] Stewart Ferderick MD Work Phone: [facility] 01-16-2022 08:39-0400 Heart rate 60 /min Stewart Frederick MD Work Phone: [facility] 01-16-2022 08:39-0400 Respiratory rate 16 /min Stewart Frederick MD Work Phone: [facility] 01-16-2022 08:39-0400 Systolic blood pressure 112 mm[Hg] Stewart Frederick MD Work Phone: [facility] 12-15-2021 15:40-0400 Body height 157.[address] Cassia Elliott Work Phone: [facility] Work Phone: 12-15-2021 15:40-0400 Body mass index (BMI) [Ratio] 27.4 kg/m2 Dr. Cassia Elliott Work Phone: [facility] Work Phone: 12-15-2021 15:40-0400 Body weight 68.[address] Cassia Elliott Work Phone: [facility] Work Phone: 10-20-2021 14:38-0400 Body mass index (BMI) [Ratio] 27.6 kg/m2 Dr. Cassia Elliott Work Phone: [facility] Work Phone: 10-20-2021 14:38-0400 Body weight 68.[address] Cassia Elliott Work Phone: [facility] Work Phone: 10-20-2021 14:38-0400 Diastolic blood pressure 60 mm[Hg] Dr. Cassia Elliott Work Phone: [facility] Work Phone: 10-20-2021 14:38-0400 Systolic blood pressure 100 mm[Hg] Dr. Cassia Elliott Work Phone: [facility] Work Phone: 10-06-2021 07:06-0400 Body height 156.2 cm Tami Bucio [employer] Work Phone: [facility] 10-06-2021 07:06-0400 Body weight 65.77 kg Tami Bucio [employer]PUT[employer]WORK [employer]IST.[employer] Work Phone: [facility] 10-06-2021 07:06-0400 Diastolic blood pressure 70 mm[Hg] Tami Bucio [employer]PUT[employer]WORK [employer]IST.[employer] Work Phone: [facility] 10-06-2021 07:06-0400 Heart rate 64 /min Tami Bucio [employer]PUT[employer]WORK [employer]IST.[employer] SHAKER Work Phone: [facility] 10-06-2021 07:06-0400 Respiratory rate 16 /min Tami Bucio COMPUTER NETWORK SPECIALIST.PEANUT SHAKER Work Phone: [facility] 10-06-2021 07:06-0400 Systolic blood pressure 110 mm[Hg] Tami Bucio COMPUTER NETWORK SPECIALIST.PEANUT SHAKER Work Phone: [facility] 09-04-2021 07:41-0400 Body height 156.8 cm Tami Bucio COMPUTER NETWORK SPECIALIST.PEANUT SHAKER Work Phone: [facility] 09-04-2021 07:41-0400 Body weight 65.32 kg Tami Bucio COMPUTER NETWORK SPECIALIST.PEANUT SHAKER Work Phone: [facility] 09-04-2021 07:41-0400 Diastolic blood pressure 74 mm[Hg] Tami Bucio COMPUTER NETWORK SPECIALIST.PEANUT SHAKER Work Phone: [facility] 09-04-2021 07:41-0400 Heart rate 60 /min Atmi Bucio COMPUTER NETWORK SPECIALIST.PEANUT SHAKER Work Phone: [facility] 09-04-2021 07:41-0400 Respiratory rate 16 /min Tami Bucio COMPUTER NETWORK SPECIALIST.PEANUT SHAKER Work Phone: [facility] 09-04-2021 07:41-0400 Systolic blood pressure 110 mm[Hg] Tami Bucio COMPUTER NETWORK SPECIALIST.PEANUT SHAKER Work Phone: [facility] 08-10-2021 13:03-0500 Body height 157.[address] Cassia Elliott Work Phone: [facility] Work Phone: 08-10-2021 13:03-0500 Body mass index (BMI) [Ratio] 26.3 kg/m2 Dr. Cassia Elliott Work Phone: [facility] Work Phone: 08-10-2021 13:03-0500 Body temperature 96.3 [degF] Dr. Cassia Elliott Work Phone: [facility] Work Phone: 08-10-2021 13:03-0500 Body weight 65.[address] Cassia Elliott Work Phone: [facility] Work Phone: 08-10-2021 13:03-0500 Diastolic blood pressure 60 mm[Hg] Dr. Cassia Elliott Work Phone: [facility] Work Phone: 08-10-2021 13:03-0500 Heart rate 62 /min Dr. Cassia Elliott Work Phone: [facility] Work Phone: 08-10-2021 13:03-0500 Respiratory rate 16 /min Dr. Cassia Elliott Work Phone: [facility] Work Phone: 08-10-2021 13:03-0500 SaO2% (BldA) [Mass fraction] 98 % Dr. Cassia Elliott Work Phone: [facility] Work Phone: 08-10-2021 13:03-0500 Systolic blood pressure 112 mm[Hg] Dr. Cassia Elliott Work Phone: [facility] Work Phone: Encounters Encounter Date Encounter Type Care Provider Facility Start: 04-01-2025 [facility] Facility :[facility] Start: 03-18-2025 End: 03-18-2025 [facility] Facility:[facility] Start: 12-10-2024 End: 12-10-[address] Winifred Pedro MD -[facility] Work Phone: Start: 12-10-2024 End: 12-10-[address] Winifred Pedro MD Work Phone: -[facility] Start: 11-09-2024 End: 11-09-[address] Winifred Pedro MD Work Phone: [facility] Work Phone: Start: 11-09-2024 End: 11-09-2024 Patient encounter procedure Cindy NIX -Laboratory Work Phone: Start: 11-08-2024 End: 11-08-2024 Patient encounter procedure Cindy NIX -[facility] Work Phone: Start: 11-08-2024 End: 11-08-2024 Patient encounter status Cindy NIX [facility] Start: 11-08-2024 End: 11-09-[address] Winifred Pedro MD Work Phone: [facility] Work Phone: Start: 11-05-2024 ambulatory Health Risk Assessment Facility:[facility] Start: 11-05-2024 Registered Referred HEALTH RIS K ASSESSMENT -Employee Health Start: 10-26-2024 End: 10-26-2024 Patient encounter procedure Marley PASTRANA -[facility] Work Phone: Start: 10-26-2024 End: 10-26-2024 ambulatory Winifred Pedro Facility:[facility] Start: 10-25-2024 End: 10-25-[address] Winifred Pedro MD Work Phone: [facility] Work Phone: Start: 10-25-2024 End: 10-25-2024 Patient encounter procedure Sangeeta Dia CNM -Outpatient Breast Imaging Work Phone: Start: 10-25-2024 End: 10-25-2024 ambulatory Winifred Pedro Facility:[facility] Start: 10-10-2024 End: 11-12-2024 Admission to same day surgery center Stewart Frederick MD Work Phone: Ambulatory Surgery Comment on above: Outpatient [place] py (Patient is overdue for colorectal cancer screening since 08/27/23. Please schedule open access colonoscopy. ) Start: 10-10-2024 End: 11-12-[address] Winifred Pedro MD Work Phone: [facility] Work Phone: Start: 10-10-2024 End: 10-10-2024 Patient encounter procedure Marley PASTRANA -Laboratory, Specimen Work Phone: Start: 10-09-2024 End: 11-09-2024 ambulatory Stewart Frederick MD Work Phone: Internal Medicine [place] Start: 09-14-2024 ambulatory Winifred Pedro Facility :[facility] Start: 09-14-2024 Non-patient / Non-visit Srinivas Alba nd, DO -[facility] Start: 09-14-2024 End: 09-14-2024 Admission to same day surgery center Srinivas Burgos DO -Endoscopy Work Phone: Start: 09-14-2024 End: 09-14-[address] Winifred Pedro MD Work Phone: [facility] Work Phone: Start: 08-27-2024 End: 08-27-[address] Armando DelR osario DO -[facility] Work Phone: Start: 08-27-2024 End: 08-27-2024 ambulatory Winifred Pedro Facility:[facility] Start: 07-25-2024 End: 07-25-2024 ambulatory Mj Kingsley Facility:[facility] Start: 07-25-2024 End: 07-25-[address] Mj Kingsley MD -Physical Therapy Work Phone: Start: 07-13-2024 End: 07-13-2024 Patient encounter procedure Marley PASTRANA -[facility] Work Phone: Start: 07-13-2024 End: 07-13-2024 ambulatory Winifred Pedro Facility:[facility] Start: 06-11-2024 End: 06-11-[address] Winifred Pedro MD -[facility] Work Phone: Start: 06-11-2024 End: 06-11-2024 ambulatory Winifred Pedro Facility:[facility] Start: 05-11-2024 End: 05-11-2024 ambulatory Winifredbrooks Pedro Facility:[facility] Start: 04-24-2024 End: 04-24-2024 ambulatory Winifred Pedro Facility:[facility] Start: 04-23-2024 End: 04-23-2024 ambulatory [facility] Facility:[facility] Start: 04-18-2024 End: 04-18-2024 ambulatory [facility] Facility:[facility] Start: 04-16-2024 Encounter for other preprocedural examination Winifred Pedro [facility] Start: 04-16-2024 End: 04-16-2024 ambulatory [facility] Facility:[facility] Start: 04-16-[address] Winifred Pedro MD Work Phone: [facility] Start: 04-16-2024 End: 04-16-2024 ambulatory Winifred Willis Facility:[facility] Start: 04-12-2024 End: 04-12-2024 ambulatory [facility] Facility:[facility] Start: 11-09-2023 ambulatory Stewart mccallum MD Work Phone: Internal Medicine [place] [phone] Start: 06-13-2023 End: 06-13-[address] Stewart Frederick Work Phone: [facility] Work Phone: Start: 06-13-2023 End: 06-13-[address] Stewart Frederick Work Phone: [facility]-Radiology, [facility] Work Phone: Start: 06-13-2023 End: 06-13-[address] Stewart Frederick Work Phone: [facility] Work Phone: Start: 05-13-2023 End: 05-13-[address] Stewart Frederick Work Phone: [facility] Work Phone: Start: 03-29-2023 End: 03-29-[address] Stewart Frederick Work Phone: [facility] Work Phone: Start: 03-23-[address] Stewart galdamez Work Phone: [facility]-Employee Health Start: 03-23-2023 End: 03-23-[address] Stewart Frederick Work Phone: [facility] Work Phone: Start: 03-23-2023 End: 03-23-[address] Stewart Frederick Work Phone: [facility]-Laboratory Work Phone: Start: 02-21-2023 End: 02-21-[address] Stewart Frederick Work Phone: [facility] Work Phone: Start: 01-31-[address] Stewart Frederick Work Phone: [facility] Start: 01-31-2023 End: 01-31-2023 Encounter for general adult medical examination without abnormal findings Dr. Stewart Frederick Work Phone: [facility] Start: 01-31-2023 End: 01-31-[address] Stewart Frederick Work Phone: [facility] Work Phone: Start: 01-14-2023 End: 01-14-[address] Stewart Frederick Work Phone: [facility] Work Phone: Start: 12-10-2022 End: 12-10-[address] Stewart Frederick Work Phone: [facility] Work Phone: Start: 10-19-2022 End: 10-19-2022 Non-patient / Non-visit Dr. Stewart Frederick Work Phone: [facility] Start: 10-19-2022 End: 10-19-[address] Stewart Frederick Work Phone: [facility]-Ultrasound, [facility] Start: 10-19-2022 End: 11-03-[address] Stewart Frederick Work Phone: [facility] Work Phone: Start: 10-19-2022 End: 11-03-[address] Stewart Frederick Work Phone: [facility]-Nutritional Services Start: 10-12-2022 End: 10-12-[address] Stewart Frederick Work Phone: [facility] Start: 09-29-2022 End: 09-29-[address] Stewart Frederick Work Phone: [facility] Work Phone: Start: 09-29-2022 End: 09-29-[address] Stewart Frederick Work Phone: [facility]-Outpatient Breast Imaging Start: 08-11-2022 ambulatory Stewart mccallum MD Work Phone: Internal Medicine [facility] Start: 08-09-2022 End: 08-09-[address] Stewart Frederick Work Phone: [facility] Work Phone: Start: 08-09-2022 End: 08-09-[address] Stewart Frederick Work Phone: [facility]-Laboratory Start: 08-09-2022 End: 08-09-[address] Stewart Frederick Work Phone: [place] Start: 06-17-2022 End: 06-17-2022 ambulatory [facility] Work Phone: Start: 06-17-2022 End: 06-17-[address] Stewart Frederick Work Phone: [facility] Start: 06-10-2022 End: 06-10-[address] Stewart Frederick Work Phone: [facility] Work Phone: Start: 06-10-2022 End: 06-10-[address] Stewart Frederick Work Phone: [facility]-Laboratory Start: 04-27-2022 End: 04-27-2022 Office outpatient visit 25 minutes Stewart Frederick MD Work Phone: Internal Medicine [place] Comment on above: Hypertension, unspec ified type (Primary Dx); LPRD (laryngopharyngeal reflux disease); Chronic constipation; Vitamin D deficiency; Encounter for long-term current use of medication; Encounter for immunization; Persistent depressive disorder Start: 04-20-2022 End: 04-20-[address] Stewart Frederick Work Phone: [facility] Work Phone: Start: 04-20-2022 End: 04-20-[address] Stewart Frederick Work Phone: [facility]-Radiology, [facility] Start: 04-19-2022 ambulatory Stewart mccallum MD Work Phone: Internal Medicine [place] Comment on above: Test Results/Immuniz ations Start: 04-07-2022 Telephone encounter Stewart vance MD Work Phone: Internal [facility] [place] Comment on above: Results (03/29 PSG [facility]) Start: 03-29-2022 End: 03-29-[address] Stewart Frederick Work Phone: [facility]-Sleep Lab Start: 02-27-2022 End: 02-27-[address] Stewart Frederick Work Phone: [facility] Start: 02-11-2022 End: 02-11-[address] Stewart Frederick Work Phone: [facility] Work Phone: Start: 02-11-2022 End: 02-11-[address] Stewart Frederick Work Phone: [facility]-Laboratory Start: 01-16-2022 End: 01-16-2022 Office outpatient visit 25 minutes Stewart Frederick MD Work Phone: Internal [facility] [place] Comment on above: Hypertension, unspec ified type (Primary Dx); Vitamin D deficiency; LPRD (laryngopharyngeal reflux disease); Encounter for long-term current use of medication; RLS (restless legs syndrome); Daytime sleepiness Start: 12-28-2021 End: 12-28-[address] Stewart Frederick Work Phone: [facility] Start: 12-24-2021 End: 12-24-[address] Stewart Frederick Work Phone: [facility] Start: 12-22-2021 End: 12-22-[address] Stewart Frederick Work Phone: [facility] Start: 12-17-2021 End: 12-17-[address] Cassia Elliott Work Phone: [facility] Start: 12-15-2021 End: 12-15-[address] Cassia Elliott Work Phone: [facility] Start: 10-20-2021 End: 10-20-[address] Cassia Elliott Work Phone: [place] Start: 10-14-2021 ambulatory Tami Bucio APRN.PEANUT SHAKER Work Phone: Internal [facility] [place] Comment on above: Lexapro Start: 10-06-2021 End: 10-06-2021 Patient encounter procedure Tami Bucio APRN.PEANUT SHAKER Work Phone: [facility] [place] Comment on above: Binge eating disorde r (Primary Dx); Anxiety and depression Start: 10-01-[address] Liseth Elliott Work Phone: [facility] Start: 09-28-2021 End: 09-28-[address] Cassia Elliott Work Phone: [facility]-Outpatient Breast Imaging Start: 09-09-2021 Chart abstracting Mari HANKS Work Phone: Adult [facility] Start: 09-04-2021 Chart abstracting Mari HANKS Work Phone: Adult Psychology Start: 09-04-2021 End: 09-04-2021 Patient encounter procedure Tami Bucio APRN.PEANUT SHAKER Work Phone: Internal [facility] [place] Comment on above: Anxiety and depressi on (Primary Dx); Fatigue, unspecified type; Encounter for screening for HIV; Need for hepatitis C screening test; Weight gain; Encounter for screening mammogram for breast cancer; Hypertension, unspecified type; Insomnia, unspecified type; Constipation, unspecified constipation type; Vitamin D deficiency Start: 08-10-2021 End: 08-10-[address] Cassia Elliott Work Phone: [facility]-Laboratory, [facility] Start: 02-16-[address] Cassia Elliott Work Phone: [facility] Start: 11-26-[address] Cassia Elliott Work Phone: [facility] Procedures Date Procedure Procedure Detail Performing Clinician Start: 11-05-[address] hormone measurement [address] Winifred Pedro MD Work Phone: Comment on above: FEMALE:Follicular: 1.4 - 18.1 mIU/mLMidc ycle: 3.4 - 33.4 mIU/mLLuteal: 1.5 - 9.1 mIU/mLPost Menopause: 23.0 - 116.3 mIU/mLMALE: 1.4 - 18.1 mIU/mL Start: 11-05-[address] Trinity Pedro MD Work Phone: Comment on above: FEMALE:Follicular: 1.9-12.5 mIU/mLMidcyc le: 8.7-76.3 mIU/mLLuteal: 0.5-16.9 mIU/mLPost Menopause: 15.9-54.0 mIU/mLMALE:20-70 Years: 1.5-9.3 mIU/mL>70 Years: 3.1-34.6 mIU/mL Start: 11-05-2024 Serum inorganic phosphate measurement Dr[address] Winifred Pedro MD Work Phone: Start: 11-05-2024 Total iron binding capacity measurement Dr. Winifred Pedro MD Work Phone: Start: 11-05-2024 Vitamin D, 25-hydroxy measurement Dr. Kira Pedro MD Work Phone: Comment on above: Vitamin D StatusDeficiency: <20 ng/mL (5 0nmol/L)Insufficiency: 20-30 ng/mL (50-75 nmol/L)Sufficiency: 30-100 ng/mL (75-250 nmol/L)Toxicity: >100 ng/mL (>250 nmol/L) Start: 10-25-[address] Winifred Pedro [...] Work Phone: Start: 02-10-2011 Mammography Tami Bucio MELISSA Work Phone: Start: 03-02-2008 Lipid 1996 panel - Serum or Plasma Stewart Frederick MD Work Phone: Plan of Treatment Date Care Activity Detail Author Start: 04-27-2032 Urine microalbumin profile [facility] Start: 02-04-2025 Influenza vaccination Influenz a Vaccine (Season Ended) [facility] Start: 09-14-2024 Egd transoral biopsy single/multiple EGD BIOPSY SINGLE/MULTIPLE [facility] Start: 09-14-2024 Patient discharge [facility] Start: 02-05-2024 Covid-19 Vaccine ( season) Covid-19 Vaccine ( season) [facility] Start: 02-05-2024 Influenza vaccination Influenz a Vaccine (Season Ended) [facility] Start: 09-30-2023 Screening for malign ant neoplasm of breast Mammogram Screening [facility] Start: 08-27-2023 Diabetes Screening Diabetes Screenin g [facility] Start: 08-27-2023 Lipid panel Lipid Screening [facility] Start: 08-27-2023 Screening for malign ant neoplasm of colon [facility] Start: 06-13-2023 Patient referral [facility] Work Phone: Start: 04-27-2023 ANNUAL PCP TEAM LYFT DRIVER CRISTÓBAL DISEASE VISIT ANNUAL PCP TEAM CHRONIC DISEASE VISIT [facility] Start: 04-27-2023 BP CONTROLLED (<130/80) BP CONTROLLE D (<130/80) [facility] Start: 04-27-2023 HEPATITIS B (1 of 3 - 3-dose series) HEPATITIS B (1 of 3 - 3-dose series) [facility] Comment on above: Postponed from 08/26 (Declined at this time) Start: 02-04-2023 Covid-19 Vaccine ( season) Covid-19 Vaccine () [facility] Start: 01-16-2023 ANNUAL PCP TEAM LYFT DRIVER CRISTÓBAL DISEASE VISIT ANNUAL PCP TEAM CHRONIC DISEASE VISIT [facility] Start: 01-16-2023 BP CONTROLLED (<130/80) BP CONTROLLE D (<130/80) [facility] Start: 08-09-2022 Testosterone Free [Mass/volume] in Serum or Plasma [facility] Start: 08-09-2022 17-Hydroxyprogestero ne [Mass/volume] in Serum or Plasma [facility] Start: 04-27-2022 End: 06-27-2022 25-hydroxyvitamin D3 [Mass/volume] in Serum or Plasma VITAMIN D 25 HYDROXY Lab Routine Vitamin D deficiency Encounter for long-term current use of medication Expected: 04/27/2022, Expires: 06/27/2022 [facility] Work Phone: Comment on above: Expected: 04/27/2022 , Expires: 06/27/2022 Start: 04-27-2022 End: 06-27-2022 CBC panel - Blood by Automated count CBC Lab Routine Hypertension, unspecified type Encounter for long-term current use of medication Expected: 04/27/2022, Expires: 06/27/2022 [facility] Work Phone: Comment on above: Expected: 04/27/2022 , Expires: 06/27/2022 Start: 04-27-2022 End: 06-27-2022 Comprehensive metabolic 2000 panel - Serum or Plasma COMP METABOLIC PANEL Lab Routine Hypertension, unspecified type Encounter for long-term current use of medication Expected: 04/27/2022, Expires: 06/27/2022 [facility] Work Phone: Comment on above: Expected: 04/27/2022 , Expires: 06/27/2022 Start: 04-27-2022 End: 06-27-2022 Magnesium [Mass/volume] in Serum or Plasma MAGNESIUM BLD Lab Routine Encounter for long-term current use of medication Expected: 04/27/2022, Expires: 06/27/2022 [facility] Work Phone: Comment on above: Expected: 04/27/2022 , Expires: 06/27/2022 Start: 02-16-2022 End: 04-18-2022 25-hydroxyvitamin D3 [Mass/volume] in Serum or Plasma VITAMIN D 25 HYDROXY Lab Routine Vitamin D deficiency Encounter for long-term current use of medication Expected: 02/16/2022 (Approximate), Expires: 04/18/2022 [facility] Work Phone: Comment on above: Expected: 02/16/2022 (Approximate), Expires: 04/18/2022 Start: 02-16-2022 End: 04-18-2022 CBC panel - Blood by Automated count CBC Lab Routine Hypertension, unspecified type Encounter for long-term current use of medication Expected: 02/16/2022 (Approximate), Expires: 04/18/2022 [facility] Work Phone: Comment on above: Expected: 02/16/2022 (Approximate), Expires: 04/18/2022 Start: 02-16-2022 End: 04-18-2022 Comprehensive metabolic 2000 panel - Serum or Plasma COMP METABOLIC PANEL Lab Routine Hypertension, unspecified type Encounter for long-term current use of medication Expected: 02/16/2022 (Approximate), Expires: 04/18/2022 [facility] Work Phone: Comment on above: Expected: 02/16/2022 (Approximate), Expires: 04/18/2022 Start: 02-16-2022 End: 04-18-2022 Ferritin [Mass/volume] in Serum or Plasma FERRITIN BLD Lab Routine RLS (restless legs syndrome) Expected: 02/16/2022 (Approximate), Expires: 04/18/2022 [facility] Work Phone: Comment on above: Expected: 02/16/2022 (Approximate), Expires: 04/18/2022 Start: 02-04-2022 Influenza vaccination INFLUENZA (#1) [facility] Start: 12-04-2021 End: 02-03-2022 Comprehensive metabolic 2000 panel - Serum or Plasma COMP METABOLIC PANEL Lab Routine Weight gain Expected: 12/04/2021 (Approximate), Expires: 02/03/2022 [facility] Work Phone: Comment on above: Expected: 12/04/2021 (Approximate), Expires: 02/03/2022 Start: 12-04-2021 End: 02-03-2022 Hepatitis C virus Ab [Presence] in Serum HEP C AB IA W/CONF SCRN Lab Routine Need for hepatitis C screening test Expected: 12/04/2021 (Approximate), Expires: 02/03/2022 [facility] Work Phone: Comment on above: Expected: 12/04/2021 (Approximate), Expires: 02/03/2022 Start: 12-04-2021 End: 02-03-2022 HIV 1+2 Ab [Presence] in Serum or Plasma by Immunoassay HIV 1 2 COMBO(AG/AB),WITH REFLEX TO DIFFERENTIATION Lab Routine Encounter for screening for HIV Expected: 12/04/2021 (Approximate), Expires: 02/03/2022 [facility] Work Phone: Comment on above: Expected: 12/04/2021 (Approximate), Expires: 02/03/2022 Start: 12-04-2021 End: 02-03-2022 Thyrotropin [Units/volume] in Serum or Plasma TSH BLD Lab Routine Fatigue, unspecified type Expected: 12/04/2021 (Approximate), Expires: 02/03/2022 [facility] Work Phone: Comment on above: Expected: 12/04/2021 (Approximate), Expires: 02/03/2022 Start: 06-03-2021 COVID-19 VACCINE (4 - Booster for Moderna series) COVID-19 VACCINE (4 - Booster for Moderna series) [facility] Start: 09-04-2020 Urine microalbumin profile DTAP,TDAP,TD (3 - Td or Tdap) [facility] Start: 2018 Mammography MAMMOGRAM [facility] Start: 03-04-2015 PAP TESTING PAP TESTING [facility] Start: 03-04-2015 Screening for malign ant neoplasm of cervix Cervical Cancer Screening [facility] Start: 02-02-2015 HPV TESTING HPV TESTING [facility] Start: 1997 Hepatitis B Vaccine (1 of 3 - 19+ 3-dose series) Hepatitis B Vaccine (1 of 3 - 19+ 3-dose series) [facility] Start: 1996 Anxiety Screening Anxiety Screening [facility] Start: 1996 BP Controlled (<130/80) BP Controlle d (<130/80) [facility] Start: 1996 HEPATITIS C SCREENING HEPATITIS C SC KEHINDE [facility] Start: 1978 HEPATITIS B (1 of 3 - 3-dose series) HEPATITIS B (1 of 3 - 3-dose series) [facility] Bilirubin measuremen t, urine [facility] Cobalamin (Vitamin B 12) [Mass/volume] in Serum or Plasma [facility] Cortisol [Mass/volum e] in Serum or Plasma [facility] End: 11-08-2025 DBT Breast - bilateral screening VALE SCREENING W [facility] Radiology Routine Encounter for screening mammogram for breast cancer 1 Occurrences starting 10/09/2024 until 11/08/2025 [facility] Work Phone: Comment on above: 1 Occurrences starti ng 10/09/2024 until 11/08/2025 Estradiol (E2) [Mass/volume] in Serum or Plasma [facility] Estradiol (E2) [Mass/volume] in Serum or Plasma [facility] Ferritin [Mass/volum e] in Serum or Plasma [facility] Follicle stimulating hormone measurement [facility] Follitropin and Lutropin panel [Units/volume] - Serum or Plasma [facility] Hemoglobin [Presence ] in Urine [facility] Hemoglobin A1c/Hemoglobin.total in Blood [facility] End: 09-10-2023 VALE SCREENING VALE SCREENING Radiology Routine Encounter for screening mammogram for breast cancer 1 Occurrences starting 08/11/2022 until 09/10/2023 [facility] Work Phone: Comment on above: 1 Occurrences starti ng 08/11/2022 until 09/10/2023 End: 10-04-2022 VALE SCREENING W [facility] SCREENING [facility] Radiology Routine Encounter for screening mammogram for breast cancer 1 Occurrences starting 09/04/2021 until 10/04/2022 [facility] Work Phone: Comment on above: 1 Occurrences starti ng 09/04/2021 until 10/04/2022 Measurement of keton es in urine using dipstick [facility] MG Breast - bilatera l Screening [facility] MG Breast - bilatera l Screening [facility] End: 12-08-2024 MG Breast Screening VALE SCREENING Radiology Routine Encounter for screening mammogram for breast cancer 1 Occurrences starting 11/09/2023 until 12/08/2024 [facility] Work Phone: Comment on above: 1 Occurrences starti ng 11/09/2023 until 12/08/2024 Patient referral [facility] Work Phone: pH of Urine [facility] End: 01-16-2023 Polysomnogram POLYSOMNOGRAM (PSG) Procedures Routine Hypertension, unspecified type RLS (restless legs syndrome) Daytime sleepiness 1 Occurrences starting 01/16/2022 until 01/16/2023 [facility] Work Phone: Comment on above: 1 Occurrences starti ng 01/16/2022 until 01/16/2023 Radionuclide gastric emptying study [facility] Specific gravity of Urine [facility] T4 free measurement [facility] Testosterone measurement [facility] Thyroid stimulating hormone measurement [facility] Urine dipstick for glucose [facility] Urine dipstick for leukocyte esterase [facility] Urine dipstick for nitrite [facility] Urine dipstick for protein [facility] Urine examination [facility] Urobilinogen [Presen ce] in Urine [facility] Vitamin D, 25-hydrox y measurement [facility] Immunizations Immunization Date Immunization Notes Care Provider Fa [facility] 02-24-2024 Covid (Spikevax) Dr. Winifred ashley MD Work Phone: [facility] 02-24-2024 influenza, seasonal, injectable, preservative free Dr. Winifred Pedro MD Work Phone: [facility] 03-24-2023 Covid (Spikevax) Dr. Stewart pena Work Phone: [facility] 03-09-2023 influenza, injectabl e, quadrivalent, preservative free Dr. Stewart Frederick Work Phone: [facility] 04-27-2022 TD(adult) unspecifie d formulation Stewart Frederick MD Work Phone: [facility] Work Phone: 04-27-2022 tetanus and diphther ia toxoids, adsorbed, preservative free, for adult use (5 Lf of tetanus toxoid and 2 Lf of diphtheria toxoid) Stewart Frederick MD Work Phone: [facility] 03-05-2022 influenza, injectabl e, quadrivalent, preservative free Dr. Stewart Frederick Work Phone: [facility] 03-05-2022 influenza, seasonal, injectable Dr. Stewart Frederick Work Phone: [facility] 03-05-2022 influenza virus vaccine, unspecified formulation Stewart Frederick MD Work Phone: [facility] 02-19-2022 Chris Rodriguez Bivalorlando nt Booster Dr. Stewart Frederick Work Phone: [facility] 04-08-2021 Covyanci (Moderna) Dr. Alberto Elliott Work Phone: [facility] 03-03-2021 influenza, injectabl e, quadrivalent, preservative free Dr. Stewart Frederick Work Phone: [facility] 03-03-2021 influenza, seasonal, injectable Dr. Cassia Elliott Work Phone: [facility] 03-03-2021 influenza, seasonal, injectable, preservative free Tami Bucio COMPUTER NETWORK SPECIALIST.[employer] Work Phone: [facility] Work Phone: 07-07-2020 Covyanci Tran) Dr. Alberto Elliott Work Phone: [facility] 06-09-2020 Chris Tran) Dr. Alberto Elliott Work Phone: [facility] 03-04-2020 influenza, injectabl e, quadrivalent, preservative free Dr. Stewart Frederick Work Phone: [facility] 03-04-2020 influenza, seasonal, injectable Dr. Cassia Elliott Work Phone: [facility] 03-04-2020 influenza, seasonal, injectable, preservative free Tami Bucio COMPUTER NETWORK SPECIALIST.[employer] Work Phone: [facility] Work Phone: 03-27-2019 influenza, injectabl e, quadrivalent, preservative free Dr. Stewart Frederick Work Phone: [facility] 03-27-2019 influenza, seasonal, injectable Tami Bucio COMPUTER NETWORK SPECIALIST.[employer] Work Phone: [facility] Work Phone: 03-20-2018 influenza, injectabl e, quadrivalent, preservative free Dr. Stewart Frederick Work Phone: [facility] 03-20-2018 influenza, seasonal, injectable Tami Bucio COMPUTER NETWORK SPECIALIST.[employer] Work Phone: [facility] Work Phone: 03-02-2017 influenza, injectabl e, quadrivalent, preservative free Dr. Stewart Frederick Work Phone: [facility] 03-02-2017 influenza, seasonal, injectable Tami Bucio COMPUTER NETWORK SPECIALIST.[employer] Work Phone: [facility] Work Phone: 03-04-2016 influenza, injectabl e, quadrivalent, preservative free Dr. Stewart Frederick Work Phone: [facility] 03-04-2016 influenza, seasonal, injectable Tami Bucio COMPUTER NETWORK SPECIALIST.[employer] Work Phone: [facility] Work Phone: 03-06-2015 influenza, injectabl e, quadrivalent, preservative free Dr. Stewart Frederick Work Phone: [facility] 03-06-2015 influenza, seasonal, injectable Dr. Cassia Elliott Work Phone: [facility] 03-06-2015 influenza, seasonal, injectable, preservative free Tami Bucio COMPUTER NETWORK SPECIALIST.[employer] Work Phone: [facility] Work Phone: 03-06-2014 influenza, injectabl e, quadrivalent, preservative free Dr. Stewart Frederick Work Phone: [facility] 03-06-2014 influenza, seasonal, injectable Tami Bucio COMPUTER NETWORK SPECIALIST.[employer] Work Phone: [facility] Work Phone: 06-05-[address] Cassia Elliott Work Phone: [facility] 06-05-2013 influenza, seasonal, injectable, preservative free Tamiaquiles Bucio COMPUTER NETWORK SPECIALIST.[employer] Work Phone: [facility] Work Phone: 09-04-2010 diphtheria, tetanus toxoids and acellular pertussis vaccine Tamiaquiles Alans COMPUTER NETWORK SPECIALIST.[employer] Work Phone: [facility] Work Phone: 08-31-2010 tetanus toxoid, reduced diphtheria toxoid, and acellular pertussis vaccine, adsorbed [facility] COMPUTER NETWORK SPECIALIST.[employer] Work Phone: [facility] Work Phone: Payers Date Payer Category Payer Self-pay [id number] 2023 Unknown [id number] 2021 Unknown MMO MMO TPA [id number] 2021-Present [address] [place] [address] PPO [id number] 2021 Unknown [id number] 2016 Unknown [id number] Unknown [facility] [id number] Unknown [id number] Unknown [id number] Unknown [id number] [id number] Unknown [id number] 2.840.1.050169.3.579.2.462 Unknown [id number] [id number] Unknown [id number] [id number] Unknown [id number] [id number] Unknown [id number] [id number] Unknown [id number] 2.840.1.497091.3.579.2.462 Unknown [id number] 2.840.1.301979.3.579.2.462 Unknown [id number] 2.840.1.302930.3.579.2.462 Unknown [id number] 2.840.1.236404.3.579.2.462 Unknown [id number] 2.840.1.724654.3.579.2.462 Unknown [id number] 2.840.1.885491.3.579.2.462 Unknown [id number] 2.840.1.911896.3.579.2.462 Unknown [id number] 2.840.1.131030.3.579.2.462 Unknown [id number] 2.840.1.438311.3.579.2.462 Unknown [id number] 2.840.1.301633.3.579.2.462 Unknown [id number] 2.840.1.510163.3.579.2.462 Unknown [id number] 2.840.1.988032.3.579.2.462 Unknown [id number] [id number] Unknown [id number] Social History Date Type Detail Facility Start: 01-16-2022 End: 09-10-2024 Tobacco smoking status NHIS Never smoked tobacco [facility] Start: 09-04-2021 End: 01-16-2022 Alcohol intake Current drinker of alcohol (finding) [facility] Start: 09-04-2021 History SDOH Alcohol Comment rare, on weekends [facility] Start: 1980 Sex Assigned At Female [facility] Start: 08-25-2021 End: 04-27-2022 Exposure to SARS-CoV-2 (event) Not sure [facility] Work Phone: Start: 09-29-2021 History SDOH Alcohol Frequency 4 [facility] Start: 09-29-2021 End: 04-26-2022 History SDOH Alcohol Std Drinks 1 [facility] Start: 09-29-2021 End: 04-26-2022 History SDOH Alcohol Binge 2 [facility] Start: 09-29-2021 History SDOH Social Connections Living 7 [facility] Start: 09-29-2021 History SDOH Physica l Activity MPS 6 [facility] Start: 08-10-2021 End: 06-13-2023 Tobacco smoking status KYIS Unknown if ever smoked [facility] Start: 07-18-2020 Non-smoker [facility] Start: 01-16-2022 Tobacco use and exposure Smokeless tobacco non-user [facility] Work Phone: Start: 09-29-2021 End: 06-21-2022 History of Social function [facility] Start: 09-29-2021 End: 06-21-2022 Social connection and isolation panel [facility] Do you belong to any clubs or organizations such as jewish groups, unions, fraternal or athletic groups, or school groups? Yes [facility] Are you now , , , , never or living with a partner? Never [facility] How often to you hav e a drink containing alcohol? 2-3 time sa week [facility] How many standard drinks containing alcohol do you have on a typical day? 1 or 2 [facility] How often do you hav e 6 or more drinks on 1 occasion? Less than monthly [facility] How hard is it for y ou to pay for the very basics like food, housing, medical care, and heating Not very hard [facility] Adult Depression Screening Assessment 5 [facility] Do you feel stress - tense, restless, nervous, or anxious, or unable to sleep at night because your mind is troubled all the time - these days [OSQ] Rather much [facility] (I/We) worried evita er (my/our) food would run out before (I/we) got money to buy more. Never true [facility] The food that (I/we) bought just didn't last, and (I/we) didn't have money to get more. Sometimes true [facility] In the past 12 month s, was there a time when you were not able to pay the mortgage or rent on time? No [facility] Start: 09-04-2021 Gender identity Identifies as female gender (finding) [facility] Start: 09-04-2021 Sexual orientation Heterosexual (fin ding) [facility] Start: 09-14-2024 Sex Female (finding) [facility] NEGATED: Highlighted row Not [facility] Medical Equipment Procedure Code Equipment Code [...] Assessment Result Facility 09-14-2024 Cognitive function Voice/Name Brianna Jackson [facility] Work Phone: Clinical Notes 09-04-2021 to 10-11-2024 Latonia Blair - 10/11/2024 3:02 PM EDTPatient Instructions Note Date & Type Note Facility 10-11-2024 Note HNO ID: [id number] Author: ?, ?, ? Service: ? Author Type: ? Type: Progress Notes Filed: 11/12/2024 03:03 Note Text: Spoke to patient, she is no longer a patient of [facility]. PCP was updated [facility] 10-11-2024 History of Presen t illness Narrative Spoke to patient, she is no longer a patient of [facility]. PCP was updated documented in this encounter [facility] 10-10-2024 Instructions Sarah Andino RN - 10/10/2024 1:13 PM EDT COLONOSCOPY BOWEL PREPARATION INSTRUCTIONS MiraLAX Your doctor has scheduled you for a colonoscopy. To have a successful colonoscopy, you must have a clean colon, that is empty. A clean colon allows your doctor to see the entire colon & diagnose issues like polyps or cancer. For doctors, a clean colon is like driving on a shyam day; a dirty colon like driving in a storm. It is very important that you follow these instructions exactly, or your colonoscopy may not be as effective, could be canceled, and you may need to do the bowel prep and colonoscopy again. TRANSPORTATION REQUIREMENTS You are receiving IV sedation. For your safety, a responsible adult escort must accompany you to and from your procedure: Your adult escort MUST be present with you at check-in for your colonoscopy. Your adult escort MUST remain in the endoscopy area until you are discharged. Your adult escort MUST transport you home once you are discharged. You are NOT allowed to operate any form of transportation (i.e. drive a car, bicycle, etc) or leave the Endoscopy Center ALONE. It is not safe to do so. If you cannot meet these requirements, your procedure will be canceled. MEDICATION REQUIREMENTS For your safety, certain medications will need to be stopped or adjusted before you can have your procedure: BLOOD THINNERS: If you take blood thinners, such as Coumadin (warfarin), Plavix (clopidogrel), Ticlid (ticlopidine hydrochloride), Agrylin (anagrelide), Xarelto (Rivaroxaban), Pradaxa (Dabigatran), Eliquis (Apixaban), or Effient (Prasugrel), contact the physician who is prescribing these medications at least 2 weeks prior to your procedure to discuss any necessary adjustments. DIABETES: If you take medications for diabetes, your dosage may need to be adjusted. If you are being treated for diabetes with insulin, diabetic pills, or other injectable medications do not take your REGULAR dose after midnight on the day of your procedure. If you are taking any other types of insulin such as Lantus, Humalog, NPH (long-acting insulin), or 70/30 insulin, take half your normal dose the day before your procedure. DIABETES/WEIGHT MANAGEMENT: If you take medications for weight-loss, your dosage may need to be adjusted Contact the doctor who prescribes this medication for further instructions. If you take medications for weight-loss like semaglutide (Ozempic, Wegovy, Rybelsus), dulaglutide (Trulicity), liraglutide (Victoza, Saxenda), exenatide (Byetta, Bydureon), or lixisenatide (Adylyxin), stop your medication 1 week prior to your procedure. If you take medications like canagliflozin (Invokana), dapagliflozin (Farxiga, Forxiga), empagliflozin (Jardiance), stop your medication 3 days prior to your procedure. If you take ertugliflozin (Steglatro) stop your medication 4 days prior to your procedure. IRON: If you take iron pills, STOP them 1 week BEFORE your procedure, may resume after. OTHER MEDS: May take all other medications (including aspirin, antibiotics, water pills / diuretics like Lasix or Metolozone, blood pressure meds, etc.) at their usual scheduled time with water. DIET REQUIREMENTS The day before your colonoscopy, you may have a clear liquid diet (see below). The day of your colonoscopy, you may continue a clear liquid diet until 3 hours before your colonoscopy. Within 3 hours of your colonoscopy, take only any medications (as above) with a sip of water. Clear Liquid Diet Broth (chicken, beef or vegetable broth or bullion. Just the broth, no solids). Water Coffee or Tea (NO milk or creamer), but sugar and sugar substitutes are allowed. Clear liquids including clear, yellow, green, blue (NO red, NO orange, NO purple) Sodas / soft drinks; Gatorade or other sports drinks Fruit juice (strained; no-pulp); John-Aid or flavored drinks Plain Jell-O or other gelatins Popsicles or hard candy Bowel prep can work differently from person to person. Some people's bowels move slowly and they may need different instructions. Please see your doctor in office or virtually for personalized bowel prep instructions if you have: BOWEL PREPARATION (MIRALAX/GATORADE) Split Dosing Bowel Prep: This means drinking your bowel prep in two doses. Split dosing helps clean your colon better and makes it less likely that your procedure will be canceled. You will need to purchase the following (no prescriptions are needed): 64 ounces Gatorade, Propel, Crystal Lite or other noncarbonated clear liquid sports drink (NOT red, orange, or purple). Diabetic patients buy sugar-free, e.g. Gatorade G2 4 Dulcolax laxative tablets containing 5mg bisacodyl each (do not buy the stool softener) 8.3 oz MiraLAX (238g) powder or generic polyethylene glycol 3350 (find in laxative aisle) The day before your colonoscopy mix 64 oz of the sports drink with 8.3 oz MiraLAX (238 g) in a pitcher. Stir or shake until MiraLAX completely dissolved. Chill if desired. On the evening before your colonoscopy: 5 PM take 4 Dulcolax laxative tablets with water by mouth. 6 PM drink the first half of the Gatorade/MiraLAX solution Drink one 8-ounce glass every 15 minutes. Six hours before your colonoscopy, drink the second half of the solution. Drink one 8-ounce glass every 15 minutes. You may continue a clear liquid diet until 3 hours before your colonoscopy. Bowel prep can work differently from person to person. Some people's bowels move slowly and they may need different instructions. Please see your doctor in office or virtually for personalized bowel prep instructions if you have: Medical condition that needs special accommodations Had a poor bowel prep results or failed bowel prep attempts in the past. Had difficulty with anesthesia during the procedure. FREQUENTLY ASKED QUESTIONS Q: What if I suffer from constipation? A: Recommend taking extra laxatives to resolve your constipation days prior to entering the bowel prep day. Q: What if have had prior poor preps results in past? A: Contact your physician as you will likely need additional bowel prep instructions. Q: What if I have motility issues like Parkinson's, MS (multiple sclerosis), wheelchair dependent, etc.? or on medications that slow colonic transit times (narcotics, gabapentin, anticholinergic medications etc.) A: Contact your physician as you will likely need extra time and additional laxatives to complete your bowel prep. Q: What if I cannot drink large volume of liquid? A: Start your prep 2-3 hours earlier to allow yourself more time to complete the entire prep. Q: What if I had bariatric surgery? Do I still have to complete the entire prep? A: Yes, gastric bypass surgery involves the stomach & small bowel. You may need to drink smaller amounts, slower (may need more time to complete your bowel prep). Gastric bypass does not alter the length of your colon so you will need to complete the entire bowel prep, it may just take longer time to complete it. Q: What if I am on dialysis? A: Please consult your adoption specialist prior to scheduling to get instructions pertinent to you. In general, dialysis patients take the Gentel Biosciencesly bowel prep and have the procedure same day of their dialysis (colonoscopy in AM, dialysis in PM). Q: How do I know if something is considered as clear liquid diet? A: If you can pour it in a glass and you can see through it, it is considered clear liquid Q: Can I eat nuts, seeds, beans, popcorn, dried fruits, vegetables & fruits that have skin peel? A: No, you will need to not eat these items starting 3 days prior to procedure. Q: Can I take Uber/Lyft/taxi/bus home? A: An adult MUST be present with you at check-in for your colonoscopy and remain in the endoscopy area until you are discharged. You can take Uber home only if this adult escort is with you at check in, remain in the endoscopy area until you are discharged, and takes the Uber with you to home. Q: Can I sleep it off here and drive myself home? A: No, you must have an adult with you at time of procedure check in, remain in the endoscopy center during your procedure, and drive you home. You cannot drive a vehicle after your procedure the rest of the day. Q: What if I can't finish my bowel prep? A: If you cannot complete your entire bowel prep, there is high likelihood that your colonoscopy will need to be rescheduled due to inadequate prep quality. documented in this encounter [facility] 10-10-2024 Note Patient Outreach ( [facility]) RAMANDEEP SNOW ([id number]) 1980 F Date Time Provider Department 10/10/24 [facility] During your visit today, we recorded the following information about you: Sarah Andino RN 10/10/2024 1:13 PM Signed COLONOSCOPY BOWEL PREPARATION INSTRUCTIONS MiraLAX? Your doctor has scheduled you for a colonoscopy. To have a successful colonoscopy, you must have a clean colon, that is empty. A clean colon allows your doctor to see the entire colon AND diagnose issues like polyps or cancer. For doctors, a clean colon is like driving on a shyam day; a dirty colon like driving in a storm. It is very important that you follow these instructions exactly, or your colonoscopy may not be as effective, could be canceled, and you may need to do the bowel prep and colonoscopy again. TRANSPORTATION REQUIREMENTS You are receiving IV sedation. For your safety, a responsible adult escort must accompany you to and from your procedure: Your adult escort MUST be present with you at check-in for your colonoscopy. Your adult escort MUST remain in the endoscopy area until you are discharged. Your adult escort MUST transport you home once you are discharged. You are NOT allowed to operate any form of transportation (i.e. drive a car, bicycle, etc) or leave the Endoscopy Center ALONE. It is not safe to do so. If you cannot meet these requirements, your procedure will be canceled. MEDICATION REQUIREMENTS For your safety, certain medications will need to be stopped or adjusted before you can have your procedure: BLOOD THINNERS: If you take blood thinners, such as Coumadin (warfarin), Plavix (clopidogrel), Ticlid (ticlopidine hydrochloride), Agrylin (anagrelide), Xarelto (Rivaroxaban), Pradaxa (Dabigatran), Eliquis (Apixaban), or Effient (Prasugrel), contact the physician who is prescribing these medications at least 2 weeks prior to your procedure to discuss any necessary adjustments. DIABETES: If you take medications for diabetes, your dosage may need to be adjusted. If you are being treated for diabetes with insulin, diabetic pills, or other injectable medications do not take your REGULAR dose after midnight on the day of your procedure. If you are taking any other types of insulin such as Lantus, Humalog, NPH (long-acting insulin), or 70/30 insulin, take half your normal dose the day before your procedure. DIABETES/WEIGHT MANAGEMENT: If you take medications for weight-loss, your dosage may need to be adjusted Contact the doctor who prescribes this medication for further instructions. If you take medications for weight-loss like semaglutide (Ozempic, Wegovy, Rybelsus), dulaglutide (Trulicity), liraglutide (Victoza, Saxenda), exenatide (Byetta, Bydureon), or lixisenatide (Adylyxin), stop your medication 1 week prior to your procedure. If you take medications like canagliflozin (Invokana), dapagliflozin (Farxiga, Forxiga), empagliflozin (Jardiance), stop your medication 3 days prior to your procedure. If you take ertugliflozin (Steglatro) stop your medication 4 days prior to your procedure. IRON: If you take iron pills, STOP them 1 week BEFORE your procedure, may resume after. OTHER MEDS: May take all other medications (including aspirin, antibiotics, water pills / diuretics like Lasix or Metolozone, blood pressure meds, etc.) at their usual scheduled time with water. DIET REQUIREMENTS The day before your colonoscopy, you may have a clear liquid diet (see below). The day of your colonoscopy, you may continue a clear liquid diet until 3 hours before your colonoscopy. Within 3 hours of your colonoscopy, take only any medications (as above) with a sip of water. Clear Liquid Diet Broth (chicken, beef or vegetable broth or bullion. Just the broth, no solids). Water Coffee or Tea (NO milk or creamer), but sugar and sugar substitutes are allowed. Clear liquids including clear, yellow, green, blue (NO red, NO orange, NO purple) Sodas / soft drinks; Gatorade or other sports drinks Fruit juice (strained; no-pulp); John-Aid or flavored drinks Plain Jell-O or other gelatins Popsicles or hard candy Bowel prep can work differently from person to person. ? Some people's bowels move slowly and they may need different instructions. Please see your doctor in office or virtually for personalized bowel prep instructions if you have: BOWEL PREPARATION (MIRALAX/GATORADE) Split Dosing Bowel Prep: This means drinking your bowel prep in two doses. Split dosing helps clean your colon better and makes it less likely that your procedure will be canceled. You will need to purchase the following (no prescriptions are needed): 64 ounces Gatorade, Propel, Crystal Lite or other noncarbonated clear liquid sports drink (NOT red, orange, or purple). Diabetic patients buy sugar-free, e. (more content not included)... [facility] 10-09-2024 Note Patient Outreach (IN TMWS) RAMANDEEP [id number]) 1980 F Date Time Provider Department 10/09/24 [facility] INTTAZ During your visit today, we recorded the following information about you: Allergies As of Date: 10/09/2024 Noted Allergy Reaction CHLORHEXIDINE 07/24/2019 2 - Rash DILAUDID (HYDROMORPHONE) 01/16/2022 4 - Hives WELLBUTRIN (BUPROPION) 05/26/2022 14 - Other: See Comments Comments: Constipation and dizziness Date Reviewed: 04/27/2022 Reviewed by: Domenica Peña Ma - Fully Assessed Visit Diagnosis:Encounter for screening mammogram for breast cancer [Z12.31] Order(s):[facility] [place] [[id number]] Order #: [id number] FUTURE Prescriptions as of 11/09/2024 - DULoxetine (CYMBALTA) 20 mg capsule Take [...] once daily. Problem List As Of Date 10/09/2024 Noted Resolved Persistent depressive disorder [F34.1] 07/07/2007 Encounter Status:Closed by [employer] on 11/09/24 [facility] 09-14-2024 Consult note [facility] 09-14-2024 Consult note Note Date/Time September 14, 2024 1:06pm [facility] Medical Records Department [address] [place] [address] Pre-Anesthesia Evaluation 09/14/24 1306 MR#: [id number] Acct: [id number] Name: RAMANDEEP SNOW Rep #:[id number] : 1980 44 From: Eliceo Ruzi MD PCP: Dr. Winifred Pedro MD Status:[facility] Y Race: C Location: [place] [address] ASA Classification* ASA Classification ASA Classification: 2 [...] Procedure(s): EGD Anesthesia History Anesthesia History - shade cutter: Anesthesia History - shade cutter Hx Hospitalization No 09/10/24 14:06 Any Problems [...] take am of surgery PONV PONV - shade cutter: PONV - shade cutter Female Yes 09/10/24 14:06 HX of Motion [...] 08/20/24 10:32 Respiratory Assessment Respiratory Assessment - shade cutter: Respiratory Tract Infection Hx - shade cutter Hx Respiratory Tract Infection No 09/10/24 14:06 STOP Sleep Apnea STOP Sleep Apnea - shade cutter: STOP Sleep Apnea - shade cutter Hx Hypertension Yes: controlled with med 09/10/24 [...] Tobacco Use History Tobacco Use History - shade cutter: Tobacco Use History - shade cutter Tobacco Use Smoking Status Never smoker 09/10/24 14:06 Hx Tobacco Use No 09/10/24 14:06 Years Smoking Packs Smoked per Day Smoking Cessation Date was within the last 15 years Hx Smoking Cessation Date Hx Smoking Cessation Counseling Hematologic Medial History Hematologic Hx - shade cutter: Hematologic Medical Hx - welt beater Hx of Blood Transfusion No 09/10/24 14:06 [...] confused, unrespo /Reproduction History /Reproductive History - shade cutter: /Reproductive Hx- shade cutter Hx Now No 09/10/24 14:06 Gestational Age [...] at home: Yes additional social history: Inocencio- [employer]. Patient works at [employer] Review of Systems (Anesthesia) ROS Narrative System reviewed and no additional complaints, except as documented. 09/14/24 1306 <Electronically signed by Eliceo Ruiz MD > Date _ Eliceo Ruiz MD Cosigner Signature: Date CC: ~ Signed [facility] Work Phone: 1(397) 361-439304-11-2025 Procedure note [facility] Medical Records Department [address] [place] [address] Operative Report - CC Letter MR#: [id number] Acct: [id number] Name: RAMANDEEP SNOW Rep #:[id number] : 1980 44 From: Srinivas Burgos DO PCP: Dr. Winifred Perdo MD Status:[facility] 09/14/2024 Winifred Pedro [facility] [address] [place] [id number] Re : Upper GI endoscopy procedure for [...] signed electronically. 09/14/24 1438 Date _ Srinivas Berumen Signature: Date (if indicated) CC: Dr. Winifred Pedro MD; Srinivas Burgos DO ~ Date Dictated: 09/14/24 1414 Date Transcribed: Test Inspection Engineer: RF Signed [facility]04-11-2025 Procedure note [facility] Medical Records Department [address] [place] [address] EGD Report MR#: [id number] Acct: [id number] Name: RAMANDEEP SNOW Rep #:[id number] : 1980 44 From: Srinivas Burgos DO PCP: Dr. Winifred Pedro MD Status:[facility] Patient Name: Ramandeep Snow Procedure Date: 09/14/2024 [...] pathology results. Procedure Code(s): --- Professional --- 17338, Esophagogastroduodenoscopy, flexible, transoral; with biopsy, single or multiple CPT copyright 2021 [employer]. All rights reserved. The codes documented in this report are preliminary and upon strapping machine tender review may be revised to meet current compliance requirements. Srinivas Burgos DO 09/14/2024 2:38:41 PM This report has been signed electronically. Number of Addenda: 0 Note Initiated On: 09/14/2024 2:14 PM 09/14/24 1438 Date _ Srinivasnaye Burgos DO Cosigner Signature: Date (if indicated) CC: Dr. Winifred Pedro MD; Srinivas Burgos DO ~ Date Dictated: 09/14/24 1414 Date Transcribed: Test Inspection Engineer: RF Signed [facility]04-11-2025 Consult note [facility] Medical Records Department [address] [place] [address]678 Anesthesia Postop Eval I 09/14/241436 MR#: [id number] Acct: [id number] Name: RAMANDEEP SNOW Rep #:[id number] : 1980 44 From: Mark Santiago PCP: Dr. Winifred Pedro MD Status:REG [facility] Y Race: C Location: [place] [address] Anesthesia: Postop Eval I Current Vital Signs [...] completed: Yes 09/14/241436 > Date _ Mark Vanegasignanika Signature: Date CC: ~ Signed [facility]04-11-2025 History and physical note [facility] Medical Records Department [address] [place] [address] History & Physical Exam 09/14/24 1409 MR#: [id number] Acct: [id number] Name: RAMANDEEP SNOW Rep #:[id number] : 1980 44 From: Srinivas Burgos DO PCP: Dr. Winifred Pedro MD Status:[facility] Location: [place] [address] HPI - General General Date of Admission: 09/14/24 Date of Service: 09/14/24 HPI Narrative HPI HPI Chief Complaint: constipation Details: RAMANDEEP SNOW, is a 43 F who presents to the office today for establishment with [facility]. Pt has been having issues with constipation [...] with recommendation for repeat in 10 years. [facility] Medical History Left upper quadrant abdominal pain [...] at home: Yes additional social history: Inocencio- [employer] Pallavi. Patient works at [employer] AddressHealth Constitutional Constitutional: Denies fatigue, fever(s), poor appetite, [...] epigastric pain and heartburn, she will start [id number] mg daily in the morning and famotidine [...] Winifred Pedro MD; Srinivas Burgos DO~ Signed [facility]04-11-2025 [facility] Medical Records Department [address] [place] [address] History Physical Exam 09/14/24 1409 MR#: [id number] Acct: [id number] Name: RAMANDEEP SNOW Rep #: [id number] : 1980 44 From: Srinivas Burgos DO PCP: Dr. Winifred Pedro MD Status:REG [facility] Location: [place] [address] HPI - General General Date of Admission: 09/14/24 Date of Service: 09/14/24 HPI Narrative HPI HPI Chief Complaint: constipation Details: RAMANDEEP SNOW, is a 43 F who presents to the office today for establishment with [facility]. Pt has been having issues with constipation [...] with recommendation for repeat in 10 years. [facility] Medical History Left upper quadrant abdominal pain [...] at home: Yes additional social history: Inocencio- [employer]. Patient works at [employer] AddressHealth Constitutional Constitutional: Denies fatigue, fever(s), poor appetite, [...] 13:28 09/14/24 13:28 Tempera (more content not included)...[facility]04-11-2025 Consult note [facility] Medical Records Department [address] [place] [address] Pre-Anesthesia Evaluation 09/14/24 1306 MR#: [id number] Acct: [id number] Name: RAMANDEEP SNOW Rep #:[id number] : 1980 44 From: Eliceo Ruiz MD PCP: Dr. Winfired Pedro MD Status:REG [facility] Y Race: C Location: [place] [address] ASA Classification* ASA Classification ASA Classification: 2 [...] Procedure(s): EGD Anesthesia History Anesthesia History - shade cutter: Anesthesia History - shade cutter Hx Hospitalization No 09/10/24 14:06 Any Problems [...] take am of surgery PONV PONV - shade cutter: PONV - shade cutter Female Yes 09/10/24 14:06 HX of Motion [...] 08/20/24 10:32 Respiratory Assessment Respiratory Assessment - shade cutter: Respiratory Tract Infection Hx - shade cutter Hx Respiratory Tract Infection No 09/10/24 14:06 STOP Sleep Apnea STOP Sleep Apnea - shade cutter: STOP Sleep Apnea - shade cutter Hx Hypertension Yes: controlled with med 09/10/24 [...] Tobacco Use History Tobacco Use History - shade cutter: Tobacco Use History - shade cutter Tobacco Use Smoking Status Never smoker 09/10/24 14:06 Hx Tobacco Use No 09/10/24 14:06 Years Smoking Packs Smoked per Day Smoking Cessation Date was within the last 15 years Hx Smoking Cessation Date Hx Smoking Cessation Counseling Hematologic Medial History Hematologic Hx - shade cutter: Hematologic Medical Hx - welt beater Hx of Blood Transfusion No 09/10/24 14:06 [...] confused, unrespo /Reproduction History /Reproductive History - shade cutter: /Reproductive Hx- shade cutter Hx Now No 09/10/24 14:06 Gestational Age [...] at home: Yes additional social history: Inocencio- [employer]. Patient works at [employer] Review of Systems (Anesthesia) ROS Narrative System reviewed and no additional complaints, except as documented. 09/14/24 1306 > Date _ Eliceo Ruiz MD Cosigner Signature: Date CC: ~ Signed [facility]03-24-2025 Evaluation note* Diagnosis Onset Date Resolution Status Admit Date Bilateral primary osteoarthritis of knee acute August 3:24pm Heartburn acute September 14 1:04pm Constipation acute October 26 7:31am Heartburn acute October 26, 2024 7:31am Climacteric acute November 08 8:00am Low iron acute November 08, 2024 8:00am Encounter for routine gynecological examination noneactive November 082024 8:00am [facility] Work Phone: 1([phone]) [phone] Evaluation note* Diagnosis Onset Date Resolution Status Admit Date Constipation acute July 7:30am Heartburn acute July 13, 2024 7:30am Abdominal symptoms noneactive 2024 7:30am Bilateral primary osteoarthritis of knee acute August 3:24pm Heartburn acute September 14 1:04pm [facility] Work Phone: 1(640) 524-143202-07-2025 Evaluation note* Diagnosis Onset Date Resolution Status Admit Date Constipation acute July 7:30am Heartburn acute July 13, 2024 7:30am Abdominal symptoms noneactive 2024 7:30am Bilateral primary osteoarthritis of knee acute August 3:24pm Heartburn acute September 14 1:04pm Constipation acute October 26 7:31am Heartburn acute October 26, 2024 7:31am [facility] Work Phone: [phone]) 755-979602-07-2025 Evaluation note* Diagnosis Onset Date Resolution Status Admit Date Constipation acute July 7:30am Heartburn acute July 13, 2024 7:30am Abdominal symptoms noneactive 2024 7:30am Bilateral primary osteoarthritis of knee acute August 3:24pm Heartburn acute September 14 1:04pm Constipation acute October 26 7:31am Heartburn acute October 26, 2024 7:31am Encounter for routine gynecological examination noneactive November 082024 8:00am [facility] Work Phone: [phone]) 961-677801-06-2025 Evaluation note* Diagnosis Onset Date Resolution Status Admit Date Left upper quadrant abdomina l pain acute June 11 8:02am Anxiety and depression chronic Ja nuary 2024 8:02am Hypertension chronic June 11, 2024 8:02am Constipation acute July 7:30am Heartburn acute July 13, 2024 7:30am Abdominal symptoms noneactive Februa 2024 7:30am Bilateral primary osteoarthritis of knee acute August 3:24pm Heartburn acute September 14 1:04pm [facility] Work Phone: 1([phone]) 625-665411-22-2022 History of Present illness Narrative* Stewart Frederick MD - 04/27/2022 1:14 PM EST This note was created using [employer] Experienceriter. Subjective Ramandeep Snow is a 41 year [...] indicated. Stewart Frederick MD [facility] Miscellaneous Notes* Telephone Encounter - Domenica Peña Ma - 04/07/2022 1:18 PM EDT Received 03/29 PSG results from [facility]. Patient has follow-up 04/[address] Frederick. Placed in upcoming appointments file. documented in this encounterW[facility]08-13-2022 History of Present illness Narrative* Stewart Frederick MD - 01/16/2022 8:40 AM EDT This note was created using [employer]. Subjective Ramandeep Snow is a 41 year [...] daytime fatigue. Went to information talk at [facility] and talked to doctor there. GERD, BRANDEE,RLS [...] (PSG) Stewart Frederick MD documented in this encounterW[facility]05-03-2022 History of Present illness Narrative* Tami Bucio APRN.[facility]AN[employer] SHAKER - 10/06/2021 7:14 AM EDT SUBJECTIVE: HEPATITIS [...] 2010. Most recently seen by: CASSIA ELLIOTT Irrigation Engineer: Dr Lazo [employer]: Celia Kapadia and Dr Gallego [facility] Recent labwork: August 2021 ER/Hospitalization:no recent Outside [...] sleep. 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 Notes she is not [...] Notes has upcoming appointment with Celia Kapadia [employer] provider later this month. Review of Systems [...] 250 mg by mouth. calcium carbonate/vitamin D2 ([id number] ORAL) Take by mouth. B-complex with vitamin [...] type - ICD9: 780.79, ICD10: R53.83 Labs [facility] August 2021 within normal limits 5. Weight gain - ICD9: 783.1, ICD10: R63.5 stable, recheck labs 3 mos - COMP METABOLIC PANEL 6. Encounter for screening mammogram for breast cancer - ICD9: V76.12, ICD10: Z12.31 Routine screening recommended, routine self-exam endorsed - VALE SCREENING W SYDNEY - completed [facility], within normal limits 7. . Insomnia, unspecified type - ICD9: 780.52, ICD10: G47.00 - CONSULT TO [facility] - TRAZODONE 50 MG TABLET 8. Constipation, unspecified constipation type - ICD9: 564.00, ICD10: K59.00 Currently taking magnesium and fdhv-xsz-jdihgra T to help with this. Increasing exercise should help. Endorse fiber and sufficient fluid intake MiraLAX if needed, ryxm-ven-vilitob, but can be taken every day if [...] Level: 4 - Moderate documented in this encounterW[facility]04-01-2022 History of Present illness Narrative* Tami Bucio APRN.CNS - 09/04/2021 7:40 AM EDT SUBJECTIVE: HEPATITIS [...] 2010. Most recently seen by: CASSIA ELLIOTT Irrigation Engineer: Dr Lazo [employer]ER: Celia Kapadia and Dr Gallego [facility] Recent labwork: August 2021 ER/Hospitalization:no recent Outside [...] sleep. 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 Notes she is not [...] 250 mg by mouth. calcium carbonate/vitamin D2 ([id number]-092-H ORAL), Take by mouth. B-complex with vitamin [...] therapy. Interested in counseling. Agreeable to social science manager calling for follow-up. Recommend trial of trazodone to see if this works, stop taking and let us know if any problems. She notes trouble currently also with falling and staying asleep. Notes significant stress at work, [facility] - CONSULT TO PRIMARY CARE [...] 564.00, ICD10: K59.00 Currently taking magnesium and oqti-mpf-wcvjewu T to help with this. Increasing exercise should help. Endorse fiber and sufficient fluid intake MiraLAX if needed, gfaj-jjj-iklyvaq, but can be taken every day if needed 10. Vitamin D deficiency - ICD9: 268.9, ICD10: E55.9 Continue with supplemental unchanged, recent level was within normal limits- CHOLECALCIFEROL (VITAMIN D3) 50 MCG (2,000 UNIT) CAPSULE Recent labs completed, August 2021 at [facility] 1 month recheck with me, 6 months follow-up with Dr. 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 Weight Management Consultation OBESITY, PCOS PCOS ROUTINE Reason for Visit Fatigue Encounter for routine gynecological examination Arthritis BMI 32.0-32.9,adult Decreased libido Other obesity Polycystic ovarian syndrome Anxiety and depression Hypertension IBS (irritable bowel syndrome) Fatigue [facility] Work Phone: Consult note Author Mark Santiago [facility] Note Date/Time September 14, 2024 2:3 7pm [facility] Medical Records Department [address] [place] [address] Anesthesia Postop Eval I 09/14/241436 MR#: [id number] Acct: [id number] Name: RAMANDEEP SNOW Rep #:[id number] : 1980 44 From: Mark Santiago PCP: Dr. Winifred Pedro MD Status:REG [facility] Y Race: C Location: [place] [address] Anesthesia: Postop Eval I Current Vital Signs [...] document: Postop Eval 1 completed: Yes 09/14/241436 <Electronically signed by Mark Santiago > Date _ Mark Malhotra Signature: Date CC: ~ Signed [facility] Work Phone: Consult note Author Eliceo Ruiz [facility] Note Date/Time September 14, 2024 3:3 9pm [facility] Medical Records Department [address] [place] [address] Anesthesia Postop Eval II 09/14/24 1459 MR#: [id number] Acct: [id number] Name: RAMANDEEP SNOW Rep #:[id number] : 1980 44 From: Eliceo Ruiz MD PCP: Dr. Winifred Pedro MD Status:REG [facility] Y Race: C Location: [address] Anesthesia Postop Eval I Sum Postop [...] Pain Level: 0 nausea: No Vomiting: No 09/14/241458 <Electronically signed by Eliceo Ruiz MD > Date _ Eliceo Ruiz MD Cosigner Signature: Date CC: ~ Signed [facility] Work Phone: Evaluation note* Diagnosis Anxiety [...] vitamin D deficiency [facility] Diagnosis Binge eating disorder- Primary Anxiety and depression Dysthymic disorder documented in this encounter [facility] note* Diagnosis Onset Date Resolution Status Arthritis acute Screening for thyroid disorder acute Chronic fatigue chronic Hypertension chronic [facility] Work Phone: Evaluation note* Diagnosis Binge eating disorder- Primary Anxiety and depression Dysthymic disorder Fatigue, unspecified type documented in this encounter [facility] note* Diagnosis Onset Date Resolution Status Encounter [...] and somatic dysfunction of thoracic region acute [facility] Work Phone: Evaluation note* Diagnosis Hypertension, unspecified type- Primary Vitamin D deficiency Unspecified vitamin D deficiency LPRD (laryngopharyngeal reflux disease) Other diseases of larynx Encounter for long-term current use of medication RLS (restless legs syndrome) Restless legs syndrome (RLS) Daytime sleepiness documented in this encounter [facility] note* Diagnosis Onset Date Resolution Status Back [...] and somatic dysfunction of thoracic region acute [facility] Work Phone: Evaluation note* Diagnosis Hypertension, unspecified type- Primary LPRD (laryngopharyngeal reflux disease) Other diseases of larynx Chronic constipation Unspecified constipation Vitamin D deficiency Unspecified vitamin D deficiency Encounter for long-term current use of medication Encounter for immunization Need for other specified prophylactic vaccination against single bacterial disease Persistent depressive disorder documented in this encounter [facility] note* Diagnosis Onset Date Resolution Status COVID acute Encounter for screening for COVID-19 acute [facility] Work Phone: Evaluation noteNo assessment information available [facility] Work Phone: Evaluation note* Diagnosis Onset Date Resolution Status Fatigue acute Encounter for routine gynecological examination noneactive [facility] Work Phone: Evaluation note* Diagnosis Encounter for screening mammogram for breast cancer documented in this encounter [facility] note* Diagnosis Onset Date Resolution Status Fatigue resolved Encounter for routine gynecological examination noneactive Arthritis acute BMI 32.0-32.9,adult acute Decreased libido acute Other obesity acute Polycystic ovarian syndrome acute Anxiety and depression chron ic Hypertension chronic IBS (irritable bowel syndrome) chronic Fatigue resolved [facility] Work Phone: Evaluation note* Diagnosis Onset [...] IBS (irritable bowel syndrome) chronic Insomnia chronic [facility] Work Phone: Evaluation note* Diagnosis Onset [...] Anxiety and depression chron ic Hypertension chronic [facility] Work Phone: Evaluation note* Diagnosis Encounter for screening mammogram for breast cancer [facility] Diagnosis Encounter for screening mammogram for breast cancer documented in this encounter [facility] Author Srinivas Burgos [facility] Note Date/Time September 14, 2024 [facility] [address] [place] [address] History & Physical Exam 09/14/24 1409 MR#: [id number] Acct: [id number] Name: RAMANDEEP SNOW Rep #:[id number] : 1980 44 From: Srinivas Burgos DO PCP: Dr. Winifred Pedro MD Status:[facility] Location: [place] [address] HPI - General General Date of Admission: 09/14/24 Date of Service: 09/14/24 HPI Narrative HPI HPI Chief Complaint: constipation Details: RAMANDEEP SNOW, is a 43 F who presents to the office today for establishment with [facility]. Pt has been having issues with constipation [...] with recommendation for repeat in 10 years. [facility] Medical History Left upper quadrant abdominal pain [...] at home: Yes additional social history: Inocencio- [employer] Mait. Patient works at [employer] AddressHealth Constitutional Constitutional: Denies fatigue, fever(s), poor appetite, [...] epigastric pain and heartburn, she will start ujrturfmvkdp69 mg daily in the morning and famotidine [...] Winifred Pedro MD; Srinivas Burgos DO~ Signed [facility] Work Phone: Reason for referral (narrative)* Diagnostic Procedure Only (Routine) - Pending Review Specialty Diagnoses / Procedures Referred By Soledad tomlinson Referred To Contact [facility] Diagnoses Encounter for screening mammogram for breast cancer Procedures VALE SCREENING W SYDNEY SCREENING DIGITAL BREAST TOMOSYNTHESIS BI SCREENING MAMMOGRAPHY BI 2-VIEW BREAST INC Tami Leigh APRN.CNS [address] [place] [address] [facility] [address] [place] [address] Referral ID Status Reason Start Date Expiration Date Visits Requested Visits Authorized [id number] Pending Review Auto-Generat ed Referral 09/04/2021 10/04/2022 1 1 [facility] for referral (narrative)* Diagnostic Procedure Only (Routine) - Pending Review Specialty Diagnoses / Procedures Referred By Soledad tomlinson Referred To Contact [facility] Diagnoses Encounter for screening mammogram for breast cancer Procedures VALE SCREENING SCREENING MAMMOGRAPHY BI 2-VIEW BREAST INC Stewart Farfan MD [address] [place] [address] [facility] [address] [place] [address] Referral ID Status Reason Start Date Expiration Date Visits Requested Visits Authorized [id number] Pending Review Auto-Generat ed Referral 08/11/2022 09/10/2023 1 1 [facility] for referral (narrative)* Diagnostic Procedure Only (Routine) - Pending Review Specialty Diagnoses / Procedures Referred By Soledad tomlinson Referred To Contact [facility] Diagnoses Encounter for screening mammogram for breast cancer Procedures VALE SCREENING SCREENING MAMMOGRAPHY BI 2-VIEW BREAST INC CAD Stweart Frederick MD [address] [place] [address] [facility] [address] [facility] [place] [address] Referral ID Status Reason Start Date Expiration Date Visits Requested Visits Authorized [id number] Pending Review Auto-Generat ed Referral 11/09/2023 12/08/2024 1 1 [facility] for referral (narrative)No reason for referral information [facility]WMer[facility] Work Phone: Chief Complaint and Reason for Visit Chief Complaint bp f/u 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 RX HERE Febr uary 2024 4:30pm BILATERAL KNEES August 27, 2024 3:2 4pm Reason for Visit Admit Date Left upper quadrant abdominal pain Janua ry 2024 8:02am Anxiety and depression June 11, [...] 2024 7:30am CERVICAL DISC DEGENERATION. RX HERE [facility] 2024 4:30pm BILATERAL KNEES August 27, 2024 3:2 4pm Reason for Visit Admit Date Constipation July 13, 2024 7 :30am Heartburn July 13, 2024 7 :30am Abdominal symptoms July 13, 2024 7 :30am Bilateral primary osteoarthritis of knee August 27, 2024 3:24pm Heartburn September 14, 2024 1:0 4pm Chief Complaint Admit Date Abdominal complaints July 13, 2024 7:30am CERVICAL DISC DEGENERATION. RX HERE [facility] 2024 4:30pm BILATERAL KNEES August 27, 2024 [...] m Heartburn October 26, 2024 7:31a m Chief Complaint Admit Date Abdominal complaints July 13, 2024 7:30am CERVICAL DISC DEGENERATION. 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) November 08, 2024 8:00a m Reason for Visit Admit Date Bilateral primary osteoarthritis of knee August 27, 2024 3:24pm Heartburn September 14, 2024 1:0 4pm Constipation October 26, 2024 7:31a m Heartburn October 26, 2024 7:31a m Climacteric November 08, 2024 8:00a m Low iron November 08, 2024 8:00a m Encounter for routine gynecological exam ination November 08, 2024 8:00am Chief Complaint Admit Date BILATERAL KNEES August 27, 2024 3:2 4pm SCREENING October 25, 2024 7:10a m Test Result October 26, 2024 7:31a m EMPLOYEE LABS November 05, 2024 7:30a m 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) November 08, 2024 8:00a m 6 M FU December 10, 2024 8:03a m Family History No Family History Records [...] No February 27, 2021 11:57am Power of Superintendent Tests No February 11:57am Advance Directive Response Recorded Date/ Time Advance Directives No April 2:00pm Living Will No February 27, 2021 10:57am Power of Superintendent Tests No February 10:57am Advance Directive Response Recorded Date/ Time Advance Directives No October 18 9:01am Living Will No October 18, 2022 9 :01am Power of Superintendent Tests No October 18, 2022 9:01am Advance Directive Response Recorded Date/ Time Advance Directives No October 18 8:01am Living Will No October 18, 2022 8 :01am Power of Superintendent Tests No October 18, 2022 8:01am Advance Directive Response Recorded Date/ Time Advance Directives No August 20, 2 025 10:32am Living Will No September 10, 2024 2:06pm Do you have a Healthcare Power of Superintendent Tests? No September 10, 2024 2:06pm Summary Purpose Additional Source Comments Source Comments (unrecognize d section and content) In the event this informatio n is protected by the Federal Confidentiality of Alcohol and Drug Abuse Patient Records regulations: The Federal rules restrict any use of the information to criminally investigate or prosecute any alcohol or drug abuse patient.[facility] the event this information is protected by the Federal Confidentiality of Alcohol and Drug Abuse Patient Records regulations: The Federal rules restrict any use of the information to criminally investigate or prosecute any alcohol or drug abuse patient.[facility] Center[facility] the event this information is protected by the Federal Confidentiality of Alcohol and Drug Abuse Patient Records regulations: The Federal rules restrict any use of the information to criminally investigate or prosecute any alcohol or drug abuse patient.[facility] Center[facility] the event this information is protected by the Federal Confidentiality of Alcohol and Drug Abuse Patient Records regulations: The Federal rules restrict any use of the information to criminally investigate or prosecute any alcohol or drug abuse patient.[facility] Center[facility] the event this information is protected by the Federal Confidentiality of Alcohol and Drug Abuse Patient Records regulations: The Federal rules restrict any use of the information to criminally investigate or prosecute any alcohol or drug abuse patient.[facility] Center[facility] the event this information is protected by the Federal Confidentiality of Alcohol and Drug Abuse Patient Records regulations: The Federal rules restrict any use of the information to criminally investigate or prosecute any alcohol or drug abuse patient.[facility] CenterIn the event this information is protected by the Federal Confidentiality of Alcohol and Drug Abuse Patient Records regulations: The Federal rules restrict any use of the information to criminally investigate or prosecute any alcohol or drug abuse patient.[facility] CenterIn the event this information is protected by the Federal Confidentiality of Alcohol and Drug Abuse Patient Records regulations: The Federal rules restrict any use of the information to criminally investigate or prosecute any alcohol or drug abuse patient.[facility] CenterIn the event this information is protected by the Federal Confidentiality of Alcohol and Drug Abuse Patient Records regulations: The Federal rules restrict any use of the information to criminally investigate or prosecute any alcohol or drug abuse patient.[facility] CenterIn the event this information is protected by the Federal Confidentiality of Alcohol and Drug Abuse Patient Records regulations: The Federal rules restrict any use of the information to criminally investigate or prosecute any alcohol or drug abuse patient.[facility] CenterIn the event this information is protected by the Federal Confidentiality of Alcohol and Drug Abuse Patient Records regulations: The Federal rules restrict any use of the information to criminally investigate or prosecute any alcohol or drug abuse patient.[facility] CenterIn the event this information is protected by the Federal Confidentiality of Alcohol and Drug Abuse Patient Records regulations: The Federal rules restrict any use of the information to criminally investigate or prosecute any alcohol or drug abuse patient.[facility] CenterIn the event this information is protected by the Federal Confidentiality of Alcohol and Drug Abuse Patient Records regulations: The Federal rules restrict any use of the information to criminally investigate or prosecute any alcohol or drug abuse patient.[facility] Reason for Visit (unrecogniz ed section and content) Reason Comments F/U 6 months Specialty Diagnoses / Procedures Referred By Soledad t Referred To Contact Internal Medicine / INTERNAL MEDICINE Diagnoses follow up/employee physical Procedures OFFICE/OUTPATIENT ESTABLISHED LOW MDM 20-29 MIN 4C EST Tami Bucio APRN.[employer] [address] [place] [address] Tami Bucio APRN.[employer] [address] [place] [address] Referral ID Status Reason Start Date Expiration Date V isits Requested Visits Authorized [id number] Authorized 10/06/2021 06/05/2022 10 10 Reason Comments Fatigue Medication Follow-up Reason Comments Establish Care Specialty Diagnoses / Procedures Referred By Contac t Referred To Contact Internal Medicine / INTERNAL MEDICINE Diagnoses to establish Procedures 4C EXCEPTION Self Tami Bucio, RAFAELA.[employer] [address] [place] [address] Referral ID Status Reason Start Date Expiration Date Visits Re quested Visits Authorized [id number] Closed 09/04/2021 06/05/2022 1 1 Reason Comments Physical Reason Comments Results 03/29 [facility] Reason Onset Date Comments Outpatient Colonoscopy 10/10/2024 Patient i s overdue for colorectal cancer screening since 08/27/23. Please schedule open access colonoscopy. Care Teams (unrecognized sec tion and content) Sat Tutor Relationship Specialty Start Date End Date Stewart Frederick MD [facility] [place] [address] PCP - General Internal Medicine 09/04/21 Sat Tutor Relationship Specialty Start Date End Date Stewart Frederick MD [address] [place] [id number] PCP - General Internal Medicine 09/04/21 Sat Tutor Relationship Specialty Start Date End Date Stewart Frederick MD [address] [place] [id number] PCP - General Internal Medicine 09/04/21 Sat Tutor Relationship Specialty Start Date End Date Stewart Frederick MD [address] [place] [address] PCP - General Internal Medicine 09/04/21 Sat Tutor Relationship Specialty Start Date End Date Stewart Frederick MD [address] [place] [id number] PCP - General Internal Medicine 09/04/21 Sat Tutor Relationship Specialty Start Date End Date Stewart Frederick MD [address] [place] [address] PCP - General Internal Medicine 09/04/21 Sat Tutor Relationship Specialty Start Date End Date Stewart Frederick MD [address] [place], [place] [id number] PCP - General Internal Medicine 09/04/21 Sat Tutor Relationship Specialty Start Date End Date Stewart Frederick MD [address] [place], [place] [id number] PCP - General Internal Medicine 09/04/21 Team Status: Active Member Role Status Dates Dr. Tony Severino MD Family Provider Active Dr. Stewart Frederick MD Primary Care Provider Active Team Status: Inactive Member Role Status Dates Dr. Stewart Frederick MD Primary Care Provider, Referr ing Provider Active DINAH Valente Attending Provider Active Team Status: Inactive Member Role Status Dates Dr. Stewatr Frederick MD Primary Care Pr ovider, Attending [...] CNM Attending Provider, Referring Pr ovider Active Sat Tutor Relationship Specialty Start Date End Date Stewart Frederick MD [address] [place], [place] [id number] PCP - General Internal Medicine 09/04/21 Team Status: Inactive Member Role Status Dates Dr. Stewart Frederick MD Primary Care Provider, Referr ing Provider Active Dr. Hilda Gallego MD Attending Provider Active Team Status: Active Member Role Status Dates Dr. Stewart Frederick MD Primary Care Provider Active Dr. Tian Schmitz MD Attending Provider Active Dr. Hilda Gallego MD Referring Provider Active Team Status: [...] Dr. Hilda Gallego MD Attending Provider Active Sat Tutor Relationship Specialty Start Date End Date Stewart Frederick MD [address] [place] [address] PCP - General Internal Medicine 09/04/21 Team [...] October 26, 2024 End: October 26, 2024 Team Status: Active Member Role Status Dates Dr. Winifred Pedro MD Primary Care Provider Active Start: November 05, 2024 Health Risk Assessment Attending Provider Active Start: November 05, 2024 Health Risk Assessment Referring Provider Active Start: November 05, 2024 Team Status: Inactive Member Role Status Dates Dr. Winifred Pedro MD Primary Care Provider Active Start: November 08, 2024 End: November 08, 2024 Dr. Winifred Pedro MD Referring Provider Active Start: November 08, 2024 End: November 08, 2024 DINAH Goldman Attending Provider Active Start: November 08, 2024 End: November 08, 2024 Sat Tutor Relationship Specialty Start Date End Date Stewart Frederick MD [address] [place] [address] PCP - General Internal Medicine 09/04/21 10/10/24 [place] [address] [place] [address] [id number] PCP - General Internal Medicine 10/11/24 Tami Bucio, COMPUTER NETWORK SPECIALIST.[employer] [address] [place] [address] [facility] Internal Medicine 05/14/24 Judith Cota COMPUTER NETWORK SPECIALIST.PLASTIC INJECTION MOLD MAKER [address] [place], [place] [address] [facility] Internal [facility] 08/28/24 Sat Tutor Relationship Specialty Start Date End Date Stewart Frederick MD [address] [place] [address] PCP - General Internal Medicine 09/04/21 10/10/24 Winifred Pedro MD [address] [place], [place] [address] PCP - General Internal Medicine 10/11/24 Tami Bucio APRN.[employer] [address] [place] [address] [facility] Internal [facility] 05/14/24 Judith Cota COMPUTER NETWORK SPECIALIST.PLASTIC INJECTION MOLD MAKER [address] [place], [place] [address] [facility] Internal Medicine 08/28/24 Team Status: Inactive Member Role Status Dates Dr. Winifred Pedro MD Primary Care Provider Active Start: November 09, 2024 End: November 09, 2024 DINAH Goldman Attending Provider Active Start: November 09, 2024 End: November 09, 2024 DINAH Goldman Referring Provider Active Start: November 09, 2024 End: November 09, 2024 Team Status: Active Member Role/Relationship Status Dates Dr. Winifred Pedro MD Primary Care Provider Active Team Status: Inactive Member Role/Relationship Status Dates Dr. Winifred Pedro MD Primary Care Provider Active Start: August 27, 2024 End: August 27, 2024 Dr. Winifred Pedro MD Referring Provider Active Start: August 27, 2024 End: August 27, 2024 Dr. Armando Del Rosario DO Attending Provider Active Start: August 27, 2024 End: August 27, 2024 Team Status: Inactive Member Role/Relationship Status Dates Dr. Winifred Pedro MD Primary Care Provider Active Start: September 14, 2024 End: September 14, 2024 Dr. Winifred Pedro MD Referring Provider Active Start: September 14, 2024 End: September 14, 2024 Dr. Srinivas Burgos DO Attending Provider Active Start: September 14, 2024 End: September 14, 2024 Team Status: Active Member Role/Relationship Status Dates Dr. Winifred Pedro MD Primary Care Provider Active Start: September 14, 2024 Dr. Winifred Pedro MD Referring Provider Active Start: September 14, 2024 Dr. Srinivas Burgos DO Attending Provider Active Start: September 14, 2024 Dr. Srinivas Burgos DO Other Provider Active St art: September 14, 2024 Team Status: Inactive Member Role/Relationship Status Dates Dr. Winifred Pedro MD Primary Care Provider Active Start: October 10, 2024 End: October 10, 2024 ZEINA Bach Attending Provider Active Start: October 10, 2024 End: October 10, 2024 ZEINA Bach Referring Provider Active Start: October 10, 2024 End: October 10, 2024 Team Status: Inactive Member Role/Relationship Status Dates Dr. Winifred Pedro MD Primary Care Provider Active Start: October 25, 2024 End: October 25, 2024 Sangeeta Dia CNM Attending Provider Active S tart: October 25, 2024 End: October 25, 2024 Sangeeta Dia CNM Referring Provider Active S tart: October 25, 2024 End: October 25, 2024 Team Status: Inactive Member Role/Relationship Status Dates Dr. Winifred Pedro MD Primary Care Provider Active Start: October 26, 2024 End: October 26, 2024 Dr. Winifred Pedro MD Referring Provider Active Start: October 26, 2024 End: October 26, 2024 ZEINA Bach Attending Provider Active Start: October 26, 2024 End: October 26, 2024 Team Status: Active Member Role/Relationship Status Dates Dr. Winifred Pedro MD Primary Care Provider Active Start: November 05, 2024 Health Risk Assessment Attending Provider Active Start: November 05, 2024 Health Risk Assessment Referring Provider Active Start: November 05, 2024 Team Status: Inactive Member Role/Relationship Status Dates Dr. Winifred Pedro MD Primary Care Provider Active Start: November 08, 2024 End: November 08, 2024 Dr. Winifred Pedro MD Referring Provider Active Start: November 08, 2024 End: November 08, 2024 DINAH Goldman Attending Provider Active Start: November 08, 2024 End: November 08, 2024 Team Status: Inactive Member Role/Relationship Status Dates Dr. Winifred Pedro MD Primary Care Provider Active Start: November 09, 2024 End: November 09, 2024 DINAH Goldman Attending Provider Active Start: November 09, 2024 End: November 09, 2024 DINAH Goldman Referring Provider Active Start: November 09, 2024 End: November 09, 2024 Team Status: Inactive Member Role/Relationship Status Dates Dr. Winifred Pedro MD Primary Care Provider Active Start: December 10, 2024 End: December 10, 2024 Dr. Winifred Pedro MD Attending Provider Active Start: December 10, 2024 End: December 10, 2024 INFORMATION SOURCE (unrecogn ized section and content) DATE CREATED AUTHOR 11/12/2024 [facility] DATE CREATED AUTHOR AUTHOR'S JANAK ATION 03/30/2025 [facility] FOR RECORDS PERTAINING TO PATIENTS WHO ARE [...] BE BASED ON THE PRIMARY CLINICAL RECORDS. [employer] provides no warranty or guarantee of the accuracy or completeness of information in this document.
== END | disposition home or self-care (01) ==
LOC: PSN 07:28
PROVIDERS: PCP Internal Medicine; Referring Provider Internal Medicine; Visit Provider Internal Medicine
DX: I10 Essential (primary) hypertension (principal)
CPT/HCPCS: 93005

== ENCOUNTER → 2025-04-18 | Outpatient (CLI) | payer OTHER, SELFPAY ==
--- NOTE | 2025-04-18 08:01 | ECHOD_ITS ---
Reason For Study ECHO/Echo Complete
== END | disposition home or self-care (01) ==
LOC: CVS 08:00
PROVIDERS: PCP Internal Medicine; Referring Provider Internal Medicine; Visit Provider Internal Medicine
DX: I10 Essential (primary) hypertension (principal)
CPT/HCPCS: 93306